=== PATIENT | male | born 1945 | race Caucasian/White ===

== ENCOUNTER 2025-01-21 11:18 | Emergency (ER) | payer MEDICARE, OTHER, SELFPAY ==
[2025-01-21] VITALS (11 sets, daily range): BP systolic 121–154; BP diastolic 61–79; PULSE 65–99; RESP 15–22; TEMP 36.9; O2SAT 98–100
--- NOTE | ~2025-01-21 | CT_ITS ---
EXAMINATION: CTA chest PE protocol DATE: 01/21/2025 15:00 CDT INDICATION: TECHNIQUE: Computed tomographic angiography (CTA) of the chest was performed with 100 mL Omnipaque-35 0 intravenous contrast. The dose-length product was 532.10 mGy-cm. Maximum intensity projection 3D-re constructions of the aorta and other arteries were constructed by the technologist on a separate work station. COMPARISON: None. FINDINGS/OBSERVATIONS: PULMONARY ARTERIES: No filling defect is identified within the main or proximal pulmonary artery. The main pulmonary artery is not enlarged. THORACIC AORTA: No aneurysmal dilatation or dissection is present. The great vessels are intact LUNGS: Diffuse panlobular emphysema. Trace pleural thickening. Peripheral honeycombing is noted. Within the superior segment of the right lower lobe is a 3.5 mm calcified nodule, corresponding to th e abnormality seen on plain radiograph. An additional 3 mm calcified nodule is identified within the right middle lobe, consistent with prior granulomatous disease and corresponding to the abnormalities seen on plain radiograph. Peripheral bleb formation is also noted, right greater than left. The remainder of the lungs are clear. MEDIASTINUM: Calcified lymph nodes within the mediastinum, consistent with prior granulomatous diseas e. No morphologically suspicious or pathologically enlarged lymph nodes are identified within the med iastinum or bilateral axilla. BONES OF THE CHEST: No acute fracture. There are bridging endplate osteophytes at multiple levels in the thoracic spine, consistent with dif fuse idiopathic skeletal hyperostosis (DISH). No lytic or blastic lesions. HEART: The heart is of normal size, without pericardial effusion. IMPRESSION: No pulmonary embolus. No thoracic aortic dissection. Findings consistent with prior granulomatous disease corresponding to the abnormalities seen on plain radiograph for which no further follow-up is needed. Additional findings consistent with chronic lung disease, as detailed above. Reviewed, dictated and finalized at location A. IMPRESSION: No pulmonary embolus. No thoracic aortic dissection. Findings consistent with prior granulomatous disease corresponding to the abnor malities seen on plain radiograph for which no further follow-up is needed. Additional findings consistent with chronic lung disease, as detailed above.
--- NOTE | ~2025-01-21 | XR_ITS ---
HISTORY: recent R knee surgery . Elevated blood sugar and lactic acidosis. COMPARISON: None TECHNIQUE: 4 views of the right knee were performed FINDINGS: Post right knee arthroplasty with patellar resurfacing in expected position. Lucency within the distal shaft of the femur and proximal shaft of the tibia suggesting prior hardwar e implementation at these sites. Soft tissue swelling is also noted, to be expected. No periprosthetic fracture is appreciated. IMPRESSION: Expected perioperative appearance of a right knee arthroplasty with patellar resurfacing , as detailed above Reviewed, dictated and finalized at location A. IMPRESSION: Expected perioperative appearance of a right knee arthroplasty wit h patellar resurfacing, as detailed above
--- NOTE | ~2025-01-21 | XR_ITS ---
CHEST RADIOGRAPH, PA AND LATERAL CLINICAL HISTORY: intermittent chest pain . COMPARISON: None available TECHNIQUE: PA and lateral views of the chest. FINDINGS Small hiatal hernia. The remainder of the cardiomediastinal silhouette is otherwise unremarkable. 8.6 mm asymmetry within the right upper lobe which noncontrast enhanced CT suggested for further eval uation. This may simply represent a calcified granuloma versus a bone island on the right scapula. The lungs are otherwise clear. IMPRESSION: Findings within the right upper lobe for which noncontrast enhanced CT is suggested, if the patient i s clinically able. Reviewed, dictated and finalized at location A. IMPRESSION: Findings within the right upper lobe for which noncontrast enhanced CT is sugge sted, if the patient is clinically able.
[2025-01-21 11:49] LABS: Hematocrit 45.3 % (42.0-52.0); Hemoglobin 14.6 g/dL (14.0-18.0); Immature Granulocyte Percent A 0.1 % (0-0.5); Lymphocytes Absolute Auto 2.12 K/mm3 (0.9-3.2); Mean Corpuscular HGB Conc 32.2 g/dl (32-36); Mean Corpuscular Hemoglobin 31.9 pg (26-34); Mean Corpuscular Volume 98.9 fl (80-100); Nucleated Red Blood Cells Absolute Auto 0.000 K/mm3 (0.0-0.012); Nucleated Red Blood Cells Perc 0.0 % (0.0-0.2); Platelet Count Result 508 k/mm3 (150-375); Red Blood Count 4.58 M/mm3 (4.6-6.20); White Blood Count 7.2 K/mm3 (4.5-10.0)
--- NOTE | 2025-01-21 12:07 | ED_ITS ---
HPI - Recheck/Abnormal Lab/Rx General Chief Complaint: Recheck/Abnormal Lab/Rx Stated Complaint: high BG Time Seen by Provider: 01/21/25 11:21 History of Present Illness HPI narrative: Patient is an 79-year-old male who presents to the ER with concerns for an elevated blood sugar and slight dizziness. He reports yesterday he saw his orthopedic surgeon because he recently had right knee replacement. Patient reports he felt dizzy and his blood pressure was low (80s/40s) yesterday so his orthopedic surgeon sent him directly to his [employer] industrial [employer]. He reports he received some IV fluids at his fabricator industrial furnace's office and was sent home due to his resolution of symptoms. Patient reports this morning he felt an uneasy chest and slightly dizzy. He reports he took his blood sugar before breakfast this morning and his blood sugar was in the 140s. Patient reports he took his blood sugar after he ate a bowl of cereal and it was 241. He was concerned that this was too high so he called his [employer] industrial [employer] who advised him to go to the ER. Patient endorses a history of 3 cardiac stents, an aortic aneurysm, diabetes, hyperlipidemia, and is on a blood thinner. He reports his [employer] DC'd his losartan yesterday after his low blood pressure reading. Patient denies any recent fevers, purulence drainage from his right knee, increased redness or swelling around his right knee, chest pain, back pain, or current shortness of breath. He reports his [employer] industrial furnace prescribes his metformin and recently tried to add Ozempic, but insurance has not approved it yet. Related Data Allergies Allergy/AdvReac Type Severity Reaction Status Date / Time No Known Allergies Allergy Verified 01/21/25 12:40 Review of Systems 2 Review of Systems: All systems reviewed & are unremarkable except as noted in HPI and below Exam 2 Narrative: GENERAL: Well appearing, well-nourished, non-toxic, in no acute distress. HEAD: Normocephalic, atraumatic. NECK: Supple. No adenopathy, no masses. RESPIRATORY: Airway patent, respirations nonlabored. Clear to auscultation bilaterally, no rales, rhonchi, wheezing. CARDIOVASCULAR: Regular rate and rhythm without murmurs, rubs, or gallops. Peripheral pulses 2+ and equal bilaterally. ABDOMINAL: Soft, nontender, nondistended, no hepatosplenomegaly. Normoactive BS. MUSCULOSKELETAL: Moves all extremities. Strength/ROM intact without gross deformities. SKIN: Warm, dry, normal color. No rashes. Right knee edematous, but incision dry and intact, no serous or purulence drainage, no redness NEURO: A&O X3. Speech clear. Cranial nerves II-XII intact. No ataxic movements. PSYCHIATRIC: Appropriate mood and affect. Normal interaction. Course Vital Signs Vital signs: Vital Signs Temperature 36.9 C 01/21/25 11:30 Pulse Rate 99 01/21/25 11:30 Respiratory Rate 16 01/21/25 11:30 Blood Pressure 152/79 H 01/21/25 11:30 Pulse Oximetry 98 01/21/25 11:30 Oxygen Delivery Room Air 01/21/25 11:30 Temperature 36.9 C 01/21/25 11:30 Pulse Rate 69 01/21/25 16:31 Respiratory Rate 22 H 01/21/25 16:31 Blood Pressure 142/68 H 01/21/25 16:31 Pulse Oximetry 100 01/21/25 16:31 Oxygen Delivery Room Air 01/21/25 11:30 MDM - Recheck/Abnormal Lab/Rx MDM Narrative Medical decision making narrative: Patient is an 79-year-old male who presents to the ER with concerns for an elevated blood sugar and slight dizziness. He reports yesterday he saw his orthopedic surgeon because he recently had right knee replacement. Patient reports he felt dizzy and his blood pressure was low (80s/40s) yesterday so his orthopedic surgeon sent him directly to his [employer]. He reports he received some IV fluids at his fabricator industrial furnace's office and was sent home due to his resolution of symptoms. Patient reports this morning he felt an uneasy chest and slightly dizzy. He reports he took his blood sugar before breakfast this morning and his blood sugar was in the 140s. Patient reports he took his blood sugar after he ate a bowl of cereal and it was 241. He was concerned that this was too high so he called his [employer] who advised him to go to the ER. Patient endorses a history of 3 cardiac stents, an aortic aneurysm, diabetes, hyperlipidemia, and is on a blood thinner. He reports his [employer] industrial furnace DC'd his losartan yesterday after his low blood pressure reading. Patient denies any recent fevers, purulence drainage from his right knee, increased redness or swelling around his right knee, chest pain, back pain, or current shortness of breath. He reports his [employer] industrial furnace prescribes his metformin and recently tried to add Ozempic, but insurance has not approved it yet. Labs Ordered: CBC, CMP, hemoglobin A1c, troponin, INR, PTT, lactic acid, CRP, proBNP, phosphorus, magnesium, beta hydroxybutyrate Imaging Ordered: Patient's right knee x-ray indicates Post right knee arthroplasty with patellar resurfacing in expected position. Lucency within the distal shaft of the femur and proximal shaft of the tibia suggesting prior hardware implementation at these sites. Soft tissue swelling is also noted, to be expected. No periprosthetic fracture is appreciated. Patient's chest x-ray indicates small hiatal hernia. The remainder of the cardiomediastinal silhouette is otherwise unremarkable. 8.6 mm asymmetry within the right upper lobe which noncontrast enhanced CT suggested for further evaluation. This may simply represent a calcified granuloma versus a bone island on the right scapula. The lungs are otherwise clear. Patient's CTA chest indicates No pulmonary embolus. No thoracic aortic dissection. Findings consistent with prior granulomatous disease corresponding to the abnormalities seen on plain radiograph for which no further follow-up is needed. Additional findings consistent with chronic lung disease, as detailed above. Medications Ordered: Vancomycin IV, 3 L normal saline IV bolus Results: Patient's CBC indicates a red blood cell count of 4.58, platelet count of 508. His coags were within normal limits. Patient's CMP indicates a sodium of 136, chloride of 109, carbon dioxide of 21. His hemoglobin A1c is 6.5%. Patient's initial calcium was 9.1 (prior to normal saline boluses). His bilirubin was 1.5, and alk-phos is 189. Patient's troponin was 0.013. His CRP is 0.6. Patient's proBNP is 87. His beta hydroxybutyrate is 0.21. Patient's urinalysis indicates the specific gravity 1.042 and glucose of 3+. CRITICAL CARE ADDENDUM: Indication: R/O sepsis Time type: intermittent I provided a total of 55 minutes of critical care excluding separately billable procedures. This includes time w/ EMS, initial bedside evaluation, reviewing old records, review of testing done while under my care, discussion w/ the family, nurses, group segment consultant and guiding the patient?s care while in the emergency department. Approximate time distribution: 15 minutes ? Initial evaluation, d/w involved parties, attempting to gather old records. 10 minutes ? Documenting medical record 10 minutes ? Review of results (EKGs, labs, imaging) 10 minutes ? Serial repeat bedside evaluation 10 minutes ? Discussing case with multiple providers Excludes separately billable procedures. Diagnosis: Dizziness, hyperglycemia, mild dehydration Consults: [id number]-spoke with patient's orthopedic surgeon's office who reports patient's visit yesterday was unremarkable with no concerns for infection or other surgical abnormality. 1615- Spoke with pt's fabricator industrial furnace who endorses pt's account of him becoming hypotensive and receiving IV fluids in their office yesterday, but their [employer] M[employer] LABORAT[employer] TECHNICIAN reports the fabricator industrial furnace did not find anything wrong with him. She reports they told him to hold his Losartan for now since his blood pressure was low. The EAR MOLD LABORATORY TECHNICIAN also reports pt is not prescribed Metformin by his [employer]ator industrial [employer] (as pt stated), but he was prescribed Ozempic by them yesterday because patient was unable to tolerate an increase in his metformin dose and his A1c was greater than 7. The fabricator industrial furnace's office reports pt does not need to be admitted to the hospital from their standpoint. 1600- Attempted to call pt's PCP office (Dr. Yayo Coats [phone]) but it was closed for the day. Patient Education/Shared MDM: Results of lab work and imaging shared with patient and his daughter. He reports he has not had any symptoms of dizziness or chest uneasiness since he has been in the ER. Patient reports he believes his chest and the easiest may have been related to anxiety regarding his upcoming physical therapy appointments. He continues to denies shortness of breath. Patient will receive his full dose of vancomycin IV. He received 3 L normal saline IV bolus due to the initial concern for sepsis. Patient strongly advised to maintain hydration status upon discharge and follow-up with his primary care provider as soon as possible. He is also advised to call his insurance company to determine whether not patient could get his Ozempic prescription filled. Patient and his daughter were advised to only take patient's blood sugar one time per day, as he is not on insulin or any other diabetic medication at this time. They were also educated to not do a blood sugar check after patient has eaten. Patient was advised to only use his Ixonia for pain control when he needs it, as this may contribute to his symptoms of dizziness. RN have patient ambulate around the ER and he tolerated it well without any symptoms. He will not be discharged home with any new prescriptions. Strict return precautions provided. Patient verbalized understanding and is in agreement with plan. Vital signs stable at time of discharge. All questions answered. Differential Diagnosis Differential diagnosis: Likely other (Dizziness, sepsis, elevated lactic acid, hyperglycemia) Lab Data Attestation: I reviewed the patient's lab results. 01/21/25 11:36 01/21/25 15:17 Labs: Lab Results 01/21/25 01/21/25 01/21/25 Range/Units 11:23 11:36 11:36 WBC 7.2 (4.5-10.0) K/mm3 RBC 4.58 L (4.6-6.20) M/mm3 Hgb 14.6 (14.0-18.0) g/dL Hct 45.3 (42.0-52.0) % MCV 98.9 (80-100) fl MCH 31.9 (26-34) pg MCHC 32.2 (32-36) g/dl RDW 12.3 (11.5-14.5) % Plt Count 508 H (150-375) k/mm3 MPV 9.2 (7.4-10.4) fl Immature Gran % (Auto) 0.1 (0-0.5) % Neut % (Auto) 60.8 (45.5-73.1) % Lymph % (Auto) 29.3 (18.3-44.2) % [place] % (Auto) 7.5 (2.6-8.5) % Eos % (Auto) 1.9 (0-4.4) % Baso % (Auto) 0.4 (0.2-1.2) % Lymph # (Auto) 2.12 (0.9-3.2) K/mm3 [place] # (Auto) 0.5 (0.1-0.6) K/mm3 Eos # (Auto) 0.1 (0-0.3) K/mm3 Baso # (Auto) 0.0 (0.0-0.1) K/mm3 Abs Immat Gran (auto) 0.01 (0.00-0.031) K/mm3 Absolute Neuts (auto) 4.4 (1.3-6.7) K/mm3 Absolute Nucleated RBC 0.000 (0.0-0.012) K/mm3 Nucleated RBC % 0.0 (0.0-0.2) % PT 14.3 (11.1-14.7) Seconds INR 1.1 APTT 28.6 (22.3-36.8) Seconds Sodium 133 L (137-145) mmol/L Potassium 3.6 (3.4-5.0) mmol/L Chloride 100 (98-107) mmol/L Carbon Dioxide 20 L (22-30) mmol/L Anion Gap 13 H (4-12) mmol/L BUN 19 (9-20) mg/dL Creatinine 1.11 (0.7-1.3) mg/dL Estim Creat Clear Calc Not Reportable Estimated GFR > 60 (59 - ) Glucose 227 H (65-110) mg/dL POC Capillary Glucose 231 H (65-105) mg/dl Hemoglobin A1c 6.5 H (<5.7) % Lactic Acid 4.1 H* (0.7-2.0) mmol/L Calcium 9.9 (8.4-10.2) mg/dL Phosphorus 3.5 (2.5-4.5) mg/dL Magnesium 2.0 (1.6-2.3) mg/dL Total Bilirubin 1.5 H (0.2-1.3) mg/dL AST 39 (17-59) U/L ALT 30 (6-50) U/L Alkaline Phosphatase 189 H (38-126) U/L Troponin I 0.014 Cancelled (0.000-0.034) ng/mL C-Reactive Protein (<1.0) mg/dL NT-Pro-B Natriuret Pep (19.9-100) pg/mL Total Protein 8.0 (6.3-8.2) g/dL Albumin 4.1 (3.5-5.1) g/dL Beta-Hydroxybutyrate/Acetoacetate 0.21 (0.02-0.27) mmol/L Urine Color (Yellow) Urine Appearance (Clear) Urine pH (5.0-9.0) Ur Specific [place] (1.001-1.035) Urine Protein (Negative) mg/dL Urine Glucose (UA) (Negative) mg/dL Urine Ketones (Negative) mg/dL Ur Blood (Man) (Negative) Urine Nitrate (Negative) Urine Bilirubin (Negative) Urine Urobilinogen (<2.0) mg/dL Leukocyte Esterase Rfl (Negative) KENYA/UL 01/21/25 01/21/25 01/21/25 Range/Units 13:06 13:51 15:17 WBC (4.5-10.0) K/mm3 RBC (4.6-6.20) M/mm3 Hgb (14.0-18.0) g/dL Hct (42.0-52.0) % MCV (80-100) fl MCH (26-34) pg MCHC (32-36) g/dl RDW (11.5-14.5) % Plt Count (150-375) k/mm3 MPV (7.4-10.4) fl Immature Gran % (Auto) (0-0.5) % Neut % (Auto) (45.5-73.1) % Lymph % (Auto) (18.3-44.2) % [place] % (Auto) (2.6-8.5) % Eos % (Auto) (0-4.4) % Baso % (Auto) (0.2-1.2) % Lymph # (Auto) (0.9-3.2) K/mm3 [place] # (Auto) (0.1-0.6) K/mm3 Eos # (Auto) (0-0.3) K/mm3 Baso # (Auto) (0.0-0.1) K/mm3 Abs Immat Gran (auto) (0.00-0.031) K/mm3 Absolute Neuts (auto) (1.3-6.7) K/mm3 Absolute Nucleated RBC (0.0-0.012) K/mm3 Nucleated RBC % (0.0-0.2) % PT (11.1-14.7) Seconds INR APTT (22.3-36.8) Seconds Sodium 136 L (137-145) mmol/L Potassium 3.9 (3.4-5.0) mmol/L Chloride 109 H (98-107) mmol/L Carbon Dioxide 21 L (22-30) mmol/L Anion Gap 6 (4-12) mmol/L BUN 17 (9-20) mg/dL Creatinine 0.84 (0.7-1.3) mg/dL Estim Creat Clear Calc 77 Estimated GFR > 60 (59 - ) Glucose 103 (65-110) mg/dL POC Capillary Glucose (65-105) mg/dl Hemoglobin A1c (<5.7) % Lactic Acid 1.6 (0.7-2.0) mmol/L Calcium 7.7 L (8.4-10.2) mg/dL Phosphorus (2.5-4.5) mg/dL Magnesium (1.6-2.3) mg/dL Total Bilirubin (0.2-1.3) mg/dL AST (17-59) U/L ALT (6-50) U/L Alkaline Phosphatase (38-126) U/L Troponin I 0.013 (0.000-0.034) ng/mL C-Reactive Protein 0.6 (<1.0) mg/dL NT-Pro-B Natriuret Pep 87 (19.9-100) pg/mL Total Protein (6.3-8.2) g/dL Albumin (3.5-5.1) g/dL Beta-Hydroxybutyrate/Acetoacetate (0.02-0.27) mmol/L Urine Color Yellow (Yellow) Urine Appearance Clear (Clear) Urine pH 5.0 (5.0-9.0) Ur Specific [place] 1.042 H (1.001-1.035) Urine Protein Negative (Negative) mg/dL Urine Glucose (UA) 3+ H (Negative) mg/dL Urine Ketones Negative (Negative) mg/dL Ur Blood (Man) Negative (Negative) Urine Nitrate Negative (Negative) Urine Bilirubin Negative (Negative) Urine Urobilinogen 0.2 (<2.0) mg/dL Leukocyte Esterase Rfl Negative (Negative) KENYA/UL Imaging Data Attestation: I personally reviewed and interpreted this imaging study as follows: Radiologist's impression: Impressions Chest X-Ray 01/21/25 13:44 IMPRESSION: Findings within the right upper lobe for which noncontrast enhanced CT is suggested, if the patient is clinically able. Knee X-Ray 01/21/25 13:46 IMPRESSION: Expected perioperative appearance of a right knee arthroplasty with patellar resurfacing, as detailed above Chest CTA 01/21/25 15:00 IMPRESSION: No pulmonary embolus. No thoracic aortic dissection. Findings consistent with prior granulomatous disease corresponding to the abnormalities seen on plain radiograph for which no further follow-up is needed. Additional findings consistent with chronic lung disease, as detailed above. Discharge Plan Discharge Clinical Impression: Dizziness, Hyperglycemia, Dehydration, mild Patient Disposition: Home Condition: Guarded Prognosis Instructions: Antibiotic Form, Dizziness (ED), Diabetic Hyperglycemia (ED) Additional Instructions: Please return to the ER with any worsening symptoms. Follow-up with primary care provider as soon as possible. Please follow-up with your [employer] and orthopedic surgeon, as planned. Take all medications as prescribed, including regularly scheduled medications. Only use your Ixonia when needed, as this may contribute to the your dizziness. Please remember to drink lots of water. You only need to check your blood sugar 1 time per day. Please call your insurance company to follow-up on your Ozempic prescription. Patient Language: Guatemalan Follow-up/Referrals: PHYSICIAN NOT ON STAFF,NONSTAFF [Primary Care Provider] - Time of Disposition: 17:47
--- NOTE | 2025-01-21 12:09 | ECG_ITS ---
Test Date: 2025-01-21 13:47:35 Measurements Intervals [place] Rate: 67 P: 2 [place]: 319 QRS: 20 QRSD: 98 T: 23 QT: 402 QTc: 425 Interpretive Statements SINUS RHYTHM WITH FIRST DEGREE AV BLOCK BORDERLINE R WAVE PROGRESSION, ANTERIOR LEADS CONSIDER INFERIOR INFARCT, AGE INDETERMINATE BASELINE ARTIFACT- I, II, III, AVR, AVL, AVF, V2 ABNORMAL ECG No previous ECG available for comparison Electronically Signed On 01-21-2025 14:25:17 CDT by Jose L Roland D.O.
--- NOTE | 2025-01-21 12:12 | PC.NURSE ---
lab called to add on Trop I, PT INR, and PTT
[2025-01-21 12:13] LABS: Alanine Aminotransferase 30 U/L (6-50); Albumin Level 4.1 g/dL (3.5-5.1); Alkaline Phosphatase 189 U/L (38-126); Anion Gap 13 mmol/L (4-12); Aspartate Amino Transferase 39 U/L (17-59); Bilirubin,Total 1.5 mg/dL (0.2-1.3); Blood Urea Nitrogen 19 mg/dL (9-20); Calcium 9.9 mg/dL (8.4-10.2); Carbon Dioxide 20 mmol/L (22-30); Chloride 100 mmol/L (98-107); Estimated Glomerular Filt Rate > 60; Glucose 227 mg/dL (65-110); Magnesium 2.0 mg/dL (1.6-2.3); Potassium 3.6 mmol/L (3.4-5.0); Sodium 133 mmol/L (137-145); Total Protein 8.0 g/dL (6.3-8.2)
[2025-01-21 12:19] LABS: Beta-Hydroxybutyrate/Acetoacetate 0.21 mmol/L (0.02-0.27)
[2025-01-21 12:32] LABS: INR 1.1; Prothrombin Time 14.3 Seconds (11.1-14.7)
[2025-01-21 12:33] LABS: Partial Thromboplastin Time 28.6 Seconds (22.3-36.8)
[2025-01-21] MEDS: SODIUM CHLORIDE 0.9% IV 1,000 ML 999 ML IV CONT ×3 (12:39→13:53)
--- OUTSIDE RECORDS SUMMARY | 2025-01-21 12:59 | XMS_ITS | Encounter Summary ---
Author Name [facility] [facility] [place] [facility] [place] Address [address] [place] [address] Care Team Providers Care Wellness Health Coach Name Role Phone KARON GARCIA Primary Care Provider KENIA Mccabe Primary Care Provider UnavailSTEVEN Helms Primary Care Provider Unavailab brizuela Insurance Providers: All historical and current Section Date Range: From patient's date of to the date document was created. This section includes the names of all active insurance providers for the patient. Insurance Provider Type of Coverage Plan Name Start of Policy Coverage End of Policy Coverage Group Number Member ID Insurance Provider's Telephone Number Policy Silva's Name Patient's Relationship to Policy Silva AETNA MEDICARE SECONDARY (NO B EXC) MAXIMO PALMA Jul 22, 2023 [id number] GABBI,GE DELONTE PATIENT AETNA PREFERRED PROVIDER ORGANIZAT ION (PPO) MAXIMO PALMA Apr 22, 2023 [id number] GABBIRUSSELL RUSHTrudy PATIENT AETNA PREFERRED PROVIDER ORGANIZAT ION (PPO) MAXIMO PALMA Jun 23, 2014 [id number] [phone] RUSSELL SEO PATIENT AETNA PHARMACY PRESCRIPT ION NONE Feb 11, 2017 NONE [id number] RUSSELL SEO PATIENT AETNA PHARMACY PRESCRIPT ION NONE Feb 11, 2017 NONE [id number] [phone] RUSSELL SEOD PATIENT AETNA RX PRESCRIPT ION RX PLAN Jun 23, 2021 [id number] RUSSELL SEOD PATIENT AETNA RX PRESCRIPT ION RX PLAN Jun 23, 2021 [id number] RUSSELL SEOD PATIENT AETNA RX PRESCRIPT ION FEHBP Jun 23, 2014 [id number] RUSSELL SEOD PATIENT AETNA [facility] PREFERRED PROVIDER ORGANIZAT ION (PPO) MAXIMO PALMA Jun 23, 2014 [id number] RUSSELL SEOD PATIENT MEDICARE (WNR) MEDICARE () PART B May 23, 2008 PART B [id number] [phone] RUSSELL SEOD PATIENT MEDICARE (WNR) MEDICARE () PART B May 23, 2008 PART B [id number] [phone] RUSSELL SEOD PATIENT MEDICARE (WNR) MEDICARE () PART A Apr 23, 2008 PART A [id number] [phone] RUSSELL SEOD PATIENT MEDICARE (WNR) MEDICARE () PART A Apr 23, 2008 PART A [id number] [phone] RUSSELL SEOD PATIENT MEDICARE (WNR) MEDICARE () PART A Apr 23, 2008 PART A [id number] [phone] RUSSELL SEOD PATIENT MEDICARE (WNR) MEDICARE () PART B Apr 23, 2008 PART B [id number] [phone] RUSSELL SEOD PATIENT Selected Encounter This section includes the information on record at [place] for the Encounter. Date/Time Encounter Type Encounter Description Reason Provider Source Apr 12, 2024 01:00 PM OFFICE O/P EST MOD 30 MIN ANESTHESIA PRE/POST-OP CONSULT ICD-10-CM Z01.818 Encounter for other preprocedural examination NITHYA PRO [facility] Encounter Template Text not used by [place] Assessments - Encounter Diagnoses This section includes the primary and secondary diagnoses documented for the Encounter. Date/Time Primary/Secondary Diagnosis Diagnosis Name Provider Source Apr 22, 2024 11:19 AM PRIMARY Encounter for other preprocedural examination NITHYA PRO [facility] Apr 22, 2024 11:19 AM SECONDARY Abdominal aortic aneurysm, without rupture, unspecified NITHYA PRO LAINE Valenzuela [facility] Apr 22, 2024 11:19 AM SECONDARY Coronary atherosclerosis due to lipid rich plaque NITHYA PRO Nicolas [facility] Apr 22, 2024 11:19 AM SECONDARY Essential (primary) hypertension NITHYA PRO Nicolas [facility] Apr 22, 2024 11:19 AM SECONDARY Fistula of gallbladder NITHYA PRO Nicolas [facility] Apr 22, 2024 11:19 AM SECONDARY Gastro-esophageal reflux disease without esophagitis NITHYA PRO Nicolas [facility] Apr 22, 2024 11:19 AM SECONDARY Hyperlipidemia, unspecified PRO,REBSOM JANG Nicolas [facility] Apr 22, 2024 11:19 AM SECONDARY Old myocardial infarction NITHYA PRO Nicolas [facility] Apr 22, 2024 11:19 AM SECONDARY Pain in unspecified knee NITHYA PRO Nicolas [facility] Apr 22, 2024 11:19 AM SECONDARY Presence of coronary angioplasty implant and graft NITHYA PRO [facility] Apr 22, 2024 11:19 AM SECONDARY Type 2 diabetes mellitus with diabetic neuropathy, unsp NITHYA PRO [facility] Plan of Treatment: Future Appointments (+ 6 months) and Future Tests (+/- 45 days) The Plan of Treatment section includes future care activities for the patient from all [place] [facility]. This section includes future appointments and future orders which are active, pending or scheduled. Future Appointments This section includes appointments that were scheduled to occur 6 months from the date of the Encounter, up to a maximum of 20 appointments. The data comes from all [place] treatment facilities. Appointment Date/Time Appointment Type Appointme nt Facility Name Apr 14, 2024 02:00 PM AMBULATORY - MEDICINE [facility] May 06, 2024 11:00 AM AMBULATORY - MEDICINE [facility] May 10, 2024 06:00 AM AMBULATORY - NONE . TAYLOR Walters [facility] May 12, 2024 01:00 PM AMBULATORY - MEDICINE WASH RUI [facility] May 19, 2024 01:30 PM AMBULATORY - SURGERY . Neal LOVE [facility] May 31, 2024 10:00 AM AMBULATORY - NONE [facility] Aug 18, 2024 11:41 AM AMBULATORY - MEDICINE EMERITA N [facility] Aug 19, 2024 08:30 AM AMBULATORY - NONE ROMERO C. [facility] Sep 22, 2024 11:30 AM [facility] Active, Pending, and Scheduled Orders This section includes a listing of several types of active, pending, and scheduled orders, including clinic medications orders, diagnostic test orders, procedure orders and consult orders; where the start date of the order is 45 days before the date of the Encounter or 45 days after the date of theEncounter. The data comes from all [place] treatment facilities. Test Date/Time Test Type Test Details Facility Name Mar 01, 2024 12:00 AM Laboratory - Blood Bank Order TYPE & SCREEN - LAB BLOOD SP [facility] Mar 26, 2024 12:00 AM Laboratory - Chemi stry Order CYSTATIN C EGFR PANELS (STL-PB-MA) GREEN LI/HEP BLD/PLAS PLASMA [facility] Lab Results: +/- 30 days of the encounter This section includes the Chemistry and Hematology Lab Results on record with [place] for the patient. Radiology Reports and Pathology Reports are provided separately, in subsequent sections. Lab Results This section contains the Chemistry/Hematology Results that were resulted 30 days before or 30 daysafter the date of the Encounter. Date/Time Source Result Type Result - Unit Interpretation Reference Range Specimen Type Comment May 11, 2024 05:[address] [facility] GLUCOSE,BLOOD-poct (STL) BLOOD Specimen Type: BLOOD Comment: Test Performed by: [id number] Meter #: [id number] Ordering Provider: DARY MORRISON Report Released Date/Time: May 11, 2024 06:36 AM Reporting Lab: [place] [address] [facility] [address] Performing Lab: [address] [address] GLUCOSE,BLOOD-poct (STL) 154 mg/dL H 72-99 May 11, 2024 12:40 AM [facility] BASIC METABOLIC PANEL PLASMA Specimen Type: PL ASMA Comment: No hemolysis noted. Ordering Provider: EDDIE HAYES Report Released Date/Time: May 10, 2024 11:48 PM Reporting Lab: [address] [address] Performing Lab: [address] [address] CREATININE 1.14 mg/dL 0.7-1.3 UREA NITROGEN 17.3 mg/dL 9.0-25.0 GLUCOSE 236 mg/dL H 72-99 SODIUM 136 meq/L 136-145 POTASSIUM 4.3 meq/L 3.5-5 CHLORIDE 105 meq/L 98-107 CARBON DIOXIDE 21 meq/L L 22-31 CALCIUM 9.2 mg/dL 8.4-10.4 EGFR (CKD-EPI 2020) 64.6 >60 May 11, 2024 12:40 AM [facility] CBC BLOOD Specimen Type: BLOOD No comment entered. Ordering Provider: EDDIE HAYES Report Released Date/Time: May 10, 2024 11:48 PM Reporting Lab: [address] [address] Performing Lab: [address] [address] WBC 13.3 10*3/uL H 3.6-11.2 RBC 4.49 10*6/uL 4.10-5.70 HGB 14.5 g/dL 13.1-16.8 HCT 42.9 38.2-48.4 MCV 95.5 fL 80.0-100.0 MCH 32.3 pg 27.0-34.0 MCHC 33.8 g/dL 33.0-36.0 PLT 211 10*3/uL 150-400 MPV 10.3 fL 7.5-11.2 RDW 13.1 11.8-15.1 LYMPHOCYTES, AUTO % 8 MONOCYTES, AUTO % 7 NEUTROPHILS, AUTO % 85 EOSINOPHILS, AUTO % 0 BASOPHILS, AUTO % 0 LYMPHOCYTES, ABSOLUTE 1.04 10*3/uL 0.77- 4.50 MONOCYTES, ABSOLUTE 0.88 10*3/uL H 0.19-0. 80 NEUTROPHILS, ABSOLUTE 11.32 10*3/uL H 2.10 -8.00 EOSINOPHILS, ABSOLUTE 0.00 10*3/uL 0.00- 0.60 BASOPHILS, ABSOLUTE 0.02 10*3/uL 0.00-0. 20 May 10, 2024 08:21 PM [facility] GLUCOSE,BLOOD-poct (STL) BLOOD Specimen Type: BLOOD Comment: Test Performed by: [id number] Meter #: [id number] Ordering Provider: LORELEI MORRISON Report Released Date/Time: May 10, 2024 09:18 PM Reporting Lab: [address] [address] Performing Lab: [address] [address] GLUCOSE,BLOOD-poct (STL) 192 mg/dL H May 10, 2024 04:13 PM [facility] GLUCOSE,BLOOD-poct (STL) BLOOD Specimen Type: BLOOD Comment: Test Performed by: [id number] Meter #: [id number] Ordering Provider: LORELEI MORRISON Report Released Date/Time: May 10, 2024 05:13 PM Reporting Lab: [address] [address] Performing Lab: [address] [address] GLUCOSE,BLOOD-poct (STL) 156 mg/dL H 72-May 10, 2024 12:47 PM [facility] MRSA SURVL NARES DNA NARES Specimen Type: ADAM ES Comment: Qualitative real-time PCR test for the rapid detection of methicillin-resistant Staphylococcus aureus (MRSA) DNA from nasal swabs. A negative result does not preclude infection with the agent(s) tested and should not be used as the sole basis for treatment or other patient management decisions. A positive test does not necessarily indicate the presence of viable organisms, following bacterial culture to recover the organism for further characterization and susceptibility testing. All results must be combined with clinical observations, patient history, and epidemiological information for final interpretation. Ordering Provider: LORELEI MORRISON Report Released Date/Time: May 10, 2024 12:47 PM Reporting Lab: [facility] [address] [place] [address] Performing Lab: [address] [address] MRSA SURVL NARES DNA Negative Negative May 10, 2024 06:30 AM [facility] GLUCOSE,BLOOD-poct (STL) BLOOD Specimen Type: BLOOD Comment: Test Performed by: [id number] Meter #: [id number] Ordering Provider: BANDAR LONGORIA Report Released Date/Time: May 10, 2024 06:43 AM Reporting Lab: [facility] [address] [place] [address] Performing Lab: [address] [address] GLUCOSE,BLOOD-poct (STL) 174 mg/dL H 72-99 Mar 26, 2024 11:30 AM [facility] MICRAL/CREAT PROFILE (STL) URINE Specimen Typ e: URINE Comment: uALB/CREAT Ratio Unable to be calculated Unable to calculate due to Microalbumin < 5.0 mg/L Ordering Provider: STEVEN SCHMIDT Report Released Date/Time: Mar 26, 2024 08:32 AM Reporting Lab: [facility] [address] [place] [address] Performing Lab: [address] [address] URINE ALBUMIN (PB-STL) <5.0 mg/L uACR (STL) comment mg/g 0-29 CREATININE URINE/OTHERS 75.5 mg/dL 63-16 6 Vital Signs: All taken on the encounter date This section contains inpatient and outpatient Vital Signs collected on the date of the Encounter. Date/Time Temperature Pulse Blood Pressure Respiratory Rate SP02 Pain Height Weight Body Mass Index Source Apr 12, 2024 01:15 PM 97.8 67 135/74 16 96 72 221 30 [facility] Advance Directives: All historical and current Section Date Range: From patient's date of to the date document was created. This section includes ALL of a patient's completed or amended [place] Advance and Rescinded Directives. The entries below indicate that a directive exists for the patient, but an actual copy is not included with this document. The data comes from all [place] facilities. Date Advance Directives Provider Source Jan 14, 2022 ADVANCE DIRECTIVE DISCUSSION SHEA WINTER [facility] Pathology Reports: +/- 30 days of the encounter Pathology Reports For cases when an order for pathology services may have been completed prior to the date of the Encounter, the report list includes the Pathology Reports that were completed up to 30 days before dateof the Encounter. For cases when an order for pathology services may have been completed after the date of the Encounter, the report list also includes the Pathology Reports that were completed up to30 days after date of the Encounter. The data comes from all [place] treatment facilities. Date/Time Pathology Report Provider Source May 11, 2024 12:18 PM [facility] SUR[facility] PATHOL OGY REPORT: LOCAL TITLE: LR SURGICAL PATHOLOGY REPORT STANDARD TITLE: PATHOLOGY PROCEDURE NOTE DATE OF NOTE: MAY 11, 2024@12:18:06 ENTRY DATE: MAY 11, 2024@12:18:06 AUTHOR: CONCETTA GOMEZ EXP COSIGNER: URGENCY: STATUS: COMPLETED $APHDR - - - - - - - - - - - - - - - - - - - - - - - - - - - - - - - - - - - - - - - - MEDICAL RECORD SURGICAL PATHOLOGY - - - - - - - - - - - - - - - - - - - - - - - - - - - - - - - - - - - - - - - - PATHOLOGY REPORT Accession No. SP [id number] - - - - - - - - - - - - - - - - - - - - - - - - - - - - - - - - - - - - - - - - $TEXT Submitted by: OSWALDO CARR Date obtained: May 10, 2024 15:53 - - - - - - - - - - - - - - - - - - - - - - - - - - - - - - - - - - - - - - - - Specimen (Received May 10, 2024 15:55): A. GALLBLADDER - - - - - - - - - - - - - - - - - - - - - - - - - - - - - - - - - - - - - - - - BRIEF CLINICAL HISTORY: None provided - - - - - - - - - - - - - - - - - - - - - - - - - - - - - - - - - - - - - - - - PREOPERATIVE DIAGNOSIS: Cholecystocolonic fistula - - - - - - - - - - - - - - - - - - - - - - - - - - - - - - - - - - - - - - - - OPERATIVE FINDINGS: None provided - - - - - - - - - - - - - - - - - - - - - - - - - - - - - - - - - - - - - - - - POSTOPERATIVE DIAGNOSIS: Cholecystocolonic fistula Surgeon/physician: LEISA MATHIS =-=-=-=-=-=-=-=-=-=-=-=-=-=- =-=-=-=-=-=-=-=-=-=-=-=-=-=- =-=-=-=-=-=-=-=-=-=-=-= - - - - - - - - - - - - - - - - - - - - - - - - - - - - - - - - - - - - - - - - PATHOLOGY REPORT Accession No. SP [id number] - - - - - - - - - - - - - - - - - - - - - - - - - - - - - - - - - - - - - - - - GROSS DESCRIPTION: (Enzo, 05-10-24) The specimen is received in formalin, in a container labeled with the patient's name, full SSN and designated gallbladder. It consists of one pink brown tubular shaped collapsed tissue fragment that measures 5.0 x 1.5 x 0.6 cm. No stones are identified within this specimen. The external surface is shaggy and smooth with granular luminal surface. It is serially sectioned and submitted entirely in cassettes A1-A2. MICROSCOPIC EXAM: Concetta Gomez MD 05/11/2024 Microscopic description substantiates final diagnosis. DIAGNOSIS: GALLBLADDER, CHOLECYSTECTOMY: - CHRONIC CHOLECYSTITIS - NEGATIVE FOR MALIGNANCY /leobardo/ CONCETTA GOMEZ Pathologist Signed May 11, 2024@12:18 Performing Laboratory: Surgical Pathology Report Performed By: [address] CLIA# [id number] [address] [place] [address] [place] [address] $FTR - - - - - - - - - - - - - - - - - - - - - - - - - - - - - - - - - - - - - - - - (End of report) CONCETTA GOMEZ MD Date May 11, 2024 - - - - - - - - - - - - - - - - - - - - - - - - - - - - - - - - - - - - - - - - LORETO SEO STANDARD FORM 515 ID:[id number] SEX:M :1945 AGE: 79 LOC:APFEE PCP: Lorelei Morrison MD /leobardo/ CONCETTA GOMEZ Pathologist Signed: 05/11/2024 12:18 CONCETTA GOMEZ [facility] Encounter Notes: All associated encounter notes This section contains the clinical notes associated to the Encounter. Date/Time Encounter Note(s) Provider Source Apr 12, 2024 02:50 PM ADDENDUM: LOCAL TITLE: Addendum STANDARD TITLE: ADDENDUM DATE OF NOTE: APR 12, 2024@14:50:59 ENTRY DATE: APR 12, 2024@14:51 AUTHOR: RHETT PRO EXP COSIGNER: URGENCY: STATUS: COMPLETED Received fax from pts [place] cardiology office: [facility], Dr. Coffey A letter dated 04-01-2024 states that pt is considered moderate but acceptable surgical risk for intended procedure and may proceed, also pt okay to hold Plavix for 5 days for surgery. ECHO: 02-26-2024 Summary: Left ventricle: The cavity size was normal. Wall thickness was increased in a pattern of mild LVH. Global systolic function is normal. The left ventricular ejection fraction is 60%. Diastolic function assessment consistent with abnormal left ventricular relaxation (grade 1 diastolic dysfunction). Aortic valve: mild regurgitation Aortic root: The sinus of Valsalva is dilated, measuring 4.2 cm Ascending aorta: The vessel is dilated, measuring 4.8 cm Mitral valve: mild regurgitation Left atrium: The atrium is normal in size Right ventricle: the cavity size is normal. Systolic function is normal Tricuspid valve: mild regurgitation Pulmonic valve: mild regurgitation Pulmonary arteries: The peak systolic pressure is 21mmHg CT Chest/ABD/pelvis: 06-05-2023 Impression: Stable caliber of ascending thoracic aortic aneurysm. 4.6cm The pt may proceed as planned and will have surg team reach out to pt to instruct him on holding of Plavix. /leobardo/ RHETT MARTINEZ Physician Armorer Technician, Anesthesiology Signed: 04/12/2024 15:08 Receipt Acknowledged By: 04/15/2024 06:45 /leobardo/ Maya Knight PA-C General Surgery Physician Armorer Technician 04/16/2024 11:42 /leobardo/ WINSOME SEGURA RN, BSN REGISTERED NURSE --- Original Document --- 04/12/24 ANESTHESIA PREOPERATIVE EVALUATION CONSULT STL: LORETO SEO is a 78 year old MALE ========= Pre-operative diagnosis: colonic-gallbladder fistula Operation proposed: lap noble/poss open/poss colonic fistula takedown on 18 Nov ========= VITALS Age: 78 Weight: 220.2 lb [99.88 kg] (03/26/2024 10:32) Height: 72 in [182.9 cm] (03/26/2024 10:32) BMI: 29.9 Blood pressure: 122/68 (03/26/2024 10:39) Pulse: 86 (03/26/2024 10:32) Temperature: 97.6 F [36.4 C] (03/26/2024 10:32) Respiration: 18 (03/26/2024 10:32) SpO2: 97% (03/26/2024 10:32) Pain: 0 (03/26/2024 10:32) ========= ALLERGIES Patient has answered NKA ========= MEDICATIONS Inpatient: 1) CEFAZOLIN 2GM/BAG INJ,SOLN IVPB Q4H GIVE IN O.R. ON: Apr@07:30 Active Outpatient Medications (including Supplies): Active Outpatient Medications Status ========= 1) ACCU-CHEK GUIDE (GLUCOSE) TEST STRIP USE 1 STRIP FOR ACTIVE BLOOD TEST DIRECTED *METFORMIN ALONE, 50 STRIPS PER YEAR Aug 2) ASPIRIN 81MG EC TAB TAKE ONE TABLET BY MOUTH ONCE A ACTIVE DAY TAKE WITH FOOD. 3) ATORVASTATIN CALCIUM 80MG TAB TAKE ONE TABLET BY ACTIVE (S) MOUTH EVERY EVENING FOR HIGH CHOLESTEROL 4) BUSPIRONE HCL 10MG TAB TAKE ONE-HALF TABLET BY MOUTH ACTIVE (S) ONCE A DAY DO NOT TAKE WITH GRAPEFRUIT JUICE. 5) CARBOXYMETHYLCELLULOSE NA 0.5% OPH SOLN INSTILL 1 ACTIVE DROP IN BOTH EYES FOUR TIMES A DAY NEEDED FOR DRY EYE(S) 6) CETIRIZINE HCL 10MG TAB TAKE ONE TABLET BY MOUTH ONCE ACTIVE A DAY NEEDED FOR ALLERGY SYMPTOMS 7) CHOLECALCIF 50MCG (D3-2,000UNIT) TAB TAKE ONE TABLET ACTIVE BY MOUTH ONCE A DAY FOR VITAMIN D DEFICIENCY 8) CLOPIDOGREL BISULFATE 75MG TAB TAKE ONE TABLET BY ACTIVE MOUTH ONCE A DAY FOR ACUTE CORONARY SYNDROME 9) CYANOCOBALAMIN 1000MCG TAB TAKE ONE TABLET BY MOUTH ACTIVE ONCE A DAY FOR VITAMIN B12 SUPPLEMENTATION 10) CYCLOBENZAPRINE HCL 10MG TAB TAKE ONE TABLET BY MOUTH ACTIVE AT BEDTIME NEEDED FOR MUSCLE SPASM MAY CAUSE DROWSINESS. DO NOT DRINK ALCOHOL WHILE TAKING THIS MEDICATION. 11) DICLOFENAC NA 1% TOP GEL APPLY 4 GM TO AFFECTED ACTIVE AREA(S) FOUR TIMES A DAY NEEDED FOR PAIN DO NOT EXCEED MORE THAN 16 GRAMS DAILY TO ANY LOWER EXTREMITY JOINT. NOT MORE THAN 8 GRAMS DAILY TO ANY UPPER EXTREMITY JOINT. MAX 32GM/DAY OVER ALL JOINTS. (MEASURE DOSE WITH RULER ATTACHED INSIDE BOX) 12) DONEPEZIL HCL 10MG TAB TAKE ONE TABLET BY MOUTH AT ACTIVE BEDTIME FOR ALZHEIMER DISEASE (JUST BEFORE BEDTIME) 13) EMPAGLIFLOZIN 25MG TAB TAKE ONE-HALF TABLET BY MOUTH ACTIVE ONCE A DAY 14) IRBESARTAN 75MG TAB TAKE ONE TABLET BY MOUTH ONCE A ACTIVE DAY NOTE: DOSE DECREASE 15) ISOSORBIDE MONONITRATE 30MG SA TAB TAKE ONE TABLET BY ACTIVE MOUTH ONCE A DAY FOR CHEST PAIN TAKE ON EMPTY STOMACH. SWALLOW WHOLE. DO NOT CRUSH OR CHEW. 16) METFORMIN HCL 1000MG TAB TAKE ONE TABLET BY MOUTH ACTIVE ONCE A DAY FOR DIABETES TAKE WITH FOOD. AVOID ALCOHOL. DISCONTINUE BEFORE GETTING XRAY DYE. 17) METOPROLOL SUCCINATE 100MG SA TAB TAKE ONE-HALF ACTIVE TABLET BY MOUTH ONCE A DAY FOR HIGH BLOOD PRESSURE SWALLOW WHOLE, DO NOT CRUSH OR CHEW (TABLETS MAY BE CUT IN HALF). 18) OMEPRAZOLE 40MG EC CAP TAKE ONE CAPSULE BY MOUTH ACTIVE EVERY MORNING BEFORE A MEAL TAKE 30 MINUTES PRIOR TO FOOD. 19) TAMSULOSIN HCL 0.4MG CAP TAKE TWO CAPSULES BY MOUTH ACTIVE (S) EVERY EVENING FOR BENIGN PROSTATIC HYPERPLASIA APPROXIMATELY 30 MINUTES AFTER THE SAME MEAL EACH DAY ========= LABS WBC 9.4 10*3/uL 03/01/2024 12:51 RBC 4.90 10*6/uL 03/01/2024 12:51 HGB 15.7 g/dL 03/01/2024 12:51 HCT 49.2 H % 03/01/2024 12:51 MCV 100.4 H fL 03/01/2024 12:51 MCH 32.0 pg 03/01/2024 12:51 MCHC 31.9 L g/dL 03/01/2024 12:51 RDW 12.2 % 03/01/2024 12:51 PLT 414 H 10*3/uL 03/01/2024 12:51 MPV 9.5 fL 03/01/2024 12:51 NEUTROPHILS, AUTO % 71 % 03/01/2024 12:51 LYMPHOCYTES, AUTO % 21 % 03/01/2024 12:51 MONOCYTES, AUTO % 6 % 03/01/2024 12:51 EOSINOPHILS, AUTO % 2 % 03/01/2024 12:51 BASOPHILS, AUTO % 1 % 03/01/2024 12:51 NEUTROPHILS, ABSOLUTE 6.65 10*3/uL 03/01/2024 12:51 LYMPHOCYTES, ABSOLUTE 1.98 10*3/uL 03/01/2024 12:51 MONOCYTES, ABSOLUTE 0.57 10*3/uL 03/01/2024 12:51 EOSINOPHILS, ABSOLUTE 0.14 10*3/uL 03/01/2024 12:51 BASOPHILS, ABSOLUTE 0.06 10*3/uL 03/01/2024 12:51 INR VALUE 1.1 INR 03/01/2024 12:51 PROTIME 12.7 H sec 03/01/2024 12:51 No PTT EO data found SODIUM 140 mEq/L 03/01/2024 12:51 POTASSIUM 4.4 mEq/L 03/01/2024 12:51 CHLORIDE 106 mEq/L 03/01/2024 12:51 UREA NITROGEN 14.6 mg/dL 03/01/2024 12:51 CREATININE 1.37 H mg/dL 03/01/2024 12:51 CALCIUM 9.9 mg/dL 03/01/2024 12:51 PROTEIN 7.9 g/dL 03/01/2024 12:51 ALBUMIN 3.9 g/dL 03/01/2024 12:51 ALKALINE PHOSPHATASE 197 H U/L 03/01/2024 12:51 ALT/SGPT 51 H U/L 03/01/2024 12:51 AST/SGOT 21 U/L 03/01/2024 12:51 TOTAL BILIRUBIN 0.5 mg/dL 03/01/2024 12:51 CARBON DIOXIDE 24 mEq/L 03/01/2024 12:51 GLUCOSE 179 H mg/dL 03/01/2024 12:51 EGFR (CKD-EPI 2020) 52.2 03/01/2024 12:51 HGA1C 6.6 H % 09/24/2023 13:00 No URINE DRUG SCREEN EO data found No HIV SCREENING EO data found [facility] Hep C tests in last five years. *No Lab Data Found* ========= DIAGNOSTICS EKFeb000.2 Ventricular Rate: 66 BPM 52449.3 Atrial Rate: 66 BPM 28173.4 P-R Interval: 258 ms 57391.5 QRS Duration: 86 ms 00569.6 Q-T Interval: 404 ms 65174 QTC Calculation(Bazett)423 ms 78995.12 Calculated P [place]: -4 degrees 97121.13 Calculated R [place]: 66 degrees 39159.14 Calculated T [place]: 20 degrees Sinus rhythm with 1st degree A-V block Otherwise normal ECG When compared with ECG of 06-JUN-2023 11:41, No significant change was found CXR: Impression for CHEST X-RAY, 2 VIEWS, 03/01/24, case [id number] No acute pulmonary infiltrate. ========= PROBLEM LIST 1) Coronary artery disease 2) Hyperlipidemia 3) Benign essential hypertension 4) Diabetic neuropathy with neurologic complication 5) Abdominal aortic aneurysm 6) Gastroesophageal reflux disease 7) Knee pain 8) Callous character 9) Colonic fistula ========= REVIEW OF SYSTEMS/PAST MEDICAL HISTORY: ========= RESPIRATORY for: - Recent or current SOB - Sleep apnea - Asthma - COPD CARDIAC for: - Recent chest pain + Hypertension-controlled on meds + Hyperlipidemia + Myocardial infarction-over 10 yrs ago + Coronary artery disease-hx stents, f/b non-VA cards + per pt had ECHO and he thinks EF was around 50% + TAA-f/b non-VA card, per PCP note is at 4.7cm - Heart failure - Valvular disease - Atrial fibrillation/flutter - orthopnea - syncope *Functional capacity: >4 METs: able to walk 2 city blocks or climb flight of stairs PSYCH/CENTRAL NERVOUS for: - Depression - Anxiety - Post-traumatic stress disorder - Cerebral vascular accident - Seizures ENDOCRINE for: + Diabetes-on meds + per CT abd: 1. Hypoattenuating 1 cm left adrenal nodule diagnostic for adrenal adenoma. - Hypothyroid RENAL for: + slight ^creat 1.37 - Chronic kidney disease - Nephrolithiasis GI for: + GERD-on PPI, sxs controlled + colonic-gallbladder fistula - Liver disease - GI bleed VASCULAR/HEMATOLOGY/ONCOLOGY for: + hx skin CA neck-w/removal - Anemia - Thrombocytopenia - Bleeding disorders MUSCULOSKELETAL/SKIN/PERIPHERAL NERVOUS for: + hx L ANA M + L knee pain - Obesity - Arthritis/Degenerative joint disease - Rheumatoid arthritis + Neuropathy /REPRODUCTIVE for: + Prostate hypertrophy HABITS Alcohol: none Tobacco: none Other drugs: none ========= SURGICAL HISTORY: colonoscopy, ANA M, cardiac stent, skin CA removal Previous anesthesia complications: None Family history of anesthesia complications: None PHYSICAL EXAM: Auscultation Finding: Heart Sounds: Regular Rate, Regular Rhythm Breath Sounds: Clear, no wheezes/rales/rhonchi AIRWAY: MP CLASS: I SUBMANDIBULAR SPACE: 3 fingerbreadths RANGE OF MOTION: FULL TEETH: Edentulous - dentures BETA BLOCKERS: metoprolol RECOMMENDATIONS/PLAN: 1. Additional labs/imaging/consults needed for anesthesia team: will contact non-VA cardiology office for ECHO, TAA imaging and if okay to hold Plavix for surgery. 2. The patient may proceed as planned and will be reassessed by Anesthesia AM of surgery. 3. NPO after midnight except for small sips of water with meds. 4. Unless directed by procedural team, take morning medications with a sip of water EXCEPT: hold empagliflozin 3 days prior, 5. Anticoagulation and antithrombotics per procedural team. 6. If patient uses CPAP, they should bring machine with them. Time spent reviewing patient's [place] medical records: 15 min Time spent in consultation with the patient: 30 minutes /leobardo/ RHETT MARTINEZ Physician Armorer Technician, Anesthesiology Signed: 04/12/2024 13:57 Receipt Acknowledged By: 04/15/2024 06:41 /leobardo/ Maya Knight PA-C General Surgery Physician Armorer Technician RHETT PRO [facility] Apr 12, 2024 01:15 PM ANESTHESIOLOGY CONSULT: LOCAL TITLE: ANESTHESIA PREOPERATIVE EVALUATION CONSULT ST[facility] STANDARD TITLE: ANESTHESIOLOGY CONSULT DATE OF NOTE: APR 12, 2024@13:15 ENTRY DATE: APR 12, 2024@13:15:19 AUTHOR: RHETT PRO EXP COSIGNER: URGENCY: STATUS: COMPLETED ANESTHESIA PREOPERATIVE EVALUATION CONSULT STL Has ADDENDA LORETO SEO is a 78 year old MALE ========= Pre-operative diagnosis: colonic-gallbladder fistula Operation proposed: lap noble/poss open/poss colonic fistula takedown on Apr ========= VITALS Age: 78 Weight: 220.2 lb [99.88 kg] (03/26/2024 10:32) Height: 72 in [182.9 cm] (03/26/2024 10:32) BMI: 29.9 Blood pressure: 122/68 (03/26/2024 10:39) Pulse: 86 (03/26/2024 10:32) Temperature: 97.6 F [36.4 C] (03/26/2024 10:32) Respiration: 18 (03/26/2024 10:32) SpO2: 97% (03/26/2024 10:32) Pain: 0 (03/26/2024 10:32) ========= ALLERGIES Patient has answered NKA ========= MEDICATIONS Inpatient: 1) CEFAZOLIN 2GM/BAG INJ,SOLN IVPB Q4H GIVE IN O.R. ON: Apr@07:30 Active Outpatient Medications (including Supplies): Active Outpatient Medications Status ========= 1) ACCU-CHEK GUIDE (GLUCOSE) TEST STRIP USE 1 STRIP FOR ACTIVE BLOOD TEST DIRECTED *METFORMIN ALONE, 50 STRIPS PER YEAR Aug 2) ASPIRIN 81MG EC TAB TAKE ONE TABLET BY MOUTH ONCE A ACTIVE DAY TAKE WITH FOOD. 3) ATORVASTATIN CALCIUM 80MG TAB TAKE ONE TABLET BY ACTIVE (S) MOUTH EVERY EVENING FOR HIGH CHOLESTEROL 4) BUSPIRONE HCL 10MG TAB TAKE ONE-HALF TABLET BY MOUTH ACTIVE (S) ONCE A DAY DO NOT TAKE WITH GRAPEFRUIT JUICE. 5) CARBOXYMETHYLCELLULOSE NA 0.5% OPH SOLN INSTILL 1 ACTIVE DROP IN BOTH EYES FOUR TIMES A DAY NEEDED FOR DRY EYE(S) 6) CETIRIZINE HCL 10MG TAB TAKE ONE TABLET BY MOUTH ONCE ACTIVE A DAY NEEDED FOR ALLERGY SYMPTOMS 7) CHOLECALCIF 50MCG (D3-2,000UNIT) TAB TAKE ONE TABLET ACTIVE BY MOUTH ONCE A DAY FOR VITAMIN D DEFICIENCY 8) CLOPIDOGREL BISULFATE 75MG TAB TAKE ONE TABLET BY ACTIVE MOUTH ONCE A DAY FOR ACUTE CORONARY SYNDROME 9) CYANOCOBALAMIN 1000MCG TAB TAKE ONE TABLET BY MOUTH ACTIVE ONCE A DAY FOR VITAMIN B12 SUPPLEMENTATION 10) CYCLOBENZAPRINE HCL 10MG TAB TAKE ONE TABLET BY MOUTH ACTIVE AT BEDTIME NEEDED FOR MUSCLE SPASM MAY CAUSE DROWSINESS. DO NOT DRINK ALCOHOL WHILE TAKING THIS MEDICATION. 11) DICLOFENAC NA 1% TOP GEL APPLY 4 GM TO AFFECTED ACTIVE AREA(S) FOUR TIMES A DAY NEEDED FOR PAIN DO NOT EXCEED MORE THAN 16 GRAMS DAILY TO ANY LOWER EXTREMITY JOINT. NOT MORE THAN 8 GRAMS DAILY TO ANY UPPER EXTREMITY JOINT. MAX 32GM/DAY OVER ALL JOINTS. (MEASURE DOSE WITH RULER ATTACHED INSIDE BOX) 12) DONEPEZIL HCL 10MG TAB TAKE ONE TABLET BY MOUTH AT ACTIVE BEDTIME FOR ALZHEIMER DISEASE (JUST BEFORE BEDTIME) 13) EMPAGLIFLOZIN 25MG TAB TAKE ONE-HALF TABLET BY MOUTH ACTIVE ONCE A DAY 14) IRBESARTAN 75MG TAB TAKE ONE TABLET BY MOUTH ONCE A ACTIVE DAY NOTE: DOSE DECREASE 15) ISOSORBIDE MONONITRATE 30MG SA TAB TAKE ONE TABLET BY ACTIVE MOUTH ONCE A DAY FOR CHEST PAIN TAKE ON EMPTY STOMACH. SWALLOW WHOLE. DO NOT CRUSH OR CHEW. 16) METFORMIN HCL 1000MG TAB TAKE ONE TABLET BY MOUTH ACTIVE ONCE A DAY FOR DIABETES TAKE WITH FOOD. AVOID ALCOHOL. DISCONTINUE BEFORE GETTING XRAY DYE. 17) METOPROLOL SUCCINATE 100MG SA TAB TAKE ONE-HALF ACTIVE TABLET BY MOUTH ONCE A DAY FOR HIGH BLOOD PRESSURE SWALLOW WHOLE, DO NOT CRUSH OR CHEW (TABLETS MAY BE CUT IN HALF). 18) OMEPRAZOLE 40MG EC CAP TAKE ONE CAPSULE BY MOUTH ACTIVE EVERY MORNING BEFORE A MEAL TAKE 30 MINUTES PRIOR TO FOOD. 19) TAMSULOSIN HCL 0.4MG CAP TAKE TWO CAPSULES BY MOUTH ACTIVE (S) EVERY EVENING FOR BENIGN PROSTATIC HYPERPLASIA APPROXIMATELY 30 MINUTES AFTER THE SAME MEAL EACH DAY ========= LABS WBC 9.4 10*3/uL 03/01/2024 12:51 RBC 4.90 10*6/uL 03/01/2024 12:51 HGB 15.7 g/dL 03/01/2024 12:51 HCT 49.2 H % 03/01/2024 12:51 MCV 100.4 H fL 03/01/2024 12:51 MCH 32.0 pg 03/01/2024 12:51 MCHC 31.9 L g/dL 03/01/2024 12:51 RDW 12.2 % 03/01/2024 12:51 PLT 414 H 10*3/uL 03/01/2024 12:51 MPV 9.5 fL 03/01/2024 12:51 NEUTROPHILS, AUTO % 71 % 03/01/2024 12:51 LYMPHOCYTES, AUTO % 21 % 03/01/2024 12:51 MONOCYTES, AUTO % 6 % 03/01/2024 12:51 EOSINOPHILS, AUTO % 2 % 03/01/2024 12:51 BASOPHILS, AUTO % 1 % 03/01/2024 12:51 NEUTROPHILS, ABSOLUTE 6.65 10*3/uL 03/01/2024 12:51 LYMPHOCYTES, ABSOLUTE 1.98 10*3/uL 03/01/2024 12:51 MONOCYTES, ABSOLUTE 0.57 10*3/uL 03/01/2024 12:51 EOSINOPHILS, ABSOLUTE 0.14 10*3/uL 03/01/2024 12:51 BASOPHILS, ABSOLUTE 0.06 10*3/uL 03/01/2024 12:51 INR VALUE 1.1 INR 03/01/2024 12:51 PROTIME 12.7 H sec 03/01/2024 12:51 No PTT EO data found SODIUM 140 mEq/L 03/01/2024 12:51 POTASSIUM 4.4 mEq/L 03/01/2024 12:51 CHLORIDE 106 mEq/L 03/01/2024 12:51 UREA NITROGEN 14.6 mg/dL 03/01/2024 12:51 CREATININE 1.37 H mg/dL 03/01/2024 12:51 CALCIUM 9.9 mg/dL 03/01/2024 12:51 PROTEIN 7.9 g/dL 03/01/2024 12:51 ALBUMIN 3.9 g/dL 03/01/2024 12:51 ALKALINE PHOSPHATASE 197 H U/L 03/01/2024 12:51 ALT/SGPT 51 H U/L 03/01/2024 12:51 AST/SGOT 21 U/L 03/01/2024 12:51 TOTAL BILIRUBIN 0.5 mg/dL 03/01/2024 12:51 CARBON DIOXIDE 24 mEq/L 03/01/2024 12:51 GLUCOSE 179 H mg/dL 03/01/2024 12:51 EGFR (CKD-EPI 2020) 52.2 03/01/2024 12:51 HGA1C 6.6 H % 09/24/2023 13:00 No URINE DRUG SCREEN EO data found No HIV SCREENING EO data found [facility] Hep C tests in last five years. *No Lab Data Found* ========= DIAGNOSTICS EKFeb 92179.2 Ventricular Rate: 66 BPM 04273.3 Atrial Rate: 66 BPM 19187.4 P-R Interval: 258 ms 02392.5 QRS Duration: 86 ms 12076.6 Q-T Interval: 404 ms 47915 QTC Calculation(Bazett)423 ms 87337.12 Calculated P [place]: -4 degrees 14024.13 Calculated R [place]: 66 degrees 86887.14 Calculated T [place]: 20 degrees Sinus rhythm with 1st degree A-V block Otherwise normal ECG When compared with ECG of 06-JUN-2023 11:41, No significant change was found CXR: Impression for CHEST X-RAY, 2 VIEWS, 03/01/24, case [id number] No acute pulmonary infiltrate. ========= PROBLEM LIST 1) Coronary artery disease 2) Hyperlipidemia 3) Benign essential hypertension 4) Diabetic neuropathy with neurologic complication 5) Abdominal aortic aneurysm 6) Gastroesophageal reflux disease 7) Knee pain 8) Callous character 9) Colonic fistula ========= REVIEW OF SYSTEMS/PAST MEDICAL HISTORY: ========= RESPIRATORY for: - Recent or current SOB - Sleep apnea - Asthma - COPD CARDIAC for: - Recent chest pain + Hypertension-controlled on meds + Hyperlipidemia + Myocardial infarction-over 10 yrs ago + Coronary artery disease-hx stents, f/b non-VA cards + per pt had ECHO and he thinks EF was around 50% + TAA-f/b non-VA card, per PCP note is at 4.7cm - Heart failure - Valvular disease - Atrial fibrillation/flutter - orthopnea - syncope *Functional capacity: >4 METs: able to walk 2 city blocks or climb flight of stairs PSYCH/CENTRAL NERVOUS for: - Depression - Anxiety - Post-traumatic stress disorder - Cerebral vascular accident - Seizures ENDOCRINE for: + Diabetes-on meds + per CT abd: 1. Hypoattenuating 1 cm left adrenal nodule diagnostic for adrenal adenoma. - Hypothyroid RENAL for: + slight ^creat 1.37 - Chronic kidney disease - Nephrolithiasis GI for: + GERD-on PPI, sxs controlled + colonic-gallbladder fistula - Liver disease - GI bleed VASCULAR/HEMATOLOGY/ONCOLOGY for: + hx skin CA neck-w/removal - Anemia - Thrombocytopenia - Bleeding disorders MUSCULOSKELETAL/SKIN/PERIPHERAL NERVOUS for: + hx L ANA M + L knee pain - Obesity - Arthritis/Degenerative joint disease - Rheumatoid arthritis + Neuropathy /REPRODUCTIVE for: + Prostate hypertrophy HABITS Alcohol: none Tobacco: none Other drugs: none ========= SURGICAL HISTORY: colonoscopy, ANA M, cardiac stent, skin CA removal Previous anesthesia complications: None Family history of anesthesia complications: None PHYSICAL EXAM: Auscultation Finding: Heart Sounds: Regular Rate, Regular Rhythm Breath Sounds: Clear, no wheezes/rales/rhonchi AIRWAY: MP CLASS: I SUBMANDIBULAR SPACE: 3 fingerbreadths RANGE OF MOTION: FULL TEETH: Edentulous - dentures BETA BLOCKERS: metoprolol RECOMMENDATIONS/PLAN: 1. Additional labs/imaging/consults needed for anesthesia team: will contact non-VA cardiology office for ECHO, TAA imaging and if okay to hold Plavix for surgery. 2. The patient may proceed as planned and will be reassessed by Anesthesia AM of surgery. 3. NPO after midnight except for small sips of water with meds. 4. Unless directed by procedural team, take morning medications with a sip of water EXCEPT: hold empagliflozin 3 days prior, 5. Anticoagulation and antithrombotics per procedural team. 6. If patient uses CPAP, they should bring machine with them. Time spent reviewing patient's [place] medical records: 15 min Time spent in consultation with the patient: 30 minutes /leobardo/ RHETT MARTINEZ Physician Armorer Technician, Anesthesiology Signed: 04/12/2024 13:57 Receipt Acknowledged By: 04/15/2024 06:41 /leobardo/ Maya Knight PA-C General Surgery Physician Armorer Technician * AWAITING SIGNATURE * WINSOME SEGURA 04/12/2024 ADDENDUM STATUS: COMPLETED Received fax from pts non-[place] cardiology office: [facility], Dr. Coffey A letter dated 04-01-2024 states that pt is considered moderate but acceptable surgical risk for intended procedure and may proceed, also pt okay to hold Plavix for 5 days for surgery. ECHO: 02-26-2024 Summary: Left ventricle: The cavity size was normal. Wall thickness was increased in a pattern of mild LVH. Global systolic function is normal. The left ventricular ejection fraction is 60%. Diastolic function assessment consistent with abnormal left ventricular relaxation (grade 1 diastolic dysfunction). Aortic valve: mild regurgitation Aortic root: The sinus of Valsalva is dilated, measuring 4.2 cm Ascending aorta: The vessel is dilated, measuring 4.8 cm Mitral valve: mild regurgitation Left atrium: The atrium is normal in size Right ventricle: the cavity size is normal. Systolic function is normal Tricuspid valve: mild regurgitation Pulmonic valve: mild regurgitation Pulmonary arteries: The peak systolic pressure is 21mmHg CT Chest/ABD/pelvis: 06-05-2023 Impression: Stable caliber of ascending thoracic aortic aneurysm. 4.6cm The pt may proceed as planned and will have surg team reach out to pt to instruct him on holding of Plavix. /leoabrdo/ RHETT PRO PAC Physician Armorer Technician, Anesthesiology Signed: 04/12/2024 15:08 Receipt Acknowledged By: * AWAITING SIGNATURE * MAYA KNIGHT * AWAITING SIGNATURE * WINSOME SEGURA REBECCA F [facility]
--- OUTSIDE RECORDS SUMMARY | 2025-01-21 12:59 | XMS_ITS | Encounter Summary ---
Author Name [facility] [place] Organization [facility] [place] Address [address] [place] [address] Care Team Providers Care Repairer Handtools Name Role Phone KARON GARCIA Primary Care Provider KENIA Mccabe Primary Care Provider UnavailSTEVEN Helms Primary Care Provider Haseeb brizuela Insurance Providers: All historical and current [...] B EXC) MAXIMO PALMA Jul 22, 2023 [id number] GABBIRUSSELL PATIENT [employer] PREFERRED PROVIDER ORGANIZAT ION (PPO) MAXIMO PALMA Apr 22, 2023 [id number] [phone] RUSSELL SEO PATIENT [employer] PREFERRED PROVIDER ORGANIZAT ION (PPO) MAXIMO PALMA Jun 23, 2014 [id number] GABBI,RUSSELL MARTEL PATIENT AETNA PHARMACY PRESCRIPT ION NONE Feb 11, 2017 NONE [id number] RUSSELL SEO PATIENT [employer] PHARMACY PRESCRIPT ION NONE Feb 11, 2017 NONE [id number] RUSSELL SEO PATIENT [employer] RX PRESCRIPT ION RX PLAN Jun 23, 2021 [id number] RUSSELL SEO PATIENT [employer] RX PRESCRIPT ION RX PLAN Jun 23, 2021 [id number] RUSSELL SEO PATIENT [employer] RX PRESCRIPT ION FEHBP Jun 23, 2014 [id number] [phone] RUSSELL SEO PATIENT AETNA [facility] PREFERRED PROVIDER ORGANIZAT ION (PPO) MAXIMO PALMA Jun 23, 2014 [id number] RUSSELL SEO PATIENT MEDICARE (WNR) MEDICARE (M) PART B May 23, 2008 PART B [id number] [phone] RUSSELL SEO PATIENT MEDICARE (WNR) MEDICARE (M) PART B May 23, 2008 PART B [id number] [phone] RUSSELL SEO PATIENT MEDICARE (WNR) MEDICARE (M) PART A Apr 23, 2008 PART A [id number] RUSSELL SEO PATIENT MEDICARE (WNR) MEDICARE (M) PART A Apr 23, 2008 PART A [id number] [phone] RUSSELL SEO PATIENT MEDICARE (WNR) MEDICARE () PART A Apr 23, 2008 PART A [id number] [phone] RUSSELL SEO PATIENT MEDICARE (WNR) MEDICARE (M) PART B Apr 23, 2008 PART B [id number] [phone] RUSSELL SEO PATIENT Selected Encounter This section includes the information on record at [place] for the Encounter. Date/Time Encounter Type Encounter Description Reason Pro vider Source Dec 27, 2024 02:22 PM Outpatient Encounter COMMUNITY CARE CONSULT IHE Encounter Template Text not used by [facility] Plan of Treatment: Future Appointments (+ 6 months) and Future Tests (+/- 45 days) The Plan of Treatment section includes future care activities for the patient from [facility] [place] [facility] This section includes future appointments and future orders which are active, pending or scheduled. Future Appointments This section includes appointments that were scheduled to occur 6 months from the date of the Encounter, up to a maximum of 20 appointments. The data comes from all [facility]. Appointment Date/Time Appointment Type Appointme nt Facility Name Jan 07, 2025 08:00 AM AMBULATORY - NONE [facility] Feb 17, 2025 01:00 PM AMBULATORY - SURGERY [facility] Mar 24, 2025 02:30 PM AMBULATORY - MEDICINE [facility] Active, Pending, and Scheduled Orders This section includes a listing of several types of active, pending, and scheduled orders, including clinic medications orders, diagnostic test orders, procedure orders and consult orders; where the start date of the order is 45 days before the date of the Encounter or 45 days after the date of theEncounter. The data comes from all [facility]. Test Date/Time Test Type Test Details Facility Name Dec 14, 2024 01:30 PM Consult Order COMMUNITY CARE-[facility]ILL[facility] Cons Commercial Director's [facility] Jan 13, 2025 11:32 AM Consult Order PROSTHETIC S REQUEST - COMMUNITY CARE ST Cons Commercial Director's [facility] Vital Signs: All taken on the encounter date This section contains inpatient and outpatient Vital Signs collected on the date of the Encounter. Date/Time Temperature Pulse Blood Pressure Respiratory Rate SP02 Pain Height Weight Body Mass Index Source Dec 27, 2024 10:01 AM 97.2 F 70 /min 103/60 mm[Hg] 16 /min 96 % 0 230 lb 31 [facility] Advance Directives: All historical and current Section Date Range: From patient's date of to the date document was created. This section includes ALL of a patient's completed or amended [place] Advance and Rescinded Directives. The entries below indicate that a directive exists for the patient, but an actual copy is not included with this document. The data comes from all [facility]. Date Advance Directives Provider Source Jan 14, 2022 ADVANCE DIRECTIVE DISCUSSION [facility] Encounter Notes: All associated encounter notes This section contains the clinical notes associated to the Encounter. Date/Time Encounter Note(s) Provider Source Dec 27, 2024 02:22 PM NONVA NOTE: LOCAL TITLE: COMMUNITY CARE-CARE COORDINATION PLAN NOTE [address] STAND[address] TITLE: NONVA NOTE DATE OF NOTE: DEC 27, 2024@14:22 ENTRY DATE: DEC 27, 2024@14:22:07 AUTHOR: GAMA HIGGINS COSIGNER: URGENCY: STATUS: COMPLETED THE PATIENT HAS BEEN REFERRED TO THE FOLLOWING SERVICES HOME CARE SERVICES: Community skilled home health care SN, PT - in accordance with [place] Standardized Episode of Care (SEOC) Planned R TKA 01/05/25 HOME CARE SERVICE FUNDING: [place]: [facility] NAME OF AGENCY TO PROVIDE CARE: [address] [place] [address] DURATION OF CARE (Non-Hospice Services): 120 DAYS OR WHENEVER PATIENT GOALS ARE MET, WHICHEVER COMES FIRST Date service is projected to start: 01/07/25 ([facility] consults terminate automatically after 120 days) *Please send all correspondence/orders to be signed to: Provider name: Gena Merino MD Phone number: [phone] Fax number: [phone] PLAN: New Services-Transition to Skilled Home Health Services. Helpful phone numbers: [facility] [employer] [facility] Email: [email or web address] GAMA HIGGINS RN Patient Care Service, Care in the Community Unit Signed: 12/27/2024 14:33 GAMA HIGGINS [facility]
--- OUTSIDE RECORDS SUMMARY | 2025-01-21 13:00 | XMS_ITS ---
Author Name [facility] [place] [facility] [place] [facility] [facility] [place] Address [address] [place] [address] Care Team Providers Care Mine Expert Name Role Phone KARON GARCIA Primary Care [...] B EXC) MAXIMO PALMA Jul 22, 2023 [id number] [phone] GABBIRUSSELL PATIENT [employer] PREFERRED PROVIDER ORGANIZAT ION (PPO) MAXIMO PALMA Apr 22, 2023 [id number] [phone] GABBIRUSSELL MARTEL PATIENT [employer] PREFERRED PROVIDER ORGANIZAT ION (PPO) MAXIMO PALMA Jun 23, 2014 [id number] [phone] GABBIRUSSELL RUSHTrudy PATIENT [employer]ETNA PHARMACY PRESCRIPT ION NONE Feb 11, 2017 NONE [phone] RUSSELL SEO PATIENT [employer] PHARMACY PRESCRIPT ION NONE Feb 11, 2017 NONE [id number] RUSSELL SEO PATIENT [employer]ET[employer] RX PRESCRIPT ION RX PLAN Jun 23, 2021 [id number] RUSSELL SEO PATIENT [employer]ETNA RX PRESCRIPT ION RX PLAN Jun 23, 2021 [id number] RUSSELL SEO PATIENT [employer]ETNA RX PRESCRIPT ION FEHBP Jun 23, 2014 [id number] RUSSELL SEO PATIENT AETNA [facility] PREFERRED PROVIDER ORGANIZAT ION (PPO) MAXIMO PALMA Jun 23, 2014 [id number] RUSSELL SEO PATIENT MEDICARE (WN) MEDICARE () PART B May 23, 2008 PART B [id number] [phone] RUSSLEL SEO PATIENT MEDICARE (WNR) MEDICARE () PART B May 23, 2008 PART B [id number] RUSSELL SEOD PATIENT MEDICARE (WNR) MEDICARE () PART A Apr 23, 2008 PART A [id number] RUSSELL SEOD PATIENT MEDICARE (WNR) MEDICARE () PART A Apr 23, 2008 PART A [id number] RUSSELL SEO PATIENT MEDICARE (WNR) MEDICARE () PART A Apr 23, 2008 PART A [id number] [phone] RUSSELL SEOD PATIENT MEDICARE (WNR) MEDICARE () PART B Apr 23, 2008 PART B [id number] [phone] RUSSELL SEO PATIENT Selected Encounter This section includes the information on record at [place] for the Encounter. Date/Time Encounter Type Encounter Description Reason Provider Source Oct 18, 2024 10:30 AM EDU&TRN PT SELF-MGMT NQHP 1 [facility] ICD-10-CM Z72.3 Lack of physical exercise JOSE ANGEL [employer] Encounter Template Text not used by [place] Assessments - Encounter Diagnoses This section includes the primary and secondary diagnoses documented for the Encounter. Date/Time Primary/Secondary Diagnosis Diagnosis Name Provider Source November 04, 2024 10:03 AM PRIMARY Lack of physical exercise MI WINTER [facility] Plan of Treatment: Future Appointments (+ 6 months) and Future Tests (+/- 45 days) The Plan of Treatment section includes future care activities for the patient from all [place] treatmentfacilities. This section includes future appointments and future orders which are active, pending or scheduled. Future Appointments This section includes appointments that were scheduled to occur 6 months from the date of the Encounter, up to a maximum of 20 appointments. The data comes from all [place] treatment facilities. Appointment Date/Time Appointment Type Appointme nt Facility Name November 09, 2024 01:30 PM AMBULATORY - SURGERY . [facility] Dec 07, 2024 11:00 AM AMBULATORY - MEDICINE [facility] Dec 27, 2024 10:30 AM AMBULATORY - MEDICINE [facility] Jan 07, 2025 08:00 AM AMBULATORY - NONE [facility] Feb 17, 2025 01:00 PM AMBULATORY - SURGERY [facility] Mar 24, 2025 02:30 PM AMBULATORY - MEDICINE [facility] Lab Results: +/- 30 days of the encounter This section includes the Chemistry and Hematology Lab Results on record with [place] for the patient. Radiology Reports and Pathology Reports are provided separately, in subsequent sections. Lab Results This section contains the Chemistry/Hematology Results that were resulted 30 days before or 30 daysafter the date of the Encounter. Date/Time Source Result Type Result - Unit Interpretation Reference Range Specimen Type Comment Sep 22, 2024 11:30 AM [facility] MAGNESIUM PLASMA Specimen Type: PLASMA Comment: No hemolysis noted. Ordering Provider: STEVEN SCHMIDT Report Released Date/Time: Sep 20, 2024 04:29 PM Reporting Lab: [facility] [address] [facility] [phone] Performing Lab: [facility] [address] [place] [address] MAGNESIUM 1.7 mg/dL 1.6-2.6 Sep 22, 2024 11:30 AM [facility] LIPID PANEL (STL) PLASMA Specimen Type : PLASMA Comment: No hemolysis noted. Ordering Provider: STEVEN SCHMIDT Report Released Date/Time: Sep 20, 2024 04:29 PM Reporting Lab: [facility] [address] [place] [phone] Performing Lab: [address] [address] CHOLESTEROL 185 mg/dL 0-200 TRIGLYCERIDE 171 mg/dL H 0-150 CALCULATED LDL 115 mg/dL HDL(New) 36 mg/dL L >40 Sep 22, 2024 11:30 AM [facility] HGA1C BLOOD Specimen Type: BLOOD No comment entered. Ordering Provider: STEVEN SCHMIDT Report Released Date/Time: Sep 20, 2024 04:29 PM Reporting Lab: [address] [address] Performing Lab: [address] [address] HGA1C 7.4 H 4.0-6.0 Sep 22, 2024 11:30 AM [facility] COMPREHENSIVE METABOLIC PANEL PLASMA S pecimen Type: PLASMA Comment: No hemolysis noted. Ordering Provider: STEVEN SCHMIDT Report Released Date/Time: Sep 20, 2024 04:29 PM Reporting Lab: [address] [address] Performing Lab: [address] [address] CREATININE 1.01 mg/dL 0.7-1.3 UREA NITROGEN 15.7 mg/dL 9.0-25.0 GLUCOSE 217 mg/dL H 72-99 SODIUM 136 meq/L 136-145 POTASSIUM 4.2 meq/L 3.5-5 CHLORIDE 107 meq/L 98-107 CARBON DIOXIDE 23 meq/L 22-31 CALCIUM 9.1 mg/dL 8.4-10.4 PROTEIN 6.5 g/dL 6-8.6 ALBUMIN 3.5 g/dL 3.4-5 TOTAL BILIRUBIN 0.6 mg/dL 0.2-1.2 ALKALINE PHOSPHATASE 146 U/L 40-150 AST/SGOT 16 U/L 5-34 ALT/SGPT 16 U/L 8-40 EGFR (CKD-EPI 2020) 74.7 >60 Sep 22, 2024 11:30 AM [facility] TSH W/ REFLEX FT4 (STL) PLASMA Specime n Type: PLASMA No comment entered. Ordering Provider: STEVEN SCHMIDT Report Released Date/Time: Sep 20, 2024 04:29 PM Reporting Lab: [address] [address] Performing Lab: [address] [address] TSH 2.029 u[IU]/mL 0.47-5 Sep 22, 2024 11:30 AM [facility] B12 SERUM Specimen Type: SERUM No comment entered. Ordering Provider: STEVEN SCHMIDT Report Released Date/Time: Sep 20, 2024 04:29 PM Reporting Lab: [place] [address] [facility] [address] Performing Lab: [place] [address] [facility] [address] B12 548 pg/mL 213-816 Sep 22, 2024 11:30 AM [facility] BLOOD Specimen Type: BLOOD No comment entered. Ordering Provider: STEVEN SCHMIDT Report Released Date/Time: Sep 20, 2024 04:29 PM Reporting Lab: [place] [address] [facility] [address] Performing Lab: [address] [address] WBC 5.0 10*3/uL 3.6-11.2 RBC 4.54 10*6/uL 4.10-5.70 HGB 14.7 g/dL 13.1-16.8 HCT 43.5 38.2-48.4 MCV 95.8 fL 80.0-100.0 MCH 32.4 pg 27.0-34.0 MCHC 33.8 g/dL 33.0-36.0 PLT 242 10*3/uL 150-400 MPV 10.5 fL 7.5-11.2 RDW 12.1 11.8-15.1 LYMPHOCYTES, AUTO % 32 MONOCYTES, AUTO % 7 NEUTROPHILS, AUTO % 58 EOSINOPHILS, AUTO % 3 BASOPHILS, AUTO % 1 LYMPHOCYTES, ABSOLUTE 1.60 10*3/uL 0.77- 4.50 MONOCYTES, ABSOLUTE 0.35 10*3/uL 0.19-0. 80 NEUTROPHILS, ABSOLUTE 2.87 10*3/uL 2.10- 8.00 EOSINOPHILS, ABSOLUTE 0.13 10*3/uL 0.00- 0.60 BASOPHILS, ABSOLUTE 0.03 10*3/uL 0.00-0. 20 Sep 22, 2024 11:30 AM [facility] VITAMIN D, 25-HYDROXY SERUM Specimen Type: SERUM No comment entered. Ordering Provider: STEVEN SCHMIDT Report Released Date/Time: Sep 20, 2024 04:29 PM Reporting Lab: [facility] [address] [place] [phone] Performing Lab: [address] [address] VITAMIN D, 25-HYDROXY 23.7 ng/mL L 30-96 Sep 22, 2024 11:30 AM [facility] MICRAL/CREAT PROFILE (STL) URINE Spec imen Type: URINE No comment entered. Ordering Provider: STEVEN SCHMIDT Report Released Date/Time: Sep 20, 2024 04:29 PM Reporting Lab: [facility] [address] [place] [phone] Performing Lab: [facility] [address] [place] [phone] URINE ALBUMIN (PB-STL) 7.6 mg/L uACR (STL) 5 mg/g 0-29 CREATININE URINE/OTHERS 158.4 mg/dL 63-1 66 Advance Directives: All historical and current Section Date Range: From patient's date of to the date document was created. This section includes ALL of a patient's completed or amended [place] Advance and Rescinded Directives. The entries below indicate that a directive exists for the patient, but an actual copy is not included with this document. The data comes from all [place] facilities. Date Advance Directives Provider Source Jan 14, 2022 ADVANCE DIRECTIVE DISCUSSION SHEA WINTER [facility] Radiology Reports: +/- 30 days of the encounter Radiology Reports For cases when an order for radiology services may have been completed prior to the date of the Encounter, the report list includes the Radiology Reports that were completed up to 30 days before dateof the Encounter. For cases when an order for radiology services may have been completed after the date of the Encounter, the report list also includes the Radiology Reports that were completed up to30 days after date of the Encounter. The data comes from all [place] treatment facilities. Date/Time Radiology Report Provider Source Sep 28, 2024 10:22 AM KNEE,RIGHT 3 VIEWS: LORETO SEO [id number] -[id number] M Exm Date: SEP 28, 2024@10:22 Req Phys: STEVEN SCHMIDT Loc: [facility] 3 PCP (Req'g Loc) [facility] Service: Unknown [address] [address] (Case [id number] COMPLETE) KNEE,RIGHT 3 VIEWS (RAD Detailed) CPT:72685 Proc Modifiers : RIGHT, LATERAL, Stand AP, Kinde Reason for Study: B knee pain Clinical History: Report Status: Verified Date Reported: SEP 29, 2024 Date Verified: SEP 29, 2024 Surveillance Officer E-Sig:/ES/ROBERTO RAWLS MD Report: 3 views COMPARISON: None No acute fracture or dislocation 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 Other: Popcorn like calcification in the central distal femur typical of enchondroma. Probable intra-articular loose bodies Impression: Tricompartmental osteoarthritis Primary Interpreting Staff: ROBERTO RAWLS MD, Radiologist (Surveillance Officer) /ROBERTO RAIN [facility] Sep 28, 2024 10:22 AM KNEE,LEFT, 3 VIEWS: LORETO SEO [id number] -[id number] M Exm Date: SEP 28, 2024@10:22 Req Phys: STEVEN SCHMIDT Loc: [facility] 3 PCP (Req'g Loc) Img Loc: -MAIN RADIOLOGY SUITE Service: Unknown [address] [address] (Case [id number] COMPLETE) KNEE,LEFT, 3 VIEWS (RAD Detailed) CPT:30206 Proc Modifiers : LEFT, LATERAL, Stand AP, Kinde Reason for Study: B knee pain Clinical History: Report Status: Verified Date Reported: SEP 29, 2024 Date Verified: SEP 29, 2024 Surveillance Officer E-Sig:/ES/ROBERTO RAWLS MD Report: 3 views COMPARISON: None No acute fracture or dislocation 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 Other: Large intra-articular loose bodies Impression: Tricompartmental osteoarthritis Primary Interpreting Staff: ROBERTO RAWLS MD, Radiologist (Surveillance Officer) /ROBERTO RAIN [facility] Encounter Notes: All associated encounter notes This section contains the clinical notes associated to the Encounter. Date/Time Encounter Note(s) Provider Source Oct 18, 2024 10:30 AM CARE COORDINATION HOME TELEHEALTH VIDEO VISIT NOTE: LOCAL TITLE: GEROFIT VVC SUPERVISED EXERCISE NOTE [facility] STANDARD TITLE: CARE COORDINATION HOME TELEHEALTH VIDEO VISIT NO DATE OF NOTE: OCT 18, 2024@10:30 ENTRY DATE: OCT 18, 2024@14:35:54 AUTHOR: MI WINTER EXP COSIGNER: URGENCY: STATUS: COMPLETED Gerofit Telehealth Remote Supervised Exercise Note [place] Provided informed consent to receive treatment via Telehealth. [place] mailed and has been made verbally aware of [facility] [place] practices.[place] participated remotely in the Gerofit exercise program today through [employer]. Activities were focused on progression of their individual exercise prescription (cardiorespiratory fitness training, strength training, etc.) and group based exercise sessions to include, but not limited to: flexibility training, balance training & functional circuit training. Exercise class was instructed by Chon Love and Mi Winter observed class for safety monitoring. Any questions/concerns were addressed with the patient. Modifications were made to programming as appropriate to suit Veterans individual needs, preferences, and whole health concerns. Participants were also educated throughout class on proper and safe exercise technique, proper strengthening form/speed, RPE goals for different class exercise portions as well as safe balance techniques. All individual questions were fully addressed during class for other participants knowledge. Total Duration (minutes) for session: 90 Address: [address] [place] [address] [place] [address] Contact Information: Rosemary [phone] /leobardo/ Mi PATEL System Administrator Signed: 10/18/2024 14:52 MI WINTER [facility]
--- OUTSIDE RECORDS SUMMARY | 2025-01-21 13:00 | XMS_ITS ---
Author Name [facility] [place] [facility] [place] [facility] [place] [facility] [place] Address [address] [place] [address] Care Team Providers Care Parcel Post Delivery Name Role Phone KARON GARCIA Primary Care [...] Member ID Insurance Provider's Telephone Number Policy Sivla's Name Patient's Relationship to Policy Silva AETNA MEDICARE SECONDARY (NO B EXC) MAXIMO PALMA Jul 22, 2023 [id number] GABBI,GE DELONTE PATIENT AETNA PREFERRED PROVIDER ORGANIZAT ION (PPO) MAXIMO PALMA Apr 22, 2023 [id number] [phone] GABBIRUSSELL RUSHTrudy PATIENT AETNA PREFERRED PROVIDER ORGANIZAT ION (PPO) MAXIMO PALMA Jun 23, 2014 [id number] RUSSELL SEOTrudy PATIENT AETNA PHARMACY PRESCRIPT ION NONE Feb 11, 2017 NONE [id number] RUSSELL SEO PATIENT AETNA PHARMACY PRESCRIPT ION NONE Feb 11, 2017 NONE [id number] [phone] RUSSELL SEO PATIENT AETNA RX PRESCRIPT ION RX PLAN Jun 23, 2021 [id number] RUSSELL SEOD PATIENT AETNA RX PRESCRIPT ION RX PLAN Jun 23, 2021 [id number] RUSSELL SEO PATIENT AETNA RX PRESCRIPT ION FEHBP Jun 23, 2014 [id number] RUSSELL SEO PATIENT AETNA [facility] PREFERRED PROVIDER ORGANIZAT ION (PPO) MAXIMO PALMA Jun 23, 2014 [id number] RUSSELL SEO PATIENT MEDICARE (WN) MEDICARE () PART B May 23, 2008 PART B [id number] [id number] RUSSELL SEO PATIENT MEDICARE (WNR) MEDICARE () PART B May 23, 2008 PART B [id number] [phone] RUSSELL SEOD PATIENT MEDICARE (WNR) MEDICARE () PART A Apr 23, 2008 PART A [id number] [phone] RUSSELL SEOD PATIENT MEDICARE (WNR) MEDICARE () PART A Apr 23, 2008 PART A [id number] RUSSELL SEOD PATIENT MEDICARE (WNR) MEDICARE () PART A Apr 23, 2008 PART A [id number] RUSSELL SEOD PATIENT MEDICARE (WNR) MEDICARE () PART B Apr 23, 2008 PART B [id number] [phone] RUSSELL SEO PATIENT Selected Encounter This section includes the information on record at [place] for the Encounter. Date/Time Encounter Type Encounter Description Reason Provider Source May 11, 2024 06:18 AM OFF/OP EST OCTOBER X REQ PHY/QHP GENERAL SURGERY ICD-10-CM K81.1 Chronic cholecystitis MATHIS,LEISA K IHKarel Encounter Template Text not used by [place] Assessments - Encounter Diagnoses This section includes the primary and secondary diagnoses documented for the Encounter. Date/Time Primary/Secondary Diagnosis Diagnosis Name Provider Source May 11, 2024 11:28 AM PRIMARY Chronic cholecystitis TAYLOR MORRISONA [facility] Plan of Treatment: Future Appointments (+ 6 months) and Future Tests (+/- 45 days) The Plan of Treatment section includes future care activities for the patient from all [place] treatmentfacilities. This section includes future appointments and future orders which are active, pending or scheduled. Future Appointments This section includes appointments that were scheduled to occur 6 months from the date of the Encounter, up to a maximum of 20 appointments. The data comes from all [place] treatment facilities. Appointment Date/Time Appointment Type Appointme nt Facility Name May 12, 2024 01:00 PM AMBULATORY - MEDICINE [facility] May 19, 2024 01:30 PM AMBULATORY - SURGERY [facility] May 31, 2024 10:00 AM AMBULATORY - NONE [facility] Aug 18, 2024 11:41 AM AMBULATORY - MEDICINE [facility] Aug 19, 2024 08:30 AM AMBULATORY - NONE [facility] Sep 22, 2024 11:30 AM AMBULATORY - MEDICINE [facility] Lab Results: +/- 30 days of the encounter This section includes the Chemistry and Hematology Lab Results on record with [place] for the patient. Radiology Reports and Pathology Reports are provided separately, in subsequent sections. Lab Results This section contains the Chemistry/Hematology Results that were resulted 30 days before or 30 daysafter the date of the Encounter. Date/Time Source Result Type Result - Unit Interpretation Reference Range Specimen Type Comment May 11, 2024 05:42 AM [facility] GLUCOSE,BLOOD-poct (STL) BLOOD Specimen Type: BLOOD Comment: Test Performed by: [id number] Meter #: [id number] Ordering Provider: DARY MORRISON Report Released Date/Time: May 11, 2024 06:36 AM Reporting Lab: [place] [address] [facility] [address] Performing Lab: [address] [address] GLUCOSE,BLOOD-poct (STL) 154 mg/dL H 72-99 May 11, 2024 12:40 AM [facility] BASIC METABOLIC PANEL PLASMA Specimen Type: PL ASMA Comment: No hemolysis noted. Ordering Provider: EDDIE HAYES Report Released Date/Time: May 10, 2024 11:48 PM Reporting Lab: [address] [address] Performing Lab: [address] [address] CREATININE 1.14 mg/dL 0.7-1.3 UREA NITROGEN 17.3 mg/dL 9.0-25.0 GLUCOSE 236 mg/dL H 72-99 SODIUM 136 meq/L 136-145 POTASSIUM 4.3 meq/L 3.5-5 CHLORIDE 105 meq/L 98-107 CARBON DIOXIDE 21 meq/L L 22-31 CALCIUM 9.2 mg/dL 8.4-10.4 EGFR (CKD-EPI 2020) 64.6 >60 May 11, 2024 12:[address] [facility] CBC BLOOD Specimen Type: BLOOD No comment entered. Ordering Provider: EDDIE HAYES Report Released Date/Time: May 10, 2024 11:48 PM Reporting Lab: [address] [address] Performing Lab: [address] [address] WBC 13.3 10*3/uL H 3.6-11.2 RBC 4.49 [...] 0.00-0. 20 May 10, 2024 08:21 PM [facility] GLUCOSE,BLOOD-poct (STL) BLOOD Specimen Type: BLOOD Comment: Test Performed by: [id number] Meter #: [id number] Ordering Provider: LORELEI MORRISON Report Released Date/Time: May 10, 2024 09:18 PM Reporting Lab: [address] [address] Performing Lab: [address] [address] GLUCOSE,BLOOD-poct (STL) 192 mg/dL H 72May 10, 2024 04:13 PM [facility] GLUCOSE,BLOOD-poct (STL) BLOOD Specimen Type: BLOOD Comment: Test Performed by: [id number] Meter #: [id number] Ordering Provider: LORELEI MORRISON Report Released Date/Time: May 10, 2024 05:13 PM Reporting Lab: [address] [address] Performing Lab: [address] [address] GLUCOSE,BLOOD-poct (STL) 156 mg/dL H 72-99 May 10, 2024 12:47 PM [facility] MRSA SURVL NARES DNA NARES Specimen Type: [...] May 10, 2024 12:47 PM Reporting Lab: [facility] [address] [facility] [address] Performing Lab: [facility] [address] [place] [address] MRSA SURVL NARES DNA Negative Negative May 10, 2024 06:30 AM [facility] GLUCOSE,BLOOD-poct (STL) BLOOD Specimen Type: BLOOD Comment: Test Performed by: [id number] Meter #: [id number] Ordering Provider: BANDAR LONGORIA Report Released Date/Time: May 10, 2024 06:43 AM Reporting Lab: [facility] [address] [facility] [address] Performing Lab: [address] [address] GLUCOSE,BLOOD-poct (STL) 174 mg/dL H 72-99 Vital Signs: All taken on the encounter date This section contains inpatient and outpatient Vital Signs collected on the date of the Encounter. Date/Time Temperature Pulse Blood Pressure Respiratory Rate SP02 Pain Height Weight Body Mass Index Source May 11, 2024 08:58 AM 98.7 67 143/69 20 96 0 [facility] May 11, 2024 05:40 AM 98.1 68 162/78 18 95 0 [facility] May 11, 2024 01:32 AM 99.6 83 157/71 18 99 [facility] May 11, 2024 12:10 AM 3 [facility] Advance Directives: All historical and current Section Date Range: From patient's date of to the date document was created. This section includes ALL of a patient's completed or amended [place] Advance and Rescinded Directives. The entries below indicate that a directive exists for the patient, but an actual copy is not included with this document. The data comes from all [place] facilities. Date Advance Directives Provider Source Jan 14, 2022 ADVANCE DIRECTIVE DISCUSSION SHEA WINTER [facility] Pathology Reports: +/- 30 days of the [...] the Encounter. The data comes from all [place] treatment facilities. Date/Time Pathology Report Provider Source [...] - CHRONIC CHOLECYSTITIS - NEGATIVE FOR MALIGNANCY /es/ CONCETTA GOMEZ Pathologist Signed May 11, 2024@12:18 Performing Laboratory: Surgical Pathology Report Performed By: [address] [id number] [address] [facility] [address] [place] [address] $FTR - - - - - - - - - - - - - - - - - - - - - - - - - - - - - - - - - - - - - - - - (End of report) CONCETTA GOMEZ MD aq Date May 11, 2024 - - - - - - - - - - - - - - - - - - - - - - - - - - - - - - - - - - - - - - - - LORETO SEO STANDARD FORM 515 ID:[id number] SEX:M :1945 AGE: 79 LOC:[facility] PCP: Lorelei Morrison MD /leobardo/ CONCETTA GOMEZ Pathologist Signed: 05/11/2024 12:18 CONCETTA GOMEZ [facility] Encounter Notes: All associated encounter notes This section contains the clinical notes associated to the Encounter. Date/Time Encounter Note(s) Provider Source May 11, 2024 06:18 AM PHYSICIAN EDUCATION DISCHARGE NOTE: LOCAL TITLE: DISCHARGE INSTRUCTIONS [facility] STANDARD TITLE: PHYSICIAN EDUCATION DISCHARGE NOTE DATE OF NOTE: MAY 11, 2024@06:18 ENTRY DATE: MAY 11, 2024@06:18:39 AUTHOR: LORELEI MORRISON EXP COSIGNER: LEISA MATHIS URGENCY: STATUS: COMPLETED ~~~~~~~~~~~DISCHARGE INSTRUCTIONS~~~~~~~~~~~~~~~ MAY 11, 2024 DIAGNOSES: Chronic Cholecystitis PROCEDURES: 2. FUTURE APPOINTMENT(S): *To reschedule [facility] appointments call and use ext [phone] Please follow up with Vascular/General Surgery in clinic, you will be contacted regarding your appointment. date/time clinic phone number 05/31/24 10:00 am [facility] PACT NUTRI IND [phone] 06/10/24 11:00 am JUAN PRASAD IND HARJIT PSI [phone] 06/14/24 11:00 am [facility] PA[facility] PHONE NURSE [phone] 09/22/24 11:30 am [facility] PACT 3 PCP [phone] 02/17/25 1:00 pm [facility]-OPTOMETRY *This listing may be incomplete. Please refer to Appointment Mgmt.listing for any additional patient appointments 3. DISCHARGE MEDICATIONS: Active Outpatient Medications (including Supplies): Active Outpatient Medications Status ========= 1) ACCU-CHEK GUIDE (GLUCOSE) TEST STRIP USE 1 STRIP FOR ACTIVE BLOOD TEST DIRECTED *METFORMIN ALONE, 50 STRIPS PER YEAR Aug 2) ASPIRIN 81MG EC TAB TAKE ONE TABLET BY MOUTH ONCE A ACTIVE DAY TAKE WITH FOOD. 3) ATORVASTATIN CALCIUM 80MG TAB TAKE ONE TABLET BY ACTIVE MOUTH EVERY EVENING FOR HIGH CHOLESTEROL 4) BUSPIRONE HCL 10MG TAB TAKE ONE-HALF TABLET BY MOUTH ACTIVE ONCE A DAY DO NOT TAKE WITH [...] TAB TAKE ONE TABLET BY MOUTH ACTIVE (S) ONCE A DAY FOR VITAMIN B12 SUPPLEMENTATION [...] MINUTES AFTER THE SAME MEAL EACH DAY Pending Outpatient Medications Status ========= 1) ACETAMINOPHEN 500MG TAB TAKE TWO TABLETS BY MOUTH PENDING EVERY 8 HOURS CAUTION: DO NOT EXCEED 4000MG PER DAY ACETAMINOPHEN (APAP) FROM ALL MEDS. 20 Total Medications NEW MEDICATIONS (and indicatons): - Take Tylenol for pain control. Please refer to instructions on the bottle for dosages. - You can apply heating and cooling packs to the surgical site; do not apply these directly to skin and alternate them (on for 15 minutes, off for 45 minutes) so as to not injure the skin. The following changes were made to the medications you were taking prior to this hospitalization: None These medications have been stopped during your hospitalization (and reason why): Aspirin and Clopidogrel; you can restart your Aspirin on 05/11/24 and your Clopidogrel on 05/14/24 At your next appointment, please remember to bring all of your medication bottles with you. Medication Reconciliation: I have discussed active and pending medications with the patient and/or child day care provider. I have made changes as appropriate. 4. DISCHARGE INTRUCTIONAL MATERIALS: - No heavy lifting greater than 10 pounds until cleared by your surgeon at your follow up appointment. - Please call the number below for the surgery clinic or present for evaluation at your nearest hospital if you have any of the following symptoms: high fever >102 that does not respond to tylenol or ibuprofen, inability to keep food or water down, pain not controlled on medications. 5. WOUND MANAGEMENT: OK to shower as usual, wash over your incision sites with soap and water. Redress wound daily and when needed. 6. DISCHARGE DIETARY INSTRUCTIONS: Ok to resume previous diet. 7. DISCHARGE PHYSICAL ACTIVITY INSTRUCTIONS: Please do not lift anything more than 10 pounds until follow up. Youre activity will be limited for several weeks, this will be further discussed in clinic. OK to walk and climb stairs. 8. OTHER (Include employment status): If you need [facility] paperwork signed please contact Stella Perez [phone]. 9. WORSENING and/or DANGEROUS SYMPTOMS TO REPORT If you experience fever, increased pain, spreading redness around your incision sites, nausea, vomiting or purulent drainage from your wounds or shortness of breath please call [phone] or return to the ED. Specialist Information: If you would like to contact unit II surgery, please call Stella Perez during regular business hours at . Follow-up with your Primary Care Physician or Specialist or call [facility] Helpline: [phone] /leobardo/ LORELEI MORRISON MD Signed: 05/11/2024 11:28 /leobardo/ LEISA MATHIS SURGEON Cosigned: 05/18/2024 20:37 LORELEI MORRISON [facility]
--- OUTSIDE RECORDS SUMMARY | 2025-01-21 13:00 | XMS_ITS | Encounter Summary ---
Author Name [facility] [place] Organization [facility] [place] Address [address] [place] [address] Care Team Providers Care Deli Clerk Name Role Phone KARON GARCIA Primary Care [...] B EXC) MAXIMO PALMA Jul 22, 2023 [id number] [phone] GABBIRUSSELL RUSHTrudy PATIENT [employer] PREFERRED PROVIDER ORGANIZAT ION (PPO) MAXIMO PALMA Apr 22, 2023 [id number] [phone] GABBIRUSSELL RUSHTrudy PATIENT [employer] PREFERRED PROVIDER ORGANIZAT ION (PPO) MAXIMO PALMA Jun 23, 2014 [id number] [phone] RUSSELL SEOTrudy PATIENT AETNA PHARMACY PRESCRIPT ION NONE Feb 11, 2017 NONE [phone] RUSSELL SEO PATIENT [employer] PHARMACY PRESCRIPT ION NONE Feb 11, 2017 NONE [id number] RUSSELL SEO PATIENT AETNA RX PRESCRIPT ION RX PLAN Jun 23, 2021 [id number] RUSSELL SEO PATIENT AETNA RX PRESCRIPT ION RX PLAN Jun 23, 2021 [id number] RUSSELL SEO PATIENT AETNA RX PRESCRIPT ION FEHBP Jun 23, 2014 [id number] [phone] RUSSELL SEO PATIENT AETNA [facility] PREFERRED PROVIDER ORGANIZAT ION (PPO) MAXIMO PALMA Jun 23, 2014 [id number] RUSSELL SEO PATIENT MEDICARE ([place]) MEDICARE () PART B May 23, 2008 PART B [id number] RUSSELL SEO PATIENT MEDICARE (WNR) MEDICARE () PART B May 23, 2008 PART B [id number] RUSSELL SEO PATIENT MEDICARE (WNR) MEDICARE () PART A Apr 23, 2008 PART A [id number] RUSSELL SEO PATIENT MEDICARE (WNR) MEDICARE () PART A Apr 23, 2008 PART A [id number] RUSSELL SEO PATIENT MEDICARE (WNR) MEDICARE () PART A Apr 23, 2008 PART A [id number] [phone] RUSSELL SEO PATIENT MEDICARE ([place]NR) MEDICARE () PART B Apr 23, 2008 PART B [id number] [phone] RUSSELL SEO PATIENT Selected Encounter This section includes the information on record at [place] for the Encounter. Date/Time Encounter Type Encounter Description Reason Provider Source Mar 04, 2024 10:30 AM EXERCISE CLASS HEALTH/WELLBEING [facility] ICD-10-CM Z72.3 Lack of physical exercise JESSICA CARDENAS Encounter Template Text not used by [facility] Assessments - Encounter Diagnoses This section includes the primary and secondary diagnoses documented for the Encounter. Date/Time Primary/Secondary Diagnosis Diagnosis Name Provider Source Mar 18, 2024 08:31 AM PRIMARY Lack of physical exercise ABEL CARDENAS [facility] Plan of Treatment: Future Appointments (+ 6 months) and Future Tests (+/- 45 days) The Plan of Treatment section includes future care activities for the patient from all [place] treatmentfacilities. This section includes future appointments and future orders which are active, pending or scheduled. Future Appointments This section includes appointments that were scheduled to occur 6 months from the date of the Encounter, up to a maximum of 20 appointments. The data comes from all [facility]. Appointment Date/Time Appointment Type Appointme nt Facility Name Mar 26, 2024 10:30 AM AMBULATORY - MEDICINE [facility] Apr 12, 2024 01:00 PM AMBULATORY - SURGERY [facility] Apr 14, 2024 02:00 PM AMBULATORY - MEDICINE [facility] May 06, 2024 11:00 AM AMBULATORY - MEDICINE [facility] May 10, 2024 06:00 AM AMBULATORY - NONE [facility] May 12, 2024 01:00 PM AMBULATORY - MEDICINE [facility] May 19, 2024 01:30 PM [facility] May 31, 2024 10:00 AM AMBULATORY - NONE [facility] Aug 18, 2024 11:41 AM AMBULATORY - MEDICINE EMERITA Samuels [facility] Aug 19, 2024 08:30 AM AMBULATORY - NONE ROMERO Samuels [facility] Active, Pending, and Scheduled Orders This section includes a listing of several types of active, pending, and scheduled orders, including clinic medications orders, diagnostic test orders, procedure orders and consult orders; where the start date of the order is 45 days before the date of the Encounter or 45 days after the date of theEncounter. The data comes from all [facility]. Test Date/Time Test Type Test Details Facility Name Mar 01, 2024 12:00 AM Laboratory - Blood Bank Order TYPE & SCREEN - LAB BLOOD [facility] Mar 26, 2024 12:00 AM Laboratory - Chemi stry Order CYSTATIN C EGFR PANELS (STL-PB-MA) GREEN LI/HEP BLD/PLAS PLASMA [facility] Lab Results: +/- 30 days of the encounter This section includes the Chemistry and Hematology Lab Results on record with [facility] for the patient. Radiology Reports and Pathology Reports are provided separately, in subsequent sections. Lab Results This section contains the Chemistry/Hematology Results that were resulted 30 days before or 30 daysafter the date of the Encounter. Date/Time Source Result Type Result - Unit Interpretation Reference Range Specimen Type Comment Mar 26, 2024 11:30 AM [facility] MICRAL/CREAT PROFILE (STL) URINE Specimen Typ e: URINE Comment: uALB/CREAT Ratio Unable to be calculated Unable to calculate due to Microalbumin < 5.0 mg/L Ordering Provider: STEVEN SCHMIDT Report Released Date/Time: Mar 26, 2024 08:32 AM Reporting Lab: [address] [address] Performing Lab: [address] [address] URINE ALBUMIN (PB-STL) <5.0 mg/L uACR (STL) comment mg/g 0-29 CREATININE URINE/OTHERS 75.5 mg/dL 63-16 6 Mar 01, 2024 12:51 PM [facility] PT/INR NEW (STL-MA) PLASMA Specimen Type: PLAS MA No comment entered. Ordering Provider: LEISA MATHIS Report Released Date/Time: Mar 01, 2024 12:16 PM Reporting Lab: [facility] [address] [place] [id number] Performing Lab: [address] [address] PROTIME 12.7 s H 9.4-12.5 INR VALUE 1.1 {INR} Mar 01, 2024 12:51 PM [facility] COMPREHENSIVE METABOLIC PANEL PLASMA Specimen Type: PLASMA Comment: No hemolysis noted. Ordering Provider: LEISA MATHIS Report Released Date/Time: Mar 01, 2024 12:16 PM Reporting Lab: [address] [address] Performing Lab: [facility] [address] [facility] [phone] CREATININE 1.37 mg/dL H 0.7-1.3 UREA NITROGEN 14.6 mg/dL 9.0-25.0 GLUCOSE 179 mg/dL H 72-99 SODIUM 140 meq/L 136-145 POTASSIUM 4.4 meq/L 3.5-5 CHLORIDE 106 meq/L 98-107 CARBON DIOXIDE 24 meq/L 22-31 CALCIUM 9.9 mg/dL 8.4-10.4 PROTEIN 7.9 g/dL 6-8.6 ALBUMIN 3.9 g/dL 3.4-5 TOTAL BILIRUBIN 0.5 mg/dL 0.2-1.2 ALKALINE PHOSPHATASE 197 U/L H 40-150 AST/SGOT 21 U/L 5-34 ALT/SGPT 51 U/L H 8-40 EGFR (CKD-EPI 2020) 52.2 >60 Mar 01, 2024 12:[address] [facility] CBC BLOOD Specimen Type: BLOOD No comment entered. Ordering Provider: LEISA MATHIS Report Released Date/Time: Mar 01, 2024 12:16 PM Reporting Lab: [address] [address] Performing Lab: [address] [address] WBC 9.4 10*3/uL 3.6-11.2 RBC 4.90 10*6/uL 4.10-5.70 HGB 15.7 g/dL 13.1-16.8 HCT 49.2 H 38.2-48.4 MCV 100.4 fL H 80.0-100.0 MCH 32.0 pg 27.0-34.0 MCHC 31.9 g/dL L 33.0-36.0 PLT 414 10*3/uL H 150-400 MPV 9.5 fL 7.5-11.2 RDW 12.2 11.8-15.1 LYMPHOCYTES, AUTO % 21 MONOCYTES, AUTO % 6 NEUTROPHILS, AUTO % 71 EOSINOPHILS, AUTO % 2 BASOPHILS, AUTO % 1 LYMPHOCYTES, ABSOLUTE 1.98 10*3/uL 0.77- 4.50 MONOCYTES, ABSOLUTE 0.57 10*3/uL 0.19-0. 80 NEUTROPHILS, ABSOLUTE 6.65 10*3/uL 2.10- 8.00 EOSINOPHILS, ABSOLUTE 0.14 10*3/uL 0.00- 0.60 BASOPHILS, ABSOLUTE 0.06 10*3/uL 0.00-0. 20 Feb 05, 2024 01:14 PM [facility] GLUCOSE,BLOOD-poct (STL) BLOOD Specimen Type: BLOOD Comment: Test Performed by: [id number] Meter #: [id number] Ordering Provider: STEVEN SCHMIDT Report Released Date/Time: Feb 05, 2024 01:26 PM Reporting Lab: [facility] [address] [facility] [address] Performing Lab: [facility] [address] [facility] [address] GLUCOSE,BLOOD-poct (STL) 105 mg/dL H 72-99 Advance Directives: All historical and current Section Date Range: From patient's date of to the date document was created. This section includes ALL of a patient's completed or amended [place] Advance and Rescinded Directives. The entries below indicate that a directive exists for the patient, but an actual copy is not included with this document. The data comes from all [place] facilities. Date Advance Directives Provider Source Jan 14, 2022 ADVANCE DIRECTIVE DISCUSSION SHEA WINTER [facility] Radiology Reports: +/- 30 days of the [...] the Encounter. The data comes from all [place] treatment facilities. Date/Time Radiology Report Provider Source Mar 01, 2024 01:21 PM CHEST X-RAY, 2 VIEWS: LORETO SEO [id number] -[id number] M Exm Date: MAR 01, 2024@13:21 Req Phys: ALY GO Loc: [facility] HEPATOBILIARY (Req Img Loc: [facility] SUITE Service: Unknown [facility] [address] [place] [address] (Case [id number] COMPLETE) CHEST X-RAY, 2 VIEWS (RAD Detailed) CPT:54698 Reason for Study: preop Clinical History: Report Status: Verified Date Reported: MAR 01, 2024 Date Verified: MAR 01, 2024 Ingredient Handler E-Sig:/ES/Christopher Dumont MD. FACR. Report: History: preop. Comparison: No previous pertinent examination is available. Technique: PA and lateral views. Findings: No pulmonary consolidation, pleural effusion, pneumothorax, cardiomegaly or pulmonary edema is seen. Atherosclerotic mural calcification is observed in the thoracic aorta. Spur formation is seen within the thoracic spine. Deformity of the distal right clavicle suggests old trauma. Impression: No acute pulmonary infiltrate. Primary Interpreting Staff: Christopher Dumont MD. FACR, Neuroradiologist (Ingredient Handler) /CHRISTOPHER BENNETT [facility] Feb 05, 2024 02:47 PM OBSTRUCTIVE SERIES: LORETO SEO [id number] -1945 M Exm Date: FEB 05, 2024@14:47 Req Phys: NELLY LIZARRAGA Loc: -GI/ENDO LAB ANESTHESIA2 (Re Img Loc: [facility] SUITE Service: Unknown [facility] [address] [place] [address] (Case [id number] COMPLETE) OBSTRUCTIVE SERIES (RAD Detailed) CPT:79653 Reason for Study: localize endoscopic clip, placed at lumenal defect, GB fistula? Clinical History: Report Status: Verified Date Reported: FEB 06, 2024 Date Verified: FEB 06, 2024 Ingredient Handler E-Sig:/ES/ALEX DE ANDA MD Report: Case #[id number]. Obstructive series examination. Finding: Obstructive series examination shows dilated loops of bowel in the right side of the abdomen. No evidence of air-fluid level or free peritoneal air. A radiopaque density seen in the right upper quadrant most likely marker in the colon. No other evidence of radiopaque foreign body or abnormal calcification. Impression: No evidence of small bowel obstruction. Primary Interpreting Staff: ALEX DE ANDA MD, Staff Physician - Radiologist (Ingredient Handler) /ALEX BROWNING [facility] Encounter Notes: All associated encounter notes This section contains the clinical notes associated to the Encounter. Date/Time Encounter Note(s) Provider Source Mar 04, 2024 10:30 AM CARE COORDINATION HOME TELEHEALTH VIDEO VISIT NOTE: LOCAL TITLE: GEROFIT VVC SUPERVISED EXERCISE NOTE [facility] STANDARD TITLE: CARE COORDINATION HOME TELEHEALTH VIDEO VISIT NO DATE OF NOTE: MAR 04, 2024@10:30 ENTRY DATE: MAR 04, 2024@13:02:57 AUTHOR: MONIE CARDENAS EXP COSIGNER: URGENCY: STATUS: COMPLETED Gerofit Telehealth Remote Supervised Exercise Note [place] Provided informed consent to receive treatment via Telehealth. [place] mailed and has been made verbally aware of [facility] [place] practices. participated remotely in the Gerofit exercise program today through [employer]. Activities were focused on progression of their individual exercise prescription (cardiorespiratory fitness training, strength training, etc.) and group based exercise sessions to include, but not limited to: flexibility training, balance training & functional circuit training. Exercise class was instructed by Monie Cardenas DPT and Miriam Archer DPT observed class for safety monitoring and completed chair exercises. Any questions/concerns were addressed with the patient. Modifications were made to programming as appropriate to suit Veterans individual needs, preferences, and whole health concerns. Total Duration (minutes) for session: 90 Address: [address] [place] [id number] Contact Information: , Rosemary Seo [phone] /leobardo/ MONIE CARDENAS PT, DPT PHYSICAL THERAPIST Signed: 03/04/2024 13:19 Receipt Acknowledged By: 03/08/2024 23:08 /leobardo/ MIRIAM ARCHER PT, DPT, [facility] TELE PAIN PHYSICAL THERAPIST MONIE CARDENAS [facility]
--- OUTSIDE RECORDS SUMMARY | 2025-01-21 13:00 | XMS_ITS | Encounter Summary ---
Author Name [facility] Organization [facility] [place] Address [address] [place] [address] Care Team Providers Care Store Cashier Name Role Phone KARON GARCIA Primary Care Provider KENIA Mccabe Primary Care Provider STEVEN Velasquez Primary Care Provider Haseeb brizuela Insurance Providers: [...] B EXC) MAXIMO PALMA Jul 22, 2023 [id number] GABBI,GE DELONTE PATIENT [employer] PREFERRED PROVIDER ORGANIZAT ION (PPO) MAXIMO PALMA Apr 22, 2023 [id number] [phone] GABBIRUSSELL RUSHTrudy PATIENT [employer] PREFERRED PROVIDER ORGANIZAT ION (PPO) MAXIMO PALMA Jun 23, 2014 [id number] [phone] RUSSELL SEOTrudy PATIENT [employer] PHARMACY PRESCRIPT ION NONE Feb 11, 2017 NONE [id number] RUSSELL SEO PATIENT [employer] PHARMACY PRESCRIPT ION NONE Feb 11, 2017 NONE [id number] [phone] RUSSELL SEO PATIENT [employer] RX PRESCRIPT ION RX PLAN Jun 23, 2021 [id number] RUSSELL SEO PATIENT [employer] RX PRESCRIPT ION RX PLAN Jun 23, 2021 [id number] RUSSELL SEO PATIENT [employer] RX PRESCRIPT ION FEHBP Jun 23, 2014 [id number] RUSSELL SEO PATIENT AETNA [facility] PREFERRED PROVIDER ORGANIZAT ION (PPO) MAXIMO PALMA Jun 23, 2014 [id number] RUSSELL SEO PATIENT MEDICARE (WNR) MEDICARE () PART B May 23, 2008 PART B [id number] RUSSELL SEO PATIENT MEDICARE (WNR) MEDICARE () PART B May 23, 2008 PART B [id number] RUSSELL SEOD PATIENT MEDICARE (WNR) MEDICARE () PART A Apr 23, 2008 PART A [id number] RUSSELL SEO PATIENT MEDICARE (WNR) MEDICARE () PART A Apr 23, 2008 PART A [id number] RUSSELL SEOD PATIENT MEDICARE (WNR) MEDICARE () PART A Apr 23, 2008 PART A [id number] RUSSELL SEOD PATIENT MEDICARE (WNR) MEDICARE () PART B Apr 23, 2008 PART B [id number] RUSSELL SEO PATIENT Selected Encounter This section includes the information on record at OR for the Encounter. Date/Time Encounter Type Encounter Description Reason Provider Source Sep 16, 2024 10:30 AM PT [facility] ICD-10-CM Z72.3 Lack of physical exercise QUINLISK,JENELLE L IHE Encounter Template Text not used by [facility] Assessments - Encounter Diagnoses This section includes the primary and secondary diagnoses documented for the Encounter. Date/Time Primary/Secondary Diagnosis Diagnosis Name Provider Source Sep 16, 2024 04:32 PM PRIMARY Lack of physical exercise [facility] Plan of Treatment: Future Appointments (+ 6 months) and Future Tests (+/- 45 days) The Plan of Treatment section includes future care activities for the patient from all OR treatmentfacilities. This section includes future appointments and future orders which are active, pending or scheduled. Future Appointments This section includes appointments that were scheduled to occur 6 months from the date of the Encounter, up to a maximum of 20 appointments. The data comes from all OR treatment facilities. Appointment Date/Time Appointment Type Appointme nt Facility Name Sep 22, 2024 11:30 AM AMBULATORY - MEDICINE [facility] November 09, 2024 01:30 PM AMBULATORY - SURGERY [facility] Dec 07, 2024 11:00 AM AMBULATORY - MEDICINE [facility] Dec 27, 2024 10:30 AM AMBULATORY - MEDICINE [facility] Jan 07, 2025 08:00 AM AMBULATORY - NONE [facility] Feb 17, 2025 01:00 PM AMBULATORY - SURGERY [facility] Lab Results: +/- 30 days of the encounter This section includes the Chemistry and Hematology Lab Results on record with OR for the patient. Radiology Reports and Pathology Reports are provided separately, in subsequent sections. Lab Results This section contains the Chemistry/Hematology Results that were resulted 30 days before or 30 daysafter the date of the Encounter. Date/Time Source Result Type Result - Unit Interpretation Reference Range Specimen Type Comment Sep 22, 2024 11:[address] [facility] MAGNESIUM PLASMA Specimen Type: PLASMA Comment: No hemolysis noted. Ordering Provider: STEVEN SCHMIDT Report Released Date/Time: Sep 20, 2024 04:29 PM Reporting Lab: [facility] [address] [facility] [phone] Performing Lab: [facility] [address] [facility] [phone] MAGNESIUM 1.7 mg/dL 1.6-2.6 Sep 22, 2024 11:30 AM [facility] LIPID PANEL (STL) PLASMA Specimen Type : PLASMA Comment: No hemolysis noted. Ordering Provider: STEVEN SCHMIDT Report Released Date/Time: Sep 20, 2024 04:29 PM Reporting Lab: [facility] [address] [place] [phone] Performing Lab: [address] [address] CHOLESTEROL 185 mg/dL 0-200 TRIGLYCERIDE 171 mg/dL H 0-150 CALCULATED LDL 115 mg/dL HDL(New) 36 mg/dL L >40 Sep 22, 2024 11:30 AM [facility] HGA1C BLOOD Specimen Type: BLOOD No comment entered. Ordering Provider: STEVEN SCHMIDT Report Released Date/Time: Sep 20, 2024 04:29 PM Reporting Lab: [facility] [address] [place] [phone] Performing Lab: [address] [address] HGA1C 7.4 H 4.0-6.0 Sep 22, 2024 11:30 AM [facility] TSH W/ REFLEX FT4 (STL) PLASMA Specime n Type: PLASMA No comment entered. Ordering Provider: STEVEN SCHMIDT Report Released Date/Time: Sep 20, 2024 04:29 PM Reporting Lab: [facility] [address] [place] [phone] Performing Lab: [address] [address] TSH 2.029 u[IU]/mL 0.47-5 Sep 22, 2024 11:30 AM [facility] COMPREHENSIVE METABOLIC PANEL PLASMA S pecimen Type: PLASMA Comment: No hemolysis noted. Ordering Provider: STEVEN SCHMIDT Report Released Date/Time: Sep 20, 2024 04:29 PM Reporting Lab: [facility] [address] [place] [phone] Performing Lab: [address] [address] CREATININE 1.01 mg/dL 0.7-1.3 UREA NITROGEN 15.7 [...] 74.7 >60 Sep 22, 2024 11:30 AM [facility] B12 SERUM Specimen Type: SERUM No comment entered. Ordering Provider: STEVEN SCHMIDT Report Released Date/Time: Sep 20, 2024 04:29 PM Reporting Lab: [address] [phone] Performing Lab: [address] [address] B12 548 pg/mL 213-816 Sep 22, 2024 11:30 AM [facility] VITAMIN D, 25-HYDROXY SERUM Specimen Type: SERUM No comment entered. Ordering Provider: STEVEN SCHMIDT Report Released Date/Time: Sep 20, 2024 04:29 PM Reporting Lab: [address] [address] Performing Lab: [address] [address] VITAMIN D, 25-HYDROXY 23.7 ng/mL L 30-96 Sep 22, 2024 11:30 AM [facility] CBC BLOOD Specimen Type: BLOOD No comment entered. Ordering Provider: STEVEN SCHMIDT Report Released Date/Time: Sep 20, 2024 04:29 PM Reporting Lab: [address] [address] Performing Lab: [address] [address] WBC 5.0 10*3/uL 3.6-11.2 RBC 4.54 10*6/uL [...] 0.00-0. 20 Sep 22, 2024 11:30 AM [facility] MICRAL/CREAT PROFILE (STL) URINE Spec imen Type: URINE No comment entered. Ordering Provider: STEVEN SCHMIDT Report Released Date/Time: Sep 20, 2024 04:29 PM Reporting Lab: [facility] [address] [place] [phone] Performing Lab: [facility] [address] [place] [phone] URINE ALBUMIN (PB-STL) 7.6 mg/L uACR (STL) 5 mg/g 0-29 CREATININE URINE/OTHERS 158.4 mg/dL 63-1 66 Advance Directives: All historical and current Section Date Range: From patient's date of to the date document was created. This section includes ALL of a patient's completed or amended OR Advance and Rescinded Directives. The entries below indicate that a directive exists for the patient, but an actual copy is not included with this document. The data comes from all OR facilities. Date Advance Directives Provider Source Jan 14, 2022 ADVANCE DIRECTIVE DISCUSSION SHEA [facility]INTER [facility] Radiology Reports: +/- 30 days of [...] the Encounter. The data comes from all OR treatment facilities. Date/Time Radiology Report Provider Source Sep 28, 2024 10:22 AM KNEE,RIGHT 3 VIEWS: LORETO SEO [id number] -1945 M Exm Date: SEP 28, 2024@10:22 Req Phys: STEVEN SCHMIDT Loc: [facility] PCP (Req'g Loc) [facility] Service: Unknown [address] [address] (Case [id number] COMPLETE) KNEE,RIGHT 3 VIEWS (RAD Detailed) CPT:41230 Proc Modifiers : RIGHT, LATERAL, Stand AP, [place] Reason for Study: B knee pain Clinical History: Report Status: Verified Date Reported: SEP 29, 2024 Date Verified: SEP 29, 2024 Sap Bpc Architect E-Sig:/ES/ROBERTO RAWLS MD Report: 3 views COMPARISON: None No acute fracture or dislocation 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 Other: Popcorn like calcification in the central distal femur typical of enchondroma. Probable intra-articular loose bodies Impression: Tricompartmental osteoarthritis Primary Interpreting Staff: ROBERTO RAWLS MD, Radiologist (Sap Bpc Architect) /ROBERTO RAIN [facility] Sep 28, 2024 10:22 AM KNEE,LEFT, 3 VIEWS: LORETO SEO [id number] -1945 M Exm Date: SEP 28, 2024@10:22 Req Phys: STEVEN SCHMIDT Loc: [facility] PCP (Req'g Loc) [facility] Service: Unknown [address] [address] (Case [id number] COMPLETE) KNEE,LEFT, 3 VIEWS (RAD Detailed) CPT:91330 Proc Modifiers : LEFT, LATERAL, Stand AP, [place] Reason for Study: B knee pain Clinical History: Report Status: Verified Date Reported: SEP 29, 2024 Date Verified: SEP 29, 2024 Sap Bpc Architect E-Sig:/ES/ROBERTO RAWLS MD Report: 3 views COMPARISON: None No acute fracture or dislocation 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 Other: Large intra-articular loose bodies Impression: Tricompartmental osteoarthritis Primary Interpreting Staff: ROBERTO RAWLS MD, Radiologist (Sap Bpc Architect) /ROBERTO RAIN [facility] Encounter Notes: All associated encounter notes This section contains the clinical notes associated to the Encounter. Date/Time Encounter Note(s) Provider Source Sep 16, 2024 10:30 AM CARE COORDINATION HOME TELEHEALTH VIDEO VISIT NOTE: LOCAL TITLE: GEROFIT VVC SUPERVISED EXERCISE NOTE [facility] STANDARD TITLE: CARE COORDINATION HOME TELEHEALTH VIDEO VISIT NO DATE OF NOTE: SEP 16, 2024@10:30 ENTRY DATE: SEP 16, 2024@16:27:19 AUTHOR: [place] WINTER EXP COSIGNER: URGENCY: STATUS: COMPLETED Gerofit Telehealth Remote Supervised Exercise Note [place] Provided informed consent to receive treatment via Telehealth. [place] mailed and has been made verbally aware of Telehealth Group [place] practices. participated remotely in the Gerofit exercise program today through [employer]. Activities were focused on progression of their individual exercise prescription (cardiorespiratory fitness training, strength training, etc.) and group based exercise sessions to include, but not limited to: flexibility training, balance training & functional circuit training. Exercise class was instructed by Jenelle Mcclelland and Mi Winter observed class for safety [...] Total Duration (minutes) for session: 90 Address: [address] [place] [address]; [address] [place] [address] [address], [place] [id number] Contact Information: Rosemary [phone] /es/ Mi PATEL Thoracic Medicine Specialist Signed: 09/16/2024 16:33 [facility]
--- OUTSIDE RECORDS SUMMARY | 2025-01-21 13:00 | XMS_ITS | Encounter Summary ---
Author Name [facility] [place] [facility] [place] [facility] [place] [facility] [place] Address [address] [place] [address] Care Team Providers Care Cane Flume Chute Operator Name Role Phone KARON GARCIA Primary Care [...] B EXC) MAXIMO PALMA Jul 22, 2023 [id number] GABBI,GE DELONTE PATIENT [employer] PREFERRED PROVIDER ORGANIZAT ION (PPO) MAXIMO PALMA Apr 22, 2023 [id number] GABBIRUSSELL RUSHTrudy PATIENT [employer] PREFERRED PROVIDER ORGANIZAT ION (PPO) MAXIMO PALMA Jun 23, 2014 [id number] RUSSELL SEO PATIENT AETNA PHARMACY PRESCRIPT ION NONE Feb 11, 2017 NONE [id number] [phone] RUSSELL SEO PATIENT AETNA PHARMACY PRESCRIPT ION NONE Feb 11, 2017 NONE [id number] RUSSELL SEO PATIENT AETNA RX PRESCRIPT ION RX PLAN Jun 23, 2021 [id number] RUSSELL SEO PATIENT AETNA RX PRESCRIPT ION RX PLAN Jun 23, 2021 [id number] RUSSELL SEO PATIENT AETNA RX PRESCRIPT ION FEHBP Jun 23, 2014 [id number] RUSSELL SEO PATIENT AETNA [facility] PREFERRED PROVIDER ORGANIZAT ION (PPO) MAXIMO PALMA Jun 23, 2014 [id number] RUSSELL SEO PATIENT MEDICARE (WNR) MEDICARE () PART B May 23, 2008 PART B [id number] [phone] RUSSELL SEO PATIENT MEDICARE (WNR) MEDICARE () PART B May 23, 2008 PART B [id number] [phone] RUSSELL SEOD PATIENT MEDICARE (WNR) MEDICARE () PART A Apr 23, 2008 PART A [id number] [phone] RUSSELL SEOD PATIENT MEDICARE (WNR) MEDICARE (M) PART A Apr 23, 2008 PART A [id number] RUSSELL SEOD PATIENT MEDICARE (WNR) MEDICARE (M) PART A Apr 23, 2008 PART A [id number] [phone] RUSSELL SEOD PATIENT MEDICARE (WNR) MEDICARE (M) PART B Apr 23, 2008 PART B [id number] [phone] RUSSELL SEO PATIENT Selected Encounter This section includes the information on record at [place] for the Encounter. Date/Time Encounter Type Encounter Description Reason Provider Source Feb 25, 2024 02:30 PM OFFICE O/P EST LOW 20 MIN PSYCHOGERIATRIC - INDIVIDUAL ICD-10-CM F41.1 Generalized anxiety disorder Neal MORALES Encounter Template Text not used by [place] Assessments - Encounter Diagnoses This section includes the primary and secondary diagnoses documented for the Encounter. Date/Time Primary/Secondary Diagnosis Diagnosis Name Provider Source Mar 05, 2024 10:05 PM PRIMARY Generalized anxiety disorder DONTRELL MORALES [facility] Mar 05, 2024 10:05 PM SECONDARY Alzheimer's disease, unspecified DONTRELL MORALES [facility] Plan of Treatment: Future Appointments (+ 6 months) and Future Tests (+/- 45 days) The Plan of Treatment section includes future care activities for the patient from all [place] [facility] This section includes future appointments and future orders which are active, pending or scheduled. Future Appointments This section includes appointments that were scheduled to occur 6 months from the date of the Encounter, up to a maximum of 20 appointments. The data comes from all [facility]. Appointment Date/Time Appointment Type Appointme nt Facility Name Mar 01, 2024 10:30 AM AMBULATORY - SURGERY [facility] Mar 26, 2024 10:30 AM AMBULATORY - MEDICINE [facility] Apr 12, 2024 01:00 PM AMBULATORY - SURGERY [facility] Apr 14, 2024 02:00 PM AMBULATORY - MEDICINE [facility] May 06, 2024 11:00 AM AMBULATORY - MEDICINE [facility] May 10, 2024 06:00 AM AM[facility]ULATORY - NONE [facility] May 12, 2024 01:00 PM AMBULATORY - MEDICINE [facility] May 19, 2024 01:30 PM AMBULATORY - SURGERY [facility] May 31, 2024 10:00 AM AMBULATORY - NONE [facility] Aug 18, 2024 11:41 AM AMBULATORY - MEDICINE EMERITA Samuels [facility] Aug 19, 2024 08:30 AM AMBULATORY - NONE ROMERO Samuels [facility] Active, Pending, and Scheduled Orders This section includes a listing of several types of active, pending, and scheduled orders, including clinic medications orders, diagnostic test orders, procedure orders and consult orders; where the start date of the order is 45 days before the date of the Encounter or 45 days after the date of theEncounter. The data comes from all [facility]. Test Date/Time Test Type Test Details Facility Name Mar 01, 2024 12:00 AM Laboratory - Blood Bank Order TYPE & SCREEN - LAB BLOOD SP [facility] Mar 26, 2024 12:00 AM Laboratory - Chemi stry Order CYSTATIN C EGFR PANELS (STL-PB-MA) GREEN LI/HEP BLD/PLAS PLASMA [facility] Lab Results: +/- 30 days of the encounter This section includes the Chemistry and Hematology Lab Results on record with [place] for the patient. Radiology Reports and Pathology Reports are provided separately, in subsequent sections. Lab Results This section contains the Chemistry/Hematology Results that were resulted 30 days before or 30 daysafter the date of the Encounter. Date/Time Source Result Type Result - Unit Interpretation Reference Range Specimen Type Comment Mar 26, 2024 11:[address] [facility] MICRAL/CREAT PROFILE (STL) URINE Specimen Typ e: URINE Comment: uALB/CREAT Ratio Unable to be calculated Unable to calculate due to Microalbumin < 5.0 mg/L Ordering Provider: STEVEN SCHMIDT Report Released Date/Time: Mar 26, 2024 08:32 AM Reporting Lab: [facility] [address] [facility] [address] Performing Lab: [address] [address] URINE ALBUMIN (PB-STL) <5.0 mg/L uACR (STL) comment mg/g 0-29 CREATININE URINE/OTHERS 75.5 mg/dL 63-16 6 Mar 01, 2024 12:51 PM [facility] PT/INR NEW (STL-MA) PLASMA Specimen Type: PLAS MA No comment entered. Ordering Provider: LEISA MATHIS Report Released Date/Time: Mar 01, 2024 12:16 PM Reporting Lab: [facility] [address] [facility] [address] Performing Lab: [address] [address] PROTIME 12.7 s H 9.4-12.5 INR VALUE 1.1 {INR} Mar 01, 2024 12:51 PM [facility] COMPREHENSIVE METABOLIC PANEL PLASMA Specimen Type: PLASMA Comment: No hemolysis noted. Ordering Provider: LEISA MATHIS Report Released Date/Time: Mar 01, 2024 12:16 PM Reporting Lab: [address] [address] Performing Lab: [address] [address] CREATININE 1.37 mg/dL H 0.7-1.3 UREA NITROGEN [...] 52.2 >60 Mar 01, 2024 12:51 PM [facility] CBC BLOOD Specimen Type: BLOOD No comment entered. Ordering Provider: LEISA MATHIS Report Released Date/Time: Mar 01, 2024 12:16 PM Reporting Lab: [address] [address] Performing Lab: [address] [address] WBC 9.4 10*3/uL 3.6-11.2 RBC 4.90 10*6/uL [...] 0.00-0. 20 Feb 05, 2024 01:14 PM [facility] GLUCOSE,BLOOD-poct (STL) BLOOD Specimen Type: BLOOD Comment: Test Performed by: [id number] Meter #: [id number] Ordering Provider: STEVEN SCHMIDT Report Released Date/Time: Feb 05, 2024 01:26 PM Reporting Lab: [facility] [address] [facility] [address] Performing Lab: [facility] [address] [facility] [address] GLUCOSE,BLOOD-poct (STL) 105 mg/dL H 72-99 Advance Directives: All historical and current Section Date Range: From patient's date of to the date document was created. This section includes ALL of a patient's completed or amended [place] Advance and Rescinded Directives. The entries below indicate that a directive exists for the patient, but an actual copy is not included with this document. The data comes from all [facility]. Date Advance Directives Provider Source Jan 14, 2022 ADVANCE DIRECTIVE DISCUSSION SHEA WINTER [facility] Radiology Reports: +/- 30 days [...] the Encounter. The data comes from all [place] treatment facilities. Date/Time Radiology Report Provider Source Mar 01, 2024 01:21 PM CHEST X-RAY, 2 VIEWS: LORETO SEO [id number] -[id number] M Exm Date: MAR 01, 2024@13:21 Req Phys: ALY GO [facility] (Req Img Loc: [facility] SUITE Service: Unknown [facility] [address] [place] [address] (Case [id number] COMPLETE) CHEST X-RAY, 2 VIEWS (RAD Detailed) CPT:42514 Reason for Study: preop Clinical History: Report Status: Verified Date Reported: MAR 01, 2024 Date Verified: MAR 01, 2024 Chef German E-Sig:/ES/Christopher Dumont MD. FACR. Report: History: preop. [...] Interpreting Staff: Christopher Dumont MD. FACR, Neuroradiologist (Chef German) /CHRISTOPHER BENNETT [facility] Feb 05, 2024 02:47 PM OBSTRUCTIVE SERIES: LORETO SEO [id number] -[id number] M Exm Date: FEB 05, 2024@14:47 Req Phys: NELLY LIZARRAGA Loc: -GI/ENDO LAB ANESTHESIA2 (Re Img Loc: [facility] SUITE Service: Unknown [facility] [address] [place] [address] (Case [id number] COMPLETE) OBSTRUCTIVE SERIES (RAD Detailed) CPT:44063 Reason for Study: localize endoscopic clip, placed at lumenal defect, GB fistula? Clinical History: Report Status: Verified Date Reported: FEB 06, 2024 Date Verified: FEB 06, 2024 Chef German E-Sig:/ES/ALEX DE ANDA MD Report: Case #[id number]. [...] DE ANDA MD, Staff Physician - Radiologist (Chef German) /ALEX BROWNING [facility] Encounter Notes: All associated encounter notes This section contains the clinical notes associated to the Encounter. Date/Time Encounter Note(s) Provider Source Jun 02, 2024 01:42 PM MENTAL HEALTH NOTE: LOCAL TITLE: MH FLOW DISCHARGE STANDARD TITLE: MENTAL HEALTH NOTE DATE OF NOTE: JUN 02, 2024@13:42 ENTRY DATE: JUN 02, 2024@13:42:38 AUTHOR: PETER MORALES EXP COSIGNER: URGENCY: STATUS: COMPLETED Mental Health FLOW Discharge Note The [place] is no longer receiving specialty mental health services at this time. PERTINENT DIAGNOSIS(ES): GENERALIZED ANXIETY DISORDER Please refer to the progress note date Feb for additional details. Summary of the episode of care is at the end of this note. NEXT PRIMARY CARE PROVIDER (PCP) APPOINTMENT PCP name & PACT Team: Team Information Primary Care Team: [facility] PACT 3 PCP PC Provider: STEVEN SCHMIDT Position: N[facility]SE [place] Non-PC Team: [facility] Non-PC Provider: CLARISA SAEZ Position: ([facility]) REGISTERED No PCP appointment scheduled at this time REASON FOR DISCHARGE has adhered to and benefited from pharmacotherapy, which is now transferred to Primary Care (PC). The [place] has: - enough medication refills for 5 or more months - been told to contact the PCP at least one month before needing additional refills - been given a copy of current medications today Progress toward goals as evidenced by improvements in: Self-report mental health measures Current mental health medications to be refilled by PCP: BUSPAR [facility] [place] was made aware of the above: By phone SUMMARY of EPISODE of CARE: WAS SEEN 3 TIMES AND REPORTS BEING DOING WELL /leobardo/ Peter Morales M.D. Staff Physician, Psychiatry [facility] Signed: 06/02/2024 13:46 Receipt Acknowledged By: 06/02/2024 14:34 /leobardo/ CLARISA SAEZ Registered Nurse [facility] MONICA GALINDO [facility] Feb 25, 2024 02:48 PM PSYCHIATRY NOTE: LOCAL TITLE: PSYCHIATRY [facility] STANDARD TITLE: PSYCHIATRY NOTE DATE OF NOTE: FEB 25, 2024@14:48 ENTRY DATE: FEB 25, 2024@14:48:51 AUTHOR: PETER MORALES EXP COSIGNER: URGENCY: STATUS: COMPLETED SL - [facility] - MEDICATION MANAGEMENT Name..................GERALDO SEO Age...................78 Sex...................MALE SSN...................[id number] Today's Date..........FEB 25, 2024 Service Connection....Service Connected: Yes (60%) ALLERGIES: Patient has answered NKA OUTPATIENT MEDICATIONS: Active Outpatient Medications (excluding Supplies): Issue Date Status Last Fill Active Outpatient Medications Refills Expiration ========= 1) ACCU-CHEK GUIDE (GLUCOSE) TEST STRIP ACTIVE Issu:09-05-23 Qty: 50 for 365 days Sig: USE 1 STRIP Refills: 0 Last:09-08-23 FOR BLOOD TEST DIRECTED *METFORMIN Expr:09-04-24 ALONE, 50 STRIPS PER YEAR Aug 2) BISACODYL 5MG EC TAB Qty: 2 for 1 days ACTIVE Issu:01-28-24 Sig: TAKE TWO TABLETS BY MOUTH ONE Refills: 0 Last:01-29-24 TIME TAKE BISACODYL TABLETS AT 4PM Expr:02-27-24 ON AFTERNOON PRIOR TO TEST. CALL [phone] WITH ANY QUESTIONS ABOUT THESE INSTRUCTIONS. MAIL 3) BUSPIRONE HCL 10MG TAB Qty: 45 for 90 ACTIVE Issu:11-20-23 days Sig: TAKE ONE-HALF TABLET BY Refills: 1 Last:11-20-23 MOUTH ONCE A DAY FOR ANXIETY DO NOT Expr:11-20-24 TAKE WITH GRAPEFRUIT JUICE. 4) CARBOXYMETHYLCELLULOSE NA 0.5% OPH SOLN ACTIVE Issu:02-24-24 Qty: 45 for 90 days Sig: INSTILL 1 Refills: 3 Last:02-24-24 DROP IN BOTH EYES FOUR TIMES A DAY Expr:02-24-25 NEEDED FOR DRY EYE(S) 5) CETIRIZINE HCL 10MG TAB Qty: 90 for 90 ACTIVE Issu:09-24-23 days Sig: TAKE ONE TABLET BY MOUTH Refills: 2 Last:12-16-23 ONCE A DAY NEEDED FOR ALLERGY Expr:09-24-24 SYMPTOMS 6) CHOLECALCIF 50MCG (D3-2,000UNIT) TAB ACTIVE Issu:09-24-23 Qty: 100 for 90 days Sig: TAKE ONE Refills: 3 Last:12-01-23 TABLET BY MOUTH ONCE A DAY FOR VITAMIN Expr:09-24-24 D DEFICIENCY 7) CYANOCOBALAMIN 1000MCG TAB Qty: 100 for ACTIVE Issu:09-24-23 90 days Sig: TAKE ONE TABLET BY MOUTH Refills: 3 Last:10-29-23 ONCE A DAY FOR VITAMIN B12 Expr:09-24-24 SUPPLEMENTATION 8) CYCLOBENZAPRINE HCL 10MG TAB Qty: 90 ACTIVE Issu:09-24-23 for 90 days Sig: TAKE ONE TABLET BY Refills: 1 Last:12-16-23 MOUTH AT BEDTIME NEEDED FOR MUSCLE Expr:09-24-24 SPASM MAY CAUSE DROWSINESS. DO NOT DRINK ALCOHOL WHILE TAKING THIS MEDICATION. 9) ISOSORBIDE MONONITRATE 30MG SA TAB Qty: ACTIVE Issu:09-24-23 90 for 90 days Sig: TAKE ONE TABLET Refills: 3 Last:10-27-23 BY MOUTH ONCE A DAY FOR CHEST PAIN Expr:09-24-24 TAKE ON EMPTY STOMACH. SWALLOW WHOLE. DO NOT CRUSH OR CHEW. 10) METFORMIN HCL 1000MG TAB Qty: 90 for 90 ACTIVE Issu:09-24-23 days Sig: TAKE ONE TABLET BY MOUTH Refills: 3 Last:11-08-23 ONCE A DAY FOR DIABETES TAKE WITH Expr:09-24-24 FOOD. AVOID ALCOHOL. DISCONTINUE BEFORE GETTING XRAY DYE. 11) OMEPRAZOLE 40MG EC CAP Qty: 90 for 90 ACTIVE Issu:09-24-23 days Sig: TAKE ONE CAPSULE BY MOUTH Refills: 3 Last:10-30-23 EVERY MORNING BEFORE A MEAL TAKE 30 Expr:09-24-24 MINUTES PRIOR TO FOOD. 12) SIMETHICONE 80MG CHEW TAB Qty: 8 for 8 ACTIVE Issu:01-28-24 days Sig: CHEW AND SWALLOW FOUR Refills: 0 Last:01-29-24 TABLETS BY MOUTH DIRECTED FOR GAS Expr:02-27-24 DISCOMFORT FOR TWO DOSES BEFORE GI PROCEDURE 13) TAMSULOSIN HCL 0.4MG CAP Qty: 180 for ACTIVE (S) Issu:07-22-23 90 days Sig: TAKE TWO CAPSULES BY Refills: 2 Last:03-06-24 MOUTH EVERY EVENING FOR BENIGN Expr:07-22-24 PROSTATIC HYPERPLASIA APPROXIMATELY 30 MINUTES AFTER THE SAME MEAL EACH DAY Issue Date Status Last Fill Pending Outpatient Medications Refills Expiration ========= 1) BUSPIRONE HCL 10MG TAB Qty: 45 Sig: PENDING TAKE ONE-HALF TABLET BY MOUTH ONCE A Refills: 0 DAY DO NOT TAKE WITH GRAPEFRUIT JUICE. 14 Total Medications PROBLEM LIST: 1) Coronary artery disease 2) Hyperlipidemia 3) Benign essential hypertension 4) Diabetic neuropathy with neurologic complication 5) Abdominal aortic aneurysm 6) Gastroesophageal reflux disease 7) Knee pain 8) Callous character VITAL SIGNS: Pulse.................86 (12/01/2023 10:41) Temperature...........97.2 F [36.2 C] (12/01/2023 10:41) Blood Pressure........155/68 (12/01/2023 10:41) Pain..................0 (12/01/2023 10:41) Weight................225.1 lb [102.10 kg] (12/01/2023 10:41) Patient Weight History - Last Four 1. 225.1 lbs. / 102.1 kg. on DEC 01, 2023@10:41:16 2. 225.6 lbs. / 102.3 kg. on NOVEMBER 21, 2023@13:42:37 3. 222.0 lbs. / 100.7 kg. on SEP 24, 2023@12:58:05 4. 227.4 lbs. / 103.2 kg. on JUN 06, 2023@10:55:55 LAB VALUES: CBC WBC 5.2 10*3/uL 09/24/2023 13:00 RBC 4.95 10*6/uL 09/24/2023 13:00 HGB 15.8 g/dL 09/24/2023 13:00 HCT 48.1 % 09/24/2023 13:00 MCV 97.2 fL 09/24/2023 13:00 MCH 31.9 pg 09/24/2023 13:00 MCHC 32.8 L g/dL 09/24/2023 13:00 RDW 12.5 % 09/24/2023 13:00 PLT 232 10*3/uL 09/24/2023 13:00 MPV 10.5 fL 09/24/2023 13:00 NEUTROPHILS, AUTO % 60 % 09/24/2023 13:00 LYMPHOCYTES, AUTO % 30 % 09/24/2023 13:00 MONOCYTES, AUTO % 9 % 09/24/2023 13:00 EOSINOPHILS, AUTO % 1 % 09/24/2023 13:00 BASOPHILS, AUTO % 1 % 09/24/2023 13:00 NEUTROPHILS, ABSOLUTE 3.08 10*3/uL 09/24/2023 13:00 LYMPHOCYTES, ABSOLUTE 1.57 10*3/uL 09/24/2023 13:00 MONOCYTES, ABSOLUTE 0.45 10*3/uL 09/24/2023 13:00 EOSINOPHILS, ABSOLUTE 0.03 10*3/uL 09/24/2023 13:00 BASOPHILS, ABSOLUTE 0.03 10*3/uL 09/24/2023 13:00 CHEM 7 SODIUM 139 mEq/L 09/24/2023 13:00 POTASSIUM 3.8 mEq/L 09/24/2023 13:00 CHLORIDE 107 mEq/L 09/24/2023 13:00 UREA NITROGEN 14.9 mg/dL 09/24/2023 13:00 CREATININE 1.13 mg/dL 09/24/2023 13:00 CALCIUM 9.6 mg/dL 09/24/2023 13:00 CARBON DIOXIDE 24 mEq/L 09/24/2023 13:00 GLUCOSE 166 H mg/dL 09/24/2023 13:00 EGFR (CKD-EPI 2020) 65.7 09/24/2023 13:00 HEPATIC PANEL No data available TRIGLYCERIDES...108 mg/dL (09/24/23 13:00) CHOLESTEROL.....CHOLESTEROL 151 mg/dL 09/24/2023 13:00 TSH.............TSH 2.136 uIU/mL 09/24/2023 13:00 LITHIUM.........____ VALPROIC ACID...____ DIAGNOSIS BEING TREATED THIS VISIT: MILY,ALZHEIMER BY HISTORY. ANY COMPLAINTS/PROBLEMS.......Yes HE IS DOING WELL AND HEI IS CONVERSATIONAL AND ORIENTED TIMES 3. HE IS HAPPILY . TALKED ABOUT HIS CHILDRENA D LOOKING AT WRITING HIS WILL AND PROTECTING HIS CHILLDLREN FROM FIGHTING AFTER HE IS GONE. NO EDUARDO THOUGHTS. NO ACUTE RISK OF HARM TO SELF OR OTHERS AT THIS TIME.NO GOLDY OR PSYCHOSIS.,LIKES ONLY BUSPAR AND HE IS NOT WANTING MELATONINS.HE TAKES NAPS AND 6 HOURS OF SLEEP. PTSD SYMPTOMS: SMOKES...No DRINKS...No DRUGS....No MOOD: MOOD IS GOOD. ACTIVITIES: WATCH TV, TAKE NAPS. CONTACT: Maya Saez GOAL: STABILISE MOOD ANY MEDICATION SIDE EFFECT....No APPETITE......................Go od SLEEP.........................Fa ir This provider engaged the in shared decision-making/treatment planning. MENTAL STATUS: MOOD/AFFECT.................Norm al MOOD IS GOOD. DELUSIONS/HALLUCINATIONS....Abse nt SUICIDAL/AGGRESSIVE.........Abse nt ALERT & ORIENTED X3 WITH GOOD CONCENTRATION........Yes CO-OP ALERT AND SHARP FOR HIS AGE. COMMENTS: None NELATY DRESSED WELL GROOMED WHITE MALE WITH CLEAN CUT WHITE MALE WITH SENSE OF HUMOR. MEDICATION CHANGE.............No SAME MEDS. SUPPORTIVE PSYCHOTHERAPY......Yes WILL SEE ME BEOFRE XMAS. HAD GOOD SESSION TIME SPENT 20 MINUTES. GAF:No previous GAF entered. Current Gaf: TREATMENT PLAN: Continue with current Treatment Plan Medication Management INSTRUCTIONS GIVEN TO PATIENT/FAMILY: Report medication side effects promptly No alcohol/illicit drug use with medication Needs to be cautious with driving/use of machinery Avoid night-time driving Follow up with Primary Care Provider If symptoms get worse, call clinic or Emergency Room as appropriate /leobardo/ Peter Morales M.D. Staff Physician, Psychiatry [facility] Signed: 02/25/2024 14:59 Receipt Acknowledged By: 06/02/2024 14:16 /leobardo/ STEVEN SCHMIDT MSN, RN CLINICAL, INTERLIBRARY LOAN SERVICES LIBRARIAN- NURSE PRACTITIONER MONICA MORALES [facility]
--- OUTSIDE RECORDS SUMMARY | 2025-01-21 13:00 | XMS_ITS | Encounter Summary ---
Author Name [facility] [place] [facility] [place] Address [address] [place] [address] Care Team Providers Care Project Manager Finance Name Role Phone KARON GARCIA Primary Care [...] B EXC) MAXIMO PALMA Jul 22, 2023 [id number] GABBI,GE DELONTE PATIENT [employer] PREFERRED PROVIDER ORGANIZAT ION (PPO) MAXIMO PALMA Apr 22, 2023 [id number] [phone] GABBI,GE DELONTE PATIENT [employer] PREFERRED PROVIDER ORGANIZAT ION (PPO) MAXIMO PALMA Jun 23, 2014 [id number] RUSSELL SEOTrudy PATIENT AETNA PHARMACY PRESCRIPT ION NONE Feb 11, 2017 NONE [id number] RUSSELL SEO PATIENT AETNA PHARMACY PRESCRIPT ION NONE Feb 11, 2017 NONE [phone] RUSSELL SEO PATIENT AETNA RX PRESCRIPT ION RX PLAN Jun 23, 2021 [id number] RUSSELL SEO PATIENT AETNA RX PRESCRIPT ION RX PLAN Jun 23, 2021 [id number] RUSSELL SEO PATIENT AETNA RX PRESCRIPT ION FEHBP Jun 23, 2014 [id number] RUSSELL SEO PATIENT AETNA [facility] PREFERRED PROVIDER ORGANIZAT ION (PPO) MAXIMO PALMA Jun 23, 2014 [id number] RUSSELL SEO PATIENT MEDICARE (WNR) MEDICARE (M) PART B May 23, 2008 PART B [id number] RUSSELL SEO PATIENT MEDICARE (WNR) MEDICARE (M) PART B May 23, 2008 PART B [id number] [phone] RUSSELL SEOD PATIENT MEDICARE (WNR) MEDICARE (M) PART A Apr 23, 2008 PART A [id number] [phone] RUSSELL SEO PATIENT MEDICARE (WNR) MEDICARE (M) PART A Apr 23, 2008 PART A [id number] RUSSELL SEO PATIENT MEDICARE (WNR) MEDICARE (M) PART A Apr 23, 2008 PART A [id number] RUSSELL SEO PATIENT MEDICARE (WNR) MEDICARE (M) PART B Apr 23, 2008 PART B [id number] [phone] RUSSELL SEO PATIENT Selected Encounter This section includes the information on record at [place] for the Encounter. Date/Time Encounter Type Encounter Description Reason Pro vider Source Jan 21, 2025 09:48 AM Outpatient Encounter ADMIN PAT ACTIVTIES (MASNONCT) IHE Encounter Template Text not used by [facility] Plan of Treatment: Future Appointments (+ 6 months) and Future Tests (+/- 45 days) The Plan of Treatment section includes future care activities for the patient from all [place] treatmentfacilities. This section includes future appointments and future orders which are active, pending or scheduled. Future Appointments This section includes appointments that were scheduled to occur 6 months from the date of the Encounter, up to a maximum of 20 appointments. The data comes from all [place] treatment facilities. Appointment Date/Time Appointment Type Appointme nt Facility Name Feb 17, 2025 01:00 PM AMBULATORY - SURGERY [facility] Mar 24, 2025 02:30 PM AMBULATORY - MEDICINE [facility] Active, Pending, and Scheduled Orders This section includes a listing of several types of active, pending, and scheduled orders, including clinic medications orders, diagnostic test orders, procedure orders and consult orders; where the start date of the order is 45 days before the date of the Encounter or 45 days after the date of theEncounter. The data comes from all [facility]. Test Date/Time Test Type Test Details Facility Name Dec 14, 2024 01:30 PM Consult Order [facility] Classroom Teacher's [facility] Jan 13, 2025 11:32 AM Consult Order PROSTHETIC S REQUEST - COMMUNITY CARE [facility] Cons Classroom Teacher's [facility] Advance Directives: All historical and current Section Date Range: From patient's date of to the date document was created. This section includes ALL of a patient's completed or amended [place] Advance and Rescinded Directives. The entries below indicate that a directive exists for the patient, but an actual copy is not included with this document. The data comes from all [facility]. Date Advance Directives Provider Source Jan 14, 2022 ADVANCE DIRECTIVE DISCUSSION [facility]INTER [facility] Encounter Notes: All associated encounter notes This section contains the clinical notes associated to the Encounter. Date/Time Encounter Note(s) Provider Source Jan 21, 2025 09:48 AM ADMINISTRATIVE NOT E: LOCAL TITLE: CONTACT NOTE ST STANDARD TITLE: ADMINISTRATIVE NOTE DATE OF NOTE: JAN 21, 2025@09:48 ENTRY DATE: JAN 21, 2025@09:48:29 AUTHOR: STEPHENIE ANGELES EXP COSIGNER: URGENCY: STATUS: COMPLETED RCVD NOTES FROM [facility]ST /leobardo/ STEPHENIE ANGELES ADVANCED BUSINESS SERVICES ANALYST Signed: 01/21/2025 09:49 Receipt Acknowledged By: * AWAITING SIGNATURE * [facility]
--- OUTSIDE RECORDS SUMMARY | 2025-01-21 13:00 | XMS_ITS ---
Author Name [facility] [place] Address [address] [place] [address] Care Team Providers Care Medical Grade Shoemaker Name Role Phone KARON GARCIA Primary Care [...] B EXC) MAXIMO PALMA Jul 22, 2023 [id number] [phone] GABBI,GE DELONTE PATIENT [employer] PREFERRED PROVIDER ORGANIZAT ION (PPO) MAXIMO PALMA Apr 22, 2023 [id number] [phone] GABBIRUSSELL RUSHTrudy PATIENT AETNA PREFERRED PROVIDER ORGANIZAT ION (PPO) MAXIMO PALMA Jun 23, 2014 [id number] RUSSELL SEO PATIENT AETNA PHARMACY PRESCRIPT ION NONE Feb 11, 2017 NONE [id number] [phone] RUSSELL SEO PATIENT AETNA PHARMACY PRESCRIPT ION NONE Feb 11, 2017 NONE [id number] RUSSELL SEO PATIENT AETNA RX PRESCRIPT ION RX PLAN Jun 23, 2021 [id number] RUSSELL SEOD PATIENT AETNA RX PRESCRIPT ION RX PLAN Jun 23, 2021 [id number] RUSSELL SEO PATIENT AETNA RX PRESCRIPT ION FEHBP Jun 23, 2014 [id number] RUSSELL SEO PATIENT AETNA [facility] PREFERRED PROVIDER ORGANIZAT ION (PPO) MAXIMO PALMA Jun 23, 2014 [id number] RUSSELL SEOD PATIENT MEDICARE (WNR) MEDICARE () PART B May 23, 2008 PART B [id number] RUSSELL SEOD PATIENT MEDICARE (WNR) MEDICARE () PART B May 23, 2008 PART B [id number] RUSSELL SEOD PATIENT MEDICARE (WNR) MEDICARE () PART A Apr 23, 2008 PART A [id number] RUSSELL SEOD PATIENT MEDICARE (WNR) MEDICARE (M) PART A Apr 23, 2008 PART A [id number] RUSSELL SEOD PATIENT MEDICARE (WNR) MEDICARE (M) PART A Apr 23, 2008 PART A [id number] RUSSELL SEOD PATIENT MEDICARE (WNR) MEDICARE (M) PART B Apr 23, 2008 PART B [id number] RUSSELL SEO PATIENT Selected Encounter This section includes the information on record at [place] for the Encounter. Date/Time Encounter Type Encounter Description Reason Provider Source Dec 27, 2024 10:30 AM OFFICE O/P EST MOD 30 MIN GASTROENTEROLOGY ICD-10-CM Z98.890 Other specified postprocedural states OBEY STEWART E Encounter Template Text not used by [place] Assessments - Encounter Diagnoses This section includes the primary and secondary diagnoses documented for the Encounter. Date/Time Primary/Secondary Diagnosis Diagnosis Name Provider Source Jan 07, 2025 11:11 AM PRIMARY Other specified postprocedural states SANTY STEWART [facility] Plan of Treatment: Future Appointments (+ 6 months) and Future Tests (+/- 45 days) The Plan of Treatment section includes future care activities for the patient from all [place] treatmentfacilities. This section includes future appointments and future orders which are active, pending or scheduled. Future Appointments This section includes appointments that were scheduled to occur 6 months from the date of the Encounter, up to a maximum of 20 appointments. The data comes from all [place] treatment facilities. Appointment Date/Time Appointment Type Appointme nt Facility Name Jan 07, 2025 08:00 AM AMBULATORY - NONE . [facility] Feb 17, 2025 01:00 PM AMBULATORY - SURGERY . [facility] Mar 24, 2025 02:30 PM AMBULATORY - MEDICINE [facility] Active, Pending, and Scheduled Orders This section includes a listing of several types of active, pending, and scheduled orders, including clinic medications orders, diagnostic test orders, procedure orders and consult orders; where the start date of the order is 45 days before the date of the Encounter or 45 days after the date of theEncounter. The data comes from all [place] treatment [facility]. Test Date/Time Test Type Test Details Facility Name Dec 14, 2024 01:30 PM Consult Order [facility] Cons Chute Builder's Choice [facility] Jan 13, 2025 11:32 AM Consult Order PROSTHETIC S REQUEST - COMMUNITY CARE [facility] Cons Chute Builder's Choice [facility] Vital Signs: All taken on the encounter date This section contains inpatient and outpatient Vital Signs collected on the date of the Encounter. Date/Time Temperature Pulse Blood Pressure Respiratory Rate SP02 Pain Height Weight Body Mass Index Source Dec 27, 2024 10:01 AM 97.2 F 70 /min 103/60 mm[Hg] 16 /min 96 % [address] [facility] Advance Directives: All historical and current Section Date Range: From patient's date of to the date document was created. This section includes ALL of a patient's completed or amended [place] Advance and Rescinded Directives. The entries below indicate that a directive exists for the patient, but an actual copy is not included with this document. The data comes from all [place] facilities. Date Advance Directives Provider Source Jan 14, 2022 ADVANCE DIRECTIVE DISCUSSION SHEA WINTER [facility] Encounter Notes: All associated encounter notes This section contains the clinical notes associated to the Encounter. Date/Time Encounter Note(s) Provider Source Dec 27, 2024 10:14 AM GASTROENTEROLOGY C ONSULT: LOCAL TITLE: GASTROENTEROLOGY OUTPATIENT CONSULT [facility] STANDARD TITLE: GASTROENTEROLOGY CONSULT DATE OF NOTE: DEC 27, 2024@10:14 ENTRY DATE: DEC 27, 2024@10:15:02 AUTHOR: ROXANNE STEWART EXP COSIGNER: URGENCY: STATUS: COMPLETED HPI: Mr. Seo is an 79 y/o vet referred to GI for Chronic Diarrhea (Order TSH and stool culture, Other hx colonic fistula Describe complaints, previous work-up, and additional details: on anticoag Pt is known to my colleague, Dr. Franklin. Briefly, NOVEMBER 21, 2023 - over a year of intermittent RUQ pain. [facility] CT with possible fistula. FEB 05, 2024 - Colonoscopy 05/10/2024 CCK performed. No fistula, however the hepatic flexure of the colon was densely adherent to the contracted gallbladder. 12/27/2024 - diarrhea x 3 weeks, told PCP cholestyramine seems to have stopped the problem x the most recent 2 weeks. he started taking the cholestyramine regular 3 weeks ago. Prior to that he was taking cholestyramine PRN/when he had diarrhea. Denies fever, chills, night sweats or unintended weight loss. Denies melena, hematochezia, hematemesis, maroon stools, GERD, nausea, vomiting, diarrhea or constipation or abdominal pain. ROS: normal review of systems MEDICAL HISTORY: 1) Coronary artery disease 2) Hyperlipidemia 3) Benign essential hypertension 4) Diabetic neuropathy with neurologic complication 5) Abdominal aortic aneurysm 6) Gastroesophageal reflux disease 7) Knee pain 8) Callous character 9) Colonic fistula Surgical History - CCK 04/2024 PHYSICIAL EXAMINATION: Vitals: BP 103/60 (12/27/2024 10:01) HR 70 (12/27/2024 10:01) RR 16 (12/27/2024 10:01) 12/27/2024 10:01 230(104.33)[31*] 12/07/2024 11:01 229.6(104.14)[31*] 09/22/2024 11:38 231.8(105.14)[32*] BMI 31.3 General: well nourished, well developed ambulatory patient Oral mucosa: moist Chest: clear to auscultation bilaterally. Heart RRR. Abdomen: soft, non-tender, non-distended, with no organomegaly or ascites. Normal peristalsis. Assessment/Plan; #post CCK diarrhea - resolved with daily dosing (rather than PRN dosing) of cholestyramine Total time spent caring for the patient today was 30 minutes. This includes time spent before the visit reviewing the chart, time spent during the visit, and time spent after the visit on documentation, etc. Time excludes procedure time. RTC: should diarrhea present on daily cholestyramine == Note was dictated utilizing voice recognition software. Please excuse any grammatical/syntax errors, or incorrect use of homophones that have escaped final proofreading. Please do not hesitate to contact me for clarification should this occur. Patient questions/refills: [phone] ext.: [phone] GI consult scheduling [phone] ext. [phone] Other GI questions [phone] ext. [phone] For instructions on GI procedure preps please call [phone] extension [phone], option 2 /es/ Roxanne Stewart PA-C Gastroenterology/Hepatology Physician Ultrasonic Tester Signed: 12/27/2024 10:44 ROXANNE STEWART [facility]
--- OUTSIDE RECORDS SUMMARY | 2025-01-21 13:00 | XMS_ITS | Encounter Summary ---
Author Name [facility] [place] Organization [place] Address [address] [place] [address] Care Team Providers Care Division Sales Manager Name Role Phone KARON GARCIA Primary Care [...] B EXC) MAXIMO PALMA Jul 22, 2023 [id number] GABBIRUSSELL PATIENT [employer]ETNA PREFERRED PROVIDER ORGANIZAT ION (PPO) MAXIMO PALMA Apr 22, 2023 [id number] [phone] RUSSELL SEO PATIENT [employer]ETNA PREFERRED PROVIDER ORGANIZAT ION (PPO) MAXIMO PALMA Jun 23, 2014 [id number] [phone] GABBI,RUSSELL MARTEL PATIENT AETNA PHARMACY PRESCRIPT ION NONE Feb 11, 2017 NONE [id number] [phone] RUSSELL SEO PATIENT AETNA PHARMACY PRESCRIPT ION NONE Feb 11, 2017 NONE [id number] [phone] RUSSELL SEO PATIENT AETNA RX PRESCRIPT ION RX PLAN Jun 23, 2021 [id number] RUSSELL SEO PATIENT AETNA RX PRESCRIPT ION RX PLAN Jun 23, 2021 [id number] RUSSELL SEO PATIENT AETNA RX PRESCRIPT ION FEHBP Jun 23, 2014 [id number] [phone] RUSSELL SEO PATIENT AETNA [facility] PREFERRED PROVIDER ORGANIZAT ION (PPO) MAXIMO PALMA Jun 23, 2014 [id number] RUSSELL SEO PATIENT MEDICARE (WNR) MEDICARE (M) PART B May 23, 2008 PART B [id number] RUSSELL SEO PATIENT MEDICARE (WNR) MEDICARE (M) PART B May 23, 2008 PART B [id number] RUSSELL SEO PATIENT MEDICARE (WNR) MEDICARE (M) PART A Apr 23, 2008 PART A [id number] [phone] RUSSELL ESO PATIENT MEDICARE (WNR) MEDICARE (M) PART A Apr 23, 2008 PART A [id number] RUSSELL SEO PATIENT MEDICARE (WNR) MEDICARE () PART A Apr 23, 2008 PART A [id number] [phone] RUSSELL SEO PATIENT MEDICARE (WNR) MEDICARE (M) PART B Apr 23, 2008 PART B [id number] RUSSELL SEO PATIENT Selected Encounter This section includes the information on record at [place] for the Encounter. Date/Time Encounter Type Encounter Description Reason Pro vider Source Nov 26, 2024 10:37 AM Outpatient Encounter COMMUNITY CARE CONSULT IHE Encounter Template Text not used by VA Plan of Treatment: Future Appointments (+ 6 months) and Future Tests (+/- 45 days) The Plan of Treatment section includes future care activities for the [facility] [place] [facility] This section includes future appointments and future orders which are active, pending or scheduled. Future Appointments This section includes appointments that were scheduled to occur 6 months from the date of the Encounter, up to a maximum of 20 appointments. The data comes from all [facility]. Appointment Date/Time Appointment Type Appointme nt Facility Name Dec 07, 2024 11:00 AM AMBULATORY - MEDICINE [facility] Dec 27, 2024 10:30 AM AMBULATORY - MEDICINE [facility] Jan 07, 2025 08:00 AM AMBULATORY - NONE [facility] Feb 17, 2025 01:00 PM AMBULATORY - SURGERY [facility] Mar 24, 2025 02:30 PM AMBULATORY - MEDICINE [facility] Active, Pending, and Scheduled Orders This section includes a listing of several types of active, pending, and scheduled orders, including clinic medications orders, diagnostic test orders, procedure orders and consult orders; where the start date of the order is 45 days before the date of the Encounter or 45 days after the date of theEncounter. The data comes from all [facility]. Test Date/Time Test Type Test Details Facility Name Dec 14, 2024 01:30 PM Consult Order [facility] SKILLED [facility] CARE ST Cons 911 Telecommunicator's [facility] Advance Directives: All historical and current Section Date Range: From patient's date of to the date document was created. This section includes ALL of a patient's completed or amended [place] Advance and Rescinded Directives. The entries below indicate that a directive exists for the patient, but an actual copy is not included with this document. The data comes from all [facility]. Date Advance Directives Provider Source Jan 14, 2022 ADVANCE DIRECTIVE DISCUSSION [facility] Encounter Notes: All associated encounter notes This section contains the clinical notes associated to the Encounter. Date/Time Encounter Note(s) Provider Source Nov 26, 2024 10:37 AM NONVA NOTE: LOCAL TITLE: COMMUNITY CARE-REQUEST FOR SERVICE NOTE [facility] STANDARD TITLE: NONVA NOTE DATE OF NOTE: NOV 26, 2024@10:37 ENTRY DATE: NOV 26, 2024@10:37:57 AUTHOR: CYRUS,DAVID F EXP COSIGNER: URGENCY: STATUS: COMPLETED COMMUNITY CARE-REQUEST FOR SERVICE NOTE [facility] Has ADDENDA Request for Services (RFS) documentation has been sent for scanning to [facility] Consult: COMMUNITY CARE-ortho general Consult No: [id number] Date sent to scanning: Nov A Request for Service (RFS) form [id number] has been received which includes the following: Care Requested:DME - CPM ICD-10 Dx code: M17.11 Date [facility] received request: Nov Date service required: Nov Requesting Community Provider Information: Name of Ordering Provider: Dr Yayo Degroot Office:[facility] Address, [facility], [facility]: [address] [place] [address] Phone Number: [phone] Fax: [phone] /leboardo/ DAVID BRIDGES RN MSN REGISTERED NURSE Signed: 11/26/2024 10:41 Receipt Acknowledged By: 11/26/2024 11:33 /leobardo/ STEVEN BOWDEN, ELECTRICAL AND INSTRUMENTATION MANAGER, PORTRAIT ARTIST-BC NURSE PRACTITIONER 11/26/2024 11:11 /leobardo/ DYLAN DANIELS, RN Registered Nurse 11/26/2024 12:51 /leobardo/ IDA SOTO PA-C Physician Catcher Plug, Orthopedic 11/26/2024 ADDENDUM STATUS: COMPLETED Pt was referred out by PCP, endorsed by ortho. /DYLAN West, RN Registered Nurse Signed: 11/26/2024 11:11 11/26/2024 ADDENDUM STATUS: COMPLETED Consult for CPM entered per request. /susana SOTO PA-C Physician Catcher Plug, Orthopedic Signed: 11/26/2024 12:52 DAVID BRIDGES [facility]
--- OUTSIDE RECORDS SUMMARY | 2025-01-21 13:00 | XMS_ITS | Encounter Summary ---
Author Name [facility] [facility] [place] [facility] [place] [facility] [place] Address [address] [place] [address] Care Team Providers Care Longitudinal Float Operator Name Role Phone KARON GARCIA Primary [...] B EXC) MAXIMO PALMA Jul 22, 2023 [id number] GABBIRUSSELL RUSHTrudy PATIENT [employer] PREFERRED PROVIDER ORGANIZAT ION (PPO) MAXIMO PALMA Apr 22, 2023 [id number] [phone] GABBI,GE DELONTE PATIENT [employer] PREFERRED PROVIDER ORGANIZAT ION (PPO) MAXIMO PALMA Jun 23, 2014 [id number] [phone] RUSSELL SEOTrudy PATIENT AETNA PHARMACY PRESCRIPT ION NONE Feb 11, 2017 NONE [id number] [phone] RUSSELL SEO PATIENT [employer]ETNA PHARMACY PRESCRIPT ION NONE Feb 11, 2017 NONE [id number] [phone] RUSSELL SEO PATIENT AETNA RX PRESCRIPT ION RX PLAN Jun 23, 2021 [id number] RUSSELL SEO PATIENT AETNA RX PRESCRIPT ION RX PLAN Jun 23, 2021 [id number] RUSSELL SEO PATIENT AETNA RX PRESCRIPT ION FEHBP Jun 23, 2014 [id number] [phone] RUSSELL SEO PATIENT AETNA [facility] PREFERRED PROVIDER ORGANIZAT ION (PPO) MAXIMO PALMA Jun 23, 2014 [id number] RUSSELL SEO PATIENT MEDICARE (WNR) MEDICARE () PART B May 23, 2008 PART B [id number] RUSSELL SEOD PATIENT MEDICARE (WNR) MEDICARE () PART B May 23, 2008 PART B [id number] RUSSELL SEOD PATIENT MEDICARE (WNR) MEDICARE () PART A Apr 23, 2008 PART A [id number] RUSSELL SEOD PATIENT MEDICARE (WNR) MEDICARE () PART A Apr 23, 2008 PART A [id number] RUSSELL SEOD PATIENT MEDICARE (WNR) MEDICARE () PART A Apr 23, 2008 PART A [id number] [phone] RUSSELL SEOD PATIENT MEDICARE (WNR) MEDICARE () PART B Apr 23, 2008 PART B [id number] RUSSELL SEO PATIENT Selected Encounter This section includes the information on record at [place] for the Encounter. Date/Time Encounter Type Encounter Description Reason Provider Source Sep 22, 2024 11:30 AM OFFICE O/P EST MOD 30 MIN PRIMARY CARE/MEDICINE ICD-10-CM I25.83 Coronary atherosclerosis due to lipid rich plaque BRAYAN,VINAY MCHUGH Encounter Template Text not used by [place] Assessments - Encounter Diagnoses This section includes the primary and secondary diagnoses documented for the Encounter. Date/Time Primary/Secondary Diagnosis Diagnosis Name Provider Source Oct 06, 2024 09:39 PM PRIMARY Coronary atherosclerosis due to lipid rich plaque SAGAR MARISCAL DOUGL[facility] Oct 06, 2024 09:39 PM SECONDARY Abdominal aortic aneurysm, without rupture, pepperified SAGAR MARISCAL NEGRO DOUGL[facility] Oct 06, 2024 09:39 PM SECONDARY Essential (primary) hypertension SAGAR MARISCAL NEGRO Devante [facility]OU[facility] Oct 06, 2024 09:39 PM SECONDARY Fistula of gallbladder SAGAR MARISCAL NEGRO Devante [facility] Oct 06, 2024 09:39 PM SECONDARY Gastro-esophageal reflux disease without esophagitis SAGAR MARISCAL NEGRO DOUGL[facility] Oct 06, 2024 09:39 PM SECONDARY Hyperlipidemia, pepperified SAGAR MARISCAL NEGRO DOUGL[facility] Oct 06, 2024 09:39 PM SECONDARY Pain in unspecified knee EDY MARISCALCarlos DOUGLAS [facility] Oct 06, 2024 09:39 PM SECONDARY Type 2 diabetes mellitus with diabetic neuropathy, unsp SAGAR MARISCAL NEGRO Devante [facility] Plan of Treatment: Future Appointments (+ 6 months) and Future Tests (+/- 45 days) The Plan of Treatment section includes future care activities for the [facility] [place] [facility] This section includes future appointments and future orders which are active, pending or scheduled. Future Appointments This section includes appointments that were scheduled to occur 6 months from the date of the Encounter, up to a maximum of 20 appointments. The data comes from all [place] treatment facilities. Appointment Date/Time Appointment Type Appointme nt Facility Name November 09, 2024 01:30 PM AMBULATORY - SURGERY [facility] Dec 07, 2024 11:00 AM AMBULATORY - MEDICINE [facility] Dec 27, 2024 10:30 AM AMBULATORY - MEDICINE [facility] Jan 07, 2025 08:00 AM AMBULATORY - NONE . [facility] Feb 17, 2025 01:00 PM AMBULATORY - SURGERY [facility] Mar 24, 2025 02:30 PM AMBULATORY - MEDICINE [facility] Lab Results: +/- 30 days of the encounter This section includes the Chemistry and Hematology Lab Results on record with [place] for the patient. Radiology Reports and Pathology Reports are provided separately, in subsequent sections. Lab Results This section contains the Chemistry/Hematology Results that were resulted 30 days before or 30 daysafter the date of the Encounter. Date/Time Source Result Type Result - Unit Interpretation Reference Range Specimen Type Comment Sep 22, 2024 11:30 AM [facility] MAGNESIUM PLASMA Specimen Type: PLASMA Comment: No hemolysis noted. Ordering Provider: STEVEN SCHMIDT Report Released Date/Time: Sep 20, 2024 04:29 PM Reporting Lab: [facility] [address] [facility] [address] Performing Lab: [facility] [address] [place] [id number] MAGNESIUM 1.7 mg/dL 1.6-2.6 Sep 22, 2024 11:30 AM [facility] HGA1C BLOOD Specimen Type: BLOOD No comment entered. Ordering Provider: STEVEN SCHMIDT Report Released Date/Time: Sep 20, 2024 04:29 PM Reporting Lab: [facility] [address] [facility] [address] Performing Lab: [facility] [address] [address] HGA1C 7.4 H 4.0-6.0 Sep 22, 2024 11:30 AM [facility] COMPREHENSIVE METABOLIC PANEL PLASMA S pecimen Type: PLASMA Comment: No hemolysis noted. Ordering Provider: STEVEN SCHMIDT Report Released Date/Time: Sep 20, 2024 04:29 PM Reporting Lab: [facility] [address] [facility] [address] Performing Lab: [facility] [address] [facility] [address] CREATININE 1.01 mg/dL 0.7-1.3 UREA NITROGEN 15.7 [...] 74.7 >60 Sep 22, 2024 11:30 AM [facility] B12 SERUM Specimen Type: SERUM No comment entered. Ordering Provider: STEVEN SCHMIDT Report Released Date/Time: Sep 20, 2024 04:29 PM Reporting Lab: [facility] [address] [place] [facility] [address] Performing Lab: [place] [address] [address] B12 548 pg/mL 213-816 Sep 22, 2024 11:30 AM [facility] LIPID PANEL (L) PLASMA Specimen Type : PLASMA Comment: No hemolysis noted. Ordering Provider: STEVEN SCHMIDT Report Released Date/Time: Sep 20, 2024 04:29 PM Reporting Lab: [facility] [address] [place] [facility] [place] [address] Performing Lab: [facility] [address] [address] CHOLESTEROL 185 mg/dL 0-200 TRIGLYCERIDE 171 mg/dL H 0-150 CALCULATED LDL 115 mg/dL HDL(New) 36 mg/dL L >40 Sep 22, 2024 11:30 AM [facility] TSH W/ REFLEX FT4 (STL) PLASMA Specime n Type: PLASMA No comment entered. Ordering Provider: STEVEN SCHMIDT Report Released Date/Time: Sep 20, 2024 04:29 PM Reporting Lab: [facility] [address] [place] [address] Performing Lab: [facility] [address] [address] TSH 2.029 u[IU]/mL 0.47-5 Sep 22, 2024 11:30 AM [facility] MICRAL/CREAT PROFILE (L) URINE Spec imen Type: URINE No comment entered. Ordering Provider: STEVEN SHCMIDT Report Released Date/Time: Sep 20, 2024 04:29 PM Reporting Lab: [address] [address] Performing Lab: [address] [address] URINE ALBUMIN (PB-STL) 7.6 mg/L uACR (STL) 5 mg/g 0-29 CREATININE URINE/OTHERS 158.4 mg/dL 63-1 66 Sep 22, 2024 11:30 AM [facility] VITAMIN D, 25-HYDROXY SERUM Specimen Type: SERUM No comment entered. Ordering Provider: STEVEN SCHMIDT Report Released Date/Time: Sep 20, 2024 04:29 PM Reporting Lab: [address] [address] Performing Lab: [address] [address] VITAMIN D, 25-HYDROXY 23.7 ng/mL L 30-96 Sep 22, 2024 11:30 AM [facility] CBC BLOOD Specimen Type: BLOOD No comment entered. Ordering Provider: STEVEN SCHMIDT Report Released Date/Time: Sep 20, 2024 04:29 PM Reporting Lab: [address] [address] Performing Lab: [address] [address] WBC 5.0 10*3/uL 3.6-11.2 RBC 4.54 10*6/uL [...] 0.60 BASOPHILS, ABSOLUTE 0.03 10*3/uL 0.00-0. 20 Vital Signs: All taken on the encounter date This section contains inpatient and outpatient Vital Signs collected on the date of the Encounter. Date/Time Temperature Pulse Blood Pressure Respiratory Rate SP02 Pain Height Weight Body Mass Index Source Sep 22, 2024 11:38 AM 97.5 58 139/74 18 98 4 72 231.8 32 [facility] Social History: Smoking Status (Most current) and Tobacco Use (All prior to encounter date) This section includes the most current, and the historical, smoking and tobacco- related health factors from the [place] facility where the Encounter took place. Current Smoking Status This section includes the most current smoking, or tobacco-related health factor, from the [place] facility where the Encounter took place. Date/Time Current Smoking Status Comment Facil ity Mar 26, 2024 10:30 AM [place]-TOBACCO NEVER USED [facility] Tobacco Use History This section includes a history of the smoking, or tobacco-related health factors, that were collected on or before the date of the Encounter. The data comes from the [place] facility where the Encounter took place. Date/Time Smoking Status/Tobacco Use Comment F acility Feb 10, 2023 09:00 AM [place]-TOBACCO NEVER USED [facility] Advance Directives: All historical and current Section Date Range: From patient's date of to the date document was created. This section includes ALL of a patient's completed or amended [place] Advance and Rescinded Directives. The entries below indicate that a directive exists for the patient, but an actual copy is not included with this document. The data comes from all [place] facilities. Date Advance Directives Provider Source Jan 14, 2022 ADVANCE DIRECTIVE DISCUSSION [facility] Radiology Reports: +/- 30 days of the [...] the Encounter. The data comes from all [place] treatment facilities. Date/Time Radiology Report Provider Source Sep 28, 2024 10:22 AM KNEE,RIGHT 3 VIEWS: LORETO SEO [id number] -1945 M Exm Date: SEP 28, 2024@10:22 Req Phys: STEVEN SCHMIDT Loc: -WASH PACT 3 PCP (Req'g Loc) Img Loc: [facility] SUITE Service: Unknown [address] [address] (Case [id number] COMPLETE) KNEE,RIGHT 3 VIEWS (RAD Detailed) CPT:94916 Proc Modifiers : RIGHT, LATERAL, Stand AP, Noonan Reason for Study: B knee pain Clinical History: Report Status: Verified Date Reported: SEP 29, 2024 Date Verified: SEP 29, 2024 Vat Tender E-Sig:/ES/ROBERTO RAWLS MD Report: 3 views COMPARISON: None No acute fracture or dislocation 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 Other: Popcorn like calcification in the central distal femur typical of enchondroma. Probable intra-articular loose bodies Impression: Tricompartmental osteoarthritis Primary Interpreting Staff: ROBERTO RAWLS MD, Radiologist (Vat Tender) /ROBERTO RAIN [facility] Sep 28, 2024 10:22 AM KNEE,LEFT, 3 VIEWS: LORETO SEO [id number] -1945 M Exm Date: SEP 28, 2024@10:22 Req Phys: STEVEN SCHMIDT Loc: -WASH PACT 3 PCP (Req'g Loc) Img Loc: [facility] SUITE Service: Unknown [address] [address] (Case [id number] COMPLETE) KNEE,LEFT, 3 VIEWS (RAD Detailed) CPT:48286 Proc Modifiers : LEFT, LATERAL, Stand AP, Noonan Reason for Study: B knee pain Clinical History: Report Status: Verified Date Reported: SEP 29, 2024 Date Verified: SEP 29, 2024 Vat Tender E-Sig:/ES/ROBERTO RAWLS MD Report: 3 views COMPARISON: None No acute fracture or dislocation 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 Other: Large intra-articular loose bodies Impression: Tricompartmental osteoarthritis Primary Interpreting Staff: ROBERTO RAWLS MD, Radiologist (Vat Tender) /ROBERTO RAIN [facility] Encounter Notes: All associated encounter notes This section contains the clinical notes associated to the Encounter. Date/Time Encounter Note(s) Provider Source Sep 29, 2024 01:35 PM PHYSICIAN LETTERS: LOCAL TITLE: TEST RESULT GENERAL LETTER [facility] STANDARD TITLE: PHYSICIAN LETTERS DATE OF NOTE: SEP 29, 2024@13:35 ENTRY DATE: SEP 29, 2024@13:36:02 AUTHOR: STEVEN SCHMIDT COSIGNER: URGENCY: STATUS: COMPLETED [facility] [address] [place] [address] SEP 29, 2024 LORETO SOE [address] [facility] [place] [place] [address] Dear Loreto Seo, I would like to update you on your recent test results. KNEE,LEFT, 3 VIEWS Exm Date: SEP 28, 2024@10:22 Req Phys: STEVEN SCHMIDT Loc: [facility]-WASH PACT 3 PCP (Req'g Loc) Img Loc: [facility] SUITE Service: Unknown [facility] [address] [place] [address] (Case [id number] COMPLETE) KNEE,LEFT, 3 VIEWS (RAD Detailed) CPT:56352 Proc Modifiers : LEFT, LATERAL, Stand AP, Noonan Reason for Study: B knee pain Clinical History: Report Status: Verified Date Reported: SEP 29, 2024 Date Verified: SEP 29, 2024 Vat Tender E-Sig:/LEOBARDO/ROBERTO RAWLS MD Report: 3 views COMPARISON: None No acute fracture or dislocation 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 Other: Large intra-articular loose bodies Impression: Tricompartmental osteoarthritis KNEE,RIGHT 3 VIEWS Exm Date: SEP 28, 2024@10:22 Req Phys: STEVEN SCHMIDT Loc: [facility]ARD-WASH PACT 3 PCP (Req'g Loc) Img Loc: [facility] SUITE Service: Unknown [facility] [address] [place] [address] (Case [id number] COMPLETE) KNEE,RIGHT 3 VIEWS (RAD Detailed) CPT:59987 Proc Modifiers : RIGHT, LATERAL, Stand AP, Noonan Reason for Study: B knee pain Clinical History: Report Status: Verified Date Reported: SEP 29, 2024 Date Verified: SEP 29, 2024 Vat Tender E-Sig:/ES/ROBERTO RAWLS MD Report: 3 views COMPARISON: None No acute fracture or dislocation 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 Other: Popcorn like calcification in the central distal femur typical of enchondroma. Probable intra-articular loose bodies Impression: Tricompartmental osteoarthritis FUTURE APPOINTMENTS: 02/17/2025 13:00 [facility]-OPTOMETRY 4 03/24/2025 14:30 [facility]-WASH PACT 3 PCP Sincerely, STEVEN SCHMIDT MSN, DISTRIBUTOR SALES MANAGER, CLINICAL CODER-BC NURSE PRACTITIONER LORETO SEO [facility] Sep 23, 2024 09:58 AM PHYSICIAN LETTERS: LOCAL TITLE: TEST RESULT GENERAL LETTER [facility] STANDARD TITLE: PHYSICIAN LETTERS DATE OF NOTE: SEP 23, 2024@09:58 ENTRY DATE: SEP 23, 2024@09:58:36 AUTHOR: STEVEN SCHMIDT EXP COSIGNER: URGENCY: STATUS: COMPLETED [facility] [address] [place] [address] SEP 23, 2024 LORETO SEO [address] [facility] [place] [place] [address] Dear Loreto Seo, I would like to update you on your recent test results. LIPID PROFILE - High cholesterol and triglycerides (lipids) are risk factors for heart disease. Your cholesterol should fall between 140 and 200, and your triglycerides levels should be less than or equal to 150. HDL is the good cholesterol and should ideally be greater than 40. LDL is the bad cholesterol and optimal levels should be less than 100 (near optimal is between 100 and 129). TRIGLYCERIDE 171 H mg/dL 09/22/2024 11:30 CHOLESTEROL 185 mg/dL 09/22/2024 11:30 HDL(New) 36 L mg/dL 09/22/2024 11:30 CALCULATED LDL 115 mg/dL 09/22/2024 11:30 No DIRECT LDL EO data found These results are abnormal. Please continue taking your cholesterol medication and work to improve your diet by avoiding fast foods, fatty foods, processed carbohydrates. Try to eat a diet rich in lean meats, fresh vegetables and colorful fruits. -------- GLUCOSE - Your blood sugar or glucose level result GLUCOSE GLUCOSE 217 H mg/dL 09/22/2024 11:30 The results are similar to previous values and not a clinical concern. non fasting -------- HEMOGLOBIN A1C - Gives us information about your diabetes (sugar or glucose) control over the past 3 months. Your target is to keep your A1C below 7 %. HGA1C 7.4 H % 09/22/2024 11:30 These results are abnormal. Your diabetes is fairly well controlled, please continue your current medications, diet, exercise and testing -------- CBC - A complete blood count (CBC) gives important information about the kinds and numbers of cells in the blood, especially red blood cells, white blood cells, and platelets. HGB 14.7 g/dL 09/22/2024 11:30 HEMATOCRIT 43.5 % (09/22/24 11:30) PLT 242 10*3/uL 09/22/2024 11:30 WHITE BLOOD COUNT 5.0 10*3/uL (09/22/24 11:30) These readings are within normal limits. B12 - Helps maintain healthy nerve cells, red blood cells, and is also needed to make DNA. B12 548 pg/mL 09/22/2024 11:30 These readings are within normal limits. -------- CHEM 7 - This is important information about the current status of your kidneys, liver, and electrolyte and acid/base balance as well as of your blood sugar and blood proteins. SODIUM 136 mEq/L 09/22/2024 11:30 POTASSIUM 4.2 mEq/L 09/22/2024 11:30 CHLORIDE 107 mEq/L 09/22/2024 11:30 UREA NITROGEN 15.7 mg/dL 09/22/2024 11:30 CREATININE 1.01 mg/dL 09/22/2024 11:30 CALCIUM 9.1 mg/dL 09/22/2024 11:30 CARBON DIOXIDE 23 mEq/L 09/22/2024 11:30 GLUCOSE 217 H mg/dL 09/22/2024 11:30 EGFR (CKD-EPI 2020) 74.7 09/22/2024 11:30 These readings are within normal limits. LIVER FUNCTION PANEL - These are tests for liver function: PROTEIN 6.5 g/dL 09/22/2024 11:30 ALBUMIN 3.5 g/dL 09/22/2024 11:30 TOTAL BILIRUBIN 0.6 mg/dL 09/22/2024 11:30 ALKALINE PHOSPHATASE 146 U/L 09/22/2024 11:30 AST/SGOT 16 U/L 09/22/2024 11:30 ALT/SGPT 16 U/L 09/22/2024 11:30 These readings are within normal limits. TSH - Thyroid-stimulating hormone (also known as TSH or thyrotropin) is a peptide hormone synthesized and secreted by thyrotrope cells in the anterior pituitary gland, which regulates the endocrine function of the thyroid gland. TSH TSH 2.029 uIU/mL 09/22/2024 11:30 These readings are within normal limits. --------- VITAMIN D - Helps promote the proper utilization of calcium and phosphorus, thereby producing proper bone maintenance. VITAMIN D, 25-HYDROXY 23.7 L ng/mL 09/22/2024 11:30 These results are abnormal. Please continue taking the vitamin D PLAN Please continue your treatment as we discussed during your visit. If you have any questions please call your case management director. I look forward to seeing you at your next clinic appointment. Thank you for choosing the [facility] for your healthcare. -------- FUTURE APPOINTMENTS: 02/17/2025 13:00 [facility]ARD-OPTOMETRY 4 03/24/2025 14:30 [facility]ARD-WASH PACT 3 PCP Sincerely, STEVEN SCHMIDT MSN, DISTRIBUTOR SALES MANAGER, CLINICAL CODER- NURSE PRACTITIONER LORETO SEO,[facility] Sep 22, 2024 11:43 AM PRIMARY CARE NOTE: LOCAL TITLE: PRIMARY CARE PROVIDER ESTABLISHED VISIT [facility] STANDARD TITLE: PRIMARY CARE NOTE DATE OF NOTE: SEP 22, 2024@11:43 ENTRY DATE: SEP 22, 2024@11:43:13 AUTHOR: STEVEN SCHMIDT EXP COSIGNER: URGENCY: STATUS: COMPLETED Patient is 79 and WHITE Self Identified Gender - Man Reason for visit:Scheduled follow-up Chief Complaint: Pt here today for follow up, c/o muscle pain in legs wondering if this is caused by Metformin, also c/o cervical dizziness. History of Present Illness: 79 year old Problem List: 1) Coronary artery disease 2) Hyperlipidemia 3) Benign essential hypertension 4) Diabetic neuropathy with neurologic complication 5) Abdominal aortic aneurysm 6) Gastroesophageal reflux disease 7) Knee pain 8) Callous character 9) Colonic fistula Immunization: ADMINISTERED Immunization Series Date Facility Reaction Info [facility] 2 05/13/2022 No Site <C> [facility] 1 01/11/2022 No Site <C> CONTRAINDICATED No data available REFUSED ======= Immunization Date Facility Info COVID-19 (PFIZER), MRNA, LNP-S, * 09/22/2024 [facility] <I> COVID-19 (PFIZER), MRNA, LNP-S, * 03/26/2024 [facility]* <I> COVID-19 (PFIZER), MRNA, LNP-S, * 09/24/2023 [facility]* <I> INFLUENZA, UNSPECIFIED FORMULATI* 09/22/2024 [facility]* <I> INFLUENZA, UNSPECIFIED FORMULATI* 03/26/2024 [facility] <I> INFLUENZA, UNSPECIFIED FORMULATI* 09/24/2023 [facility]* <I> PNEUMOCOCCAL CONJUGATE, UNSPECIF* 03/26/2024 [facility] <I> PNEUMOCOCCAL CONJUGATE, UNSPECIF* 09/24/2023 [facility] <I> PNEUMOCOCCAL CONJUGATE, UNSPECIF* 02/10/2023 [facility]* <I> TDAP 03/26/2024 [facility]* <I> TDAP 09/24/2023 [facility]* <I> TDAP 02/10/2023 [facility]* <I> <C> See the Detailed Immunizations Health Summary Component[DIM] for Comments <I> See the Detailed Immunizations Health Summary Component[DIM] for Additional Information * Value is truncated; see the Detailed Immunizations Health Summary Component[DIM] for complete text History: Service Connected: 60% Rated Disabilities: IMPAIRED HEARING (30% SC) HIP PROSTHESIS (30% SC) LIMITED FLEXION OF KNEE (10% SC) 2ND DEGREE BENTON (0% SC) LIMITED MOTION OF ARM (0% SC) TINNITUS (10% SC) Period of Service: ERA POW Status Indicated? NO BRANCH(ES) OF SERVICE: SPECIFIC YEARS OF SERVICE: LOCATION OF SERVICE: ENVIRONMENTAL EXPOSURE: Medication Review: The essential med list for review which includes the patient's active VA prescriptions and if applicable, remote VA prescriptions, non-VA prescriptions, and discontinued VA prescriptions within the last 90 days and known allergies including local and remote allergies have been reviewed. Allergies:Patient has answered NKA Active and Recently Outpatient Medications (excluding Supplies): Active Outpatient Medications Status 1) ACCU-CHEK GUIDE (GLUCOSE) TEST STRIP USE 1 STRIP FOR BLOOD ACTIVE TEST TWO TIMES PER WEEK DIRECTED *HYPOGLYCEMIA, 100 STRIPS PER YEAR* Apr 2) ASPIRIN 81MG EC TAB TAKE ONE TABLET BY MOUTH ONCE A DAY TAKE ACTIVE WITH FOOD. Indication: FOR CARDIOVASCULAR DISEASE 3) ATORVASTATIN CALCIUM 80MG TAB TAKE ONE TABLET BY MOUTH EVERY ACTIVE EVENING Indication: FOR HIGH CHOLESTEROL 4) BUSPIRONE HCL 10MG TAB TAKE ONE-HALF TABLET BY MOUTH ONCE A ACTIVE DAY DO NOT TAKE WITH GRAPEFRUIT JUICE. Indication: FOR ANXIETY 5) CARBOXYMETHYLCELLULOSE NA 0.5% OPH SOLN INSTILL 1 DROP IN ACTIVE BOTH EYES FOUR TIMES A DAY NEEDED Indication: FOR DRY EYE(S) 6) CETIRIZINE HCL 10MG TAB TAKE ONE TABLET BY MOUTH ONCE A DAY ACTIVE NEEDED Indication: FOR ALLERGY SYMPTOMS 7) CHOLECALCIF 50MCG (D3-2,000UNIT) TAB TAKE ONE TABLET BY ACTIVE MOUTH ONCE A DAY Indication: FOR VITAMIN D DEFICIENCY 8) CLOPIDOGREL BISULFATE 75MG TAB TAKE ONE TABLET BY MOUTH ONCE ACTIVE A DAY Indication: FOR ACUTE CORONARY SYNDROME 9) CYANOCOBALAMIN 1000MCG TAB TAKE ONE TABLET BY MOUTH ONCE A ACTIVE DAY Indication: FOR VITAMIN B12 SUPPLEMENTATION 10) CYCLOBENZAPRINE HCL 10MG TAB TAKE ONE TABLET BY MOUTH AT ACTIVE BEDTIME NEEDED MAY CAUSE DROWSINESS. DO NOT DRINK ALCOHOL WHILE TAKING THIS MEDICATION. Indication: FOR MUSCLE SPASM 11) DICLOFENAC NA 1% TOP GEL APPLY 4 GM TO AFFECTED AREA(S) FOUR ACTIVE TIMES A DAY NEEDED DO NOT EXCEED MORE THAN 16 GRAMS DAILY TO ANY LOWER EXTREMITY JOINT. NOT MORE THAN 8 GRAMS DAILY TO ANY UPPER EXTREMITY JOINT. MAX 32GM/DAY OVER ALL JOINTS. (MEASURE DOSE WITH RULER ATTACHED INSIDE BOX) Indication: FOR PAIN 12) DONEPEZIL HCL 10MG TAB TAKE ONE TABLET BY MOUTH AT BEDTIME ACTIVE (S) (JUST BEFORE BEDTIME) Indication: FOR ALZHEIMER DISEASE 13) EMPAGLIFLOZIN 25MG TAB TAKE ONE-HALF TABLET BY MOUTH ONCE A ACTIVE DAY Indication: FOR DIABETES 14) IRBESARTAN 75MG TAB TAKE ONE TABLET BY MOUTH ONCE A DAY ACTIVE NOTE: DOSE DECREASE Indication: FOR HIGH BLOOD PRESSURE 15) ISOSORBIDE MONONITRATE 30MG SA TAB TAKE ONE TABLET BY MOUTH ACTIVE ONCE A DAY TAKE ON EMPTY STOMACH. SWALLOW WHOLE. DO NOT CRUSH OR CHEW. Indication: FOR CHEST PAIN 16) MELATONIN 5MG CAP/TAB TAKE ONE CAP/TAB BY MOUTH AT BEDTIME ACTIVE Indication: FOR SLEEP 17) METFORMIN HCL 1000MG TAB TAKE ONE TABLET BY MOUTH ONCE A DAY ACTIVE TAKE WITH FOOD. AVOID ALCOHOL. DISCONTINUE BEFORE GETTING XRAY DYE. Indication: FOR DIABETES 18) METOPROLOL SUCCINATE 100MG SA TAB TAKE ONE-HALF TABLET BY ACTIVE MOUTH ONCE A DAY SWALLOW WHOLE, DO NOT CRUSH OR CHEW (TABLETS MAY BE CUT IN HALF). Indication: FOR HIGH BLOOD PRESSURE 19) OMEPRAZOLE 40MG EC CAP TAKE ONE CAPSULE BY MOUTH EVERY ACTIVE MORNING BEFORE A MEAL TAKE 30 MINUTES PRIOR TO FOOD. Indication: FOR GASTROESOPHAGEAL REFLUX DISEASE Data Review: HGA1C 6.6 H % 09/24/2023 13:00 ======= Lipid Panel: TRIGLYCERIDE 108 mg/dL 09/24/2023 13:00 CHOLESTEROL 151 mg/dL 09/24/2023 13:00 HDL(New) 47 mg/dL 09/24/2023 13:00 CALCULATED LDL 82 mg/dL 09/24/2023 13:00 ======= CMP: SODIUM 136 mEq/L 05/11/2024 00:40 POTASSIUM 4.3 mEq/L 05/11/2024 00:40 CHLORIDE 105 mEq/L 05/11/2024 00:40 UREA NITROGEN 17.3 mg/dL 05/11/2024 00:40 CREATININE 1.14 mg/dL 05/11/2024 00:40 CALCIUM 9.2 mg/dL 05/11/2024 00:40 PROTEIN 7.9 g/dL 03/01/2024 12:51 ALBUMIN 3.9 g/dL 03/01/2024 12:51 ALKALINE PHOSPHATASE 197 H U/L 03/01/2024 12:51 ALT/SGPT 51 H U/L 03/01/2024 12:51 AST/SGOT 21 U/L 03/01/2024 12:51 TOTAL BILIRUBIN 0.5 mg/dL 03/01/2024 12:51 CARBON DIOXIDE 21 L mEq/L 05/11/2024 00:40 GLUCOSE 236 H mg/dL 05/11/2024 00:40 EGFR (CKD-EPI 2020) 64.6 05/11/2024 00:40 ======= CBC: WBC 13.3 H 10*3/uL 05/11/2024 00:40 RBC 4.49 10*6/uL 05/11/2024 00:40 HGB 14.5 g/dL 05/11/2024 00:40 HCT 42.9 % 05/11/2024 00:40 MCV 95.5 fL 05/11/2024 00:40 MCH 32.3 pg 05/11/2024 00:40 MCHC 33.8 g/dL 05/11/2024 00:40 RDW 13.1 % 05/11/2024 00:40 PLT 211 10*3/uL 05/11/2024 00:40 MPV 10.3 fL 05/11/2024 00:40 NEUTROPHILS, AUTO % 85 % 05/11/2024 00:40 LYMPHOCYTES, AUTO % 8 % 05/11/2024 00:40 MONOCYTES, AUTO % 7 % 05/11/2024 00:40 EOSINOPHILS, AUTO % 0 % 05/11/2024 00:40 BASOPHILS, AUTO % 0 % 05/11/2024 00:40 NEUTROPHILS, ABSOLUTE 11.32 H 10*3/uL 05/11/2024 00:40 LYMPHOCYTES, ABSOLUTE 1.04 10*3/uL 05/11/2024 00:40 MONOCYTES, ABSOLUTE 0.88 H 10*3/uL 05/11/2024 00:40 EOSINOPHILS, ABSOLUTE 0.00 10*3/uL 05/11/2024 00:40 BASOPHILS, ABSOLUTE 0.02 10*3/uL 05/11/2024 00:40 ======= PSA: No PSA EO data found ======= TSH: TSH 2.136 uIU/mL 09/24/2023 13:00 ======= UA: URINE COLOR Light-Yellow 07/23/2023 11:50 APPEARANCE Clear 07/23/2023 11:50 U.PH 6.5 07/23/2023 11:50 U.BILIRUBIN Negative mg/dL 07/23/2023 11:50 U.NITRITE Negative mg/dL 07/23/2023 11:50 ======= Vitamin D: VITAMIN D, 25-HYDROXY 35.8 ng/mL 09/24/2023 13:00 ======= Micral/Creat Profile: CREATuF: 75.5 (03/26/24 11:30) M/CREAT: comment (03/26/24 11:30) MICRAL: <5.0 (03/26/24 11:30) ======= Result: Acceptable Follow-up Action: Data results reviewed with patient and/or caregiver. Review of Systems: General:No Complaints of fever, chills, malaise, fatigue, night sweats, weight gain, weight loss, swollen glands, temp intolerance. Integumentary (skin): No complaints of diaphorectic, bruise, rash, lesions Ear, Nose, Throat: No complaints of blurred vision, glaucoma, cataracts, headache, syncope, dizziness, vertigo, rhinitis, epistaxis, congestion, sinus pain, sore neck, hoarseness, sore throat, oral lesions, earache, difficulty hearing, hearing loss, tinnitus. Respiratory: No complaints of dyspnea, wheezing, hemoptysis, cough. Cardiovascular: No complaints of SOB, cough, wheezing, chest pain, heart murmur, hemoptysis, orthopnea/PND, palpatations, pedal edema, claudication. Gastrointestinal: No complaints of weight change, poor appetite, heartburn, nausea, vomiting, anorexia, abdominal pain, dysphagia, distention, cancer, constipation, diarrhea, change in bowel habits, reflux, ulcer, food, intolerance, melana, bloody stools, hemorrhoids. Urinary: No complaints of hematuria, nocturia, polyuria, dysuria, nocturia, pain/buring on urination, hesitancy, urinary retention, incontinence. Musculoskeletal: No complaints of weakness, pain, stiffness, back pain, joint pain, arthritis, edema, DVT, claudification, gout. Neurological: No complaints of weakness, tremors, irritable, sleep disturbance, memory loss, headache, unsteady, lethargic, dizziness, syncope, paralysis, numbness, seizures, impaired speech, depression, alcoholism, mood changes, post-tramatic stress disorder, suicidal thoughts VITAL SIGNS DETAILED DISPLAY Date Vital Measurement Qualifiers 09/22/2024 11:38 Temp F (C) 97.5 (36.4) Pulse 58 Respir 18 BP 139/74 Ht in (cm) 72 (182.88) Wt lbs (kg)[BMI] 231.8 (105.14)[32*] Pain 4 POx (L/Min)(%) 98 VITAL SIGNS SELECTED No selection items chosen for this component. General: WD, WN in NAD, pleasant affect Skin: no lesions or rashes noted. HEENT: NC/AT, PERRL, EOMI, no scleral icterus, TMs intact, posterior pharynx is clear, no tonsillar adenopathy Neck: Supple, no cervical ARTHUR, no thyromegaly or goiters palpated. Lungs: CTA bilat, no W/R/R Heart: RRR, nl S1/S2, no murmurs, no S3/S4 gallops. Abdomen: Soft, NT/ND. No HSM or masses palpated. Musculoskeletal: 2+ deep tendon reflexes bilaterally, 5/5 motor and sensory intact of UE/LE Back: Normal curvature and mobility. No CVA tenderness. Extremities: No edema, pedal pulses intact Assessment/Plan: 1. Healthcare maintenance- labs ordered 2. HTN/Dizziness- improving 3. 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 Reassured pt that muscle loss not caused by Metformin 4. Thoracic Aortic Aneurysm- Pt reports last check was 4.7, followed by Dr. Coffey. Has appt later this month 5. GERD- pt on omeprazole, cont 6. CAD/HLD- Followed by Dr. Coffey 7. B knee pain- completed PT, now in gerofit. Cont diclofenac gel. Ortho consult placed 8. Anxiety- followed by . RTC: 6 months Time spent on date of visit including face to face time, data review, and chartin min CLINICAL REMINDERS COMPLETED Sexual Orientation - CP,L,N,P,PH,PS,S,U: The patient thinks of their sexual orientation as: Prefer not to answer RHS Screen - VS: RHS Screen Session Format: Face to Face Environmental Check Screening was not completed at this time due to: Other: denies abuse Influenza Immunization - L,N,P,PH,U: Deferral / Refusal The patient declines to receive the recommended dose of seasonal influenza vaccine. Immunization: INFLUENZA, UNSPECIFIED FORMULATION Refusal Reason: PATIENT DECISION Patient refuses all immunization(s) in the FLU group Date Documented: 09/22/24 11:47 PAVE Foot Check - L,N,P,PH,PO,PT,U: Patient declined limb care exam. The patient was advised the [place] mandates all patients with diabetes mellitus, end stage renal disease, peripheral vascular disease, or sensory neuropathy should have a complete foot check completed annually. This includes a visual exam of the skin, pedal pulses and a sensory exam. Patients with any abnormality noted during the foot check should be referred to a specialist. Pneumococcal Conjugate Vaccine (PCV15/PCV20/PCV21) - L,N,P,PH,U: Refuses PCV vaccine Immunization: PNEUMOCOCCAL CONJUGATE, UNSPECIFIED FORMULATION Refusal Reason: PATIENT DECISION Patient refuses all immunization(s) in the PneumoPCV group Date Documented: 09/22/24 11:47 Prior Approval/Non-formulary Drug: MEDICATION USE EVALUATION Tdap Immunization - L,N,P,PH,U: The patient declines to receive the recommended dose of Tdap vaccine. Immunization: TDAP Refusal Reason: PATIENT DECISION Patient refuses all immunization(s) in the TDAP group Date Documented: 09/22/24 11:47 /leobardo/ STEVEN SCHMIDT MSN, DISTRIBUTOR SALES MANAGER, CLINICAL CODER-BC NURSE PRACTITIONER Signed: 09/22/2024 12:02 STEVEN SCHMIDT CB[facility] Sep 22, 2024 11:39 AM NURSING NOTE: LOCAL TITLE: V15 PACT FACE TO FACE NOTE STL STANDARD TITLE: NURSING NOTE DATE OF NOTE: SEP 22, 2024@11:39 ENTRY DATE: SEP 22, 2024@11:39:25 AUTHOR: ZEINAB MARISCAL COSIGNER: URGENCY: STATUS: COMPLETED V15 PACT FACE TO FACE NOTE STL Has ADDENDA Provider Visit: Patient Identifiers : Full Name Date of Reason for visit: Established Follow-Up Mode of Arrival: Ambulatory Allergy Review: Patient has answered NKA Allergy list reviewed and remains current. Recent Vital Signs: Temperature: 97.5 F [36.4 C] (09/22/2024 11:38) Pulse: 58 (09/22/2024 11:38) Respiration: 18 (09/22/2024 11:38) B/P: 139/74 (09/22/2024 11:38) Pain: 4 (09/22/2024 11:38) Wt: 231.8 lb [105.14 kg] (09/22/2024 11:38) Ht: 72 in [182.9 cm] (09/22/2024 11:38) BMI: 31.5 POX: 98% (09/22/2024 11:38) Would you like to discuss any personal problem, family problem, alcohol use, drug use, or a mental or emotional illness? No Contact provided Primary Care phone number and encouraged to call if any questions or concerns. Review that after hours nurse line ext.[phone] and emergency room are available 13/01 for patient use. Contact verbalized good understanding. COVID-19 Immunization - L,N,P,PH,U: Refused Pfizer Monovalent COVID-19 vaccine Immunization: COVID-19 (PFIZER), MRNA, LNP-S, PF, BEKAH-SUCROSE, 30 MCG/0.3 ML (AGES 12+ YEARS) Refusal Reason: PATIENT DECISION Patient refuses all immunization(s) in the COVID-19 group Date Documented: 09/22/24 11:40 Influenza Immunization - L,N,P,PH,U: Deferral / Refusal The patient declines to receive the recommended dose of seasonal influenza vaccine. Immunization: INFLUENZA, UNSPECIFIED FORMULATION Refusal Reason: PATIENT DECISION Patient refuses all immunization(s) in the FLU group Date Documented: 09/22/24 11:40 PC [facility] - PHP MAP: PERSONAL HEALTH PLAN INVENTORY & MAP [facility]'s Response: Family /leobardo/ ZEINAB MARISCAL LPN LICENSED PRACTICAL NURSE Signed: 09/22/2024 11:41 09/22/2024 ADDENDUM STATUS: COMPLETED Blood drawn from left AC x 1 attempt. Patient tolerated procedure without difficulty. Specimens labeled and sent to lab. /leobardo/ ZEINAB MARISCAL LPN LICENSED PRACTICAL NURSE Signed: 09/22/2024 11:[address] [facility]
--- OUTSIDE RECORDS SUMMARY | 2025-01-21 13:00 | XMS_ITS | Encounter Summary ---
Author Name [facility] [place] [facility] [place] [facility] Address [address] [place] [address] Care Team Providers Care Electrical Assembly Technician Name Role Phone KARON GARCIA Primary Care [...] B EXC) MAXIMO PALMA Jul 22, 2023 [id number] GABBI,GE DELONTE PATIENT [employer] PREFERRED PROVIDER ORGANIZAT ION (PPO) MAXIMO PALMA Apr 22, 2023 [id number] [phone] GABBIRUSSELL RUSHTrudy PATIENT [employer] PREFERRED PROVIDER ORGANIZAT ION (PPO) MAXIMO PALMA Jun 23, 2014 [id number] RUSSELL SEOTrudy PATIENT [employer] PHARMACY PRESCRIPT ION NONE Feb 11, 2017 NONE [id number] RUSSELL SEO PATIENT [employer] PHARMACY PRESCRIPT ION NONE Feb 11, 2017 NONE [id number] RUSSELL SEO PATIENT [employer] RX PRESCRIPT ION RX PLAN Jun 23, 2021 [id number] RUSSELL SEO PATIENT [employer] RX PRESCRIPT ION RX PLAN Jun 23, 2021 [id number] RUSSELL SEO PATIENT [employer] RX PRESCRIPT ION FEHBP Jun 23, 2014 [id number] RUSSELL SEO PATIENT AETNA [facility] PREFERRED PROVIDER ORGANIZAT ION (PPO) MAXIMO PALMA Jun 23, 2014 [id number] RUSSELL SEO PATIENT MEDICARE (WNR) MEDICARE () PART B May 23, 2008 PART B [id number] RUSSELL SEO PATIENT MEDICARE (WNR) MEDICARE () PART B May 23, 2008 PART B [id number] RUSSELL SEO PATIENT MEDICARE (WNR) MEDICARE () PART A Apr 23, 2008 PART A [id number] RUSSELL SEO PATIENT MEDICARE (WNR) MEDICARE () PART A Apr 23, 2008 PART A [id number] RUSSELL SEO PATIENT MEDICARE (WNR) MEDICARE () PART A Apr 23, 2008 PART A [id number] [phone] RUSSELL SEOD PATIENT MEDICARE (WNR) MEDICARE () PART B Apr 23, 2008 PART B [id number] [phone] RUSSELL SEO PATIENT Selected Encounter This section includes the information on record at [place] for the Encounter. Date/Time Encounter Type Encounter Description Reason Provider Source Jun 21, 2024 10:30 AM PT EDUCATION NOC [facility] ICD-10-CM Z72.3 Lack of physical exercise MI WINTER IHE Encounter Template Text not used by [facility] Assessments - Encounter Diagnoses This section includes the primary and secondary diagnoses documented for the Encounter. Date/Time Primary/Secondary Diagnosis Diagnosis Name Provider Source Jun 29, 2024 03:22 PM PRIMARY Lack of physical exercise MI WINTER [facility] Plan of Treatment: Future Appointments (+ 6 months) and Future Tests (+/- 45 days) The Plan of Treatment section includes future care activities for the patient from all [place] treatmentfacilities. This section includes future appointments and future orders which are active, pending or scheduled. Future Appointments This section includes appointments that were scheduled to occur 6 months from the date of the Encounter, up to a maximum of 20 appointments. The data comes from all [place] treatment facilities. Appointment Date/Time Appointment Type Appointme nt Facility Name Aug 18, 2024 11:41 AM AMBULATORY - MEDICINE EMERITA Daniel. [facility] Aug 19, 2024 08:30 AM AMBULATORY - NONE ROMERO Daniel. [facility] Sep 22, 2024 11:30 AM AMBULATORY - MEDICINE [facility] November 09, 2024 01:30 PM AMBULATORY - SURGERY [facility] Dec 07, 2024 11:00 AM AMBULATORY - MEDICINE [facility] Advance Directives: All historical and current Section Date Range: From patient's date of to the date document was created. This section includes ALL of a patient's completed or amended [place] Advance and Rescinded Directives. The entries below indicate that a directive exists for the patient, but an actual copy is not included with this document. The data comes from all [place] facilities. Date Advance Directives Provider Source Jan 14, 2022 ADVANCE DIRECTIVE DISCUSSION SHEA WINTER [facility] Encounter Notes: All associated encounter notes This section contains the clinical notes associated to the Encounter. Date/Time Encounter Note(s) Provider Source Jun 21, 2024 10:30 AM CARE COORDINATION HOME TELEHEALTH VIDEO VISIT NOTE: LOCAL TITLE: GEROFIT VVC SUPERVISED EXERCISE NOTE ST STANDARD TITLE: CARE COORDINATION HOME TELEHEALTH VIDEO VISIT NO DATE OF NOTE: JUN 21, 2024@10:30 ENTRY DATE: JUN 21, 2024@11:16:13 AUTHOR: [place] WINTER EXP COSIGNER: URGENCY: STATUS: COMPLETED Gerofit Telehealth Remote Supervised Exercise Note Cut Off Provided informed consent to receive treatment via Telehealth. mailed and has been made verbally aware of [facility] [place] practices. participated remotely in the Gerofit exercise program today through [employer]. Activities were focused on progression of their individual exercise prescription (cardiorespiratory fitness training, strength training, etc.) and group based exercise sessions to include, but not limited to: flexibility training, balance training & functional circuit training. Exercise class was instructed Roberta Love and Mi Winter observed class for safety monitoring. Any questions/concerns were addressed with the patient. Modifications were made to programming as appropriate to suit Veterans individual needs, preferences, and whole health concerns. Education provided during class: Purpose of warm-up, cooldown, RPE, fall prevention, appropriate intensity levels, proper form for exercises, encouraging out of class exercise, activity recommendations for older adults, appropriate response to exercise, how to progress/modify Total Duration (minutes) for session: 90 Address: [address] [place] [address] [place] [address] Contact Information: , Rosemary Seo [phone] /es/ Mi PATEL Nut Chopper Signed: 06/21/2024 11:28 MI WINTER [facility]
--- OUTSIDE RECORDS SUMMARY | 2025-01-21 13:00 | XMS_ITS | Clinical Summary ---
Author Organization [facility] Address [address] [place] [address] Care Team Providers Care Garment Fitter Name Role Phone Pauly OWEN MD, Yayo Serra Primary Care Provider Pablito Hinton MD Unavailable [phone] LongoPaul TRACK PRODUCTION ENGINEER, EXHIBITS COORDINATOR Unavailable Allergies Active Allergy Reactions Criticality Noted Date Comments Yaw Inhibitors Other (see Comments) cough Simvastatin Other (see Comments) 11/12/2013 Pt states caused a little cough Medications Aspirin (ASPIR-81 PO) Take 1 Tab by mouth daily. Active Meloxicam 15 MG PO TABS Take 15 mg by mouth daily. Active metFORMIN (GLUCOPHAGE) 500 MG Tablet Take 1,000 mg by mouth daily. Active irbesartan (AVAPRO) 300 MG Tablet TAKE 1 TABLET DAILY 90 Tab 3 01/03/20 20 Active donepezil (ARICEPT) 5 MG Tablet Take 1 Tab by mouth nightly. 03/29/20 20 Active gabapentin (NEURONTIN) 100 MG Capsule Take 1 Capsule by mouth 3 times daily. 05/17/20 20 Active Empagliflozin (JARDIANCE) 10 MG Tablet Take 1 Tab by mouth daily. 06/04/20 19 Active omeprazole (PriLOSEC) 40 MG CAPSULE DELAYED RELEASE Take 40 mg by mouth daily. Active traMADol (ULTRAM) 50 MG Tablet Take 50 mg by mouth every 6 hours as needed. Active ketorolac (TORADOL) 10 MG Tablet Take 10 mg by mouth every 4 hours as needed. Active metoprolol Succinate (TOPROL-XL) 50 MG TABLET SR 24 HR Take 1 Tablet by mouth daily. 90 Tablet 3 02/28/20 21 Active isosorbide mononitrate (IMDUR) 30 MG TABLET SR 24 HR Take 1 Tablet by mouth daily. 90 Tablet 3 02/28/20 21 Active HYDROcodone-acetaminophe n (NORCO) 5-325 MG Tablet Take 1 Tablet by mouth every 4 hours as needed. Active atorvastatin (LIPITOR) 80 MG TabletIndications:Pure hypercholesterolemia Take 1 Tablet by mouth daily. PLEASE HAVE LAB WORK DONE FOR FURTHER REFILLS 90 Tablet 3 07/12/19 22 Active clopidogrel (PLAVIX) 75 MG Tablet TAKE 1 TABLET DAILY 90 Tablet 3 09/20/19 22 Active Active Problems Problem Noted Date Diagnosed Date S/p bare metal coronary artery stent 10/19/2015 Overview (10/19/2015): 12/01/2002 Mid LAD 3.0x23 mm Zeta Diabetes type 2, controlled 10/19/2015 CAD (coronary artery disease) Overview (08/03/2012): Cardiac CTA: EF 72%; patent stents to RCA and LAD; jailed PDA; 25-50% prox LAD - Cath: re-Stent LAD and Stent to ostial PDA - Cath: Stent-LAD + diffuse Cx disease - S/P Anterior AMI - TM Nuc: EF 67%; 8.3 METS; no ischemia - 07/05' - Red TM Nuc: EF 70%; 10.3 METS; no ischemia - TM Nuc: EF 61%; infpost and antsept ischemia - Benign essential hypertension Pure hypercholesterolemia Resolved Problems Problem Noted Date Diagnosed Date Resolved Date Myocardial infarction, anterior wall 04/09/2010 Immunizations Immunization Administration Dates Next Due Influenza Vaccine greater than 3 yrs 04/21/2018, 06/23/2012 Pneumococcal Vaccine - 13 Valent 04/01/2019 Pneumococcal Vaccine Adult - 23 Valent 1 Family History Medical History Relation Name Comments Kidney Disease Father Relation Name Status Comments Father (Age 84) Renal fail ure Mother (Age 87) Old age Social History Tobacco Use Types Packs/Day Years Used Date Smoking Tobacco: Never Smokeless Tobacco: Never Alcohol Use Standard Drinks/Week Comments No 0 (1 standard drink = 0.6 oz pur e alcohol) Sex and Gender Information Value Date Recorded Sex Assigned at Not on file Legal Sex Male 3:03 AM SENIOR PENSIONS ADMINISTRATOR Gender Identity Not on file Sexual Orientation Not on file Occupation Industry Job Start Date Job End Date Retired Not on file Not on file Not on file Last Filed Vital Signs Vital Sign Reading Time Taken Comments Blood Pressure 124/50 07/12/2021 10:33 AM SENIOR PENSIONS ADMINISTRATOR Pulse 56 07/12/2021 10:33 AM SENIOR PENSIONS ADMINISTRATOR Temperature - - Respiratory Rate 16 07/12/2021 10:33 AM SENIOR PENSIONS ADMINISTRATOR Oxygen Saturation - - Inhaled Oxygen Concentration - - Weight 105.7 kg (233 lb) 07/12/2021 10:33 AM SENIOR PENSIONS ADMINISTRATOR Height 182.9 cm (6') 07/12/2021 10:33 AM SENIOR PENSIONS ADMINISTRATOR Body Mass Index 31.6 07/12/2021 10:33 AM SENIOR PENSIONS ADMINISTRATOR Plan of Treatment Health Maintenance Due Date Last Done Comments Diabetes: Foot Exam 1945 Hepatitis C Virus (HCV) Screening 1945 Zoster Immunization (1 of 2) 1993 Respiratory Syncytial Virus (RSV) Immunization (Adult) (1 - 1-dose 75+ series) 2018 Diabetes: Nephropathy Screening 11/05/2019 11/04/2018, 07/20/2018, 01/12/2018, Additional history exists Diabetes: Eye Exam 07/18/2021 07/18/2020 Diabetes: Hemoglobin A1c 01/27/2022 022, 07/30/2021, 12/14/2020, Additional history exists SARS-COV-2 Immunization ( season) 2024 08/10/2020, 07/13/2020 Influenza Immunization (#1) 02/21/202512/2019, 03/23/2020, 04/01/2019, Additional history exists DTaP/Tdap/Td Immunization Discontinued 02/03/2012, TdaP Immunization Completed 02/03/2012 Pneumococcal Immunization (50+ years) Completed 01/24/2021, 04/01/2019, 06/23/2018 Pneumococcal Immunization Combined Discontinued 01/24/2021, 04/01/2019, 06/23/2018 Hepatitis B Immunization Aged Out No longer eligible based on patient's age to complete this topic Human Papillomavirus (HPV) Immunization Aged Out No longer eligible based on patient's age to complete this topic Meningococcal Immunization (ACWY) Aged Out No longer eligible based on patient's age to complete this topic Rotavirus Immunization Aged Out No lo nger eligible based on patient's age to complete this topic Procedures Procedure Name Priority Date/Time Associated Diagnosis Comments CMP (COMPREHENSIVE METABOLIC PANEL) Routine 11/04/2018 HEMOGLOBIN A1C W/ ESTIMATED GLUCOSE Routine 11/04/2018 from Last 3 Months or Most Recently Relevant to Health Maintenance Results * HEMOGLOBIN A1C W/ ESTIMATED GLUCOSE (11/04/2018) HGB-A1C 7.0 % Blood specimen (specimen) 11/04/2018 us Not On File Provider CHEMISTRY ORDERABLES Final Result * CMP (COMPREHENSIVE METABOLIC PANEL) (11/04/2018) Blood specimen (specimen) us Not On File Provider CHEMISTRY ORDERABLES Final Result from Last 3 Months or Most Recently Relevant to Health [place] [id number] [employer] on file Care Teams Garment Fitter Relationship Specialty Start Date End Date Yayo Coats II, MD [address] [place] [address] PCP - General 12/17/09 Pablito Hinton MD [address] [place] [address] Consulting Physician Interventional Cardiology 10/16/15 Paul Longo, TRACK PRODUCTION ENGINEER, EXHIBITS COORDINATOR [address] [place] [address] Nurse Practitioner Advanced Practice Nurse 09/14/20
--- OUTSIDE RECORDS SUMMARY | 2025-01-21 13:01 | XMS_ITS | Encounter Summary ---
Author Name [facility] Organization [facility] Address [address] [place] [address] Care Team Providers Care Tumbling And Rolling Supervisor Name Role Phone KARON GARCIA Primary Care [...] B EXC) MAXIMO PALMA Jul 22, 2023 [id number] GABBI,GE DELONTE PATIENT [employer] PREFERRED PROVIDER ORGANIZAT ION (PPO) MAXIMO PALMA Apr 22, 2023 [id number] GABBIRUSSELL RUSHTrudy PATIENT [employer] PREFERRED PROVIDER ORGANIZAT ION (PPO) MAXIMO PALMA Jun 23, 2014 [id number] RUSSELL SEOTrudy PATIENT AETNA PHARMACY PRESCRIPT ION NONE Feb 11, 2017 NONE [id number] RUSSELL SEO PATIENT [employer]ETNA PHARMACY PRESCRIPT ION NONE Feb 11, 2017 NONE [id number] RUSSELL SEO PATIENT [employer]ET[employer] RX PRESCRIPT ION RX PLAN Jun 23, 2021 [id number] RUSSELL SEO PATIENT AETNA RX PRESCRIPT ION RX PLAN Jun 23, 2021 [id number] RUSSELL SEO PATIENT AETNA RX PRESCRIPT ION FEHBP Jun 23, 2014 [id number] RUSSELL SEO PATIENT AETNA [facility] PREFERRED PROVIDER ORGANIZAT ION (PPO) MAXIMO PALMA Jun 23, 2014 [id number] RUSSELL SEO PATIENT MEDICARE (WNR) MEDICARE () PART B May 23, 2008 PART B [id number] RUSSELL SEO PATIENT MEDICARE (WNR) MEDICARE () PART B May 23, 2008 PART B [id number] RUSSELL SEO PATIENT MEDICARE (WNR) MEDICARE () PART A Apr 23, 2008 PART A [id number] RUSSELL SEO PATIENT MEDICARE (WNR) MEDICARE () PART A Apr 23, 2008 PART A [id number] RUSSELL SEO PATIENT MEDICARE (WNR) MEDICARE () PART A Apr 23, 2008 PART A [id number] [phone] RUSSELL SEO PATIENT MEDICARE (WNR) MEDICARE () PART B Apr 23, 2008 PART B [id number] [phone] RUSSELL SEO PATIENT Selected Encounter This section includes the information on record at MD for the Encounter. Date/Time Encounter Type Encounter Description Reason Provider Source Mar 25, 2024 10:30 AM PT EDUCATION NOC [facility] ICD-10-CM Z72.3 Lack of physical exercise JESSICA CARDENAS Encounter Template Text not used by MD Assessments - Encounter Diagnoses This section includes the primary and secondary diagnoses documented for the Encounter. Date/Time Primary/Secondary Diagnosis Diagnosis Name Provider Source Apr 13, 2024 09:15 AM PRIMARY Lack of physical exercise MIRIAM ARCHER [facility] Plan of Treatment: Future Appointments (+ 6 months) and Future Tests (+/- 45 days) The Plan of Treatment section includes future care activities for the [facility] This section includes future appointments and future orders which are active, pending or scheduled. Future Appointments This section includes appointments that were scheduled to occur 6 months from the date of the Encounter, up to a maximum of 20 appointments. The data comes from all [facility]. Appointment Date/Time Appointment Type Appointme nt Facility Name Mar 26, 2024 10:30 AM AMBULATORY - MEDICINE [facility] Apr 12, 2024 01:00 PM [facility] Apr 14, 2024 02:00 PM [facility]ATORY - MEDICINE [facility] May 06, 2024 11:00 AM AMBULATORY - MEDICINE [facility] May 10, 2024 06:00 AM AMBULATORY - NONE [facility] May 12, 2024 01:00 PM AMBULATORY - MEDICINE [facility] May 19, 2024 01:30 PM AMBULATORY - SURGERY [facility] May 31, 2024 10:00 AM AMBULATORY - NONE [facility] Aug 18, 2024 11:41 AM AMBULATORY - MEDICINE EMERITA Samuels [facility] Aug 19, 2024 08:30 AM AMBULATORY - NONE ROMERO Samuels [facility] Sep 22, 2024 11:30 AM AMBULATORY - MEDICINE [facility] Active, Pending, and Scheduled Orders This section includes a listing of several types of active, pending, and scheduled orders, including clinic medications orders, diagnostic test orders, procedure orders and consult orders; where the start date of the order is 45 days before the date of the Encounter or 45 days after the date of theEncounter. The data comes from all [facility]. Test Date/Time Test Type Test Details Facility Name Mar 01, 2024 12:00 AM Laboratory - Blood Bank Order TYPE & SCREEN - LAB BLOOD SP [facility] Mar 26, 2024 12:00 AM Laboratory - Chemi stry Order CYSTATIN C EGFR PANELS (STL-PB-MA) GREEN LI/HEP BLD/PLAS [facility] Lab Results: +/- 30 days of the [...] Type Comment Mar 26, 2024 11:[address] [facility] MICRAL/CREAT PROFILE (STL) URINE Specimen Typ e: URINE Comment: uALB/CREAT Ratio Unable to be calculated Unable to calculate due to Microalbumin < 5.0 mg/L Ordering Provider: STEVEN SCHMIDT Report Released Date/Time: Mar 26, 2024 08:32 AM Reporting Lab: [address] [address] Performing Lab: [address] [address] URINE ALBUMIN (PB-STL) <5.0 mg/L uACR (STL) comment mg/g 0-29 CREATININE URINE/OTHERS 75.5 mg/dL 63-16 6 Mar 01, 2024 12:51 PM [facility] PT/INR NEW (L-MA) PLASMA Specimen Type: PLAS MA No comment entered. Ordering Provider: LEISA MATHIS Report Released Date/Time: Mar 01, 2024 12:16 PM Reporting Lab: [address] [address] Performing Lab: [address] [address] PROTIME 12.7 s H 9.4-12.5 INR VALUE 1.1 {INR} Mar 01, 2024 12:[address] [facility] CBC BLOOD Specimen Type: BLOOD No comment entered. Ordering Provider: LEISA MATHIS Report Released Date/Time: Mar 01, 2024 12:16 PM Reporting Lab: [facility] [address] [facility] [address] Performing Lab: [address] [address] WBC 9.4 10*3/uL 3.6-11.2 RBC 4.90 10*6/uL [...] 0.60 BASOPHILS, ABSOLUTE 0.06 10*3/uL 0.00-0. 20 Mar 01, 2024 12:51 PM [facility] COMPREHENSIVE METABOLIC PANEL PLASMA Specimen Type: PLASMA Comment: No hemolysis noted. Ordering Provider: LEISA MATHIS Report Released Date/Time: Mar 01, 2024 12:16 PM Reporting Lab: [facility] [address] [facility] [address] Performing Lab: [address] [address] CREATININE 1.37 mg/dL H 0.7-1.3 UREA NITROGEN [...] H 8-40 EGFR (CKD-EPI 2020) 52.2 >60 Advance Directives: All historical and current Section Date Range: From patient's date of to the date document was created. This section includes ALL of a patient's completed or amended MD Advance and Rescinded Directives. The entries below indicate that a directive exists for the patient, but an actual copy is not included with this document. The data comes from all MD facilities. Date Advance Directives Provider Source Jan 14, 2022 ADVANCE DIRECTIVE DISCUSSION SHEA WINTER [facility] Radiology Reports: +/- 30 [...] the Encounter. The data comes from all MD treatment facilities. Date/Time Radiology Report Provider Source Mar 01, 2024 01:21 PM CHEST X-RAY, 2 VIE WS: LORETO SEO [phone] [facility] M Ex Date: MAR 01, 2024@13:21 Req Phys: ALY GO Loc: [facility] (Req Img Loc: [facility] SUITE Service: [address] [address] (Case [id number] COMPLETE) CHEST X-RAY, 2 VIEWS (RAD Detailed) CPT:15226 Reason for Study: preop Clinical History: Report Status: Verified Date Reported: MAR 01, 2024 Date Verified: MAR 01, 2024 Haul Truck Driver E-Sig:/ES/Christopher Dumont MD. FACR. Report: History: preop. [...] Interpreting Staff: Christopher Dumont MD. FACR, Neuroradiologist (Haul Truck Driver) /[facility] Encounter Notes: All associated encounter notes This section contains the clinical notes associated to the Encounter. Date/Time Encounter Note(s) Provider Source Mar 25, 2024 10:30 AM CARE COORDINATION HOME TELEHEALTH VIDEO VISIT NOTE: LOCAL TITLE: GEROFIT VVC SUPERVISED EXERCISE NOTE [facility] STANDARD TITLE: CARE COORDINATION HOME TELEHEALTH VIDEO VISIT NO DATE OF NOTE: MAR 25, 2024@10:30 ENTRY DATE: MAR 25, 2024@16:19:27 AUTHOR: MIRIAM ARCHER EXP COSIGNER: URGENCY: STATUS: COMPLETED Gerofit Telehealth Remote Supervised Exercise Note [place] Provided informed consent to receive treatment via Telehealth. [place] mailed and has been made verbally aware of Telehealth Group MD practices. participated remotely in the Gerofit exercise program today through [employer]. Activities were focused on progression of their individual exercise prescription (cardiorespiratory fitness training, strength training, etc.) and group based exercise sessions to include, but not limited to: flexibility training, balance training & functional circuit training. Exercise class was instructed by Monie Cardenas DPT and Miriam Archer DPT observed class for safety monitoring. Any questions/concerns [...] Total Duration (minutes) for session: 90 Address: [address] [place] [address] [place] [address] Contact Information: Rosemary [phone] /es/ MIRIAM ARCHER PT, SHAKEELT, OCS TELE PAIN PHYSICAL THERAPIST Signed: 03/25/2024 16:29 MIRIAM ARCHER [facility]
--- OUTSIDE RECORDS SUMMARY | 2025-01-21 13:01 | XMS_ITS | Encounter Summary ---
Author Organization [facility] Address [address] [place] [address] Care Team Providers Care Business Representative Name Role Phone Unavailable Primary Care Provider Unavailabl e Reason for Referral * Eval and Treat (Routine) - Open Specialty Diagnoses / Procedures Referred By Edmundo antonio Referred To Contact Diagnoses Postoperative visit Aftercare following right knee joint replacement surgery Presence of right artificial knee joint S/P robot-assisted surgical procedure Yayo Degroot MD [address] [place] [address] Phone: tel: fax: [facility] [place] [address] [address] Phone: tel: fax: Referral ID Status Reason Start Date Expiration Date Visits Re quested Visits Authorized [id number] Open 01/20/2025 01/20/2026 8 8 Scheduling Instructions Please call patient to schedule PT Appointments Reason for Visit * Reason Comments Post-op Visit 01/05/25 Robotic assi sted right TKA (2 weeks) * Eval and Treat (Routine) - Open Specialty Diagnoses / Procedures Referred By Edmundo antonio Referred To Contact Orthopedic Surgery Diagnoses Bilateral knee pain Procedures [place] OFFICE/OUTPATIENT NEW MODERATE MDM 45 MINUTES [facility] [address] [place] [address] Phone: tel: fax: Yayo Degroot MD [address] [place] [address] Phone: tel: fax: Referral ID Status Reason Start Date Expiration Date Visits Re quested Visits Authorized [id number] Open 10/08/2024 05/08/[phone] Encounter Details Date Type Department Care Team (Late st Contact Info) Description 01/20/2025 9:20 AM CDT Office Visit [facility] Orthopedic Surgery - [address] [place] [phone] Yayo Degroot MD [address] [place] [id number] Postoperative visit (Primary Dx); Aftercare following right knee joint replacement surgery; Presence of right artificial knee joint; S/P robot-assisted surgical procedure Social History Tobacco Use Types Packs/Day Years Used Date Smoking Tobacco: Never Smokeless Tobacco: Never Alcohol Use Standard Drinks/Week Comments Not Currently 0 (1 standard drink = 0.6 oz pur e alcohol) Sex and Gender Information Value Date Recorded Sex Assigned at Not on file Legal Sex Male 1:26 PM CDT Gender Identity Not on file Sexual Orientation Not on file documented as of this encounter Last Filed Vital Signs Vital Sign Reading Time Taken Comments Blood Pressure 81/40 01/20/2025 8:59 AM CDT Pulse - - Temperature - - Respiratory Rate - - Oxygen Saturation - - Inhaled Oxygen Concentration - - Weight 107 kg (236 lb) 01/20/2025 8:59 AM CDT Height 182.9 cm (6') 01/20/2025 8:59 AM CDT Body Mass Index 32.01 01/20/2025 8:59 AM CDT documented in this encounter Progress Notes * Yayo Degroot MD - 01/20/2025 9:20 AM CDT Postop Clinic Note Date of surgery: 01/05/25 (2 weeks ago) Procedure: Robotic assisted right TKA Patient history: Lanre Rutledge is a 79 y.o. male type II Diabetic who presents for recheck 2 weeks after undergoing Robotic assisted right TKA on 01/05/25. Patient is doing well, no complaints. Pain level is mild. There are not wound concerns or problems. Pt denies fever/chills, nausea/vomiting or numbness/tingling. He comes in FWB with a straight cane accompanied by his daughter. He is currently dizzy and feeling wobbly. BLOOD PRESSURE SCREENING BP: (!) 81/40 (01/20/25 0859) BP is normal or controlled. TOBACCO COUNSELING He is not a tobacco/nicotine user. Exam: Appearance: alert, well appearing, and in no distress Gait: Wheelchair. He is using a wheelchair because he is lightheaded. He usually uses a cane at this point in time. Wound(s): Right anterior knee TKA wound margins intact and healing well. No signs of infection. Motion: He lacks the last 5 degrees of right knee extension. Flexion is to 90 degrees today. Neurovascular: Grossly intact throughout the right lower extremity. Xray: 2 view x-rays of the right knee that were taken immediately postoperatively in the recovery room were reviewed with the patient and his family at this time. These x-rays reveal a total knee arthroplasty in satisfactory position in both views. Plan: RTC: 6 week(s) without xray Physical Therapy discussed and ordered, asking the outpatient therapist to continue to work with him on the performance of passive and active right knee range of motion exercises as well as assistinghim with weaning from his assist device as his strength and endurance and balance improves. I also again reviewed passive knee flexion and extension exercises that I would like him to perform at least 3 times a day on his own as well. I also encouraged him to institute twice daily scar massage to his wound. He will continue with his twice daily baby aspirin for 2 more weeks. He will then return to taking the baby aspirin once a day. He also is continuing to take his Plavix. Due to his lightheadedness, his nuclear control room operator was contacted and has agreed to see him in his office upstairs after he leaves our office today. This dictation was completed using [employer] Naturally Speaking Software. Head Track Coach variances may occur. documented in this encounter Plan of Treatment Upcoming Encounters Date Type Department Care Team (Late st Contact Info) Description 03/03/2025 10:30 AM CDT Office Visit [facility] Orthopedic Surgery - [address] [place] [phone] Yayo Degroot MD [address] [place], [place] [phone] 04/28/2025 1:45 PM RAW MATERIAL PLANNER Office Visit [facility] Heart and Vascular - [address] [place] [address] Jasvir Coffey MD [address] [place] [address] Scheduled Referrals Name Type Priority Associated Diagnoses Orde r Schedule AMB REFERRAL TO PHYSICAL THERAPY Outpatient Referral Routine Postoperative visit Aftercare following right knee joint replacement surgery Presence of right artificial knee joint S/P robot-assisted surgical procedure Ordered: 01/20/2025 documented as of this encounter Visit Diagnoses Diagnosis Postoperative visit- Primary Aftercare following right knee joint replacement surgery Presence of right artificial knee joint Knee joint replacement by other means S/P robot-assisted surgical procedure documented in this encounter
--- OUTSIDE RECORDS SUMMARY | 2025-01-21 13:01 | XMS_ITS | Clinical Summary ---
Author Organization [facility] First Address [address] [place] [address] Care Team Providers Care Mutual Fund Manager Name Role Phone Unavailable Primary Care Provider Unavailabl e Allergies Active Allergy Reactions Criticality Noted Date Comments Yaw Inhibitors Cough Low 08/08/2015 cough Simvastatin Muscle Pain Low 01/11/2022 Medications metFORMIN 1,000 mg tablet Take 1,000 mg by mouth daily with breakfast. 023 Active cyanocobalamin 1,000 mcg Tablet Take 1,000 mcg by mouth daily. 023 Active gabapentin (NEURONTIN) 100 mg capsule Take 1 Capsule by mouth. 022 Active atorvastatin (LIPITOR) 80 mg tablet Take 1 Tablet by mouth daily. 021 Active metoprolol succinate (TOPROL XL) 100 mg Extended Release 24 hour tablet Take 50 mg by mouth daily. Active semaglutide (Ozempic) 0.25 mg or 0.5 mg (2 mg/3 mL) Pen Injector Inject 0.25 mg by subcutaneous injection every 7 days. 9 mL 3 025 Active cetirizine (ZyrTEC) 10 mg tablet Take 10 mg by mouth daily. 025 Active donepeziL (ARICEPT) 10 mg tablet Take 10 mg by mouth daily at bedtime. Active busPIRone (BUSPAR) 10 mg tablet Take 5 mg by mouth daily. Active cholecalciferol, Vitamin D3, 50 mcg (2,000 unit) Tablet Take 50 mcg by mouth. Active clopidogreL (PLAVIX) 75 mg Tablet Take 75 mg by mouth daily. Active empagliflozin (JARDIANCE) 25 mg tablet Take 12.5 mg by mouth. Active isosorbide mononitrate (IMDUR) 30 mg Extended Release 24 hour tablet Take 30 mg by mouth daily in the morning. Active omeprazole (PriLOSEC) 40 mg Capsule, Delayed Release(E.C.) Take 40 mg by mouth daily. Active tamsulosin (FLOMAX) 0.4 mg capsule Take 0.8 mg by mouth 2 times daily. Active aspirin (ECOTRIN EC) 81 mg Tablet, Delayed Release (E.C.) Take 1 Tablet (81 mg) by mouth 2 times daily. 60 Tablet 01/07/20 11:13 AM CDT Active docusate sodium (Colace) 100 mg capsule Take 1 Capsule (100 mg) by mouth 2 times daily as needed for Constipation. 60 Capsule 3 01/07/20 11:13 AM CDT Active HYDROcodone-aceta minophen (NORCO) 5-325 mg tabletIndications :Post-op pain Take 1 Tablet by mouth every 4 hours as needed for Pain, Moderate. Max Daily Amount: 6 Tablets 42 Tablet Active aspirin 81 mg tablet,delayed release Take 81 mg by mouth daily. 2024 Discontinued Irbesartan (AVAPRO) 75 mg tablet Take 75 mg by mouth daily. 2024 Discontinued(N ew contraindicati on) HYDROcodone-aceta minophen (NORCO) 5-325 mg tabletIndications :Primary osteoarthritis of right knee Take 1 Tablet by mouth every 4 hours as needed for Pain, Moderate. Max Daily Amount: 6 Tablets 42 Tablet 01/07/20 25 11:13 AM CDT 025 2024 Discontinued(R eodonna) Irbesartan (AVAPRO) 300 mg tablet Take 300 mg by mouth daily. 2024 Discontinued(N ew contraindicati on) Active Problems Problem Noted Date Diagnosed Date Primary osteoarthritis of right knee 01/05/2025 Abdominal aortic aneurysm 10/28/2024 Vitamin D deficiency 10/28/2024 Pure hypercholesterolemia 10/28/2024 Obesity 10/28/2024 Neck pain 10/28/2024 Pain in unspecified knee 10/28/2024 History of arthroplasty of left hip 10/28/2024 Hearing loss 10/28/2024 Generalized anxiety disorder 10/28/2024 Fistula of gallbladder 10/28/2024 Dementia 10/28/2024 Chronic cholecystitis 10/28/2024 Benign prostatic hyperplasia without urinary obs truction 10/28/2024 Dyslipidemia 12/16/2022 Type 2 diabetes mellitus wit hout complication, without long-term current use of insulin 12/16/2022 Primary hypertension 12/16/2022 Coronary artery disease - PCI x 3 in 2011 Aneurysm of ascending aorta without rupture - 5. 1 cm by CTA 12/16/2022 Nonrheumatic aortic valve insufficiency 12/13/19 23 Incontinence of feces with fecal urgency 021 Polyneuropathy associated with underlying diseas e 01/24/2021 PAD (peripheral artery disease) 03/29/2020 Primary osteoarthritis involving multiple joints 04/22/2016 S/p bare metal coronary artery stent 10/19/2015 Overview (10/28/2024): 12/01/2002 Mid LAD 3.0x23 mm Zeta Tremor, essential 02/13/2015 Sleep apnea 02/13/2015 Memory loss 12/28/2014 Hypothyroidism 06/25/2010 Overview (10/28/2024): MARYJO TAI ASST Esophageal reflux 10/11/2008 Overview (10/28/2024): CONNER JUNIOR MD Hyperlipidemia 01/27/2006 Overview (10/28/2024): MARYJO HICKMAN Hypertensive heart disease 07/26/2004 Overview (10/28/2024): Conner Junior UNK Encounters Date Type Department Care Team Description 01/21/2025 Telephone [facility] Heart and Vascular - [address] [place] [address] Jasvir Coffey MD Information 01/20/2025 10:00 AM CDT Clinical Support [facility] Heart and Vascular - [address] [place] [address] Hypotension, unspecified hypotension type (Primary Dx) 01/20/2025 9:20 AM CDT Office Visit [facility] Orthopedic Surgery - [address] [place] [address] Conner Degroot MD Postoperative visit (Primary Dx); Aftercare following right knee joint replacement surgery; Presence of right artificial knee joint; S/P robot-assisted surgical procedure 01/17/2025 Refill [facility] Orthopedic Surgery - [address] [place] [address] Conner Degroot MD Post-op pain (Primary Dx); Primary osteoarthritis of right knee 01/07/2025 Telephone [facility] Orthopedic Surgery - [address] [place] [address] Conner Degroot MD Question 01/05/2025 10:15 AM CDT Anesthesia Event [facility] Operating Room [address] [place] [address] Cam Marie MD 01/05/2025 9:40 AM CDT - 01/05/2025 12:40 PM CDT Surgery [facility] Operating Room [address] [place] [address] Conner Degroot MD KNEE ARTHROPLASTY TOTAL REPLACEMENT COMPUTER/ROBOTIC ASSISTED 01/05/2025 8:01 AM CDT - 01/06/2025 1:05 PM CDT Hospital Encounter [facility] Medical Surgical Pediatrics [address] [place] [phone] Conner Degroot MD Primary osteoarthritis of right knee Discharge Disposition: Home Health Care Svc 01/05/2025 Travel 01/04/2025 Orders Only [facility] Orthopedic Surgery - [address] [place] [address] Conner Degroot MD Orthopedic aftercare (Primary Dx) 12/31/2024 Prep for Surgery [facility] Orthopedic Surgery - [address] [place] [address] Conner Degroot MD Primary osteoarthritis of right knee (Primary Dx) 12/17/2024 Orders Only [facility] Orthopedic Surgery - [address] [place] [address] Conner Degroot MD Primary osteoarthritis of right knee (Primary Dx) 12/13/2024 10:53 AM CDT - 12/13/2024 11:59 PM CDT Hospital Encounter [facility] [address] [place] [address] Conner Degroot MD Discharge Disposition: Home or Self Care 12/13/2024 10:04 AM CDT - 12/13/2024 11:59 PM CDT Hospital En[facility] [address] [place] [address] Conner Degroot MD Discharge Disposition: Home or Self Care 12/13/2024 10:02 AM CDT - 12/13/2024 11:59 PM CDT Hospital Encounter [facility] [place] [address] [place] [address] Conner Degroot MD Discharge Disposition: Home or Self Care 12/13/2024 9:59 AM CDT - 12/13/2024 11:59 PM CDT [facility] [address] [place] [address] Conner Degroot MD Preadmission Screening, Nurse Discharge Disposition: Home or Self Care 12/13/2024 8:25 AM CDT - 12/13/2024 11:59 PM CDT Hospital Encounter [facility] [address] [place] [address] Conner Degroot MD Meier, Gary E, Physical Therapist Discharge Disposition: Home or Self Care 12/13/2024 Travel 12/13/2024 Orders Only [facility] Orthopedic Surgery - [address] [place] [phone] Conner Degroot MD Primary osteoarthritis of right knee (Primary Dx) 12/10/2024 Telephone [facility] Orthopedic Surgery - [address] [place] [phone] Reginald Queen DO Surgery 12/06/2024 External Device Data Initial Department [address] [place]IN: [place] [address] Noe Owen Md 12/06/2024 Telephone [facility] Orthopedic Surgery - [address] [place] [phone] Conner Degroot MD Medication Question 12/06/2024 Prep for Surgery [facility] Orthopedic Surgery - [address] [place] [address] Conner Degroot MD Primary osteoarthritis of right knee (Primary Dx); Monitoring for anticoagulant use 11/18/2024 Abstract [facility] Orthopedic Surgery - [address] [place] [address] Conner Degroot MD 11/10/2024 External Device Data [facility] ABSTRACTION Provider, Abstract 11/09/2024 1:30 PM CDT Office Visit [facility] Orthopedic Surgery - [address] [place] [address] Conner Degroot MD Chronic pain of both knees (Primary Dx); Primary osteoarthritis of right knee 11/09/2024 External Device Data ST[facility] ABSTRACTION Provider, Abstract 11/05/2024 Abstract [facility] Orthopedic Surgery - [address] [place] [phone] Conner Degroot MD 11/02/2024 External Device Data [facility] ABSTRACTION Provider, Abstract 11/02/2024 External Device Data [facility] ABSTRACTION Provider, Abstract 10/26/2024 External Device Data [facility] ABSTRACTION Provider, Abstract from Last 3 Months Social History Tobacco Use Types Packs/Day Years Used Date Smoking Tobacco: Never Smokeless Tobacco: Never Alcohol Use Standard Drinks/Week Comments Not Currently 0 (1 standard drink = 0.6 oz pur e alcohol) Sex and Gender Information Value Date Recorded Sex Assigned at Not on file Legal Sex Male 1:26 PM CDT Gender Identity Not on file Sexual Orientation Not on file Last Filed Vital Signs Vital Sign Reading Time Taken Comments Blood Pressure 108/54 01/20/2025 11:07 AM CDT Pulse 108 01/20/2025 10:07 AM CDT Temperature 36.8 C (98.2 F) 01/06/2025 7:52 AM CDT Respiratory Rate 18 01/06/2025 5:20 AM CDT Oxygen Saturation 97% 01/20/2025 10:07 AM CDT Inhaled Oxygen Concentration - - Weight 107 kg (236 lb) 01/20/2025 10:07 AM CDT Height 182.9 cm (6') 01/20/2025 10:07 AM CDT Body Mass Index 32.01 01/20/2025 10:07 AM CDT Plan of Treatment Upcoming Encounters Date Type Department Care Team (Late st Contact Info) Description 03/03/2025 10:30 AM CDT Office Visit [facility] Orthopedic Surgery - [address] [place] [address] Conner Degroot MD [address] [place] [address] 04/28/2025 1:45 PM DEFECT CUTTER Office Visit [facility] Heart and Vascular - [address] [place] [phone] Jasvir Coffey MD [address] [place] [address] Health Maintenance Due Date Last Done Comments DIABETES ANNUAL FOOT EXAM 1961 DIABETES MICROALBUMIN ANNUAL SCREEN 1961 Traditional Medicare (ACO) A nnual Wellness Visit 1962 RSV VACCINE (60+ or ) (1 - 1-dose 75+ series) 2018 DTAP/TDAP/TD VACCINES (3 - T d or Tdap) 03/05/2022 03/05/2012, 02/03/2012 COVID-19 Vaccine ( - 2023-2 5 season) 2024 08/10/2020, 07/13/2020 INFLUENZA VACCINE (#1) 2025 , 04/01/2019, 03/23/2019, Additional history exists LDL CHOLESTEROL ANNUAL 02/19/2025 02/20/2024 DIABETES ANNUAL RETINAL EXAM 02/23/202508/2023, 08/22/2020, 07/18/2020 DIABETES HBA1C Q 6 MONTHS 03/24/20252024, 02/20/2024, 02/20/2024, Additional history exists PNEUMOCOCCAL VACCINE 50+ YEARS Completed 0 01/24/2021, 04/01/2019, 06/23/2018, Additional history exists COLORECTAL SCREENING Discontinued 07/31/2021, 07/31/19 Colorectal Cancer Screening Discontinued ZOSTER VACCINE Completed 05/13/2022, 01/11/2022 FIT-DNA Q 3 years Discontinued FIT/FOBT Q 1 year Discontinued Flex Sig/CT Colonography Q 5 years Discontinued Medical Devices Implanted Type Area Rn Charge Device Identifier Shelf Expiration Date Model / Serial / Lot Cement Bone Biomet R 1x40 [id number] - [id number] Implanted:Qty: 1 on 01/05/2025 by Conner Degroot MD at [facility] Cement Right: Knee [employer]ID [employer] 04/22/2027 [id number] / / [id number] Cement Bone Biomet R 1x40 [id number] - [id number] Implanted:Qty: 1 on 01/05/2025 by Conner Degroot MD at [facility] Cement Right: Knee [employer] 05/22/2027 [id number] / / [id number] Cement Bone Biomet R 1x40 [id number] - [id number] Implanted:Qty: 1 on 01/05/2025 by Conner Degroot MD at [facility] Cement Right: Knee [employer] 05/22/2027 [id number] / / [id number] Patella Persona Poly 38mm [id number] - [id number] Implanted:Qty: 1 on 01/05/2025 by Conner Degroot MD at [facility] Knee Right: Knee [employer] 10/04/2029 [id number] / / [id number] Comp Tib Persona 5d Szg Rt [id number] - [id number] Implanted:Qty: 1 on 01/05/2025 by Conner Degroot MD at [facility] Knee Right: Knee [employer] [id number] 2 01/29/2034 [id number] / / [id number] Comp Fem Persona Cr Sz12 Rt [id number] - [id number] Implanted:Qty: 1 on 01/05/2025 by Conner Degroot MD at [facility] Knee Right: Knee [employer] [id number] 2 06/26/2034 [id number] / / [id number] Insert Tib Persona Vivacit-E 12 G-H 10mm Rt Cr [id number] - [id number] Implanted:Qty: 1 on 01/05/2025 by Conner Degroot MD at [facility] Knee Right: Knee [employer] [id number] 08/23/2029 [id number] / / [id number] Screw Persona 2.5x25mm [id number] - [id number] Implanted:Qty: 1 on 01/05/2025 by Conner Degroot MD at [facility] Screw Right: Knee [employer] 12/01/2034 [id number] / / [id number] Procedures Procedure Name Priority Date/Time Associated Diagnosis Comments POC ELECTROLYTES/BMP Routine 01/20/2025 10:35 AM CDT Hypotension, unspecified hypotension type POC GLUCOSE Routine 01/06/2025 7:59 AM CDT BASIC METABOLIC PANEL Routine 01/06/2025 4:55 AM CDT CBC WITH DIFFERENTIAL Routine 01/06/2025 4:55 AM CDT POC GLUCOSE Routine 01/05/2025 9:54 PM CDT POC GLUCOSE Routine 01/05/2025 6:12 PM CDT POC GLUCOSE Routine 01/05/2025 4:36 PM CDT XR KNEE 1 OR 2 VW RIGHT Routine 01/05/2025 1:17 PM CDT MS ANESTHESIA BLOCK PB PLACEHOLDER CHARGE Routine 01/05/2025 1:13 PM CDT POC GLUCOSE Routine 01/05/2025 1:06 PM CDT MS ANES INSERT ENDOTRACHEAL AIRWAY Routine 01/05/2025 10:23 AM CDT MS ARTHRP KNE CONDYLE&PLATU MEDIAL&LAT COMPARTMENTS 01/05/2025 9:40 AM CDT Primary osteoarthritis of right knee Case Notes [facility] CPTR-ASST SURGICAL NAVIGATION IMAGE-LESS 01/05/2025 9:40 AM CDT Primary osteoarthritis of right knee Case Notes [facility] POC GLUCOSE Routine 01/05/2025 8:36 AM CDT VERIFICATION BLOOD GROUP Stat 01/05/2025 8:13 AM CDT Primary osteoarthritis involving multiple joints TYPE AND SCREEN Routine 12/13/2024 11:35 AM CDT Primary osteoarthritis of right knee PROTIME-INR Routine 12/13/2024 11:35 AM CDT Primary osteoarthritis of right knee Monitoring for anticoagulant use COMPREHENSIVE METABOLIC PANEL Routine 12/13/2024 11:35 AM CDT Primary osteoarthritis of right knee CBC WITH DIFFERENTIAL Routine 12/13/2024 11:34 AM CDT Primary osteoarthritis of right knee Monitoring for anticoagulant use XR CHEST PA AND LATERAL 2 VW Routine 12/13/2024 11:03 AM CDT Primary osteoarthritis of right knee EKG 12-LEAD Routine 12/13/2024 10:13 AM CDT Primary osteoarthritis of right knee LIPID PANEL Routine 02/20/2024 10:10 AM CDT Coronary artery disease - PCI x 3 in 2012 Type 2 diabetes mellitus without complication, without long-term current use of insulin (CMS/HCC) Aneurysm of ascending aorta without rupture Dyslipidemia Primary hypertension HEMOGLOBIN A1C Routine 02/20/2024 10:10 AM CDT Coronary artery disease - PCI x 3 in 2012 Type 2 diabetes mellitus without complication, without long-term current use of insulin (CMS/HCC) Aneurysm of ascending aorta without rupture Dyslipidemia Primary hypertension from Last 3 Months or Most Recently Relevant to Health Maintenance Results * (ABNORMAL) POC ELECTROLYTES/BMP (01/20/2025 10:35 AM CDT) Pathologist [facility] SODIUM POC 133(A) 138 - 146 mmol/L [facility] [address] POTASSIUM POC 4.2 3.5 - 4.9 mmol/L [facility] [address] CHLORIDE POC 103 98 - 109 mmol/L [facility] [address] CALCIUM IONIZED POC [facility] [address] CALCIUM POC 10.0 8.6 - 10.2 mg/dL [facility] [address] TOTAL CO2 POC 24 22 - 30 mmol/L [facility] [address] GLUCOSE POC 267(A) 65 - 99 mg/dL [facility] [address] BLOOD UREA NITROGEN POC 20 8 - 26 mg/dL [facility] [address] CREATININE POC 1.10 0.60 - 1.30 mg/dL [facility] [address] HEMOGLOBIN POC [facility] [address] HEMATOCRIT POC [facility] [address] ANION GAP POC [facility] [address] COMMENT, BMP POC [facility] [address] Blood 01/20/2025 10:3 5 AM CDT us Jasvir Coffey MD POINT OF CARE TESTING Final Res ult [facility] [address] BAKER# [id number] [address] [phone] * (ABNORMAL) POC GLUCOSE (01/06/2025 7:59 AM CDT) Only the most recent of6 resultswithin the time period is included. [facility] GLUCOSE POC 151(H) 74 - 99 mg/dL 01/06/2025 7:59 AM CDT [facility] SPECIMEN SOURCE, GLUCOSE POC Whole Blood 01/06/2025 7:59 AM CDT [facility] Blood, whole 01/06/2025 7:59 AM CDT 01/06/2025 8:07 AM CDT Conner Degroot MD POINT OF CARE TESTING Final Result [facility] OLIVIA# [id number] [address] [place] [id number] * (ABNORMAL) CBC WITH DIFFERENTIAL (01/06/2025 4:55 AM CDT) Only the most recent of2 resultswithin the time period is included. [facility] WBC 12.4(H) 4.0 - 9.8 K/uL 01/06/2025 5:02 AM [facility] Comment:ANC = 9.77K/uL RBC 3.71(L) 4.50 - 5.40 M/uL 01/06/2025 5:02 AM [facility] HEMOGLOBIN 12.3(L) 13.6 - 16.5 g/dL 01/06/2025 5:02 AM [facility] HEMATOCRIT 36.5(L) 40.0 - 48.0 % 01/06/2025 5:02 AM [facility] MCV 98.4 82.0 - 99.0 fL 01/06/2025 5:02 AM [facility] MCH 33.2(H) 27.2 - 32.6 pg 01/06/2025 5:02 AM [facility] MCHC 33.7 31.5 - 35.5 g/dL 01/06/2025 5:02 AM CDT [facility] RDW 12.3 11.5 - 14.5 % 01/06/2025 5:02 AM CDT [facility] RDW-STDEV 44.8 37.1 - 48.7 fL 01/06/2025 5:02 AM CDT [facility] PLATELETS 186 140 - 350 K/uL 01/06/2025 5:02 AM CDT [facility] MPV 9.9 9.3 - 12.4 fL 01/06/2025 5:02 AM CDT [facility] NEUTROPHILS 79 % 01/06/2025 5:02 AM CDT [facility] LYMPHOCYTES 12 % 01/06/2025 5:02 AM CDT [facility] MONOCYTES 9 % 01/06/2025 5:02 AM CDT [facility] EOSINOPHILS 0 % 01/06/2025 5:02 AM CDT [facility] BASOPHILS 0 % 01/06/2025 5:02 AM CDT [facility] IMMATURE GRANULOCYTES 0 % 01/06/2025 5:02 AM CDT [facility] NEUTROPHIL ABSOLUTE 9.77(H) 1.90 - 7.00 K/uL 01/06/2025 5:02 AM CDT [facility] LYMPHOCYTE ABSOLUTE 1.51 0.70 - 4.50 K/uL 01/06/2025 5:02 AM CDT [facility] MONOCYTE ABSOLUTE 1.09 0.10 - 1.30 K/uL 01/06/2025 5:02 AM CDT [facility] EOSINOPHIL ABSOLUTE 0.00 0.00 - 0.70 K/uL 01/06/2025 5:02 AM CDT [facility] BASOPHILS ABSOLUTE 0.02 0.00 - 0.20 K/uL 01/06/2025 5:02 AM CDT [facility] IMMATURE GRANULOCYTES ABSOLUTE 0.03 0.00 - 0.03 K/uL 01/06/2025 5:02 AM [facility] Blood Venipuncture / Unknown 01/06/2025 4:55 AM CDT 01/06/2025 4:58 AM CDT Conner Degroot MD HEMATOLOGY ORDERABLES Final Result [facility] CLIA# [id number] [address] [place] [address] * (ABNORMAL) BASIC METABOLIC PANEL (01/06/2025 4:55 AM CDT) SODIUM 137 136 - 145 mmol/L 01/06/2025 5:21 AM [facility] POTASSIUM 4.1 3.5 - 4.9 mmol/L 01/06/2025 5:21 AM [facility] CHLORIDE 106 98 - 107 mmol/L 01/06/2025 5:21 AM [facility] CO2 20(L) 22 - 29 mmol/L 01/06/2025 5:21 AM [facility] CALCIUM 8.5(L) 8.6 - 10.2 mg/dL 01/06/2025 5:21 AM [facility] BUN 18 6 - 20 mg/dL 01/06/2025 5:21 AM [facility] CREATININE 1.08 0.67 - 1.17 mg/dL 01/06/2025 5:21 AM [facility] Comment:The GFR result is no t clinically significant on patients <18 or >70 years of age. GLUCOSE 182(H) 74 - 99 mg/dL 01/06/2025 5:21 AM [facility] GFR >60 mL/min/1.7 3 sq meter 01/06/2025 5:21 AM [facility] Comment:eGFR calculated with 2020 CKD-EPI equation. Vegetarian diet, extremely high or low muscle mass, and may affect results. Cystatin C with Glomerular Filtration Rate is a suitable alternative for these patients. ANION GAP 11 8 - 16 mmol/L 01/06/2025 5:21 AM [facility] Blood Venipuncture / Unknown 01/06/2025 4:55 AM CDT 01/06/2025 4:58 AM CDT Conner Degroot MD CHEMISTRY ORDERABLES Final R esult [facility]# [id number] [address] [place] [address] * XR KNEE 1 OR 2 VW RIGHT (01/05/2025 1:17 PM CDT) Anatomical Region Laterality Modality Lower Extremity Computed Radiogr aphy 01/05/2025 1:18 PM CDT Impressions 01/05/2025 1:24 PM CDT IMPRESSION: 1. Right total knee arthroplasty in expected position without signs of failure. DICTATION LOCATION: Location 4 Narrative 01/05/2025 1:24 PM CDT EXAMINATION: XR KNEE 1 OR 2 VW RIGHT HISTORY: Total Knee Replacement. Primary osteoarthritis involving multiple joints; Primary osteoarthritis of right knee FINDINGS: Comparison is made with a study from September 28, 2024. A total knee arthroplasty is normally aligned without periprosthetic fracture or lucency. Intra-articular and soft tissue gas is present. Procedure Note Janessa Mcintyre MD - 01/05/2025 EXAMINATION: XR KNEE 1 OR 2 VW RIGHT HISTORY: Total Knee Replacement. Primary osteoarthritis involving multiple joints; Primary osteoarthritis of right knee FINDINGS: Comparison is made with a study from September 28, 2024. A total knee arthroplasty is normally aligned without periprosthetic fracture or lucency. Intra-articular and soft tissue gas is present. IMPRESSION: 1. Right total knee arthroplasty in expected position without signs of failure. DICTATION LOCATION: Location 4 Conner Degroot MD DIAGNOSTIC IMAGING ORDERABLE S Final Result * MS ANESTHESIA BLOCK PB PLACEHOLDER CHARGE (01/05/2025 1:13 PM CDT) Narrative Cam Marie MD - 01/05/2025 1:13 PM CDT Cam Marie MD 01/05/2025 1:13 PM Adductor Canal Block Patient location during procedure: Pre-op Start time: 01/05/2025 9:55 AM Reason for block: procedure for pain, at surgeon's request and post-op pain management Staffing Performed: Anesthesiologist (/) Authorized by: Cam Marie MD Performed by: Cam Marie MD Preanesthetic Checklist Completed: patient identified, IV checked, site marked, risks and benefits discussed, surgical consent, monitors and equipment checked, pre-op evaluation and timeout performed Hand hygiene performed prior to procedure Patient was prepped and draped in usual sterile fashion Mask worn Patient position: Supine Prep: ChloraPrep Patient monitoring: Continuous pulse oximetry, EKG, Heart rate and Non-invasive blood pressure Block Region: Lower Extremity Block Block Type: Adductor Canal Block Laterality: Right Injection technique: Single-shot [place] Identification: ultrasound guided Skin Infiltration: Lidocaine 2% Local injected: Ropivacaine (0.2% Ropivicaine with 1:200k epi) Epinephrine (mcg/mL): 5 Needle Needle type: Short-bevel Needle gauge: 22 G Needle length: 10 cm Needle localization: Ultrasound guidance Nerve Stimulator or Paresthesia Response Motor response or paresthesia obtained mA ms Depth (cm) Sedation Given: Patient Response: Responsive to light touch Additional Responses: Propofol administered per anesthesia record; patient remains responsive. Assessment Paresthesia pain: None Heart rate change: no Slow fractionated injection: yes Narrative Injections made incrementally with aspirations every (mL): 3 Events: easy and well tolerated and no block events Outcome: A full evaluation is pending Additional Notes All risks and benefits of adductor canal block discussed with patient including nerve injury, bleeding, infection, and failure of block to adequately control pain. All questions answered. Cam Marie MD PROCEDURE/MINOR SURGICAL ORD ERABLES Final Result * MS ANES INSERT ENDOTRACHEAL AIRWAY (01/05/2025 10:23 AM CDT) Narrative Tresa Knight CRNA - 01/05/2025 10:23 AM CDT Tresa Knight CRNA 01/05/2025 11:01 AM Airway Date/Time: 01/05/2025 10:23 AM Location: OR Plan: routine intubation Patient Identity Confirmed by: Verbally with patient and armband Airway: not difficult Staffing Performed: Student NA/AA Authorized by: Cam Marie MD Performed by: Germania Thomas (Student), RN Repair Order Clerk: Tresa Knight CRNA Indications and Patient Condition: Indications for Airway Management: Anesthesia Sedation Level: general anesthesia Preoxygenated: yes Patient Position: Sniffing and appropriate position w/cervical spine immobilization maintained throughout the procedure Mask Difficulty Assessment: 1 - vent by mask Plan to extubate at end of case: Yes Final Airway Details: Final Airway Type: Endotracheal airway ETT Cuffed: Yes Cuff Volume (mL): 8 Technique Used for Successful ETT Placement: Direct laryngoscopy Devices/Methods Used in Placement: Cricoid pressure and intubating stylet Blade Type: curved blade Blade Size: 4 Insertion Site: Oral ETT Size (mm): 7.5 Measured from: Gums ETT to Gums (cm): 23 Tube secured with: Tape Placement Verified by: auscultation, end tidal CO2 and chest rise Cormack-Lehane Classification: Grade I - full view of glottis Number of Attempts at Approach: 1 Additional Procedure Information: atraumatic and dentition unchanged Cam Marie MD PROCEDURE/MINOR SURGICAL ORD ERABLES Edited Result - Final * VERIFICATION BLOOD GROUP (01/05/2025 8:13 AM CDT) ABO GROUP A 01/05/2025 9:33 AM CDT [facility] RH (D) TYPE Negative 01/05/2025 9:33 AM CDT [employer] [facility] [place] Blood Venipuncture / Unknown 01/05/2025 8:13 AM CDT 01/05/2025 8:49 AM CDT Cheyenne Thomas MD BLOOD BANK ORDERABLES Final Re sult [facility] CLIA# [id number] [address] [facility] [address], * PROTIME-INR (12/13/2024 11:35 AM CDT) PROTIME 13.3 12.3 - 14.9 Seconds 12/13/2024 11:58 AM CDT [facility] INR 1.0 0.9 - 1.1 12/13/2024 11:58 AM CDT [facility] Blood Venipuncture / Unknown 12/13/2024 11:35 AM CDT 12/13/2024 11:35 AM CDT Narrative [facility] [place] - 12/13/2024 11:58 AM CDT INR Therapeutic Range: Adult: 2.0 - 3.0 for pulmonary embolism or prophylaxis against venous thrombosis or systemic embolization. 2.0 - 3.0 for patients with tissue heart valves. 2.5 - 3.5 for patients with mechanical heart valves or post DE. Pediatric (12 years and under): 1.5 - 3.0 Although the target range in children is not well established, INR values of 1.5 - 3.0 are recommended for most patients. Higher values have been used in children with prosthetic cardiac valves and hereditary clotting disorders. (<3 days) therapeutic ranges have not been established. us Conner Degroot MD HEMATOLOGY ORDERABLES Final Result [facility] [place] CLIA# [id number] [address] [place] [address] * TYPE AND SCREEN (12/13/2024 11:35 AM CDT) ABO GROUP A 12/13/2024 1:14 PM CDT [facility] [place] RH (D) TYPE Negative 12/13/2024 1:14 PM CDT [facility] [place] ANTIBODY SCREEN Negative 12/13/2024 1:14 PM CDT [facility] [place] Blood Venipuncture / Unknown 12/13/2024 11:35 AM CDT 12/13/2024 11:35 AM CDT us Conner Degroot MD BLOOD BANK ORDERABLES Edited Result - Final Performing Organization Address City/[facility]/ZIP Co de Phone Number [facility] CLIA# [id number] [address] [place] [address], * (ABNORMAL) COMPREHENSIVE METABOLIC PANEL (12/13/2024 11:35 AM CDT) SODIUM 137 136 - 145 mmol/L 12/13/2024 12:07 PM [facility] [employer] [facility] POTASSIUM 3.8 3.5 - 4.9 mmol/L 12/13/2024 12:07 PM [employer] CHLORIDE 105 98 - 107 mmol/L 12/13/2024 12:07 PM [employer] CO2 19(L) 22 - 29 mmol/L 12/13/2024 12:07 PM [facility] [employer] [facility] CALCIUM 9.4 8.6 - 10.2 mg/dL 12/13/2024 12:07 PM [employer] BUN 13 6 - 20 mg/dL 12/13/2024 12:07 PM [employer] CREATININE 1.10 0.67 - 1.17 mg/dL 12/13/2024 12:07 PM [employer] Comment:The GFR result is no t clinically significant on patients <18 or >70 years of age. GLUCOSE 213(H) 74 - 99 mg/dL 12/13/2024 12:07 PM [facility] [employer] [facility] TOTAL PROTEIN 7.0 6.0 - 8.3 g/dL 12/13/2024 12:07 PM [employer] ALBUMIN 4.0 3.4 - 4.8 g/dL 12/13/2024 12:07 PM [employer] BILIRUBIN TOTAL 0.8 0.0 - 1.0 mg/dL 12/13/2024 12:07 PM [employer] ALKALINE PHOSPHATASE 147(H) 40 - 129 U/L 12/13/2024 12:07 PM [employer] AST 27 12 - 38 U/L 12/13/2024 12:07 PM [employer] ALT 25 <41 U/L 12/13/2024 12:07 PM [employer] GFR >60 mL/min/1.7 3 sq meter 12/13/2024 12:07 PM [employer] [facility] Comment:eGFR calculated with 2021 CKD-EPI equation. Vegetarian diet, extremely high or low muscle mass, and may affect results. Cystatin C with Glomerular Filtration Rate is a suitable alternative for these patients. ANION GAP 13 8 - 16 mmol/L 12/13/2024 12:07 PM CDT [facility] Blood Venipuncture / Unknown 12/13/2024 11:35 AM CDT 12/13/2024 11:35 AM CDT Conner Degroot MD CHEMISTRY ORDERABLES Final R esult [facility] CLIA# [id number] [address] [place] [address] * XR CHEST PA AND LATERAL 2 VW (12/13/2024 11:03 AM CDT) Anatomical Region Laterality Modality Chest Computed Radiogr aphy 12/13/2024 11:0 4 AM CDT Impressions 12/13/2024 4:35 PM CDT IMPRESSION: Clear lungs. DICTATION LOCATION: 1 Narrative 12/13/2024 4:35 PM CDT EXAMINATION: XR CHEST PA AND LATERAL 2 VW DATE: 12/13/2024 11:03 AM HISTORY: Preoperative FINDINGS: Comparison is made to a radiograph from 06/04/2023. The lungs are clear. There is no pleural effusion or pneumothorax. Cardiomediastinal silhouette is stable. Procedure Note Nicanor Hollingsworth MD - 12/13/2024 EXAMINATION: XR CHEST PA AND LATERAL 2 VW DATE: 12/13/2024 11:03 AM HISTORY: Preoperative FINDINGS: Comparison is made to a radiograph from 06/04/2023. The lungs are clear. There is no pleural effusion or pneumothorax. Cardiomediastinal silhouette is stable. IMPRESSION: Clear lungs. DICTATION LOCATION: 1 Conenr Degroot MD DIAGNOSTIC IMAGING ORDERABLE S Final Result * EKG 12-LEAD (12/13/2024 10:13 AM CDT) 12/13/2024 10:1 3 AM CDT Narrative INTERFACE SYSTEM - 12/13/2024 2:23 PM CDT [address] [address] Test Date: 2024-12-13 Pat Name: LORETO SEO Department: 12 Room: Gender: Male Pit Supervisor: : 1945 Requested By: CONNER Serra Order Number: [id number] Reading MD: Wai Day Measurements Intervals [place] Rate: 81 P: 57 MS: 308 QRS: 99 QRSD: 101 T: 7 QT: 359 QTc: 419 Interpretive Statements SINUS RHYTHM WITH FIRST DEGREE AV BLOCK BORDERLINE RIGHT AXIS DEVIATION NONSPECIFIC T-WAVE ABNORMALITY Electronically Signed On 12-13-2024 14:23:27 CDT by Wai Day Procedure Wai Kent MD - 12/13/[address] [address] Test Date: 2024-12-13 Pat Name: LORETO SEO Department: 12 Room: Gender: Male Pit Supervisor: : 1945 Requested By: CONNER Serra Order Number: [id number] Reading ALBERT Day Measurements Intervals [place] Rate: 81 P: 57 MS: 308 QRS: 99 QRSD: 101 T: 7 QT: 359 QTc: 419 Interpretive Statements SINUS RHYTHM WITH FIRST DEGREE AV BLOCK BORDERLINE RIGHT AXIS DEVIATION NONSPECIFIC T-WAVE ABNORMALITY Electronically Signed On 12-13-2024 14:23:27 CDT by Wai Day us Conner Degroot MD ECG ORDERABLES Final Result INTERFACE SYSTEM Refer to clinic/hospital department * (ABNORMAL) HEMOGLOBIN A1C (02/20/2024 10:10 AM CDT) HEMOGLOBIN A1C 7.0(H) <5.7 % of total Hgb [facility] Comment: For someone without known diabetes, a hemoglobin A1c value of 6.5% or greater indicates that they may have diabetes and this should be confirmed with a follow-up test. For someone with known diabetes, a value <7% indicates that their diabetes is well controlled and a value greater than or equal to 7% indicates suboptimal control. A1c targets should be individualized based on duration of diabetes, age, comorbid conditions, and other considerations. Currently, no consensus exists regarding use of hemoglobin A1c for diagnosis of diabetes for children. ESTIMATED AVERAGE GLUCOSE (MG/DL) 154 mg/dL [facility] ESTIMATED AVERAGE GLUCOSE (MMOL/L) 8.5 mmol/L [facility] Comment: This test was performed on the Sondra aundrea c503 platform. Effective 09/08/23, a change in test platforms from the Parks Fructose Loader to the Sondra aundrea c503 may have shifted HbA1c results compared to historical results. Based on laboratory validation testing conducted at [facility], the Sondra platform relative to the Parks platform had an average increase in HbA1c value of < or = 0.3%. This difference is within accepted variability established by the National Glycohemoglobin Standardization Program. Note that not all individuals will have had a shift in their results and direct comparisons between historical and current results for testing conducted on different platforms is not recommended. FASTING:YES FASTING: YES Test Performed at: [facility] [place] [address] [address] [id number] [facility] Blood 02/20/2024 10:1 0 AM CDT 02/20/2024 10:12 AM CDT us Jasvir Coffey MD CHEMISTRY ORDERABLES Final Resu lt [facility] [phone] [place] [address] [address] [place] [phone] * (ABNORMAL) LIPID PANEL (02/20/2024 10:10 AM CDT) CHOLESTEROL 117 <200 mg/dL [facility] HDL 22(L) > OR = 40 mg/dL [facility] TRIGLYCERIDE 145 <150 mg/dL [facility] LDL CALCULATED 72 mg/dL (calc) [facility] Comment: Reference range: <100 Desirable range <100 mg/dL for primary prevention; <70 mg/dL for patients with CHD or diabetic patients with > or = 2 CHD risk factors. LDL-C is now calculated using the Tim-Mckeon calculation, which is a validated novel method providing better accuracy than the Friedewald equation in the estimation of LDL-C. Tim SS et al. DARIO. 2013;310(19): 9859-0769 (http://education.GoMoto/faq/OHN154) CHOL/HDL RATIO 5.3(H) <5.0 (calc) [facility] NON-HDL CHOLESTEROL 95 <130 mg/dL (calc) [facility] Comment: For patients with diabetes plus 1 major ASCVD risk factor, treating to a non-HDL-C goal of <100 mg/dL (LDL-C of <70 mg/dL) is considered a therapeutic option. Test Performed at: [facility] [place] [address] [address] [address] [phone] Kym Beebe Blood 02/20/2024 10:1 0 AM CDT 02/20/2024 10:12 AM CDT Jasvir Coffey MD CHEMISTRY ORDERABLES Final Resu lt [facility] [phone] [place] [address] [address] [phone] from Last 3 Months or Most Recently Relevant to Health Maintenance Insurance MEDICARE PART A AND B [employer] OPEN CHOICE PPO RX [facility] Medicare Part D RX [employer] Commercial * Guarantor: [employer] (C) Account Type Relation to Patient Date of Phone Billing Address Corporate Other DEFAULT ADDRESS [address] [employer] Advance Directives For more information, please contact: [phone] * Full Code (Latest Code Status on File) Date Activated Date Inactivated Comments 01/05/2025 2:31 PM 01/06/2025 3:20 PM
--- OUTSIDE RECORDS SUMMARY | 2025-01-21 13:01 | XMS_ITS | Encounter Summary ---
Author Name [facility] [place] [facility] [place] [facility] [place] Address [address] [place] [address] Care Team Providers Care Line Assembler Name Role Phone KARON GARCIA Primary Care [...] B EXC) MAXIMO PALMA Jul 22, 2023 [id number] GABBI,GE DELONTE PATIENT [employer] PREFERRED PROVIDER ORGANIZAT ION (PPO) MAXIMO PALMA Apr 22, 2023 [id number] [phone] GABBI,GE DELONTE PATIENT [employer] PREFERRED PROVIDER ORGANIZAT ION (PPO) MAXIMO PALMA Jun 23, 2014 [id number] GABBIRUSSELL RUSHTrudy PATIENT AETNA PHARMACY PRESCRIPT ION NONE Feb 11, 2017 NONE [id number] RUSSELL SEO PATIENT AETNA PHARMACY PRESCRIPT ION NONE Feb 11, 2017 NONE [id number] [phone] RUSSELL SEO PATIENT [employer]ET[employer] RX PRESCRIPT ION RX PLAN Jun 23, 2021 [id number] RUSSELL SEO PATIENT [employer]ET[employer] RX PRESCRIPT ION RX PLAN Jun 23, 2021 [id number] RUSSELL SEO PATIENT AETNA RX PRESCRIPT ION FEHBP Jun 23, 2014 [id number] RUSSELL SEO PATIENT AETNA [facility] PREFERRED PROVIDER ORGANIZAT ION (PPO) MAXIMO PALMA Jun 23, 2014 [id number] RUSSELL SEO PATIENT MEDICARE (WNR) MEDICARE () PART B May 23, 2008 PART B [id number] RUSSELL SEO PATIENT MEDICARE (WNR) MEDICARE () PART B May 23, 2008 PART B [id number] [phone] RUSSELL SEO PATIENT MEDICARE (WNR) MEDICARE () PART A Apr 23, 2008 PART A [id number] RUSSELL SEO PATIENT MEDICARE (WNR) MEDICARE () PART A Apr 23, 2008 PART A [id number] RUSSELL SEO PATIENT MEDICARE (WNR) MEDICARE () PART A Apr 23, 2008 PART A [id number] [phone] RUSSELL SEO PATIENT MEDICARE (WNR) MEDICARE () PART B Apr 23, 2008 PART B [id number] [phone] RUSSELL SEO PATIENT Selected Encounter This section includes the information on record at [place] for the Encounter. Date/Time Encounter Type Encounter Description Reason Provider Source Jul 20, 2024 10:30 AM PT EDUCATION NOC [facility] ICD-10-CM Z72.3 Lack of physical exercise [place] [facility] Encounter Template Text not used by [facility] Assessments - Encounter Diagnoses This section includes the primary and secondary diagnoses documented for the Encounter. Date/Time Primary/Secondary Diagnosis Diagnosis Name Provider Source Jul 29, 2024 11:32 AM PRIMARY Lack of physical exercise MIRIAM ESTRADA [facility] Plan of Treatment: Future Appointments (+ 6 months) and Future Tests (+/- 45 days) The Plan of Treatment section includes future care activities for the patient from all [place] treatmentfacilities. This section includes future appointments and future orders which are active, pending or scheduled. Future Appointments This section includes appointments that were scheduled to occur 6 months from the date of the Encounter, up to a maximum of 20 appointments. The data comes from all [place] treatment facilities. Appointment Date/Time Appointment Type Appointme nt Facility Name Aug 18, 2024 11:41 AM AMBULATORY - MEDICINE EMERITA Daniel. [facility] Aug 19, 2024 08:30 AM AMBULATORY - NONE ROMERO Daniel. [facility] Sep 22, 2024 11:30 AM AMBULATORY - MEDICINE [facility] November 09, 2024 01:30 PM AMBULATORY - SURGERY . [facility] Dec 07, 2024 11:00 AM AMBULATORY - MEDICINE [facility] Dec 27, 2024 10:30 AM AMBULATORY - MEDICINE [facility] Jan 07, 2025 08:00 AM AMBULATORY - NONE [facility] Advance Directives: All historical and current Section Date Range: From patient's date of to the date document was created. This section includes ALL of a patient's completed or amended [place] Advance and Rescinded Directives. The entries below indicate that a directive exists for the patient, but an actual copy is not included with this document. The data comes from all [facility]. Date Advance Directives Provider Source Jan 14, 2022 ADVANCE DIRECTIVE DISCUSSION SHEA WINTER. [facility] Encounter Notes: All associated encounter notes This section contains the clinical notes associated to the Encounter. Date/Time Encounter Note(s) Provider Source Jul 20, 2024 10:30 AM CARE COORDINATION HOME TELEHEALTH VIDEO VISIT NOTE: LOCAL TITLE: GEROFIT VVC SUPERVISED EXERCISE NOTE STL STANDARD TITLE: CARE COORDINATION HOME TELEHEALTH VIDEO VISIT NO DATE OF NOTE: JUL 20, 2024@10:30 ENTRY DATE: JUL 20, 2024@11:38:47 AUTHOR: MIRIAM ESTRADA EXP COSIGNER: URGENCY: STATUS: COMPLETED GEROFIT-SUPERVISED EXERCISE NOTE participated in the Gerofit exercise program today. Activities were focused on progression of individual exercise prescription (cardiorespiratory fitness training, strength training, etc.) and group based exercise sessions to include, but not limited to: flexibility training, balance training, functional circuit training, Torsten Chi for arthritis, and other functional strength and neuromotor exercises. Exercise participation was instructed by Mi Winter PTA and class was monitored by Miriam Estrada PT and any questions/concerns were addressed with the patient. Modifications were made to programming as appropriate to suit Veterans individual needs, preferences, and whole health concerns. Education provided during class: Purpose of warm-up, cooldown, RPE, fall prevention, appropriate intensity levels, proper form for exercises, encouraging out of class exercise, activity recommendations for older adults, appropriate response to exercise, how to progress/modify exercises. Total Duration (minutes) for session: 90 Address: [address] [place] [address] [place] [address] Contact Information: , Rosemary Seo [phone] /es/ MIRIAM ESTRADA PT, DPT, OCS TELE PAIN PHYSICAL THERAPIST Signed: 07/20/2024 11:[address] [facility]
--- OUTSIDE RECORDS SUMMARY | 2025-01-21 13:01 | XMS_ITS | Encounter Summary ---
Author Name [facility] [place] Address [address] [place] [address] Care Team Providers Care Traffic Control Specialist Name Role Phone KARON GARCIA Primary Care [...] B EXC) MAXIMO PALMA Jul 22, 2023 [id number] GABBI,GE DELONTE PATIENT [employer]ETNA PREFERRED PROVIDER ORGANIZAT ION (PPO) MAXIMO PALMA Apr 22, 2023 [id number] [phone] GABBIRUSSELL RUSHTrudy PATIENT AETNA PREFERRED PROVIDER ORGANIZAT ION (PPO) MAXIMO PALMA Jun 23, 2014 [id number] RUSSELL SEOTrudy PATIENT AETNA PHARMACY PRESCRIPT ION NONE Feb 11, 2017 NONE [id number] RUSSELL SEO PATIENT AETNA PHARMACY PRESCRIPT ION NONE Feb 11, 2017 NONE [id number] RUSSELL SEO PATIENT AETNA RX PRESCRIPT ION RX PLAN Jun 23, 2021 [id number] RUSSELL SEO PATIENT AETNA RX PRESCRIPT ION RX PLAN Jun 23, 2021 [id number] RUSSELL SEO PATIENT AETNA RX PRESCRIPT ION FEHBP Jun 23, 2014 [id number] RUSSELL SEO PATIENT AETNA [facility] PREFERRED PROVIDER ORGANIZAT ION (PPO) MAXIMO PALMA Jun 23, 2014 [id number] RUSSELL SEO PATIENT MEDICARE (WNR) MEDICARE () PART B May 23, 2008 PART B [id number] [phone] RUSSELL SEO PATIENT MEDICARE (WNR) MEDICARE () PART B May 23, 2008 PART B [id number] [phone] RUSSELL SEO PATIENT MEDICARE (WNR) MEDICARE () PART A Apr 23, 2008 PART A [id number] RUSSELL SEO PATIENT MEDICARE (WNR) MEDICARE () PART A Apr 23, 2008 PART A [id number] RUSSELL SEO PATIENT MEDICARE (WNR) MEDICARE () PART A Apr 23, 2008 PART A [id number] RUSSELL SEOD PATIENT MEDICARE (WNR) MEDICARE () PART B Apr 23, 2008 PART B [id number] [phone] RUSSELL SEO PATIENT Selected Encounter This section includes the information on record at [facility] for the Encounter. Date/Time Encounter Type Encounter Description Reason Provider Source Jul 29, 2024 10:30 AM PT EDUCATION NOC GROUP HEALTH/WELLBEING [facility] ICD-10-CM Z72.3 Lack of physical exercise JENELLE WARNER Encounter Template Text not used by [facility] Assessments - Encounter Diagnoses This section includes the primary and secondary diagnoses documented for the Encounter. Date/Time Primary/Secondary Diagnosis Diagnosis Name Provider Source Aug 14, 2024 01:20 PM PRIMARY Lack of physical exercise [place] WINTER [facility] Plan of Treatment: Future Appointments (+ 6 months) and Future Tests (+/- 45 days) The Plan of Treatment section includes future care activities for the patient from all [place] treatmentfacilities. This section includes future appointments and future orders which are active, pending or scheduled. Future Appointments This section includes appointments that were scheduled to occur 6 months from the date of the Encounter, up to a maximum of 20 appointments. The data comes from all [place] treatment facilities. Appointment Date/Time Appointment Type Appointme nt Facility Name Aug 18, 2024 11:41 AM AMBULATORY - MEDICINE EMERITA Daniel. [facility] Aug 19, 2024 08:30 AM AMBULATORY - NONE ROMERO Daniel. [facility] Sep 22, 2024 11:30 AM AM[facility]ULAT[facility] - [facility]IC[facility] November 09, 2024 01:30 PM AMBULATORY - SURGERY [facility] Dec 07, 2024 11:00 AM [facility] - [facility]ICINE [facility] Dec 27, 2024 10:30 AM AMBULATORY - MEDICINE [facility] Jan 07, 2025 08:00 AM AMBULATORY - NONE [facility] Advance Directives: All historical and current Section Date Range: From patient's date of to the date document was created. This section includes ALL of a patient's completed or amended [place] Advance and Rescinded Directives. The entries below indicate that a directive exists for the patient, but an actual copy is not included with this document. The data comes from all [facility]. Date Advance Directives Provider Source Jan 14, 2022 ADVANCE DIRECTIVE DISCUSSION SHEA WINTER [facility] Encounter Notes: All associated encounter notes This section contains the clinical notes associated to the Encounter. Date/Time Encounter Note(s) Provider Source Jul 29, 2024 10:30 AM CARE COORDINATION HOME TELEHEALTH VIDEO VISIT NOTE: LOCAL TITLE: GEROFIT VVC SUPERVISED EXERCISE NOTE ST STANDARD TITLE: CARE COORDINATION HOME TELEHEALTH VIDEO VISIT NO DATE OF NOTE: JUL 29, 2024@10:30 ENTRY DATE: JUL 29, 2024@10:54:17 AUTHOR: MI WINTER EXP COSIGNER: URGENCY: STATUS: COMPLETED Gerofit Telehealth Remote Supervised Exercise Note Provided informed consent to receive treatment via Telehealth. [place] mailed and has been made verbally aware of [facility] [place] practices. participated remotely in the Gerofit exercise program today through WebEx. Activities were focused on progression of their individual exercise prescription (cardiorespiratory fitness training, strength training, etc.) and group based exercise sessions to include, but not limited to: flexibility training, balance training & functional circuit training. Exercise class was instructed by Jenelle Warner and Mi Winter observed class for safety [...] participants knowledge. Total Duration (minutes) for session: 35 left class early this Address: [address] [place] [address] [place] [address] Contact Information: , Rosemary Seo /es/ Mi PATEL Cancellation Clerk Signed: 07/29/2024 11:[address] [facility]
--- OUTSIDE RECORDS SUMMARY | 2025-01-21 13:01 | XMS_ITS | Encounter Summary ---
Author Name [facility] [place] Address [address] [place] [address] Care Team Providers Care Panelboard Operator Name Role Phone KARON GARCIA Primary [...] AETNA MEDICARE SECONDARY (NO B EXC) MAXIMO PALAM Jul 22, 2023 [id number] [phone] GABBI,GE DELONTE PATIENT AETNA PREFERRED PROVIDER ORGANIZAT ION (PPO) MAXIMO PALMA Apr 22, 2023 [id number] [phone] GABBIRUSSELL RUSHTrudy PATIENT AETNA PREFERRED PROVIDER ORGANIZAT ION (PPO) MAXIMO PALMA Jun 23, 2014 [id number] RUSSELL SEOTrudy PATIENT AETNA PHARMACY PRESCRIPT ION NONE Feb 11, 2017 NONE [id number] [phone] RUSSELL SEO PATIENT AETNA PHARMACY PRESCRIPT ION NONE Feb 11, 2017 NONE [id number] RUSSELL SEO PATIENT AETNA RX PRESCRIPT ION RX PLAN Jun 23, 2021 [id number] RUSSELL SEO PATIENT AETNA RX PRESCRIPT ION RX PLAN Jun 23, 2021 [id number] RUSSELL SEO PATIENT AETNA RX PRESCRIPT ION FEHBP Jun 23, 2014 [id number] RUSSELL SEO PATIENT AETNA [facility] PREFERRED PROVIDER ORGANIZAT ION (PPO) MAXIMO PALMA Jun 23, 2014 [id number] RUSSELL SEO PATIENT MEDICARE (WNR) MEDICARE () PART B May 23, 2008 PART B [id number] RUSSELL SEO PATIENT MEDICARE (WNR) MEDICARE () PART B May 23, 2008 PART B [id number] [phone] RUSSELL SEOD PATIENT MEDICARE (WNR) MEDICARE () PART A Apr 23, 2008 PART A [id number] RUSSELL SEO PATIENT MEDICARE (WNR) MEDICARE () PART A Apr 23, 2008 PART A [id number] [phone] RUSSELL SEOD PATIENT MEDICARE (WNR) MEDICARE () PART A Apr 23, 2008 PART A [id number] [phone] RUSSELL SEOD PATIENT MEDICARE (WNR) MEDICARE () PART B Apr 23, 2008 PART B [id number] [phone] RUSSELL SEO PATIENT Selected Encounter This section includes the information on record at [place] for the Encounter. Date/Time Encounter Type Encounter Description Reason Provider Source Jul 19, 2024 10:30 AM PT EDUCATION NOC GROUP HEALTH/WELLBEING [facility] ICD-10-CM Z72.3 Lack of physical exercise RUSSELL,JOSE ANGEL P IHE Encounter Template Text not used by [facility] Assessments - Encounter Diagnoses This section includes the primary and secondary diagnoses documented for the Encounter. Date/Time Primary/Secondary Diagnosis Diagnosis Name Provider Source Jul 27, 2024 09:55 PM PRIMARY Lack of physical exercise MI WINTER [facility] Plan of Treatment: Future Appointments (+ [...] AM AMBULATORY - MEDICINE EMERITA Daniel. [facility] Aug 19, 2024 08:30 AM AMBULATORY - NONE ROMERO Daniel. [facility] Sep 22, 2024 11:30 AM AMBULATORY - MEDICINE [facility] November 09, 2024 01:30 PM AMBULATORY - SURGERY [facility] Dec 07, 2024 11:00 AM AMBULATORY - MEDICINE [facility] Dec 27, 2024 10:30 AM AMBULATORY - MEDICINE [facility] Jan 07, 2025 08:00 AM AMBULATORY - NONE [facility] Advance Directives: All historical and current Section Date Range: From patient's date of to the date document was created. This section includes ALL of a patient's completed or amended [place] Advance and Rescinded Directives. The entries below indicate that a directive exists for the patient, but an actual copy is not included with this document. The data comes from all [facility]. Date Advance Directives Provider Source Jan 14, 2022 ADVANCE DIRECTIVE DISCUSSION SHEA WINTER [facility] Encounter Notes: All associated encounter notes This section contains the clinical notes associated to the Encounter. Date/Time Encounter Note(s) Provider Source Jul 19, 2024 10:30 AM CARE COORDINATION HOME TELEHEALTH VIDEO VISIT NOTE: LOCAL TITLE: GEROFIT VVC SUPERVISED EXERCISE NOTE STL STANDARD TITLE: CARE COORDINATION HOME TELEHEALTH VIDEO VISIT NO DATE OF NOTE: JUL 19, 2024@10:30 ENTRY DATE: JUL 19, 2024@11:32:07 AUTHOR: [place] WINTER EXP COSIGNER: URGENCY: STATUS: COMPLETED Gerofit Telehealth Remote Supervised Exercise Note [place] Provided informed consent to receive treatment via Telehealth. [place] mailed and has been made verbally aware [...] Total Duration (minutes) for session: 90 Address: [address] [place] [address] [place] [address] Contact Information: , Rosemary Seo [phone] /es/ Mi PATEL Nurses Medical Assistants Phlebotomists Signed: 07/19/2024 11:41 MI WINTER [facility]
--- OUTSIDE RECORDS SUMMARY | 2025-01-21 13:01 | XMS_ITS | Encounter Summary ---
Author Name [facility] [place] Organization [place] Address [address] [place] [address] Care Team Providers Care Cuff Runner Name Role Phone KARON GARCIA Primary Care [...] B EXC) MAXIMO PALMA Jul 22, 2023 [id number] GABBIRUSSELL RUSHTrudy PATIENT AETNA PREFERRED PROVIDER ORGANIZAT ION (PPO) MAXIMO PALMA Apr 22, 2023 [id number] [phone] GABBIRUSSELL RUSHTrudy PATIENT AETNA PREFERRED PROVIDER ORGANIZAT ION (PPO) MAXIMO PALMA Jun 23, 2014 [id number] RUSSELL SEOTrudy PATIENT AETNA PHARMACY PRESCRIPT ION NONE Feb 11, 2017 NONE [id number] RUSSELL SEO PATIENT AETNA PHARMACY PRESCRIPT ION NONE Feb 11, 2017 NONE [id number] RUSSELL SEO PATIENT AETNA RX PRESCRIPT ION RX PLAN Jun 23, 2021 [id number] RUSSELL SEO PATIENT AETNA RX PRESCRIPT ION RX PLAN Jun 23, 2021 [id number] RUSSELL SEO PATIENT AETNA RX PRESCRIPT ION FEHBP Jun 23, 2014 [id number] [phone] RUSSELL SEO PATIENT AETNA [facility] PREFERRED PROVIDER ORGANIZAT ION (PPO) MAXIMO PALMA Jun 23, 2014 [id number] RUSSELL SEO PATIENT MEDICARE (WNR) MEDICARE () PART B May 23, 2008 PART B [id number] [phone] RUSSELL SEO PATIENT MEDICARE (WNR) MEDICARE () PART B May 23, 2008 PART B [id number] RUSSELL SEOD PATIENT MEDICARE (WNR) MEDICARE () PART A Apr 23, 2008 PART A [id number] [phone] RUSSELL SEO PATIENT MEDICARE (WNR) MEDICARE () PART A Apr 23, 2008 PART A [id number] RUSSELL SEO PATIENT MEDICARE (WNR) MEDICARE () PART A Apr 23, 2008 PART A [id number] [phone] RUSSELL SEOD PATIENT MEDICARE (WNR) MEDICARE () PART B Apr 23, 2008 PART B [id number] [phone] RUSSELL SEO PATIENT Selected Encounter This section includes the information on record at [place] for the Encounter. Date/Time Encounter Type Encounter Description Reason Provider Source Jan 26, 2024 10:30 AM EXERCISE CLASS HEALTH/WELLBEING [facility]VS ICD-10-CM Z72.3 Lack of physical exercise JOSE ANGEL LOVE Encounter Template Text not used by [place] Assessments - Encounter Diagnoses This section includes the primary and secondary diagnoses documented for the Encounter. Date/Time Primary/Secondary Diagnosis Diagnosis Name Provider Source Feb 04, 2024 12:05 PM PRIMARY Lack of physical exercise MIRIAM ARCHER [facility] Plan of Treatment: Future Appointments (+ 6 months) and Future Tests (+/- 45 days) The Plan of Treatment section includes future care activities for the patient from all [place] [facility]. This section includes future appointments and future orders which are active, pending or scheduled. Future Appointments This section includes appointments that were scheduled to occur 6 months from the date of the Encounter, up to a maximum of 20 appointments. The data comes from all [facility]. Appointment Date/Time Appointment Type Appointme nt Facility Name Feb 05, 2024 12:15 PM AMBULATORY - MEDICINE [facility] Feb 24, 2024 10:00 AM AMBULATORY - SURGERY [facility] Feb 25, 2024 02:30 PM AMBULATORY - PSYCHIATRY [facility] Mar 01, 2024 10:30 AM AMBULATORY - SURGERY [facility] Mar 26, 2024 10:30 AM AMBULATORY - MEDICINE [facility] Apr 12, 2024 01:00 PM AMBULATORY - SURGERY [facility] Apr 14, 2024 02:00 PM AMBULATORY - MEDICINE [facility] May 06, 2024 11:00 AM AMBULATORY - MEDICINE [facility] May 10, 2024 06:00 AM AMBULATORY - NONE [facility] May 12, 2024 01:00 PM AMBULATORY - MEDICINE [facility] May 19, 2024 01:30 PM AMBULATORY - SURGERY [facility] May 31, 2024 10:00 AM AM[facility]ULATORY - NONE [facility] Active, Pending, and Scheduled Orders This section includes a listing of several types of active, pending, and scheduled orders, including clinic medications orders, diagnostic test orders, procedure orders and consult orders; where the start date of the order is 45 days before the date of the Encounter or 45 days after the date of theEncounter. The data comes from all [facility]. Test Date/Time Test Type Test Details Facility Name Mar 01, 2024 12:00 AM Laboratory - Blood Bank Order TYPE & SCREEN - LAB BLOOD SP [facility] Lab Results: +/- 30 days of the encounter This section includes the Chemistry and Hematology Lab Results on record with [place] for the patient. Radiology Reports and Pathology Reports are provided separately, in subsequent sections. Lab Results This section contains the Chemistry/Hematology Results that were resulted 30 days before or 30 daysafter the date of the Encounter. Date/Time Source Result Type Result - Unit Interpretation Reference Range Specimen Type Comment Feb 05, 2024 01:14 PM [facility] GLUCOSE,BLOOD-poct (STL) BLOOD Specimen Type: BLOOD Comment: Test Performed by: [id number] Meter #: [id number] Ordering Provider: STEVEN SCHMIDT Report Released Date/Time: Feb 05, 2024 01:26 PM Reporting Lab: [facility] [address] [facility] [id number] Performing Lab: [place] [address] [facility] [id number] GLUCOSE,BLOOD-poct (STL) 105 mg/dL H 72-99 Advance Directives: All historical and current Section Date Range: From patient's date of to the date document was created. This section includes ALL of a patient's completed or amended [place] Advance and Rescinded Directives. The entries below indicate that a directive exists for the patient, but an actual copy is not included with this document. The data comes from all [place] facilities. Date Advance Directives Provider Source Jan 14, 2022 ADVANCE DIRECTIVE DISCUSSION SHEA WINTER [facility] Radiology Reports: +/- 30 days of [...] the Encounter. The data comes from all [place] treatment facilities. Date/Time Radiology Report Provider Source Feb 05, 2024 02:47 PM OBSTRUCTIVE SERIES : LORETO SEO [id number] -1945 M Exm Date: FEB 05, 2024@14:47 Req Phys: NELLY LIZARRAGA Pat Loc: -GI/ENDO LAB ANESTHESIA2 (Re Img Loc: -MAIN RADIOLOGY SUITE Service: Unknown [facility] [address] [place] [address] (Case [id number] COMPLETE) OBSTRUCTIVE SERIES (RAD Detailed) CPT:06719 Reason for Study: localize endoscopic clip, placed at lumenal defect, GB fistula? Clinical History: Report Status: Verified Date Reported: FEB 06, 2024 Date Verified: FEB 06, 2024 Blow Pit Helper E-Sig:/ES/ALEX DE ANDA MD Report: Case #[id number]. [...] DE ANDA MD, Staff Physician - Radiologist (Blow Pit Helper) /ALEX BROWNING [facility] Encounter Notes: All associated encounter notes This section contains the clinical notes associated to the Encounter. Date/Time Encounter Note(s) Provider Source Jan 26, 2024 10:30 AM CARE COORDINATION HOME TELEHEALTH VIDEO VISIT NOTE: LOCAL TITLE: GEROFIT VVC SUPERVISED EXERCISE NOTE [facility] STANDARD TITLE: CARE COORDINATION HOME TELEHEALTH VIDEO VISIT NO DATE OF NOTE: JAN 26, 2024@10:30 ENTRY DATE: JAN 26, 2024@16:20:18 AUTHOR: MIRIAM ARCHER COSIGNER: URGENCY: STATUS: COMPLETED Gerofit Telehealth Remote Supervised Exercise Note [place] Provided informed consent to receive treatment via Telehealth. mailed and has been made verbally aware of [facility] [place] practices. participated remotely in the Gerofit exercise program today through [place] Virtual Dye Jig Operator. Activities were focused on progression of their individual exercise prescription (cardiorespiratory fitness training, strength training, etc.) and group based exercise sessions to include, but not limited to: flexibility training, balance training & functional circuit training. Exercise participation was supervised remotely by Miriam Archer PT and Chon Love PT was the instructor for the duration of class. Miriam Archer assisted instruction for chair exercises. Any questions/concerns were addressed with the patient. Modifications were made to programming as appropriate to suit Veterans individual needs, preferences, and whole health concerns. Total Duration (minutes) for session: 90 Address: [address] [place] [address] [address] [place] [address] Contact Information: , Rosemary Seo [phone] /leobardo/ MIRIAM ARCHER PT, JAIDA, ISAURO TELE PAIN PHYSICAL THERAPIST Signed: 01/26/2024 16:29 Receipt Acknowledged By: 01/27/2024 05:58 /es/ JOSE ANGEL LOVE PHYSICAL THERAPIST, JAIDA, MIRIAM SANTOS [facility]
--- OUTSIDE RECORDS SUMMARY | 2025-01-21 13:01 | XMS_ITS | Encounter Summary ---
Author Name [facility] [facility] [place] Address [address] [place] [address] Care Team Providers Care Yard Associate Name Role Phone KARON GARCIA Primary Care [...] B EXC) MAXIMO PALMA Jul 22, 2023 [id number] GABBI,GE DELONTE PATIENT [employer] PREFERRED PROVIDER ORGANIZAT ION (PPO) MAXIMO PALMA Apr 22, 2023 [id number] GABBIRUSSELL RUSHTrudy PATIENT [employer] PREFERRED PROVIDER ORGANIZAT ION (PPO) MAXIMO PALMA Jun 23, 2014 [id number] RUSSELL SEOTrudy PATIENT AETNA PHARMACY PRESCRIPT ION NONE Feb 11, 2017 NONE [id number] RUSSELL SEO PATIENT AETNA PHARMACY PRESCRIPT ION NONE Feb 11, 2017 NONE [id number] RUSSELL SEO PATIENT [employer]ETNA RX PRESCRIPT ION RX PLAN Jun 23, 2021 [id number] RUSSELL SEO PATIENT AETNA RX PRESCRIPT ION RX PLAN Jun 23, 2021 [id number] RUSSELL SEO PATIENT AETNA RX PRESCRIPT ION FEHBP Jun 23, 2014 [id number] RUSSELL SEO PATIENT AETNA [facility] PREFERRED PROVIDER ORGANIZAT ION (PPO) MAXIMO PALMA Jun 23, 2014 [id number] RUSSELL SEO PATIENT MEDICARE (WNR) MEDICARE () PART B May 23, 2008 PART B [id number] RUSSELL SEO PATIENT MEDICARE (WNR) MEDICARE () PART B May 23, 2008 PART B [id number] RUSSELL SEOD PATIENT MEDICARE (WNR) MEDICARE () PART A Apr 23, 2008 PART A [id number] [phone] RUSSELL SEO PATIENT MEDICARE (WNR) MEDICARE () PART A Apr 23, 2008 PART A [id number] [phone] RUSSELL SEO PATIENT MEDICARE (WNR) MEDICARE () PART A Apr 23, 2008 PART A [id number] [phone] RUSSELL SEOD PATIENT MEDICARE (WNR) MEDICARE () PART B Apr 23, 2008 PART B [id number] [phone] RUSSELL SEO PATIENT Selected Encounter This section includes the information on record at [facility] for the Encounter. Date/Time Encounter Type Encounter Description Reason Provider Source Jul 13, 2024 10:30 AM PT EDUCATION NOC GROUP HEALTH/WELLBEING [facility] ICD-10-CM Z72.3 Lack of physical exercise NATE BRYAN Encounter Template Text not used by [facility] Assessments - Encounter Diagnoses This section includes the primary and secondary diagnoses documented for the Encounter. Date/Time Primary/Secondary Diagnosis Diagnosis Name Provider Source Aug 01, 2024 08:25 PM PRIMARY Lack of physical exercise [facility]ALITNATE [facility] Plan of Treatment: Future Appointments (+ 6 months) and Future Tests (+/- 45 days) The Plan of Treatment section includes future care activities for the patient from all [place] treatmentfacilities. This section includes future appointments and future orders which are active, pending or scheduled. Future Appointments This section includes appointments that were scheduled to occur 6 months from the date of the Encounter, up to a maximum of 20 appointments. The data comes from all [place] treatment facilities. Appointment Date/Time Appointment Type Appointme nt Facility Name Aug 18, 2024 11:41 AM AMBULATORY - MEDICINE EMERITA Daniel. [facility] Aug 19, 2024 08:30 AM AMBULATORY - NONE ROMERO Daniel. [facility] Sep 22, 2024 11:30 AM AMBULATORY - MEDICINE [facility] November 09, 2024 01:30 PM AMBULATORY - SURGERY [facility] Dec 07, 2024 11:00 AM AMBULATORY - MEDICINE [facility] Dec 27, 2024 10:30 AM AMBULATORY - MEDICINE [facility] Jan 07, 2025 08:00 AM AMBULATORY - NONE [facility] Advance Directives: All historical and current Section Date Range: From patient's date of to the date document was created. This section includes ALL of a patient's completed or amended [place] Advance and Rescinded Directives. The entries below indicate that a directive exists for the patient, but an actual copy is not included with this document. The data comes from all [facility]. Date Advance Directives Provider Source Jan 14, 2022 ADVANCE DIRECTIVE DISCUSSION SHEA WINTER. [facility] Encounter Notes: All associated encounter notes This section contains the clinical notes associated to the Encounter. Date/Time Encounter Note(s) Provider Source Jul 13, 2024 10:30 AM CARE COORDINATION HOME TELEHEALTH VIDEO VISIT NOTE: LOCAL TITLE: GEROFIT VVC SUPERVISED EXERCISE NOTE ST[facility] STANDARD TITLE: CARE COORDINATION HOME TELEHEALTH VIDEO VISIT NO DATE OF NOTE: JUL 13, 2024@10:30 ENTRY DATE: JUL 13, 2024@11:25:55 AUTHOR: NATE BRYAN EXP COSIGNER: URGENCY: STATUS: COMPLETED Gerofit Telehealth Remote Supervised Exercise Note [place] Provided informed consent to receive treatment via Telehealth. mailed and has been made verbally aware of [facility] [place] practices.[place] participated remotely in the Gerofit exercise program today through WebEx. Activities were focused on progression of their individual exercise prescription (cardiorespiratory fitness training, strength training, etc.) and group based exercise sessions to include, but not limited to: flexibility training, balance training & functional circuit training. Exercise class was instructed by Miriam Estrada and Destinee Love and Nate Bryan observed class for safety monitoring. Any questions/concerns [...] Total Duration (minutes) for session: 90 Address: [address] [place] [address] [place] [address] Contact Information: , Rosemary Seo [phone] /es/ NATE BRYAN DPT, GCS Signed: 07/13/2024 11:59 NATE BRYAN [facility]
--- OUTSIDE RECORDS SUMMARY | 2025-01-21 13:01 | XMS_ITS | Encounter Summary ---
Author Name [facility] [place] [facility] [place] [facility] [place] Address [address] [place] [address] Care Team Providers Care Lumber Sorter Name Role Phone KARON GARCIA Primary Care [...] B EXC) MAXIMO PALMA Jul 22, 2023 [id number] GABBIRUSSELL RUSHTrudy PATIENT [employer] PREFERRED PROVIDER ORGANIZAT ION (PPO) MAXIMO PALMA Apr 22, 2023 [id number] [phone] GABBIRSUSELL RUSHTrudy PATIENT [employer] PREFERRED PROVIDER ORGANIZAT ION (PPO) MAXIMO PALMA Jun 23, 2014 [id number] RUSSELL SEOTrudy PATIENT AETNA PHARMACY PRESCRIPT ION NONE Feb 11, 2017 NONE [id number] [phone] RUSSELL SEO PATIENT AETNA PHARMACY PRESCRIPT ION NONE Feb 11, 2017 NONE [id number] RUSSELL SEO PATIENT AETNA RX PRESCRIPT ION RX PLAN Jun 23, 2021 [id number] RUSSELL SEO PATIENT AETNA RX PRESCRIPT ION RX PLAN Jun 23, 2021 [id number] RUSSELL SEO PATIENT AETNA RX PRESCRIPT ION FEHBP Jun 23, 2014 [id number] [phone] RUSSELL SEO PATIENT AETNA [facility] PREFERRED PROVIDER ORGANIZAT ION (PPO) MAXIMO PALMA Jun 23, 2014 [id number] RUSSELL SEO PATIENT MEDICARE (WNR) MEDICARE () PART B May 23, 2008 PART B [id number] RUSSELL SEO PATIENT MEDICARE (WNR) MEDICARE () PART B May 23, 2008 PART B [id number] [phone] RUSSELL SEO PATIENT MEDICARE (WNR) MEDICARE () PART A Apr 23, 2008 PART A [id number] RUSSELL SEO PATIENT MEDICARE (WNR) MEDICARE () PART A Apr 23, 2008 PART A [id number] RUSSELL SEO PATIENT MEDICARE (WNR) MEDICARE () PART A Apr 23, 2008 PART A [id number] [phone] RUSSELL SEO PATIENT MEDICARE (WNR) MEDICARE () PART B Apr 23, 2008 PART B [id number] [phone] RUSSELL SEO PATIENT Selected Encounter This section includes the information on record at [place] for the Encounter. Date/Time Encounter Type Encounter Description Reason Provider Source Jan 27, 2024 10:30 AM EXERCISE CLASS HEALTH/WELLBEING [facility] ICD-10-CM Z72.3 Lack of physical exercise MIRIAM ARCHER Encounter Template Text not used by [facility] Assessments - Encounter Diagnoses This section includes the primary and secondary diagnoses documented for the Encounter. Date/Time Primary/Secondary Diagnosis Diagnosis Name Provider Source Feb 05, 2024 11:35 AM PRIMARY Lack of physical exercise MIRIAM ARCHER [facility] Plan of Treatment: Future Appointments (+ 6 months) and Future Tests (+/- 45 days) The Plan of Treatment section includes future care activities for the [facility] [place] [facility] This section includes future appointments and future [...] 05, 2024 12:15 PM AMBULATORY - MEDICINE [facility] Feb 24, 2024 10:00 AM AMBULATORY - SURGERY [facility] Feb 25, 2024 02:30 PM AMBULATORY - PSYCHIATRY [facility] Mar 01, 2024 10:30 AM AMBULATORY - SURGERY [facility] Mar 26, 2024 10:30 AM AMBULATORY - MEDICINE [facility] Apr 12, 2024 01:00 PM AMBULATORY - SURGERY [facility] Apr 14, 2024 02:00 PM [facility]ULAT[facility] May 06, 2024 11:00 AM [facility] May 10, 2024 06:00 AM AMBULATORY - NONE [facility] May 12, 2024 01:00 PM AMBULATORY - MEDICINE [facility] May 19, 2024 01:30 PM AMBULATORY - SUR[facility]ERY [facility] May 31, 2024 10:00 AM AMBULATORY [...] & SCREEN - LAB BLOOD SP [facility] Lab Results: +/- 30 days of the encounter This section includes the Chemistry and Hematology Lab Results on record with [place] for the patient. Radiology Reports and Pathology Reports are provided separately, in subsequent sections. Lab Results This section contains the Chemistry/Hematology Results that were resulted 30 days before or 30 daysafter the date of the Encounter. Date/Time Source Result Type Result - Unit Interpretation Reference Range Specimen Type Comment Feb 05, 2024 01:14 PM [facility] GLUCOSE,BLOOD-poct (STL) BLOOD Specimen Type: BLOOD Comment: Test Performed by: [id number] Meter #: [id number] Ordering Provider: STEVEN SCHMIDT Report Released Date/Time: Feb 05, 2024 01:26 PM Reporting Lab: [facility] [address] [facility] [address] Performing Lab: [place] [address] [facility] [address] GLUCOSE,BLOOD-poct (STL) 105 mg/dL H 72-99 Advance Directives: All historical and current Section Date Range: From patient's date of to the date document was created. This section includes ALL of a patient's completed or amended [place] Advance and Rescinded Directives. The entries below indicate that a directive exists for the patient, but an actual copy is not included with this document. The data comes from all [facility]. Date Advance Directives Provider Source Jan 14, 2022 ADVANCE DIRECTIVE DISCUSSION SHEA WINTER [facility] Radiology Reports: +/- 30 [...] the Encounter. The data comes from all [place] treatment facilities. Date/Time Radiology Report Provider Source Feb 05, 2024 02:47 PM OBSTRUCTIVE SERIES : LORETO SEO [id number] -[id number] M Exm Date: FEB 05, 2024@14:47 Req Phys: NELLY LIZARRAGA Pat Loc: [facility]-GI/ENDO LAB ANESTHESIA2 (Re Img Loc: -MAIN RADIOLOGY SUITE Service: Unknown [facility], [address] [place] [address] (Case [id number] COMPLETE) OBSTRUCTIVE SERIES (RAD Detailed) CPT:27410 Reason for Study: localize endoscopic clip, placed at lumenal defect, GB fistula? Clinical History: Report Status: Verified Date Reported: FEB 06, 2024 Date Verified: FEB 06, 2024 Toll Ticket Clerk E-Sig:/ES/ALEX DE ANDA MD Report: Case #[id number]. [...] DE ANDA MD, Staff Physician - Radiologist (Toll Ticket Clerk) /ALEX BROWNING [facility] Encounter Notes: All associated encounter notes This section contains the clinical notes associated to the Encounter. Date/Time Encounter Note(s) Provider Source Jan 27, 2024 10:30 AM CARE COORDINATION HOME TELEHEALTH VIDEO VISIT NOTE: LOCAL TITLE: GEROFIT VVC SUPERVISED EXERCISE NOTE [facility] STANDARD TITLE: CARE COORDINATION HOME TELEHEALTH VIDEO VISIT NO DATE OF NOTE: JAN 27, 2024@10:30 ENTRY DATE: JAN 27, 2024@14:19:30 AUTHOR: MIRIAM ARCHER EXP COSIGNER: URGENCY: STATUS: COMPLETED Gerofit Telehealth Remote Supervised Exercise Note [place] Provided informed consent to receive treatment via Telehealth. mailed and has been made verbally aware of [facility] [place] practices. participated remotely in the Gerofit exercise program today through [place] Virtual Athletic Coordinator. Activities were focused on progression of their individual exercise prescription (cardiorespiratory fitness training, strength training, etc.) and group based exercise sessions to include, but not limited to: flexibility training, balance training & functional circuit training. Exercise participation was supervised remotely by Miriam Archer PT and Mi Winter PTA. Mi was the instructor for the cardio component and Miriam Archer instructed for strength, balance and stretching. Both instructors also assisted instruction for chair exercises. Any questions/concerns were addressed with the patient. Modifications were made to programming as appropriate to suit Veterans individual needs, preferences, and whole health concerns. Total Duration (minutes) for session: 90 Address: [address] [place] [address] [place] [address] Contact Information: , Rosemary Seo [phone] /es/ MIRIAM ARCHER PT, DPT, OCS TELE PAIN PHYSICAL THERAPIST Signed: 01/27/2024 14:36 Receipt Acknowledged By: * AWAITING SIGNATURE * MI WINTER [facility]
--- OUTSIDE RECORDS SUMMARY | 2025-01-21 13:01 | XMS_ITS | Encounter Summary ---
Author Name [facility] [place] [facility] [place] Address [address] [place] [address] Care Team Providers Care Transmissions Systems Operator Name Role Phone KARON GARCIA Primary [...] B EXC) MAXIMO PALMA Jul 22, 2023 [id number] GABBI,RUSSELL MARTEL PATIENT [employer] PREFERRED PROVIDER ORGANIZAT ION (PPO) MAXIMO PALMA Apr 22, 2023 [id number] [phone] GABBIRUSSELL MARTEL PATIENT [employer] PREFERRED PROVIDER ORGANIZAT ION (PPO) MAXIMO PALMA Jun 23, 2014 [id number] [phone] GABBIRUSSELL RUSHTrudy PATIENT AETNA PHARMACY PRESCRIPT ION NONE Feb 11, 2017 NONE [id number] RUSSELL SEO PATIENT AETNA PHARMACY PRESCRIPT ION NONE Feb 11, 2017 NONE [id number] [phone] RUSSELL SEOD PATIENT AETNA RX PRESCRIPT ION RX PLAN Jun 23, 2021 [id number] RUSSELL SEOD PATIENT AETNA RX PRESCRIPT ION RX PLAN Jun 23, 2021 [id number] RUSSELL SEO PATIENT AETNA RX PRESCRIPT ION FEHBP Jun 23, 2014 [id number] RUSSELL SEO PATIENT AETNA [facility] PREFERRED PROVIDER ORGANIZAT ION (PPO) MAXIMO PALMA Jun 23, 2014 [id number] RUSSELL SEOD PATIENT MEDICARE (WNR) MEDICARE (M) PART B May 23, 2008 PART B [id number] RUSSELL SEOD PATIENT MEDICARE (WNR) MEDICARE (M) PART B May 23, 2008 PART B [id number] RUSSELL SEOD PATIENT MEDICARE (WNR) MEDICARE (M) PART A Apr 23, 2008 PART A [id number] RUSSELL SEOD PATIENT MEDICARE (WNR) MEDICARE (M) PART A Apr 23, 2008 PART A [id number] RUSSELL SEOD PATIENT MEDICARE (WNR) MEDICARE (M) PART A Apr 23, 2008 PART A [id number] [phone] RUSSELL SEOD PATIENT MEDICARE (WNR) MEDICARE (M) PART B Apr 23, 2008 PART B [id number] [phone] RUSSELL SEO PATIENT Selected Encounter This section includes the information on record at [facility] for the Encounter. Date/Time Encounter Type Encounter Description Reason Provider Source May 19, 2024 01:30 PM POSTOP FOLLOW-UP VISIT GENERAL SURGERY ICD-10-CM 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 LEISA MATHIS Encounter Template Text not used by [facility] Assessments - Encounter Diagnoses This section includes the primary and secondary diagnoses documented for the Encounter. Date/Time Primary/Secondary Diagnosis Diagnosis Name Provider Source Jun 04, 2024 06:39 PM PRIMARY Fistula of gallbladder ARPITMAXIMILIANOZEINA Perez [facility] Plan of Treatment: Future Appointments (+ 6 months) and Future Tests (+/- 45 days) The Plan of Treatment section includes future care activities for the patient from all [place] treatmentfacilities. This section includes future appointments and future orders which are active, pending or scheduled. Future Appointments This section includes appointments that were scheduled to occur 6 months from the date of the Encounter, up to a maximum of 20 appointments. The data comes from all [place] treatment facilities. Appointment Date/Time Appointment Type Appointme nt Facility Name May 31, 2024 10:00 AM AMBULATORY - NONE [facility] Aug 18, 2024 11:41 AM AMBULATORY - MEDICINE EMERITA Daniel. [facility] Aug 19, 2024 08:30 AM AMBULATORY - NONE ROMERO Daniel. [facility] Sep 22, 2024 11:30 AM AMBULATORY - MEDICINE [facility] November 09, 2024 01:30 PM AMBULATORY - SURGERY [facility] Lab Results: +/- 30 days of the encounter This section includes the Chemistry and Hematology Lab Results on record with [place] for the patient. Radiology Reports and Pathology Reports are provided separately, in subsequent sections. Lab Results This section contains the Chemistry/Hematology Results that were resulted 30 days before or 30 daysafter the date of the Encounter. Date/Time Source Result Type Result - Unit Interpretation Reference Range Specimen Type Comment May 11, 2024 05:42 AM [facility] GLUCOSE,BLOOD-poct (STL) BLOOD Specimen Type: BLOOD Comment: Test Performed by: [id number] Meter #: [id number] Ordering Provider: DARY MORRISON Report Released Date/Time: May 11, 2024 06:36 AM Reporting Lab: [facility] [address] [facility] [address] Performing Lab: [address] [address] GLUCOSE,BLOOD-poct (STL) 154 mg/dL H 72-99 May 11, 2024 12:40 AM [facility] BASIC METABOLIC PANEL PLASMA Specimen Type: PL ASMA Comment: No hemolysis noted. Ordering Provider: EDDIE HAYES Report Released Date/Time: May 10, 2024 11:48 PM Reporting Lab: [address] [address] Performing Lab: [address] [address] CREATININE 1.14 mg/dL 0.7-1.3 UREA NITROGEN 17.3 mg/dL 9.0-25.0 GLUCOSE 236 mg/dL H 72-99 SODIUM 136 meq/L 136-145 POTASSIUM 4.3 meq/L 3.5-5 CHLORIDE 105 meq/L 98-107 CARBON DIOXIDE 21 meq/L L 22-31 CALCIUM 9.2 mg/dL 8.4-10.4 EGFR (CKD-EPI 2020) 64.6 >60 May 11, 2024 12:40 AM [facility] CBC BLOOD Specimen Type: BLOOD No comment entered. Ordering Provider: EDDIE HAYES Report Released Date/Time: May 10, 2024 11:48 PM Reporting Lab: [address] [address] Performing Lab: [address] [address] WBC 13.3 10*3/uL H 3.6-11.2 RBC 4.49 [...] 0.00-0. 20 May 10, 2024 08:21 PM [facility] GLUCOSE,BLOOD-poct (STL) BLOOD Specimen Type: BLOOD Comment: Test Performed by: [id number] Meter #: [id number] Ordering Provider: LORELEI MORRISON Report Released Date/Time: May 10, 2024 09:18 PM Reporting Lab: [address] [address] Performing Lab: [address] [address] GLUCOSE,BLOOD-poct (STL) 192 mg/dL H 72-99 May 10, 2024 04:13 PM [facility] GLUCOSE,BLOOD-poct (STL) BLOOD Specimen Type: BLOOD Comment: Test Performed by: [id number] Meter #: [id number] Ordering Provider: LORELEI MORRISON Report Released Date/Time: May 10, 2024 05:13 PM Reporting Lab: [facility] [address] [facility] [address] Performing Lab: [address] [address] GLUCOSE,BLOOD-poct (STL) 156 mg/dL H 72-99 May 10, 2024 12:47 PM [facility] MRSA SURVL NARES DNA NARES Specimen [...] May 10, 2024 12:47 PM Reporting Lab: [facility] [address] [facility] [address] Performing Lab: [facility] [address] [facility] [address] MRSA SURVL NARES DNA Negative Negative May 10, 2024 06:30 AM [facility] GLUCOSE,BLOOD-poct (STL) BLOOD Specimen Type: BLOOD Comment: Test Performed by: [id number] Meter #: [id number] Ordering Provider: BANDAR LONGORIA Report Released Date/Time: May 10, 2024 06:43 AM Reporting Lab: [facility] [address] [facility] [address] Performing Lab: [facility] [address] [facility] [address] GLUCOSE,BLOOD-poct (STL) 174 mg/dL H 72-99 Vital Signs: All taken on the encounter date This section contains inpatient and outpatient Vital Signs collected on the date of the Encounter. Date/Time Temperature Pulse Blood Pressure Respiratory Rate SP02 Pain Height Weight Body Mass Index Source May 19, 2024 01:34 PM 97.5 70 144/80 18 98 0 72 217.9 30 [facility] Advance Directives: All historical and current Section Date Range: From patient's date of to the date document was created. This section includes ALL of a patient's completed or amended [place] Advance and Rescinded Directives. The entries below indicate that a directive exists for the patient, but an actual copy is not included with this document. The data comes from all [place] facilities. Date Advance Directives Provider Source Jan 14, 2022 ADVANCE DIRECTIVE DISCUSSION SHEA WINTER [facility] Pathology Reports: +/- 30 days of the [...] the Encounter. The data comes from all [place] treatment facilities. Date/Time Pathology Report Provider Source [...] Performing Laboratory: Surgical Pathology Report Performed By: [address] [id number] [address] [address] $FTR - - - - - - [...] - - LORETO SEO STANDARD FORM 515 ID:[id number] SEX:M :1945 AGE: 79 LOC:APFEE PCP: Lorelei Morrison MD /leobardo/ CONCETTA GOMEZ Pathologist Signed: 05/11/2024 12:18 CONCETTA GOMEZ [facility] Encounter Notes: All associated encounter notes This section contains the clinical notes associated to the Encounter. Date/Time Encounter Note(s) Provider Source May 19, 2024 01:38 PM SURGERY NOTE: LOCAL TITLE: GENERAL SURGERY NOTE STL STANDARD TITLE: SURGERY NOTE DATE OF NOTE: MAY 19, 2024@13:38 ENTRY DATE: MAY 19, 2024@13:39:05 AUTHOR: ZEINA CANNON EXP COSIGNER: LEISA MATHIS URGENCY: STATUS: COMPLETED GENERAL SURGERY NOTE STL Has ADDENDA HPI: LORETO SEO is a 79-year-old MALE with PMH of CAD s/p stent placement (2004), T2DM, GERD, and noble-colo fistula who presents for initial post-op evaluation s/p Subtotal fenestrating cholecystectomy, noble-colonic fistula takedown 05/10. Patient has overall been doing well. Reports pain at incision sites has been gradually improving and he is able to increase activity. He states he also had some soreness in his shoulders post-op but also improving. His drain has had minimal output, up to 2cc per day of serosanguinous output. He has been eating and drinking well with increasing appetite. He denies RUQ pain, nausea, vomiting, diarrhea, fever, or chills. he complains of hard stools but has been taking fiber. PMH: 1) Coronary artery disease 2) Hyperlipidemia 3) Benign essential hypertension 4) Diabetic neuropathy with neurologic complication 5) Abdominal aortic aneurysm 6) Gastroesophageal reflux disease 7) Knee pain 8) Callous character 9) Colonic fistula ROS: 12-point ROS negative except as otherwise noted in HPI above ALLERGIES: Patient has answered NKA MEDS: ACTIVE INPT MEDS: No medications found. ACTIVE OUTPATIENT MEDS: Active Outpatient Medications (including Supplies): Active Outpatient Medications Status ========= 1) ACCU-CHEK GUIDE (GLUCOSE) TEST STRIP USE 1 STRIP FOR ACTIVE BLOOD TEST TWO TIMES PER WEEK DIRECTED *HYPOGLYCEMIA, 100 STRIPS PER YEAR* Apr 2) ACETAMINOPHEN 500MG TAB TAKE TWO TABLETS BY MOUTH ACTIVE EVERY EIGHT(8) HOURS NEEDED FOR PAIN CAUTION: DO NOT EXCEED 4000MG PER DAY ACETAMINOPHEN (APAP) FROM ALL MEDS. 3) ASPIRIN 81MG EC TAB TAKE ONE TABLET BY MOUTH ONCE A ACTIVE DAY TAKE WITH FOOD. 4) ATORVASTATIN CALCIUM 80MG TAB TAKE ONE TABLET BY ACTIVE MOUTH EVERY EVENING FOR HIGH CHOLESTEROL 5) BUSPIRONE HCL 10MG TAB TAKE ONE-HALF TABLET BY MOUTH ACTIVE ONCE A DAY DO NOT TAKE WITH GRAPEFRUIT JUICE. 6) CARBOXYMETHYLCELLULOSE NA 0.5% OPH SOLN INSTILL 1 ACTIVE (S) DROP IN BOTH EYES FOUR TIMES A DAY NEEDED FOR DRY EYE(S) 7) CETIRIZINE HCL 10MG TAB TAKE ONE TABLET BY MOUTH ONCE ACTIVE A DAY NEEDED FOR ALLERGY SYMPTOMS 8) CHOLECALCIF 50MCG (D3-2,000UNIT) TAB TAKE ONE TABLET ACTIVE BY MOUTH ONCE A DAY FOR VITAMIN D DEFICIENCY 9) CLOPIDOGREL BISULFATE 75MG TAB TAKE ONE TABLET BY ACTIVE MOUTH ONCE A DAY FOR ACUTE CORONARY SYNDROME 10) CYANOCOBALAMIN 1000MCG TAB TAKE ONE TABLET BY MOUTH ACTIVE (S) ONCE A DAY FOR VITAMIN B12 SUPPLEMENTATION 11) CYCLOBENZAPRINE HCL 10MG TAB TAKE ONE TABLET BY MOUTH ACTIVE AT BEDTIME NEEDED FOR MUSCLE SPASM MAY CAUSE DROWSINESS. DO NOT DRINK ALCOHOL WHILE TAKING THIS MEDICATION. 12) DICLOFENAC NA 1% TOP GEL APPLY 4 GM TO AFFECTED ACTIVE AREA(S) FOUR TIMES A DAY NEEDED FOR PAIN DO NOT EXCEED MORE THAN 16 GRAMS DAILY TO ANY LOWER EXTREMITY JOINT. NOT MORE THAN 8 GRAMS DAILY TO ANY UPPER EXTREMITY JOINT. MAX 32GM/DAY OVER ALL JOINTS. (MEASURE DOSE WITH RULER ATTACHED INSIDE BOX) 13) DONEPEZIL HCL 10MG TAB TAKE ONE TABLET BY MOUTH AT ACTIVE BEDTIME FOR ALZHEIMER DISEASE (JUST BEFORE BEDTIME) 14) EMPAGLIFLOZIN 25MG TAB TAKE ONE-HALF TABLET BY MOUTH ACTIVE ONCE A DAY 15) IRBESARTAN 75MG TAB TAKE ONE TABLET BY MOUTH ONCE A ACTIVE DAY NOTE: DOSE DECREASE 16) ISOSORBIDE MONONITRATE 30MG SA TAB TAKE ONE TABLET BY ACTIVE MOUTH ONCE A DAY FOR CHEST PAIN TAKE ON EMPTY STOMACH. SWALLOW WHOLE. DO NOT CRUSH OR CHEW. 17) METFORMIN HCL 1000MG TAB TAKE ONE TABLET BY MOUTH ACTIVE ONCE A DAY FOR DIABETES TAKE WITH FOOD. AVOID ALCOHOL. DISCONTINUE BEFORE GETTING XRAY DYE. 18) METOPROLOL SUCCINATE 100MG SA TAB TAKE ONE-HALF ACTIVE TABLET BY MOUTH ONCE A DAY FOR HIGH BLOOD PRESSURE SWALLOW WHOLE, DO NOT CRUSH OR CHEW (TABLETS MAY BE CUT IN HALF). 19) OMEPRAZOLE 40MG EC CAP TAKE ONE CAPSULE BY MOUTH ACTIVE EVERY MORNING BEFORE A MEAL TAKE 30 MINUTES PRIOR TO FOOD. 20) OXYCODONE HCL 5MG TAB TAKE ONE TABLET BY MOUTH EVERY ACTIVE 6 HOURS NEEDED FOR POST-OPERATIVE PAIN MAY CAUSE CONSTIPATION 21) TAMSULOSIN HCL 0.4MG CAP TAKE TWO CAPSULES BY MOUTH ACTIVE EVERY EVENING FOR BENIGN PROSTATIC HYPERPLASIA APPROXIMATELY 30 MINUTES AFTER THE SAME MEAL EACH DAY PHYSICAL EXAM General: in NAD HEENT: NC/AT, EOMI Neuro: CN 3-12 grossly intact, no focal deficits CV: RRR Resp: unlabored respirations on room air Abdomen/Pelvis: soft, non-distended, non-tender. Incisions clean, dry, intact with skin glue in place, minimal ecchymosis along umbilical incision, drain in place with scant SS output MSK: extremities x4 WWP, non-edematous Psych: appropriate mood and affect LABS: CHEM 7: SODIUM 136 mEq/L 05/11/2024 00:40 POTASSIUM 4.3 mEq/L 05/11/2024 00:40 CHLORIDE 105 mEq/L 05/11/2024 00:40 UREA NITROGEN 17.3 mg/dL 05/11/2024 00:40 CREATININE 1.14 mg/dL 05/11/2024 00:40 CALCIUM 9.2 mg/dL 05/11/2024 00:40 CARBON DIOXIDE 21 L mEq/L 05/11/2024 00:40 GLUCOSE 236 H mg/dL 05/11/2024 00:40 EGFR (CKD-EPI 2020) 64.6 05/11/2024 00:40 WBC: 13.3 10*3/uL H (05/11/24 00:40) HGB: HGB 14.5 g/dL 05/11/2024 00:40 HCT: 42.9 % (05/11/24 00:40) PLATELETS: PLT 211 10*3/uL 05/11/2024 00:40 IMAGING: Impression for CT ABDOMEN W&W/O CONT, 10/29/23, case 2454 1. Hypoattenuating 1 cm left adrenal nodule diagnostic for adrenal adenoma. 2. Decompressed thick-walled gallbladder with hourglass configuration. No radiodense gallstones. This finding can be seen with adenomyomatosis. Differential diagnosis includes cholecystitis, recommend clinical correlation. Right upper quadrant ultrasound may be considered to further evaluate. No Impressions found No Impressions found IMAGING IMPRESSION SELECTED No selection items chosen for this component. PROGRESS NOTES SELECTED No data available for: CAROTID U/S EVALUATION MA Date Procedure CPT Status Case # 10/29/2023 CT ABDOMEN W&W/O CONT [id number] Verified 2454 1. Hypoattenuating 1 cm left adrenal nodule diagnostic for adrenal adenoma. 2. Decompressed thick-walled gallbladder with hourglass configuration. No radiodense gallstones. This finding can be seen with adenomyomatosis. Differential diagnosis includes cholecystitis, recommend clinical correlation. Right upper quadrant ultrasound may be considered to further evaluate. DIAGNOSIS: acute cholecystitis, gallbladder-colonic fistula ASSESSMENT/PLAN: 79-year-old MALE with PMH CAD s/p stent placement (2004), T2DM, GERD, and noble-colo fistula who presents for initial post-op evaluation s/p Subtotal fenestrating cholecystectomy, noble-colonic fistula takedown 05/10. patient overall recovering well. Drain removed in office. Reassured patient pain will continue to improve as he increases activity. No further intervention indicated at this time, follow up as needed. - Drain removed in office - Follow up PRN /leobardo/ ZEINA CANNON MD GENERAL SURGERY RESIDENT Signed: 05/19/2024 14:39 /leobardo/ LEISA MATHIS SURGEON Cosigned: 05/19/2024 21:26 05/19/2024 ADDENDUM STATUS: COMPLETED Patient discussed with surgery resident as this was not my clinic day. Okay to remove drain. /leobardo/ LEISA MATHIS SURGEON Signed: 05/19/2024 21:27 ZEINA CANNON [facility]
--- OUTSIDE RECORDS SUMMARY | 2025-01-21 13:01 | XMS_ITS | Encounter Summary ---
Author Organization [facility] Address [address] [place] [address] Care Team Providers Care Route Rider Supervisor Name Role Phone Unavailable Primary Care Provider Unavailabl e Reason for Visit * Reason Onset Date Comments Information 01/21/2025 Encounter Details Date Type Department Care Team (Late st Contact Info) Description 01/21/2025 Telephone [facility] Heart and Vascular - [address] [place] [address] Jasvir Coffey MD [address] [place] [address] Information Social History Tobacco Use Types Packs/Day Years [...] on file documented as of this encounter Miscellaneous Notes * Telephone Encounter - Yulissa Rodriguez LPN - 01/21/2025 10:52 AM CDT Daughter called She said she brought her father here yesterday after having low BP and high blood sugar in orthopedic office He was given IV fluids Daughter said today he is not feeling well again Shaking all over and feels like starts from the inside and trembling Bp taken was 211/63 Then retaken and was 144/73 Pulse 83 Sugar 244 Advised daughter to take to closest ER They are in [place] and the closest hospital is [facility] She voiced she will take pt now documented in this encounter Plan of Treatment Upcoming Encounters Date Type Department Care Team (Late st Contact Info) Description 03/03/2025 10:30 AM CDT Office Visit [facility] Orthopedic Surgery - [address] [place] [phone] Yayo Degroot MD [address] [place] [address] 04/28/2025 1:45 PM ACADEMIC AFFAIRS DIRECTOR Office Visit [facility] Heart and Vascular - [address] [place] [phone] Jasvir Coffey MD [address] [place] [phone] documented as of this encounter Visit Diagnoses Not on filedocumented in this encounter
--- OUTSIDE RECORDS SUMMARY | 2025-01-21 13:01 | XMS_ITS | Encounter Summary ---
Author Name [facility] [place] Organization [facility] [place] Address [address] [place] [address] Care Team Providers Care Line Up Examiner Name Role Phone KARNO GARCIA Primary Care Provider KENIA Mccabe Primary [...] B EXC) MAXIMO PALMA Jul 22, 2023 [id number] [phone] GABBI,GE DELONTE PATIENT [employer] PREFERRED PROVIDER ORGANIZAT ION (PPO) MAXIMO PALMA Apr 22, 2023 [id number] [phone] GABBIRUSSELL RUSHTrudy PATIENT [employer] PREFERRED PROVIDER ORGANIZAT ION (PPO) MAXIMO PALMA Jun 23, 2014 [id number] RUSSELL SEOTrudy PATIENT AETNA PHARMACY PRESCRIPT ION NONE Feb 11, 2017 NONE [id number] RUSSELL SEO PATIENT AETNA PHARMACY PRESCRIPT ION NONE Feb 11, 2017 NONE [id number] [phone] RUSSELL SEO PATIENT AETNA RX PRESCRIPT ION RX PLAN Jun 23, 2021 [id number] RUSSELL SEO PATIENT AETNA RX PRESCRIPT ION RX PLAN Jun 23, 2021 [id number] RUSSELL SEO PATIENT AETNA RX PRESCRIPT ION FEHBP Jun 23, 2014 [id number] RUSSELL SEO PATIENT AETNA [facility] PREFERRED PROVIDER ORGANIZAT ION (PPO) MAXIMO PALMA Jun 23, 2014 [id number] RUSSELL SEO PATIENT MEDICARE (WNR) MEDICARE () PART B May 23, 2008 PART B [id number] RUSSELL SEO PATIENT MEDICARE (WNR) MEDICARE () PART B May 23, 2008 PART B [id number] RUSSELL SEO PATIENT MEDICARE (WNR) MEDICARE () PART A Apr 23, 2008 PART A [id number] RUSSELL SEO PATIENT MEDICARE (WNR) MEDICARE () PART A Apr 23, 2008 PART A [id number] [phone] RUSSELL SEO PATIENT MEDICARE (WNR) MEDICARE () PART A Apr 23, 2008 PART A [id number] [phone] RUSSELL SEO PATIENT MEDICARE (WNR) MEDICARE () PART B Apr 23, 2008 PART B [id number] [phone] RUSSELL SEO PATIENT Selected Encounter This section includes the information on record at [place] for the Encounter. Date/Time Encounter Type Encounter Description Reason Provider Source Jul 06, 2024 10:30 AM PT [facility] ICD-10-CM Z72.3 Lack of physical exercise MIRIAM ESTRADA Encounter Template Text not used by [place] Assessments - Encounter Diagnoses This section includes the primary and secondary diagnoses documented for the Encounter. Date/Time Primary/Secondary Diagnosis Diagnosis Name Provider Source Jul 06, 2024 11:46 AM PRIMARY Lack of physical exercise MI WINTER [facility] Plan of Treatment: Future Appointments (+ 6 months) and Future Tests (+/- 45 days) The Plan of Treatment section includes future care activities for the patient from all [place] treatmentfacilities. This section includes future appointments and future orders which are active, pending or scheduled. Future Appointments This section includes appointments that were scheduled to occur 6 months from the date of the Encounter, up to a maximum of 20 appointments. The data comes from all [place] treatment facilities. Appointment Date/Time Appointment Type Appointme nt Facility Name Aug 18, 2024 11:41 AM AMBULATORY - MEDICINE EMERITA Daniel. [facility] Aug 19, 2024 08:30 AM AMBULATORY - NONE ROMERO Daniel. [facility] Sep 22, 2024 11:30 AM AMBULATORY - MEDICINE [facility] November 09, 2024 01:30 PM AMBULATORY - SURGERY [facility] Dec 07, 2024 11:00 AM AMBULATORY - MEDICINE [facility] Dec 27, 2024 10:30 AM AMBULATORY - MEDICINE [facility] Advance Directives: All historical and current Section Date Range: From patient's date of to the date document was created. This section includes ALL of a patient's completed or amended [place] Advance and Rescinded Directives. The entries below indicate that a directive exists for the patient, but an actual copy is not included with this document. The data comes from all [facility]. Date Advance Directives Provider Source Jan 14, 2022 ADVANCE DIRECTIVE DISCUSSION SHEA WINTER [facility] Encounter Notes: All associated encounter notes This section contains the clinical notes associated to the Encounter. Date/Time Encounter Note(s) Provider Source Jul 06, 2024 10:30 AM CARE COORDINATION HOME TELEHEALTH VIDEO VISIT NOTE: LOCAL TITLE: GEROFIT VVC SUPERVISED EXERCISE NOTE STL STANDARD TITLE: CARE COORDINATION HOME TELEHEALTH VIDEO VISIT NO DATE OF NOTE: JUL 06, 2024@10:30 ENTRY DATE: JUL 06, 2024@11:36:50 AUTHOR: MI WINTER EXP COSIGNER: URGENCY: STATUS: COMPLETED Gerofit Telehealth Remote Supervised Exercise Note [place] Provided informed consent to receive treatment via Telehealth. [place] mailed and has been made verbally aware of [facility] practices. participated remotely in the Gerofit exercise program today through [employer]. Activities were focused on progression of their individual exercise prescription (cardiorespiratory fitness training, strength training, etc.) and group based exercise sessions to include, but not limited to: flexibility training, balance training & functional circuit training. Exercise class was instructed by Miriam Estrada and Mi Winter observed class for safety [...] knowledge. Total Duration (minutes) for session: 35 Address: [address] [place] [address] [place] [address] Contact Information: , Rosemary Seo [phone] /es/ Mi PATEL [employer] Signed: 07/06/2024 11:47 MI WINTER [facility]
--- OUTSIDE RECORDS SUMMARY | 2025-01-21 13:01 | XMS_ITS ---
Author Name [facility] [facility] [place] Address [address] [place] [address] Care Team Providers Care Applications Manager Name Role Phone KARON GARCIA Primary [...] B EXC) MAXIMO PALMA Jul 22, 2023 [id number] [phone] GABBI,GE DELONTE PATIENT [employer] PREFERRED PROVIDER ORGANIZAT ION (PPO) MAXIMO PALMA Apr 22, 2023 [id number] [phone] GABBI,GE DELONTE PATIENT [employer] PREFERRED PROVIDER ORGANIZAT ION (PPO) MAXIMO PALMA Jun 23, 2014 [id number] RUSSELL SEOTrudy PATIENT AETNA PHARMACY PRESCRIPT ION NONE Feb 11, 2017 NONE [id number] RUSSELL SEO PATIENT [employer]ET[employer] PHARMACY PRESCRIPT ION NONE Feb 11, 2017 NONE [id number] RUSSELL SEO PATIENT AETNA RX PRESCRIPT ION RX PLAN Jun 23, 2021 [id number] RUSSELL SEO PATIENT AETNA RX PRESCRIPT ION RX PLAN Jun 23, 2021 [id number] RUSSELL SEO PATIENT AETNA RX PRESCRIPT ION FEHBP Jun 23, 2014 [id number] RUSSELL SEO PATIENT AETNA [facility] PREFERRED PROVIDER ORGANIZAT ION (PPO) MAXIMO PALMA Jun 23, 2014 [id number] RUSSELL SEO PATIENT MEDICARE (WNR) MEDICARE (M) PART B May 23, 2008 PART B [id number] RUSSELL SEO PATIENT MEDICARE (WNR) MEDICARE (M) PART B May 23, 2008 PART B [id number] [phone] RUSSELL SEOD PATIENT MEDICARE (WNR) MEDICARE (M) PART A Apr 23, 2008 PART A [id number] RUSSELL SEOD PATIENT MEDICARE (WNR) MEDICARE (M) PART A Apr 23, 2008 PART A [id number] RUSSELL SEOD PATIENT MEDICARE (WNR) MEDICARE (M) PART A Apr 23, 2008 PART A [id number] [phone] RUSSELL SEOD PATIENT MEDICARE (WNR) MEDICARE (M) PART B Apr 23, 2008 PART B [id number] [phone] RUSSELL SEO PATIENT Selected Encounter This section includes the information on record at [place] for the Encounter. Date/Time Encounter Type Encounter Description Reason Provider Source May 10, 2024 12:22 PM Outpatient Encounter ADMIN PAT ACTIVTIES (MASNONCT) EDWIN MANCILLA Encounter Template Text not used by [place] Plan of Treatment: Future Appointments (+ 6 months) and Future Tests (+/- 45 days) The Plan of Treatment section includes future care activities for the patient from all [place] [facility]. This section includes future appointments and future orders which are active, pending or scheduled. Future Appointments This section includes appointments that were scheduled to occur 6 months from the date of the Encounter, up to a maximum of 20 appointments. The data comes from all [facility]. Appointment Date/Time Appointment Type Appointme nt Facility Name May 12, 2024 01:00 PM [facility] May 19, 2024 01:30 PM AMBULATORY - SURGERY [facility] May 31, 2024 10:00 AM AMBULATORY - NONE [facility] Aug 18, 2024 11:41 AM AMBULATORY - MEDICINE [facility] Gabi Daniel. [facility] Aug 19, 2024 08:30 AM AMBULATORY - NONE [facility] Sep 22, 2024 11:30 AM [facility] Active, Pending, and Scheduled Orders This section includes a listing of several types of active, pending, and scheduled orders, including clinic medications orders, diagnostic test orders, procedure orders and consult orders; where the start date of the order is 45 days before the date of the Encounter or 45 days after the date of theEncounter. The data comes from all [facility]. Test Date/Time Test Type Test Details Facility Name Mar 26, 2024 12:00 AM Laboratory - Chemi stry Order CYSTATIN C EGFR PANELS (STL-PB-MA) GREEN LI/HEP BLD/PLAS PLASMA SP [facility] Lab Results: +/- 30 days of the [...] Type Comment May 11, 2024 05:42 AM [facility] GLUCOSE,BLOOD-poct (STL) BLOOD Specimen Type: BLOOD Comment: Test Performed by: [id number] Meter #: [id number] Ordering Provider: DARY MORRISON Report Released Date/Time: May 11, 2024 06:36 AM Reporting Lab: [address] [phone] Performing Lab: [address] [address] GLUCOSE,BLOOD-poct (STL) 154 mg/dL H 72-99 May 11, 2024 12:40 AM [facility] BASIC METABOLIC PANEL PLASMA Specimen Type: PL ASMA Comment: No hemolysis noted. Ordering Provider: EDDIE HAYES Report Released Date/Time: May 10, 2024 11:48 PM Reporting Lab: [address] [address] Performing Lab: [address] [address] CREATININE 1.14 mg/dL 0.7-1.3 UREA NITROGEN 17.3 mg/dL 9.0-25.0 GLUCOSE 236 mg/dL H 72-99 SODIUM 136 meq/L 136-145 POTASSIUM 4.3 meq/L 3.5-5 CHLORIDE 105 meq/L 98-107 CARBON DIOXIDE 21 meq/L L 22-31 CALCIUM 9.2 mg/dL 8.4-10.4 EGFR (CKD-EPI 2020) 64.6 >60 May 11, 2024 12:40 AM [facility] CBC BLOOD Specimen Type: BLOOD No comment entered. Ordering Provider: EDDIE HAYES Report Released Date/Time: May 10, 2024 11:48 PM Reporting Lab: [address] [address] Performing Lab: [address] [address] WBC 13.3 10*3/uL H 3.6-11.2 RBC 4.49 [...] 0.00-0. 20 May 10, 2024 08:21 PM [facility] GLUCOSE,BLOOD-poct (STL) BLOOD Specimen Type: BLOOD Comment: Test Performed by: [id number] Meter #: [id number] Ordering Provider: LORELEI MORRISON Report Released Date/Time: May 10, 2024 09:18 PM Reporting Lab: [address] [address] Performing Lab: [address] [address] GLUCOSE,BLOOD-poct (STL) 192 mg/dL H 72May 10, 2024 04:13 PM [facility] GLUCOSE,BLOOD-poct (STL) BLOOD Specimen Type: BLOOD Comment: Test Performed by: [id number] Meter #: [id number] Ordering Provider: LORELEI MORRISON Report Released Date/Time: May 10, 2024 05:13 PM Reporting Lab: [place] [address] [facility] [address] Performing Lab: [address] [address] GLUCOSE,BLOOD-poct (STL) 156 mg/dL H 72-99 May 10, 2024 12:47 PM [facility] MRSA SURVL NARES DNA NARES Specimen [...] May 10, 2024 12:47 PM Reporting Lab: [facility] [address] [facility] [address] Performing Lab: [address] [address] MRSA SURVL NARES DNA Negative Negative May 10, 2024 06:30 AM [facility] GLUCOSE,BLOOD-poct (STL) BLOOD Specimen Type: BLOOD Comment: Test Performed by: [id number] Meter #: [id number] Ordering Provider: BANDAR LONGORIA Report Released Date/Time: May 10, 2024 06:43 AM Reporting Lab: [facility] [address] [facility] [address] Performing Lab: [address] [address] GLUCOSE,BLOOD-poct (STL) 174 mg/dL H 72-99 Vital Signs: All taken on the encounter date This section contains inpatient and outpatient Vital Signs collected on the date of the Encounter. Date/Time Temperature Pulse Blood Pressure Respiratory Rate SP02 Pain Height Weight Body Mass Index Source May 10, 2024 08:19 PM 98.5 107 153/79 18 93 0 [facility] May 10, 2024 06:05 PM 97.5 105 149/79 18 94 [facility] May 10, 2024 01:23 PM 0 [facility] May 10, 2024 12:43 PM 97.5 84 159/73 18 96 [facility] May 10, 2024 06:30 AM 97.5 79 130/61 19 99 0 72 222 30 [facility] Advance Directives: All historical and [...] 14, 2022 ADVANCE DIRECTIVE DISCUSSION [facility] Pathology Reports: +/- 30 days [...] comes from all [place] treatment facilities. Date/Time Pathology Report Provider Source May 11, 2024 12:18 PM [facility] SURGICAL PATHOL OGY REPORT: LOCAL TITLE: LR SURGICAL PATHOLOGY REPORT STANDARD TITLE: PATHOLOGY PROCEDURE NOTE DATE OF NOTE: MAY 11, 2024@12:18:06 ENTRY DATE: MAY 11, 2024@12:18:06 AUTHOR: CONCETTA GOMEZ COSIGNER: URGENCY: STATUS: COMPLETED $APHDR - - [...] Performing Laboratory: Surgical Pathology Report Performed By: [facility] [address] [facility] CLIA# [id number] [address] [facility] [address] [place] [address] $FTR - - - - - - [...] - - LORETO SEO STANDARD FORM 515 ID:[id number] SEX:M :1945 AGE: 79 LOC:APFEE PCP: Lorelei Morrison MD /leobardo/ CONCETTA GOMEZ Pathologist Signed: 05/11/2024 12:18 CONCETTA GOMEZ [facility] Encounter Notes: All associated encounter notes This section contains the clinical notes associated to the Encounter. Date/Time Encounter Note(s) Provider Source May 10, 2024 12:22 PM ANESTHESIOLOGY RUSSEL WSHEET: LOCAL TITLE: PACU [facility] T[facility]: ANESTHESIOLOGY FLOWSHEET DATE OF NOTE: MAY 10, 2024@12:22 ENTRY DATE: MAY 10, 2024@12:22:18 AUTHOR: EDWIN MANCILLA COSIGNER: URGENCY: STATUS: COMPLETED Patient: LORETO SEO SSN: [id number] Anesthesia Method: General 05/10/2024 7:46 (Primary), Airway: Endotracheal Intubation, Technique: Direct Laryngoscopy, Level Of Consciousness: Sedated, Patient Position: Supine, Preoxygenated, Induction Type: Intravenous, Breathing Circuit: [place] Adult, Ventilation by Mask: Easy to Ventilate without Aid/Adjunct, Intubating Device: Straight Blade, Ease: Easy, 1 Number Of Attempts, Intubation View: Grade 1, Blade Size: 2, Size: 8 mm, Depth (cm): 23, Tube: Cuffed, Depth Measurement Location: Lips, Tracheal Cuff Inflated With Min. Volume To Create Seal, Tracheal Cuff Inflated With: Air, Breath Sounds: Equal And Bilateral, Epigastric Sounds Negative, Performed By: PRIN. MEZA, Performed By Staff: ARSLAN OSCAR, Result: Successful Rationale For Selected Technique: Elective Route: Oral Tube Checklist: Balloons Checked Airway Tube: Standard Adjunct Devices: Oral Airway, Stylet Verification Of Tube Placement: Tube Inserted Via DVVC (Direct Vision Vocal Cords) Securement: Taped Eye Protection: Both Eyes, Tape Insertion Complication: No Complications Noted Positioning: Head Neutral ASA Number: 4 Procedure: Laparoscopic possible open Cholecystectomy REPAIR BOWEL-SKIN FISTULA Diagnosis: Cholecystocolonic fistula PACU Drugs: PACU Fluids: Ringers Lactated Solution: 100 ml Estimated Blood Loss: 50 ml Orogastric: 100 ml Anesthesia Procedure: ---- Procedure 05/10/2024 6:39 In Situ, Line Number: 1, Site: Wrist, Laterality: Left, Catheter Type: Angio, Catheter Size: 18 Ga Procedure 05/10/2024 8:27 In Situ, Line Number: 1, Site: Arm, Laterality: Left, Catheter Type: Multiport, Catheter Size: 18 Ga Securement: Sterile Occlusive Dressing Procedure 05/10/2024 8:28 Line Number: 2, Level Of Consciousness: Anesthetized, Site: Arm, Laterality: Right, Catheter Type: Multiport, Catheter Size: 18 Ga, Inserted By: PRIN. MEZA, Inserted By Staff: ARSLAN OSCAR Patient Location: Post Induction - OR Sterile Procedure Prep: Chlorhexidine Technique: Standard Securement: Sterile Occlusive Dressing Date of Operation: 05/10/2024 Anesthesia Care End: 05/10/2024 11:52 Resources: Aquacel foam placed on don prominence to protect skin during surgery Safety Belt Staff: --------- LEISA MATHIS, SURGEON LEISA MATHIS, ATT. SURGEON BANDAR LONGORIA, Holding Nurse RODRIGO BARNES ANES. SUPER. ARSLAN OSCAR PRIN. ANES. MAUL, REBECCA, RELIEF RN INVASIVE TACOS MARIE, RELIEF RN INVASIVE EDWIN MANCILLA, Post-Op Nurse Surgery Start Time: 05/10/2024 8:09 Procedure End Time: Moderate Sedation Care End: /leobardo/ EDWIN MANCILLA BSN RN REGISTERED NURSE Signed: 05/10/2024 12:22 EDWIN MANCILLA [facility]
--- OUTSIDE RECORDS SUMMARY | 2025-01-21 13:01 | XMS_ITS | Encounter Summary ---
Author Name [facility] [place] Address [address] [place] [address] Care Team Providers Care Computational Chemist Name Role Phone KARON GARCIA Primary Care [...] B EXC) MAXIMO PALMA Jul 22, 2023 [id number] GABBIRUSSELL RUSHTrudy PATIENT AETNA PREFERRED PROVIDER ORGANIZAT ION (PPO) MAXIMO PALMA Apr 22, 2023 [id number] [phone] GABBI,GE DELONTE PATIENT AETNA PREFERRED PROVIDER ORGANIZAT ION (PPO) MAXIMO PALMA Jun 23, 2014 [id number] RUSSELL SEOTrudy PATIENT AETNA PHARMACY PRESCRIPT ION NONE Feb 11, 2017 NONE [id number] [phone] RUSSELL SEO PATIENT AETNA PHARMACY PRESCRIPT ION NONE Feb 11, 2017 NONE [id number] RUSSELL SEO PATIENT AETNA RX PRESCRIPT ION RX PLAN Jun 23, 2021 [id number] RUSSELL SEO PATIENT AETNA RX PRESCRIPT ION RX PLAN Jun 23, 2021 [id number] RUSSELL SEO PATIENT AETNA RX PRESCRIPT ION FEHBP Jun 23, 2014 [id number] RUSSELL SEO PATIENT AETNA [facility] PREFERRED PROVIDER ORGANIZAT ION (PPO) MAXIMO PALMA Jun 23, 2014 [id number] RUSSELL SEO PATIENT MEDICARE (WNR) MEDICARE () PART B May 23, 2008 PART B [id number] RUSSELL SEO PATIENT MEDICARE (WNR) MEDICARE () PART B May 23, 2008 PART B [id number] RUSSELL SEO PATIENT MEDICARE (WNR) MEDICARE () PART A Apr 23, 2008 PART A [id number] RUSSELL SEO PATIENT MEDICARE (WNR) MEDICARE () PART A Apr 23, 2008 PART A [id number] [phone] RUSSELL SEO PATIENT MEDICARE (WNR) MEDICARE () PART A Apr 23, 2008 PART A [id number] [phone] RUSSELL SEO PATIENT MEDICARE (WNR) MEDICARE () PART B Apr 23, 2008 PART B [id number] [phone] RUSSELL SEO PATIENT Selected Encounter This section includes the information on record at [place] for the Encounter. Date/Time Encounter Type Encounter Description Reason Provider Source Dec 07, 2024 11:00 AM OFFICE O/P EST MOD 30 MIN PRIMARY CARE/MEDICINE ICD-10-CM E11.40 Type 2 diabetes mellitus with diabetic neuropathy, unsLIZZY Barahona Encounter Template Text not used by [place] Assessments - Encounter Diagnoses This section includes the primary and secondary diagnoses documented for the Encounter. Date/Time Primary/Secondary Diagnosis Diagnosis Name Provider Source Dec 20, 2024 10:50 AM PRIMARY Type 2 diabetes mellitus with diabetic neuropathy, unsp SAMPLES,LIZZY DOUGLAS CB Dec 20, 2024 10:50 AM SECONDARY Corns and callosities SAMPLES,LIZZY DOUGLAS [facility] Plan of Treatment: Future Appointments (+ 6 months) and Future Tests (+/- 45 days) The Plan of Treatment section includes future care activities for the [facility] [place] [facility] This section includes future appointments and future orders which are active, pending or scheduled. Future Appointments This section includes appointments that were scheduled to occur 6 months from the date of the Encounter, up to a maximum of 20 appointments. The data comes from all [place] treatment facilities. Appointment Date/Time Appointment Type Appointme nt Facility Name Dec 27, 2024 10:30 AM [facility]ULATORY [facility]INE [facility] Jan 07, 2025 08:00 AM [facility]ORY [facility] NONE [facility] Feb 17, 2025 01:00 PM AMBULATORY - SURGERY [facility] Mar 24, 2025 02:30 PM AMBULATORY - MEDICINE [facility] Active, Pending, and Scheduled Orders This section includes a listing of several types of active, pending, and scheduled orders, including clinic medications orders, diagnostic test orders, procedure orders and consult orders; where the start date of the order is 45 days before the date of the Encounter or 45 days after the date of theEncounter. The data comes from all [facility]. Test Date/Time Test Type Test Details Facility Name Dec 14, 2024 01:30 PM Consult Order [facility] Cons Coordinate Measuring Machine Technician's [facility] Jan 13, 2025 11:32 AM Consult Order PROSTHETIC S REQUEST - [facility] Cons Coordinate Measuring Machine Technician's [facility] Vital Signs: All taken on the encounter date This section contains inpatient and outpatient Vital Signs collected on the date of the Encounter. Date/Time Temperature Pulse Blood Pressure Respiratory Rate SP02 Pain Height Weight Body Mass Index Source Dec 07, 2024 11:05 AM 125/60 mm[Hg] [facility] Dec 07, 2024 11:01 AM 97.3 F 66 /min 154/71 mm[Hg] 18 /min 97 % 3 72 in 229.6 lb 31 [facility] Social History: Smoking Status (Most current) and Tobacco Use (All prior to encounter date) This section includes the most current, and the historical, smoking and tobacco- related health factors from the [place] facility where the Encounter took place. Current Smoking Status This section includes the most current smoking, or tobacco-related health factor, from the [place] facility where the Encounter took place. Date/Time Current Smoking Status Comment Facil ity Mar 26, 2024 10:30 AM [place]-TOBACCO NEVER USED [facility] Tobacco Use History This section includes a history of the smoking, or tobacco-related health factors, that were collected on or before the date of the Encounter. The data comes from the [place] facility where the Encounter took place. Date/Time Smoking Status/Tobacco Use Comment F acility Feb 10, 2023 09:00 AM [place]-TOBACCO NEVER USED [facility] Advance Directives: All historical and current Section Date Range: From patient's date of to the date document was created. This section includes ALL of a patient's completed or amended [place] Advance and Rescinded Directives. The entries below indicate that a directive exists for the patient, but an actual copy is not included with this document. The data comes from all [place] facilities. Date Advance Directives Provider Source Jan 14, 2022 ADVANCE DIRECTIVE DISCUSSION SHEA WINTER [facility] Encounter Notes: All associated encounter notes This section contains the clinical notes associated to the Encounter. Date/Time Encounter Note(s) Provider Source Dec 07, 2024 11:40 AM ORTHOTICS PROSTHETICS NOTE: LOCAL TITLE: PROSTHETICS FOOT EVALUATION ST STANDARD TITLE: ORTHOTICS PROSTHETICS NOTE DATE OF NOTE: DEC 07, 2024@11:40 ENTRY DATE: DEC 07, 2024@11:40:06 AUTHOR: STEVEN SCHMIDT COSIGNER: URGENCY: STATUS: COMPLETED PROSTHETICS FOOT EVALUATION DIAGNOSIS: DPN, Foot abnormalities Rutherford-Filament Test: Nov (within last 30 days) Sensation: Diminished (indicate test point locations): left heel and right heel and toes Circulation: Pedal Pulses: Posterior Tibial LEFT: Present RIGHT: Present Dorsalis Pedis LEFT: Present RIGHT: Present Hair Present: No History of Ulcers/Amputation: No List specific issues below. If none, indicate none below. diminished sensation, abnromalities ASSESSMENT: Foot Risk Score Level 2 MODERATE RISK Decreased sensation and circulation Foot deformity No ulceration or history of amputation Description of foot deformity or infection: dim sensation, high arches bilaterally, bony promininece to lateral side of foot /leobardo/ STEVEN SCHMIDT MSN, MERCURY CRACKING TESTER, SPECIALTY MOLDER-BC NURSE PRACTITIONER Signed: 12/07/2024 11:41 STEV[facility] SCHMIDT [facility] Dec 07, 2024 11:26 AM PRIMARY CARE NOTE: LOCAL TITLE: PRIMARY CARE PROVIDER ESTABLISHED VISIT [facility] STANDARD TITLE: PRIMARY CARE NOTE DATE OF NOTE: DEC 07, 2024@11:26 ENTRY DATE: DEC 07, 2024@11:26:37 AUTHOR: STEVEN SCHMIDT EXP COSIGNER: URGENCY: STATUS: COMPLETED PRIMARY CARE PROVIDER ESTABLISHED VISIT [facility] Has ADDENDA Patient is 79 and WHITE Self Identified Gender - Man Reason for visit:Unscheduled follow-up Chief Complaint: Pt here today requesting shoes. History of Present Illness: 79 year old [...] Facility Info COVID-19 (PFIZER), MRNA, LNP-S, * 12/07/2024 [facility]* <I> COVID-19 (PFIZER), MRNA, LNP-S, * 09/22/2024 [facility]* <I> COVID-19 (PFIZER), MRNA, LNP-S, * 03/26/2024 [facility]* <I> COVID-19 (PFIZER), MRNA, LNP-S, * 09/24/2023 [facility]* <I> INFLUENZA, UNSPECIFIED FORMULATI* 09/22/2024 [facility]* <I> INFLUENZA, UNSPECIFIED FORMULATI* 03/26/2024 [facility]* <I> INFLUENZA, UNSPECIFIED FORMULATI* 09/24/2023 [facility]* <I> PNEUMOCOCCAL CONJUGATE, UNSPECIF* 09/22/2024 [facility]* <I> PNEUMOCOCCAL CONJUGATE, UNSPECIF* 03/26/2024 [facility]* <I> PNEUMOCOCCAL CONJUGATE, UNSPECIF* 09/24/2023 [facility]* <I> PNEUMOCOCCAL CONJUGATE, UNSPECIF* 02/10/2023 [facility]* <I> TDAP 09/22/2024 [facility]* <I> TDAP 03/26/2024 [facility]* <I> TDAP 09/24/2023 [facility]* <I> TDAP 02/10/2023 [facility]* <I> <C> See the Detailed Immunizations Health Summary Component[DIM] for Comments <I> See the Detailed Immunizations Health Summary Component[DIM] for Additional Information * Value is truncated; see the Detailed Immunizations Health Summary Component[DIM] for complete text History: Service Connected: 60% Rated Disabilities: 2ND DEGREE [place] (0% SC) IMPAIRED HEARING (30% SC) HIP PROSTHESIS (30% SC) LIMITED FLEXION OF KNEE (10% SC) TINNITUS (10% SC) LIMITED MOTION OF ARM (0% SC) Period of Service: ERA POW Status [...] DAY Indication: FOR VITAMIN D DEFICIENCY 8) CHOLESTYRAMINE 4GM/5GM (LIGHT) PWD PKT MIX AND DRINK 1 ACTIVE PACKET BY MOUTH TWICE DAILY NEEDED MIX WITH WATER DIRECTED. TAKE OTHER MEDICATIONS 1 HOUR BEFORE OR 6 HOURS AFTER ADMINISTRATION. Indication: FOR CHRONIC DIARRHEA 9) CLOPIDOGREL BISULFATE 75MG TAB TAKE ONE TABLET BY MOUTH ONCE ACTIVE A DAY Indication: FOR ACUTE CORONARY SYNDROME 10) CYANOCOBALAMIN 1000MCG TAB TAKE ONE TABLET BY MOUTH ONCE A ACTIVE DAY Indication: FOR VITAMIN B12 SUPPLEMENTATION 11) CYCLOBENZAPRINE HCL 10MG TAB TAKE ONE TABLET BY MOUTH AT ACTIVE BEDTIME NEEDED MAY CAUSE DROWSINESS. DO NOT DRINK ALCOHOL WHILE TAKING THIS MEDICATION. Indication: FOR MUSCLE SPASM 12) DICLOFENAC NA 1% TOP GEL APPLY 4 GM TO AFFECTED AREA(S) FOUR ACTIVE TIMES A DAY NEEDED DO NOT EXCEED MORE THAN 16 GRAMS DAILY TO ANY LOWER EXTREMITY JOINT. NOT MORE THAN 8 GRAMS DAILY TO ANY UPPER EXTREMITY JOINT. MAX 32GM/DAY OVER ALL JOINTS. (MEASURE DOSE WITH RULER ATTACHED INSIDE BOX) Indication: FOR PAIN 13) DONEPEZIL HCL 10MG TAB TAKE ONE TABLET BY MOUTH AT BEDTIME ACTIVE (JUST BEFORE BEDTIME) Indication: FOR ALZHEIMER DISEASE 14) EMPAGLIFLOZIN 25MG TAB TAKE ONE-HALF TABLET BY MOUTH ONCE A ACTIVE DAY Indication: FOR DIABETES 15) IRBESARTAN 75MG TAB TAKE ONE TABLET BY MOUTH ONCE A DAY ACTIVE NOTE: DOSE DECREASE Indication: FOR HIGH BLOOD PRESSURE 16) ISOSORBIDE MONONITRATE 30MG SA TAB TAKE ONE TABLET BY MOUTH ACTIVE ONCE A DAY TAKE ON EMPTY STOMACH. SWALLOW WHOLE. DO NOT CRUSH OR CHEW. Indication: FOR CHEST PAIN 17) MELATONIN 5MG CAP/TAB TAKE ONE CAP/TAB BY MOUTH AT BEDTIME ACTIVE Indication: FOR SLEEP 18) METFORMIN HCL 1000MG TAB TAKE ONE TABLET BY MOUTH ONCE A DAY ACTIVE TAKE WITH FOOD. AVOID ALCOHOL. DISCONTINUE BEFORE GETTING XRAY DYE. Indication: FOR DIABETES 19) METOPROLOL SUCCINATE 100MG SA TAB TAKE ONE-HALF TABLET BY ACTIVE MOUTH ONCE A DAY SWALLOW WHOLE, DO NOT CRUSH OR CHEW (TABLETS MAY BE CUT IN HALF). Indication: FOR HIGH BLOOD PRESSURE 20) OMEPRAZOLE 40MG EC CAP TAKE ONE CAPSULE BY MOUTH EVERY ACTIVE MORNING BEFORE A MEAL TAKE 30 MINUTES PRIOR TO FOOD. Indication: FOR GASTROESOPHAGEAL REFLUX DISEASE 21) TAMSULOSIN HCL 0.4MG CAP TAKE TWO CAPSULES BY MOUTH EVERY ACTIVE EVENING APPROXIMATELY 30 MINUTES AFTER THE SAME MEAL EACH DAY Indication: FOR BENIGN PROSTATIC HYPERPLASIA Review of Systems: General: Denies fever, chills, weight loss, weight gain MSK/Ext: Denies joint pain, trauma, stiffness, edema, Neuro: Denies neuropathy Skin: Denies laceration/abrasion, rash, itching, insect bites SMOKING STATUS:non smoker Physical Exam: Extremities: adequate ROM, no edema Psych: mood and affect appropriate Neuro: Alert and oriented, CN2-12 grossly intact Skin: Clear and intact RIGHT FOOT: Warm, dry, intact, good color, no hair on toes, +pulses, diminished sensation to heel and toes. +high arch LEFT FOOT: Warm, dry, intact, good color, no hair on toes, +pulses, diminished sensation to heel, + bony prominence to lateral side, callous to area inferior to great toe, + high arch Assessment/Plan: 1. DPN and foot abnormalities- consult placed for shoes. RTC:as prev sched Time spent on date of visit including face to face time, data review, and chartin min CLINICAL REMINDERS COMPLETED /susana BOWDEN, MERCURY CRACKING TESTER, SPECIALTY MOLDER-BC NURSE PRACTITIONER Signed: 12/07/2024 11:39 12/07/2024 ADDENDUM STATUS: COMPLETED Pt mentioned diarrhea as we were ending the visit. GI consult placed. OK to hold plavix, many years sent stents placed. Cont cholestyramine. /es/ STEVEN CYNDI SAMPLES MSN, MERCURY CRACKING TESTER, SPECIALTY MOLDER-BC NURSE PRACTITIONER Signed: 12/07/2024 11:46 SAMPLES,STEVEN DOUGLAS [facility] Dec 07, 2024 11:02 AM NURSING NOTE: LOCAL TITLE: 5 PACT FACE TO FACE NOTE [facility] STANDARD TITLE: NURSING NOTE DATE OF NOTE: DEC 07, 2024@11:02 ENTRY DATE: DEC 07, 2024@11:02:26 AUTHOR: ZEINAB MARISCAL COSIGNER: URGENCY: STATUS: COMPLETED Provider Visit: Patient Identifiers : Full Name Date of Reason for visit: Other: Patient here for a foot exam. Patient requesting new shoes. Mode of Arrival: Ambulatory Allergy Review: ALLERGIES/ADVERSE REACTIONS - NONE FOUND Allergy list reviewed and remains current. Recent Vital Signs: Temperature: 97.3 F [36.3 C] (12/07/2024 11:01) Pulse: 66 (12/07/2024 11:01) Respiration: 18 (12/07/2024 11:01) B/P: 154/71 (12/07/2024 11:01) Pain: 3 (12/07/2024 11:01) Wt: 229.6 lb [104.14 kg] (12/07/2024 11:01) Ht: 72 in [182.9 cm] (12/07/2024 11:01) BMI: 31.2 POX: 97% (12/07/2024 11:01) Repeat blood pressure: 125/60 Would you like to discuss any personal problem, family problem, alcohol use, drug use, or a mental or emotional illness? No Contact provided Primary Care phone number and encouraged to call if any questions or concerns. Review that after hours nurse line [phone] and emergency room are available 13/01 for patient use. Contact verbalized good understanding. COVID-19 Immunization-L,N,P,PH,U: Refused Pfizer Monovalent COVID-19 vaccine Immunization: COVID-19 (PFIZER), MRNA, LNP-S, PF, BEKAH-SUCROSE, 30 MCG/0.3 ML (AGES 12+ YEARS) Refusal Reason: PATIENT DECISION Patient refuses all immunization(s) in the COVID-19 group Date Documented: 12/07/24 11:03 Influenza Immunization - L,N,P,PH,U: No influenza vaccination was received during the recent influenza season. /leobardo/ ZEINAB MARISCAL LPN LICENSED PRACTICAL NURSE Signed: 12/07/2024 11:05 ZEINAB MARISCAL CBOC
--- OUTSIDE RECORDS SUMMARY | 2025-01-21 13:01 | XMS_ITS | Encounter Summary ---
Author Name [facility] [place] Address [address] [place] [address] Care Team Providers Care Manager Strategic Alliances Name Role Phone KARON GARCIA Primary Care [...] B EXC) MAXIMO PALMA Jul 22, 2023 [id number] GABBIRUSSELL RUSHTrudy PATIENT [employer]ET[employer] PREFERRED PROVIDER ORGANIZAT ION (PPO) MAXIMO PALMA Apr 22, 2023 [id number] [phone] GABBIRUSSELL RUSHTrudy PATIENT AETNA PREFERRED PROVIDER ORGANIZAT ION (PPO) MAXIMO PALMA Jun 23, 2014 [id number] RUSSELL SEOTrudy PATIENT AETNA PHARMACY PRESCRIPT ION NONE Feb 11, 2017 NONE [id number] RUSSELL SEO PATIENT AETNA PHARMACY PRESCRIPT ION NONE Feb 11, 2017 NONE [id number] RUSSELL SEO PATIENT AETNA RX PRESCRIPT ION RX PLAN Jun 23, 2021 [id number] RUSSELL SEO PATIENT AETNA RX PRESCRIPT ION RX PLAN Jun 23, 2021 [id number] RUSSELL SEO PATIENT AETNA RX PRESCRIPT ION FEHBP Jun 23, 2014 [id number] RUSSELL SEO PATIENT AETNA [facility] PREFERRED PROVIDER ORGANIZAT ION (PPO) MAXIMO PALMA Jun 23, 2014 [id number] RUSSELL SEO PATIENT MEDICARE (WNR) MEDICARE () PART B May 23, 2008 PART B [id number] RUSSELL SEO PATIENT MEDICARE (WNR) MEDICARE () PART B May 23, 2008 PART B [id number] RUSSELL SEOD PATIENT MEDICARE (WNR) MEDICARE () PART A Apr 23, 2008 PART A [id number] RUSSELL SEO PATIENT MEDICARE (WNR) MEDICARE () PART A Apr 23, 2008 PART A [id number] RUSSELL SEO PATIENT MEDICARE (WNR) MEDICARE () PART A Apr 23, 2008 PART A [id number] [phone] RUSSELL SEOD PATIENT MEDICARE (WNR) MEDICARE () PART B Apr 23, 2008 PART B [id number] [phone] RUSSELL SEO PATIENT Selected Encounter This section includes the information on record at [place] for the Encounter. Date/Time Encounter Type Encounter Description Reason Provider Source November 09, 2024 10:30 AM EXERCISE CLASS HEALTH/WELLBEING [facility] ICD-10-CM Z72.3 Lack of physical exercise [place] WINTER E Encounter Template Text not used by [place] Assessments - Encounter Diagnoses This section includes the primary and secondary diagnoses documented for the Encounter. Date/Time Primary/Secondary Diagnosis Diagnosis Name Provider Source November 09, 2024 11:58 AM PRIMARY Lack of physical exercise [facility] Plan of Treatment: Future Appointments (+ 6 months) and Future Tests (+/- 45 days) The Plan of Treatment section includes future care activities for the patient from all [place] treatmentfacilities. This section includes future appointments and future orders which are active, pending or scheduled. Future Appointments This section includes appointments that were scheduled to occur 6 months from the date of the Encounter, up to a maximum of 20 appointments. The data comes from all [facility]. Appointment Date/Time Appointment Type Appointme nt Facility Name Dec 07, 2024 11:00 AM AMBULATORY - MEDICINE [facility] Dec 27, 2024 10:30 AM AMBULATORY - MEDIC[facility] Jan 07, 2025 08:00 AM AMBULATORY - NONE [facility] Feb 17, 2025 01:00 PM AMBULATORY - SURGERY [facility] Mar 24, 2025 02:30 PM AMBULATORY - MEDICINE [facility] Active, Pending, and Scheduled Orders This section includes a listing of several types of active, pending, and scheduled orders, including clinic medications orders, diagnostic test orders, procedure orders and consult orders; where the start date of the order is 45 days before the date of the Encounter or 45 days after the date of theEncounter. The data comes from all [facility]. Test Date/Time Test Type Test Details Facility Name Dec 14, 2024 01:30 PM Consult Order [facility] Cons Filler Operator's [facility] Advance Directives: All historical and current Section Date Range: From patient's date of to the date document was created. This section includes ALL of a patient's completed or amended [place] Advance and Rescinded Directives. The entries below indicate that a directive exists for the patient, but an actual copy is not included with this document. The data comes from all [facility]. Date Advance Directives Provider Source Jan 14, 2022 ADVANCE DIRECTIVE DISCUSSION SHEA WINTER [facility] Encounter Notes: All associated encounter notes This section contains the clinical notes associated to the Encounter. Date/Time Encounter Note(s) Provider Source November 09, 2024 10:30 AM CARE COORDINATION HOME TELEHEALTH VIDEO VISIT NOTE: LOCAL TITLE: GEROFIT VVC SUPERVISED EXERCISE NOTE [facility] STANDARD TITLE: CARE COORDINATION HOME TELEHEALTH VIDEO VISIT NO DATE OF NOTE: NOVEMBER 09, 2024@10:30 ENTRY DATE: NOVEMBER 09, 2024@11:28:14 AUTHOR: NATE COHN COSIGNER: URGENCY: STATUS: COMPLETED Gerofit Telehealth Remote Supervised Exercise Note Provided informed consent to receive treatment via Telehealth. mailed and has been made verbally aware of [facility] [place] practices. participated remotely in the Gerofit exercise program today through Zoom. Activities were focused on progression of their individual exercise prescription (cardiorespiratory fitness training, strength training, etc.) and group based exercise sessions to include, but not limited to: flexibility training, balance training & functional circuit training. Exercise class was instructed by Mi Winter and Nate Abraham observed class for safety monitoring. Any questions/concerns [...] participants knowledge. Total Duration (minutes) for session: 60 Address: [facility] Nikita Quiroz; [address] [place] [address]; [place] [id number] Contact Information: , Rosemary Seo [phone] /es/ NATE COHN DPT, [facility]CS Signed: 11/09/2024 11:59 NATE COHN [facility]
--- OUTSIDE RECORDS SUMMARY | 2025-01-21 13:01 | XMS_ITS | Encounter Summary ---
Author Organization [facility] Address [address] [place] [address] Care Team Providers Care Administrative Volunteer Name Role Phone Unavailable Primary Care Provider Unavailabl e Reason for Visit * Reason Comments Low Blood Pressure Encounter Details Date Type Department Care Team (Latest Contact Info) Description 01/20/2025 10:00 AM CDT Clinical Support [facility] Heart and Vascular - [address] [place] [address] Hypotension, unspecified hypotension type (Primary Dx) Social History Tobacco Use Types Packs/Day Years [...] Pulse 108 01/20/2025 10:07 AM CDT Temperature - - Respiratory Rate - - Oxygen Saturation 97% 01/20/2025 10:07 AM CDT Inhaled Oxygen Concentration - - Weight 107 kg (236 lb) 01/20/2025 10:07 AM CDT Height 182.9 cm (6') 01/20/2025 10:07 AM CDT Body Mass Index 32.01 01/20/2025 10:07 AM CDT documented in this encounter Progress Notes * Basia Gorman LPN - 01/20/2025 10:36 AM CDT Pt. sent here for IV fluids. Seen this am in orthopedics and found to be hypotensive. Per BS draw aPOC BMP and give 500 ml of NS. IV placed right forearm. BMP drawn and reviewed by EDMUNDO. Results acceptable. Per Fredis Roberto DC Losartan and send BP readings in 1 week. Pt. and Daughter aware. IV removed. Pressure dressing applied for slight infiltration. Instructed to contact office with any questions or concerns. documented in this encounter Plan of Treatment Upcoming Encounters Date Type Department Care Team (Late st Contact Info) Description 03/03/2025 10:30 AM CDT Office Visit [facility] Orthopedic Surgery - [address] [place] [address] Yayo Degroot MD [address] [place] [address] 04/28/2025 1:45 PM TRUST OFFICER Office Visit [facility] Heart and Vascular - [address] [place] [address] Jasvir Coffey MD [address] [place] [address] documented as of this encounter Procedures Procedure Name Priority Date/Time Associated Diagnosis Comments POC ELECTROLYTES/BMP Routine 01/20/2025 10:35 AM CDT Hypotension, unspecified hypotension type documented in this encounter Results * (ABNORMAL) POC ELECTROLYTES/BMP (01/20/2025 10:35 AM CDT) SODIUM POC 133(A) 138 - 146 mmol/L [...] VASC PTS 1ST DR COMMENT, BMP POC [facility] 1ST Blood 01/20/2025 10:3 5 AM CDT Jasvir Coffey MD POINT OF CARE TESTING Final Res ult [facility] [address] BAKER# [id number] [address] [place] [address] documented in this encounter Visit Diagnoses Diagnosis Hypotension, unspecified hypotension type- Primary documented in this encounter
--- OUTSIDE RECORDS SUMMARY | 2025-01-21 13:01 | XMS_ITS | Encounter Summary ---
Author Name [facility] [place] [facility] [place] Address [address] [place] [address] Care Team Providers Care Technology Coordinator Name Role Phone KARON GARCIA Primary Care [...] B EXC) MAXIMO PALMA Jul 22, 2023 [id number] [phone] GABBI,GE DELONTE PATIENT [employer]ETNA PREFERRED PROVIDER ORGANIZAT ION (PPO) MAXIMO PALMA Apr 22, 2023 [id number] [phone] GABBIRUSSELL RUSHTrudy PATIENT AETNA PREFERRED PROVIDER ORGANIZAT ION (PPO) MAXIMO PALMA Jun 23, 2014 [id number] [phone] RUSSELL SEOTrudy PATIENT AETNA PHARMACY PRESCRIPT ION NONE Feb 11, 2017 NONE [id number] [phone] RUSSELL SEO PATIENT AETNA PHARMACY PRESCRIPT ION NONE Feb 11, 2017 NONE [id number] [phone] RUSSELL SEO PATIENT AETNA RX PRESCRIPT ION RX PLAN Jun 23, 2021 [id number] RUSSELL SEO PATIENT AETNA RX PRESCRIPT ION RX PLAN Jun 23, 2021 [id number] RUSSELL SEO PATIENT AETNA RX PRESCRIPT ION FEHBP Jun 23, 2014 [id number] RUSSELL SEO PATIENT AETNA [facility] PREFERRED PROVIDER ORGANIZAT ION (PPO) MAXIMO PALMA Jun 23, 2014 [id number] RUSSELL SEO PATIENT MEDICARE (WNR) MEDICARE () PART B May 23, 2008 PART B [id number] RUSSELL SEO PATIENT MEDICARE (WNR) MEDICARE () PART B May 23, 2008 PART B [id number] [phone] RUSSELL SEOD PATIENT MEDICARE (WNR) MEDICARE () PART A Apr 23, 2008 PART A [id number] RUSSELL SEO PATIENT MEDICARE (WNR) MEDICARE () PART A Apr 23, 2008 PART A [id number] RUSSELL SEOD PATIENT MEDICARE (WNR) MEDICARE () PART A Apr 23, 2008 PART A [id number] RUSSELL SEOD PATIENT MEDICARE (WNR) MEDICARE () PART B Apr 23, 2008 PART B [id number] RUSSELL SEO PATIENT Selected Encounter This section includes the information on record at [place] for the Encounter. Date/Time Encounter Type Encounter Description Reason Provider Source Sep 06, 2024 10:30 AM PT EDUCATION NOC [facility] ICD-10-CM Z72.3 Lack of physical exercise RUSSELL,JOSE ANGEL P IHE Encounter Template Text not used by [facility] Assessments - Encounter Diagnoses This section includes the primary and secondary diagnoses documented for the Encounter. Date/Time Primary/Secondary Diagnosis Diagnosis Name Provider Source Sep 15, 2024 10:30 AM PRIMARY Lack of physical exercise [facility] Plan of Treatment: Future Appointments (+ 6 months) and Future Tests (+/- 45 days) The Plan of Treatment section includes future care activities for the patient from all [place] treatmentfacilities. This section includes future appointments and future orders which are active, pending or scheduled. Future Appointments This section includes appointments that were scheduled to occur 6 months from the date of the Encounter, up to a maximum of 20 appointments. The data comes from all [place] treatment facilities. Appointment Date/Time Appointment Type Appointme nt Facility Name Sep 22, 2024 11:30 AM AMBULATORY - MEDICINE [facility] November 09, 2024 01:30 PM AMBULATORY - SURGERY [facility] Dec 07, 2024 11:00 AM AMBULATORY - MEDICINE [facility] Dec 27, 2024 10:30 AM AMBULATORY - MEDICINE [facility] Jan 07, 2025 08:00 AM AMBULATORY - NONE [facility] Feb 17, 2025 01:00 PM AMBULATORY - SURGERY [facility] Lab Results: +/- 30 days of the encounter This section includes the Chemistry and Hematology Lab Results on record with [place] for the patient. Radiology Reports and Pathology Reports are provided separately, in subsequent sections. Lab Results This section contains the Chemistry/Hematology Results that were resulted 30 days before or 30 daysafter the date of the Encounter. Date/Time Source Result Type Result - Unit Interpretation Reference Range Specimen Type Comment Sep 22, 2024 11:30 AM [facility] MAGNESIUM PLASMA Specimen Type: PLASMA Comment: No hemolysis noted. Ordering Provider: STEVEN SCHMIDT Report Released Date/Time: Sep 20, 2024 04:29 PM Reporting Lab: [facility] [address] [address] Performing Lab: [facility] [address] [address] MAGNESIUM 1.7 mg/dL 1.6-2.6 Sep 22, 2024 11:30 AM [facility] LIPID PANEL (STL) PLASMA Specimen Type : PLASMA Comment: No hemolysis noted. Ordering Provider: STEVEN SCHMIDT Report Released Date/Time: Sep 20, 2024 04:29 PM Reporting Lab: [facility] [address] [place] [phone] Performing Lab: [facility] [address] [address] CHOLESTEROL 185 mg/dL 0-200 TRIGLYCERIDE 171 mg/dL H 0-150 CALCULATED LDL 115 mg/dL HDL(New) 36 mg/dL L >40 Sep 22, 2024 11:30 AM [facility] HGA1C BLOOD Specimen Type: BLOOD No comment entered. Ordering Provider: STEVEN SCHMIDT Report Released Date/Time: Sep 20, 2024 04:29 PM Reporting Lab: [facility] [address] [place] [phone] Performing Lab: [address] [address] HGA1C 7.4 H 4.0-6.0 Sep 22, 2024 11:30 AM [facility] B12 SERUM Specimen Type: SERUM No comment entered. Ordering Provider: STEVEN SCMHIDT Report Released Date/Time: Sep 20, 2024 04:29 PM Reporting Lab: [facility] [address] Performing Lab: [address] [address] B12 548 pg/mL 213-816 Sep 22, 2024 11:30 AM [facility] TSH W/ REFLEX FT4 (STL) PLASMA Specime n Type: PLASMA No comment entered. Ordering Provider: STEVEN SCHMIDT Report Released Date/Time: Sep 20, 2024 04:29 PM Reporting Lab: [facility] [address] [place] [phone] Performing Lab: [address] [address] TSH 2.029 u[IU]/mL 0.47-5 Sep 22, 2024 11:30 AM [facility] COMPREHENSIVE METABOLIC PANEL PLASMA S pecimen Type: PLASMA Comment: No hemolysis noted. Ordering Provider: STEVEN SCHMIDT Report Released Date/Time: Sep 20, 2024 04:29 PM Reporting Lab: [address] [address] Performing Lab: [address] [address] CREATININE 1.01 mg/dL 0.7-1.3 UREA NITROGEN 15.7 [...] 74.7 >60 Sep 22, 2024 11:30 AM [facility] VITAMIN D, 25-HYDROXY SERUM Specimen Type: SERUM No comment entered. Ordering Provider: STEVEN SCHMIDT Report Released Date/Time: Sep 20, 2024 04:29 PM Reporting Lab: [facility] [address] [place] [phone] Performing Lab: [address] [address] VITAMIN D, 25-HYDROXY 23.7 ng/mL L 30-96 Sep 22, 2024 11:30 AM [facility] BLOOD Specimen Type: BLOOD No comment entered. Ordering Provider: STEVEN SCHMIDT Report Released Date/Time: Sep 20, 2024 04:29 PM Reporting Lab: [address] [address] Performing Lab: [address] [address] WBC 5.0 10*3/uL 3.6-11.2 RBC 4.54 10*6/uL [...] 0.00-0. 20 Sep 22, 2024 11:30 AM [facility] MICRAL/CREAT PROFILE (STL) URINE Spec imen Type: URINE No comment entered. Ordering Provider: STEVEN SCHMIDT Report Released Date/Time: Sep 20, 2024 04:29 PM Reporting Lab: [facility] [address] [place] [phone] Performing Lab: [facility] [address] [place] [phone] URINE ALBUMIN (PB-STL) 7.6 mg/L uACR (STL) 5 mg/g 0-29 CREATININE URINE/OTHERS 158.4 mg/dL 63-1 66 Advance Directives: All historical and current Section Date Range: From patient's date of to the date document was created. This section includes ALL of a patient's completed or amended [place] Advance and Rescinded Directives. The entries below indicate that a directive exists for the patient, but an actual copy is not included with this document. The data comes from all [place] facilities. Date Advance Directives Provider Source Jan [...] the Encounter. The data comes from all [place] treatment facilities. Date/Time Radiology Report Provider Source Sep 28, 2024 10:22 AM KNEE,RIGHT 3 VIEWS: LORETO SEO [id number] -1945 M Exm Date: SEP 28, 2024@10:22 Req Phys: STEVEN SCHMIDT Loc: [facility]-W[facility] PACT 3 PCP (Req'g Loc) [facility] SU[facility] Service: Unknown [address] [address] (Case [id number] COMPLETE) KNEE,RIGHT 3 VIEWS (RAD Detailed) CPT:43862 Proc Modifiers : RIGHT, LATERAL, Stand AP, [place] Reason for Study: B knee pain Clinical History: Report Status: Verified Date Reported: SEP 29, 2024 Date Verified: SEP 29, 2024 Banking Management Consulting Manager E-Sig:/ES/ROBERTO RAWLS MD Report: 3 views COMPARISON: None No acute fracture or dislocation 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 Other: Popcorn like calcification in the central distal femur typical of enchondroma. Probable intra-articular loose bodies Impression: Tricompartmental osteoarthritis Primary Interpreting Staff: ROBERTO RAWLS MD, Radiologist (Banking Management Consulting Manager) /ROBERTO RAIN [facility] Sep 28, 2024 10:22 AM KNEE,LEFT, 3 VIEWS: LORETO SEO [id number] -1945 M Exm Date: SEP 28, 2024@10:22 Req Phys: STEVEN SCHMIDT Loc: [facility]-WASH PACT 3 PCP (Req'g Loc) Im[facility] Service: Unknown [address] [address] (Case [id number] COMPLETE) KNEE,LEFT, 3 VIEWS (RAD Detailed) CPT:67784 Proc Modifiers : LEFT, LATERAL, Stand AP, [place] Reason for Study: B knee pain Clinical History: Report Status: Verified Date Reported: SEP 29, 2024 Date Verified: SEP 29, 2024 Banking Management Consulting Manager E-Sig:/ES/ROBERTO RAWLS MD Report: 3 views COMPARISON: None No acute fracture or dislocation 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 Other: Large intra-articular loose bodies Impression: Tricompartmental osteoarthritis Primary Interpreting Staff: ROBERTO RAWLS MD, Radiologist (Banking Management Consulting Manager) /ROBERTO RAIN [facility] Encounter Notes: All associated encounter notes This section contains the clinical notes associated to the Encounter. Date/Time Encounter Note(s) Provider Source Sep 06, 2024 10:30 AM CARE COORDINATION HOME TELEHEALTH VIDEO VISIT NOTE: LOCAL TITLE: GEROFIT VVC SUPERVISED EXERCISE NOTE [facility] TITLE: CARE COORDINATION HOME TELEHEALTH VIDEO VISIT NO DATE OF NOTE: SEP 06, 2024@10:30 ENTRY DATE: SEP 06, 2024@11:39:10 AUTHOR: [place] [facility] EXP COSIGNER: URGENCY: STATUS: COMPLETED Gerofit Telehealth Remote Supervised Exercise Note Provided informed consent to receive treatment via Telehealth. Mullin mailed and has been made verbally aware of [facility] [place] practices. participated remotely in the Gerofit exercise program today through [employer]. Activities were focused on progression of their individual exercise prescription (cardiorespiratory fitness training, strength training, etc.) and group based exercise sessions to include, but not limited to: flexibility training, balance training & functional circuit training. The exercise class was instructed by Chon Love, and Mi Winter observed class for safety and any technology issues. Any questions/concerns were addressed with the patient. [...] addressed during class for other participants knowledge. Education provided during class: Purpose of warm-up, cooldown, RPE, fall prevention, appropriate intensity levels, proper form for exercises, encouraging out of class exercise, activity recommendations for older adults, appropriate response to exercise, how to progress/modify exercises. Total Duration (minutes) for session: 35 due to not having his bands Address: [address] [place] [address] [address], [place] [id number] Contact Information: , Rosemary Seo [phone] /es/ Mi PATEL Quality Control Tech Signed: 09/06/2024 11:49 [place] [facility]
--- OUTSIDE RECORDS SUMMARY | 2025-01-21 13:02 | XMS_ITS | Encounter Summary ---
Author Name [facility] [place] Address [address] [place] [address] Care Team Providers Care Yeast Supervisor Name Role Phone KARON GARCIA Primary [...] B EXC) MAXIMO PALMA Jul 22, 2023 [id number] GABBI,GE DELONTE PATIENT [employer]ET[employer] PREFERRED PROVIDER ORGANIZAT ION (PPO) MAXIMO PALMA Apr 22, 2023 [id number] [phone] GABBIRUSSELL RUSHTrudy PATIENT AETNA PREFERRED PROVIDER ORGANIZAT ION (PPO) MAXIMO PALMA Jun 23, 2014 [id number] URSSELL SEO PATIENT AETNA PHARMACY PRESCRIPT ION NONE Feb 11, 2017 NONE [id number] [phone] RUSSELL SEO PATIENT AETNA PHARMACY PRESCRIPT ION NONE Feb 11, 2017 NONE [id number] RUSSELL SEO PATIENT AETNA RX PRESCRIPT ION RX PLAN Jun 23, 2021 [id number] RUSSELL SEOD PATIENT AETNA RX PRESCRIPT ION RX PLAN Jun 23, 2021 [id number] RUSSELL SEO PATIENT AETNA RX PRESCRIPT ION FEHBP Jun 23, 2014 [id number] RUSSELL SEO PATIENT AETNA [facility] PREFERRED PROVIDER ORGANIZAT ION (PPO) MAXIMO PALMA Jun 23, 2014 [id number] RUSSELL ESOD PATIENT MEDICARE (WNR) MEDICARE () PART B May 23, 2008 PART B [id number] RUSSELL SEOD PATIENT MEDICARE (WNR) MEDICARE () PART B May 23, 2008 PART B [id number] RUSSELL SEOD PATIENT MEDICARE (WNR) MEDICARE () PART A Apr 23, 2008 PART A [id number] RUSSELL SEOD PATIENT MEDICARE (WNR) MEDICARE () PART A Apr 23, 2008 PART A [id number] [phone] RUSSELL SEOD PATIENT MEDICARE (WNR) MEDICARE () PART A Apr 23, 2008 PART A [id number] RUSSELL SEOD PATIENT MEDICARE (WNR) MEDICARE () PART B Apr 23, 2008 PART B [id number] [phone] RUSSELL SEO PATIENT Selected Encounter This section includes the information on record at [place] for the Encounter. Date/Time Encounter Type Encounter Description Reason Provider Source Feb 05, 2024 12:15 PM OFFICE O/P EST SF 10 MIN GI ENDOSCOPY ICD-10-CM R93.2 Abnormal findings on dx imaging of liver and biliary tract ARSLAN IRELAND [facility] Encounter Template Text not used by [place] Assessments - Encounter Diagnoses This section includes the primary and secondary diagnoses documented for the Encounter. Date/Time Primary/Secondary Diagnosis Diagnosis Name Provider Source Feb 13, 2024 01:23 PM PRIMARY Abnormal findings on dx imaging of liver and biliary tract NELLY LIZARRAGA [facility] Plan of Treatment: Future Appointments (+ 6 months) and Future Tests (+/- 45 days) The Plan of Treatment section includes future care activities for the patient from all [place] [facility]. This section includes future appointments and future orders which are active, pending or scheduled. Future Appointments This section includes appointments that were scheduled to occur 6 months from the date of the Encounter, up to a maximum of 20 appointments. The data comes from all [facility] Appointment Date/Time Appointment Type Appointme nt Facility Name Feb 24, 2024 10:00 AM AM[facility]ULATORY - SUR[facility]ERY [facility] Feb 25, 2024 02:30 PM AMBULATORY - PS[facility]IATRY [facility] Mar 01, 2024 10:30 AM [facility]AT[facility]ERY [facility] Mar 26, 2024 10:30 AM AMBULATORY - MEDICINE [facility] Apr 12, 2024 01:00 PM AMBULATORY - SURGERY [facility] Apr 14, 2024 02:00 PM AMBULATORY - MEDICINE [facility] May 06, 2024 11:00 AM [facility] May 10, 2024 06:00 AM AMBULATORY - NONE [facility] May 12, 2024 01:00 PM [facility] May 19, 2024 01:30 PM [facility]ULATORY [facility]ERY [facility] May 31, 2024 10:00 AM [...] of theEncounter. The data comes from all [facility]. Test Date/Time Test Type Test Details Facility Name Mar 01, 2024 12:00 AM Laboratory - Blood Bank Order TYPE & SCREEN - LAB BLOOD SP [facility] Lab Results: +/- 30 days of the [...] Interpretation Reference Range Specimen Type Comment Mar 01, 2024 12:51 PM [facility] PT/INR NEW (ST-TX) PLASMA Specimen Type: PLASMA No comment entered. Ordering Provider: LEISA MATHIS Report Released Date/Time: Mar 01, 2024 12:16 PM Reporting Lab: [address] [phone] Performing Lab: [address] [address] PROTIME 12.7 s H 9.4-12.5 INR VALUE 1.1 {INR} Mar 01, 2024 12:51 PM [facility] CBC BLOOD Specimen Type: BLOOD No comment entered. Ordering Provider: LEISA MATHIS Report Released Date/Time: Mar 01, 2024 12:16 PM Reporting Lab: [address] [address] Performing Lab: [address] [address] WBC 9.4 10*3/uL 3.6-11.2 RBC 4.90 10*6/uL [...] 0.00-0. 20 Mar 01, 2024 12:51 PM [facility] COMPREHENSIVE METABOLIC PANEL PLASMA Specimen Type: PLASMA Comment: No hemolysis noted. Ordering Provider: LEISA MATHIS Report Released Date/Time: Mar 01, 2024 12:16 PM Reporting Lab: [address] [address] Performing Lab: [address] [address] CREATININE 1.37 mg/dL H 0.7-1.3 UREA NITROGEN [...] H 8-40 EGFR (CKD-EPI 2020) 52.2 >60 Feb 05, 2024 01:14 PM [facility] GLUCOSE,BLOOD-poct (STL) BLOOD Specimen Type: BLOOD Comment: Test Performed by: [id number] Meter #: [id number] Ordering Provider: STEVEN SCHMIDT Report Released Date/Time: Feb 05, 2024 01:26 PM Reporting Lab: [address] [address] Performing Lab: [address] [place] [address] GLUCOSE,BLOOD-poct (STL) 105 mg/dL H 72-99 Advance [...] 14, 2022 ADVANCE DIRECTIVE DISCUSSION SHEA [facility] Radiology Reports: +/- 30 days of [...] PM CHEST X-RAY, 2 VIEWS: LORETO SEO ALON [id number] -1945 M [facility] Date: MAR 01, 2024@13:21 Req Phys: ALY GO Loc: -GEN SURG HEPATOBILIARY (Req Img Loc: -MAIN RADIOLOGY SUITE Service: [address] [address] (Case [id number] COMPLETE) CHEST X-RAY, 2 VIEWS (RAD Detailed) CPT:49432 Reason for Study: preop Clinical History: Report Status: Verified Date Reported: MAR 01, 2024 Date Verified: MAR 01, 2024 Rehabilitation Liaison E-Sig:/ES/Christopher Dumont MD. FACR. Report: History: preop. [...] Interpreting Staff: Christopher Dumont MD. FACR, Neuroradiologist (Rehabilitation Liaison) /CHRISTOPHER BENNETT [facility] Feb 05, 2024 02:47 PM OBSTRUCTIVE SERIES: LORETO SEO [id number] -1945 M Exm Date: FEB 05, 2024@14:47 Req Phys: NELLY LIZARRAGA Pat Loc: -GI/ENDO LAB ANESTHESIA2 (Re Img Loc: -MAIN RADIOLOGY SUITE Service: [facility], [facility] [address] [place] [address] (Case [id number] COMPLETE) OBSTRUCTIVE SERIES (RAD Detailed) CPT:40181 Reason for Study: localize endoscopic clip, placed at lumenal defect, GB fistula? Clinical History: Report Status: Verified Date Reported: FEB 06, 2024 Date Verified: FEB 06, 2024 Rehabilitation Liaison E-Sig:/ES/ALEX DE ANDA MD Report: Case #[id number]. [...] DE ANDA MD, Staff Physician - Radiologist (Rehabilitation Liaison) /ALEX BROWNING [facility] Encounter Notes: All associated encounter notes This section contains the clinical notes associated to the Encounter. Date/Time Encounter Note(s) Provider Source Feb 05, 2024 01:22 PM PREPROCEDURE NOTE: LOCAL TITLE: PHYSICIAN PRE-PROCEDURE ASSESSMENT ST STANDARD TITLE: PREPROCEDURE NOTE DATE OF NOTE: FEB 05, 2024@13:22 ENTRY DATE: FEB 05, 2024@13:22:22 AUTHOR: NELLY LIZARRAGA EXP COSIGNER: ARSLAN IRELAND URGENCY: STATUS: COMPLETED Airway: No significant abnormality Mallampati Score: 2 Neck Extension: Not Limited Teeth: Edentulous Cardiac: No significant abnormality Pulmonary: No significant abnormality Gastrointestinal: No significant abnormality Neurological: No significant abnormality ASA Score: 3 Abdominal and Pelvic Surgical History: n/a Sedation/Anesthesia Plan: Anesthesia consult History of previous adverse reaction to sedation: No Tobacco use: No Alcohol use: No Recreational drug use: No Last oral intake:mn Time spent:10-15 minutes /leobardo/ NELLY LIZARRAGA Gastroenterology Fellow Signed: 02/05/2024 14:04 /leobardo/ ARSLAN IRELAND MD Gastroenterology Staff Physician Cosigned: 02/06/2024 08:29 NELLY LIZARRAGA [facility]
--- OUTSIDE RECORDS SUMMARY | 2025-01-21 13:02 | XMS_ITS | Encounter Summary ---
Author Name [facility] [place] Organization [facility] [place] Address [address] [place] [address] Care Team Providers Care Environmental Health And Safety Intern Name Role Phone KARON GARCIA Primary Care [...] B EXC) MAXIMO PALMA Jul 22, 2023 [id number] [phone] GABBIRUSSELL RUSHTrudy PATIENT [employer] PREFERRED PROVIDER ORGANIZAT ION (PPO) MAXIMO PALMA Apr 22, 2023 [id number] [phone] GABBIRUSSELL RUSHTrudy PATIENT [employer] PREFERRED PROVIDER ORGANIZAT ION (PPO) MAXIMO PALMA Jun 23, 2014 [id number] RUSSELL SEOTrudy PATIENT AETNA PHARMACY PRESCRIPT ION NONE Feb 11, 2017 NONE [id number] RUSSELL SEO PATIENT AETNA PHARMACY PRESCRIPT ION NONE Feb 11, 2017 NONE [id number] [phone] RUSSELL SEO PATIENT AETNA RX PRESCRIPT ION RX PLAN Jun 23, 2021 [id number] RUSSELL SEO PATIENT AETNA RX PRESCRIPT ION RX PLAN Jun 23, 2021 [id number] RUSSELL SEO PATIENT AETNA RX PRESCRIPT ION FEHBP Jun 23, 2014 [id number] [phone] RUSSELL SEO PATIENT AETNA [facility] PREFERRED PROVIDER ORGANIZAT ION (PPO) MAXIMO PALMA Jun 23, 2014 [id number] RUSSELL SEO PATIENT MEDICARE (WNR) MEDICARE () PART B May 23, 2008 PART B [id number] [phone] RUSSELL SEO PATIENT MEDICARE (WNR) MEDICARE () PART B May 23, 2008 PART B [id number] RUSSELL SEOD PATIENT MEDICARE (WNR) MEDICARE () PART A Apr 23, 2008 PART A [id number] [phone] RUSSELL SEO PATIENT MEDICARE (WNR) MEDICARE () PART A Apr 23, 2008 PART A [id number] RUSSELL SEO PATIENT MEDICARE (WNR) MEDICARE () PART A Apr 23, 2008 PART A [id number] [phone] RUSSELL SEOD PATIENT MEDICARE (WNR) MEDICARE () PART B Apr 23, 2008 PART B [id number] [phone] RUSSELL SEO PATIENT Selected Encounter This section includes the information on record at [place] for the Encounter. Date/Time Encounter Type Encounter Description Reason Provider Source Apr 01, 2024 10:30 AM EXERCISE CLASS HEALTH/WELLBEING [facility] ICD-10-CM Z72.3 Lack of physical exercise JENELLE WARNER Encounter Template Text not used by [place] Assessments - Encounter Diagnoses This section includes the primary and secondary diagnoses documented for the Encounter. Date/Time Primary/Secondary Diagnosis Diagnosis Name Provider Source Apr 15, 2024 12:34 PM PRIMARY Lack of physical exercise JENELLE WARNER [facility] Plan of Treatment: Future Appointments (+ 6 months) and Future Tests (+/- 45 days) The Plan of Treatment section includes future care activities for the patient from all [place] treatmentfacilities. This section includes future appointments and future orders which are active, pending or scheduled. Future Appointments This section includes appointments that were scheduled to occur 6 months from the date of the Encounter, up to a maximum of 20 appointments. The data comes from all [facility]. Appointment Date/Time Appointment Type Appointme nt Facility Name Apr 12, 2024 01:00 PM AMBULATORY - SURGERY . Neal [facility] Apr 14, 2024 02:00 PM [facility] May 06[facility] 2024 11:00 AM [facility] May 10, 2024 06:00 AM AMBULATORY - NONE [facility] May 12, 2024 01:00 PM AMBULATORY - MEDICINE [facility] May 19, 2024 01:30 PM AMBULATORY - SURGERY [facility] Neal [facility] May 31, 2024 10:00 AM AMBULATORY - NONE [facility] [facility] Aug 18, 2024 11:41 AM AMBULATORY - MEDICINE [facility] Aug 19, 2024 08:30 AM AMBULATORY - NONE ROMERO CCourtney [facility] Sep 22, 2024 11:30 AM AMBULATORY - MEDICINE [facility] Active, Pending, and Scheduled Orders This section includes a listing of several types of active, pending, and scheduled orders, including clinic medications orders, diagnostic test orders, procedure orders and consult orders; where the start date of the order is 45 days before the date of the Encounter or 45 days after the date of theEncounter. The data comes from all [facility]. Test Date/Time Test Type Test Details Facility Name Mar 01, 2024 12:00 AM Laboratory - Blood Bank Order TYPE & SCREEN - LAB BLOOD SP [facility] Mar 26, 2024 12:00 AM Laboratory - Chemi stry Order CYSTATIN C EGFR PANELS (STL-PB-MA) JADE WAGNER/HEP BLD/PLAS PLASMA SP [facility] Lab Results: +/- 30 days of [...] Type Comment Mar 26, 2024 11:30 AM [facility] MICRAL/CREAT PROFILE (STL) URINE Specimen Typ e: URINE Comment: uALB/CREAT Ratio Unable to be calculated Unable to calculate due to Microalbumin < 5.0 mg/L Ordering Provider: STEVEN SCHMIDT Report Released Date/Time: Mar 26, 2024 08:32 AM Reporting Lab: [facility] [address] [facility] [id number] Performing Lab: [facility] [address] [facility] [id number] URINE ALBUMIN (PB-STL) <5.0 mg/L uACR (STL) comment mg/g 0-29 CREATININE URINE/OTHERS 75.5 mg/dL 63-16 6 Advance Directives: All historical and current Section Date Range: From patient's date of to the date document was created. This section includes ALL of a patient's completed or amended [place] Advance and Rescinded Directives. The entries below indicate that a directive exists for the patient, but an actual copy is not included with this document. The data comes from all [place] facilities. Date Advance Directives Provider Source Jan 14, 2022 ADVANCE DIRECTIVE DISCUSSION SHEA WINTER [facility] Encounter Notes: All associated encounter notes This section contains the clinical notes associated to the Encounter. Date/Time Encounter Note(s) Provider Source Apr 01, 2024 07:48 PM CARE COORDINATION HOME TELEHEALTH VIDEO VISIT NOTE: LOCAL TITLE: GEROFIT VVC SUPERVISED EXERCISE NOTE STL STANDARD TITLE: CARE COORDINATION HOME TELEHEALTH VIDEO VISIT NO DATE OF NOTE: APR 01, 2024@19:48 ENTRY DATE: APR 01, 2024@19:48:51 AUTHOR: JENELLE WARNER EXP COSIGNER: URGENCY: STATUS: COMPLETED Gerofit Telehealth Remote Supervised Exercise Note Provided informed consent to receive treatment via Telehealth. mailed and has been made verbally aware of [facility] [place] practices. [place] participated remotely in the Gerofit exercise program today through [place] Virtual Social Services Assistant. Activities were focused on progression of their individual exercise prescription (cardiorespiratory fitness training, strength training, etc.) and group based exercise sessions to include, but not limited to: flexibility training, balance training & functional circuit training. Exercise participation was supervised remotely Miriam Estrada PT and Jenelle Warner PT. Jenelle Warner DPT instructed cardio, strength and stretching. Any questions/concerns were addressed with the patient. Modifications were made to programming as appropriate to suit Veterans individual needs, preferences, and whole health concerns. Total Duration (minutes) for session: 90 Total Duration (minutes) for session: 90 Address: [address] [place] [address] [place] [address] Contact Information: Rosemary [phone] /es/ JENELLE WARNER Physical Therapist Signed: 04/01/2024 20:05 JENELLE WARNER [facility]
--- OUTSIDE RECORDS SUMMARY | 2025-01-21 13:02 | XMS_ITS | Encounter Summary ---
Author Name [facility] [place] Address [address] [place] [address] Care Team Providers Care Canned Food Reconditioning Inspector Name Role Phone KARON GARCIA Primary Care [...] B EXC) MAXIMO PALMA Jul 22, 2023 [id number] GABBI,RUSSELL MARTEL PATIENT AETNA PREFERRED PROVIDER ORGANIZAT ION (PPO) MAXIMO PALMA Apr 22, 2023 [id number] [phone] GABBI,RUSSELL MARTEL PATIENT [employer]ETNA PREFERRED PROVIDER ORGANIZAT ION (PPO) MAXIMO PALMA Jun 23, 2014 [id number] GABBIRUSSELL RUSHTrudy PATIENT AETNA PHARMACY PRESCRIPT ION NONE Feb 11, 2017 NONE [id number] [phone] RUSSELL SEO PATIENT AETNA PHARMACY PRESCRIPT ION NONE Feb 11, 2017 NONE [id number] [phone] RUSSELL SEO PATIENT AETNA RX PRESCRIPT ION RX PLAN Jun 23, 2021 [id number] RUSSELL SEO PATIENT AETNA RX PRESCRIPT ION RX PLAN Jun 23, 2021 [id number] RUSSELL SEO PATIENT AETNA RX PRESCRIPT ION FEHBP Jun 23, 2014 [id number] RUSSELL SEO PATIENT AETNA [facility] PREFERRED PROVIDER ORGANIZAT ION (PPO) MAXIMO PALMA Jun 23, 2014 [id number] RUSSELL SEO PATIENT MEDICARE (WNR) MEDICARE () PART B May 23, 2008 PART B [id number] RUSSELL SEO PATIENT MEDICARE (WNR) MEDICARE () PART B May 23, 2008 PART B [id number] [phone] RUSSELL SEO PATIENT MEDICARE (WNR) MEDICARE () PART A Apr 23, 2008 PART A [id number] RUSSELL SEO PATIENT MEDICARE (WNR) MEDICARE () PART A Apr 23, 2008 PART A [id number] RUSSELL SEO PATIENT MEDICARE (WNR) MEDICARE () PART A Apr 23, 2008 PART A [id number] [phone] RUSSELL SEO PATIENT MEDICARE (WNR) MEDICARE () PART B Apr 23, 2008 PART B [id number] [phone] RUSSELL SEO PATIENT Selected Encounter This section includes the information on record at [place] for the Encounter. Date/Time Encounter Type Encounter Description Reason Provider Source Jun 28, 2024 10:30 AM PT EDUCATION NOC INDIVID HEALTH/WELLBEING [facility] ICD-10-CM Z72.3 Lack of physical exercise BORROWMAN,JESSICA ENZIE E IHE Encounter Template Text not used by [place] Assessments - Encounter Diagnoses This section includes the primary and secondary diagnoses documented for the Encounter. Date/Time Primary/Secondary Diagnosis Diagnosis Name Provider Source Jul 08, 2024 04:31 PM PRIMARY Lack of physical exercise ABEL ANDREA [facility] Plan of Treatment: Future Appointments (+ 6 months) and Future Tests (+/- 45 days) The Plan of Treatment section includes future care activities for the patient from all [place] treatmentfacilities. This section includes future appointments and future orders which are active, pending or scheduled. Future Appointments This section includes appointments that were scheduled to occur 6 months from the date of the Encounter, up to a maximum of 20 appointments. The data comes from all [place] treatment facilities. Appointment Date/Time Appointment Type Appointme nt Facility Name Aug 18, 2024 11:41 AM AMBULATORY - MEDICINE EMERITA Daniel. [facility] Aug 19, 2024 08:30 AM AMBULATORY - NONE ROMERO Daniel. [facility] Sep 22, 2024 11:30 AM AMBULATORY - MEDICINE [facility] November 09, 2024 01:30 PM AMBULATORY - SURGERY . [facility] Dec 07, 2024 11:00 AM AMBULATORY - MEDICINE [facility] Advance Directives: All historical and current Section Date Range: From patient's date of to the date document was created. This section includes ALL of a patient's completed or amended [place] Advance and Rescinded Directives. The entries below indicate that a directive exists for the patient, but an actual copy is not included with this document. The data comes from all [facility]. Date Advance Directives Provider Source Jan 14, 2022 ADVANCE DIRECTIVE DISCUSSION SHEA WINTER. [facility] Encounter Notes: All associated encounter notes This section contains the clinical notes associated to the Encounter. Date/Time Encounter Note(s) Provider Source Jun 28, 2024 10:30 AM CARE COORDINATION HOME TELEHEALTH VIDEO VISIT NOTE: LOCAL TITLE: GEROFIT VVC SUPERVISED EXERCISE NOTE [facility] STANDARD TITLE: CARE COORDINATION HOME TELEHEALTH VIDEO VISIT NO DATE OF NOTE: JUN 28, 2024@10:30 ENTRY DATE: JUN 28, 2024@13:37:49 AUTHOR: GREG ANDREA EXP COSIGNER: URGENCY: STATUS: COMPLETED GEROFIT-SUPERVISED EXERCISE NOTE participated in the Gerofit exercise program today. Activities were focused on progression of his/her individual exercise prescription (cardiorespiratory fitness training, strength training, etc.) and group based exercise sessions to include, but not limited to: flexibility training, balance training, functional circuit training, Torsten Chi for arthritis, and other functional strength and neuromotor exercises. Exercise participation was supervised by [facility] staff and any questions/concerns were addressed with the [...] Total Duration (minutes) for session: 90 Address: [address] [place] [address] [address] [place] [address] Contact Information: Rosemary [phone] /leobardo/ GREG ANDREA PT,JAIDA PHYSICAL THERAPIST Signed: 06/28/2024 14:00 Receipt Acknowledged By: 06/30/2024 08:47 /es/ JOSE ANGEL WELLS PHYSICAL THERAPIST, DPT, GREG DUARTE [facility]
--- OUTSIDE RECORDS SUMMARY | 2025-01-21 13:02 | XMS_ITS ---
[facility] HOSPITALIZATION [facility] Encounter Summary Created on: January 21, 2025 LORETO SEO : 1945 Sex: Male Author Name [employer] [place] Address [address] [place] [address] Care Team Providers Care Internet Marketing Specialist Name Role Phone KARON GARCIA Primary [...] B EXC) MAXIMO PALMA Jul 22, 2023 [id number] RUSSELL SEOTrudy PATIENT [employer] PREFERRED PROVIDER ORGANIZAT ION (PPO) MAXIMO PALMA Apr 22, 2023 [id number] [phone] RUSSELL SEOTrudy PATIENT [employer] PREFERRED PROVIDER ORGANIZAT ION (PPO) MAXIMO PALMA Jun 23, 2014 [id number] RUSSELL SEOTrudy PATIENT AETNA PHARMACY PRESCRIPT ION NONE Feb 11, 2017 NONE [id number] [phone] RUSSELL SEO PATIENT [employer] PHARMACY PRESCRIPT ION NONE Feb 11, 2017 NONE [id number] RUSSELL SEO PATIENT [employer] RX PRESCRIPT ION RX PLAN Jun 23, 2021 [id number] RUSSELL SEO PATIENT AETNA RX PRESCRIPT ION RX PLAN Jun 23, 2021 [id number] RUSSELL SEO PATIENT AETNA RX PRESCRIPT ION FEHBP Jun 23, 2014 [id number] RUSSELL SEO PATIENT AETNA [facility] PREFERRED PROVIDER ORGANIZAT ION (PPO) MAXIMO PALMA Jun 23, 2014 [id number] RUSSELL SEO PATIENT MEDICARE (WNR) MEDICARE () PART B May 23, 2008 PART B [id number] [phone] RUSSELL SEO PATIENT MEDICARE (WNR) MEDICARE () PART B May 23, 2008 PART B [id number] RUSSELL SEOD PATIENT MEDICARE (WNR) MEDICARE () PART A Apr 23, 2008 PART A [id number] [phone] RUSSELL SEOD PATIENT MEDICARE (WNR) MEDICARE () PART A Apr 23, 2008 PART A [id number] RUSSELL SEOD PATIENT MEDICARE (WNR) MEDICARE () PART A Apr 23, 2008 PART A [id number] [phone] RUSSELL SEOD PATIENT MEDICARE (WNR) MEDICARE () PART B Apr 23, 2008 PART B [id number] RUSSELL SEO PATIENT Selected Encounter This section includes the information on record at [place] for the Encounter. Date/Time Encounter Type Encounter Description Reason Pro vider Source May 10, 2024 12:31 PM Inpatient Visit HOSPITALIZATION ICD-10-CM Z48.815 Encntr for surgical aftcr following surgery on the dgv SWETA Lopez Encounter Template Text not used by [place] Assessments - Encounter Diagnoses This section includes the primary and secondary diagnoses documented for the Encounter. 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 [facility] May 11, 2024 12:03 PM SECONDARY Benign prostatic hyperplasia without lower urinry tract symp [facility] May 11, 2024 12:03 PM SECONDARY Encntr for surgical aftcr following surgery on the dgstv sys [facility] May 11, 2024 12:03 PM SECONDARY Essential (primary) hypertension [facility] May 11, 2024 12:03 PM SECONDARY Fistula of gallbladder [facility] May 11, 2024 12:03 PM SECONDARY Gastro-esophageal reflux disease without esophagitis [facility] May 11, 2024 12:03 PM SECONDARY Presence of coronary angioplasty implant and graft [facility] May 11, 2024 12:03 PM SECONDARY Type 2 diabetes mellitus without complications [facility] Plan of Treatment: Future Appointments (+ 6 months) and Future Tests (+/- 45 days) The Plan of Treatment section includes future care activities for the patient from all [facility]. This section includes future appointments and future orders which are active, pending or scheduled. Future Appointments This section includes appointments that were scheduled to occur 6 months from the date of the Encounter, up to a maximum of 20 appointments. The data comes from all [place] treatment [facility]. Appointment Date/Time Appointment Type Appointme nt Facility Name May 12, 2024 01:00 PM [facility] May 19, 2024 01:30 PM AM[facility]ULATORY - SURGERY [facility] Neal [facility] May 31, 2024 10:00 AM AMBULATORY - NONE [facility] Aug 18, 2024 11:41 AM AMBULATORY - MEDICINE EMERITA Samuels [facility] Aug 19, 2024 08:30 AM AMBULATORY - NONE ROMERO CCourtney [facility] Sep 22, 2024 11:30 AM AMBULATORY - MEDICINE [facility] Active, Pending, and Scheduled Orders This section includes a listing of several types of active, pending, and scheduled orders, including clinic medications orders, diagnostic test orders, procedure orders and consult orders; where the start date of the order is 45 days before the date of the Encounter or 45 days after the date of theEncounter. The data comes from all [place] treatment facilities. Test Date/Time Test Type Test Details Facility Name Mar 26, 2024 12:00 AM Laboratory - Chemi stry Order CYSTATIN C EGFR PANELS (STL-PB-[place]) GREEN LI/HEP BLD/PLAS PLASMA SP [facility] Lab Results: +/- 30 days of [...] Type Comment May 11, 2024 05:42 AM [facility] GLUCOSE,BLOOD-poct (STL) BLOOD Specimen Type: BLOOD Comment: Test Performed by: [id number] Meter #: [id number] Ordering Provider: DARY MORRISON Report Released Date/Time: May 11, 2024 06:36 AM Reporting Lab: [facility] [address] [facility] [phone] Performing Lab: [facility] [address] [facility] [place] [address] GLUCOSE,BLOOD-poct (STL) 154 mg/dL H 72-99 May 11, 2024 12:40 AM [facility] BASIC METABOLIC PANEL PLASMA Specimen Type: PL ASMA Comment: No hemolysis noted. Ordering Provider: EDDIE HAYES Report Released Date/Time: May 10, 2024 11:48 PM Reporting Lab: [facility] [address] [facility] [phone] Performing Lab: [facility] [address] [facility] [address] CREATININE 1.14 mg/dL 0.7-1.3 UREA NITROGEN 17.3 mg/dL 9.0-25.0 GLUCOSE 236 mg/dL H 72-99 SODIUM 136 meq/L 136-145 POTASSIUM 4.3 meq/L 3.5-5 CHLORIDE 105 meq/L 98-107 CARBON DIOXIDE 21 meq/L L 22-31 CALCIUM 9.2 mg/dL 8.4-10.4 EGFR (CKD-EPI 2020) 64.6 >60 May 11, 2024 12:40 AM [facility] CBC BLOOD Specimen Type: BLOOD No comment entered. Ordering Provider: EDDIE HAYES Report Released Date/Time: May 10, 2024 11:48 PM Reporting Lab: [address] [address] Performing Lab: [address] [address] WBC 13.3 10*3/uL H 3.6-11.2 RBC 4.49 [...] 0.00-0. 20 May 10, 2024 08:21 PM [facility] GLUCOSE,BLOOD-poct (STL) BLOOD Specimen Type: BLOOD Comment: Test Performed by: [id number] Meter #: [id number] Ordering Provider: LORELEI MORRISON Report Released Date/Time: May 10, 2024 09:18 PM Reporting Lab: [facility] [address] [facility] [address] Performing Lab: [facility] [address] [place] [phone] GLUCOSE,BLOOD-poct (STL) 192 mg/dL H 72-99 May 10, 2024 04:13 PM [facility] GLUCOSE,BLOOD-poct (STL) BLOOD Specimen Type: BLOOD Comment: Test Performed by: [id number] Meter #: [id number] Ordering Provider: LORELEI MORRISON Report Released Date/Time: May 10, 2024 05:13 PM Reporting Lab: [facility] [address] [place] [phone] Performing Lab: [address] [address] GLUCOSE,BLOOD-poct (STL) 156 mg/dL H 72-99 May 10, 2024 12:47 PM [facility] MRSA SURVL NARES DNA NARES Specimen Type: [...] May 10, 2024 12:47 PM Reporting Lab: [place] [address] [facility] [address] Performing Lab: [address] [address] MRSA SURVL NARES DNA Negative Negative May 10, 2024 06:30 AM [facility] GLUCOSE,BLOOD-poct (STL) BLOOD Specimen Type: BLOOD Comment: Test Performed by: [id number] Meter #: [id number] Ordering Provider: BANDAR LONGORIA Report Released Date/Time: May 10, 2024 06:43 AM Reporting Lab: [facility] [address] [facility] [address] Performing Lab: [facility] [address] [facility] [address] GLUCOSE,BLOOD-poct (STL) 174 mg/dL H 72-99 Vital Signs: All taken on the encounter date This section contains inpatient and outpatient Vital Signs collected on the date of the Encounter. Date/Time Temperature Pulse Blood Pressure Respiratory Rate SP02 Pain Height Weight Body Mass Index Source May 10, 2024 08:19 PM 98.5 107 153/79 18 93 0 [facility] May 10, 2024 06:05 PM 97.5 105 149/79 18 94 [facility] May 10, 2024 01:23 PM 0 [facility] May 10, 2024 12:43 PM 97.5 84 159/73 18 96 [facility] May 10, 2024 06:30 AM 97.5 79 130/61 19 99 0 72 222 30 [facility] Advance Directives: All historical [...] SHEA WINTER [facility] Pathology Reports: +/- 30 days of [...] the Encounter. The data comes from all [facility] treatment facilities. Date/Time Pathology Report Provider Source [...] - - POSTOPERATIVE DIAGNOSIS: Cholecystocolonic fistula Surgeon/physician: ARACELI MATHIS =-=-=-=-=-=-=-=-=-=-=-=-=-=- =-=-=-=-=-=-=-=-=-=-=-=-=-=- =-=-=-=-=-=-=-=-=-=-=-= - - - [...] Laboratory: Surgical Pathology Report Performed By: [address] [id number] [address] [address] $FTR - - - - - - [...] - - LORETO SEO STANDARD FORM 515 ID:[id number] SEX:M :1945 AGE: 79 LOC:APFEE PCP: Lorelei Morrison MD /leobardo/ CONCETTA GOMEZ Pathologist Signed: 05/11/2024 12:18 CONCETTA GOMEZ [facility] Encounter Notes: All associated encounter notes This section contains the clinical notes associated to the Encounter. Date/Time Encounter Note(s) Provider Source May 11, 2024 12:20 PM NURSING NOTE: LOCAL TITLE: MAAES NSG IV INSERTION AND MAINTENANCE STANDARD TITLE: NURSING NOTE DATE OF NOTE: MAY 11, 2024@12:20 ENTRY DATE: MAY 11, 2024@12:20:21 AUTHOR: YESI SWARTZ EXP COSIGNER: URGENCY: STATUS: COMPLETED Version 2.2 Charting in accordance with [facility] [place] STANDARD (MAAES) ACUTE INPATIENT/REHABILITATION NURSING ADMISSION SCREENING, ASSESSMENT, AND STANDARDS OF CARE IV Line Insertion and Maintenance Peripheral IV Line #1: Discontinue: Location: Right, Wrist Date/Time: Apr@12:00 Reason for discontinuation: Therapy complete Line #2: Discontinue: Location: Left Date/Time: Apr@12:00 Reason for discontinuation: Therapy complete /es/ YESI SWARTZ Registered Nurse Signed: 05/11/2024 12:21 YESI SWARTZ [facility] May 11, 2024 12:14 PM NURSING TRANSFER SUMMARIZATION DISCHARGE NOTE: LOCAL TITLE: JOHNNY DISCHARGE/TRANSFER SUMMARY ST STANDARD TITLE: NURSING TRANSFER SUMMARIZATION DISCHARGE NOTE DATE OF NOTE: MAY 11, 2024@12:14 ENTRY DATE: MAY 11, 2024@12:15:01 AUTHOR: YESI SWARTZ EXP COSIGNER: URGENCY: STATUS: COMPLETED DISCHARGE - TRANSFER SUMMARY Action: Discharge Diagnosis: Last Admission: 05/10/24 12:31:54 pm Admit Dx: CHOLECYSITIS Age: 79 Allergies: Patient has answered NKA Patient Condition: Stable Vital Signs: Temperature: 98.7 F [37.1 C] (05/11/2024 08:58) Pulse: 67 (05/11/2024 08:58) Respiration: 20 (05/11/2024 08:58) Blood Pressure: 143/69 (05/11/2024 08:58) Pain: 0 (05/11/2024 08:58) Fall Risk Assessment Score: Fall Risk Level: Low Risk SUICIDE SCREEN [place] Suicide Severity Rating Scale (C-SSRS) 1. Over the past month, have you wished you were or wished you could go to sleep and not wake up? No 2. Over the past month, have you had any actual thoughts of killing yourself? No 3. Over the past month, have you been thinking about how you might do this? Response not required due to responses to other questions. 4. Over the past month, have you had these thoughts and had some intention of acting on them? Response not required due to responses to other questions. 5. Over the past month, have you started to work out or worked out the details of how to kill yourself? Response not required due to responses to other questions. 6. If yes, at any time in the past month did you intend to carry out this plan? Response not required due to responses to other questions. 7. In your lifetime, have you ever done anything, started to do anything, or prepared to do anything to end your life (for example, collected pills, obtained a gun, gave away valuables, went to the roof but didn't jump)? No 8. If YES, was this within the past 3 months? Response not required due to responses to other questions. C-SSRS Screen is Negative Isolation: No Precautions: Fall Orientation: x3 Hygiene: Self Care Nutrition: Regular diet Special needs: Assistance: Independent Bowel/Bladder: Date of last bowel movement: Apr Defecation: Normal Able to void: YES Continent: YES Catheter: No Wound / Skin Condition: Assessment Type: SKIN REINSPECTION/REASSESSMENT SKIN INSPECTION: Skin Color: Usual for ethnicity Skin Temperature: Warm Skin Moisture: Normal, Dry Skin Turgor: Elastic (normal/immediate) Nancy Skin Assessment: The patient's Nancy Scale Score is 20. The patient is considered not at risk for development of pressure ulcers/injuries. Sensory perception -- ability to respond meaningfully to pressure-related discomfort No impairment. Moisture -- degree to which skin is exposed to moisture Rarely moist. Activity -- ability to change and control body position Walks occasionally. Mobility -- ability to change and control body position Slightly limited. Nutrition -- usual food intake patterns Adequate. Friction and shear No apparent problem. INTERVENTIONS: The pressure injury interventions were not needed - patient/resident is not at risk. RISK FACTORS THAT INCREASE RISK FOR DEVELOPING PRESSURE INJURIES The patient/resident does not have any additional risk factors. SKIN ALTERATIONS: Wound Documentation from the past year: Skin Assessment 05/11/2024 Skin Integrity - Wound 05/10/2024 Skin Integrity - Wound SKIN/WOUND DRESSING: Location(s): [facility] D/I Clean Dry Intact Dressing change per order STANDARD OF CARE / PRACTICE IMPLEMENTED: Indicate status at Discharge/Transfer: Stabilized Flu Shot Given: No Patient refused Pneumococcal Shot Given: No Patient refused MRSA Discharge Swab Done: No Reason: Done at admission Discharged/Transfered to: Own home without home care services Accompanied by (Name & Relationship): Next of Kin notified: NO Discharge/Transfer Mode: Ambulatory Discharged/Transferred with: Written Discharge Instructions Medications Return Appointments The [place] was informed of the date and time of his/her follow-up mental health appointments: The [place] was provided the opportunity to cancel or change his/her scheduled follow-up mental health appointments: The [place] was educated about what to do and who to contact should he/she need to cancel the follow-up mental health appointment: Clothing / Valuables returned: Yes Describe: cell phone, clothes, shoes Prosthetics with patient: Dentures/Partials with patient: None Glasses with patient: YES Other: NO Printed MD Instruction sheet with medication list reviewed and given to the patient/caregiver. Patient/Caregiver verifies medication list is complete and accurate. Patient/Caregiver appeared ready for instruction (good eye contact, appropriate questions, active participation, etc) Person(s) who received education: Patient Spouse/Significant Other Education Topic/Teaching Needs: Disease/Condition Medication Follow-up Instructions Methods used Included: A copy of the Discharge Instructions Health Summary given to patient/caregiver and signed by patient/guardian. Patient's medications were reviewed and reconciled by discharge team. Teaching outcomes: Good level of understanding /leobardo/ YESI SWARTZ Registered Nurse Signed: 05/11/2024 12:19 YESI SWARTZ [facility] May 11, 2024 12:12 PM NURSING NOTE: LOCAL TITLE: JOHNNY PROGRESS NOTE STL STANDARD TITLE: NURSING NOTE DATE OF NOTE: MAY 11, 2024@12:12 ENTRY DATE: MAY 11, 2024@12:12:50 AUTHOR: YESI SWARTZ EXP COSIGNER: URGENCY: STATUS: COMPLETED 1200: D/C pt per MD order,A&O,VSS.NAD, D/C instructions given,Abd drsg/KASHIF drain D/I, WNL, Pt and verbalized back understanding. Pt took all of his belongings and went home with . /susana SWARTZ Registered Nurse Signed: 05/11/2024 12:14 YESI SWARTZ [facility] May 11, 2024 12:03 PM DISCHARGE SUMMARY: LOCAL TITLE: DISCHARGE OBSERVATION SURGERY ST STANDARD TITLE: DISCHARGE SUMMARY DICT DATE: MAY 11, 2024@06:21 ENTRY DATE: MAY 11, 2024@06:21:35 DICTATED BY: LORELIE MORRISON ATTENDING: ARACELI MATHIS URGENCY: routine STATUS: COMPLETED PRINCIPAL DIAGNOSIS: Chronic Cholecystitis SECONDARY DIAGNOSES: Significant Medical Problems PRESENT on Admission: Hypertension, Coronary Artery Disease, Benign Prostatic Hyperplasia Significant Medical Problems NOT PRESENT on Admission: Not Applicable OPERATIVE/INVASIVE PROCEDURES: Laparoscopic cholecystectomy on 05/10/24 ATTENDING PHYSICIAN: Araceli Mathis M.D. BRIEF HISTORY AND ESSENTIAL PHYSICAL FINDINGS: LORETO SEO is a 79-year-old MALE with CAD s/p stent placement (2004), T2DM, GERD who presents for surgical management of gallbladder-colonic fistula. Patient was last seen in clinic with Dr. Mathis on 03/01/24, at which time patient had undergone barium enema without findings of colonic fistula (12/09/23) and a colonoscopy, that was overall benign with small area of granular mucosa found at hepatic flexure without any bile noted to be draining from this site. HOSPITAL COURSE: Patient underwent laparoscopic cholecystectomy on 05/10/24; intra-operatively, dense adhesions were noted between colonic mesentery and omentum to the gallbladder, however no specific communication noted. KASHIF drain placed and patient admitted post-operatively for observation. On POD1, he was voiding spontaneously, tolerating a diet, pain was controlled, KASHIF drain with 20cc sang>serous output. He underwent KASHIF drain teaching and was discharged home with plan to follow up in 1-2 weeks for evaluation. CONDITION ON DISCHARGE: Stable FOLLOW-UP: 05/31/2024 10:00 [facility] PACT NUTRI IND INPATIENT APPOINTMENT 06/10/2024 11:00 [facility] SHANICE IND HARJIT PSI INPATIENT APPOINTMENT 06/14/2024 11:00 [facility] PHONE NURSE INPATIENT APPOINTMENT 09/22/2024 11:30 [facility] PACT 3 PCP INPATIENT APPOINTMENT 02/17/2025 13:00 [facility]-OPTOMETRY 4 INPATIENT APPOINTMENT NON-VA FOLLOW-UP CARE: N/A DISCHARGE MEDICATIONS: Active Outpatient Medications (including Supplies): [...] (APAP) FROM ALL MEDS. 20 Total Medications ALLERGIES OR DRUG SENSITIVITIES: Patient has answered NKA DIET: regular ACTIVITY: No lifting greater than 10 pounds prior to follow up visit. INFORMATION REGARDING CONDITION OR PROPER HOME AND/OR WOUND CARE: Your incisions are closed with absorbable suture and skin glue; you can shower today but do not submerge under water (take bath, swim) until follow up appointment. You have a KASHIF drain in place; you should strip this (press on the tubing and pull towards the bulb/away from your body) every 8 hours while awake to prevent clots. You could also measure the output every 8 hours and keep a record of this at home. Bring this information to your follow up appointment. RETURN TO WORK: in 1 week DISPOSITION: [x] Discharge home [ ] Discharge to home hospice [ ] Transfer to group home [ ] Transfer to rehab [ ] Transfer to psychiatry [ ] Transfer to Spinal cord injury unit [ ] Transfer to hospice [ ] Transfer to outside facility: [ ] Transfer to outside facility under hospice: [ ] : autopsy approved by Next of Kin [ ] : autopsy not approved by Next of Kin [ ] : autopsy resulting from gaming worker's case [ ] Other: COMPETENCY: [x] The patient is competent in the VA sense of the word. [ ] The patient is not competent in the VA sense of the word. TOTAL TIME SPENT FOR FINAL HOSPITAL DISCHARGE: 60 minutes. Verified By MRT/NEO /leobardo/ LORELEI MORRISON MD Signed: 05/11/2024 13:13 /leobardo/ ARACELI MATHIS SURGEON Cosigned: 05/18/2024 20:37 LORELEI MORRISON [facility] May 11, 2024 08:59 AM NURSING INPATIENT NOTE: LOCAL TITLE: [facility] NURSING FREQUENT DOCUMENTATION STANDARD TITLE: NURSING INPATIENT NOTE DATE OF NOTE: MAY 11, 2024@08:59 ENTRY DATE: MAY 11, 2024@08:59:30 AUTHOR: YESI SWARTZ EXP COSIGNER: URGENCY: STATUS: COMPLETED Version 2.4 Charting in accordance with [place] APPROVED [place] STANDARD ([facility]) ACUTE INPATIENT/REHABILITATION NURSING ADMISSION SCREENING, ASSESSMENT, AND STANDARDS OF CARE NATIONAL EARLY WARNING SCORE (NEWS) The following vital measurements were used to complete the NEWS. Measurement DT TEMP PULSE RESP BP POx F(C) (L/MIN)(%) 05/11/2024 08:58 98.7(37.1) 67 20 143/69 96 The NEWS total is 0. 1. Temperature (C/F): Score = 0 36.1 - 38.0 C (96.9 - 100.4 F) 2. Pulse: Score = 0 51-90 3. Respirations: Score = 0 12-20 4. Blood Pressure (Only Systolic BP, mmHg): Score = 0 111-219 5. Pulse Oximetry: Score = 0 96% or greater 6. Supplemental oxygen in use: Score = 0 No 7. AVPU: Score = 0 Alert Patient Status: Remains on unit /leobardo/ YESI SWARTZ Registered Nurse Signed: 05/11/2024 09:[address] [facility] May 11, 2024 12:10 AM NURSING INPATIENT NOTE: LOCAL TITLE: MAAES ACUTE INPATIENT NSG SHIFT ASSESSMENT STANDARD TITLE: NURSING INPATIENT NOTE DATE OF NOTE: MAY 11, 2024@00:10 ENTRY DATE: MAY 11, 2024@02:51:47 AUTHOR: KATHERIN ZUNIGA COSIGNER: URGENCY: STATUS: COMPLETED VAAES ACUTE INPATIENT NSG SHIFT ASSESSMENT Has ADDENDA Version 2.2 Charting in accordance with [place] APPROVED [place] STANDARD (MAAES) ACUTE INPATIENT/REHABILITATION NURSING ADMISSION SCREENING, ASSESSMENT, AND STANDARDS OF CARE ASSESSMENT HANDOFF Bedside report and handoff completed Comment: From [place] PAIN ASSESSMENT Patient's acceptable pain goal: Are you currently experiencing pain? No: Pain Score: 3 JUNIOR FALL SCALE & TIPS PROGRAM Junior Fall Scale: The Junior Fall scale was performed and score was 15. This is indicative of low risk of falls. History of falling: immediate or within 3 months? No Secondary diagnosis: Yes Ambulatory aid: None/bedrest/nurse assist Intravenous therapy/Heparin lock: No Gait/Transferring: Normal/bed rest/immobile Mental Status: Oriented to own ability/knows own limitations Fall Tailoring Interventions for Patient Safety (TIPS) Fall TIPS initiated with patient: Yes Interventions: Assistance out of bed: Call for assistance before getting out of bed Fall TIPS reviewed with patient: Yes Interventions: Assistance out of bed: Call for assistance before getting out of bed ENVIRONMENTAL SAFETY MANAGEMENT Implemented safety standards of care: -Prosperity to unit & environment -Adequate room lighting -Bed in low and locked position -Call light within reach -Personal items within reach -Traffic path in room free of clutter -Non-slip footwear -Upper/half length side rails up for bed mobility -Sensory aids within reach -Encourage patient to utilize sensory support NEUROLOGICAL Neurological Orientation: Oriented x4 Level of Consciousness (AVPU): Alert = Appears aware of and responsive to the environment on their own. Follows commands, opens eyes spontaneously, and tracks objects. Affect/behavior: Cooperative Calm 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 Bilateral: Strong Upper Extremity Bilateral: Full strength Lower Extremity Bilateral: Full strength Sensation: Upper Extremity Sensation Bilateral: Intact Lower Extremity Sensation Bilateral: Intact Temperature: Upper Extremity Temperature Bilateral: Warm Lower Extremity Temperature Bilateral: Warm CARDIOVASCULAR Heart Sounds: Normal (S1S2) Heart Rate/Rhythm (without government operations consultant): Regular Edema: None RESPIRATORY Respirations: Unlabored Pattern: Regular Breath Sounds Auscultated: Anterior only Left Upper Lobe: Clear Right Upper Lobe: Clear Right Middle Lobe: Clear Left Lower Lobe: Clear Right Lower Lobe: Clear GASTROINTESTINAL No bowel movement reported by patient Abdominal Description: Rounded Palpation: Soft, Non-tender Bowel Sounds: RUQ: Active LUQ: Active RLQ: Active LLQ: Active GENITOURINARY Elimination: Continent INTEGUMENTARY/SKIN/WOUND - (INCLUDING NANCY) SEE NOTE: VAAES SKIN INPECTION/ASSESSMENT ACTIVITIES OF DAILY LIVING Hygiene ADLs: Oral Care: Non-ventilator patient: Patient teeth brushed: Independently The [place] was educated that poor oral hygiene increases the risk of hospital acquired pneumonia and dental problems like gingivitis and tooth decay. was educated using their preferred method and verbalized understanding. MOBILITY Mobility Status: Independent: Gait: Steady IV LINES Peripheral IV: Line #1: Assessment: Location: Left, Wrist Gauge: 18 Dressing Condition: Site Condition: Line Status: DRAINS AND OTHER TUBES Drain/Tube #1: Location: R Flank - KASHIF drain Drain/Tube Type: Bulb Drainage Method: Suction: Continuous Drainage Description: Serous Status: Patent, Stripped/Milked Dressing Type: Gauze Dressing Condition: Site Condition: No complications PSYCHOSOCIAL Type of Emotional Support Provided: 1:1 discussion, Ventilation of feelings encouraged /es/ KATHERIN ZUNIGA, KAL, RN REGISTERED NURSE Signed: 05/11/2024 03:02 05/11/2024 ADDENDUM STATUS: COMPLETED Version 2.2 Charting in accordance with [place] APPR[place]ED [place] STANDARD (MAAES) ACUTE INPATIENT/REHABILITATION NURSING ADMISSION SCREENING, ASSESSMENT, AND STANDARDS OF CARE IV LINES Peripheral IV: Line #2: Assessment: Location: Right, Wrist Gauge: 18 Dressing Condition: Clean, dry, intact Site Condition: No redness, swelling, pain Line Status: Judy /leobardo/ KATHERIN ZUNIGA, MSN, RN REGISTERED NURSE Signed: 05/11/2024 03:04 05/11/2024 ADDENDUM STATUS: COMPLETED Version 2.2 Charting in accordance with [place] APPR[place]ED [place] STANDARD (MAAES) ACUTE INPATIENT/REHABILITATION NURSING ADMISSION SCREENING, ASSESSMENT, AND STANDARDS OF CARE REASSESSMENT Comment: Patient resting in bed, eyes closed. Chest rise and fall observed. Patient not in distress. PAIN ASSESSMENT Patient's acceptable pain goal: Are you currently experiencing pain? No: NEUROLOGICAL Neurological Orientation: Level of Consciousness (AVPU): No change in prior assessment. NEUROMUSCULAR/NEUROVASCULAR EXTREMITIES ASSESSMENT No change in prior assessment. CARDIOVASCULAR No change in prior assessment. RESPIRATORY Respirations: Unlabored Pattern: Regular No change in prior assessment. GASTROINTESTINAL No change in prior assessment. GENITOURINARY No change in prior assessment. INTEGUMENTARY/SKIN/WOUND - (INCLUDING NANCY) SEE NOTE: VAAES SKIN INPECTION/ASSESSMENT /es/ KATHERIN EFRAIN, MSN, RN REGISTERED NURSE Signed: 05/11/2024 03:09 KATHERIN ZUNIGA [facility] May 11, 2024 12:05 AM NURSING NOTE: LOCAL TITLE: [facility] SKIN INSPECTION/ASSESSMENT STANDARD TITLE: NURSING NOTE DATE OF NOTE: MAY 11, 2024@00:05 ENTRY DATE: MAY 11, 2024@02:44:42 AUTHOR: KATHERIN ZUNIGA COSIGNER: URGENCY: STATUS: COMPLETED Assessment Type: INITIAL SKIN INSPECTION/ASSESSMENT SKIN INSPECTION: Skin Color: Usual for ethnicity Skin Temperature: Warm Skin Moisture: Normal Skin Turgor: Elastic (normal/immediate) Nancy Skin Assessment: The patient's Nancy Scale Score is 21. The patient is considered not at risk for development of pressure ulcers/injuries. Sensory perception -- ability to respond meaningfully to pressure-related discomfort No impairment. Moisture -- degree to which skin is exposed to moisture Rarely moist. Activity -- ability to change and control body position Walks occasionally. Mobility -- ability to change and control body position No limitation. Nutrition -- usual food intake patterns Adequate. Friction and shear No apparent problem. INTERVENTIONS: No change in previous interventions as listed below [facility] Pressure Injury Interventions 05/10/2024 [facility] Pressure Injury Int Not Needed RISK FACTORS THAT INCREASE RISK FOR DEVELOPING PRESSURE INJURIES: The patient/resident has the following: Age over 75 Known vascular surgery or vascular disease Device(s): (nasogastric tubes, oxygen tubing, urinary catheters, cell phone etc.) Comment: PIV, KASHIF drain SKIN ALTERATIONS: Pressure Ulcer/Injury Documentation from the past year: No data available SKIN ALTERATIONS: Wound Documentation from the past year: Skin Assessment 05/10/2024 Skin Integrity - Wound SKIN INTEGRITY: Intact Incision and Flaps: Incision 1: Location: 4x lap incisions; ( 3 dermabond OG, 1 guze and tape) Status: Edges well approximated Unable to visualize Closure: Sutures Glue Stabilization: None Surrounding tissue: Intact Wound drainage none. Dressing type: Gauze Transparent Open to air Incision 2: Location: R Flank - KASHIF drain site Status: Unable to visualize Wound drainage none. Dressing type: Gauze Other: tape /es/ KATHERIN ZUNIGA, MSN, RN REGISTERED NURSE Signed: 05/11/2024 02:47 KATHERIN ZUNIGA [facility] May 11, 2024 12:03 AM NURSING INPATIENT NOTE: LOCAL TITLE: [facility] NURSING FREQUENT DOCUMENTATION STANDARD TITLE: NURSING INPATIENT NOTE DATE OF NOTE: MAY 11, 2024@00:03 ENTRY DATE: MAY 11, 2024@00:03:42 AUTHOR: KATHERIN ZUNIGA: URGENCY: STATUS: COMPLETED Version 2.4 Charting in accordance with [facility] [place] STANDARD (MAAES) ACUTE INPATIENT/REHABILITATION NURSING ADMISSION SCREENING, ASSESSMENT, AND STANDARDS OF CARE NATIONAL EARLY WARNING SCORE (NEWS) The vital signs below were used for scoring: Temperature: 98.5 Pulse: 107 Blood Pressure: 153/79 Respiration: 18 Pulse Oximetry: 93 The NEWS total is 3. 1. Temperature (C/F): Score = 0 36.1 - 38.0 C (96.9 - 100.4 F) 2. Pulse: Score = 1 91-110 3. Respirations: Score = 0 12-20 4. Blood Pressure (Only Systolic BP, mmHg): Score = 0 111-219 5. Pulse Oximetry: Score = 2 92% - 93% 6. Supplemental oxygen in use: Score = 0 No 7. AVPU: Score = 0 Alert Action/Interventions Taken: Repeat NEWS scoring with next vital signs Patient Status: Remains on unit ORAL INTAKE (PERCENTAGE OF MEAL EATEN) Snacks: % Consumed/Comment: 0 Pain DVPRS Scale Location: [facility] Pain Rating Scale (DVPRS): 0 No pain Patient's acceptable pain goal: Pain Alleviating Interventions: /es/ KATHERIN ZUNIGA MSN, RN REGISTERED NURSE Signed: 05/11/2024 00:04 KATHERIN ZUNIGA [facility] May 10, 2024 08:22 PM NURSING INPATIENT NOTE: LOCAL TITLE: [facility] NURSING FREQUENT DOCUMENTATION STANDARD TITLE: NURSING INPATIENT NOTE DATE OF NOTE: MAY 10, 2024@20:22 ENTRY DATE: MAY 10, 2024@20:22:06 AUTHOR: MALACHI PAEZIGNER: URGENCY: STATUS: COMPLETED Version 2.4 Charting in accordance with [place] APPROVED [place] STANDARD (MAAES) ACUTE INPATIENT/REHABILITATION NURSING ADMISSION SCREENING, ASSESSMENT, AND STANDARDS OF CARE ACTIVITIES OF DAILY LIVING Hygiene ADLs: Dressing: Upper Body: Independent Lower Body: Independent Eating: Independent Foot Care: Inspection Hand Hygiene: Performed post toileting Oral Care: Non-ventilator patient: The was educated that poor oral hygiene increases the risk of hospital acquired pneumonia and dental problems like gingivitis and tooth decay. was educated using their preferred method and verbalized understanding. Comments: pt. refused oral care Pericare: Patient declined Personal Care: Patient declined Toileting: Independent ACTIVITY/MOBILIZATION Mobility Status: Independent: Mobilization Tolerance: Tolerates well Gait: [facility] - Highest Level of Mobility achieved this shift: 6 - Walked 10 steps or more (walked to restroom) ENVIRONMENTAL SAFETY MANAGEMENT Implemented safety standards of care: -Prosperity to unit & environment -Adequate room lighting -Bed in low and locked position -Call light within reach -Personal items within reach -Traffic path in room free of clutter -Non-slip footwear -Upper/half length side rails up for bed mobility -Sensory aids within reach -Encourage patient to utilize sensory support GASTROINTESTINAL Last bowel movement: 05/06/2024 Elimination: Continent GENITOURINARY Elimination: Continent Pain DVPRS Scale Location: [facility] Pain Rating Scale (DVPRS): 0 No pain Patient's acceptable pain goal: Pain Alleviating Interventions: /leobarod/ BRIAN PAEZ CNA COOK SHORT ORDER Signed: 05/10/2024 20:24 CINDY PAEZ [facility] May 10, 2024 01:23 PM NURSING INPATIENT NOTE: LOCAL TITLE: [place] ACUTE INPATIENT NSG SHIFT ASSESSMENT STANDARD TITLE: NURSING INPATIENT NOTE DATE OF NOTE: MAY 10, 2024@13:23 ENTRY DATE: MAY 10, 2024@13:23:16 AUTHOR: WALKER ZEE COSIGNER: URGENCY: STATUS: COMPLETED Version 2.2 Charting in accordance with [place] APPR[place]ED [place] STANDARD (MAAES) ACUTE INPATIENT/REHABILITATION NURSING ADMISSION SCREENING, ASSESSMENT, AND STANDARDS OF CARE ASSESSMENT PAIN ASSESSMENT Patient's acceptable pain goal: 0 No pain Are you currently experiencing pain? No: Pain Score: 0 JUNIOR FALL SCALE & TIPS PROGRAM Junior Fall Scale: The Junior Fall scale was performed and score was 10. This is indicative of low risk of falls. History of falling: immediate or within 3 months? No Secondary diagnosis: No Ambulatory aid: None/bedrest/nurse assist Intravenous therapy/Heparin lock: No Gait/Transferring: Weakness Mental Status: Oriented to own ability/knows own limitations ENVIRONMENTAL SAFETY MANAGEMENT Implemented safety standards of care: -Prosperity to unit & environment -Adequate room lighting -Bed in low and locked position -Call light within reach -Personal items within reach -Traffic path in room free of clutter -Non-slip footwear -Upper/half length side rails up for bed mobility -Sensory aids within reach -Encourage patient to utilize sensory support NEUROLOGICAL Neurological Orientation: Oriented x4 Level of Consciousness (AVPU): Alert = Appears aware of and responsive to the environment on their own. Follows commands, opens eyes spontaneously, and tracks objects. 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 Bilateral: Moderate Upper Extremity Bilateral: Lower Extremity Bilateral: CARDIOVASCULAR Heart Sounds: Normal (S1S2) Edema: None RESPIRATORY Respirations: Unlabored GASTROINTESTINAL Last bowel movement: 05/08/2024 GENITOURINARY Elimination: Continent INTEGUMENTARY/SKIN/WOUND - (INCLUDING NANCY) SEE NOTE: VAAES SKIN INPECTION/ASSESSMENT ACTIVITIES OF DAILY LIVING Hygiene ADLs: Oral Care: Non-ventilator patient: Patient teeth brushed: Independently IV LINES Peripheral IV: Present on admission: Line #1: Location: Left, Wrist Gauge: 18 PSYCHOSOCIAL Type of Emotional Support Provided: Treatment discussion /es/ DYLAN NEAL, RN REGISTERED NURSE Signed: 05/10/2024 13:27 WALKER ZEE [facility] May 10, 2024 01:20 PM NURSING ADMISSION EVALUATION NOTE: LOCAL TITLE: [facility] ACUTE INPATIENT NSG ADMISSION SCREEN STANDARD TITLE: NURSING ADMISSION EVALUATION NOTE DATE OF NOTE: MAY 10, 2024@13:20 ENTRY DATE: MAY 10, 2024@13:20:32 AUTHOR: WALKER ZEE EXP COSIGNER: URGENCY: STATUS: COMPLETED ALLERGY/ADVERSE DRUG REACTION (ADR) REVIEW (MRT5) FACILITY ALLERGY/ADR -------- [facility] No Known Allergies [facility] INHIBITORS [facility] SIMVASTATIN [facility] MA[facility] INHIBITORS [facility] SIMVASTATIN Allergy/Adverse Drug Reaction Review to be conducted by: Provider MEDICATION REVIEW (MRR1) Did patient bring medication(s) from home? No Medication Review to be conducted by Provider GENERAL INFORMATION Admission information given by: Patient Is there a legal guardian/conservator? No Preferred language for discussing healthcare: American Preferred mode of communication: Verbal Items at Bedside: Hearing Aid(s): Bilateral INFECTIOUS DISEASE RISK SCREEN Travel Screen: Have you traveled within the [facility] within the last 21 days? No Have you traveled outside the [facility] within the last 21 days? No Within the last 14 days, have you had: No known exposure Other Exposure to Infectious Disease: No known exposure Patient reported the following symptoms: No Symptoms Present History of Multiple Drug Resistant Organism (MDRO): No Methicillin-resistant Staphylococcus aureus (MRSA) Swabbing: Informed verbal consent obtained Education provided NUTRITION SCREENING Malnutrition Screening Weight (Previous 6 months): Measurement DT WEIGHT LB(KG)[BMI] 05/10/2024 06:30 222(100.70)[30*] 04/12/2024 13:15 221(100.24)[30*] 03/26/2024 10:32 220.2(99.88)[30*] 03/01/2024 11:23 221(100.24)[30*] 12/01/2023 10:41 225.1(102.10)[31*] 11/21/2023 13:42 225.6(102.33)[31*] Lost weight recently without trying: No (0 points) Have you been eating poorly because of decreased appetite? No (0 points) Total Score: 0 Other Nutrition Screening Questions: The patient does not report any concerns with their teeth that would make it difficult to eat. The patient does not report overeating to the point of feeling sick or making themselves vomit. The patient denies gaining 10 lbs.(4.5 kgs) or more in the past 3 months without trying. The patient denies having any food allergies, intolerance, special dietary needs, or ethnic, cultural or synagogue preferences that would affect their dietary needs. Food Insecurity Screening Within the past 12 months, you worried whether your food would run out before you got money to buy more. Never true Within the past 12 months, the food you bought just did not last you and you did not have the money to get more. Never true Food Insecurity Disposition: RISK SCREENINGS Alcohol Screen: Screen to be completed by: Provider *Does the patient consume alcohol? No Tobacco Use: Never - tobacco user Do you currently or have you ever used alternative nicotine products? No Substance Use Assessment: *Do you use any recreational drugs or narcotics (prescription or non-prescription)? No RISK OF WANDERING The patient does not have a history of wandering. The patient does not have a history of elopement. The patient is not expressing a desire to leave. SUICIDE SCREEN [place] Suicide Severity Rating Scale (C-SSRS) 1. Over the past month, have you wished you were or wished you could go to sleep and not wake up? No 2. Over the past month, have you had any actual thoughts of killing yourself? No 3. Over the past month, have you been thinking about how you might do this? Response not required due to responses to other questions. 4. Over the past month, have you had these thoughts and had some intention of acting on them? Response not required due to responses to other questions. 5. Over the past month, have you started to work out or worked out the details of how to kill yourself? Response not required due to responses to other questions. 6. If yes, at any time in the past month did you intend to carry out this plan? Response not required due to responses to other questions. 7. In your lifetime, have you ever done anything, started to do anything, or prepared to do anything to end your life (for example, collected pills, obtained a gun, gave away valuables, went to the roof but didn't jump)? No 8. If YES, was this within the past 3 months? Response not required due to responses to other questions. C-SSRS Screen is Negative EXPOSURE TO VIOLENCE AND ABUSE PRE-SCREEN Are you worried for your safety, that you will be hurt or harmed? No Has anyone tried to force you to sign papers or use your money against your will? No SPIRITUALITY Are there synagogue practices or spiritual concerns you want the house mover helper, your provider, and other health care team members to know? No VISITOR INFORMATION Will you have a primary support person while in the hospital? No Patient's Visitor Restriction preferences: No Privacy Review: No passcode provided due to opt out /DYLAN Paz, RN REGISTERED NURSE Signed: 05/10/2024 13:22 WALKER ZEE [facility] May 10, 2024 01:19 PM NURSING NOTE: LOCAL TITLE: [facility] SKIN INSPECTION/ASSESSMENT STANDARD TITLE: NURSING NOTE DATE OF NOTE: MAY 10, 2024@13:19 ENTRY DATE: MAY 10, 2024@13:19:07 AUTHOR: WALKER ZEE EXP COSIGNER: URGENCY: STATUS: COMPLETED Assessment Type: INITIAL SKIN INSPECTION/ASSESSMENT SKIN INSPECTION: Skin Color: Usual for ethnicity Skin Temperature: Warm Skin Moisture: Normal Skin Turgor: Elastic (normal/immediate) Nancy Skin Assessment: The patient's Nancy Scale Score is 19. The patient is considered not at risk for development of pressure ulcers/injuries. Sensory perception -- ability to respond meaningfully to pressure-related discomfort Slightly limited. Moisture -- degree to which skin is exposed to moisture Rarely moist. Activity -- ability to change and control body position Walks occasionally. Mobility -- ability to change and control body position Slightly limited. Nutrition -- usual food intake patterns Adequate. Friction and shear No apparent problem. INTERVENTIONS: The pressure injury interventions were not needed - patient/resident is not at risk. SKIN ALTERATIONS: Pressure Ulcer/Injury Documentation from the past year: No data available SKIN ALTERATIONS: Wound Documentation from the past year: No data available for: Skin Integrity - Wound Skin Integrity - Wound Second Skin Integrity - Wound Third Skin Integrity - Wound Fourth Skin Integrity - Wound Fifth Skin Integrity - Wound Additional Incision and Flaps: Incision 1: Location: adbomen 4 lap sites Wound drainage none. /DYLAN Paz, RN REGISTERED NURSE Signed: 05/10/2024 13:20 WALKER ZEE [facility] May 10, 2024 01:17 PM NURSING NOTE: LOCAL TITLE: [facility] PERSONAL EFFECTS [facility] STANDARD TITLE: NURSING NOTE DATE OF NOTE: MAY 10, 2024@13:17 ENTRY DATE: MAY 10, 2024@13:17:46 AUTHOR: WALKER ZEE EXP COSIGNER: URGENCY: STATUS: COMPLETED PERSONAL EFFECTS Hazardous Check: Advised of prohibited hazardous items, Denies hazardous items, No hazardous items observed Medication Check: Denies medication on person Prosthetic Check: Glasses, Hearing Aids Personal Items: Patient/Family advised that [facility] not responsible for loss of any personal effects or valuables., Patient/Family advised of locker availability., Patient chooses to keep belongings at bedside. Patient Valuables Observed: shoes, hearing aids, glassess, shirt, pant, socks /DYLAN Paz, RN REGISTERED NURSE Signed: 05/10/2024 13:18 WALKER ZEE [facility] May 10, 2024 01:05 PM NURSING TREATMENT PLAN NOTE: LOCAL TITLE: [facility] PLAN OF CARE STANDARD TITLE: NURSING TREATMENT PLAN NOTE DATE OF NOTE: MAY 10, 2024@13:05 ENTRY DATE: MAY 10, 2024@13:05:10 AUTHOR: WALKER ZEE EXP COSIGNER: URGENCY: STATUS: COMPLETED [facility] PLAN OF CARE Has ADDENDA Plan of Care and Discharge Plan (nurse) TREATMENT PLAN Patient involved in making decisions about their care, treatment and plan for discharge Yes Date: Apr NURSING DIAGNOSIS: Potential for Infection Goals: *Prior to discharge, patient will:--Be free from infection as evidenced by normothermia, WBC count <or equal to 11,000, and HR< or equal to 100bpm, --Verbalize knowledge of infection prevention and early signs of infections Interventions: --Monitor laboratory tests, and Imaging Tests (i.e. XRAYs, CTs, Ultrasounds) (MD GINO) --Provide nutrition to enhance wound healing and support the body's primary and secondary defense systems.(Dietetics,MD GINO) Care plan status: Continued Progress toward goals documented continuously through progress notes Patient Education: Instruct: --Regarding medications (action and symptoms to report), treatments, and/or dressing changes /leobardo/ DYLAN NEAL, RN REGISTERED NURSE Signed: 05/10/2024 13:16 05/11/2024 ADDENDUM STATUS: COMPLETED The Nursing Care Plan has been reviewed. Progress on the Goals/Outcomes is as follows: Care plan status: Continued Progress toward goals documented continuously through progress notes Discharge Planning: Assessment of patient/family's ability to manage care requirement post-discharge: FAIR Need identified at this time for referrals/resources post-discharge: UNCERTAIN Comment: NURSING DIAGNOSIS: Collaborative Problem Pre/Post-Operative/Procedure Care: Lap [place] Goals:*Prior to discharge, patient will: --Achieve acceptable pain level or pain score <4 --Verbalize understanding, thoughts and feelings about surgery, diagnosis, prognosis and treatment plan before surgery/procedure. --Verbalize an understanding of usual pre-operative and/or post-operative routines before procedure --Demonstrate the ability to perform techniques to prevent complications post-operatively before procedure --Verbalize an understanding of, and plan for adhering to recommended follow - up care including future dietary modifications, activity level, treatments and medications --Will experience minimal to no post operative complications. Interventions:* --Encourage verbalization of fears and anxiety and provide feedback.(MD GINO, Grinding Mill Operator) --Utilize incentive Spirometer PRN (Nursing, Physicians, & RT) --Maintain patency of drains/tubes. (Nursing & Physicians) --Inspect operative site Q4H x 24 hours then PRN(Nursing) --Record Intake and Output PRN (Nursing). --Progressive ambulation per orders.(Nursing, Physicians, & PT.) --Monitor vital signs per MD order or hospital policy ---Every 4 hours x 24 hours post-operative/procedure. Care plan status: Continued Progress toward goals documented continuously through progress notes Patient Education: --Instruct the patient about pre-op/post-op protocol., --Demonstrate actions or techniques that patient will be expected to perform post/op turn, cough, and deep breathe, incentive spirometer, ROM, positioning. /leobardo/ KATHERIN ZUNIGA, MSN, RN REGISTERED NURSE Signed: 05/11/2024 02:42 05/11/2024 ADDENDUM STATUS: COMPLETED Plan of care resolved,Pt D/C home with . /es/ YESI SWARTZ Registered Nurse Signed: 05/11/2024 12:20 WALKER ZEE [facility] May 10, 2024 12:45 PM ADMINISTRATIVE NOTE: LOCAL TITLE: ADMINISTRATIVE ST STANDARD TITLE: ADMINISTRATIVE NOTE DATE OF NOTE: MAY 10, 2024@12:45 ENTRY DATE: MAY 10, 2024@12:45:31 AUTHOR: JOCELYN HOLDER EXP COSIGNER: URGENCY: STATUS: COMPLETED SPOKE WITH [facility] 2 AND LET THEM KNOW THAT VET HAS BEEN ADMITTED OBSERVATION ON 05/10/2024 /leobardo/ JOCELYN HOLDER [employer]VANCED MILLER HEAD Signed: 05/10/2024 12:48 Receipt Acknowledged By: 05/11/2024 20:24 /es/ CORINNE LANDAVERDE RUBBER PROCESS HAND MILLER HEAD 05/13/2024 03:33 /es/ CHANDU KOCH SUPERVISORY MILLER HEAD * AWAITING SIGNATURE * LIZZY RAMIREZ 05/11/2024 23:51 /es/ LEANNE MERCEDES SUPERVISORY MILLER HEAD JOCELYN HOLDER [facility]
--- OUTSIDE RECORDS SUMMARY | 2025-01-21 13:02 | XMS_ITS | Encounter Summary ---
Author Name [facility] [place] [facility] [place] Address [address] [place] [address] Care Team Providers Care Edge Inker Name Role Phone KARON GARCIA Primary Care [...] B EXC) MAXIMO PALMA Jul 22, 2023 [id number] GABBI,GE DELONTE PATIENT [employer] PREFERRED PROVIDER ORGANIZAT ION (PPO) MAXIMO PALMA Apr 22, 2023 [id number] [phone] GABBIRUSSELL RUSHTrudy PATIENT [employer] PREFERRED PROVIDER ORGANIZAT ION (PPO) MAXIMO PALMA Jun 23, 2014 [id number] RUSSELL SEOTrudy PATIENT AETNA PHARMACY PRESCRIPT ION NONE Feb 11, 2017 NONE [phone] RUSSELL SEO PATIENT [employer]ETNA PHARMACY PRESCRIPT ION NONE Feb 11, 2017 NONE [id number] [phone] RUSSELL SEO PATIENT AET[employer] RX PRESCRIPT ION RX PLAN Jun 23, 2021 [id number] RUSSELL SEO PATIENT AETNA RX PRESCRIPT ION RX PLAN Jun 23, 2021 [id number] RUSSELL SEO PATIENT AETNA RX PRESCRIPT ION FEHBP Jun 23, 2014 [id number] RUSSELL SEO PATIENT AETNA [facility] PREFERRED PROVIDER ORGANIZAT ION (PPO) MAXIMO PALMA Jun 23, 2014 [id number] RUSSELL SEO PATIENT MEDICARE (WNR) MEDICARE () PART B May 23, 2008 PART B [id number] RUSSELL SEO PATIENT MEDICARE (WNR) MEDICARE () PART B May 23, 2008 PART B [id number] RUSSELL SEOD PATIENT MEDICARE (WNR) MEDICARE () PART A Apr 23, 2008 PART A [id number] RUSSELL SEO PATIENT MEDICARE (WNR) MEDICARE () PART A Apr 23, 2008 PART A [id number] RUSSELL SEOD PATIENT MEDICARE (WNR) MEDICARE () PART A Apr 23, 2008 PART A [id number] [phone] RUSSELL SEOD PATIENT MEDICARE (WNR) MEDICARE () PART B Apr 23, 2008 PART B [id number] [phone] RUSSELL SEO PATIENT Selected Encounter This section includes the information on record at [place] for the Encounter. Date/Time Encounter Type Encounter Description Reason Provider Source Jun 10, 2024 10:30 AM PT EDUCATION NOC [facility] ICD-10-CM Z72.3 Lack of physical exercise QUINLISK,SHAE L IHE Encounter Template Text not used by [facility] Assessments - Encounter Diagnoses This section includes the primary and secondary diagnoses documented for the Encounter. Date/Time Primary/Secondary Diagnosis Diagnosis Name Provider Source Jun 22, 2024 02:30 PM PRIMARY Lack of physical exercise LATISHA ARCHER [facility] Plan of Treatment: Future Appointments (+ 6 months) and Future Tests (+/- 45 days) The Plan of Treatment section includes future care activities for the patient from all [place] treatmentfacilities. This section includes future appointments and future orders which are active, pending or scheduled. Future Appointments This section includes appointments that were scheduled to occur 6 months from the date of the Encounter, up to a maximum of 20 appointments. The data comes from all [facility]. Appointment Date/Time Appointment Type Appointme nt Facility Name Aug 18, 2024 11:41 AM AMBULATORY - MEDICINE EMERITA Daniel. [facility] Aug 19, 2024 08:30 AM AMBULATORY - NONE ROMERO Daniel. [facility] Sep 22, 2024 11:30 AM AMBULATORY - MEDICINE [facility] November 09, 2024 01:30 PM AMBULATORY - SURGERY [facility] Dec 07, 2024 11:00 AM AMBULATORY - MEDICINE [facility] Advance Directives: All historical and current Section Date Range: From patient's date of to the date document was created. This section includes ALL of a patient's completed or amended [place] Advance and Rescinded Directives. The entries below indicate that a directive exists for the patient, but an actual copy is not included with this document. The data comes from all [facility]. Date Advance Directives Provider Source Jan 14, 2022 ADVANCE DIRECTIVE DISCUSSION SHEA WINTER [facility] Pathology Reports: +/- 30 days of [...] the Encounter. The data comes from all [facility]. Date/Time Pathology Report Provider Source May 11, 2024 12:18 PM LR SURGICAL PATHOL [facility] REPORT: LOCAL TITLE: LR SURGICAL PATHOLOGY REPORT STANDARD TITLE: PATHOLOGY PROCEDURE NOTE DATE OF NOTE: MAY 11, 2024@12:18:06 ENTRY DATE: MAY 11, 2024@12:18:06 AUTHOR: CONCETTA GOMEZ: URGENCY: STATUS: COMPLETED $APHDR - - - [...] Performing Laboratory: Surgical Pathology Report Performed By: [facility] [address]# [id number] [address] [address] $FTR - - - - - - [...] - - LORETO SEO STANDARD FORM 515 ID:[id number] SEX:M :1945 AGE: 79 LOC:APFEE PCP: Lorelei Alba MD /leobardo/ CONCETTA GOMEZ Pathologist Signed: 05/11/2024 12:18 CONCETTA GOMEZ [facility] Encounter Notes: All associated encounter notes This section contains the clinical notes associated to the Encounter. Date/Time Encounter Note(s) Provider Source Jun 10, 2024 10:30 AM CARE COORDINATION HOME TELEHEALTH VIDEO VISIT NOTE: LOCAL TITLE: GEROFIT VVC SUPERVISED EXERCISE NOTE [facility] STANDARD TITLE: CARE COORDINATION HOME TELEHEALTH VIDEO VISIT NO DATE OF NOTE: JUN 10, 2024@10:30 ENTRY DATE: JUN 10, 2024@11:42:31 AUTHOR: LATISHA ARCHER EXP COSIGNER: URGENCY: STATUS: COMPLETED GEROFIT-SUPERVISED EXERCISE NOTE participated in the [facility] exercise program today. Activities were focused on progression of his individual exercise prescription (cardiorespiratory fitness training, strength training, etc.) and group based exercise sessions to include, but not limited to: flexibility training, balance training, functional circuit training, Torsten Chi for arthritis, and other functional strength and neuromotor exercises. Exercise participation was supervised by [facility] staff and any questions/concerns were addressed with the patient. Modifications were made to programming as appropriate to suit Veterans individual needs, preferences, and whole health concerns. A special Torsten Chi component was added today and taught by Idania Odom. Education provided during class: Purpose of warm-up, cooldown, RPE, fall prevention, appropriate intensity levels, proper form for exercises, encouraging out of class exercise, activity recommendations for older adults, appropriate response to exercise, how to progress/modify Total Duration (minutes) for session: 30 (left early) Address: [address] [place] [address] [place] [address] Contact Information: Rosemary [phone] /leobardo/ LATISHA ARCHER, PT, DPT, OCS TELE PAIN PHYSICAL THERAPIST Signed: 06/10/2024 11:58 LATISHA ARCHER [facility]
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
--- OUTSIDE RECORDS SUMMARY | 2025-01-21 13:02 | XMS_ITS | Encounter Summary ---
Author Name [facility] [facility] [place] [facility] [place] Address [address] [place] [address] Care Team Providers Care Field Marketing Manager Name Role Phone KARON GARCIA Primary [...] B EXC) MAXIMO PALMA Jul 22, 2023 [id number] GABBI,RUSSELL MARTEL PATIENT [employer]ETNA PREFERRED PROVIDER ORGANIZAT ION (PPO) MAXIMO PALMA Apr 22, 2023 [id number] [phone] GABBIRUSSELL MARTEL PATIENT [employer] PREFERRED PROVIDER ORGANIZAT ION (PPO) MAXIMO PALMA Jun 23, 2014 [id number] [phone] RUSSELL SEOTrudy PATIENT AETNA PHARMACY PRESCRIPT ION NONE Feb 11, 2017 NONE [id number] [phone] RUSSELL SEO PATIENT AETNA PHARMACY PRESCRIPT ION NONE Feb 11, 2017 NONE [id number] RUSSELL SEO PATIENT AETNA RX PRESCRIPT ION RX PLAN Jun 23, 2021 [id number] RUSSELL SEOD PATIENT AETNA RX PRESCRIPT ION RX PLAN Jun 23, 2021 [id number] RUSSELL SEO PATIENT AETNA RX PRESCRIPT ION FEHBP Jun 23, 2014 [id number] RUSSELL SEO PATIENT AETNA [facility] PREFERRED PROVIDER ORGANIZAT ION (PPO) MAXIMO PALMA Jun 23, 2014 [id number] RUSSELL SEO PATIENT MEDICARE (WNR) MEDICARE () PART B May 23, 2008 PART B [id number] RUSSELL SEOD PATIENT MEDICARE (WNR) MEDICARE () PART B May 23, 2008 PART B [id number] RUSSELL SEOD PATIENT MEDICARE (WNR) MEDICARE () PART A Apr 23, 2008 PART A [id number] RUSSELL SEOD PATIENT MEDICARE (WNR) MEDICARE () PART A Apr 23, 2008 PART A [id number] RUSSELL SEOD PATIENT MEDICARE (WNR) MEDICARE () PART A Apr 23, 2008 PART A [id number] RUSSELL SEOD PATIENT MEDICARE (WNR) MEDICARE () PART B Apr 23, 2008 PART B [id number] [phone] RUSSELL SEO PATIENT Selected Encounter This section includes the information on record at [place] for the Encounter. Date/Time Encounter Type Encounter Description Reason Provider Source Aug 18, 2024 11:41 AM OFFICE O/P EST SF 10 MIN URGENT CARE ICD-10-CM Z76.0 Encounter for issue of repeat prescription LORENZO ANNA Encounter Template Text not used by [place] Assessments - Encounter Diagnoses This section includes the primary and secondary diagnoses documented for the Encounter. Date/Time Primary/Secondary Diagnosis Diagnosis Name Provider Source Aug 18, 2024 12:07 PM PRIMARY Encounter for issue of repeat prescription LORENZO ANNA [facility] Plan of Treatment: Future Appointments (+ 6 months) and Future Tests (+/- 45 days) The Plan of Treatment section includes future care activities for the patient [facility] [place] [facility] This section includes future appointments and future orders which are active, pending or scheduled. Future Appointments This section includes appointments that were scheduled to occur 6 months from the date of the Encounter, up to a maximum of 20 appointments. The data comes from all [place] treatment facilities. Appointment Date/Time Appointment Type Appointme nt Facility Name Aug 19, 2024 08:30 AM AMBULATORY - NONE ROMERO Arvind [facility] Sep 22, 2024 11:30 AM AMBULATORY - MEDICINE [facility] November 09, 2024 01:30 PM AMBULATORY - SURGERY [facility] Dec 07, 2024 11:00 AM AMBULATORY - MEDICINE [facility] Dec 27, 2024 10:30 AM AMBULATORY - MEDICINE [facility] Jan 07, 2025 08:00 AM AMBULATORY - NONE [facility] Vital Signs: All taken on the encounter date This section contains inpatient and outpatient Vital Signs collected on the date of the Encounter. Date/Time Temperature Pulse Blood Pressure Respiratory Rate SP02 Pain Height Weight Body Mass Index Source Aug 18, 2024 11:47 AM 97.8 66 144/71 18 0 ROMERO Courtney [facility] Social History: Smoking Status (Most current) and Tobacco Use (All prior to encounter date) This section includes the most current, and the historical, smoking and tobacco- related health factors from the [place] facility where the Encounter took place. Current Smoking Status This section includes the most current smoking, or tobacco-related health factor, from the [place] facility where the Encounter took place. Date/Time Current Smoking Status Comment Facil ity Jan 11, 2022 08:00 AM VA-TOBACCO NEVER USED ROMERO CCourtney [facility] Advance Directives: All historical and current Section Date Range: From patient's date of to the date document was created. This section includes ALL of a patient's completed or amended [place] Advance and Rescinded Directives. The entries below indicate that a directive exists for the patient, but an actual copy is not included with this document. The data comes from all [place] facilities. Date Advance Directives Provider Source Jan 14, 2022 ADVANCE DIRECTIVE DISCUSSION SHEA WINTER [facility] Encounter Notes: All associated encounter notes This section contains the clinical notes associated to the Encounter. Date/Time Encounter Note(s) Provider Source Aug 18, 2024 12:08 PM URGENT CARE EDUCAT ION DISCHARGE NOTE: LOCAL TITLE: URGENT CARE EDUCATION DISCHARGE NOTE STANDARD TITLE: URGENT CARE EDUCATION DISCHARGE NOTE DATE OF NOTE: AUG 18, 2024@12:08 ENTRY DATE: AUG 18, 2024@12:08:45 AUTHOR: CONNER KO EXP COSIGNER: URGENCY: STATUS: COMPLETED *Urgent Care Patient Discharge Instruction Sheet Discharge date/time: Jul PAIN Was pain reassessed at time of discharge? Yes Pain level at time of discharge: 1 - slightly uncomfortable IV discontinued with catheter intact: Not Applicable VERBAL INSTRUCTIONS: Medications: Other: WRITTEN INSTRUCTIONS: Written/Printed copy of verbal instructions given Yes Written/Printed copy of Instructions from: Other Written/Printed copy of Instructions given for: INFORMATION GIVEN TO: Patient INFORMATION SENT WITH PATIENT TO: Other Patient and/or Family/Significant Other verbalize understanding: Yes Any learning barriers were considered, and the patient, family and/or caregiver Indicate good understanding and questions have been answered to their Satisfaction: Yes Follow up care: Return as needed Patient accompanied by: Self Per: Ambulatory Wrist Band Removed: Pt declined Patient was given the Telephone Care program brochure and advised to use This service should he/she have any questions regarding the instructions provided above. Patient has also been advised to contact telephone care for any issues of unresolved pain, or other continuing problems. Yes The Daily Plan was provided and reviewed with the patient to include review of current and new medications. All medications have been reviewed for interactions, appropriate dosing, duplications with other medications, and requirement for medical treatment by the prescribing provider. The patient, family, and /or caregiver has been educated on new medications including common and severe adverse reactions and/or side effects by the prescribing provider. The patient was informed of the importance of carrying updated medication information and his/her responsibility to maintain a current medication list and communicate information to all providers. Yes /leobardo/ CONNER KO RN Signed: 08/18/2024 12:09 CONNER KO [facility] Aug 18, 2024 12:02 PM URGENT CARE NOTE: LOCAL TITLE: URGENT CARE PROVIDER NOTE STANDARD TITLE: URGENT CARE NOTE DATE OF NOTE: AUG 18, 2024@12:02 ENTRY DATE: AUG 18, 2024@12:02:29 AUTHOR: LORENZO ANNA EXP COSIGNER: URGENCY: STATUS: COMPLETED SUBJECTIVE:Patient states Im needing about a 30 day extension of some meds and also my hearing aid manufacturing scheduler and glucometer arent working I reviewed the nursing triage note and vital signs and made adjustments to the patient's history and symptom discrepancies as noted below. HPI: This is a 79 yo_male who is a traveling from [place] is presenting to the [facility] requesting a 30 day supply of his Metformin, a new glucometer for his battery ran out, as well as a hearing aid manufacturing scheduler. he is in town for approx 1 month visiting family. no acute complaints otherwise ROS: 10 pt ROS negative except as listed in the HPI Past Medical History: - Aneurysm of thoracic aorta (SCT 47509303Dthub stool (SCT 089668271) History of left hip replacement (SCT 107Benign Prostatic Hypertrophy without Outflow Obstruction (SCT 637564176) Vitamin D deficiency (SCT 86157272) CAD - Coronary Artery Disease (SCT 06517539) Dementia (SCT 01259017) Hyperlipidemia (SCT 92518744) Diabetes Mellitus Type 2 (SCT 87948010) HTN - Hypertension (SCT 28332827) Diabetic neuropathy (SCT 586021711) Stented artery (SCT 791511124) OA - Osteoarthritis (SCT 974434495) GERD - Gastro-Esophageal Reflux Disease (SCT 110754424) ALLERGIES MAURICE INHIBITORS, SIMVASTATIN OBJECTIVE: 105 - Last Set Vitals Date Vital Measurement Qualifiers 08/18/2024 11:47 Temp F (C) 97.8 (36.6) Pulse 66 Respir 18 BP 144/71 Pain 0 09/18/2022 11:02 POx (L/Min)(%) 96 08/26/2022 10:37 Ht in (cm) 72 (182.88) Wt lbs (kg)[BMI] 226 (102.51)[31*] GEN: NAD, WD, WN HEENT: NC/AT, EOMI, MMM NECK: Supple CARDIAC: RRR CHEST/PULM: CTAB GI: Soft, ND, NT, +BS : Deferred NEURO: A&O x4 BACK: Normal inspection MSK: MCMAHON, WWP, normal unassisted gait, no appreciable leg edema PSYCH: Cooperative SKIN: W/D/I Assessment/Plan: i reviewed JLV and found his dosage of metformin (last creatinine 1.14). i will provide a glucometer here. the hearing aid manufacturing scheduler is the only item i cannot help with. will have embassador take him to audiology for this. DX 1. Medication Refill /es/ LORENZO ANNA PA-C Signed: 08/18/2024 12:05 LORENZO ANNA [facility] Aug 18, 2024 11:51 AM NURSING URGENT CAR E TRIAGE NOTE: LOCAL TITLE: URGENT CARE NURSING ASSESSMENT NOTE STANDARD TITLE: NURSING URGENT CARE TRIAGE NOTE DATE OF NOTE: AUG 18, 2024@11:51 ENTRY DATE: AUG 18, 2024@11:51:32 AUTHOR: CONNER KO COSIGNER: URGENCY: STATUS: COMPLETED Urgent Care Nursing Assessment Arriving From: Home Arrival Mode: Ambulatory Accompanied By: Self Informant Source: Self Vitals: Temperature: 97.8 F [36.6 C] (08/18/2024 11:47) Pulse: 66 (08/18/2024 11:47) Respiration: 18 (08/18/2024 11:47) Blood Pressure: 144/71 (08/18/2024 11:47) Height: 72 in [182.9 cm] (08/26/2022 10:37) Weight: 226 lb [102.51 kg] (08/26/2022 10:37) Pain: 0 (08/18/2024 11:47) Pulse Oximetry: 96 09/18/22 @ 1102 Gerald Coma Scale: Spontaneous [4] Obeys commands [6] Oriented [5] Total: 15 Sepsis Screening: Have 2 of the following symptoms been present in the last 6 hours? No N/A Is the patients history suggestive of a new infection? No Complete only if patient has 2 of the above symptoms N/A Stroke Screening: Does the patient have slurred speech, facial weakness, or altered consciousness that warrants dysphagia screening? No If ANY of these are present: Notify Physician; Keep NPO; Refer to Speech Pathology Questions for Patient: Do you have difficulty swallowing? No Do you usually cough or choke during meals? No Nursing Observations: Patient previously diagnosed with dysphagia? No Patient has decreased consciousness or orientation? No Patient exhibits facial Weakness? No Patient when talking has gurgly/wet vocal quality or drools? No Patient speech is slurred? No Pain Intensity: 0 Past Medical History: Aneurysm of thoracic aorta (SCT 01802613Nuvkn stool (SCT 466811971) History of left hip replacement (SCT 107Benign Prostatic Hypertrophy without Outflow Obstruction (SCT 283218033) Vitamin D deficiency ([facility] 58830233) CAD - Coronary Artery Disease ([facility] 20683326) Dementia ([facility] 92778041) Hyperlipidemia ([facility] 95673299) Diabetes Mellitus Type 2 ([facility] 96188055) HTN - Hypertension ([facility] 83895750) Diabetic neuropathy ([facility] 247393573) Stented artery ([facility] 123157973) OA - Osteoarthritis ([facility] 845465906) GERD - Gastro-Esophageal Reflux Disease ([facility] 900791337) Allergies: MAURICE INHIBITORS, SIMVASTATIN [place] Medication Profile: Active Outpatient Medications (including Supplies): No Medications Found All current and active medications have been reviewed with the patient/caregiver and are correct as listed: Yes. Gender: Male ACUITY LEVEL: 4 Velez: 1=Critical 2=Emergent 3=Urgent 4=Non-urgent 5=Non-urgent Do you have any cultural or scientology needs that impact your learning and care? NO Is there anything else we need to know about in order to educate you on your care? NO Barriers to learning: none /es/ CONNER KO RN Signed: 08/18/2024 11:52 CONNER KO [facility] Aug 18, 2024 11:45 AM EMERGENCY DEPT TRI AGE NOTE: LOCAL TITLE: EMERGENCY DEPARTMENT TRIAGE NOTE STANDARD TITLE: EMERGENCY DEPT TRIAGE NOTE DATE OF NOTE: AUG 18, 2024@11:45 ENTRY DATE: AUG 18, 2024@11:45:28 AUTHOR: LASHAWN MCNEILL COSIGNER: URGENCY: STATUS: COMPLETED Emergency Department/Urgent Care Center Triage Patient age:79 Sex in chart: MALE Mode of Arrival: Private vehicle Mode of Mobility: * Walk Chief Complaint: Patient states Im needing about a 30 day extension of some meds and also my hearing aid manufacturing scheduler and glucometer arent working knuckler Note (Subjective/Objective): Patient aaox3, ambulatory on arrival, answers questions appropriately Level of Consciousness (AVPU): Alert = Appears aware of and responsive to the environment on their own. Follows commands, opens eyes spontaneously, and tracks objects. Vital Signs: Temperature 97.8 F (36.6 C) Pulse 66 Respirations 18 Blood Pressure 144/71 Pulse Oximetry 98 Room Air National Early Warning Score (NEWS): The NEWS total is 0. 1. Temperature [...] No 7. AVPU: Score = 0 Alert Pain: No pain Pain Score: 0 Suicide Screen: Nicholas Suicide Severity Rating Scale (C-SSRS) screener 1. Over the past month, have you [...] required due to responses to other questions. Emergency Severity Index (JAXSON) level: Level 4 Previously documented allergies: MAURICE INHIBITORS, SIMVASTATIN Current Problems: Active problems - Computerized Problem List is the source for the following: PROBLEM 1. Aneurysm of thoracic aorta 2. Loose stool 3. History of left hip replacement 4. Benign Prostatic Hypertrophy without Outflow Obstruction ([facility] 071140391) 5. Vitamin D deficiency 6. CAD - Coronary Artery Disease ([facility] 00432574) 7. Dementia ([facility] 55078713) 8. Hyperlipidemia ([facility] 58367963) 9. Diabetes Mellitus Type 2 ([facility] 61200192) 10. HTN - Hypertension ([facility] 61124122) 11. Diabetic neuropathy 12. Stented artery 13. OA - Osteoarthritis ([facility] 370008671) 14. GERD - Gastro-Esophageal Reflux Disease ([facility] 320710720) /es/ LASHAWN MCNEILL Registered Nurse Signed: 08/18/2024 11:48 LASHAWN MCNEILL [facility]
--- OUTSIDE RECORDS SUMMARY | 2025-01-21 13:02 | XMS_ITS | Encounter Summary ---
Author Name [facility] [place] Address [address] [place] [address] Care Team Providers Care Cork Tipper Name Role Phone KARON GARCIA Primary Care [...] B EXC) MAXIMO PALMA Jul 22, 2023 [id number] RUSSELL SEO DELONTE PATIENT [employer]ETNA PREFERRED PROVIDER ORGANIZAT ION (PPO) MAXIMO PALMA Apr 22, 2023 [id number] [phone] GABBI,GE DELONTE PATIENT [employer] PREFERRED PROVIDER ORGANIZAT ION (PPO) MAXIMO PALMA Jun 23, 2014 [id number] RUSSELL SEOTrudy PATIENT AETNA PHARMACY PRESCRIPT ION NONE Feb 11, 2017 NONE [id number] RUSSELL SEO PATIENT AETNA PHARMACY PRESCRIPT ION NONE Feb 11, 2017 NONE [id number] [phone] RUSSELL SEO PATIENT AETNA RX PRESCRIPT ION RX PLAN Jun 23, 2021 [id number] RUSSELL SEO PATIENT AETNA RX PRESCRIPT ION RX PLAN Jun 23, 2021 [id number] RUSSELL SEO PATIENT AETNA RX PRESCRIPT ION FEHBP Jun 23, 2014 [id number] RUSSELL SEO PATIENT AETNA [facility] PREFERRED PROVIDER ORGANIZAT ION (PPO) MAXIMO PALMA Jun 23, 2014 [id number] [phone] RUSSELL SEO PATIENT MEDICARE (WNR) MEDICARE (M) PART B May 23, 2008 PART B [id number] RUSSELL SEO PATIENT MEDICARE (WNR) MEDICARE (M) PART B May 23, 2008 PART B [id number] RUSSELL SEO PATIENT MEDICARE (WNR) MEDICARE (M) PART A Apr 23, 2008 PART A [id number] RUSSELL SEO PATIENT MEDICARE (WNR) MEDICARE (M) PART A Apr 23, 2008 PART A [id number] RUSSELL SEO PATIENT MEDICARE (WNR) MEDICARE (M) PART A Apr 23, 2008 PART A [id number] [phone] RUSSELL SEO PATIENT MEDICARE (WNR) MEDICARE (M) PART B Apr 23, 2008 PART B [id number] [phone] RUSSELL SEO PATIENT Selected Encounter This section includes the information on record at [place] for the Encounter. Date/Time Encounter Type Encounter Description Reason Pro vider Source IHE Encounter Template Text not used by [place] Advance Directives: All historical and current Section Date Range: From patient's date of to the date document was created. This section includes ALL of a patient's completed or amended [place] Advance and Rescinded Directives. The entries below indicate that a directive exists for the patient, but an actual copy is not included with this document. The data comes from all [place] facilities. Date Advance Directives Provider Source Jan 14, 2022 ADVANCE DIRECTIVE DISCUSSION SHEA WINTER [facility]
--- OUTSIDE RECORDS SUMMARY | 2025-01-21 13:02 | XMS_ITS ---
Author Name [facility] [place] Organization [facility] [place] Address [address] [place] [address] Care Team Providers Care Salt Refiner Name Role Phone KARON GARCIA Primary Care [...] B EXC) MAXIMO PALMA Jul 22, 2023 [id number] GABBI,GE DELONTE PATIENT AETNA PREFERRED PROVIDER ORGANIZAT ION (PPO) MAXIMO PALMA Apr 22, 2023 [id number] [phone] GABBIRUSSELL RUSHTrudy PATIENT AETNA PREFERRED PROVIDER ORGANIZAT ION (PPO) MAXIMO PALMA Jun 23, 2014 [id number] [phone] RUSSELL SEOTrudy PATIENT AETNA PHARMACY PRESCRIPT ION NONE Feb 11, 2017 NONE [id number] RUSSELL SEO PATIENT AETNA PHARMACY PRESCRIPT ION NONE Feb 11, 2017 NONE [id number] RUSSELL SEO PATIENT AETNA RX PRESCRIPT ION RX PLAN Jun 23, 2021 [id number] RUSSELL SEO PATIENT AETNA RX PRESCRIPT ION RX PLAN Jun 23, 2021 [id number] RUSSELL SEO PATIENT AETNA RX PRESCRIPT ION FEHBP Jun 23, 2014 [id number] RUSSELL SEO PATIENT AETNA [facility] PREFERRED PROVIDER ORGANIZAT ION (PPO) MAXIMO PALMA Jun 23, 2014 [id number] RUSSELL SEO PATIENT MEDICARE (WNR) MEDICARE () PART B May 23, 2008 PART B [id number] RUSSELL SEO PATIENT MEDICARE (WNR) MEDICARE () PART B May 23, 2008 PART B [id number] RUSSELL SEOD PATIENT MEDICARE (WNR) MEDICARE () PART A Apr 23, 2008 PART A [id number] RUSSELL SEO PATIENT MEDICARE (WNR) MEDICARE () PART A Apr 23, 2008 PART A [id number] RUSSELL SEOD PATIENT MEDICARE (WNR) MEDICARE () PART A Apr 23, 2008 PART A [id number] RUSSELL SEOD PATIENT MEDICARE (WNR) MEDICARE () PART B Apr 23, 2008 PART B [id number] RUSSELL SEO PATIENT Selected Encounter This section includes the information on record at [place] for the Encounter. Date/Time Encounter Type Encounter Description Reason Provider Source November 01, 2024 10:30 AM PT EDUCATION [facility]OC [facility] ICD-10-CM Z72.3 Lack of physical exercise RUSSELL,JOSE ANGEL P IHE Encounter Template Text not used by [facility] Assessments - Encounter Diagnoses This section includes the primary and secondary diagnoses documented for the Encounter. Date/Time Primary/Secondary Diagnosis Diagnosis Name Provider Source November 01, 2024 11:04 AM PRIMARY Lack of physical exercise [place] WINTER [facility] Plan of Treatment: Future Appointments (+ 6 months) and Future Tests (+/- 45 days) The Plan of Treatment section includes future care activities for the patient from all [place] treatmentfacilities. This section includes future appointments and future orders which are active, pending or scheduled. Future Appointments This section includes appointments that were scheduled to occur 6 months from the date of the Encounter, up to a maximum of 20 appointments. The data comes from all [facility]. Appointment Date/Time Appointment Type Appointme nt Facility Name November 09, 2024 01:30 PM AMBULATORY - SURGERY . [facility] Dec 07, 2024 11:00 AM AMBULATORY - MEDICINE [facility] Dec 27, 2024 10:30 AM AMBULATORY - MEDICINE [facility] Jan 07, 2025 08:00 AM AMBULATORY - NONE [facility] Feb 17, 2025 01:00 PM AMBULATORY - SURGERY [facility] Mar 24, 2025 02:30 PM AMBULATORY - MEDICINE [facility] Active, Pending, and Scheduled Orders This section includes a listing of several types of active, pending, and scheduled orders, including clinic medications orders, diagnostic test orders, procedure orders and consult orders; where the start date of the order is 45 days before the date of the Encounter or 45 days after the date of theEncounter. The data comes from all [facility]. Test Date/Time Test Type Test Details Facility Name Dec 14, 2024 01:30 PM Consult Order [facility] Cons [employer] Advance Directives: All historical and current Section Date Range: From patient's date of to the date document was created. This section includes ALL of a patient's completed or amended [place] Advance and Rescinded Directives. The entries below indicate that a directive exists for the patient, but an actual copy is not included with this document. The data comes from all [place] facilities. Date Advance Directives Provider Source Jan 14, 2022 ADVANCE DIRECTIVE DISCUSSION SHEA WINTER [facility] Encounter Notes: All associated encounter notes This section contains the clinical notes associated to the Encounter. Date/Time Encounter Note(s) Provider Source November 01, 2024 10:30 AM CARE COORDINATION HOME TELEHEALTH VIDEO VISIT NOTE: LOCAL TITLE: GEROFIT VVC SUPERVISED EXERCISE NOTE [facility] STANDARD TITLE: CARE COORDINATION HOME TELEHEALTH VIDEO VISIT NO DATE OF NOTE: NOVEMBER 01, 2024@10:30 ENTRY DATE: NOVEMBER 01, 2024@10:51:26 AUTHOR: MI WINTER EXP COSIGNER: URGENCY: STATUS: COMPLETED Gerofit Telehealth Remote Supervised Exercise Note Carnation Provided informed consent to receive treatment via Telehealth. mailed and has been made verbally aware of [facility] [place] practices.Carnation participated remotely in the Gerofit exercise program today through [employer]. Activities were focused on progression of their [...] Total Duration (minutes) for session: 90 Address: [facility] Nikita Quiroz; [address] [place] [address]; [place] [id number] Contact Information: Rosemary [phone] /es/ Mi PATEL Child Support Officer Signed: 11/01/2024 11:05 [place] W[facility]
--- OUTSIDE RECORDS SUMMARY | 2025-01-21 13:02 | XMS_ITS | Encounter Summary ---
Author Name [facility] [place] Organization [facility] [place] Address [address] [place] [address] Care Team Providers Care Change Management Consultant Name Role Phone KARON GARCIA Primary Care [...] B EXC) MAXIMO PALMA Jul 22, 2023 [id number] [phone] GABBI,GE DELONTE PATIENT [employer] PREFERRED PROVIDER ORGANIZAT ION (PPO) MAXIMO PALMA Apr 22, 2023 [id number] [phone] GABBIRUSSELL RUSHTrudy PATIENT [employer] PREFERRED PROVIDER ORGANIZAT ION (PPO) MAXIMO PALMA Jun 23, 2014 [id number] RUSSELL SEO PATIENT [employer]NA PHARMACY PRESCRIPT ION NONE Feb 11, 2017 NONE [id number] RUSSELL SEO PATIENT [employer] PHARMACY PRESCRIPT ION NONE Feb 11, 2017 NONE [id number] [phone] RUSSELL SEO PATIENT [employer] RX PRESCRIPT ION RX PLAN Jun 23, 2021 [id number] RUSSELL SEOD PATIENT [employer] RX PRESCRIPT ION RX PLAN Jun 23, 2021 [id number] RUSSELL SEO PATIENT [employer] RX PRESCRIPT ION FEHBP Jun 23, 2014 [id number] RUSSELL SEO PATIENT AETNA [facility] PREFERRED PROVIDER ORGANIZAT ION (PPO) MAXIMO PALMA Jun 23, 2014 [id number] RUSSELL SEOD PATIENT MEDICARE (WNR) MEDICARE () PART B May 23, 2008 PART B [id number] [phone] RUSSELL SEOD PATIENT MEDICARE (WNR) MEDICARE () PART B May 23, 2008 PART B [id number] [phone] RUSSELL SEOD PATIENT MEDICARE (WNR) MEDICARE () PART A Apr 23, 2008 PART A [id number] RUSSELL SEOD PATIENT MEDICARE (WNR) MEDICARE () PART A Apr 23, 2008 PART A [id number] RUSSELL SEOD PATIENT MEDICARE (WNR) MEDICARE () PART A Apr 23, 2008 PART A [id number] [phone] RUSSELL SEOD PATIENT MEDICARE (WNR) MEDICARE () PART B Apr 23, 2008 PART B [id number] [phone] RUSSELL SEO PATIENT Selected Encounter This section includes the information on record at [place] for the Encounter. Date/Time Encounter Type Encounter Description Reason Provider Source Mar 01, 2024 10:30 AM OFFICE O/P EST LOW 20 MIN GENERAL SURGERY ICD-10-CM 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 LEISA MATHIS IHKarel Encounter Template Text not used by [place] Assessments - Encounter Diagnoses This section includes the primary and secondary diagnoses documented for the Encounter. Date/Time Primary/Secondary Diagnosis Diagnosis Name Provider Source Mar 10, 2024 06:47 AM PRIMARY Fistula of gallbladder WILLYLUCIANFADI Fredy [facility] Plan of Treatment: Future Appointments (+ 6 months) and Future Tests (+/- 45 days) The Plan of Treatment section includes future care activities for the patient from all [place] [facility] This section includes future appointments and future orders which are active, pending or scheduled. Future Appointments This section includes appointments that were scheduled to occur 6 months from the date of the Encounter, up to a maximum of 20 appointments. The data comes from all [facility]. Appointment Date/Time Appointment Type Appointme nt Facility Name Mar 26, 2024 10:30 AM AMBULATORY - MEDICINE [facility] Apr 12, 2024 01:00 PM AMBULATORY - SURGERY [facility] Apr 14, 2024 02:00 PM AMBULATORY - MEDICINE [facility] May 06, 2024 11:00 AM AMBULATORY - MEDICINE [facility] May 10, 2024 06:00 AM AMBULATORY - NONE . [facility] May 12, 2024 01:00 PM AMBULATORY - MEDICINE [facility] May 19, 2024 01:30 PM AMBULATORY - SURGERY [facility] May 31, 2024 10:00 AM AMBULATORY - NONE [facility] Aug 18, 2024 11:41 AM AMBULATORY - MEDICINE EMERITA Samuels [facility] Aug 19, 2024 08:30 AM AMBULATORY - NONE ROMERO Samuels [facility] Active, Pending, and Scheduled Orders This section includes a listing of several types of active, pending, and scheduled orders, including clinic medications orders, diagnostic test orders, procedure orders and consult orders; where the start date of the order is 45 days before the date of the Encounter or 45 days after the date of theEncounter. The data comes from all [facility]. Test Date/Time Test Type Test Details Facility Name Mar 01, 2024 12:00 AM Laboratory - Blood Bank Order TYPE & SCREEN - LAB BLOOD SP [facility] Mar 26, 2024 12:00 AM Laboratory - Chemi stry Order CYSTATIN C EGFR PANELS (STL-PB-MA) GREEN LI/HEP BLD/PLAS PLASMA [facility] Lab Results: +/- 30 [...] Type Comment Mar 26, 2024 11:30 AM [facility] MICRAL/CREAT PROFILE (STL) URINE Specimen Typ e: URINE Comment: uALB/CREAT Ratio Unable to be calculated Unable to calculate due to Microalbumin < 5.0 mg/L Ordering Provider: STEVEN SCHMIDT Report Released Date/Time: Mar 26, 2024 08:32 AM Reporting Lab: [address] [id number] Performing Lab: [address] [address] URINE ALBUMIN (PB-STL) <5.0 mg/L uACR (STL) comment mg/g 0-29 CREATININE URINE/OTHERS 75.5 mg/dL 63-16 6 Mar 01, 2024 12:51 PM [facility] PT/INR NEW (STL-MA) PLASMA Specimen Type: PLAS MA No comment entered. Ordering Provider: LEISA MATHIS Report Released Date/Time: Mar 01, 2024 12:16 PM Reporting Lab: [facility] [address] [place] [id number] Performing Lab: [address] [address] PROTIME 12.7 s H 9.4-12.5 INR VALUE 1.1 {INR} Mar 01, 2024 12:51 PM [facility] COMPREHENSIVE METABOLIC PANEL PLASMA Specimen Type: PLASMA Comment: No hemolysis noted. Ordering Provider: LEISA MATHIS Report Released Date/Time: Mar 01, 2024 12:16 PM Reporting Lab: [place] [id number] [place] [id number] Performing Lab: [address] [address] CREATININE 1.37 mg/dL H 0.7-1.3 UREA NITROGEN [...] 52.2 >60 Mar 01, 2024 12:51 PM [facility] CBC BLOOD Specimen Type: BLOOD No comment entered. Ordering Provider: LEISA MATHIS Report Released Date/Time: Mar 01, 2024 12:16 PM Reporting Lab: [address] [address] Performing Lab: [address] [phone] WBC 9.4 10*3/uL 3.6-11.2 RBC 4.90 10*6/uL [...] 0.00-0. 20 Feb 05, 2024 01:14 PM [facility] GLUCOSE,BLOOD-poct (STL) BLOOD Specimen Type: BLOOD Comment: Test Performed by: [id number] Meter #: [id number] Ordering Provider: STEVEN SCHMIDT Report Released Date/Time: Feb 05, 2024 01:26 PM Reporting Lab: [facility] [address] [phone] Performing Lab: [facility] [address] [address] GLUCOSE,BLOOD-poct (STL) 105 mg/dL H 72-99 Vital Signs: All taken on the encounter date This section contains inpatient and outpatient Vital Signs collected on the date of the Encounter. Date/Time Temperature Pulse Blood Pressure Respiratory Rate SP02 Pain Height Weight Body Mass Index Source Mar 01, 2024 11:23 AM 98.1 93 102/60 18 98 0 72 221 30 [facility] Advance Directives: All historical and current Section Date Range: From patient's date of to the date document was created. This section includes ALL of a patient's completed or amended [place] Advance and Rescinded Directives. The entries below indicate that a directive exists for the patient, but an actual copy is not included with this document. The data comes from all [place] facilities. Date Advance Directives Provider Source Jan 14, 2022 ADVANCE DIRECTIVE DISCUSSION [facility] Radiology Reports: +/- 30 days [...] the Encounter. The data comes from all [place] treatment facilities. Date/Time Radiology Report Provider Source Mar 01, 2024 01:21 PM CHEST X-RAY, 2 VIEWS: LORETO SEO [id number] -[id number] M Exm Date: MAR 01, 2024@13:21 Req Phys: ALY GO Loc: -GEN SURG HEPATOBILIARY (Req Img Loc: -MAIN RADIOLOGY SUITE Service: Unknown [facility] [address] [place] [address] (Case [id number] COMPLETE) CHEST X-RAY, 2 VIEWS (RAD Detailed) CPT:01856 Reason for Study: preop Clinical History: Report Status: Verified Date Reported: MAR 01, 2024 Date Verified: MAR 01, 2024 Equine Intern E-Sig:/ES/Christopher Dumont MD. FACR. Report: History: preop. [...] Interpreting Staff: Christopher Dumont MD. FACR, Neuroradiologist (Equine Intern) /[facility] Feb 05, 2024 02:47 PM OBSTRUCTIVE SERIES: LORETO SEO [id number] -1945 M Exm Date: FEB 05, 2024@14:47 Req Phys: NELLY LIZARRAGA Loc: -GI/ENDO LAB ANESTHESIA2 (Re Img Loc: -MAIN RADIOLOGY SUITE Service: Unknown [facility] [address] [place] [address] (Case [id number] COMPLETE) OBSTRUCTIVE SERIES (RAD Detailed) CPT:19842 Reason for Study: localize endoscopic clip, placed at lumenal defect, GB fistula? Clinical History: Report Status: Verified Date Reported: FEB 06, 2024 Date Verified: FEB 06, 2024 Equine Intern E-Sig:/ES/ALEX DE ANDA MD Report: Case #[id number]. [...] DE ANDA MD, Staff Physician - Radiologist (Equine Intern) /ALEX [facility] Encounter Notes: All associated encounter notes This section contains the clinical notes associated to the Encounter. Date/Time Encounter Note(s) Provider Source Mar 23, 2024 03:53 PM ADDENDUM: LOCAL TITLE: Addendum STANDARD TITLE: ADDENDUM DATE OF NOTE: MAR 23, 2024@15:53:49 ENTRY DATE: MAR 23, 2024@15:53:50 AUTHOR: TAMIE KEBEDE EXP COSIGNER: URGENCY: STATUS: COMPLETED Eden is asking for a return call from the clinic to discuss next steps following [id number] visit. states that a surgery was discussed to remove his gallbladder and is asking for further assistance. Thank you. 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 Pt last seen in clinic 12/01/23. Since then, he says he continues to have RUQ pain radiating to his back and up to his shoulder blades every week of two. Last episode was last week and the pain was constant and lasted for 4 days. He did not take any medication to help the pain and it resolved. He also had an episode of diarrhea 4 days ago that appeared black in color. This episode lasted for 2 days and is getting better now. He is still having looser stools than normal but the color is more brown. Denies n/v, odynophagia, chest pain. O: Temp: 98.1 F [36.7 C] (03/01/2024 11:23) Pulse Ox: Measurement DT POx (L/MIN)(%) 03/01/2024 11:23 98 12/01/2023 10:41 99 11/21/2023 13:42 96 09/24/2023 12:58 95 PULSE: 93 (03/01/2024 11:23) RESPIRATION: 18 (03/01/2024 11:23) BLOOD PRESSURE: 102/60 (03/01/2024 11:23) Life Sustaining Treatment Orders PHYSICAL EXAM: NEURO: no focal deficit LUNGS: no respiratory distress HEART: no JVD noted ABDOMEN: Mildly tender to palpation in RUQ LABS: CHEM 7: SODIUM 139 mEq/L 09/24/2023 13:00 POTASSIUM 3.8 mEq/L 09/24/2023 13:00 CHLORIDE 107 mEq/L 09/24/2023 13:00 UREA NITROGEN 14.9 mg/dL 09/24/2023 13:00 CREATININE 1.13 mg/dL 09/24/2023 13:00 CALCIUM 9.6 mg/dL 09/24/2023 13:00 CARBON DIOXIDE 24 mEq/L 09/24/2023 13:00 GLUCOSE 166 H mg/dL 09/24/2023 13:00 EGFR (CKD-EPI 2020) 65.7 09/24/2023 13:00 CBC: WBC 5.2 10*3/uL 09/24/2023 13:00 RBC 4.95 [...] 13:00 BASOPHILS, ABSOLUTE 0.03 10*3/uL 09/24/2023 13:00 ACTIVE INPT MEDS: No medications found. 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 - Plan to schedule patient for laparoscopic/robotic cholecystectomy with colonic fistula takedown. - Pre-op labs today. - Schedule pre-op CXR and EKG. - Pt counseled on risks of procedure, including bleeding, infection, damage to surrounding structures, etc. Fadi Tolentino, MS3 /es/ FADI TOLENTINO Signed: 03/01/2024 13:58 /es/ LEISA MATHIS SURGEON Cosigned: 03/01/2024 16:32 03/01/2024 ADDENDUM STATUS: COMPLETED Patient seen and examined. Patient with chronic cholecystitis and possible fistula to hepatic flexure of the colon. On exam, minimal RUQ pain. He is ambulatory and states he's able to walk up a flight of stairs without chest pain or shortness of breath. Discussed indications, risks including bleeding, bile duct injury/bile leak, colon leak; benefits, alternative such as no surgery and personnel for minimally invasive, possible open cholecystectomy and possible cholecystocolonic fistula takedown. Will need cardiac/preop risk stratification. 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 Pt last seen in clinic 12/01/23. Since then, he says he continues to have RUQ pain radiating to his back and up to his shoulder blades every week of two. Last episode was last week and the pain was constant and lasted for 4 days. He did not take any medication to help the pain and it resolved. He also had an episode of diarrhea 4 days ago that appeared black in color. This episode lasted for 2 days and is getting better now. He is still having looser stools than normal but the color is more brown. Denies n/v, odynophagia, chest pain. O: Temp: 98.1 F [36.7 C] (03/01/2024 11:23) Pulse Ox: Measurement DT POx (L/MIN)(%) 03/01/2024 11:23 98 12/01/2023 10:41 99 11/21/2023 13:42 96 09/24/2023 12:58 95 PULSE: 93 (03/01/2024 11:23) RESPIRATION: 18 (03/01/2024 11:23) BLOOD PRESSURE: 102/60 (03/01/2024 11:23) Life Sustaining Treatment Orders PHYSICAL EXAM: NEURO: no focal deficit LUNGS: no respiratory distress HEART: no JVD noted ABDOMEN: Mildly tender to palpation in RUQ LABS: CHEM 7: SODIUM 139 mEq/L 09/24/2023 13:00 POTASSIUM 3.8 mEq/L 09/24/2023 13:00 CHLORIDE 107 mEq/L 09/24/2023 13:00 UREA NITROGEN 14.9 mg/dL 09/24/2023 13:00 CREATININE 1.13 mg/dL 09/24/2023 13:00 CALCIUM 9.6 mg/dL 09/24/2023 13:00 CARBON DIOXIDE 24 mEq/L 09/24/2023 13:00 GLUCOSE 166 H mg/dL 09/24/2023 13:00 EGFR (CKD-EPI 2020) 65.7 09/24/2023 13:00 CBC: WBC 5.2 10*3/uL 09/24/2023 13:00 RBC 4.95 [...] 13:00 BASOPHILS, ABSOLUTE 0.03 10*3/uL 09/24/2023 13:00 ACTIVE INPT MEDS: No medications found. 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 - Plan to schedule patient for laparoscopic/robotic cholecystectomy with colonic fistula takedown. - Pre-op labs today. - Schedule pre-op CXR and EKG. - Pt counseled on risks of procedure, including bleeding, infection, damage to surrounding structures, etc. JOYCE Deng /leobardo/ FADI TOLENTINO Signed: 03/01/2024 13:58 /leobardo/ LEISA MATHIS SURGEON Cosigned: 03/01/2024 16:32 03/01/2024 ADDENDUM STATUS: COMPLETED Patient seen and examined. Patient with chronic cholecystitis and possible fistula to hepatic flexure of the colon. On exam, minimal RUQ pain. He is ambulatory and states he's able to walk up a flight of stairs without chest pain or shortness of breath. Discussed indications, risks including bleeding, bile duct injury/bile leak, colon leak; benefits, alternative such as no surgery and personnel for minimally invasive, possible open cholecystectomy and possible cholecystocolonic fistula takedown. Will need cardiac/preop risk stratification. preop labs today /leobardo/ LEISA MATHIS SURGEON Signed: 03/01/2024 16:36 03/23/2024 ADDENDUM STATUS: COMPLETED Eden is asking for a return call from the clinic to discuss next steps following [id number] visit. states that a surgery was discussed to remove his gallbladder and is asking for further assistance. Thank you. /leobardo/ TAMIE KEBEDE Signed: 03/23/2024 15:56 Receipt Acknowledged By: * AWAITING SIGNATURE * LEISA MATHIS [facility]
--- OUTSIDE RECORDS SUMMARY | 2025-01-21 13:02 | XMS_ITS | Encounter Summary ---
Author Name [facility] [place] [facility] [place] Address [address] [place] [address] Care Team Providers Care Assisted Living Home Director Name Role Phone KARON GARCIA Primary Care [...] B EXC) MAXIMO PALMA Jul 22, 2023 [id number] GABBI,GE DELONTE PATIENT [employer] PREFERRED PROVIDER ORGANIZAT ION (PPO) MAXIMO PALMA Apr 22, 2023 [id number] GABBIRUSSELL RUSHTrudy PATIENT [employer] PREFERRED PROVIDER ORGANIZAT ION (PPO) MAXIMO PALMA Jun 23, 2014 [id number] RUSSELL SEO PATIENT [employer] PHARMACY PRESCRIPT ION NONE Feb 11, 2017 NONE [id number] [phone] RUSSELL SEO PATIENT [employer] PHARMACY PRESCRIPT ION NONE Feb 11, 2017 NONE [id number] RUSSELL SEO PATIENT [employer] RX PRESCRIPT ION RX PLAN Jun 23, 2021 [id number] RUSSELL SEOD PATIENT [employer] RX PRESCRIPT ION RX PLAN Jun 23, 2021 [id number] RUSSELL SEO PATIENT [employer] RX PRESCRIPT ION FEHBP Jun 23, 2014 [id number] RUSSELL SEO PATIENT [facility]ETNA [facility] PREFERRED PROVIDER ORGANIZAT ION (PPO) MAXIMO PALMA Jun 23, 2014 [id number] RUSSELL SEOD PATIENT MEDICARE (WNR) MEDICARE (M) PART B May 23, 2008 PART B [id number] RUSSELL SEOD PATIENT MEDICARE (WNR) MEDICARE (M) PART B May 23, 2008 PART B [id number] [phone] RUSSELL SEOD PATIENT MEDICARE (WNR) MEDICARE (M) PART A Apr 23, 2008 PART A [id number] RUSSELL SEOD PATIENT MEDICARE (WNR) MEDICARE (M) PART A Apr 23, 2008 PART A [id number] [phone] RUSSELL SEOD PATIENT MEDICARE (WNR) MEDICARE (M) PART A Apr 23, 2008 PART A [id number] [phone] RUSSELL SEOD PATIENT MEDICARE (WNR) MEDICARE (M) PART B Apr 23, 2008 PART B [id number] [phone] RUSSELL SEO PATIENT Selected Encounter This section includes the information on record at [place] for the Encounter. Date/Time Encounter Type Encounter Description Reason Provider Source May 10, 2024 11:59 AM HOSP IP/OBS SAME DATE MOD 70 GENERAL SURGERY ICD-10-CM K81.1 Chronic cholecystitis ARACELI MATHIS IHE Encounter Template Text not used by DC Assessments - Encounter Diagnoses This section includes the primary and secondary diagnoses documented for the Encounter. Date/Time Primary/Secondary Diagnosis Diagnosis Name Provider Source May 21, 2024 09:00 AM PRIMARY Chronic cholecystitis ARACELI MATHIS [facility] Plan of Treatment: Future Appointments (+ 6 months) and Future Tests (+/- 45 days) The Plan of Treatment section includes future care activities for the patient [facility] This section includes future appointments and future orders which are active, pending or scheduled. Future Appointments This section includes appointments that were scheduled to occur 6 months from the date of the Encounter, up to a maximum of 20 appointments. The data comes from all [facility]. Appointment Date/Time Appointment Type Appointme nt Facility Name May 12, 2024 01:00 PM AMBULATORY - MEDICINE [facility] May 19, 2024 01:30 PM AMBULATORY - SURGERY [facility] May 31, 2024 10:00 AM AMBULATORY - NONE [facility] Aug 18, 2024 11:41 AM AMBULATORY - MEDICINE [facility] Aug 19, 2024 08:30 AM AMBULATORY - NONE [facility] Sep 22, 2024 11:30 AM AMBULATORY - MEDICINE [facility] Active, Pending, and Scheduled Orders This section includes a listing of several types of active, pending, and scheduled orders, including clinic medications orders, diagnostic test orders, procedure orders and consult orders; where the start date of the order is 45 days before the date of the Encounter or 45 days after the date of theEncounter. The data comes from all [facility]. Test Date/Time Test Type Test Details Facility Name Mar 26, 2024 12:00 AM Laboratory - Chemi stry Order CYSTATIN C EGFR PANELS (STL-PB-MA) GREEN LI/HEP BLD/PLAS PLASMA SP [facility] Lab Results: +/- 30 days of the encounter This section includes the Chemistry and Hematology Lab Results on record with [place] for the patient. Radiology Reports and Pathology Reports are provided separately, in subsequent sections. Lab Results This section contains the Chemistry/Hematology Results that were resulted 30 days before or 30 daysafter the date of the Encounter. Date/Time Source Result Type Result - Unit Interpretation Reference Range Specimen Type Comment May 11, 2024 05:42 AM [facility] GLU[facility]BLOOD-poct (STL) BLOOD Specimen Type: BLOOD Comment: Test Performed by: [id number] Meter #: [id number] Ordering Provider: DARY MORRISON Report Released Date/Time: May 11, 2024 06:36 AM Reporting Lab: [address] [id number] Performing Lab: [address] [address] GLUCOSE,BLOOD-poct (STL) 154 mg/dL H 72-99 May 11, 2024 12:40 AM [facility] BASIC METABOLIC PANEL PLASMA Specimen Type: PL ASMA Comment: No hemolysis noted. Ordering Provider: EDDIE HAYES Report Released Date/Time: May 10, 2024 11:48 PM Reporting Lab: [address] [address] Performing Lab: [address] [address] CREATININE 1.14 mg/dL 0.7-1.3 UREA NITROGEN 17.3 mg/dL 9.0-25.0 GLUCOSE 236 mg/dL H 72-99 SODIUM 136 meq/L 136-145 POTASSIUM 4.3 meq/L 3.5-5 CHLORIDE 105 meq/L 98-107 CARBON DIOXIDE 21 meq/L L 22-31 CALCIUM 9.2 mg/dL 8.4-10.4 EGFR (CKD-EPI 2020) 64.6 >60 May 11, 2024 12:40 AM [facility] CBC BLOOD Specimen Type: BLOOD No comment entered. Ordering Provider: EDDIE HAYES Report Released Date/Time: May 10, 2024 11:48 PM Reporting Lab: [address] [address] Performing Lab: [address] [address] WBC 13.3 10*3/uL H 3.6-11.2 RBC 4.49 [...] 0.00-0. 20 May 10, 2024 08:21 PM [facility] GLU[facility]SE,BLOOD-poct (STL) BLOOD Specimen Type: BLOOD Comment: Test Performed by: [id number] Meter #: [id number] Ordering Provider: LORELEI MORRISON Report Released Date/Time: May 10, 2024 09:18 PM Reporting Lab: [address] [address] Performing Lab: [address] [address] GLUCOSE,BLOOD-poct (STL) 192 mg/dL H 72-99 May 10, 2024 04:13 PM [facility] GLUCOSE,BLOOD-poct (STL) BLOOD Specimen Type: BLOOD Comment: Test Performed by: [id number] Meter #: [id number] Ordering Provider: LORELEI MORRISON Report Released Date/Time: May 10, 2024 05:13 PM Reporting Lab: [address] [address] Performing Lab: [address] [address] GLUCOSE,BLOOD-poct (STL) 156 mg/dL H 72-99 May 10, 2024 12:47 PM [facility] MRSA SURVL NARES DNA NARES Specimen [...] May 10, 2024 12:47 PM Reporting Lab: [address] [address] Performing Lab: [address] [address] MRSA SURVL NARES DNA Negative Negative May 10, 2024 06:30 AM [facility] GLUCOSE,BLOOD-poct (STL) BLOOD Specimen Type: BLOOD Comment: Test Performed by: [id number] Meter #: [id number] Ordering Provider: BANDAR LONGORIA Report Released Date/Time: May 10, 2024 06:43 AM Reporting Lab: [address] [address] Performing Lab: [address] [address] GLUCOSE,BLOOD-poct (STL) 174 mg/dL H 72-99 Vital Signs: All taken on the encounter date This section contains inpatient and outpatient Vital Signs collected on the date of the Encounter. Date/Time Temperature Pulse Blood Pressure Respiratory Rate SP02 Pain Height Weight Body Mass Index Source May 10, 2024 08:19 PM 98.5 107 153/79 18 93 0 [facility] May 10, 2024 06:05 PM 97.5 105 149/79 18 94 [facility] May 10, 2024 01:23 PM 0 [facility] May 10, 2024 12:43 PM 97.5 84 159/73 18 96 [facility] May 10, 2024 06:30 AM 97.5 79 130/61 19 99 0 72 222 30 [facility] Advance Directives: All historical and current Section Date Range: From patient's date of to the date document was created. This section includes ALL of a patient's completed or amended [place] Advance and Rescinded Directives. The entries below indicate that a directive exists for the patient, but an actual copy is not included with this document. The data comes from all [place] facilities. Date Advance Directives Provider Source Jan 14, 2022 ADVANCE DIRECTIVE DISCUSSION [facility] Pathology Reports: +/- 30 days of [...] the Encounter. The data comes from all [place] treatment facilities. Date/Time Pathology Report Provider Source [...] - - - - $TEXT Submitted by: PAULINO CARR Date obtained: May 10, 2024 15:53 [...] Performing Laboratory: Surgical Pathology Report Performed By: [address] CLIA# [id number] 5 [facility] [address] [place] [address] $FTR - - - - - - [...] - - LORETO SEO STANDARD FORM 515 ID:[id number] SEX:M :1945 AGE: 79 LOC:APFEE PCP: Lorelei Morrison MD /leobardo/ CONCETTA GOMEZ Pathologist Signed: 05/11/2024 12:18 CONCETTA GOMEZ [facility] Encounter Notes: All associated encounter notes This section contains the clinical notes associated to the Encounter. Date/Time Encounter Note(s) Provider Source May 10, 2024 12:00 PM OPERATIVE NOTE: LOCAL TITLE: BRIEF OP NOTE STL STANDARD TITLE: OPERATIVE NOTE DATE OF NOTE: MAY 10, 2024@12:00 ENTRY DATE: MAY 10, 2024@12:00:33 AUTHOR: PAULINO CARR EXP COSIGNER: ARACELI MATHIS URGENCY: STATUS: COMPLETED Date of Surgery:05/10/2024 Surgery Case #:[id number] Pre-Operative Diagnosis:Cholecystitis, noble-colonic fistule Post-Operative Diagnosis:same Surgery Performed:Subtotal fenestrating cholecystectomy, noble-colonic fistula takedown Attending:Araceli Mathis MD Surgeon:Paulino Carr MD 1st Director Immunology:Lorelei Morrison MD Type of Anesthesia:geta Specimens:Yes If yes, Type and number of specimens: Gallbladder Findings: Subtotal cholecystectomy Complications:None Estimated Blood Loss:Minimal Blood Given? No If yes, how much? Fluid Replacement:see anestheia noted Status En-Route to PACU? Critical: No Satisfactory: Yes Operative Note Dictation Job#:Note typed /leobardo/ PAULINO CARR MD, MPH Resident Physician, General Surgery II Signed: 05/10/2024 12:14 /leobardo/ ARACELI MATHIS SURGEON Cosigned: 05/10/2024 17:20 PAULINO CARR [facility]
--- OUTSIDE RECORDS SUMMARY | 2025-01-21 13:02 | XMS_ITS | Encounter Summary ---
Author Name [facility] [facility] [place] Address [address] [place] [address] Care Team Providers Care Metal Inspector Name Role Phone KARON GARCIA Primary [...] B EXC) MAXIMO PALMA Jul 22, 2023 [id number] [phone] GABBIRUSSELL RUSHTrudy PATIENT [employer] PREFERRED PROVIDER ORGANIZAT ION (PPO) MAXIMO PALMA Apr 22, 2023 [id number] [phone] GABBI,GE DELONTE PATIENT [employer] PREFERRED PROVIDER ORGANIZAT ION (PPO) MAXIMO PALMA Jun 23, 2014 [id number] RUSSELL SEOTrudy PATIENT AETNA PHARMACY PRESCRIPT ION NONE Feb 11, 2017 NONE [id number] RUSSELL SEO PATIENT [employer] PHARMACY PRESCRIPT ION NONE Feb 11, 2017 NONE [id number] [phone] RUSSELL SEO PATIENT [employer] RX PRESCRIPT ION RX PLAN Jun 23, 2021 [id number] RUSSELL SEO PATIENT [employer]ET[employer] RX PRESCRIPT ION RX PLAN Jun 23, 2021 [id number] RUSSELL SEO PATIENT [employer]ET[employer] RX PRESCRIPT ION FEHBP Jun 23, 2014 [id number] [phone] RUSSELL SEO PATIENT AETNA [facility] PREFERRED PROVIDER ORGANIZAT ION (PPO) MAXIMO PALMA Jun 23, 2014 [id number] RUSSELL SEO PATIENT MEDICARE (WNR) MEDICARE () PART B May 23, 2008 PART B [id number] RUSSELL SEO PATIENT MEDICARE (WNR) MEDICARE () PART B May 23, 2008 PART B [id number] RUSSELL SEO PATIENT MEDICARE (WNR) MEDICARE () PART A Apr 23, 2008 PART A [id number] RUSSELL SEO PATIENT MEDICARE (WNR) MEDICARE () PART A Apr 23, 2008 PART A [id number] RUSSELL SEO PATIENT MEDICARE (WNR) MEDICARE () PART A Apr 23, 2008 PART A [id number] [phone] RUSSELL SEO PATIENT MEDICARE (WNR) MEDICARE () PART B Apr 23, 2008 PART B [id number] [phone] RUSSELL SEO PATIENT Selected Encounter This section includes the information on record at [place] for the Encounter. 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 Date/Time Primary/Secondary Diagnosis Diagnosis Name Provider Source Mar 26, 2024 10:46 AM PRIMARY Fistula of gallbladder SAMPLES,VINAY HANNA [facility] Mar 26, 2024 10:46 AM SECONDARY Abdominal aortic aneurysm, without rupture, unspecified SAMPLES,VINAY HANNA [facility] Mar 26, 2024 10:46 AM SECONDARY Coronary atherosclerosis due to lipid rich plaque SAMPLES,VINAY HANNA [facility] Mar 26, 2024 10:46 AM SECONDARY Essential (primary) hypertension SAMPLES,VINAY HANNA [facility] Mar 26, 2024 10:46 AM SECONDARY Gastro-esophageal reflux disease without esophagitis SAMPLES,VINAY HANNA [facility] Mar 26, 2024 10:46 AM SECONDARY Hyperlipidemia, unspecified SAMPLES,VINAY HANNA [facility] Mar 26, 2024 10:46 AM SECONDARY Pain in unspecified knee SAMPLES,VINAY HANNA [facility] Mar 26, 2024 10:46 AM SECONDARY Type 2 diabetes mellitus with diabetic neuropathy, unsp SAMPLES,VINAY HANNA [facility] Plan of Treatment: Future Appointments (+ 6 months) and Future Tests (+/- 45 days) The Plan of Treatment section includes future care activities for the patient from all [facility]. This section includes future appointments and future orders which are active, pending or scheduled. Future Appointments This section includes appointments that were scheduled to occur 6 months from the date of the Encounter, up to a maximum of 20 appointments. The data comes from all [place] treatment facilities. Appointment Date/Time Appointment Type Appointme nt Facility Name Apr 12, 2024 01:00 PM AMBULATORY - SURGERY [facility] Apr 14, 2024 02:00 PM AMBULATORY - MEDICINE [facility] May 06, 2024 11:00 AM AMBULATORY - MEDICINE [facility] May 10, 2024 06:00 AM AMBULATORY - NONE [facility] May 12, 2024 01:00 PM AMBULATORY - MEDICINE [facility] May 19, 2024 01:30 PM AMBULATORY - SURGERY [facility] May 31, 2024 10:00 AM AMBULATORY - NONE [facility] Aug 18, 2024 11:41 AM AMBUL[facility]ORY - MEDICINE [facility] Aug 19, 2024 08:30 AM AMBULATORY - NONE [facility] Sep 22, 2024 11:30 AM AMBULATORY - MEDICINE KARLA FABIAN [facility] Active, Pending, and Scheduled Orders This section includes a listing of several types of active, pending, and scheduled orders, including clinic medications orders, diagnostic test orders, procedure orders and consult orders; where the start date of the order is 45 days before the date of the Encounter or 45 days after the date of theEncounter. The data comes from all [place] treatment facilities. Test Date/Time Test Type Test Details Facility Name Mar 01, 2024 12:00 AM Laboratory - Blood Bank Order TYPE & SCREEN - LAB BLOOD SP [facility] Mar 26, 2024 12:00 AM Laboratory - Chemi stry Order CYSTATIN C EGFR PANELS (STL-PB-MA) GREEN LI/HEP BLD/PLAS PLASMA SP [facility] Lab Results: +/- 30 days of [...] Type Comment Mar 26, 2024 11:30 AM [facility] MICRAL/CREAT PROFILE (STL) URINE Specimen Typ e: URINE Comment: uALB/CREAT Ratio Unable to be calculated Unable to calculate due to Microalbumin < 5.0 mg/L Ordering Provider: STEVEN SCHMIDT Report Released Date/Time: Mar 26, 2024 08:32 AM Reporting Lab: [facility] [address] [address] Performing Lab: [facility] [address] [address] URINE ALBUMIN (PB-STL) <5.0 mg/L uACR (STL) comment mg/g 0-29 CREATININE URINE/OTHERS 75.5 mg/dL 63-16 6 Mar 01, 2024 12:51 PM [facility] PT/INR NEW (STL-MA) PLASMA Specimen Type: PLAS MA No comment entered. Ordering Provider: LEISA MATHIS Report Released Date/Time: Mar 01, 2024 12:16 PM Reporting Lab: [address] [address] Performing Lab: [address] [address] PROTIME 12.7 s H 9.4-12.5 INR VALUE 1.1 {INR} Mar 01, 2024 12:51 PM [facility] CBC BLOOD Specimen Type: BLOOD No comment entered. Ordering Provider: LEISA MATHIS Report Released Date/Time: Mar 01, 2024 12:16 PM Reporting Lab: [address] [address] Performing Lab: [address] [address] WBC 9.4 10*3/uL 3.6-11.2 RBC 4.90 10*6/uL [...] 0.00-0. 20 Mar 01, 2024 12:51 PM [facility] COMPREHENSIVE METABOLIC PANEL PLASMA Specimen Type: PLASMA Comment: No hemolysis noted. Ordering Provider: LEISA MATHIS Report Released Date/Time: Mar 01, 2024 12:16 PM Reporting Lab: [facility] [address] [address] Performing Lab: [facility] [address] [address] CREATININE 1.37 mg/dL H 0.7-1.3 UREA NITROGEN [...] H 8-40 EGFR (CKD-EPI 2020) 52.2 >60 Vital Signs: All taken on the encounter date This section contains inpatient and outpatient Vital Signs collected on the date of the Encounter. Date/Time Temperature Pulse Blood Pressure Respiratory Rate SP02 Pain Height Weight Body Mass Index Source Mar 26, 2024 10:39 AM 122/68 [facility] Mar 26, 2024 10:32 AM 97.6 86 167/76 18 97 0 72 220.2 30 [facility] Social History: Smoking Status (Most current) and Tobacco Use (All prior to encounter date) This section includes the most current, and the historical, smoking and tobacco- related health factors from the [place] facility where the Encounter took place. Current Smoking Status This section includes the most current smoking, or tobacco-related health factor, from the [place] facility where the Encounter took place. Date/Time Current Smoking Status Comment Belinda ity Mar 26, 2024 10:30 AM MS-TOBACCO NEVER USED [facility] Tobacco Use History This section includes a history of the smoking, or tobacco-related health factors, that were collected on or before the date of the Encounter. The data comes from the [place] facility where the Encounter took place. Date/Time Smoking Status/Tobacco Use Comment F acility Feb 10, 2023 09:00 AM MS-TOBACCO NEVER USED [facility] Advance Directives: All historical and current Section Date Range: From patient's date of to the date document was created. This section includes ALL of a patient's completed or amended [place] Advance and Rescinded Directives. The entries below indicate that a directive exists for the patient, but an actual copy is not included with this document. The data comes from all [place] facilities. Date Advance Directives Provider Source Jan 14, 2022 ADVANCE DIRECTIVE DISCUSSION [facility] Radiology Reports: +/- 30 days of [...] the Encounter. The data comes from all [place] treatment facilities. Date/Time Radiology Report Provider Source Mar 01, 2024 01:21 PM CHEST X-RAY, 2 VIE WS: LORETO SEO [id number] [id number] M Exm Date: MAR 01, 2024@13:21 Req Phys: ALY GO Loc: [facility] (Req Img Loc: [facility] SUITE Service: [address] [address] (Case [id number] COMPLETE) CHEST X-RAY, 2 VIEWS (RAD Detailed) CPT:91359 Reason for Study: preop Clinical History: Report Status: Verified Date Reported: MAR 01, 2024 Date Verified: MAR 01, 2024 Geography Faculty Member E-Sig:/ES/Christopher Dumont MD. FACR. Report: History: preop. [...] Interpreting Staff: Christopher Dumont MD. FACR, Neuroradiologist (Geography Faculty Member) /CHRISTOPHER BENNETT [facility] Encounter Notes: All associated encounter notes This section contains the clinical notes associated to the Encounter. Date/Time Encounter Note(s) Provider Source Mar 29, 2024 02:21 PM ADDENDUM: LOCAL TITLE: Addendum STANDARD TITLE: ADDENDUM DATE OF NOTE: MAR 29, 2024@14:21:30 ENTRY DATE: MAR 29, 2024@14:21:31 AUTHOR: RETA LANDIN EXP COSIGNER: URGENCY: STATUS: COMPLETED RNCM placed call to pt. Patient identified by full name and . RNCM informed pt that [facility] will contact pt next week to schedule b/p f/u and asked pt to record b/p readings for f/u with [facility]. Pt endorses he also has been capturing his blood sugar as he is concerned with this causing his dizziness. pt reports that smbg was over 200 today and was over 200 on 03/27/24. RNCM reviewed hypoglycemia/hyperglycemia precautions with pt and signs/symptoms to seek care now and hypotension/hypertension precautions. Pt agreeable to have f/u with [facility] with SMBG and blood pressure. Patient verbalized good understanding and agreeable to plan. Patient denied additional questions or concerns at this time. alerting SKETCH ARTIST Samples of blood sugar, as well. /leobardo/ KAL DELA CRUZ, RN REGISTERED NURSE Signed: 03/29/2024 14:24 Receipt Acknowledged By: 03/29/2024 14:28 /leobardo/ STEVEN SCHMIDT MSN, LAUNDRY OPERATOR FINISHING, SILK SCREEN CUTTER-BC NURSE PRACTITIONER --- Original Document --- 03/26/24 PRIMARY CARE PROVIDER ESTABLISHED VISIT STL: ESTABLISHED PATIENT [id number]: REASON FOR VISIT/CHIEF COMPLAINT:Pt here today for follow up, c/o dizziness x 1 year HPI:78 year old WM WHAT IS YOUR GOAL FOR TODAY? follow up SOURCE(S) OF HISTORY: Patient PAST MEDICAL HISTORY: 1) Coronary artery disease 2) Hyperlipidemia 3) Benign essential hypertension 4) Diabetic neuropathy with neurologic complication 5) Abdominal aortic aneurysm 6) Gastroesophageal reflux disease 7) Knee pain 8) Callous character 9) Colonic fistula ALLERGIES: Life Sustaining Treatment Orders ALLERGY REVIEW: Allergy list reviewed and remains current. RXAE - Active/Exp Opt Meds 1) CARBOXYMETHYLCELLULOSE NA 0.5% OPH SOLN ACTIVE INSTILL 1 DROP IN BOTH EYES FOUR TIMES A DAY NEEDED FOR DRY EYE(S) 2) CETIRIZINE HCL 10MG TAB ACTIVE TAKE ONE TABLET BY MOUTH ONCE A DAY NEEDED FOR ALLERGY SYMPTOMS 3) CHOLECALCIF 50MCG (D3-2,000UNIT) TAB ACTIVE TAKE ONE TABLET BY MOUTH ONCE A DAY FOR VITAMIN D DEFICIENCY 4) CYANOCOBALAMIN 1000MCG TAB ACTIVE TAKE ONE TABLET BY MOUTH ONCE A DAY FOR VITAMIN B12 SUPPLEMENTATION 5) CYCLOBENZAPRINE HCL 10MG TAB ACTIVE TAKE ONE TABLET BY MOUTH AT BEDTIME NEEDED FOR MUSCLE SPASM MAY CAUSE DROWSINESS. DO NOT DRINK ALCOHOL WHILE TAKING THIS MEDICATION. 6) IRBESARTAN 150MG TAB ACTIVE TAKE ONE TABLET BY MOUTH ONCE A DAY FOR HIGH BLOOD PRESSURE NOTE: DOSE DECREASE 7) ISOSORBIDE MONONITRATE 30MG SA TAB ACTIVE TAKE ONE TABLET BY MOUTH ONCE A DAY FOR CHEST PAIN TAKE ON EMPTY STOMACH. SWALLOW WHOLE. DO NOT CRUSH OR CHEW. 8) METFORMIN HCL 1000MG TAB ACTIVE TAKE ONE TABLET BY MOUTH ONCE A DAY FOR DIABETES TAKE WITH FOOD. AVOID ALCOHOL. DISCONTINUE BEFORE GETTING XRAY DYE. 9) OMEPRAZOLE 40MG EC CAP ACTIVE TAKE ONE CAPSULE BY MOUTH EVERY MORNING BEFORE A MEAL TAKE 30 MINUTES PRIOR TO FOOD. 10) ASPIRIN 81MG EC TAB TAKE ONE TABLET BY MOUTH ONCE A DAY TAKE WITH FOOD. 11) ATORVASTATIN CALCIUM 80MG TAB TAKE ONE TABLET BY MOUTH EVERY EVENING FOR HIGH CHOLESTEROL 12) BENZONATATE 100MG CAP TAKE ONE CAPSULE BY MOUTH THREE TIMES A DAY NEEDED FOR COUGH 13) BISACODYL 5MG EC TAB TAKE TWO TABLETS BY MOUTH ONE TIME TAKE BISACODYL TABLETS AT 4PM ON AFTERNOON PRIOR TO TEST. CALL [phone] WITH ANY QUESTIONS ABOUT THESE INSTRUCTIONS. MAIL 14) CHOLESTYRAMINE 4GM/5GM (LIGHT) PWD PKT MIX AND DRINK 1 PACKET BY MOUTH TWICE DAILY NEEDED FOR CHRONIC DIARRHEA MIX WITH WATER DIRECTED. TAKE OTHER MEDICATIONS 1 HOUR BEFORE OR 6 HOURS AFTER ADMINISTRATION. 15) CLOPIDOGREL BISULFATE 75MG TAB TAKE ONE TABLET BY MOUTH ONCE A DAY FOR ACUTE CORONARY SYNDROME 16) DICLOFENAC NA 1% TOP GEL APPLY 4 GM TO AFFECTED AREA(S) FOUR TIMES A DAY NEEDED FOR PAIN DO NOT EXCEED MORE THAN 16 GRAMS DAILY TO ANY LOWER EXTREMITY JOINT. NOT MORE THAN 8 GRAMS DAILY TO ANY UPPER EXTREMITY JOINT. MAX 32GM/DAY OVER ALL JOINTS. (MEASURE DOSE WITH RULER ATTACHED INSIDE BOX) 17) DONEPEZIL HCL 10MG TAB TAKE ONE TABLET BY MOUTH AT BEDTIME FOR ALZHEIMER DISEASE (JUST BEFORE BEDTIME) 18) EMPAGLIFLOZIN 25MG TAB TAKE ONE-HALF TABLET BY MOUTH ONCE A DAY 19) GABAPENTIN 100MG CAP TAKE ONE CAPSULE BY MOUTH TWICE A DAY AND TAKE THREE CAPSULES AT BEDTIME FOR NERVE PAIN 20) IRBESARTAN 300MG TAB TAKE ONE TABLET BY MOUTH ONCE A DAY FOR HIGH BLOOD PRESSURE 21) METOPROLOL SUCCINATE 100MG SA TAB TAKE ONE-HALF TABLET BY MOUTH ONCE A DAY FOR HIGH BLOOD PRESSURE SWALLOW WHOLE, DO NOT CRUSH OR CHEW (TABLETS MAY BE CUT IN HALF). 22) POLYETHYLENE GLYCOL 3350 ORAL PWDR MIX AND DRINK 2 CAPFULS BY MOUTH ONCE A DAY FOR BOWEL EMPTYING (MEASURE WITH CAP AND MIX IN 8 OZ OF WATER) 23) SIMETHICONE 80MG CHEW TAB CHEW AND SWALLOW FOUR TABLETS BY MOUTH DIRECTED FOR GAS DISCOMFORT FOR TWO DOSES BEFORE GI PROCEDURE 24) BUSPIRONE HCL 10MG TAB ACTIVE/S TAKE ONE-HALF TABLET BY MOUTH ONCE A DAY DO NOT TAKE WITH GRAPEFRUIT JUICE. 25) TAMSULOSIN HCL 0.4MG CAP ACTIVE/S TAKE TWO CAPSULES BY MOUTH EVERY EVENING FOR BENIGN PROSTATIC HYPERPLASIA APPROXIMATELY 30 MINUTES AFTER THE SAME MEAL EACH DAY 26) ACCU-CHEK GUIDE (GLUCOSE) TEST STRIP ACTIVE USE 1 STRIP FOR BLOOD TEST DIRECTED *METFORMIN ALONE, 50 STRIPS PER YEAR Aug 27) ALCOHOL PREP PAD USE/APPLY PAD TO AFFECTED AREA(S) TWO TIMES PER WEEK FOR SKIN CLEANSING 28) LANCET,SOFTCLIX USE LANCET FOR BLOOD TEST TWO TIMES PER WEEK FOR BLOOD SUGAR MONITORING USE DIRECTED. Legend: ACTIVE/S means that the RX is 'active' and suspended for mailout. MEDICATION RECONCILIATION: I have reviewed the patient's medication list with the patient and/or his/her care-processing assistant. Handwritten corrections, additions and/or deletions were made to the list. Corrected Outpatient Medication List was provided to the patient/caregiver. DATA REVIEW: SODIUM 140 mEq/L 03/01/2024 12:51 POTASSIUM 4.4 [...] 12:51 EGFR (CKD-EPI 2020) 52.2 03/01/2024 12:51 WBC 9.4 10*3/uL 03/01/2024 12:51 RBC 4.90 [...] 12:51 BASOPHILS, ABSOLUTE 0.06 10*3/uL 03/01/2024 12:51 TRIGLYCERIDE 108 mg/dL 09/24/2023 13:00 CHOLESTEROL 151 mg/dL 09/24/2023 13:00 HDL(New) 47 mg/dL 09/24/2023 13:00 CALCULATED LDL 82 mg/dL 09/24/2023 13:00 TSH 2.136 uIU/mL 09/24/2023 13:00 VITAMIN D, 25-HYDROXY 35.8 ng/mL 09/24/2023 13:00 SLT - Lab Tests Selected Collection DT Specimen Test Name Result Units Ref Range 09/24/2023 13:00 BLOOD HGA1C 6.6 H % 4.0 - 6.0 02/10/2023 13:05 BLOOD HGA1C 6.8 H % 4.0 - 6.0 No PSA EO data found HbA1c No data available for: HGA1C Result: Acceptable Follow-up Action: Data results reviewed with patient and/or caregiver. Review of Systems: General: Denies fever, chills, weight loss, weight gain ENT: Denies sore throat, nasal discharge, tinnitus, loss of hearing Eye: Denies changes in vision, double vision Cardiovascular- Denies chest pain, palpitations, dizziness Respiratory: Denies SOB, cough, hemoptysis Abd/GI: Denies nausea, vomiting, diarrhea, constipation, pain MSK/Ext: Denies joint pain, trauma, stiffness, edema /RAMP FLIGHT ATTENDANT: Denies frequency, urgency, burning, odor, discharge Hemo/lymph: Denies easy bruising, fatigue, swollen nodes Endo: Denies excess thirst, hunger, urination Psych: Denies depression, anxiety, nightmares, insomnia Neuro: Denies headaches, tremors, seizures, head injury, neuropathy Skin: Denies laceration/abrasion, rash, itching, insect bites SMOKING STATUS:non smoker VSD - Detailed Vitals Date Vital Measurement Qualifiers 03/26/2024 10:39 BP 122/68 L Arm, Sitting, Adult Cuff, Cuff-Manual 03/26/2024 10:32 Temp F (C) 97.6 (36.4) Pulse 86 Respir 18 Ht in (cm) 72 (182.88) Wt lbs (kg)[BMI] 220.2 (99.88)[30*] Pain 0 POx (L/Min)(%) 97 Physical Exam: ENT: Pharynx clear, TMs clear EYE: PERRLA Cardiovascular: RRR, no murmurs, no carotid bruits, no edema Respiratory: Lungs CTAB Abd/GI: Abdomen soft, non-tender, non-distended, no masses or guarding Extremities: adequate ROM, no edema /RAMP FLIGHT ATTENDANT: No CVA or S/P tenderness Hemo/lymph: no adenopathy, excessive bruising Endo: Thyroid without palpable nodules, no excess hair growth Psych: mood and affect appropriate Neuro: Alert and oriented, CN2-12 grossly intact Skin: Clear and intact Assessment and Plan: 1. Healthcare maintenance- labs ordered 2. HTN/Dizziness- discussed possibility of hypotensive events, pt states Dr. Coffey reduced his irbesartan to 75mg and it seems that he has less dizziness. Pt also on Buspirone which can cause dizziness. Advised pt hold the buspirone if dizziness continues after reducd dose of antihypertensive. Subha, please follow BP's. Thanks 3. DM- cont current treatment 4. Thoracic Aortic Aneurysm- Pt reports last check was 4.7, followed by Dr. Coffey. 5. GERD- pt on omeprazole, cont 6. CAD/HLD- Followed by Dr. Coffey 7. B knee pain- completed PT, now in gerofit. Cont diclofenac gel 8. Anxiety- followed by . 9. Cholelithiasis- pt believes he is going to have surgery, is awaiting scheduling. Alerting Dr. Mathis. RETURN TO CLINIC:6 months SUMMARY STATEMENT: Plan of care has been discussed with including expected therapeutic benefits and potential side effects of prescribed medication and treatments. verbalizes understanding and is in agreement with the plan of care. Patient was instructed to keep all scheduled appointments and contact chief revenue officer for any additional problems. PREVENTION & SCREENING: ALCOHOL: Clinical Reminder not due now or within a month BLOOD PRESSURE: Clinical Reminder not due now or within a month HEMOGLOBIN A1C: Clinical Reminder not due now or within a month Cystatin C with eGFR Screen: The patient has a condition that may benefit from obtaining a Cystatin C test for accurate assessment of renal function. Cystatin C w/eGFR ordered for renal assessment. RHS Screen: RHS Screen Session Format: Face to Face Environmental Check Screening was not completed at this time due to: Another adult present Influenza Immunization: Deferral / Refusal The patient declines to receive the recommended dose of seasonal influenza vaccine. Immunization: INFLUENZA, UNSPECIFIED FORMULATION Refusal Reason: PATIENT DECISION Patient refuses all immunization(s) in the FLU group Date Documented: 03/26/24 10:49 HIV Screening (Routine): Patient has been offered HIV testing and has declined. I have explained that HIV testing is recommended for all adults, even if all risk factors are absent. PAVE Foot Check: Patient declined limb care exam. The patient was advised the [place] mandates all patients with diabetes mellitus, end stage renal disease, peripheral vascular disease, or sensory neuropathy should have a complete foot check completed annually. This includes a visual exam of the skin, pedal pulses and a sensory exam. Patients with any abnormality noted during the foot check should be referred to a specialist. [facility] MAP: PERSONAL HEALTH PLAN Pneumococcal Conjugate Vaccine (PCV15/PCV20): Refuses PCV vaccine Immunization: PNEUMOCOCCAL CONJUGATE, UNSPECIFIED FORMULATION Refusal Reason: PATIENT DECISION Patient refuses all immunization(s) in the PneumoPCV group Date Documented: 03/26/24 10:49 Prior Approval/Non-formulary Drug: MEDICATION USE EVALUATION Tdap Immunization: The patient declines to receive the recommended dose of Tdap vaccine. Immunization: TDAP Refusal Reason: PATIENT DECISION Patient refuses all immunization(s) in the TDAP group Date Documented: 03/26/24 10:50 /es/ STEVEN SCHMIDT MSN, LAUNDRY OPERATOR FINISHING, SILK SCREEN CUTTER-BC NURSE PRACTITIONER Signed: 03/26/2024 11:16 Receipt Acknowledged By: 03/29/2024 08:35 /es/ LEISA MATHIS SURGEON 03/29/2024 14:20 /es/ RETA LANDIN MSN, RN REGISTERED NURSE for ESTEFANIA WARREN 03/29/2024 ADDENDUM STATUS: COMPLETED Awaiting cardiac consultation for risk stratification for surgery. /leobardo/ LEISA MATHIS SURGEON Signed: 03/29/2024 08:40 Receipt Acknowledged By: 03/29/2024 13:19 /leobardo/ STEVEN SCHMIDT MSN, LAUNDRY OPERATOR FINISHING, SILK SCREEN CUTTER-BC NURSE PRACTITIONER [facility] Mar 29, 2024 08:35 AM ADDENDUM: LOCAL TITLE: Addendum STANDARD TITLE: ADDENDUM DATE OF NOTE: MAR 29, 2024@08:35:50 ENTRY DATE: MAR 29, 2024@08:35:51 AUTHOR: LEISA MATHIS EXP COSIGNER: URGENCY: STATUS: COMPLETED Awaiting cardiac consultation for risk stratification for surgery. /leobardo/ LEISA MATHIS SURGEON Signed: 03/29/2024 08:40 Receipt Acknowledged By: 03/29/2024 13:19 /susana SCHMIDT MSN, LAUNDRY OPERATOR FINISHING, SILK SCREEN CUTTER-BC NURSE PRACTITIONER --- Original Document --- 03/26/24 PRIMARY CARE PROVIDER ESTABLISHED VISIT STL: ESTABLISHED PATIENT [id number]: REASON FOR VISIT/CHIEF COMPLAINT:Pt here today for follow up, c/o dizziness x 1 year HPI:78 year old WHAT IS YOUR GOAL FOR TODAY? follow up SOURCE(S) OF HISTORY: Patient PAST MEDICAL HISTORY: 1) Coronary artery disease 2) Hyperlipidemia 3) Benign essential hypertension 4) Diabetic neuropathy with neurologic complication 5) Abdominal aortic aneurysm 6) Gastroesophageal reflux disease 7) Knee pain 8) Callous character 9) Colonic fistula ALLERGIES: Life Sustaining Treatment Orders ALLERGY REVIEW: Allergy list reviewed and remains current. RXAE - Active/Exp Opt Meds 1) CARBOXYMETHYLCELLULOSE NA 0.5% OPH SOLN ACTIVE INSTILL 1 DROP IN BOTH EYES FOUR TIMES A DAY NEEDED FOR DRY EYE(S) 2) CETIRIZINE HCL 10MG TAB ACTIVE TAKE ONE TABLET BY MOUTH ONCE A DAY NEEDED FOR ALLERGY SYMPTOMS 3) CHOLECALCIF 50MCG (D3-2,000UNIT) TAB ACTIVE TAKE ONE TABLET BY MOUTH ONCE A DAY FOR VITAMIN D DEFICIENCY 4) CYANOCOBALAMIN 1000MCG TAB ACTIVE TAKE ONE TABLET BY MOUTH ONCE A DAY FOR VITAMIN B12 SUPPLEMENTATION 5) CYCLOBENZAPRINE HCL 10MG TAB ACTIVE TAKE ONE TABLET BY MOUTH AT BEDTIME NEEDED FOR MUSCLE SPASM MAY CAUSE DROWSINESS. DO NOT DRINK ALCOHOL WHILE TAKING THIS MEDICATION. 6) IRBESARTAN 150MG TAB ACTIVE TAKE ONE TABLET BY MOUTH ONCE A DAY FOR HIGH BLOOD PRESSURE NOTE: DOSE DECREASE 7) ISOSORBIDE MONONITRATE 30MG SA TAB ACTIVE TAKE ONE TABLET BY MOUTH ONCE A DAY FOR CHEST PAIN TAKE ON EMPTY STOMACH. SWALLOW WHOLE. DO NOT CRUSH OR CHEW. 8) METFORMIN HCL 1000MG TAB ACTIVE TAKE ONE TABLET BY MOUTH ONCE A DAY FOR DIABETES TAKE WITH FOOD. AVOID ALCOHOL. DISCONTINUE BEFORE GETTING XRAY DYE. 9) OMEPRAZOLE 40MG EC CAP ACTIVE TAKE ONE CAPSULE BY MOUTH EVERY MORNING BEFORE A MEAL TAKE 30 MINUTES PRIOR TO FOOD. 10) ASPIRIN 81MG EC TAB TAKE ONE TABLET BY MOUTH ONCE A DAY TAKE WITH FOOD. 11) ATORVASTATIN CALCIUM 80MG TAB TAKE ONE TABLET BY MOUTH EVERY EVENING FOR HIGH CHOLESTEROL 12) BENZONATATE 100MG CAP TAKE ONE CAPSULE BY MOUTH THREE TIMES A DAY NEEDED FOR COUGH 13) BISACODYL 5MG EC TAB TAKE TWO TABLETS BY MOUTH ONE TIME TAKE BISACODYL TABLETS AT 4PM ON AFTERNOON PRIOR TO TEST. CALL [phone] WITH ANY QUESTIONS ABOUT THESE INSTRUCTIONS. MAIL 14) CHOLESTYRAMINE 4GM/5GM (LIGHT) PWD PKT MIX AND DRINK 1 PACKET BY MOUTH TWICE DAILY NEEDED FOR CHRONIC DIARRHEA MIX WITH WATER DIRECTED. TAKE OTHER MEDICATIONS 1 HOUR BEFORE OR 6 HOURS AFTER ADMINISTRATION. 15) CLOPIDOGREL BISULFATE 75MG TAB TAKE ONE TABLET BY MOUTH ONCE A DAY FOR ACUTE CORONARY SYNDROME 16) DICLOFENAC NA 1% TOP GEL APPLY 4 GM TO AFFECTED AREA(S) FOUR TIMES A DAY NEEDED FOR PAIN DO NOT EXCEED MORE THAN 16 GRAMS DAILY TO ANY LOWER EXTREMITY JOINT. NOT MORE THAN 8 GRAMS DAILY TO ANY UPPER EXTREMITY JOINT. MAX 32GM/DAY OVER ALL JOINTS. (MEASURE DOSE WITH RULER ATTACHED INSIDE BOX) 17) DONEPEZIL HCL 10MG TAB TAKE ONE TABLET BY MOUTH AT BEDTIME FOR ALZHEIMER DISEASE (JUST BEFORE BEDTIME) 18) EMPAGLIFLOZIN 25MG TAB TAKE ONE-HALF TABLET BY MOUTH ONCE A DAY 19) GABAPENTIN 100MG CAP TAKE ONE CAPSULE BY MOUTH TWICE A DAY AND TAKE THREE CAPSULES AT BEDTIME FOR NERVE PAIN 20) IRBESARTAN 300MG TAB TAKE ONE TABLET BY MOUTH ONCE A DAY FOR HIGH BLOOD PRESSURE 21) METOPROLOL SUCCINATE 100MG SA TAB TAKE ONE-HALF TABLET BY MOUTH ONCE A DAY FOR HIGH BLOOD PRESSURE SWALLOW WHOLE, DO NOT CRUSH OR CHEW (TABLETS MAY BE CUT IN HALF). 22) POLYETHYLENE GLYCOL 3350 ORAL PWDR MIX AND DRINK 2 CAPFULS BY MOUTH ONCE A DAY FOR BOWEL EMPTYING (MEASURE WITH CAP AND MIX IN 8 OZ OF WATER) 23) SIMETHICONE 80MG CHEW TAB CHEW AND SWALLOW FOUR TABLETS BY MOUTH DIRECTED FOR GAS DISCOMFORT FOR TWO DOSES BEFORE GI PROCEDURE 24) BUSPIRONE HCL 10MG TAB ACTIVE/S TAKE ONE-HALF TABLET BY MOUTH ONCE A DAY DO NOT TAKE WITH GRAPEFRUIT JUICE. 25) TAMSULOSIN HCL 0.4MG CAP ACTIVE/S TAKE TWO CAPSULES BY MOUTH EVERY EVENING FOR BENIGN PROSTATIC HYPERPLASIA APPROXIMATELY 30 MINUTES AFTER THE SAME MEAL EACH DAY 26) ACCU-CHEK GUIDE (GLUCOSE) TEST STRIP ACTIVE USE 1 STRIP FOR BLOOD TEST DIRECTED *METFORMIN ALONE, 50 STRIPS PER YEAR Aug 27) ALCOHOL PREP PAD USE/APPLY PAD TO AFFECTED AREA(S) TWO TIMES PER WEEK FOR SKIN CLEANSING 28) LANCET,SOFTCLIX USE LANCET FOR BLOOD TEST TWO TIMES PER WEEK FOR BLOOD SUGAR MONITORING USE DIRECTED. Legend: ACTIVE/S means that the RX is 'active' and suspended for mailout. MEDICATION RECONCILIATION: I have reviewed the patient's medication list with the patient and/or his/her care-processing assistant. Handwritten corrections, additions and/or deletions were made to the list. Corrected Outpatient Medication List was provided to the patient/caregiver. DATA REVIEW: SODIUM 140 mEq/L 03/01/2024 12:51 POTASSIUM 4.4 [...] 12:51 EGFR (CKD-EPI 2020) 52.2 03/01/2024 12:51 WBC 9.4 10*3/uL 03/01/2024 12:51 RBC 4.90 [...] 12:51 BASOPHILS, ABSOLUTE 0.06 10*3/uL 03/01/2024 12:51 TRIGLYCERIDE 108 mg/dL 09/24/2023 13:00 CHOLESTEROL 151 mg/dL 09/24/2023 13:00 HDL(New) 47 mg/dL 09/24/2023 13:00 CALCULATED LDL 82 mg/dL 09/24/2023 13:00 TSH 2.136 uIU/mL 09/24/2023 13:00 VITAMIN D, 25-HYDROXY 35.8 ng/mL 09/24/2023 13:00 SLT - Lab Tests Selected Collection DT Specimen Test Name Result Units Ref Range 09/24/2023 13:00 BLOOD HGA1C 6.6 H % 4.0 - 6.0 02/10/2023 13:05 BLOOD HGA1C 6.8 H % 4.0 - 6.0 No PSA EO data found HbA1c No data available for: HGA1C Result: Acceptable Follow-up Action: Data results reviewed with patient and/or caregiver. Review of Systems: General: Denies fever, chills, weight loss, weight gain ENT: Denies sore throat, nasal discharge, tinnitus, loss of hearing Eye: Denies changes in vision, double vision Cardiovascular- Denies chest pain, palpitations, dizziness Respiratory: Denies SOB, cough, hemoptysis Abd/GI: Denies nausea, vomiting, diarrhea, constipation, pain MSK/Ext: Denies joint pain, trauma, stiffness, edema /RAMP FLIGHT ATTENDANT: Denies frequency, urgency, burning, odor, discharge Hemo/lymph: Denies easy bruising, fatigue, swollen nodes Endo: Denies excess thirst, hunger, urination Psych: Denies depression, anxiety, nightmares, insomnia Neuro: Denies headaches, tremors, seizures, head injury, neuropathy Skin: Denies laceration/abrasion, rash, itching, insect bites SMOKING STATUS:non smoker VSD - Detailed Vitals Date Vital Measurement Qualifiers 03/26/2024 10:39 BP 122/68 L Arm, Sitting, Adult Cuff, Cuff-Manual 03/26/2024 10:32 Temp F (C) 97.6 (36.4) Pulse 86 Respir 18 Ht in (cm) 72 (182.88) Wt lbs (kg)[BMI] 220.2 (99.88)[30*] Pain 0 POx (L/Min)(%) 97 Physical Exam: ENT: Pharynx clear, TMs clear EYE: PERRLA Cardiovascular: RRR, no murmurs, no carotid bruits, no edema Respiratory: Lungs CTAB Abd/GI: Abdomen soft, non-tender, non-distended, no masses or guarding Extremities: adequate ROM, no edema /RAMP FLIGHT ATTENDANT: No CVA or S/P tenderness Hemo/lymph: no adenopathy, excessive bruising Endo: Thyroid without palpable nodules, no excess hair growth Psych: mood and affect appropriate Neuro: Alert and oriented, CN2-12 grossly intact Skin: Clear and intact Assessment and Plan: 1. Healthcare maintenance- labs ordered 2. HTN/Dizziness- discussed possibility of hypotensive events, pt states Dr. Coffey reduced his irbesartan to 75mg and it seems that he has less dizziness. Pt also on Buspirone which can cause dizziness. Advised pt hold the buspirone if dizziness continues after reducd dose of antihypertensive. Subha, please follow BP's. Thanks 3. DM- cont current treatment 4. Thoracic Aortic Aneurysm- Pt reports last check was 4.7, followed by Dr. Coffey. 5. GERD- pt on omeprazole, cont 6. CAD/HLD- Followed by Dr. Coffey 7. B knee pain- completed PT, now in gerofit. Cont diclofenac gel 8. Anxiety- followed by . 9. Cholelithiasis- pt believes he is going to have surgery, is awaiting scheduling. Alerting Dr. Mathis. RETURN TO CLINIC:6 months SUMMARY STATEMENT: Plan of care has been discussed with including expected therapeutic benefits and potential side effects of prescribed medication and treatments. verbalizes understanding and is in agreement with the plan of care. Patient was instructed to keep all scheduled appointments and contact chief revenue officer for any additional problems. PREVENTION & SCREENING: ALCOHOL: Clinical Reminder not due now or within a month BLOOD PRESSURE: Clinical Reminder not due now or within a month HEMOGLOBIN A1C: Clinical Reminder not due now or within a month Cystatin C with eGFR Screen: The patient has a condition that may benefit from obtaining a Cystatin C test for accurate assessment of renal function. Cystatin C w/eGFR ordered for renal assessment. RHS Screen: RHS Screen Session Format: Face to Face Environmental Check Screening was not completed at this time due to: Another adult present Influenza Immunization: Deferral / Refusal The patient declines to receive the recommended dose of seasonal influenza vaccine. Immunization: INFLUENZA, UNSPECIFIED FORMULATION Refusal Reason: PATIENT DECISION Patient refuses all immunization(s) in the FLU group Date Documented: 03/26/24 10:49 HIV Screening (Routine): Patient has been offered HIV testing and has declined. I have explained that HIV testing is recommended for all adults, even if all risk factors are absent. PAVE Foot Check: Patient declined limb care exam. The patient was advised the [place] mandates all patients with diabetes mellitus, end stage renal disease, peripheral vascular disease, or sensory neuropathy should have a complete foot check completed annually. This includes a visual exam of the skin, pedal pulses and a sensory exam. Patients with any abnormality noted during the foot check should be referred to a specialist. [facility] MAP: PERSONAL HEALTH PLAN Pneumococcal Conjugate Vaccine (PCV15/PCV20): Refuses PCV vaccine Immunization: PNEUMOCOCCAL CONJUGATE, UNSPECIFIED FORMULATION Refusal Reason: PATIENT DECISION Patient refuses all immunization(s) in the PneumoPCV group Date Documented: 03/26/24 10:49 Prior Approval/Non-formulary Drug: MEDICATION USE EVALUATION Tdap Immunization: The patient declines to receive the recommended dose of Tdap vaccine. Immunization: TDAP Refusal Reason: PATIENT DECISION Patient refuses all immunization(s) in the TDAP group Date Documented: 03/26/24 10:50 /susana SCHMIDT MSN, LAUNDRY OPERATOR FINISHING, SILK SCREEN CUTTER- NURSE PRACTITIONER Signed: 03/26/2024 11:16 Receipt Acknowledged By: 03/29/2024 08:35 /leobardo/ LEISA MATHIS SURGEON * AWAITING SIGNATURE * ESTEFANIA WARREN TRANG [facility] Mar 26, 2024 10:43 AM PRIMARY CARE NOTE: LOCAL TITLE: PRIMARY CARE PROVIDER ESTABLISHED VISIT [facility] STANDARD TITLE: PRIMARY CARE NOTE DATE OF NOTE: MAR 26, 2024@10:43 ENTRY DATE: MAR 26, 2024@10:43:26 AUTHOR: STVEEN SCHMIDT EXP COSIGNER: URGENCY: STATUS: COMPLETED PRIMARY CARE PROVIDER ESTABLISHED VISIT [facility] Has ADDENDA ESTABLISHED PATIENT [id number]: REASON FOR VISIT/CHIEF COMPLAINT:Pt here today for follow up, c/o dizziness x 1 year HPI:78 year old WM WHAT IS YOUR GOAL FOR TODAY? follow up SOURCE(S) OF HISTORY: Patient PAST MEDICAL HISTORY: 1) Coronary artery disease 2) Hyperlipidemia 3) Benign essential hypertension 4) Diabetic neuropathy with neurologic complication 5) Abdominal aortic aneurysm 6) Gastroesophageal reflux disease 7) Knee pain 8) Callous character 9) Colonic fistula ALLERGIES: Life Sustaining Treatment Orders ALLERGY REVIEW: Allergy list reviewed and remains current. RXAE - Active/Exp Opt Meds 1) CARBOXYMETHYLCELLULOSE NA 0.5% OPH SOLN ACTIVE INSTILL 1 DROP IN BOTH EYES FOUR TIMES A DAY NEEDED FOR DRY EYE(S) 2) CETIRIZINE HCL 10MG TAB ACTIVE TAKE ONE TABLET BY MOUTH ONCE A DAY NEEDED FOR ALLERGY SYMPTOMS 3) CHOLECALCIF 50MCG (D3-2,000UNIT) TAB ACTIVE TAKE ONE TABLET BY MOUTH ONCE A DAY FOR VITAMIN D DEFICIENCY 4) CYANOCOBALAMIN 1000MCG TAB ACTIVE TAKE ONE TABLET BY MOUTH ONCE A DAY FOR VITAMIN B12 SUPPLEMENTATION 5) CYCLOBENZAPRINE HCL 10MG TAB ACTIVE TAKE ONE TABLET BY MOUTH AT BEDTIME NEEDED FOR MUSCLE SPASM MAY CAUSE DROWSINESS. DO NOT DRINK ALCOHOL WHILE TAKING THIS MEDICATION. 6) IRBESARTAN 150MG TAB ACTIVE TAKE ONE TABLET BY MOUTH ONCE A DAY FOR HIGH BLOOD PRESSURE NOTE: DOSE DECREASE 7) ISOSORBIDE MONONITRATE 30MG SA TAB ACTIVE TAKE ONE TABLET BY MOUTH ONCE A DAY FOR CHEST PAIN TAKE ON EMPTY STOMACH. SWALLOW WHOLE. DO NOT CRUSH OR CHEW. 8) METFORMIN HCL 1000MG TAB ACTIVE TAKE ONE TABLET BY MOUTH ONCE A DAY FOR DIABETES TAKE WITH FOOD. AVOID ALCOHOL. DISCONTINUE BEFORE GETTING XRAY DYE. 9) OMEPRAZOLE 40MG EC CAP ACTIVE TAKE ONE CAPSULE BY MOUTH EVERY MORNING BEFORE A MEAL TAKE 30 MINUTES PRIOR TO FOOD. 10) ASPIRIN 81MG EC TAB TAKE ONE TABLET BY MOUTH ONCE A DAY TAKE WITH FOOD. 11) ATORVASTATIN CALCIUM 80MG TAB TAKE ONE TABLET BY MOUTH EVERY EVENING FOR HIGH CHOLESTEROL 12) BENZONATATE 100MG CAP TAKE ONE CAPSULE BY MOUTH THREE TIMES A DAY NEEDED FOR COUGH 13) BISACODYL 5MG EC TAB TAKE TWO TABLETS BY MOUTH ONE TIME TAKE BISACODYL TABLETS AT 4PM ON AFTERNOON PRIOR TO TEST. CALL [phone] WITH ANY QUESTIONS ABOUT THESE INSTRUCTIONS. MAIL 14) CHOLESTYRAMINE 4GM/5GM (LIGHT) PWD PKT MIX AND DRINK 1 PACKET BY MOUTH TWICE DAILY NEEDED FOR CHRONIC DIARRHEA MIX WITH WATER DIRECTED. TAKE OTHER MEDICATIONS 1 HOUR BEFORE OR 6 HOURS AFTER ADMINISTRATION. 15) CLOPIDOGREL BISULFATE 75MG TAB TAKE ONE TABLET BY MOUTH ONCE A DAY FOR ACUTE CORONARY SYNDROME 16) DICLOFENAC NA 1% TOP GEL APPLY 4 GM TO AFFECTED AREA(S) FOUR TIMES A DAY NEEDED FOR PAIN DO NOT EXCEED MORE THAN 16 GRAMS DAILY TO ANY LOWER EXTREMITY JOINT. NOT MORE THAN 8 GRAMS DAILY TO ANY UPPER EXTREMITY JOINT. MAX 32GM/DAY OVER ALL JOINTS. (MEASURE DOSE WITH RULER ATTACHED INSIDE BOX) 17) DONEPEZIL HCL 10MG TAB TAKE ONE TABLET BY MOUTH AT BEDTIME FOR ALZHEIMER DISEASE (JUST BEFORE BEDTIME) 18) EMPAGLIFLOZIN 25MG TAB TAKE ONE-HALF TABLET BY MOUTH ONCE A DAY 19) GABAPENTIN 100MG CAP TAKE ONE CAPSULE BY MOUTH TWICE A DAY AND TAKE THREE CAPSULES AT BEDTIME FOR NERVE PAIN 20) IRBESARTAN 300MG TAB TAKE ONE TABLET BY MOUTH ONCE A DAY FOR HIGH BLOOD PRESSURE 21) METOPROLOL SUCCINATE 100MG SA TAB TAKE ONE-HALF TABLET BY MOUTH ONCE A DAY FOR HIGH BLOOD PRESSURE SWALLOW WHOLE, DO NOT CRUSH OR CHEW (TABLETS MAY BE CUT IN HALF). 22) POLYETHYLENE GLYCOL 3350 ORAL PWDR MIX AND DRINK 2 CAPFULS BY MOUTH ONCE A DAY FOR BOWEL EMPTYING (MEASURE WITH CAP AND MIX IN 8 OZ OF WATER) 23) SIMETHICONE 80MG CHEW TAB CHEW AND SWALLOW FOUR TABLETS BY MOUTH DIRECTED FOR GAS DISCOMFORT FOR TWO DOSES BEFORE GI PROCEDURE 24) BUSPIRONE HCL 10MG TAB ACTIVE/S TAKE ONE-HALF TABLET BY MOUTH ONCE A DAY DO NOT TAKE WITH GRAPEFRUIT JUICE. 25) TAMSULOSIN HCL 0.4MG CAP ACTIVE/S TAKE TWO CAPSULES BY MOUTH EVERY EVENING FOR BENIGN PROSTATIC HYPERPLASIA APPROXIMATELY 30 MINUTES AFTER THE SAME MEAL EACH DAY 26) ACCU-CHEK GUIDE (GLUCOSE) TEST STRIP ACTIVE USE 1 STRIP FOR BLOOD TEST DIRECTED *METFORMIN ALONE, 50 STRIPS PER YEAR Aug 27) ALCOHOL PREP PAD USE/APPLY PAD TO AFFECTED AREA(S) TWO TIMES PER WEEK FOR SKIN CLEANSING 28) LANCET,SOFTCLIX USE LANCET FOR BLOOD TEST TWO TIMES PER WEEK FOR BLOOD SUGAR MONITORING USE DIRECTED. Legend: ACTIVE/S means that the RX is 'active' and suspended for mailout. MEDICATION RECONCILIATION: I have reviewed the patient's medication list with the patient and/or his/her care-processing assistant. Handwritten corrections, additions and/or deletions were made to the list. Corrected Outpatient Medication List was provided to the patient/caregiver. DATA REVIEW: SODIUM 140 mEq/L 03/01/2024 12:51 POTASSIUM 4.4 [...] 12:51 EGFR (CKD-EPI 2020) 52.2 03/01/2024 12:51 WBC 9.4 10*3/uL 03/01/2024 12:51 RBC 4.90 [...] 12:51 BASOPHILS, ABSOLUTE 0.06 10*3/uL 03/01/2024 12:51 TRIGLYCERIDE 108 mg/dL 09/24/2023 13:00 CHOLESTEROL 151 mg/dL 09/24/2023 13:00 HDL(New) 47 mg/dL 09/24/2023 13:00 CALCULATED LDL 82 mg/dL 09/24/2023 13:00 TSH 2.136 uIU/mL 09/24/2023 13:00 VITAMIN D, 25-HYDROXY 35.8 ng/mL 09/24/2023 13:00 SLT - Lab Tests Selected Collection DT Specimen Test Name Result Units Ref Range 09/24/2023 13:00 BLOOD HGA1C 6.6 H % 4.0 - 6.0 02/10/2023 13:05 BLOOD HGA1C 6.8 H % 4.0 - 6.0 No PSA EO data found HbA1c No data available for: HGA1C Result: Acceptable Follow-up Action: Data results reviewed with patient and/or caregiver. Review of Systems: General: Denies fever, chills, weight loss, weight gain ENT: Denies sore throat, nasal discharge, tinnitus, loss of hearing Eye: Denies changes in vision, double vision Cardiovascular- Denies chest pain, palpitations, dizziness Respiratory: Denies SOB, cough, hemoptysis Abd/GI: Denies nausea, vomiting, diarrhea, constipation, pain MSK/Ext: Denies joint pain, trauma, stiffness, edema /RAMP FLIGHT ATTENDANT: Denies frequency, urgency, burning, odor, discharge Hemo/lymph: Denies easy bruising, fatigue, swollen nodes Endo: Denies excess thirst, hunger, urination Psych: Denies depression, anxiety, nightmares, insomnia Neuro: Denies headaches, tremors, seizures, head injury, neuropathy Skin: Denies laceration/abrasion, rash, itching, insect bites SMOKING STATUS:non smoker VSD - Detailed Vitals Date Vital Measurement Qualifiers 03/26/2024 10:39 BP 122/68 L Arm, Sitting, Adult Cuff, Cuff-Manual 03/26/2024 10:32 Temp F (C) 97.6 (36.4) Pulse 86 Respir 18 Ht in (cm) 72 (182.88) Wt lbs (kg)[BMI] 220.2 (99.88)[30*] Pain 0 POx (L/Min)(%) 97 Physical Exam: ENT: Pharynx clear, TMs clear EYE: PERRLA Cardiovascular: RRR, no murmurs, no carotid bruits, no edema Respiratory: Lungs CTAB Abd/GI: Abdomen soft, non-tender, non-distended, no masses or guarding Extremities: adequate ROM, no edema /RAMP FLIGHT ATTENDANT: No CVA or S/P tenderness Hemo/lymph: no adenopathy, excessive bruising Endo: Thyroid without palpable nodules, no excess hair growth Psych: mood and affect appropriate Neuro: Alert and oriented, CN2-12 grossly intact Skin: Clear and intact Assessment and Plan: 1. Healthcare maintenance- labs ordered 2. HTN/Dizziness- discussed possibility of hypotensive events, pt states Dr. Coffey reduced his irbesartan to 75mg and it seems that he has less dizziness. Pt also on Buspirone which can cause dizziness. Advised pt hold the buspirone if dizziness continues after reducd dose of antihypertensive. Subha, please follow BP's. Thanks 3. DM- cont current treatment 4. Thoracic Aortic Aneurysm- Pt reports last check was 4.7, followed by Dr. Coffey. 5. GERD- pt on omeprazole, cont 6. CAD/HLD- Followed by Dr. Coffey 7. B knee pain- completed PT, now in gerofit. Cont diclofenac gel 8. Anxiety- followed by . 9. Cholelithiasis- pt believes he is going to have surgery, is awaiting scheduling. Alerting Dr. Mathis. RETURN TO CLINIC:6 months SUMMARY STATEMENT: Plan of care has been discussed with including expected therapeutic benefits and potential side effects of prescribed medication and treatments. verbalizes understanding and is in agreement with the plan of care. Patient was instructed to keep all scheduled appointments and contact chief revenue officer for any additional problems. PREVENTION & SCREENING: ALCOHOL: Clinical Reminder not due now or within a month BLOOD PRESSURE: Clinical Reminder not due now or within a month HEMOGLOBIN A1C: Clinical Reminder not due now or within a month Cystatin C with eGFR Screen: The patient has a condition that may benefit from obtaining a Cystatin C test for accurate assessment of renal function. Cystatin C w/eGFR ordered for renal assessment. RHS Screen: RHS Screen Session Format: Face to Face Environmental Check Screening was not completed at this time due to: Another adult present Influenza Immunization: Deferral / Refusal The patient declines to receive the recommended dose of seasonal influenza vaccine. Immunization: INFLUENZA, UNSPECIFIED FORMULATION Refusal Reason: PATIENT DECISION Patient refuses all immunization(s) in the FLU group Date Documented: 03/26/24 10:49 HIV Screening (Routine): Patient has been offered HIV testing and has declined. I have explained that HIV testing is recommended for all adults, even if all risk factors are absent. PAVE Foot Check: Patient declined limb care exam. The patient was advised the [place] mandates all patients with diabetes mellitus, end stage renal disease, peripheral vascular disease, or sensory neuropathy should have a complete foot check completed annually. This includes a visual exam of the skin, pedal pulses and a sensory exam. Patients with any abnormality noted during the foot check should be referred to a specialist. [facility] MAP: PERSONAL HEALTH PLAN Pneumococcal Conjugate Vaccine (PCV15/PCV20): Refuses PCV vaccine Immunization: PNEUMOCOCCAL CONJUGATE, UNSPECIFIED FORMULATION Refusal Reason: PATIENT DECISION Patient refuses all immunization(s) in the PneumoPCV group Date Documented: 03/26/24 10:49 Prior Approval/Non-formulary Drug: MEDICATION USE EVALUATION Tdap Immunization: The patient declines to receive the recommended dose of Tdap vaccine. Immunization: TDAP Refusal Reason: PATIENT DECISION Patient refuses all immunization(s) in the TDAP group Date Documented: 03/26/24 10:50 /es/ STEVEN SCHMIDT MSN, LAUNDRY OPERATOR FINISHING, SILK SCREEN CUTTER-BC NURSE PRACTITIONER Signed: 03/26/2024 11:16 Receipt Acknowledged By: 03/29/2024 08:35 /leobardo/ LEISA MATHIS SURGEON 03/29/2024 14:20 /leobardo/ RETA LANDIN, MSN, RN REGISTERED NURSE for ESTEFANIA BRIANA 03/29/2024 ADDENDUM STATUS: COMPLETED Awaiting cardiac consultation for risk stratification for surgery. /es/ LEISA MATHIS SURGEON Signed: 03/29/2024 08:40 Receipt Acknowledged By: 03/29/2024 13:19 /leobardo/ STEVEN SCHMIDT MSN, LAUNDRY OPERATOR FINISHING, SILK SCREEN [facility] NURSE PRACTITIONER 03/29/2024 ADDENDUM STATUS: COMPLETED RNCM placed call to pt. Patient identified by full name and . RNCM informed pt that EFRAIN Briana will contact pt next week to schedule b/p f/u and asked pt to record b/p readings for f/u with EFRAIN Warren. Pt endorses he also has been capturing his blood sugar as he is concerned with this causing his dizziness. pt reports that smbg was over 200 today and was over 200 on 03/27/24. RNCM reviewed hypoglycemia/hyperglycemia precautions with pt and signs/symptoms to seek care now and hypotension/hypertension precautions. Pt agreeable to have f/u with EFRAIN Warren with SMBG and blood pressure. Patient verbalized good understanding and agreeable to plan. Patient denied additional questions or concerns at this time. alerting SKETCH ARTIST Samples of blood sugar, as well. /leobardo/ KAL DELA CRUZ, RN REGISTERED NURSE Signed: 03/29/2024 14:24 Receipt Acknowledged By: 03/29/2024 14:28 /leobardo/ STEVEN SCHMIDT MSN, LAUNDRY OPERATOR FINISHING, [facility] NURSE PRACTITIONER SAMPLES,STEVEN DOUGLAS CB Mar 26, 2024 10:33 AM NURSING NOTE: LOCAL TITLE: V15 PACT FACE TO FACE NOTE ST[facility] STANDARD TITLE: NURSING NOTE DATE OF NOTE: MAR 26, 2024@10:33 ENTRY DATE: MAR 26, 2024@10:33:25 AUTHOR: ZEINAB MARISCAL COSIGNER: URGENCY: STATUS: COMPLETED Provider Visit: Patient Identifiers : Full Name Date of Reason for visit: Established Follow-Up Mode of Arrival: Ambulatory Allergy Review: Patient has answered NKA Allergy list reviewed and remains current. Recent Vital Signs: Temperature: 97.6 F [36.4 C] (03/26/2024 10:32) Pulse: 86 (03/26/2024 10:32) Respiration: 18 (03/26/2024 10:32) B/P: 167/76 (03/26/2024 10:32) Pain: 0 (03/26/2024 10:32) Wt: 220.2 lb [99.88 kg] (03/26/2024 10:32) Ht: 72 in [182.9 cm] (03/26/2024 10:32) BMI: 29.9 POX: 97% (03/26/2024 10:32) Repeat manual blood pressure: 122/68 Would you like to discuss any personal problem, family problem, alcohol use, drug use, or a mental or emotional illness? No Contact provided Primary Care phone number and encouraged to call if any questions or concerns. Review that after hours nurse line [phone] and emergency room are available 13/01 for patient use. Contact verbalized good understanding. COVID-19 Immunization: Refused Pfizer Monovalent COVID-19 vaccine Immunization: COVID-19 (PFIZER), MRNA, LNP-S, PF, BEKAH-SUCROSE, 30 MCG/0.3 ML (AGES 12+ YEARS) Refusal Reason: PATIENT DECISION Patient refuses all immunization(s) in the COVID-19 group Date Documented: 03/26/24 10:34 Frail/Elderly Screen: ADL Screen - Jones Index of [place] in Activities of Daily Living Bathing: (3 Points) Receives no assistance (gets in and out of tub by self, if tub is usual means of bathing) Dressing: (3 Points) Gets clothes and gets completely dressed without assistance. Toileting: (3 Points) Goes to toilet room, cleans self, and arranges clothes without assistance (may use object for support such as cane, walker, or wheelchair, and may manage own night bedpan or commode, emptying same next morning) Transferring: (3 Points) Moves in and out of bed and in and out of chair without assistance (may be using object for support, such as cane or walker) Continence: (3 Points) Controls urination and bowel movement completely by self Feeding: (3 Points) Feeds self without assistance Total Score: 18 Points 18 = High (patient independent) 6 = Low (patient very dependent) IADL Screen - Neal Instrumental Activities of Daily Living Scale Ability to use telephone: (1 point) Operates Telephone on own initiative; looks up and dials numbers. Shopping: (1 point) Takes care of all shopping needs independently. Food preparation: (1 point) Plans, prepares, and serves adequate meals independently. Housekeeping: (1 point) Maintains house alone with occasional assistance (heavy work). Laundry: (1 point) Does personal laundry completely. Mode of transportation: (1 point) Travels independently on public transportation or drives own car. Responsibility for own medications: (1 point) Is responsible for taking medications in correct dosages at correct times. Ability to handle finances: (1 point) Manages financial matters independently (budgets, writes checks, pays rent and bills, goes to bank); collects and keeps track of income. Total score: 8 points 8 = High function, independent 0 = Low function, dependent Falls Screen: Two or more falls within the last 12 months. Incontinence Screen: No incontinence. Tobacco Use Screening: The patient has never used tobacco. /leobardo/ ZEINAB MARISCAL LPN LICENSED PRACTICAL NURSE Signed: 03/26/2024 10:39 ZEINAB MARISCAL [facility]
--- OUTSIDE RECORDS SUMMARY | 2025-01-21 13:02 | XMS_ITS | Encounter Summary ---
Author Name [facility] Organization [facility] [place] Address [address] [place] [address] Care Team Providers Care Type Bar And Segment Assembler Name Role Phone KARON GARCIA Primary [...] B EXC) MAXIMO PALMA Jul 22, 2023 [id number] [phone] GABBIRUSSELL PATIENT [employer]ETNA PREFERRED PROVIDER ORGANIZAT ION (PPO) MAXIMO PALMA Apr 22, 2023 [id number] [phone] RUSSELL SEO PATIENT [employer]NA PREFERRED PROVIDER ORGANIZAT ION (PPO) MAXIMO PALMA Jun 23, 2014 [id number] [phone] GABBI,RUSSELL MARTEL PATIENT AETNA PHARMACY PRESCRIPT ION NONE Feb 11, 2017 NONE [id number] [phone] RUSSELL SEO PATIENT AETNA PHARMACY PRESCRIPT ION NONE Feb 11, 2017 NONE [id number] RUSSELL SEO PATIENT AETNA RX PRESCRIPT ION RX PLAN Jun 23, 2021 [id number] RUSSELL SEO PATIENT AETNA RX PRESCRIPT ION RX PLAN Jun 23, 2021 [id number] RUSSELL SEO PATIENT AETNA RX PRESCRIPT ION FEHBP Jun 23, 2014 [id number] RUSESLL SEO PATIENT [facility]NA [facility] PREFERRED PROVIDER ORGANIZAT ION (PPO) MAXIMO PALMA Jun 23, 2014 [id number] RUSSELL SEO PATIENT MEDICARE (WNR) MEDICARE (M) PART B May 23, 2008 PART B [id number] RUSSELL SEO PATIENT MEDICARE (WNR) MEDICARE (M) PART B May 23, 2008 PART B [id number] RUSSELL SEOD PATIENT MEDICARE (WNR) MEDICARE (M) PART A Apr 23, 2008 PART A [id number] RUSSELL SEO PATIENT MEDICARE (WNR) MEDICARE (M) PART A Apr 23, 2008 PART A [id number] RUSSELL SEO PATIENT MEDICARE (WNR) MEDICARE (M) PART A Apr 23, 2008 PART A [id number] RUSSELL SEO PATIENT MEDICARE (WNR) MEDICARE (M) PART B Apr 23, 2008 PART B [id number] [phone] RUSSELL SEO PATIENT Selected Encounter This section includes the information on record at [place] for the Encounter. Date/Time Encounter Type Encounter Description Reason Provider Source Oct 04, 2024 07:41 AM Outpatient Encounter COMMUNITY CARE CONSULT DAVID BRIDGES Encounter Template Text not used by VA [...] 01:30 PM AMBULATORY - SURGERY [facility] Dec 07, 2024 11:00 AM AMBULATORY - MEDICINE [facility] Dec 27, 2024 10:30 AM AMBULATORY - MEDICINE [facility] Jan 07, 2025 08:00 AM AMBULATORY - NONE . [facility] Feb 17, 2025 01:00 PM AMBULATORY - SURGERY [facility] Mar 24, 2025 02:30 PM AMBULATORY - MEDICINE [facility] Lab Results: +/- 30 days [...] Type Comment Sep 22, 2024 11:30 AM [facility] MAGNESIUM PLASMA Specimen Type: PLASMA Comment: No hemolysis noted. Ordering Provider: STEVEN SCHMIDT Report Released Date/Time: Sep 20, 2024 04:29 PM Reporting Lab: [facility] [address] [facility] [address] Performing Lab: [facility] [address] [facility] [address] MAGNESIUM 1.7 mg/dL 1.6-2.6 Sep 22, 2024 11:30 AM [facility] LIPID PANEL (STL) PLASMA Specimen Type : PLASMA Comment: No hemolysis noted. Ordering Provider: STEVEN SCHMIDT Report Released Date/Time: Sep 20, 2024 04:29 PM Reporting Lab: [facility] [address] [facility] [address] Performing Lab: [facility] [address] [facility] [address] CHOLESTEROL 185 mg/dL 0-200 TRIGLYCERIDE 171 mg/dL H 0-150 CALCULATED LDL 115 mg/dL HDL(New) 36 mg/dL L >40 Sep 22, 2024 11:30 AM [facility] HGA1C BLOOD Specimen Type: BLOOD No comment entered. Ordering Provider: STEVEN SCHMIDT Report Released Date/Time: Sep 20, 2024 04:29 PM Reporting Lab: [facility] [address] [facility] [address] Performing Lab: [place] [address] [facility] [address] HGA1C 7.4 H 4.0-6.0 Sep 22, 2024 11:30 AM [facility] COMPREHENSIVE METABOLIC PANEL PLASMA S pecimen Type: PLASMA Comment: No hemolysis noted. Ordering Provider: STEVEN SCHMIDT Report Released Date/Time: Sep 20, 2024 04:29 PM Reporting Lab: [place] [address] [facility] [address] Performing Lab: [place] [address] [facility] [address] CREATININE 1.01 mg/dL 0.7-1.3 UREA NITROGEN 15.7 [...] 74.7 >60 Sep 22, 2024 11:30 AM [facility] TSH W/ REFLEX FT4 (STL) PLASMA Specime n Type: PLASMA No comment entered. Ordering Provider: STEVEN SCHMIDT Report Released Date/Time: Sep 20, 2024 04:29 PM Reporting Lab: [place] [address] [facility] [address] Performing Lab: [address] [address] TSH 2.029 u[IU]/mL 0.47-5 Sep 22, 2024 11:30 AM [facility] B12 SERUM Specimen Type: SERUM No comment entered. Ordering Provider: STEVEN SCHMIDT Report Released Date/Time: Sep 20, 2024 04:29 PM Reporting Lab: [address] [address] Performing Lab: [address] [address] B12 548 pg/mL 213-816 Sep 22, 2024 11:30 AM [facility] CBC BLOOD Specimen Type: BLOOD No comment entered. Ordering Provider: STEVEN SCHMIDT Report Released Date/Time: Sep 20, 2024 04:29 PM Reporting Lab: [address] [address] Performing Lab: [address] [address] WBC 5.0 10*3/uL 3.6-11.2 RBC 4.54 10*6/uL [...] 0.00-0. 20 Sep 22, 2024 11:30 AM [facility] VITAMIN D, 25-HYDROXY SERUM Specimen Type: SERUM No comment entered. Ordering Provider: STEVEN SCHMIDT Report Released Date/Time: Sep 20, 2024 04:29 PM Reporting Lab: [address] [address] Performing Lab: [address] [address] VITAMIN D, 25-HYDROXY 23.7 ng/mL L 30-96 Sep 22, 2024 11:30 AM [facility] MICRAL/CREAT PROFILE (STL) URINE Spec imen Type: URINE No comment entered. Ordering Provider: STEVEN SCHMIDT Report Released Date/Time: Sep 20, 2024 04:29 PM Reporting Lab: [address] [address] Performing Lab: [address] [address] URINE ALBUMIN (PB-STL) 7.6 mg/L uACR (STL) [...] 10:22 AM KNEE,RIGHT 3 VIEWS: LORETO SEO [id number] -1945 M Exm Date: SEP 28, 2024@10:22 Req Phys: STEVEN SCHMIDT Loc: RICHARD-WASH PACT 3 PCP (Req'g Loc) Img Loc: [facility] SUITE Service: Unknown [address] [address] (Case [id number] COMPLETE) KNEE,RIGHT 3 VIEWS (RAD Detailed) CPT:53141 Proc Modifiers : RIGHT, LATERAL, Stand AP, [place] Reason for Study: B knee pain Clinical History: Report Status: Verified Date Reported: SEP 29, 2024 Date Verified: SEP 29, 2024 Cylinder Head Assembler E-Sig:/ES/ROBERTO RAWLS MD Report: 3 views COMPARISON: None No acute fracture or dislocation 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 Other: Popcorn like calcification in the central distal femur typical of enchondroma. Probable intra-articular loose bodies Impression: Tricompartmental osteoarthritis Primary Interpreting Staff: ROBERTO RAWLS MD, Radiologist (Cylinder Head Assembler) /ROBERTO RAIN [facility] Sep 28, 2024 10:22 AM KNEE,LEFT, 3 VIEWS: LORETO SEO [id number] -1945 M Exm Date: SEP 28, 2024@10:22 Req Phys: STEVEN SCHMIDT Loc: -WASH PACT 3 PCP (Req'g Loc) Img Loc: [facility] SUITE Service: Unknown [address] [address] (Case [id number] COMPLETE) KNEE,LEFT, 3 VIEWS (RAD Detailed) CPT:51887 Proc Modifiers : LEFT, LATERAL, Stand AP, [place] Reason for Study: B knee pain Clinical History: Report Status: Verified Date Reported: SEP 29, 2024 Date Verified: SEP 29, 2024 Cylinder Head Assembler E-Sig:/ES/ROBERTO RAWLS MD Report: 3 views COMPARISON: None No acute fracture or dislocation 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 Other: Large intra-articular loose bodies Impression: Tricompartmental osteoarthritis Primary Interpreting Staff: ROBERTO RAWLS MD, Radiologist (Cylinder Head Assembler) /ROBERTO RAIN [facility] Encounter Notes: All associated encounter notes This section contains the clinical notes associated to the Encounter. Date/Time Encounter Note(s) Provider Source Oct 04, 2024 07:41 AM NONVA NOTE: LOCAL TITLE: COMMUNITY CARE-CARE COORDINATION PLAN NOTE [address] [place] [address] STANDARD TITLE: NONVA NOTE DATE OF NOTE: OCT 04, 2024@07:41 ENTRY DATE: OCT 04, 2024@07:41:49 AUTHOR: DAVID BRIDGES EXP COSIGNER: URGENCY: STATUS: COMPLETED COMMUNITY CARE-CARE COORDINATION PLAN NOTE [address] [facility] Has ADDENDA Community Care Consult: ortho general Consult No: [id number] HSRM Referral #: Chief Complaint: bilateral knee pain Patient Admitted? No Level of Care Coordination Moderate Care Coordination was determined from: Chart Review, Phone call to /Family/Caregiver Facility Community Care Office Contact Care Coordination Point of Contact: david yanez rn Phone Number: [phone] Services: Basic Care Coordination Services Monitoring and coordination of Rehab/PT Services Direct communication to referring provider Care management, if appropriate Plan: evaluation and treatment Fax authorization to provider. Follow up with provider for scheduling update. Follow up with after appointment. Obtain visit notes. Assess if any other care is needed. contact at least quarterly with . Coordinate care between and community provider /es/ DAVID BRIDGES RN MSN REGISTERED NURSE Signed: 10/04/2024 07:46 10/04/2024 ADDENDUM STATUS: COMPLETED CONTACT Home contacted on Sep to discuss A MHV sent to informing of consult approval. Informed cc provider will contact for scheduling, not to make copayments, and authorization is valid for 180 days from first appointment. [facility] contact information provided. VA authorization number provided. Will follow for scheduling/plan of care/clinical notes/additional needs Action Needed? Yes f/u post appts and at least quarterly for any cc needs /leobardo/ DAVID BRIDGES RN MSN REGISTERED NURSE Signed: 10/04/2024 07:47 DAVID BRIDGES [facility]
--- OUTSIDE RECORDS SUMMARY | 2025-01-21 13:02 | XMS_ITS | Encounter Summary ---
Author Name [facility] [place] Organization [facility] [facility] [place] Address [address] [place] [address] Care Team Providers Care Warehouse Trainer Name Role Phone KARON GARCIA Primary Care [...] B EXC) MAXIMO PALMA Jul 22, 2023 [id number] [phone] GABBI,GE DELONTE PATIENT [employer]ETNA PREFERRED PROVIDER ORGANIZAT ION (PPO) MAXIMO PALMA Apr 22, 2023 [id number] [phone] GABBIRUSSELL RUSHTrudy PATIENT [employer]ETNA PREFERRED PROVIDER ORGANIZAT ION (PPO) MAXIMO PALMA Jun 23, 2014 [id number] [phone] RUSSELL SEOTrudy PATIENT AETNA PHARMACY PRESCRIPT ION NONE Feb 11, 2017 NONE [id number] [phone] RUSSELL SEO PATIENT AETNA PHARMACY PRESCRIPT ION NONE Feb 11, 2017 NONE [id number] [phone] RUSSELL SEO PATIENT AETNA RX PRESCRIPT ION RX PLAN Jun 23, 2021 [id number] RUSSELL SEO PATIENT AETNA RX PRESCRIPT ION RX PLAN Jun 23, 2021 [id number] RUSSELL SEO PATIENT AETNA RX PRESCRIPT ION FEHBP Jun 23, 2014 [id number] RUSSELL SEO PATIENT AETNA [facility] PREFERRED PROVIDER ORGANIZAT ION (PPO) MAXIMO PALMA Jun 23, 2014 [id number] RUSSELL SEO PATIENT MEDICARE (WNR) MEDICARE () PART B May 23, 2008 PART B [id number] RUSSELL SEO PATIENT MEDICARE (WNR) MEDICARE () PART B May 23, 2008 PART B [id number] [phone] RUSSELL SEOD PATIENT MEDICARE (WNR) MEDICARE () PART A Apr 23, 2008 PART A [id number] [phone] RUSSELL SEO PATIENT MEDICARE (WNR) MEDICARE () PART A Apr 23, 2008 PART A [id number] RUSSELL SEOD PATIENT MEDICARE (WNR) MEDICARE () PART A Apr 23, 2008 PART A [id number] [phone] RUSSELL SEOD PATIENT MEDICARE (WNR) MEDICARE () PART B Apr 23, 2008 PART B [id number] RUSSELL SEO PATIENT Selected Encounter This section includes the information on record at [place] for the Encounter. Date/Time Encounter Type Encounter Description Reason Provider Source Sep 30, 2024 10:30 AM PT EDUCATION NOC [facility] ICD-10-CM Z72.3 Lack of physical exercise QUINLISK,JENELLE L IHE Encounter Template Text not used by VA Assessments - Encounter Diagnoses This section includes the primary and secondary diagnoses documented for the Encounter. Date/Time Primary/Secondary Diagnosis Diagnosis Name Provider Source Sep 30, 2024 12:01 PM PRIMARY Lack of physical exercise [facility] Plan of Treatment: Future Appointments (+ 6 months) and Future Tests (+/- 45 days) The Plan of Treatment section includes future care activities for the patient from all [place] treatmentfacilities. This section includes future appointments and [...] 2024 01:30 PM AMBULATORY - SURGERY . [facility] Dec 07, 2024 11:00 AM AMBULATORY - MEDICINE [facility] Dec 27, 2024 10:30 AM AMBULATORY - MEDICINE [facility] Jan 07, 2025 08:00 AM AMBULATORY - NONE [facility] Feb 17, 2025 01:00 PM AMBULATORY - SURGERY [facility] Mar 24, 2025 02:30 PM AMBULATORY - MEDICINE [facility] Lab Results: +/- 30 days of the encounter This section includes the Chemistry and Hematology Lab Results on record with [place] for the patient. Radiology Reports and Pathology Reports are provided separately, in subsequent sections. Lab Results This section contains the Chemistry/Hematology Results that were resulted 30 days before or 30 daysafter the date of the Encounter. Date/Time Source Result Type Result - Unit Interpretation Reference Range Specimen Type Comment Sep 22, 2024 11:30 AM [facility] MAGNESIUM PLASMA Specimen Type: PLASMA Comment: No hemolysis noted. Ordering Provider: STEVEN SCHMIDT Report Released Date/Time: Sep 20, 2024 04:29 PM Reporting Lab: [facility] [address] [facility] [address] Performing Lab: [facility] [address] [facility] [address] MAGNESIUM 1.7 mg/dL 1.6-2.6 Sep 22, 2024 11:30 AM [facility] LIPID PANEL (STL) PLASMA Specimen Type : PLASMA Comment: No hemolysis noted. Ordering Provider: STEVEN SCHMIDT Report Released Date/Time: Sep 20, 2024 04:29 PM Reporting Lab: [facility] [address] [place] [address] Performing Lab: [address] [address] CHOLESTEROL 185 mg/dL 0-200 TRIGLYCERIDE 171 mg/dL H 0-150 CALCULATED LDL 115 mg/dL HDL(New) 36 mg/dL L >40 Sep 22, 2024 11:30 AM [facility] HGA1C BLOOD Specimen Type: BLOOD No comment entered. Ordering Provider: STEVEN SCHMIDT Report Released Date/Time: Sep 20, 2024 04:29 PM Reporting Lab: [facility] [address] [place] [address] Performing Lab: [address] [address] HGA1C 7.4 H 4.0-6.0 Sep 22, 2024 11:30 AM [facility] COMPREHENSIVE METABOLIC PANEL PLASMA S pecimen Type: PLASMA Comment: No hemolysis noted. Ordering Provider: STEVEN SCHMIDT Report Released Date/Time: Sep 20, 2024 04:29 PM Reporting Lab: [facility] [address] [place] [address] Performing Lab: [address] [address] CREATININE 1.01 mg/dL 0.7-1.3 UREA NITROGEN 15.7 [...] Sep 20, 2024 04:29 PM Reporting Lab: [place] [address] [facility] [address] Performing Lab: [place] [address] [facility] [address] TSH 2.029 u[IU]/mL 0.47-5 Sep 22, 2024 11:30 AM [facility] B12 SERUM Specimen Type: SERUM No comment entered. Ordering Provider: STEVEN SCHMIDT Report Released Date/Time: Sep 20, 2024 04:29 PM Reporting Lab: [place] [address] [facility] [address] Performing Lab: [place] [address] [facility] [address] B12 548 pg/mL 213-816 Sep 22, 2024 11:30 AM [facility] CBC BLOOD Specimen Type: BLOOD No comment entered. Ordering Provider: STEVEN SCHMIDT Report Released Date/Time: Sep 20, 2024 04:29 PM Reporting Lab: [place] [address] [facility] [address] Performing Lab: [address] [address] WBC 5.0 10*3/uL 3.6-11.2 RBC 4.54 10*6/uL [...] 0.00-0. 20 Sep 22, 2024 11:30 AM [facility] VITAMIN D, 25-HYDROXY SERUM Specimen Type: SERUM No comment entered. Ordering Provider: STEVEN SCHMIDT Report Released Date/Time: Sep 20, 2024 04:29 PM Reporting Lab: [facility] [address] [place] [address] Performing Lab: [address] [address] VITAMIN D, 25-HYDROXY 23.7 ng/mL L 30-96 Sep 22, 2024 11:30 AM [facility] MICRAL/CREAT PROFILE (STL) URINE Spec imen Type: URINE No comment entered. Ordering Provider: STEVEN SCHMIDT Report Released Date/Time: Sep 20, 2024 04:29 PM Reporting Lab: [facility] [address] [place] [address] Performing Lab: [facility] [address] [place] [address] URINE ALBUMIN (PB-STL) 7.6 mg/L uACR (STL) [...] ADVANCE DIRECTIVE DISCUSSION [facility] Radiology Reports: +/- 30 days of [...] 10:22 AM KNEE,RIGHT 3 VIEWS: LORETO SEO [id number] -1945 M Exm Date: SEP 28, 2024@10:22 Req Phys: STEVEN SCHMIDT Loc: RICHARD-WASH PACT 3 PCP (Req'g Loc) [facility] SU[facility] Service: Unknown [address] [address] (Case [id number] COMPLETE) KNEE,RIGHT 3 VIEWS (RAD Detailed) CPT:85988 Proc Modifiers : RIGHT, LATERAL, Stand AP, [place] Reason for Study: B knee pain Clinical History: Report Status: Verified Date Reported: SEP 29, 2024 Date Verified: SEP 29, 2024 Wire Splicer E-Sig:/ES/ROBERTO RAWLS MD Report: 3 views COMPARISON: None No acute fracture or dislocation 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 Other: Popcorn like calcification in the central distal femur typical of enchondroma. Probable intra-articular loose bodies Impression: Tricompartmental osteoarthritis Primary Interpreting Staff: ROBERTO RAWLS MD, Radiologist (Wire Splicer) /ROBERTO RAIN [facility] Sep 28, 2024 10:22 AM KNEE,LEFT, 3 VIEWS: LORETO SEO [id number] -1945 M Exm Date: SEP 28, 2024@10:22 Req Phys: STEVEN SCHMIDT Loc: RICHARD-WASH PACT 3 PCP (Req'g Loc) Im[facility] SU[facility] Service: Unknown [address] [address] (Case [id number] COMPLETE) KNEE,LEFT, 3 VIEWS (RAD Detailed) CPT:06966 Proc Modifiers : LEFT, LATERAL, Stand AP, [place] Reason for Study: B knee pain Clinical History: Report Status: Verified Date Reported: SEP 29, 2024 Date Verified: SEP 29, 2024 Wire Splicer E-Sig:/ES/ROBERTO RAWLS MD Report: 3 views COMPARISON: None No acute fracture or dislocation 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 Other: Large intra-articular loose bodies Impression: Tricompartmental osteoarthritis Primary Interpreting Staff: ROBERTO RAWLS MD, Radiologist (Wire Splicer) /ROBERTO RAIN [facility] Encounter Notes: All associated encounter notes This section contains the clinical notes associated to the Encounter. Date/Time Encounter Note(s) Provider Source Sep 30, 2024 10:30 AM CARE COORDINATION HOME TELEHEALTH VIDEO VISIT NOTE: LOCAL TITLE: GEROFIT VVC SUPERVISED EXERCISE NOTE [facility] STANDARD TITLE: CARE COORDINATION HOME TELEHEALTH VIDEO VISIT NO DATE OF NOTE: SEP 30, 2024@10:30 ENTRY DATE: SEP 30, 2024@11:41:18 AUTHOR: [place] [facility] EXP COSIGNER: URGENCY: STATUS: COMPLETED Gerofit Telehealth Remote Supervised Exercise Note [place] Provided informed consent to receive treatment via Telehealth. [place] mailed and has been made verbally aware of [facility] [place] practices. participated remotely in the Gerofit exercise program today through [employer]. Activities were focused on progression of their individual exercise prescription (cardiorespiratory fitness training, strength training, etc.) and group based exercise sessions to include, but not limited to: flexibility training, balance training & functional circuit training. Exercise class was instructed by Jenelle Julio and Mi Winter observed class for safety [...] Total Duration (minutes) for session: 90 Address: [address] [place] [address]; [address] [place] [address] [address], [place] [address] Contact Information: Rose[place] [phone] /es/ Mi Winter CARGO SURVEYOR Machine Packer Signed: 09/30/2024 12:03 [facility]
--- OUTSIDE RECORDS SUMMARY | 2025-01-21 13:02 | XMS_ITS | Encounter Summary ---
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 Name Role Phone KARON GARCIA Primary [...] B EXC) MAXIMO PALMA Jul 22, 2023 [phone] GABBI,GE DELONTE PATIENT [employer] PREFERRED PROVIDER ORGANIZAT ION (PPO) MAXIMO PALMA Apr 22, 2023 [id number] [phone] GABBI,GE DELONTE PATIENT [employer] PREFERRED PROVIDER ORGANIZAT ION (PPO) MAXIMO PALMA Jun 23, 2014 [id number] GABBIRUSSELL RUSHTrudy PATIENT [employer] PHARMACY PRESCRIPT ION NONE Feb 11, 2017 NONE [id number] RUSSELL SEO PATIENT [employer] PHARMACY PRESCRIPT ION NONE Feb 11, 2017 NONE [id number] RUSSELL SEO PATIENT [employer] RX PRESCRIPT ION RX PLAN Jun 23, 2021 [id number] RUSSELL SEO PATIENT [employer] RX PRESCRIPT ION RX PLAN Jun 23, 2021 [id number] RUSSELL SEO PATIENT [employer] RX PRESCRIPT ION FEHBP Jun 23, 2014 [id number] RUSSELL SEO PATIENT [facility]ETNA [facility] PREFERRED PROVIDER ORGANIZAT ION (PPO) MAXIMO PALMA Jun 23, 2014 [id number] RUSSELL SEO PATIENT MEDICARE (WNR) MEDICARE () PART B May 23, 2008 PART B [id number] RUSSELL SEO PATIENT MEDICARE (WNR) MEDICARE () PART B May 23, 2008 PART B [id number] [phone] RUSSELL SEOD PATIENT MEDICARE (WNR) MEDICARE () PART A Apr 23, 2008 PART A [id number] RUSSELL SEO PATIENT MEDICARE (WNR) MEDICARE () PART A Apr 23, 2008 PART A [id number] [phone] RUSSLEL SEOD PATIENT MEDICARE (WNR) MEDICARE () PART A Apr 23, 2008 PART A [id number] [phone] RUSSELL SEOD PATIENT MEDICARE (WNR) MEDICARE () PART B Apr 23, 2008 PART B [id number] [phone] RUSSELL SEO PATIENT Selected Encounter This section includes the information on record at [place] for the Encounter. Date/Time Encounter Type Encounter Description Reason Provider Source Sep 20, 2024 10:30 AM PT [facility] ICD-10-CM Z72.3 Lack of physical exercise RUSSELL,JOSE ANGEL P IHE Encounter Template Text not used by [facility] Assessments - Encounter Diagnoses This section includes the primary and secondary diagnoses documented for the Encounter. Date/Time Primary/Secondary Diagnosis Diagnosis Name Provider Source Sep 20, 2024 01:23 PM PRIMARY Lack of physical exercise [place] [facility] Plan of Treatment: Future Appointments (+ 6 months) and Future Tests (+/- 45 days) The Plan of Treatment section includes future care activities for the patient from all [place] treatmentfacilities. This section includes future appointments and future orders which are active, pending or scheduled. Future Appointments This section includes appointments that were scheduled to occur 6 months from the date of the Encounter, up to a maximum of 20 appointments. The data comes from all [place] treatment facilities. Appointment Date/Time Appointment Type Appointme nt Facility Name Sep 22, 2024 11:30 AM AMBULATORY - MEDICINE [facility] November 09, 2024 01:30 PM AMBULATORY - SURGERY [facility] Dec 07, 2024 11:00 AM AMBULATORY - MEDICINE [facility] Dec 27, 2024 10:30 AM AMBULATORY - MEDICINE [facility] Jan 07, 2025 08:00 AM AMBULATORY - NONE [facility] Feb 17, 2025 01:00 PM [...] Type Comment Sep 22, 2024 11:30 AM [facility] MAGNESIUM PLASMA Specimen Type: PLASMA Comment: No hemolysis noted. Ordering Provider: STEVEN SCHMIDT Report Released Date/Time: Sep 20, 2024 04:29 PM Reporting Lab: [facility] [address] [facility] [address] Performing Lab: [facility] [address] [address] MAGNESIUM 1.7 mg/dL 1.6-2.6 Sep 22, 2024 11:30 AM [facility] LIPID PANEL (STL) PLASMA Specimen Type : PLASMA Comment: No hemolysis noted. Ordering Provider: STEVEN SCHMIDT Report Released Date/Time: Sep 20, 2024 04:29 PM Reporting Lab: [facility] [address] [place] [phone] Performing Lab: [facility] [address] [facility] [address] CHOLESTEROL 185 mg/dL 0-200 TRIGLYCERIDE 171 mg/dL H 0-150 CALCULATED LDL 115 mg/dL HDL(New) 36 mg/dL L >40 Sep 22, 2024 11:30 AM [facility] HGA1C BLOOD Specimen Type: BLOOD No comment entered. Ordering Provider: STEVEN SCHMIDT Report Released Date/Time: Sep 20, 2024 04:29 PM Reporting Lab: [facility] [address] [place] [phone] Performing Lab: [address] [address] HGA1C 7.4 H 4.0-6.0 Sep 22, 2024 11:30 AM [facility] B12 SERUM Specimen Type: SERUM No comment entered. Ordering Provider: STEVEN SCHMIDT Report Released Date/Time: Sep 20, 2024 04:29 PM Reporting Lab: [facility] [address] Performing Lab: [address] [address] B12 548 pg/mL 213-816 Sep 22, 2024 11:30 AM [facility] TSH W/ REFLEX FT4 (STL) PLASMA Specime n Type: PLASMA No comment entered. Ordering Provider: STEVEN SCHMIDT Report Released Date/Time: Sep 20, 2024 04:29 PM Reporting Lab: [facility] [address] [place] [phone] Performing Lab: [address] [address] TSH 2.029 u[IU]/mL 0.47-5 Sep 22, 2024 11:30 AM [facility] COMPREHENSIVE METABOLIC PANEL PLASMA S pecimen Type: PLASMA Comment: No hemolysis noted. Ordering Provider: STEVEN SCHMIDT Report Released Date/Time: Sep 20, 2024 04:29 PM Reporting Lab: [address] [address] Performing Lab: [address] [address] CREATININE 1.01 mg/dL 0.7-1.3 UREA NITROGEN 15.7 [...] 74.7 >60 Sep 22, 2024 11:30 AM [facility] VITAMIN D, 25-HYDROXY SERUM Specimen Type: SERUM No comment entered. Ordering Provider: STEVEN SCHMIDT Report Released Date/Time: Sep 20, 2024 04:29 PM Reporting Lab: [facility] [address] [place] [phone] Performing Lab: [address] [address] VITAMIN D, 25-HYDROXY 23.7 ng/mL L 30-96 Sep 22, 2024 11:30 AM [facility] MICRAL/CREAT PROFILE (STL) URINE Spec imen Type: URINE No comment entered. Ordering Provider: STEVEN SCHMIDT Report Released Date/Time: Sep 20, 2024 04:29 PM Reporting Lab: [address] [address] Performing Lab: [address] [address] URINE ALBUMIN (PB-STL) 7.6 mg/L uACR (STL) 5 mg/g 0-29 CREATININE URINE/OTHERS 158.4 mg/dL 63-1 66 Sep 22, 2024 11:30 AM [facility] CBC BLOOD Specimen Type: BLOOD No comment entered. Ordering Provider: STEVEN SCHMIDT Report Released Date/Time: Sep 20, 2024 04:29 PM Reporting Lab: [facility] [address] [facility] [address] Performing Lab: [facility] [address] [facility] [address] WBC 5.0 10*3/uL 3.6-11.2 RBC 4.54 10*6/uL [...] 0.60 BASOPHILS, ABSOLUTE 0.03 10*3/uL 0.00-0. 20 Advance Directives: All historical and current Section Date Range: From patient's date of to the date document was created. This section includes ALL of a patient's completed or amended [place] Advance and Rescinded Directives. The entries below indicate that a directive exists for the patient, but an actual copy is not included with this document. The data comes from all [place] facilities. Date Advance Directives Provider Source Jan 14, 2022 ADVANCE DIRECTIVE DISCUSSION SHEA [facility] Radiology Reports: +/- 30 days of the [...] 10:22 AM KNEE,RIGHT 3 VIEWS: LORETO SEO [id number] -[id number] M Exm Date: SEP 28, 2024@10:22 Req Phys: STEVEN SCHMIDT Loc: [facility] 3 PCP (Req'g Loc) [facility] Service: Unknown [address] [address] (Case [id number] COMPLETE) KNEE,RIGHT 3 VIEWS (RAD Detailed) CPT:22054 Proc Modifiers : RIGHT, LATERAL, Stand AP, [place] Reason for Study: B knee pain Clinical History: Report Status: Verified Date Reported: SEP 29, 2024 Date Verified: SEP 29, 2024 Plumber'S Helper E-Sig:/ES/ROBERTO RAWLS MD Report: 3 views COMPARISON: None No acute fracture or dislocation 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 Other: Popcorn like calcification in the central distal femur typical of enchondroma. Probable intra-articular loose bodies Impression: Tricompartmental osteoarthritis Primary Interpreting Staff: ROBERTO RAWLS MD, Radiologist (Plumber'S Helper) /ROBERTO RAIN [facility] Sep 28, 2024 10:22 AM KNEE,LEFT, 3 VIEWS: LORETO SEO [id number] -1945 M Exm Date: SEP 28, 2024@10:22 Req Phys: STEVEN SCHMIDT Loc: [facility] 3 PCP (Req'g Loc) [facility] SU[facility] Service: Unknown [address] [address] (Case [id number] COMPLETE) KNEE,LEFT, 3 VIEWS (RAD Detailed) CPT:83415 Proc Modifiers : LEFT, LATERAL, Stand AP, [place] Reason for Study: B knee pain Clinical History: Report Status: Verified Date Reported: SEP 29, 2024 Date Verified: SEP 29, 2024 Plumber'S Helper E-Sig:/ES/ROBERTO RAWLS MD Report: 3 views COMPARISON: None No acute fracture or dislocation 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 Other: Large intra-articular loose bodies Impression: Tricompartmental osteoarthritis Primary Interpreting Staff: ROBERTO RAWLS MD, Radiologist (Plumber'S Helper) /ROBERTO RAIN [facility] Encounter Notes: All associated encounter notes This section contains the clinical notes associated to the Encounter. Date/Time Encounter Note(s) Provider Source Sep 20, 2024 10:30 AM CARE COORDINATION HOME TELEHEALTH VIDEO VISIT NOTE: LOCAL TITLE: GEROFIT VVC SUPERVISED EXERCISE NOTE [facility] STANDARD TITLE: CARE COORDINATION HOME TELEHEALTH VIDEO VISIT NO DATE OF NOTE: SEP 20, 2024@10:30 ENTRY DATE: SEP 20, 2024@11:47:52 AUTHOR: [place] [facility] EXP COSIGNER: URGENCY: STATUS: COMPLETED Gerofit Telehealth Remote Supervised Exercise Note Provided informed consent to receive treatment via Telehealth. [employer] mailed and has been made verbally aware of [facility] [place] practices. participated remotely in the Gerofit exercise program today through [employer]. 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
--- OUTSIDE RECORDS SUMMARY | 2025-01-21 13:02 | XMS_ITS | Encounter Summary ---
Author Name [facility] [place] [facility] [place] Address [address] [place] [address] Care Team Providers Care Physician Ophthalmologist Name Role Phone KARON GARCIA Primary Care [...] B EXC) MAXIMO PALMA Jul 22, 2023 [id number] [phone] GABBI,GE DELONTE PATIENT [employer] PREFERRED PROVIDER ORGANIZAT ION (PPO) MAXIMO PALMA Apr 22, 2023 [id number] GABBIRUSSELL RUSHTrudy PATIENT [employer] PREFERRED PROVIDER ORGANIZAT ION (PPO) MAXIMO PALMA Jun 23, 2014 [id number] [phone] RUSSELL SEO PATIENT [employer] PHARMACY PRESCRIPT ION NONE Feb 11, 2017 NONE [id number] RUSSELL SEO PATIENT [employer] PHARMACY PRESCRIPT ION NONE Feb 11, 2017 NONE [id number] RUSSELL SEOD PATIENT [employer] RX PRESCRIPT ION RX PLAN Jun 23, 2021 [id number] RUSSELL SEOD PATIENT [employer] RX PRESCRIPT ION RX PLAN Jun 23, 2021 [id number] RUSSELL SEOD PATIENT [employer] RX PRESCRIPT ION FEHBP Jun 23, 2014 [id number] RUSSELL SEOD PATIENT AETNA [facility] PREFERRED PROVIDER ORGANIZAT ION (PPO) MAXIMO PALMA Jun 23, 2014 [id number] RUSSELL SEOD PATIENT MEDICARE (WNR) MEDICARE () PART B May 23, 2008 PART B [id number] RUSSELL SEOD PATIENT MEDICARE (WNR) MEDICARE () PART B May 23, 2008 PART B [id number] GABBI,RUSSELL RALD PATIENT MEDICARE (WNR) MEDICARE () PART A Apr 23, 2008 PART A [id number] RUSSELL SEOD PATIENT MEDICARE (WNR) MEDICARE () PART A Apr 23, 2008 PART A [id number] RUSSELL SEO RALD PATIENT MEDICARE (WNR) MEDICARE () PART A Apr 23, 2008 PART A [id number] [phone] RUSSELL SEO RALD PATIENT MEDICARE (WNR) MEDICARE () PART B Apr 23, 2008 PART B [id number] [phone] RUSSELL SEOD PATIENT Selected Encounter This section includes the information on record at [place] for the Encounter. Date/Time Encounter Type Encounter Description Reason Provider Source Feb 05, 2024 12:14 PM OFFICE O/P EST MOD 30 MIN NON-OR ANESTHESIA PROCEDURES ICD-10-CM Z01.818 Encounter for other preprocedural examination LUCIEN REDMAN IHE Encounter Template Text not used by [place] Assessments - Encounter Diagnoses This section includes the primary and secondary diagnoses documented for the Encounter. Date/Time Primary/Secondary Diagnosis Diagnosis Name Provider Source Feb 13, 2024 01:44 PM PRIMARY Encounter for other preprocedural examination LUCIEN REDMAN [facility] Feb 13, 2024 01:44 PM SECONDARY Encounter for other specified surgical aftercare LUCIEN REDMAN [facility] Plan of Treatment: Future Appointments (+ 6 months) and Future Tests (+/- 45 days) The Plan of Treatment section includes future care activities for the [facility] [place] [facility] This section includes future appointments and [...] 10:00 AM AMBULATORY - SURGERY [facility] Feb 25, 2024 02:30 PM AMBULATORY - [facility]RY [facility] Mar 01, 2024 10:30 AM AMBULATORY - [facility]ERY [facility] Mar 26, 2024 10:30 AM AMBULATORY - MEDICINE [facility] Apr 12, 2024 01:00 PM AMBULATORY - SUR[facility]ERY [facility] Apr 14, 2024 02:00 PM AMBULATORY - MEDICINE [facility] May 06, 2024 11:00 AM AMBULATORY - [facility]ICINE [facility] May 10, 2024 06:00 AM AMBULATORY - NONE [facility] May 12, 2024 01:00 PM AMBULATORY - MEDICINE [facility] May 19, 2024 01:30 PM AMBULATORY - SURGERY [facility] [...] of theEncounter. The data comes from all [place] treatment facilities. Test Date/Time Test Type Test Details Facility Name Mar 01, 2024 12:00 AM Laboratory - Blood Bank Order TYPE & SCREEN - LAB BLOOD SP [facility] Lab Results: +/- 30 days of the encounter This section includes the Chemistry and Hematology Lab Results on record with [place] for the patient. Radiology Reports and Pathology Reports are provided separately, in subsequent sections. Lab Results This section contains the Chemistry/Hematology Results that were resulted 30 days before or 30 daysafter the date of the Encounter. Date/Time Source Result Type Result - Unit Interpretation Reference Range Specimen Type Comment Mar 01, 2024 12:51 PM [facility] PT/INR NEW (STL-MA) PLASMA Specimen Type: PLASMA No comment entered. Ordering Provider: LEISA MATHIS Report Released Date/Time: Mar 01, 2024 12:16 PM Reporting Lab: [address] [address] Performing Lab: [address] [address] PROTIME 12.7 s H 9.4-12.5 INR VALUE 1.1 {INR} Mar 01, 2024 12:51 PM [facility] COMPREHENSIVE METABOLIC PANEL PLASMA Specimen Type: PLASMA Comment: No hemolysis noted. Ordering Provider: LEISA MATHIS Report Released Date/Time: Mar 01, 2024 12:16 PM Reporting Lab: [address] [address] Performing Lab: [address] [address] CREATININE 1.37 mg/dL H 0.7-1.3 UREA NITROGEN [...] 52.2 >60 Mar 01, 2024 12:51 PM [facility] CBC BLOOD Specimen Type: BLOOD No comment entered. Ordering Provider: LEISA MATHIS Report Released Date/Time: Mar 01, 2024 12:16 PM Reporting Lab: [address] [address] Performing Lab: [address] [address] WBC 9.4 10*3/uL 3.6-11.2 RBC 4.90 10*6/uL [...] 0.00-0. 20 Feb 05, 2024 01:14 PM [facility] GLUCOSE,BLOOD-poct (STL) BLOOD Specimen Type: BLOOD Comment: Test Performed by: [id number] Meter #: [id number] Ordering Provider: STEVEN SCHMIDT Report Released Date/Time: Feb 05, 2024 01:26 PM Reporting Lab: [address] [place] [address] Performing Lab: [facility] [address] [facility] [address] GLUCOSE,BLOOD-poct (STL) 105 mg/dL H 72-99 Advance [...] this document. The data comes from all [place] facilities. Date Advance Directives Provider Source Jan [...] the Encounter. The data comes from all [place] treatment facilities. Date/Time Radiology Report Provider Source Mar 01, 2024 01:21 PM CHEST X-RAY, 2 VIEWS: LORETO SEO ALON [id number] -[id number] M Exm Date: MAR 01, 2024@13:21 Req Phys: ALY GO Loc: [facility]G HEPATOBILIARY (Req Img Loc: -MAIN RADIOLOGY SUITE Service: [facility], [facility] [address] [place] [address] (Case [id number] COMPLETE) CHEST X-RAY, 2 VIEWS (RAD Detailed) CPT:64160 Reason for Study: preop Clinical History: Report Status: Verified Date Reported: MAR 01, 2024 Date Verified: MAR 01, 2024 Financial Reporting Consultant E-Sig:/ES/Christopher Dumont MD. FACR. Report: History: preop. [...] Interpreting Staff: Christopher Dumont MD. FACR, Neuroradiologist (Financial Reporting Consultant) /CHRISTOPHER BENNETT [facility] Feb 05, 2024 02:47 PM OBSTRUCTIVE SERIES: LORETO SEO [id number] -1945 M Exm Date: FEB 05, 2024@14:47 Req Phys: NELLY LIZARRAGA Pat Loc: -GI/ENDO LAB ANESTHESIA2 (Re Img Loc: -MAIN RADIOLOGY SUITE Service: [address] [address] (Case [id number] COMPLETE) OBSTRUCTIVE SERIES (RAD Detailed) CPT:20353 Reason for Study: localize endoscopic clip, placed at lumenal defect, GB fistula? Clinical History: Report Status: Verified Date Reported: FEB 06, 2024 Date Verified: FEB 06, 2024 Financial Reporting Consultant E-Sig:/ES/ALEX DE ANDA MD Report: Case #[id number]. [...] DE ANDA MD, Staff Physician - Radiologist (Financial Reporting Consultant) /ALEX BROWNING [facility] Encounter Notes: All associated encounter notes This section contains the clinical notes associated to the Encounter. Date/Time Encounter Note(s) Provider Source Feb 05, 2024 02:44 PM ANESTHESIOLOGY POS T OPERATIVE E & M NOTE: LOCAL TITLE: ANESTHESIA POST-OP STL STANDARD TITLE: ANESTHESIOLOGY POST OPERATIVE E & M NOTE DATE OF NOTE: FEB 05, 2024@14:44 ENTRY DATE: FEB 05, 2024@14:44:47 AUTHOR: LUCIEN REDMAN EXP COSIGNER: URGENCY: STATUS: COMPLETED Anesthesia Post-Anesthetic No Complications: Anesthesia Intra-Op Flowsheet Uploaded to Garlandsabrina Esqueda /es/ LUCIEN REDMAN MD Staff Physician, Anesthesiology Signed: 02/05/2024 14:[address] [facility] Feb 05, 2024 12:14 PM ANESTHESIOLOGY PRE OPERATIVE E & M NOTE: LOCAL TITLE: ANESTHESIA PRE-OP STL STANDARD TITLE: ANESTHESIOLOGY PRE OPERATIVE E & M NOTE DATE OF NOTE: FEB 05, 2024@12:14 ENTRY DATE: FEB 05, 2024@12:14:22 AUTHOR: LUCIEN REDMAN EXP COSIGNER: URGENCY: STATUS: COMPLETED ANESTHESIA PRE-OP STL Has ADDENDA Pre-Operative Diagnosis: surveillance Operation proposed: colonoscopy Vitals: Age: 78 Weight: 225.1 lb [102.10 kg] (12/01/2023 10:41) Height: 72 in [182.9 cm] (12/01/2023 10:41) Blood Pressure: 155/68 (12/01/2023 10:41) Pulse: 86 (12/01/2023 10:41) Temp: 97.2 F [36.2 C] (12/01/2023 10:41) Resp: 18 (12/01/2023 10:41) SpO2: 99% (12/01/2023 10:41) BMI: 30.6 Allergies: Patient has answered NKA Medications: ACTIVE INPT MEDS: No medications found. Active Outpatient Medications (including Supplies): Active Outpatient Medications Status 1) ACCU-CHEK GUIDE (GLUCOSE) TEST STRIP USE 1 STRIP FOR ACTIVE BLOOD TEST DIRECTED *METFORMIN ALONE, 50 STRIPS PER YEAR Aug 2) ALCOHOL PREP PAD USE/APPLY PAD TO AFFECTED AREA(S) ACTIVE TWO TIMES PER WEEK FOR SKIN CLEANSING 3) ASPIRIN 81MG EC TAB TAKE ONE TABLET BY MOUTH ONCE A ACTIVE DAY TAKE WITH FOOD. 4) ATORVASTATIN CALCIUM 80MG TAB TAKE ONE TABLET BY ACTIVE MOUTH EVERY EVENING FOR HIGH CHOLESTEROL 5) BENZONATATE 100MG CAP TAKE ONE CAPSULE BY MOUTH THREE ACTIVE TIMES A DAY NEEDED FOR COUGH 6) BISACODYL 5MG EC TAB TAKE TWO TABLETS BY MOUTH ONE ACTIVE TIME TAKE BISACODYL TABLETS AT 4PM ON AFTERNOON PRIOR TO TEST. CALL [phone] WITH ANY QUESTIONS ABOUT THESE INSTRUCTIONS. MAIL 7) BUSPIRONE HCL 10MG TAB TAKE ONE-HALF TABLET BY MOUTH ACTIVE ONCE A DAY FOR ANXIETY DO NOT TAKE WITH GRAPEFRUIT JUICE. 8) CETIRIZINE HCL 10MG TAB TAKE ONE TABLET BY MOUTH ONCE ACTIVE A DAY NEEDED FOR ALLERGY SYMPTOMS 9) CHOLECALCIF 50MCG (D3-2,000UNIT) TAB TAKE ONE TABLET ACTIVE BY MOUTH ONCE A DAY FOR VITAMIN D DEFICIENCY 10) CHOLESTYRAMINE 4GM/5GM (LIGHT) PWD PKT MIX AND DRINK ACTIVE 1 PACKET BY MOUTH TWICE DAILY NEEDED FOR CHRONIC DIARRHEA MIX WITH WATER DIRECTED. TAKE OTHER MEDICATIONS 1 HOUR BEFORE OR 6 HOURS AFTER ADMINISTRATION. 11) CLOPIDOGREL BISULFATE 75MG TAB TAKE ONE TABLET BY ACTIVE MOUTH ONCE A DAY FOR ACUTE CORONARY SYNDROME 12) CYANOCOBALAMIN 1000MCG TAB TAKE ONE TABLET BY MOUTH ACTIVE ONCE A DAY FOR VITAMIN B12 SUPPLEMENTATION 13) CYCLOBENZAPRINE HCL 10MG TAB TAKE ONE TABLET BY MOUTH ACTIVE AT BEDTIME NEEDED FOR MUSCLE SPASM MAY CAUSE DROWSINESS. DO NOT DRINK ALCOHOL WHILE TAKING THIS MEDICATION. 14) DICLOFENAC NA 1% TOP GEL APPLY 4 GM TO AFFECTED ACTIVE AREA(S) FOUR TIMES A DAY NEEDED FOR PAIN DO NOT EXCEED MORE THAN 16 GRAMS DAILY TO ANY LOWER EXTREMITY JOINT. NOT MORE THAN 8 GRAMS DAILY TO ANY UPPER EXTREMITY JOINT. MAX 32GM/DAY OVER ALL JOINTS. (MEASURE DOSE WITH RULER ATTACHED INSIDE BOX) 15) DONEPEZIL HCL 10MG TAB TAKE ONE TABLET BY MOUTH AT ACTIVE BEDTIME FOR ALZHEIMER DISEASE (JUST BEFORE BEDTIME) 16) EMPAGLIFLOZIN 25MG TAB TAKE ONE-HALF TABLET BY MOUTH ACTIVE ONCE A DAY 17) GABAPENTIN 100MG CAP TAKE ONE CAPSULE BY MOUTH TWICE ACTIVE A DAY AND TAKE THREE CAPSULES AT BEDTIME FOR NERVE PAIN 18) IRBESARTAN 300MG TAB TAKE ONE TABLET BY MOUTH ONCE A ACTIVE DAY FOR HIGH BLOOD PRESSURE 19) ISOSORBIDE MONONITRATE 30MG SA TAB TAKE ONE TABLET BY ACTIVE MOUTH ONCE A DAY FOR CHEST PAIN TAKE ON EMPTY STOMACH. SWALLOW WHOLE. DO NOT CRUSH OR CHEW. 20) LANCET,SOFTCLIX USE LANCET FOR BLOOD TEST TWO TIMES ACTIVE PER WEEK FOR BLOOD SUGAR MONITORING USE DIRECTED. 21) METFORMIN HCL 1000MG TAB TAKE ONE TABLET BY MOUTH ACTIVE ONCE A DAY FOR DIABETES TAKE WITH FOOD. AVOID ALCOHOL. DISCONTINUE BEFORE GETTING XRAY DYE. 22) METOPROLOL SUCCINATE 100MG SA TAB TAKE ONE-HALF ACTIVE TABLET BY MOUTH ONCE A DAY FOR HIGH BLOOD PRESSURE SWALLOW WHOLE, DO NOT CRUSH OR CHEW (TABLETS MAY BE CUT IN HALF). 23) OMEPRAZOLE 40MG EC CAP TAKE ONE CAPSULE BY MOUTH ACTIVE EVERY MORNING BEFORE A MEAL TAKE 30 MINUTES PRIOR TO FOOD. 24) SIMETHICONE 80MG CHEW TAB CHEW AND SWALLOW FOUR ACTIVE TABLETS BY MOUTH DIRECTED FOR GAS DISCOMFORT FOR TWO DOSES BEFORE GI PROCEDURE 25) TAMSULOSIN HCL 0.4MG CAP TAKE TWO CAPSULES BY MOUTH ACTIVE EVERY EVENING FOR BENIGN PROSTATIC HYPERPLASIA APPROXIMATELY 30 MINUTES AFTER THE SAME MEAL EACH DAY Most Recent Labs/CXR/EKG Results HGB 15.8 g/dL 09/24/2023 13:00 HCT 48.1 % (09/24/23 13:00) PLT 232 10*3/uL 09/24/2023 13:00 WBC 5.2 10*3/uL (09/24/23 13:00) PT ____ No PTT EO data found No INR EO data found SODIUM 139 mEq/L 09/24/2023 13:00 POTASSIUM 3.8 mEq/L 09/24/2023 13:00 CHLORIDE 107 mEq/L 09/24/2023 13:00 UREA NITROGEN 14.9 mg/dL 09/24/2023 13:00 CREATININE 1.13 mg/dL 09/24/2023 13:00 CALCIUM 9.6 mg/dL 09/24/2023 13:00 CARBON DIOXIDE 24 mEq/L 09/24/2023 13:00 GLUCOSE 166 H mg/dL 09/24/2023 13:00 EGFR (CKD-EPI 2020) 65.7 09/24/2023 13:00 ALBUMIN 4.0 g/dL 09/24/2023 13:00 HGA1C 6.6 H % 09/24/2023 13:00 ALKALINE PHOSPHATASE 145 U/L 09/24/2023 13:00 SGPT/ALT 23 U/L (09/24/23 13:00) SGOT/AST 17 U/L (09/24/23 13:00) TOTAL BILIRUBIN 0.8 mg/dL 09/24/2023 13:00 No GLUCOSE,BLOOD-poct (STL) data found URINE COLOR Light-Yellow 07/23/2023 11:50 APPEARANCE Clear 07/23/2023 11:50 U.PH 6.5 07/23/2023 11:50 U.BILIRUBIN Negative mg/dL 07/23/2023 11:50 U.NITRITE Negative mg/dL 07/23/2023 11:50 UDS: No URINE DRUG SCREEN EO data found TEST: No TEST LAST ONE EO data found No HIV SCREENING EO data found [facility] Hep C tests in last five years. *No Lab Data Found* CXR: No Impressions found EK06/06/2023 Sinus rhythm with 1st degree A-V block Possible Left atrial enlargement Borderline ECG No previous ECGs available Problem List: 1) Coronary artery disease 2) Hyperlipidemia 3) Benign essential hypertension 4) Diabetic neuropathy with neurologic complication 5) Abdominal aortic aneurysm 6) Gastroesophageal reflux disease 7) Knee pain 8) Callous character REVIEW OF SYSTEMS: RESPIRATORY: Recent or current SOB-denies Asthma-denies h/o or current wheezing Acute Bronchitis-Denies any recent episodes of bronchitis COPD:denies Pneumonia-Denies any recent or past history Sleep Apnea:denies Purulent Sputum-denies any recent history Wheezing-denies any recent history CARDIAC: Chest Pain-denies any recent chest pressure/pain + Hypertensio Myocardial Infarction-denies + Coronary Artery Disease, s/p PTCA with stents, Valvular Disease-denies any signs/symptoms/diagnosis Dysrythmia-denies Congestive Heart Failure-No history of CHF + Peripheral Vascular Disease: TAA 4.7 cm. Exercise Tolerance: fair OFFICE MACHINE SERVICE SUPERVISOR: Cerebral Vascular Accident-denies Seizures-denies Post-Traumatic Stress Disorder-Denies any recent or past history Mental Disorder-denies any recent or past history Depression-denies any recent or past history + DM neuropathy ENDOCRINE: Thyroid Disease-denies + Diabetes Type 2 RENAL SYSTEM: Kidney Stones:denies any recent or past history Urinary Obstruction- denies + Chronic Renal Insufficiency (CRI) GI SYSTEM: Liver Disease-denies Hepatitis C-denies + GERD Peptic Ulcer Disease-denies Hiatal Hernia-denies any recent or past history HEMATOLOGY: Anemia-denies any recent or past history Leukemia-denies any recent or past history Lymphoma-denies any recent or past history Other: denies any recent or past history of bleeding disorders + on Plavix, last dose was MUSCULOSKELETAL: Rheumatoid Arthritis-denies + Degenerative Joint Disease Muscular Disease-denies HABITS: ETOH use: Current: no Remote: denies abuse Smoking History: Non-smoker Illicit Drugs: denies any IVDA/ MJ use. PSH: No previous Anesthesia complications Physical Exam: Sensorium-AAOx3 Auscultation Finding: Heart Sounds: Regular Rate, Regular Rhythm Breath Sounds: Clear AIRWAY: MP CLASS:II SUBMANDIBULAR SPACE:3 finger breaths RANGE OF MOTION: FULL TEETH: edentulous ASA: 3 PLAN: MAC Risks/Options discussed with elmer. Patient verbalized acceptance of risks of anesthesia related procedures NPO > 8 HOURS, finished bowel prep at 7:30 am BBT: takes BB /leobardo/ LUCIEN REDMAN MD Staff Physician, Anesthesiology Signed: 02/05/2024 13:04 Receipt Acknowledged By: 02/05/2024 13:13 /leobardo/ LAURENCE FARNSWORTH CRNA 02/05/2024 ADDENDUM STATUS: COMPLETED Last dose of Plavix was 5 days ago. /leobardo/ LUCIEN REDMAN MD Staff Physician, Anesthesiology Signed: 02/05/2024 13:[address] [facility]
--- OUTSIDE RECORDS SUMMARY | 2025-01-21 13:02 | XMS_ITS ---
Author Name [facility] [place] [facility] [place] Address [address] [place] [address] Care Team Providers Care Chief Compliance Officer Name Role Phone KARON GARCIA Primary Care [...] B EXC) MAXIMO PALMA Jul 22, 2023 [id number] [phone] GABBI,GE DELONTE PATIENT AETNA PREFERRED PROVIDER ORGANIZAT ION (PPO) MAXIMO PALMA Apr 22, 2023 [id number] GABBI,GE DELONTE PATIENT AETNA PREFERRED PROVIDER ORGANIZAT ION (PPO) MAXIMO PALMA Jun 23, 2014 [id number] RUSSELL SEOTrudy PATIENT AETNA PHARMACY PRESCRIPT ION NONE Feb 11, 2017 NONE [phone] RUSSELL SEO PATIENT AETNA PHARMACY PRESCRIPT ION NONE Feb 11, 2017 NONE [id number] RUSSELL SEO PATIENT AETNA RX PRESCRIPT ION RX PLAN Jun 23, 2021 [id number] RUSSELL SEO PATIENT AETNA RX PRESCRIPT ION RX PLAN Jun 23, 2021 [id number] RUSSELL SEO PATIENT AETNA RX PRESCRIPT ION FEHBP Jun 23, 2014 [id number] RUSSELL SEO PATIENT AETNA [facility] PREFERRED PROVIDER ORGANIZAT ION (PPO) MAXIMO PALMA Jun 23, 2014 [id number] RUSSELL SEO PATIENT MEDICARE (WNR) MEDICARE (M) PART B May 23, 2008 PART B [id number] RUSSELL SEO PATIENT MEDICARE (WNR) MEDICARE (M) PART B May 23, 2008 PART B [id number] [phone] RUSSELL SEOD PATIENT MEDICARE (WNR) MEDICARE (M) PART A Apr 23, 2008 PART A [id number] RUSSELL SEOD PATIENT MEDICARE (WNR) MEDICARE (M) PART A Apr 23, 2008 PART A [id number] RUSSELL SEO PATIENT MEDICARE (WNR) MEDICARE (M) PART A Apr 23, 2008 PART A [id number] RUSSELL SEO PATIENT MEDICARE (WNR) MEDICARE (M) PART B Apr 23, 2008 PART B [id number] RUSSELL SEO PATIENT Selected Encounter This section includes the information on record at [place] for the Encounter. Date/Time Encounter Type Encounter Description Reason Provider Source Feb 05, 2024 01:55 PM Outpatient Encounter ADMIN PAT ACTIVTIES (MASNONCT) LAURECNE FARNSWORTH Encounter Template Text not used by [facility] Plan of Treatment: Future Appointments (+ 6 months) and Future Tests (+/- 45 days) The Plan of Treatment section includes future care activities for the [place] from all [place]. This section includes future appointments and future orders which are active, pending or scheduled. Future Appointments This section includes appointments that were scheduled to occur 6 months from the date of the Encounter, up to a maximum of 20 appointments. The data comes from all [facility]. Appointment Date/Time Appointment Type Appointme nt Facility Name Feb 24, 2024 10:00 AM [facility] Feb 25, 2024 02:30 PM AMBULATORY - PSYCHIATRY [facility] Mar 01, 2024 10:30 AM AMBULATORY - SURGERY [facility] Mar 26, 2024 10:30 AM AMBULATORY - MEDICINE [facility] Apr 12, 2024 01:00 PM AMBULATORY - SURGERY . [facility] Apr 14, 2024 02:00 PM AMBULATORY - MEDICINE [facility] May 06, 2024 11:00 AM [facility] May 10, 2024 06:00 AM [facility]ATORY - NONE [facility] May 12, 2024 01:00 PM AMBULATORY - MEDICINE [place] May 19, 2024 01:30 PM AMBULATORY - SURGERY [facility] May 31, 2024 10:00 AM AMBULATORY [...] of theEncounter. The data comes from all [facility]. Test Date/Time Test Type Test Details Facility Name Mar 01, 2024 12:00 AM Laboratory - Blood Bank Order TYPE & SCREEN - LAB BLOOD SP [facility] Lab Results: +/- 30 days of the encounter This section includes the Chemistry and Hematology Lab Results on record with [place] for the patient. Radiology Reports and Pathology Reports are provided separately, in subsequent sections. Lab Results This section contains the Chemistry/Hematology Results that were resulted 30 days before or 30 daysafter the date of the Encounter. Date/Time Source Result Type Result - Unit Interpretation Reference Range Specimen Type Comment Mar 01, 2024 12:51 PM [facility] PT/INR NEW (ST-TX) PLASMA Specimen Type: PLASMA No comment entered. Ordering Provider: LEISA MATHIS Report Released Date/Time: Mar 01, 2024 12:16 PM Reporting Lab: [address] [address] Performing Lab: [address] [address] PROTIME 12.7 s H 9.4-12.5 INR VALUE 1.1 {INR} Mar 01, 2024 12:51 PM [facility] CBC BLOOD Specimen Type: BLOOD No comment entered. Ordering Provider: LEISA MATHIS Report Released Date/Time: Mar 01, 2024 12:16 PM Reporting Lab: [address] [address] Performing Lab: [address] [address] WBC 9.4 10*3/uL 3.6-11.2 RBC 4.90 10*6/uL [...] 0.00-0. 20 Mar 01, 2024 12:51 PM [facility] COMPREHENSIVE METABOLIC PANEL PLASMA Specimen Type: PLASMA Comment: No hemolysis noted. Ordering Provider: LEISA MATHIS Report Released Date/Time: Mar 01, 2024 12:16 PM Reporting Lab: [address] [address] Performing Lab: [address] [address] CREATININE 1.37 mg/dL H 0.7-1.3 UREA NITROGEN [...] 52.2 >60 Feb 05, 2024 01:14 PM [facility] GLUCOSE,BLOOD-poct (STL) BLOOD Specimen Type: BLOOD Comment: Test Performed by: [id number] Meter #: [id number] Ordering Provider: STEVEN SCHMIDT Report Released Date/Time: Feb 05, 2024 01:26 PM Reporting Lab: [place] [id number] [facility] [address] Performing Lab: [address] [address] GLUCOSE,BLOOD-poct (STL) 105 mg/dL H 72-99 Advance Directives: All historical and current Section Date Range: From patient's date of to the date document was created. This section includes ALL of a patient's completed or amended [place] Advance and Rescinded Directives. The entries below indicate that a directive exists for the patient, but an actual copy is not included with this document. The data comes from all [place] facilities. Date Advance Directives Provider Source Jan 14, 2022 ADVANCE DIRECTIVE DISCUSSION SHAE WINTER [facility] Radiology Reports: +/- 30 days of [...] the Encounter. The data comes from all [place] treatment facilities. Date/Time Radiology Report Provider Source Mar 01, 2024 01:21 PM CHEST X-RAY, 2 VIEWS: GABBIGERALDOLORETOLENORA CHI [id number] -1945 M Exm Date: MAR 01, 2024@13:21 Req Phys: ALY GO Loc: -GEN SURG HEPATOBILIARY (Req Img Loc: -MAIN RADIOLOGY SUITE Service: [address] [address] (Case [id number] COMPLETE) CHEST X-RAY, 2 VIEWS (RAD Detailed) CPT:70537 Reason for Study: preop Clinical History: Report Status: Verified Date Reported: MAR 01, 2024 Date Verified: MAR 01, 2024 Baker Apprentice E-Sig:/ES/Christopher Dumont MD. FACR. Report: History: preop. [...] Interpreting Staff: Christopher Dumont MD. FACR, Neuroradiologist (Baker Apprentice) /CHRISTOPHER BENNETT [facility] Feb 05, 2024 02:47 PM OBSTRUCTIVE SERIES: LORETO SEO [id number] -1945 M Exm Date: FEB 05, 2024@14:47 Req Phys: NELLY LIZARRAGA Loc: -GI/ENDO LAB ANESTHESIA2 (Re Img Loc: -MAIN RADIOLOGY SUITE Service: Unknown [facility], [address] [address] [place] [address] (Case [id number] COMPLETE) OBSTRUCTIVE SERIES (RAD Detailed) CPT:55369 Reason for Study: localize endoscopic clip, placed at lumenal defect, GB fistula? Clinical History: Report Status: Verified Date Reported: FEB 06, 2024 Date Verified: FEB 06, 2024 Baker Apprentice E-Sig:/ES/ALEX DE ANDA MD Report: Case #[id number]. [...] DE ANDA MD, Staff Physician - Radiologist (Baker Apprentice) /ALEX BROWNING [facility] Encounter Notes: All associated encounter notes This section contains the clinical notes associated to the Encounter. Date/Time Encounter Note(s) Provider Source Feb 05, 2024 01:55 PM ANESTHESIOLOGY RUSSEL WSHEET: LOCAL TITLE: ANES INTRA-OP FLOWSHEET ST STANDARD TITLE: ANESTHESIOLOGY FLOWSHEET DATE OF NOTE: FEB 05, 2024@13:55 ENTRY DATE: FEB 05, 2024@13:55:56 AUTHOR: LAURENCE FARNSWORTH COSIGNER: URGENCY: STATUS: COMPLETED Patient: LORETO SEO SSN: [id number] Date of Operation: 02/05/2024 Surgery Start Time: Surgery End Time: Anesthesia Care Start: 02/05/2024 13:20 Anesthesia Care End: 02/05/2024 13:51 Anesthesia Method: Monitored 02/05/2024 13:23 (Primary), Level Of Consciousness: Sedated, Monitors Applied, Oxygen Therapy: Mask, EtCO2 Verified: Waveform Positioning: Head Neutral, Head And Neck In Alignment With Spine, Pressure Points Padded & Checked, Eyes, Ears And Nose Free Of Pressure ASA Number: 3 Procedure: colonoscopy 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 SUPER. LAURENCE FARNSWORTH PRIN. ANES. Procedure Date: 02/05/2024 Procedure Start Time: 02/05/2024 13:26 Procedure End Time: 02/05/2024 13:48 /leobardo/ LAURENCE FARNSWORTH TACKING MACHINE OPERATOR Signed: 02/05/2024 13:55 [facility]
--- OUTSIDE RECORDS SUMMARY | 2025-01-21 13:02 | XMS_ITS ---
Author Name [facility] [place] Address [address] [place] [address] Care Team Providers Care Retail Sales Vitamin Consultant Name Role Phone KARON GARCIA Primary [...] B EXC) MAXIMO PALMA Jul 22, 2023 [id number] [phone] GABBIRUSSELL PATIENT [employer]ETNA PREFERRED PROVIDER ORGANIZAT ION (PPO) MAXIMO PALMA Apr 22, 2023 [id number] [phone] GABBIRUSSELL MARTEL PATIENT AETNA PREFERRED PROVIDER ORGANIZAT ION (PPO) MAXIMO PALMA Jun 23, 2014 [id number] [phone] GABBIRUSSELL RUSHTrudy PATIENT AETNA PHARMACY PRESCRIPT ION NONE Feb 11, 2017 NONE [id number] RUSSELL SEO PATIENT AETNA PHARMACY PRESCRIPT ION NONE Feb 11, 2017 NONE [id number] RUSSELL SEO PATIENT AETNA RX PRESCRIPT ION RX PLAN Jun 23, 2021 [id number] RUSSELL SEO PATIENT AETNA RX PRESCRIPT ION RX PLAN Jun 23, 2021 [id number] RUSSELL SEO PATIENT AETNA RX PRESCRIPT ION FEHBP Jun 23, 2014 [id number] RUSSELL SEO PATIENT AETNA [facility] PREFERRED PROVIDER ORGANIZAT ION (PPO) MAXIMO PALMA Jun 23, 2014 [id number] RUSSELL SEO PATIENT MEDICARE (WN) MEDICARE () PART B May 23, 2008 PART B [id number] [phone] RUSSELL SEO PATIENT MEDICARE (WNR) MEDICARE () PART B May 23, 2008 PART B [id number] RUSSELL SEOD PATIENT MEDICARE (WNR) MEDICARE () PART A Apr 23, 2008 PART A [id number] RUSSELL SEO PATIENT MEDICARE (WNR) MEDICARE () PART A Apr 23, 2008 PART A [id number] RUSSELL SEO PATIENT MEDICARE (WNR) MEDICARE () PART A Apr 23, 2008 PART A [id number] [phone] RUSSELL SEOD PATIENT MEDICARE (WNR) MEDICARE () PART B Apr 23, 2008 PART B [id number] RUSSELL SEO PATIENT Selected Encounter This section includes the information on record at [place] for the Encounter. Date/Time Encounter Type Encounter Description Reason Provider Source Sep 23, 2024 10:30 AM EDU&TRN PT SELF-MGMT NQHP 1 [facility] ICD-10-CM Z72.3 Lack of physical exercise JESSICA ANDREA Encounter Template Text not used by [place] Assessments - Encounter Diagnoses This section includes the primary and secondary diagnoses documented for the Encounter. Date/Time Primary/Secondary Diagnosis Diagnosis Name Provider Source Sep 23, 2024 11:30 AM PRIMARY Lack of physical exercise MI WINTER [facility] Plan of Treatment: Future Appointments [...] 2024 01:30 PM AMBULATORY - SURGERY [facility] Dec 07, 2024 11:00 AM AMBULATORY - MEDICINE [facility] Dec 27, 2024 10:30 AM AMBULATORY - MEDICINE [facility] Jan 07, 2025 08:00 AM AMBULATORY - NONE [facility] Feb 17, 2025 01:00 PM AMBULATORY - SURGERY . [facility] Mar 24, 2025 02:30 PM AMBULATORY - MEDICINE [facility] Lab Results: +/- 30 days of [...] Type Comment Sep 22, 2024 11:30 AM [facility] MAGNESIUM PLASMA Specimen Type: PLASMA Comment: No hemolysis noted. Ordering Provider: STEVEN SCHMIDT Report Released Date/Time: Sep 20, 2024 04:29 PM Reporting Lab: [facility] [address] [facility] [address] Performing Lab: [facility] [address] [facility] [address] MAGNESIUM 1.7 mg/dL 1.6-2.6 Sep 22, 2024 11:30 AM [facility] LIPID PANEL (STL) PLASMA Specimen Type : PLASMA Comment: No hemolysis noted. Ordering Provider: STEVEN SCHMIDT Report Released Date/Time: Sep 20, 2024 04:29 PM Reporting Lab: [address] [address] Performing Lab: [address] [address] CHOLESTEROL 185 mg/dL 0-200 TRIGLYCERIDE 171 mg/dL H 0-150 CALCULATED LDL 115 mg/dL HDL(New) 36 mg/dL L >40 Sep 22, 2024 11:30 AM [facility] HGA1C BLOOD Specimen Type: BLOOD No comment entered. Ordering Provider: STEVEN SCHMIDT Report Released Date/Time: Sep 20, 2024 04:29 PM Reporting Lab: [address] [address] Performing Lab: [address] [address] HGA1C 7.4 H 4.0-6.0 Sep 22, 2024 11:30 AM [facility] COMPREHENSIVE METABOLIC PANEL PLASMA S pecimen Type: PLASMA Comment: No hemolysis noted. Ordering Provider: STEVEN SCHMIDT Report Released Date/Time: Sep 20, 2024 04:29 PM Reporting Lab: [address] [address] Performing Lab: [address] [address] CREATININE 1.01 mg/dL 0.7-1.3 UREA NITROGEN 15.7 [...] 74.7 >60 Sep 22, 2024 11:30 AM [facility] TSH W/ REFLEX FT4 (STL) PLASMA Specime n Type: PLASMA No comment entered. Ordering Provider: STEVEN SCHMIDT Report Released Date/Time: Sep 20, 2024 04:29 PM Reporting Lab: [address] [address] Performing Lab: [place] [address] [facility] [address] TSH 2.029 u[IU]/mL 0.47-5 Sep 22, 2024 11:30 AM [facility] B12 SERUM Specimen Type: SERUM No comment entered. Ordering Provider: STEVEN SCHMIDT Report Released Date/Time: Sep 20, 2024 04:29 PM Reporting Lab: [place] [address] [facility] [address] Performing Lab: [place] [address] [facility] [address] B12 548 pg/mL 213-816 Sep 22, 2024 11:30 AM [facility] CBC BLOOD Specimen Type: BLOOD No comment entered. Ordering Provider: STEVEN SCHMIDT Report Released Date/Time: Sep 20, 2024 04:29 PM Reporting Lab: [place] [address] [facility] [address] Performing Lab: [address] [address] WBC 5.0 10*3/uL 3.6-11.2 RBC 4.54 10*6/uL [...] 0.00-0. 20 Sep 22, 2024 11:30 AM [facility] VITAMIN D, 25-HYDROXY SERUM Specimen Type: SERUM No comment entered. Ordering Provider: STEVEN SCHMIDT Report Released Date/Time: Sep 20, 2024 04:29 PM Reporting Lab: [facility] [address] [place] [address] Performing Lab: [address] [address] VITAMIN D, 25-HYDROXY 23.7 ng/mL L 30-96 Sep 22, 2024 11:30 AM [facility] MICRAL/CREAT PROFILE (STL) URINE Spec imen Type: URINE No comment entered. Ordering Provider: STEVEN SCHMIDT Report Released Date/Time: Sep 20, 2024 04:29 PM Reporting Lab: [facility] [address] [place] [address] Performing Lab: [facility] [address] [place] [address] URINE ALBUMIN (PB-STL) 7.6 mg/L uACR (STL) [...] SHEA WINTER [facility] Radiology Reports: +/- 30 days of [...] 10:22 AM KNEE,RIGHT 3 VIEWS: LORETO SEO [id number] -1945 M Exm Date: SEP 28, 2024@10:22 Req Phys: STEVEN SCHMIDT Loc: [facility] PACT 3 PCP (Req'g Loc) Img Loc: -MAIN RADIOLOGY SUITE Service: Unknown [address] [address] (Case [id number] COMPLETE) KNEE,RIGHT 3 VIEWS (RAD Detailed) CPT:39140 Proc Modifiers : RIGHT, LATERAL, Stand AP, [place] Reason for Study: B knee pain Clinical History: Report Status: Verified Date Reported: SEP 29, 2024 Date Verified: SEP 29, 2024 Client Administrator E-Sig:/ES/ROBERTO RAWLS MD Report: 3 views COMPARISON: None No acute fracture or dislocation 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 Other: Popcorn like calcification in the central distal femur typical of enchondroma. Probable intra-articular loose bodies Impression: Tricompartmental osteoarthritis Primary Interpreting Staff: ROBERTO RAWLS MD, Radiologist (Client Administrator) /ROBERTO RAIN [facility] Sep 28, 2024 10:22 AM KNEE,LEFT, 3 VIEWS: LORETO SEO [id number] -1945 M Exm Date: SEP 28, 2024@10:22 Req Phys: STEVEN SCHMIDT Loc: [facility] PACT 3 PCP (Req'g Loc) Img Loc: -MAIN RADIOLOGY SUITE Service: Unknown [address] [address] (Case [id number] COMPLETE) KNEE,LEFT, 3 VIEWS (RAD Detailed) CPT:13936 Proc Modifiers : LEFT, LATERAL, Stand AP, [place] Reason for Study: B knee pain Clinical History: Report Status: Verified Date Reported: SEP 29, 2024 Date Verified: SEP 29, 2024 Client Administrator E-Sig:/ES/ROBERTO RAWLS MD Report: 3 views COMPARISON: None No acute fracture or dislocation 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 Other: Large intra-articular loose bodies Impression: Tricompartmental osteoarthritis Primary Interpreting Staff: ROBERTO RAWLS MD, Radiologist (Client Administrator) /ROBERTO RAIN [facility] Encounter Notes: All associated encounter notes This section contains the clinical notes associated to the Encounter. Date/Time Encounter Note(s) Provider Source Sep 23, 2024 10:30 AM CARE COORDINATION HOME TELEHEALTH VIDEO VISIT NOTE: LOCAL TITLE: GEROFIT VVC SUPERVISED EXERCISE NOTE [facility] STANDARD TITLE: CARE COORDINATION HOME TELEHEALTH VIDEO VISIT NO DATE OF NOTE: SEP 23, 2024@10:30 ENTRY DATE: SEP 23, 2024@11:17:34 AUTHOR: MI WINTER EXP COSIGNER: URGENCY: STATUS: COMPLETED Gerofit Telehealth Remote Supervised Exercise Note Provided informed consent to receive treatment via Telehealth. [place] mailed and has been made verbally aware of [facility] Group [place] practices. participated remotely in the Gerofit exercise program today through [employer]. Activities were focused on progression of their individual exercise prescription (cardiorespiratory fitness training, strength training, etc.) and group based exercise sessions to include, but not limited to: flexibility training, balance training & functional circuit training. Exercise class was instructed by Monie Andrea and Mi Winter observed class for safety [...] Total Duration (minutes) for session: 90 Address: [address] [facility]; [address] [place] [address] [place] [id number] Contact Information: , Rosemary Seo [phone] /es/ Mi PATEL Electrical Engineering Technologist Signed: 09/23/2024 11:32 MI WINTER [facility]
--- OUTSIDE RECORDS SUMMARY | 2025-01-21 13:02 | XMS_ITS | Encounter Summary ---
Author Name [place] Organization [place] Address [address] [place] [address] Care Team Providers Care Community Pharmacist Name Role Phone KARON GARCIA Primary Care [...] B EXC) MAXIMO PALMA Jul 22, 2023 [id number] GABBIRUSSELL PATIENT AETNA PREFERRED PROVIDER ORGANIZAT ION (PPO) MAXIMO PALMA Apr 22, 2023 [id number] [phone] RUSSELL SEO PATIENT AETNA PREFERRED PROVIDER ORGANIZAT ION (PPO) MAXIMO PALMA Jun 23, 2014 [id number] GABBI,RUSSELL MARTEL PATIENT AETNA PHARMACY PRESCRIPT ION NONE Feb 11, 2017 NONE [id number] RUSSELL SEO PATIENT AETNA PHARMACY PRESCRIPT ION NONE Feb 11, 2017 NONE [id number] RUSSELL SEO PATIENT AETNA RX PRESCRIPT ION RX PLAN Jun 23, 2021 [id number] RUSSELL SEO PATIENT AETNA RX PRESCRIPT ION RX PLAN Jun 23, 2021 [id number] RUSSELL SEO PATIENT AETNA RX PRESCRIPT ION FEHBP Jun 23, 2014 [id number] [phone] RUSSELL SEO PATIENT AETNA [facility] PREFERRED PROVIDER ORGANIZAT ION (PPO) MAXIMO PALMA Jun 23, 2014 [id number] RUSSELL SEO PATIENT MEDICARE (WNR) MEDICARE (M) PART B May 23, 2008 PART B [id number] RUSSELL SEO PATIENT MEDICARE (WNR) MEDICARE (M) PART B May 23, 2008 PART B [id number] RUSSELL SEO PATIENT MEDICARE (WNR) MEDICARE (M) PART A Apr 23, 2008 PART A [id number] RUSSELL SEO PATIENT MEDICARE (WNR) MEDICARE (M) PART A Apr 23, 2008 PART A [id number] [phone] RUSSELL SEO PATIENT MEDICARE (WNR) MEDICARE () PART A Apr 23, 2008 PART A [id number] [phone] RUSSELL SEO PATIENT MEDICARE (WNR) MEDICARE (M) PART B Apr 23, 2008 PART B [id number] [phone] RUSSELL SEO PATIENT Selected Encounter This section includes the information on record at [place] for the Encounter. Date/Time Encounter Type Encounter Description Reason Pro vider Source Nov 29, 2024 07:43 AM Outpatient Encounter COMMUNITY CARE CONSULT IHE Encounter Template Text not used by [facility] Plan of Treatment: Future Appointments (+ 6 months) and Future Tests (+/- 45 days) The Plan of Treatment section includes future care activities for the patient from all [place] [facility]. This section includes future appointments and future orders which are active, pending or scheduled. Future Appointments This section includes appointments that were scheduled to occur 6 months from the date of the Encounter, up to a maximum of 20 appointments. The data comes from all [facility]. Appointment Date/Time Appointment Type Appointme nt Facility Name Dec 07, 2024 11:00 AM AMBULATORY - MEDICINE [facility] Dec 27, 2024 10:30 AM AMBULATORY - MEDICINE [facility] Jan 07, 2025 08:00 AM AMBULATORY - NONE . [facility] Feb 17, 2025 01:00 PM AMBULATORY - SURGERY [facility] Mar 24, 2025 02:30 PM AMBULATORY - MEDICINE [facility] Active, Pending, and Scheduled Orders This section includes a listing of several types of active, pending, and scheduled orders, including clinic medications orders, diagnostic test orders, procedure orders and consult orders; where the start date of the order is 45 days before the date of the Encounter or 45 days after the date of theEncounter. The data comes from all [facility]. Test Date/Time Test Type Test Details Facility Name Dec 14, 2024 01:30 PM Consult Order COMMUNITY CARE-GEC SKILLED HOME CARE [facility] Jan 13, 2025 11:32 AM Consult Order PROSTHETIC S REQUEST - COMMUNITY CARE [facility] Advance Directives: All historical and current Section Date Range: From patient's date of to the date document was created. This section includes ALL of a patient's completed or amended [place] Advance and Rescinded Directives. The entries below indicate that a directive exists for the patient, but an actual copy is not included with this document. The data comes from all [facility]. Date Advance Directives Provider Source Jan 14, 2022 ADVANCE DIRECTIVE DISCUSSION SHEA WINTER [facility] Encounter Notes: All associated encounter notes This section contains the clinical notes associated to the Encounter. Date/Time Encounter Note(s) Provider Source Nov 29, 2024 07:43 AM LETTERS: LOCAL TITLE: COMMUNITY CARE-REQUEST FOR SERVICES (RFS) LETTER ST STANDARD TITLE: LETTERS DATE OF NOTE: NOV 29, 2024@07:43 ENTRY DATE: NOV 29, 2024@07:43:57 AUTHOR: DAVID BRIDGES EXP COSIGNER: URGENCY: STATUS: COMPLETED [facility] [address] [place] [address] Dr Yayo Degroot [address] [place] [phone] Dear Provider, Information: Patient Name: LORETO SEO Date of : Apr [facility] has received the request DME (CPM) from you for services that were not originally authorized in the [facility] Administration for this . Upon review, the following determination has been made: Service has been approved. Should you have questions, please contact us at [phone] to speak with a patient director of field service. As a reminder, if applicable, return medical records within 30 days for routine services. Sincerely, Sincerely, DAVID BRIDGES,RN MSN REGISTERED NURSE DAVID BRIDGES [facility]
--- OUTSIDE RECORDS SUMMARY | 2025-01-21 13:03 | XMS_ITS | Encounter Summary ---
Author Name [place] Address [address] [place] [address] Care Team Providers Care Associate Loan Officer Name Role Phone KARON GARCIA Primary [...] B EXC) MAXIMO PALMA Jul 22, 2023 [id number] [phone] GABBIRUSSELL RUSHTrudy PATIENT AETNA PREFERRED PROVIDER ORGANIZAT ION (PPO) MAXIMO PALMA Apr 22, 2023 [id number] GABBIRUSSELL RUSHTrudy PATIENT AETNA PREFERRED PROVIDER ORGANIZAT ION (PPO) MAXIMO PALMA Jun 23, 2014 [id number] RUSSELL SEOTrudy PATIENT AETNA PHARMACY PRESCRIPT ION NONE Feb 11, 2017 NONE [id number] RUSSELL SEO PATIENT AETNA PHARMACY PRESCRIPT ION NONE Feb 11, 2017 NONE [id number] RUSSELL SEO PATIENT AETNA RX PRESCRIPT ION RX PLAN Jun 23, 2021 [id number] RUSSELL SEO PATIENT AETNA RX PRESCRIPT ION RX PLAN Jun 23, 2021 [id number] RUSSELL SEO PATIENT AETNA RX PRESCRIPT ION FEHBP Jun 23, 2014 [id number] [phone] RUSSELL SEO PATIENT AETNA [facility] PREFERRED PROVIDER ORGANIZAT ION (PPO) MAXIMO PALMA Jun 23, 2014 [id number] RUSSELL SEO PATIENT MEDICARE (WNR) MEDICARE () PART B May 23, 2008 PART B [id number] RUSSELL SEO PATIENT MEDICARE (WNR) MEDICARE () PART B May 23, 2008 PART B [id number] RUSSELL SEOD PATIENT MEDICARE (WNR) MEDICARE () PART A Apr 23, 2008 PART A [id number] RUSSELL SEO PATIENT MEDICARE (WNR) MEDICARE () PART A Apr 23, 2008 PART A [id number] RUSSELL SEO PATIENT MEDICARE (WNR) MEDICARE () PART A Apr 23, 2008 PART A [id number] [phone] RUSSELL SEOD PATIENT MEDICARE (WNR) MEDICARE () PART B Apr 23, 2008 PART B [id number] [phone] RUSSELL SEO PATIENT Selected Encounter This section includes the information on record at [place] for the Encounter. Date/Time Encounter Type Encounter Description Reason Provider Source Feb 09, 2024 10:30 AM EXERCISE CLASS HEALTH/WELLBEING [facility] ICD-10-CM Z72.3 Lack of physical exercise JOSE ANGEL LOVE Encounter Template Text not used by [place] Assessments - Encounter Diagnoses This section includes the primary and secondary diagnoses documented for the Encounter. Date/Time Primary/Secondary Diagnosis Diagnosis Name Provider Source Feb 18, 2024 09:30 AM PRIMARY Lack of physical exercise MIRIAM ARCHER [facility] Plan of Treatment: Future Appointments (+ 6 months) and Future Tests (+/- 45 days) The Plan of Treatment section includes future care activities for the patient from all [place] [facility]. This section includes future appointments and future orders which are active, pending or scheduled. Future Appointments This section includes appointments that were scheduled to occur 6 months from the date of the Encounter, up to a maximum of 20 appointments. The data comes from all [facility]. Appointment Date/Time Appointment Type Appointme nt Facility Name Feb 24, 2024 10:00 AM AMBULATORY - SURGERY [facility] Feb 25, 2024 02:30 PM AMBULATORY - PSYCHIATRY [facility] Mar 01, 2024 10:30 AM AMBULATORY - SURGERY [facility] Mar 26, 2024 10:30 AM AMBULATORY - MEDICINE [facility] Apr 12, 2024 01:00 PM AMBULATORY - SURGERY [facility] Apr 14, 2024 02:00 PM AMBULATORY - MEDICINE [facility] May 06, 2024 11:00 AM AMBULATORY - MEDICINE [facility] May 10, 2024 06:00 AM AMBULATORY - NONE [facility] May 12, 2024 01:00 PM AMBULATORY - MEDICINE [facility] May 19, 2024 01:30 PM AMBULATORY - SURGERY [facility] May 31, 2024 10:00 AM [...] of theEncounter. The data comes from all [facility]. Test Date/Time Test Type Test Details Facility Name Mar 01, 2024 12:00 AM Laboratory - Blood Bank Order TYPE & SCREEN - LAB BLOOD SP [facility] Lab Results: +/- 30 days of the [...] Type Comment Mar 01, 2024 12:51 PM [facility] PT/INR NEW (ST-ND) PLASMA Specimen Type: PLASMA No comment entered. Ordering Provider: LEISA MATHIS Report Released Date/Time: Mar 01, 2024 12:16 PM Reporting Lab: [address] [address] Performing Lab: [address] [address] PROTIME 12.7 s H 9.4-12.5 INR VALUE 1.1 {INR} Mar 01, 2024 12:51 PM [facility] COMPREHENSIVE METABOLIC PANEL PLASMA Specimen Type: PLASMA Comment: No hemolysis noted. Ordering Provider: LEISA MATHIS Report Released Date/Time: Mar 01, 2024 12:16 PM Reporting Lab: [address] [address] Performing Lab: [address] [address] CREATININE 1.37 mg/dL H 0.7-1.3 UREA NITROGEN [...] >60 Mar 01, 2024 12:[address] [facility] CBC BLOOD Specimen Type: BLOOD No comment entered. Ordering Provider: LEISA MATHIS Report Released Date/Time: Mar 01, 2024 12:16 PM Reporting Lab: [address] [address] Performing Lab: [address] [address] WBC 9.4 10*3/uL 3.6-11.2 RBC 4.90 10*6/uL [...] 0.00-0. 20 Feb 05, 2024 01:14 PM [facility] GLUCOSE,BLOOD-poct (STL) BLOOD Specimen Type: BLOOD Comment: Test Performed by: [id number] Meter #: [id number] Ordering Provider: STEVEN SCHMIDT Report Released Date/Time: Feb 05, 2024 01:26 PM Reporting Lab: [address] [address] Performing Lab: [address] [address] GLUCOSE,BLOOD-poct (STL) 105 mg/dL H 72-99 Advance [...] ADVANCE DIRECTIVE DISCUSSION SHEA WINTER [facility] Radiology Reports: +/- 30 days of [...] comes from all [place] treatment facilities. Date/Time Radiology Report Provider Source Mar 01, 2024 01:21 PM CHEST X-RAY, 2 VIEWS: GABBILORETO ALON [id number] -1945 M Exm Date: MAR 01, 2024@13:21 Req Phys: ALY GO Loc: [facility]GEN SURG HEPATOBILIARY (Req Img Loc: [facility]MAIN RADIOLOGY SUITE Service: [address] [address] (Case [id number] COMPLETE) CHEST X-RAY, 2 VIEWS (RAD Detailed) CPT:08007 Reason for Study: preop Clinical History: Report Status: Verified Date Reported: MAR 01, 2024 Date Verified: MAR 01, 2024 Quality Consultant E-Sig:/ES/Christopher Dumont MD. FACR. Report: History: [...] Interpreting Staff: Christopher Dumont MD. FACR, Neuroradiologist (Quality Consultant) /CHRISTOPHER BENNETT [facility] Feb 05, 2024 02:47 PM OBSTRUCTIVE SERIES: LORETO SEO [id number] -1945 M Exm Date: FEB 05, 2024@14:47 Req Phys: NELLY LIZARRAGA Pat Loc: -GI/ENDO LAB ANESTHESIA2 (Re Img Loc: -MAIN RADIOLOGY SUITE Service: [facility], [address] [place] [address] (Case [id number] COMPLETE) OBSTRUCTIVE SERIES (RAD Detailed) CPT:14020 Reason for Study: localize endoscopic clip, placed at lumenal defect, GB fistula? Clinical History: Report Status: Verified Date Reported: FEB 06, 2024 Date Verified: FEB 06, 2024 Quality Consultant E-Sig:/ES/ALEX DE ANDA MD Report: Case [...] DE ANDA MD, Staff Physician - Radiologist (Quality Consultant) /ALEX BROWNING [facility] Encounter Notes: All associated encounter notes This section contains the clinical notes associated to the Encounter. Date/Time Encounter Note(s) Provider Source Feb 09, 2024 10:30 AM CARE COORDINATION HOME TELEHEALTH VIDEO VISIT NOTE: LOCAL TITLE: GEROFIT VVC SUPERVISED EXERCISE NOTE ST STANDARD TITLE: CARE COORDINATION HOME TELEHEALTH VIDEO VISIT NO DATE OF NOTE: FEB 09, 2024@10:30 ENTRY DATE: FEB 09, 2024@11:27:38 AUTHOR: MIRIAM ARCHER EXP COSIGNER: URGENCY: STATUS: COMPLETED Gerofit Telehealth Remote Supervised Exercise Note [place] Provided informed consent to receive treatment via Telehealth. mailed and has been made verbally aware of [facility] [place] practices.[place] participated remotely in the Gerofit exercise program today through [place] Virtual Registered Radiation Therapist. Activities were focused on progression of their individual exercise prescription (cardiorespiratory fitness training, strength training, etc.) and group based exercise sessions to include, but not limited to: flexibility training, balance training & functional circuit training. Chon Love PT was the instructor for the duration of class. Exercise participation was supervised remotely by Miriam Archer PT and Mi Winter PTA. Mi Winter also assisted instruction for chair exercises. Any questions/concerns were addressed with the patient. Modifications were made to programming as appropriate to suit Veterans individual needs, preferences, and whole health concerns. Total Duration (minutes) for session: 90 Address: [address] [place] [address] [place] [address] Contact Information: , Rosemary Seo [phone] /es/ MIRIAM ARCHER PT, DPT, OCS TELE PAIN PHYSICAL THERAPIST Signed: 02/09/2024 12:04 Receipt Acknowledged By: 02/09/2024 14:49 /es/ Mi PATEL Meat Boner 02/10/2024 05:49 /es/ JOSE ANGEL LOVE PHYSICAL THERAPIST, DPT, MIRIAM SANTOS [facility]
--- OUTSIDE RECORDS SUMMARY | 2025-01-21 13:03 | XMS_ITS | Encounter Summary ---
Author Name [place] Address [address] [place] [address] Care Team Providers Care Digital Marketing Assistant Name Role Phone KARON GARCIA Primary Care [...] B EXC) MAXIMO PALMA Jul 22, 2023 [id number] GABBI,GE DELONTE PATIENT AETNA PREFERRED PROVIDER ORGANIZAT ION (PPO) MAXIMO PALMA Apr 22, 2023 [id number] [phone] GABBIRUSSELL RUSHTrudy PATIENT AETNA PREFERRED PROVIDER ORGANIZAT ION (PPO) MAXIMO PALMA Jun 23, 2014 [id number] RUSSELL SEOTrudy PATIENT AETNA PHARMACY PRESCRIPT ION NONE Feb 11, 2017 NONE [id number] RUSSELL SEO PATIENT AETNA PHARMACY PRESCRIPT ION NONE Feb 11, 2017 NONE [id number] RUSSELL SEO PATIENT AETNA RX PRESCRIPT ION RX PLAN Jun 23, 2021 [id number] RUSSELL SEO PATIENT AETNA RX PRESCRIPT ION RX PLAN Jun 23, 2021 [id number] RUSSELL SEO PATIENT AETNA RX PRESCRIPT ION FEHBP Jun 23, 2014 [id number] RUSSELL SEO PATIENT AETNA [facility] PREFERRED PROVIDER ORGANIZAT ION (PPO) MAXIMO PALMA Jun 23, 2014 [id number] RUSSELL SEO PATIENT MEDICARE (WNR) MEDICARE () PART B May 23, 2008 PART B [id number] RUSSELL SEO PATIENT MEDICARE (WNR) MEDICARE () PART B May 23, 2008 PART B [id number] RUSSELL SEO PATIENT MEDICARE (WNR) MEDICARE () PART A Apr 23, 2008 PART A [id number] RUSSELL SEO PATIENT MEDICARE (WNR) MEDICARE () PART A Apr 23, 2008 PART A [id number] RUSSELL SEO PATIENT MEDICARE (WNR) MEDICARE () PART A Apr 23, 2008 PART A [id number] [phone] RUSSELL SEO PATIENT MEDICARE (WNR) MEDICARE () PART B Apr 23, 2008 PART B [id number] [phone] RUSSELL SEO PATIENT Selected Encounter This section includes the information on record at [place] for the Encounter. Date/Time Encounter Type Encounter Description Reason Provider Source Aug 05, 2024 10:30 AM PT EDUCATION NOC GROUP HEALTH/WELLBEING [facility] ICD-10-CM Z72.3 Lack of physical exercise JESSICA CARDENAS Encounter Template Text not used by [place] Assessments - Encounter Diagnoses This section includes the primary and secondary diagnoses documented for the Encounter. Date/Time Primary/Secondary Diagnosis Diagnosis Name Provider Source Aug 17, 2024 03:19 PM PRIMARY Lack of physical exercise MI WINTER [facility] Plan of Treatment: Future Appointments [...] 20 appointments. The data comes from all [place] treatment facilities. Appointment Date/Time Appointment Type Appointme nt Facility Name Aug 18, 2024 11:41 AM AMBULATORY - MEDICINE EMERITA [facility]. [facility] Aug 19, 2024 08:30 AM AMBULATORY - NONE ROMERO Daniel. [facility] Sep 22, 2024 11:30 AM AMBULATORY - MEDICINE [facility] November 09, 2024 01:30 PM AMBULATORY - SURGERY . [facility] Dec 07, 2024 11:00 AM AMBULATORY - MEDICINE [facility] Dec 27, 2024 10:30 AM AMBULATORY - MEDICINE [facility] Jan 07, 2025 08:00 AM AMBULATORY - NONE [facility] Advance Directives: All historical and current Section Date Range: From patient's date of to the date document was created. This section includes ALL of a patient's completed or amended [place] Advance and Rescinded Directives. The entries below indicate that a directive exists for the patient, but an actual copy is not included with this document. The data comes from all [facility]. Date Advance Directives Provider Source Jan 14, 2022 ADVANCE DIRECTIVE DISCUSSION SHEA WINTER [facility] Encounter Notes: All associated encounter notes This section contains the clinical notes associated to the Encounter. Date/Time Encounter Note(s) Provider Source Aug 05, 2024 10:30 AM CARE COORDINATION HOME TELEHEALTH VIDEO VISIT NOTE: LOCAL TITLE: GEROFIT VVC SUPERVISED EXERCISE NOTE ST STANDARD TITLE: CARE COORDINATION HOME TELEHEALTH VIDEO VISIT NO DATE OF NOTE: AUG 05, 2024@10:30 ENTRY DATE: AUG 05, 2024@11:10:42 AUTHOR: MI WINTER EXP COSIGNER: URGENCY: STATUS: COMPLETED Gerofit Telehealth Remote Supervised Exercise Note [place] Provided informed consent to receive treatment via Telehealth. mailed and has been made verbally aware of [facility] [place] practices. participated remotely in the Gerofit exercise program today through WebEx. Activities were focused on progression of their individual exercise prescription (cardiorespiratory fitness training, strength training, etc.) and group based exercise sessions to include, but not limited to: flexibility training, balance training & functional circuit training. Exercise class was instructed by Monie Cardenas and Mi Winter observed class for safety [...] Duration (minutes) for session: 90 Address: [address] [place] [address] [place] [address] Contact Information: , Rosemary Seo [phone] /es/ Mi PATEL Senior Managing Director Signed: 08/05/2024 11:23 MI WINTER [facility]
--- OUTSIDE RECORDS SUMMARY | 2025-01-21 13:03 | XMS_ITS | Encounter Summary ---
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 Role Phone KARON GARCIA Primary Care Provider KENIA Mccabe Primary Care Provider UnavailSTEVEN eHlms Primary Care Provider Haseeb brizuela Insurance Providers: [...] B EXC) MAXIMO PALMA Jul 22, 2023 [id number] [phone] GABBI,GE DELONTE PATIENT [employer] PREFERRED PROVIDER ORGANIZAT ION (PPO) MAXIMO PALMA Apr 22, 2023 [id number] RUSSELL SEOTrudy PATIENT [employer]ET[employer] PREFERRED PROVIDER ORGANIZAT ION (PPO) MAXIMO PALMA Jun 23, 2014 [id number] [phone] RUSSELL SEOTrudy PATIENT AETNA PHARMACY PRESCRIPT ION NONE Feb 11, 2017 NONE [id number] [phone] RUSSELL SEO PATIENT AETNA PHARMACY PRESCRIPT ION NONE Feb 11, 2017 NONE [id number] RUSSELL SEOD PATIENT AETNA RX PRESCRIPT ION RX PLAN Jun 23, 2021 [id number] RUSSELL SEOD PATIENT AETNA RX PRESCRIPT ION RX PLAN Jun 23, 2021 [id number] RUSSELL SEO PATIENT AETNA RX PRESCRIPT ION FEHBP Jun 23, 2014 [id number] RUSSELL SEO PATIENT AETNA [facility] PREFERRED PROVIDER ORGANIZAT ION (PPO) MAXIMO PALMA Jun 23, 2014 [id number] RUSSELL SEOD PATIENT MEDICARE (WNR) MEDICARE () PART B May 23, 2008 PART B [id number] [phone] RUSSELL SEOD PATIENT MEDICARE (WNR) MEDICARE () PART B May 23, 2008 PART B [id number] RUSSELL SEOD PATIENT MEDICARE (WNR) MEDICARE () PART A Apr 23, 2008 PART A [id number] [phone] RUSSELL SEOD PATIENT MEDICARE (WNR) MEDICARE () PART A Apr 23, 2008 PART A [id number] RUSSELL SEOD PATIENT MEDICARE (WNR) MEDICARE () PART A Apr 23, 2008 PART A [id number] [phone] RUSSELL SEOD PATIENT MEDICARE (WNR) MEDICARE () PART B Apr 23, 2008 PART B [id number] [phone] RUSSELL SEO PATIENT Selected Encounter This section includes the information on record at [place] for the Encounter. Date/Time Encounter Type Encounter Description Reason Provider Source May 10, 2024 06:00 AM REAGENT STRIP/BLOOD GLUCOSE PRE-SURG EVAL ICD-10-CM K80.20 Calculus of gallbladder w/o cholecystitis w/o obstruction BANDAR LONGORIA IHE Encounter Template Text not used by [place] Assessments - Encounter Diagnoses This section includes the primary and secondary diagnoses documented for the Encounter. Date/Time Primary/Secondary Diagnosis Diagnosis Name Provider Source May 21, 2024 08:59 AM PRIMARY Calculus of gallbladder w/o cholecystitis w/o obstruction BANDAR LONGORIA [facility] Plan of Treatment: Future Appointments (+ 6 months) and Future Tests (+/- 45 days) The Plan of Treatment section includes future care activities for the patient [facility] [place] [facility] This section includes future appointments and future orders which are active, pending or scheduled. Future Appointments This section includes appointments that were scheduled to occur 6 months from the date of the Encounter, up to a maximum of 20 appointments. The data comes from all [facility]. Appointment Date/Time Appointment Type Appointme nt Facility Name May 12, 2024 01:00 PM AMBULATORY - MEDICINE [facility] May 19, 2024 01:30 PM AMBULATORY - SURGERY [facility] May 31, 2024 10:00 AM AMBULATORY - NONE [facility] Aug 18, 2024 11:41 AM AMBULATORY - MEDICINE [facility] Aug 19, 2024 08:30 AM AMBULATORY - NONE [facility] Sep 22, 2024 11:30 AM AMBULATORY - MEDICINE [facility] Active, Pending, and Scheduled Orders This section includes a listing of several types of active, pending, and scheduled orders, including clinic medications orders, diagnostic test orders, procedure orders and consult orders; where the start date of the order is 45 days before the date of the Encounter or 45 days after the date of theEncounter. The data comes from all [facility]. Test Date/Time Test Type Test Details Facility Name Mar 26, 2024 12:00 AM Laboratory - Chemi stry Order CYSTATIN C EGFR PANELS (STL-PB-MA) GREEN LI/HEP BLD/PLAS PLASMA SP [facility] Lab Results: +/- 30 days of the encounter This section includes the Chemistry and Hematology Lab Results on record with [place] for the patient. Radiology Reports and Pathology Reports are provided separately, in subsequent sections. Lab Results This section contains the Chemistry/Hematology Results that were resulted 30 days before or 30 daysafter the date of the Encounter. Date/Time Source Result Type Result - Unit Interpretation Reference Range Specimen Type Comment May 11, 2024 05:42 AM [facility] GLUCOSE,BLOOD-poct (STL) BLOOD Specimen Type: BLOOD Comment: Test Performed by: [id number] Meter #: [id number] Ordering Provider: DARY MORRISON Report Released Date/Time: May 11, 2024 06:36 AM Reporting Lab: [address] [id number] Performing Lab: [address] [address] GLUCOSE,BLOOD-poct (STL) 154 mg/dL H 72-99 May 11, 2024 12:40 AM [facility] BASIC METABOLIC PANEL PLASMA Specimen Type: PL ASMA Comment: No hemolysis noted. Ordering Provider: EDDIE HAYES Report Released Date/Time: May 10, 2024 11:48 PM Reporting Lab: [address] [address] Performing Lab: [address] [address] CREATININE 1.14 mg/dL 0.7-1.3 UREA NITROGEN 17.3 mg/dL 9.0-25.0 GLUCOSE 236 mg/dL H 72-99 SODIUM 136 meq/L 136-145 POTASSIUM 4.3 meq/L 3.5-5 CHLORIDE 105 meq/L 98-107 CARBON DIOXIDE 21 meq/L L 22-31 CALCIUM 9.2 mg/dL 8.4-10.4 EGFR (CKD-EPI 2020) 64.6 >60 May 11, 2024 12:40 AM [facility] CBC BLOOD Specimen Type: BLOOD No comment entered. Ordering Provider: EDDIE HAYES Report Released Date/Time: May 10, 2024 11:48 PM Reporting Lab: [address] [address] Performing Lab: [address] [address] WBC 13.3 10*3/uL H 3.6-11.2 RBC 4.49 [...] 0.00-0. 20 May 10, 2024 08:21 PM [facility] GLUCOSE,BLOOD-poct (STL) BLOOD Specimen Type: BLOOD Comment: Test Performed by: [id number] Meter #: [id number] Ordering Provider: LORELEI MORRISON Report Released Date/Time: May 10, 2024 09:18 PM Reporting Lab: [address] [address] Performing Lab: [address] [address] GLUCOSE,BLOOD-poct (STL) 192 mg/dL H 72-99 May 10, 2024 04:13 PM [facility] GLUCOSE,BLOOD-poct (STL) BLOOD Specimen Type: BLOOD Comment: Test Performed by: [id number] Meter #: [id number] Ordering Provider: LORELEI MORRISON Report Released Date/Time: May 10, 2024 05:13 PM Reporting Lab: [address] [address] Performing Lab: [address] [place] [address] GLUCOSE,BLOOD-poct (STL) 156 mg/dL H 72-99 May 10, 2024 12:47 PM [facility] MRSA SURVL NARES DNA NARES Specimen [...] May 10, 2024 12:47 PM Reporting Lab: [address] [address] Performing Lab: [address] [address] MRSA SURVL NARES DNA Negative Negative May 10, 2024 06:30 AM [facility] GLUCOSE,BLOOD-poct (STL) BLOOD Specimen Type: BLOOD Comment: Test Performed by: [id number] Meter #: [id number] Ordering Provider: BANDAR LONGORIA Report Released Date/Time: May 10, 2024 06:43 AM Reporting Lab: [address] [address] Performing Lab: [address] [address] GLUCOSE,BLOOD-poct (STL) 174 mg/dL H 72-99 Vital Signs: All taken on the encounter date This section contains inpatient and outpatient Vital Signs collected on the date of the Encounter. Date/Time Temperature Pulse Blood Pressure Respiratory Rate SP02 Pain Height Weight Body Mass Index Source May 10, 2024 08:19 PM 98.5 107 153/79 18 93 0 [facility] May 10, 2024 06:05 PM 97.5 105 149/79 18 94 [facility] May 10, 2024 01:23 PM 0 [facility] May 10, 2024 12:43 PM 97.5 84 159/73 18 96 [facility] May 10, 2024 06:30 AM 97.5 79 130/61 19 99 0 72 222 30 [facility] Advance Directives: All historical and [...] the Encounter. The data comes from all [place] treatment facilities. Date/Time Pathology Report Provider Source [...] Performing Laboratory: Surgical Pathology Report Performed By: [address] [id number] [address] [place] [id number] $FTR - - - - - - [...] - - LORETO SEO STANDARD FORM 515 ID:[id number] SEX:M :1945 AGE: 79 LOC:[facility]EE PCP: Lorelei Morrison MD /leobardo/ CONCETTA GOMEZ Pathologist Signed: 05/11/2024 12:18 CONCETTA GOMEZ [facility] Encounter Notes: All associated encounter notes This section contains the clinical notes associated to the Encounter. Date/Time Encounter Note(s) Provider Source May 10, 2024 07:02 AM NURSING NOTE: LOCAL TITLE: [facility] NSG IV INSERTION AND MAINTENANCE STANDARD TITLE: NURSING NOTE DATE OF NOTE: MAY 10, 2024@07:02 ENTRY DATE: MAY 10, 2024@07:02:08 AUTHOR: BANDAR LONGORIA EXP COSIGNER: URGENCY: STATUS: COMPLETED Version 2.2 Charting in accordance with [place] APPROVED [place] STANDARD (NJAES) ACUTE INPATIENT/REHABILITATION NURSING ADMISSION SCREENING, ASSESSMENT, AND STANDARDS OF CARE ======== IV Line Insertion and Maintenance ======== ======== Peripheral IV ======== Line #1: Insertion: Date/Time: Apr@06:30 Inserted by (name): Bandar Longoria RN Location: Left, Wrist Gauge: / BANDAR LONGORIA ASN RN REGISTERED NURSE Signed: 05/10/2024 07:02 BANDAR LONGORIA [facility] May 10, 2024 06:09 AM SURGERY NURSING SHAMAR VALDEZ NOTE: LOCAL TITLE: [facility] PREOPERATIVE-PREPROCEDURAL STL STANDARD TITLE: SURGERY NURSING PROCEDURE NOTE DATE OF NOTE: MAY 10, 2024@06:09 ENTRY DATE: MAY 10, 2024@06:10:05 AUTHOR: BANDAR LONGORIA EXP COSIGNER: URGENCY: STATUS: COMPLETED [facility] PREOPERATIVE-PREPROCEDURAL STL Has ADDENDA AETC PRE-OPERATIVE/PRE-PROCEDURAL ASSESSMENT TEST Procedure:lap poss open arpita, poss colon gallbadder fistula takedown Service:surg 2 ARRIVAL TIME: Apr@06:00 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 No History of cancer diagnosis? Yes If yes, comment:skin History of radiation therapy to planned surgical field(s)?No History of sleep apnes?No Vision Aids Eyeglasses Dentures:Yes If yes: Upper Lower Comment:left at home Hearing Aides:Yes Comment:bilateral Ambulatory Aides:No Personal Belongings Secured in locker. 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 No Pain No Do you have a history of tobacco use?No Do you have an Advance Directive?No Nursing care plan STANDARD OF CARE / PRACTICE INITIAL NURSING DIAGNOSIS: AETC Alteration in Comfort and Knowledge Related to: Invasive procedure: lap nolbe poss open fistu EXPECTED OUTCOMES: Patient Will: X Verbalize an understanding of procedure. Target Date:Apr X Verbalize effective use of pain medication. Target Date:Apr X Be free of complications post-procedure. Target Date:Apr X Verbalize knowledge of discharge instructions and follow-up care. Target Date:Apr NURSING INTERVENTIONS: PHYSIOLOGICAL 1. Assess and monitor vital signs and respiratory status pre and post-procedure. INITIATED 2. Assess need for PT/OT instruction prior to procedure (i.e.,crutch training). NOT APPLICABLE 3. Assess incision site/dressing for drainage, bleeding, hematoma, and site pain post-procedure. INITIATED 4. Initiate appropriate wound care post-procedure. INITIATED 5. Maintain IV access and parenteral infusions pre and post- procedure. INITIATED 6. Assess post-procedure for adequate oral intake, urinary elimination, and return of prior motor function. INITIATED COMFORT 7. Monitor for pain (location, intensity, frequency and precipitating factors). INITIATED 8. Administer, evaluate and document the effectiveness of pain medication. INITIATED SAFETY 9. Keep call light within reach and reinforce calling for assistance as needed. INITIATED 10. Explain and reinforce smoking policy. INITIATED 11. Other: NOT APPLICABLE INFECTION CONTROL 12. Maintain Standard Precautions and explain need to patient/significant others. INITIATED EQUIPMENT NEEDS 13. Assess and provide equipment/supplies required to provide safe patient care. INITIATED KNOWLEDGE (PATIENT EDUCATION) 14. Provide teaching specific to patient's needs: X NPO status X IV therapy X Pain management Early mobility Turning, coughing and deep breathing Incentive spirometer HOMA hose Other: INITIATED 15. Instruct patient/significant other on homecare requirements. INITIATED 16. Signs and symptoms to report to health care team. INITIATED PSYCHOSOCIAL / FUNCTIONAL 17. Encourage feedback related to patient's expectations/concerns related to procedure. INITIATED 18. Assess patient/significant other's ability to manage and comply with discharge instructions. INITIATED DISCHARGE PLANNING 19. Assure appropriate transportation available upon discharge. INITIATED 20. Encourage patient to keep all follow-up clinic appointments. INITIATED 21. Continue discharge planning/aftercare with patient/significant other using interdisciplinary approach: X Physician/Service: surg 2 PT OT Community Support Groups: Other: INITIATED 22. Other interventions specific to patient: INITIATED THE ABOVE EXPECTED OUTCOMES (GOALS) HAVE BEEN MUTUALLY SET WITH: Patient Nursing Diagnosis: Anxiety Goals/Outcomes: Identifies, verbalizes and demonstrates methods to control anxiety Interventions: Monitor vital signs Nursing Diagnosis: Pain, Acute/Chronic Goals/Expected Outcomes: Patient verbalizes factors theat itensify pain and modifies behavior accordingly. Interventions Admiinister pharmacological agents as ordered/per control. Physician/Service: surg 2 PT OT Community Support Groups: Other: INITIATED Learning Assessment: - * This patient's learning ABILITIES, BARRIERS to learning, CULTURAL and ISLAM beliefs, and learning PREFERENCES were assessed. Following are findings of note: Patient reads well. 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 Adjustments made to address the identified barrier include: Patient has hearing aids available. LANGUAGE Patient reports that [place] is preferred language for healthcare. Patient has the following vision barrier(s) to consider when teaching: The following barrier has been identified: Adjustments made to address the identified barrier include: Assure patient has glasses/contacts for reading. /leobardo/ BANDAR VILLEGAS RN REGISTERED NURSE Signed: 05/10/2024 06:18 05/10/2024 ADDENDUM STATUS: COMPLETED 0736 passport to care complete, belongings are in locker, pt is late leaving for surgery related to family talking to pt and surgeon. transported to OR> /es/ BANDAR VILLEGAS RN REGISTERED NURSE Signed: 05/10/2024 07:37 BANDAR LONGORIA [facility]
--- OUTSIDE RECORDS SUMMARY | 2025-01-21 13:03 | XMS_ITS | Encounter Summary ---
Author Name [facility] Organization [facility] [place] Address [address] [place] [address] Care Team Providers Care Clinical Services Assistant Name Role Phone KARON GARCIA Primary Care Provider KENIA Mccabe Primary Care Provider UnavailSTEVNE Helms Primary Care Provider Unavailab brizuela Insurance [...] B EXC) MAXIMO PALMA Jul 22, 2023 [phone] GABBI,GE DELONTE PATIENT [employer] PREFERRED PROVIDER ORGANIZAT ION (PPO) MAXIMO PALMA Apr 22, 2023 [id number] [phone] GABBIRUSSELL RUSHTrudy PATIENT [employer] PREFERRED PROVIDER ORGANIZAT ION (PPO) MAXIMO PALMA Jun 23, 2014 [id number] RUSSELL SEO PATIENT [employer] PHARMACY PRESCRIPT ION NONE Feb 11, 2017 NONE [id number] RUSSELL SEO PATIENT [employer] PHARMACY PRESCRIPT ION NONE Feb 11, 2017 NONE [id number] RUSSELL SEOD PATIENT [employer] RX PRESCRIPT ION RX PLAN Jun 23, 2021 [id number] RUSSELL SEOD PATIENT [employer] RX PRESCRIPT ION RX PLAN Jun 23, 2021 [id number] RUSSELL SEO PATIENT [employer] RX PRESCRIPT ION FEHBP Jun 23, 2014 [id number] RUSSELL SEO PATIENT AETNA [facility] PREFERRED PROVIDER ORGANIZAT ION (PPO) MAXIMO PALMA Jun 23, 2014 [id number] RUSSELL SEOD PATIENT MEDICARE (WNR) MEDICARE () PART B May 23, 2008 PART B [id number] RUSSELL SEOD PATIENT MEDICARE (WNR) MEDICARE () PART B May 23, 2008 PART B [id number] RUSSELL SEOD PATIENT MEDICARE (WNR) MEDICARE () PART A Apr 23, 2008 PART A [id number] RUSSELL SEOD PATIENT MEDICARE (WNR) MEDICARE () PART A Apr 23, 2008 PART A [id number] RUSSELL SEOD PATIENT MEDICARE (WNR) MEDICARE () PART A Apr 23, 2008 PART A [id number] [phone] RUSSELL SEOD PATIENT MEDICARE (WNR) MEDICARE () PART B Apr 23, 2008 PART B [id number] [phone] RUSSELL SEO PATIENT Selected Encounter This section includes the information on record at [place] for the Encounter. Date/Time Encounter Type Encounter Description Reason Provider Source Feb 24, 2024 10:00 AM COMPRE OPH EXAM EST PT 1/> OPTOMETRY ICD-10-CM E11.9 Type 2 diabetes mellitus without complications MICHAEL PRINGLE Karel Encounter Template Text not used by [place] Assessments - Encounter Diagnoses This section includes the primary and secondary diagnoses documented for the Encounter. Date/Time Primary/Secondary Diagnosis Diagnosis Name Provider Source Mar 04, 2024 01:54 PM PRIMARY Type 2 diabetes mellitus without complications [facility] Mar 04, 2024 01:54 PM SECONDARY Macular cyst, hole, or pseudohole, right eye [facility] Mar 04, 2024 01:54 PM SECONDARY Presbyopia [facility] Mar 04, 2024 01:54 PM SECONDARY Presence of intraocular lens [facility] Mar 04, 2024 01:54 PM SECONDARY Puckering of macula, bilateral [facility] Plan of Treatment: Future Appointments (+ 6 months) and Future Tests (+/- 45 days) The Plan of Treatment section includes future care activities for the [facility] This section includes future appointments and future orders which are active, pending or scheduled. Future Appointments This section includes appointments that were scheduled to occur 6 months from the date of the Encounter, up to a maximum of 20 appointments. The data comes from all [place] treatment facilities. Appointment Date/Time Appointment Type Appointme nt Facility Name Feb 25, 2024 02:30 PM AMBULATORY - PSYCHIATRY [facility] Mar 01, 2024 10:30 AM AMBULATORY - SURGERY [facility] Mar 26, 2024 10:30 AM AMBULATORY - MEDICINE [facility] Apr 12, 2024 01:00 PM AMBULATORY - SURGERY [facility] Apr 14, 2024 02:00 PM AMBULATORY - MEDICINE [facility] May 06, 2024 11:00 AM AMBULATORY - MEDICINE [facility] May 10, 2024 06:00 AM AM[facility]ULATORY - N[facility] May 12, 2024 01:00 PM AMBULATORY - MEDICINE [facility] May 19, 2024 01:30 PM AMBULATORY - SURGERY [facility] May 31, 2024 10:00 AM AM[facility]UL[facility]ORY - NONE [facility] Aug 18, 2024 11:41 AM AMBULATORY - MEDICINE EMERITA Samuels [facility] Aug 19, 2024 08:30 AM AMBULATORY - NONE ROMERO Samuels [facility] Active, Pending, and Scheduled Orders This section includes a listing of several types of active, pending, and scheduled orders, including clinic medications orders, diagnostic test orders, procedure orders and consult orders; where the start date of the order is 45 days before the date of the Encounter or 45 days after the date of theEncounter. The data comes from all [place] treatment facilities. Test Date/Time Test Type Test Details Facility Name Mar 01, 2024 12:00 AM Laboratory - Blood Bank Order TYPE & SCREEN - LAB BLOOD SP [facility] Mar 26, 2024 12:00 AM Laboratory - Chemi stry Order CYSTATIN C EGFR PANELS (L-PB-MA) GREEN LI/HEP BLD/PLAS PLASMA [facility] Lab Results: +/- 30 days of the encounter This section includes the Chemistry and Hematology Lab Results on record with [place] for the patient. Radiology Reports and Pathology Reports are provided separately, in subsequent sections. Lab Results This section contains the Chemistry/Hematology Results that were resulted 30 days before or 30 daysafter the date of the Encounter. Date/Time Source Result Type Result - Unit Interpretation Reference Range Specimen Type Comment Mar 01, 2024 12:[address] [facility] PT/INR NEW ([facility]) PLASMA Specimen Type: PLASMA No comment entered. Ordering Provider: LEISA MATHIS Report Released Date/Time: Mar 01, 2024 12:16 PM Reporting Lab: [facility] [address] [facility] [address] Performing Lab: [place] [id number] [facility] [address] PROTIME 12.7 s H 9.4-12.5 INR VALUE 1.1 {INR} Mar 01, 2024 12:[address] [facility] COMPREHENSIVE METABOLIC PANEL PLASMA Specimen Type: PLASMA Comment: No hemolysis noted. Ordering Provider: LEISA MATHIS Report Released Date/Time: Mar 01, 2024 12:16 PM Reporting Lab: [facility] [address] [address] Performing Lab: [address] [address] CREATININE 1.37 mg/dL H 0.7-1.3 UREA NITROGEN [...] 52.2 >60 Mar 01, 2024 12:51 PM [facility] CBC BLOOD Specimen Type: BLOOD No comment entered. Ordering Provider: LEISA MATHIS Report Released Date/Time: Mar 01, 2024 12:16 PM Reporting Lab: [address] [address] Performing Lab: [address] [address] WBC 9.4 10*3/uL 3.6-11.2 RBC 4.90 10*6/uL [...] 0.00-0. 20 Feb 05, 2024 01:14 PM [facility] GLUCOSE,BLOOD-poct (STL) BLOOD Specimen Type: BLOOD Comment: Test Performed by: [id number] Meter #: [id number] Ordering Provider: STEVEN SCHMIDT Report Released Date/Time: Feb 05, 2024 01:26 PM Reporting Lab: [facility] [address] [facility] [address] Performing Lab: [facility] [address] [facility] [address] GLUCOSE,BLOOD-poct (STL) 105 mg/dL H 72-99 Advance [...] this document. The data comes from all [facility]. Date Advance Directives Provider Source Jan 14, 2022 ADVANCE DIRECTIVE DISCUSSION SHEA WINTER [facility] Radiology Reports: +/- 30 days of [...] 2024 01:21 PM CHEST X-RAY, 2 VIEWS: GABBILORETOLENORA [facility] [id number] -[id number] M Exm Date: MAR 01, 2024@13:21 Req Phys: ALY GO Loc: [facility] SURG HEPATOBILIARY (Req Img Loc: [facility] RADIOLOG[facility] SUITE Service: Unknown [facility] [address] [place] [address] (Case [id number] COMPLETE) CHEST X-RAY, 2 VIEWS (RAD Detailed) CPT:58469 Reason for Study: preop Clinical History: Report Status: Verified Date Reported: MAR 01, 2024 Date Verified: MAR 01, 2024 Financial Analysis Advisor E-Sig:/ES/Christopher Dumont MD. FACR. Report: History: preop. [...] Staff: Christopher Dumont MD. FACR, Neuroradiologist (Financial Analysis Advisor) /CHRISTOPHER BENNETT [facility] Feb 05, 2024 02:47 PM OBSTRUCTIVE SERIES: LORETO SEO [id number] -[id number] M Exm Date: FEB 05, 2024@14:47 Req Phys: NELLY LIZARRAGA Loc: -GI/ENDO LAB ANESTHESIA2 (Re Img Loc: [facility] RADIOLOGY SUITE Service: Unknown [facility] [address] [place] [address] (Case [id number] COMPLETE) OBSTRUCTIVE SERIES (RAD Detailed) CPT:73307 Reason for Study: localize endoscopic clip, placed at lumenal defect, GB fistula? Clinical History: Report Status: Verified Date Reported: FEB 06, 2024 Date Verified: FEB 06, 2024 Financial Analysis Advisor E-Sig:/ES/ALEX DE ANDA MD Report: Case #[id number]. [...] ANDA MD, Staff Physician - Radiologist (Financial Analysis Advisor) /ALEX BROWNING [facility] Encounter Notes: All associated encounter notes This section contains the clinical notes associated to the Encounter. Date/Time Encounter Note(s) Provider Source Feb 24, 2024 09:53 AM OPTOMETRY NOTE: LOCAL TITLE: OPTOMETRY NOTE STANDARD TITLE: OPTOMETRY NOTE DATE OF NOTE: FEB 24, 2024@09:53 ENTRY DATE: FEB 24, 2024@09:53:07 AUTHOR: MICHAEL PRINGLE EXP COSIGNER: URGENCY: STATUS: COMPLETED Last seen 03/05/23 Reason for visit: CC: 1. patient is happy with vision, and reports stability. 2. concern c DM last a1c 6.6 (down from 6.8) Ocular meds: None Ocular ROS: 1. 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 PVD OU 3. Diabetes without retinopathy 4. Pseudophakia OU 5. Macular pseudohole OD, ERM OU 6. 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) Cardiovascular ROS: no change from problem & medication lists CPRS Problem list, medications and allergies reviewed: CPRS Serology for Diabetes GLUCOSE 166 H mg/dL 09/24/2023 13:00 HGA1C 6.6 H % 09/24/2023 13:00 Cardiovascular BP: 155/68 (12/01/2023 10:41) Pulse: 86 (12/01/2023 10:41) Neuro: Orientation: Normal Psych: Mood/Affect: Normal Depression/suicide ideation: NO VISUAL ACUITY With correction Distance Visual Acuity OD 20/15 OS 20/15 Pupils PERRL OU (-)APD, very miotic <1mm pupil Confrontation: FTFC OU Extra-Ocular Muscles Full OU (-)pain (-)diplopia Externals/adnexa: Unremarkable OU Refraction: 03/05/23 OD +0.25-1.95a149 20/20 OS -0.25-1.90h974 20/20 Add: + 2.50 PAL c transitions Refraction: 02/24/24 OD +0.50-1.88i980 20/20 OS plano-1.67q185 20/20 Add: + 2.50 *pt shown hab vs updated mrx, pt preferred habitual SLIT LAMP EXAMINATION Lids/Lashes/Lacrimal No blepharitis OU, small inclusion cyst RLL Conjunctiva/Sclera White/quiet OU Cornea Clear OD, tr staining OS Ant Chamber 4/4 VH, Deep and quiet OU Iris Normal, (-)NVI OU Lens PCIOL centered and open OU, tr PCO fragment OS Intraocular Pressures (Goldmann) 1 gtt fluress Date OD OS Time 03/05/23 17 20 0956 *pt very apprehensive 02/24/24 15 17 1015 lid holding clarifier RETINAL EVALUATION 1 phenyleph 10%, 1 trop 1% OU DFE Dilated retinal exam Optic Nerve OD: 0.5 CDR Flat, pink, distinct (-)NVD, tilted, crescent OS: 0.5 CDR Flat, pink, distinct (-)NVD, tilted, crescent Vessels: 2/3 OU Macula: OD: Flat, intact (-)CSME, tr mottling/ERM OS: Flat, intact (-)CSME, diffuse 1-2+ ERM Posterior Pole: OD: (-)hemes (-)CWS (-)NVE OS: (-)hemes (-)CWS (-)NVE; small nevus,flat, even pigment inf-temp distal arcade Periphery: OD: (-)holes, tears, RDs 360 OS: (-)holes, tears, RDs 360; temp to temp-inf laser Vitreous: +PVD OU c vit synersis; large palacios ring OD isaac bollig, Optometry Campus Manager participated in the care of this under my supervision. I personally examined the patient and provided the following assessment and plan: Assessment/Plan 02/24/24 1. 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 Macular pseudohole OD, ERM OU BCVA 20/20 OD, OS mac MAR 2023 grossly stable to [facility] description pt ed on exam findings and shown OCT Monitor yearly, updated mac OCT c vision changes 3. 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 Pseudophakia OU and Refractive error/Presbyopia s/p yag cap OS 2015 and OD 01/10/17 at [facility] Order new glasses Ed. pt on all findings RTC 1 year or PRN /es/ MICHAEL PRINGLE, OD Staff Physician, Optometry Signed: 02/24/2024 16:19 MICHAEL PRINGLE [facility]
--- OUTSIDE RECORDS SUMMARY | 2025-01-21 13:03 | XMS_ITS | Continuity of Care Document ---
Author Name [facility] Organization [facility] Care Team Providers Care Supervisor [employer] Name Role Phone [facility] Unavailable Unavailable Problems Combined list of problems from Department of Defense and [facility] Affairs facilities. It does not include entries that were removed or entered in error. Problem Status Onset Date Problem Type Date of Resolution Comments Source Abdominal aortic aneurysm Active Condition [facility] Aneurysm of thoracic aorta Active Condition [facility] Benign essential hypertension Active Condition [facility] Benign Prostatic Hypertrophy without Outflow Obstruction ([facility] [id number]) Active Condition [facility] CAD - Coronary Artery Disease ([facility] [id number]) Active Condition [facility] Callous character Active Condition [facility] Colonic fistula Active Condition [facility] Coronary arteriosclerosis Active Condition [facility] Coronary artery disease Active Condition [facility] Dementia ([facility] [id number]) Active Condition [facility] Diabetes mellitus Active Condition [facility] Diabetes Mellitus Type 2 (SCT [id number]) Active Condition [facility] Diabetic neuropathy Active Condition [facility] Diabetic neuropathy with neurologic complication Active Condition [facility] Dyslipidemia Active Condition [facility] Gastroesophageal reflux disease Active Condition [facility] Gastroesophageal Reflux Disease Active Condition [facility] GERD - Gastro-Esophageal Reflux Disease (SCT [id number]) Active Condition [facility] Hearing loss Active Condition [facility] History of left hip replacement Active Condition [facility] HTN - Hypertension (SCT [id number]) Active Condition [facility] Hyperlipidemia Active Condition [facility] Hyperlipidemia ([facility] [id number]) Active Condition [facility] Hypertensive disorder Active Condition [facility]nee pain Active Condition [facility] Loose stool Active Condition ROMERO MENDOZA [facility] OA - Osteoarthritis ([facility] [id number]) Active Condition ROMERO Samuels [facility] Obesity Active Condition [facility] Osteoarthritis Active Condition [facility] Active Condition [facility] Stented artery Active Condition ROMERO Valdez [facility] Vitamin D deficiency Active Condition A SHANIA Samuels [facility] Diagnosis: ICD-10-CM Z98.890 Other specified postprocedural states Active Diagnosis [facility] Diagnosis: ICD-10-CM E11.40 Type 2 diabetes mellitus with diabetic neuropathy, unsp Active Diagnosis [facility] Diagnosis: ICD-10-CM Z72.3 Lack of physical exercise Active Diagnosis [facility] Diagnosis: ICD-10-CM Z46.1 Encounter for fitting and adjustment of hearing aid Active Diagnosis [facility] Diagnosis: ICD-10-CM I25.83 Coronary atherosclerosis due to lipid rich plaque Active Diagnosis [facility] Diagnosis: ICD-10-CM Z76.0 Encounter for issue of repeat prescription Active Diagnosis ROMERO Perez [facility] Diagnosis: ICD-10-CM 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 Diagnosis [facility] Diagnosis: ICD-10-CM Z71.9 Counseling, unspecified Active Diagnosis [facility] Diagnosis: ICD-10-CM K81.1 Chronic cholecystitis Active Diagnosis [facility] Admit Reason: CHOLECYSITIS Active Diagnosis [facility] Diagnosis: ICD-10-CM Z01.818 Encounter for other preprocedural examination Active Diagnosis [facility] Diagnosis: ICD-10-CM K80.20 Calculus of gallbladder w/o cholecystitis w/o obstruction Active Diagnosis [facility] Diagnosis: ICD-10-CM R93.2 Abnormal findings on dx imaging of liver and biliary tract Active Diagnosis [facility] Diagnosis: ICD-10-CM F41.1 Generalized anxiety disorder Active Diagnosis [facility] Diagnosis: ICD-10-CM E11.9 Type 2 diabetes mellitus without complications Active Diagnosis [facility] Diagnosis: ICD-10-CM K82.9 Disease of gallbladder, unspecified Active Diagnosis [facility] Diagnosis: ICD-10-CM R10.10 Upper abdominal pain, unspecified Active Diagnosis [facility] Diagnosis: ICD-10-CM E27.9 Disorder of adrenal gland, unspecified Active Diagnosis [facility] Diagnosis: ICD-10-CM M25.569 Pain in unspecified knee Active Diagnosis [facility] Diagnosis: ICD-10-CM L82.0 Inflamed seborrheic keratosis Active Diagnosis [facility] Diagnosis: ICD-10-CM R26.81 Unsteadiness on feet Active Diagnosis [facility] Medications Combined list of outpatient medications from Department of Defense and Veterans Affairs facilities.Medications provided include 1) outpatient medications from the last 15 months, and 2) patient-reported medications. Medication Details Route Status Patient Instructions Prescription Expires Prescription Number Last Dispense Date Ordering Provider Order Date Order Qty Source ACETAMINOPH EN 500MG TAB TAKE TWO TABLETS BY MOUTH EVERY EIGHT(8) HOURS NEEDED FOR PAIN CAUTION: DO NOT EXCEED 4000MG PER DAY ACETAMIN OPHEN (APAP) FROM ALL MEDS. ORAL 06/10/2024 [id number] CARMELA MORRISON 2023 100 [facility] AMLODIPINE BESYLATE 10MG TAB TAKE ONE-HALF TABLET BY MOUTH EVERY DAY ORAL ACTIVE SANDEE REYNOLDS 2018 [facility] ASPIRIN 81MG TAB,EC TAKE ONE TABLET BY MOUTH ONCE A DAY TAKE WITH FOOD. ORAL ACTIVE 03/27/2025 [id number] SAMPLES,R OBERTA CYNDI 2023 120 [facility] ASPIRIN 81MG TAB,EC TAKE ONE TABLET BY MOUTH ONCE A DAY TAKE WITH FOOD. ORAL DISCONT INUED 02/11/2024 [id number] SAMPLES,R OBERTA CYNDI 2022 120 [facility] ASPIRIN 81MG TAB,EC TAKE ONE TABLET BY MOUTH EVERY DAY ORAL ACTIVE SANDEE REYNOLDS 2013 [facility] ATORVASTATI N CA 40MG TAB TAKE ONE TABLET BY MOUTH EVERY DAY ORAL ACTIVE SANDEE REYNOLDS 2016 [facility] ATORVASTATI N CA 80MG TAB TAKE ONE TABLET BY MOUTH EVERY EVENING FOR HIGH CHOLESTE ROL ORAL ACTIVE 03/27/2025 [id number] 5 SAMPLES,R OBERTA CYNDI 2023 90 [facility] ATORVASTATI N CA 80MG TAB TAKE ONE TABLET BY MOUTH EVERY EVENING FOR HIGH CHOLESTE ROL ORAL DISCONT INUED 02/11/2024 [id number] SAMPLES,R OBERTA CYNDI 2022 90 [facility] BENZONATATE 100MG CAP TAKE ONE CAPSULE BY MOUTH THREE TIMES A DAY NEEDED FOR COUGH ORAL 02/11/2024 [id number] SAMPLES,R OBERTA CYNDI 2022 90 [facility] BISACODYL 5MG TAB,EC TAKE TWO TABLETS BY MOUTH ONE TIME TAKE BISACODY L TABLETS AT 4PM ON AFTERNOO N PRIOR TO TEST. CALL [phone] WITH ANY QUESTION S ABOUT THESE INSTRUCT IONS. MAIL TAKE BISACODY L TABLETS AT 4PM ON AFTERNOO N PRIOR TO TEST. CALL [phone] WITH ANY QUESTION S ABOUT THESE INSTRUCT IONS. MAIL ORAL 02/27/2024 [id number] 4 [facility] 2 [facility] N BISACODYL 5MG TAB,EC TAKE TWO TABLETS BY MOUTH ONE TIME TAKE BISACODY L TABLETS AT 4PM ON AFTERNOO N PRIOR TO TEST. CALL WITH ANY QUESTION S ABOUT THESE INSTRUCT IONS. MAIL TAKE BISACODY L TABLETS AT 4PM ON AFTERNOO N PRIOR TO TEST. CALL WITH ANY QUESTION S ABOUT THESE INSTRUCT IONS. MAIL ORAL 12/21/2023 [id number] 4 GUANACODevante ATTOFELIAW 2023 2 [facility] BUSPIRONE HCL 10MG TAB TAKE ONE-HALF TABLET BY MOUTH ONCE A DAY DO NOT TAKE WITH GRAPEFRU IT JUICE. ORAL ACTIVE 02/25/2025 [id number] 4 MONICA TURNERA N 2023 45 [facility] DIVIS[facility] N BUSPIRONE HCL 10MG TAB TAKE ONE-HALF TABLET BY MOUTH ONCE A DAY FOR ANXIETY DO NOT TAKE WITH GRAPEFRU IT JUICE. ORAL DISCONT INUED 11/20/2024 [id number] CLAY RODRIGUEZLACHMA N 2023 45 [facility] DIV[facility] N CARBOXYMETH YLCELLULOSE NA 0.5% SOLN,OPH INSTILL 1 DROP IN BOTH EYES FOUR TIMES A DAY NEEDED FOR DRY EYE(S) OPHTHA LMIC ACTIVE 02/24/2025 [id number] 4 MICHAEL PRINGLE 2023 30 [facility] N CARBOXYMETH YLCELLULOSE NA 0.5% SOLN,OPH INSTILL 1 DROP IN BOTH EYES FOUR TIMES A DAY NEEDED FOR DRY EYE(S) OPHTHA LMIC DISCONT INUED 02/24/2025 [id number] 4 MICHAEL PRINGLERICIA 2023 45 [facility] N CETIRIZINE HCL 10MG TAB TAKE ONE TABLET BY MOUTH ONCE A DAY NEEDED FOR ALLERGY SYMPTOMS ORAL ACTIVE 09/23/2025 [id number] 5 SAMPLES,R OBERTA CYNDI 2024 90 [facility] CETIRIZINE HCL 10MG TAB TAKE ONE TABLET BY MOUTH ONCE A DAY NEEDED FOR ALLERGY SYMPTOMS ORAL DISCONT INUED 09/24/2024 [id number] 5 SAMPLES,R OBERTA CYNDI 2023 90 [facility] CHOLECALCIF MIGUEL 50MCG (2,000UNIT) TAB TAKE ONE TABLET BY MOUTH ONCE A DAY FOR VITAMIN D DEFICIEN CY ORAL SUSPEND ED 09/23/2025 [id number] 5 SAMPLES,R OBERTA CYNDI 2024 100 [facility] CHOLECALCIF MIGUEL 50MCG (2,000UNIT) TAB TAKE ONE TABLET BY MOUTH ONCE A DAY FOR VITAMIN D DEFICIEN CY ORAL DISCONT INUED 09/24/2024 [id number] 4 SAMPLES,R OBERTA CYNDI 2023 100 [facility] CHOLESTYRAM INE 4GM/5GM (LIGHT) PWDR,PKT MIX AND DRINK 1 PACKET BY MOUTH TWICE DAILY NEEDED FOR CHRONIC DIARRHEA MIX WITH WATER DIRECTED . TAKE OTHER MEDICATI ONS 1 HOUR BEFORE OR 6 HOURS AFTER ADMINIST RATION. ORAL ACTIVE 11/12/2025 [id number] 5 SAMPLES,R OBERTA CYNDI 2024 84 [facility] CLOPIDOGREL BISULFATE 75MG TAB TAKE ONE TABLET BY MOUTH ONCE A DAY FOR ACUTE CORONARY SYNDROME ORAL ACTIVE 03/27/2025 [id number] 5 SAMPLES,R OBERTA CYNDI 2023 90 [facility] CLOPIDOGREL BISULFATE 75MG TAB TAKE ONE TABLET BY MOUTH ONCE A DAY FOR ACUTE CORONARY SYNDROME ORAL DISCONT INUED 02/11/2024 [id number] SAMPLES,R OBERTA CYNDI 2022 90 [facility] CLOPIDOGREL BISULFATE 75MG TAB TAKE ONE TABLET BY MOUTH EVERY DAY ORAL ACTIVE SANDEE REYNOLDS 2013 [facility] CYANOCOBALA MIN 1000MCG TAB TAKE ONE TABLET BY MOUTH ONCE A DAY FOR VITAMIN B12 SUPPLEME NTATION ORAL ACTIVE 09/23/2025 [id number] SAMPLES,R OBERTA CYNDI 2024 100 [facility] CYANOCOBALA MIN 1000MCG TAB TAKE ONE TABLET BY MOUTH ONCE A DAY FOR VITAMIN B12 SUPPLEME NTATION ORAL DISCONT INUED 09/24/2024 [id number] 5 SAMPLES,R OBERTA CYNDI 2023 100 [facility] CYCLOBENZAP RINE HCL 10MG TAB TAKE ONE TABLET BY MOUTH AT BEDTIME NEEDED FOR MUSCLE SPASM MAY CAUSE DROWSINE SS. DO NOT DRINK ALCOHOL WHILE TAKING THIS MEDICATI ON. ORAL ACTIVE 07/03/2025 [id number] 5 SAMPLES,R OBERTA CYNDI 2024 90 [facility] CYCLOBENZAP RINE HCL 10MG TAB TAKE ONE TABLET BY MOUTH AT BEDTIME NEEDED FOR MUSCLE SPASM MAY CAUSE DROWSINE SS. DO NOT DRINK ALCOHOL WHILE TAKING THIS MEDICATI ON. ORAL DISCONT INUED 09/24/2024 [id number] SAMPLES,R OBERTA CYNDI 2023 90 [facility] DICLOFENAC NA 1% GEL,TOP APPLY 4 GM TO AFFECTED AREA(S) FOUR TIMES A DAY NEEDED FOR PAIN DO NOT EXCEED MORE THAN 16 GRAMS DAILY TO ANY LOWER EXTREMIT Y JOINT. NOT MORE THAN 8 GRAMS DAILY TO ANY UPPER EXTREMIT Y JOINT. MAX 32GM/DAY OVER ALL JOINTS. (MEASURE DOSE WITH RULER ATTACHED INSIDE BOX) TOPICA L ACTIVE 03/27/2025 [id number] 5 SAMPLES,R OBERTA CYNDI 2023 100 [facility] DICLOFENAC NA 1% GEL,TOP APPLY 4 GM TO AFFECTED AREA(S) FOUR TIMES A DAY NEEDED FOR PAIN DO NOT EXCEED MORE THAN 16 GRAMS DAILY TO ANY LOWER EXTREMIT Y JOINT. NOT MORE THAN 8 GRAMS DAILY TO ANY UPPER EXTREMIT Y JOINT. MAX 32GM/DAY OVER ALL JOINTS. (MEASURE DOSE WITH RULER ATTACHED INSIDE BOX) TOPICA L DISCONT INUED 02/11/2024 [id number] 4 SAMPLES,R OBERTA CYNDI 2022 100 [facility] DONEPEZIL HCL 10MG TAB TAKE ONE TABLET BY MOUTH AT BEDTIME FOR ALZHEIME R DISEASE (JUST BEFORE BEDTIME) ORAL ACTIVE 03/27/2025 [id number] 5 SAMPLES,R OBERTA CYNDI 2023 90 [facility] DONEPEZIL HCL 10MG TAB TAKE ONE TABLET BY MOUTH AT BEDTIME FOR ALZHEIME R DISEASE (JUST BEFORE BEDTIME) ORAL DISCONT INUED 02/11/2024 [id number] 4 SAMPLES,R OBERTA CYNDI 2022 90 [facility] DONEPEZIL HCL 10MG TAB TAKE ONE-HALF TABLET BY MOUTH AT BEDTIME ORAL ACTIVE SANDEE REYNOLDS 2020 [facility] EMPAGLIFLOZ IN 10MG TAB TAKE ONE TABLET BY MOUTH EVERY DAY ORAL ACTIVE SANDEE REYNOLDS 2018 [facility] EMPAGLIFLOZ IN 25MG TAB TAKE ONE-HALF TABLET BY MOUTH ONCE A DAY ORAL ACTIVE 03/27/2025 [id number] 5 SAMPLES,R OBERTA CYNDI 2023 45 [facility] EMPAGLIFLOZ IN 25MG TAB TAKE ONE-HALF TABLET BY MOUTH ONCE A DAY ORAL DISCONT INUED 02/11/2024 [id number] SAMPLES,R OBERTA CYNDI 2022 45 [facility] GABAPENTIN 100MG CAP TAKE ONE CAPSULE BY MOUTH TWICE A DAY AND TAKE THREE CAPSULES AT BEDTIME FOR NERVE PAIN ORAL 02/11/2024 [id number] SAMPLES,R OBERTA CYNDI 2022 450 [facility] GABAPENTIN 100MG CAP TAKE 1 CAPSULE BY MOUTH EVERY DAY ORAL ACTIVE SANDEE REYNOLDS 2020 [facility] IRBESARTAN 150MG TAB TAKE ONE TABLET BY MOUTH ONCE A DAY FOR HIGH BLOOD PRESSURE NOTE: DOSE DECREASE ORAL DISCONT INUED (EDIT) 03/17/2025 [id number] 4 SAMPLES,R OBERTA CYNDI 2023 90 [facility] IRBESARTAN 300MG TAB TAKE ONE TABLET BY MOUTH ONCE A DAY FOR HIGH BLOOD PRESSURE ORAL 02/11/2024 [id number] SAMPLES,R OBERTA CYNDI 2022 90 [facility] IRBESARTAN 300MG TAB TAKE ONE TABLET BY MOUTH EVERY DAY ORAL ACTIVE SANDEE REYNOLDS 2013 [facility] IRBESARTAN 75MG TAB TAKE ONE TABLET BY MOUTH ONCE A DAY NOTE: DOSE DECREASE ORAL ACTIVE 03/27/2025 [id number] 5 SAMPLES,R OBERTA CYNDI 2023 90 [facility] ISOSORBIDE MONONITRATE 30MG TAB,SA TAKE ONE TABLET BY MOUTH ONCE A DAY FOR CHEST PAIN TAKE ON EMPTY STOMACH. SWALLOW WHOLE. DO NOT CRUSH OR CHEW. ORAL ACTIVE 09/23/2025 [id number] 5 SAMPLES,R OBERTA CYNDI 2024 90 [facility] ISOSORBIDE MONONITRATE 30MG TAB,SA TAKE ONE TABLET BY MOUTH ONCE A DAY FOR CHEST PAIN TAKE ON EMPTY STOMACH. SWALLOW WHOLE. DO NOT CRUSH OR CHEW. ORAL DISCONT INUED 09/24/2024 [id number] 4 SAMPLES,R OBERTA CYNDI 2023 90 [facility] ISOSORBIDE MONONITRATE 30MG TAB,SA TAKE ONE TABLET BY MOUTH EVERY MORNING ORAL ACTIVE [facility]OLDS 2013 [facility] KETOROLAC TROMETHAMIN E 10MG TAB TAKE ONE TABLET BY MOUTH EVERY DAY NEEDED ORAL ACTIVE SANDEE REYNOLDS 2020 [facility] MELATONIN 5MG CAP/TAB TAKE ONE CAP/TAB BY MOUTH AT BEDTIME FOR SLEEP ORAL SUSPEND ED 07/21/2025 [id number] SAMPLES,R OBERTA CYNDI 2024 90 [facility] MELOXICAM 15MG TAB TAKE ONE TABLET BY MOUTH EVERY DAY ORAL ACTIVE SANDEE REYNOLDS 2013 [facility] METFORMIN HCL 1000MG TAB TAKE ONE TABLET BY MOUTH ONCE A DAY FOR DIABETES TAKE WITH FOOD. AVOID ALCOHOL. DISCONTI NUE BEFORE GETTING XRAY DYE. ORAL ACTIVE 09/23/2025 [id number] SAMPLES,R OBERTA CYNDI 2024 90 [facility] METFORMIN HCL 1000MG TAB TAKE ONE TABLET BY MOUTH ONCE A DAY FOR DIABETES TAKE WITH FOOD. AVOID ALCOHOL. DISCONTI NUE BEFORE GETTING XRAY DYE. ORAL DISCONT INUED 09/24/2024 [id number] 5 SAMPLES,R OBERTA CYNDI 2023 90 [facility] METFORMIN HCL 1000MG TAB TAKE ONE TABLET BY MOUTH EVERY DAY FOR DIABETES -DO NOT DRINK ALCOHOL - TAKE WITH FOOD ORAL 09/17/2024 [id number] RISER[facility] 2024 30 ROMERO HODGES [facility] METFORMIN HCL 500MG TAB TAKE ONE TABLET BY MOUTH EVERY MORNING ORAL ACTIVE [facility]DEE REYNOLDS 2014 [facility] METOPROLOL SUCCINATE 100MG TAB,SA TAKE ONE-HALF TABLET BY MOUTH ONCE A DAY FOR HIGH BLOOD PRESSURE SWALLOW WHOLE, DO NOT CRUSH OR CHEW (TABLETS MAY BE CUT IN HALF). ORAL ACTIVE 03/27/2025 [id number] 5 SAMPLES,R OBERTA CYNDI 2023 45 [facility] METOPROLOL SUCCINATE 100MG TAB,SA TAKE ONE-HALF TABLET BY MOUTH EVERY DAY ORAL ACTIVE GARLANDPRANAVSANDEE H 2013 [facility] OMEPRAZOLE 20MG CAP,EC TAKE 2 CAPSULES BY MOUTH EVERY DAY ORAL ACTIVE SANDEE REYNOLDS H 2020 [facility] OMEPRAZOLE 40MG CAP,EC TAKE ONE CAPSULE BY MOUTH EVERY MORNING BEFORE A MEAL TAKE 30 MINUTES PRIOR TO FOOD. ORAL ACTIVE 09/23/2025 [id number] 5 SAMPLES,R OBERTA CYNDI 2024 90 [facility] OMEPRAZOLE 40MG CAP,EC TAKE ONE CAPSULE BY MOUTH EVERY MORNING BEFORE A MEAL TAKE 30 MINUTES PRIOR TO FOOD. ORAL DISCONT INUED 09/24/2024 [id number] SAMPLES,R OBERTA CYNDI 2023 90 [facility] OXYCODONE HCL 5MG TAB TAKE ONE TABLET BY MOUTH EVERY 6 HOURS NEEDED FOR POST-OPE RATIVE PAIN MAY CAUSE CONSTIPA TION ORAL 06/10/2024 [id number] 4 CARMELA MORRISON 2023 6 [facility] PEG-3350/EL ECTROLYTES PWDR MIX AND DRINK CONTENTS OF BOTTLE BY MOUTH DIRECTED (THE DAY BEFORE YOUR TEST ONLY DRINK CLEAR LIQUIDS- NO SOLID FOOD! TAKE THE BISACODY L TABLETS AT 4PM AND MIX THE GOLYTELY WITH WATER AND REFRIGER ATE. AT 7PM DRINK HALF OF THE GOLYTELY . REFRIGER ATE OVERNIGH T. COMPLETE GOLYTELY 3 HRS BEFORE LEAVING HOME FOR TEST. READ YOUR INSTRUCT IONS!) (THE DAY BEFORE YOUR TEST ONLY DRINK CLEAR LIQUIDS- NO SOLID FOOD! TAKE THE BISACODY L TABLETS AT 4PM AND MIX THE GOLYTELY WITH WATER AND REFRIGER ATE. AT 7PM DRINK HALF OF THE GOLYTELY . REFRIGER ATE OVERNIGH T. COMPLETE GOLYTELY 3 HRS BEFORE LEAVING HOME FOR TEST. READ YOUR INSTRUCT IONS!) ORAL 12/21/2023 [id number] 4 Devante BLANC ATTHEW H 2023 1 [facility] DIV[facility] N POLYETHYLEN E GLYCOL 3350 PWDR,ORAL MIX AND DRINK 2 CAPFULS BY MOUTH ONCE A DAY FOR BOWEL EMPTYING (MEASURE WITH CAP AND MIX IN 8 OZ OF WATER) ORAL 01/05/2024 [id number] 4 MACK CHAN C W 2023 1530 [facility] DIVISIO N SIMETHICONE 80MG TAB,CHEW CHEW AND SWALLOW FOUR TABLETS BY MOUTH DIRECTED FOR GAS DISCOMFO RT FOR TWO DOSES BEFORE GI PROCEDUR E ORAL 02/27/2024 [id number] 4 Devante BLANC ATTHEW H 2023 8 [facility] N SIMETHICONE 80MG TAB,CHEW CHEW AND SWALLOW FOUR TABLETS BY MOUTH DIRECTED FOR GAS DISCOMFO RT FOR TWO DOSES BEFORE GI PROCEDUR E ORAL 12/21/2023 [id number] 4 FELICEYINADevante ATTHEW H 2023 8 [facility] DIV[facility] N TAMSULOSIN HCL 0.4MG CAP TAKE TWO CAPSULES BY MOUTH EVERY EVENING FOR BENIGN PROSTATI C HYPERPLA JOSE D APPROXIM ATELY 30 MINUTES AFTER THE SAME MEAL EACH DAY ORAL ACTIVE 09/23/2025 [id number] 5 SAMPLES,R OBERTA CYNDI 2024 180 [facility] TAMSULOSIN HCL 0.4MG CAP TAKE TWO CAPSULES BY MOUTH EVERY EVENING FOR BENIGN PROSTATI C HYPERPLA JOSE D APPROXIM ATELY 30 MINUTES AFTER THE SAME MEAL EACH DAY ORAL DISCONT INUED 07/22/2024 [id number] SAMPLES,R OBERTA CYNDI 2023 180 [facility] TAMSULOSIN HCL 0.4MG CAP TAKE TWO CAPSULES BY MOUTH EVERY EVENING FOR BENIGN PROSTATI C HYPERPLA JOSE D APPROXIM ATELY 30 MINUTES AFTER THE SAME MEAL EACH DAY ORAL DISCONT INUED 07/22/2024 [id number] SAMPLES,R OBERTA CYNDI 2023 180 [facility] TRAMADOL HCL 50MG TAB TAKE ONE TABLET BY MOUTH EVERY DAY NEEDED ORAL ACTIVE SANDEE REYNOLDS 2020 [facility] Allergies, Adverse Reactions, Alerts Combined list of allergies from Department of Defense and Veterans Affairs facilities. It does not include entries that were removed or entered in error. Substance Category Reaction Severity Reaction type Status Date Reported Comments Source MAURICE INHIBITORS Propensity to adverse reactions to drug (finding) Cough active 2 [facility] SIMVASTATIN Propensity to adverse reactions to drug (finding) active 9 [facility] SIMVASTATIN Propensity to adverse reactions to drug (finding) Muscle pain active 2 [facility] Immunizations Combined list of available immunizations from the Department of Defense and Veterans Affairs facilities. 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 Status Comments Source INFLUENZA, UNSPECIFIED FORMULATION 2022 88 complet ed HISTORICA L INFORMATI ON - FROM OTHER PROVIDER, [facility] ZOSTER RECOMBINANT 2 2021 187 complet ed HISTORICA L INFORMATI ON - FROM OTHER REGISTRY, per JLV given at [facility] ZOSTER RECOMBINANT 1 2021 187 complet ed HISTORICA L INFORMATI ON - FROM OTHER REGISTRY, PER JLV given at [facility] INFLUENZA, UNSPECIFIED FORMULATION 2020 88 complet ed [facility] PNEUMOCOCCAL POLYSACCHARID E PPV23 2 2020 33 complet ed HISTORICA L INFORMATI ON - FROM OTHER REGISTRY, [facility] COVID-19 (MODERNA), MRNA, LNP-S, PF, 100 MCG/0.5ML DOSE OR 50 MCG/0.25ML DOSE 2 2020 207 complet ed HISTORICA L INFORMATI ON - FROM OTHER REGISTRY, [facility] COVID-19 (MODERNA), MRNA, LNP-S, PF, 100 MCG/0.5ML DOSE OR 50 MCG/0.25ML DOSE 1 2020 207 complet ed HISTORICA L INFORMATI ON - FROM OTHER REGISTRY, [facility] INFLUENZA, HIGH-DOSE, QUADRIVALENT, PF 1 2019 197 complet ed HISTORICA L INFORMATI ON - FROM OTHER REGISTRY, [facility] INFLUENZA, UNSPECIFIED FORMULATION 2019 88 complet ed [facility] INFLUENZA, SPLIT VIRUS, QUADRIVALENT, PF 1 2018 150 complet ed HISTORICA L INFORMATI ON - FROM OTHER REGISTRY, [facility] PNEUMOCOCCAL CONJUGATE PCV 13 1 2018 133 complet ed HISTORICA L INFORMATI ON - FROM OTHER REGISTRY, [facility] INFLUENZA, SEASONAL, INJECTABLE 2018 141 complet ed [facility] PNEUMOCOCCAL CONJUGATE PCV 13 2018 133 complet ed date unknown [facility] INFLUENZA, SPLIT VIRUS, TRIVALENT, PRESERVATIVE 2 2017 141 complet ed HISTORICA L INFORMATI ON - FROM OTHER REGISTRY, [facility] INFLUENZA, HIGH-DOSE, TRIVALENT, PF 1 2017 135 complet ed HISTORICA L INFORMATI ON - FROM OTHER REGISTRY, [facility] INFLUENZA, HIGH DOSE SEASONAL 2017 135 complet ed [facility] PNEUMOCOCCAL CONJUGATE PCV 13 2012 133 complet ed [facility] TDAP 2011 115 complet ed [facility] TD (ADULT), 2 LF TETANUS TOXOID, PRESERVATIVE FREE, ADSORBED 1 2007 09 complet ed HISTORICA L INFORMATI ON - FROM OTHER REGISTRY, [facility] Results Combined list of recent chemistry, hematology and other laboratory results from Department of Defense and Veterans Affairs, ranging from 15 months to all on record, depending upon the facility. Order Name Results Value Reference Range Date Interpretation Specimen Comments Source MAGNESIUM MAGNESIUM [MASS/VOLUM E] IN SERUM OR PLASMA 1.7 mg/dL 1.6 - 2.6 09/22 Specimen Type: PLASMA Comment: No hemolysis noted. Ordering Provider: SONNY SCHMIDT Report Released Date/Time: Sep 20, 2024 04:29 PM Reporting Lab: [facility] [address] [facility] [id number] Performing Lab: [facility] [address] [facility] [address] [place] [facility] LIPID PANEL (STL) CHOLESTEROL [MASS/VOLUM E] IN SERUM OR PLASMA 185 mg/dL 0 - 200 09/22 Specimen Type: PLASMA Comment: No hemolysis noted. Ordering Provider: SONNY SCHMIDT Report Released Date/Time: Sep 20, 2024 04:29 PM Reporting Lab: [address] [id number] Performing Lab: [address] [id number] [place] [address] [facility] LIPID PANEL (STL) TRIGLYCERID E [MASS/VOLUM E] IN SERUM OR PLASMA 171 mg/dL 0 - 150 09/22 H Specimen Type: PLASMA Comment: No hemolysis noted. Ordering Provider: SONNY SCHMIDT Report Released Date/Time: Sep 20, 2024 04:29 PM Reporting Lab: [address] [id number] Performing Lab: [id number] [facility] LIPID PANEL (STL) CHOLESTEROL IN LDL [MASS/VOLUM E] IN SERUM OR PLASMA BY CALCULATION 115 mg/dL 09/22 Specimen Type: PLASMA Comment: No hemolysis noted. Ordering Provider: SONNY SCHMIDT Report Released Date/Time: Sep 20, 2024 04:29 PM Reporting Lab: [address] [phone] Performing Lab: [phone] [place] [address] [facility] LIPID PANEL (STL) CHOLESTEROL IN HDL [MASS/VOLUM E] IN SERUM OR PLASMA 36 mg/dL 40 09/22 L Specimen Type: PLASMA Comment: No hemolysis noted. Ordering Provider: SONNY SCHMIDT Report Released Date/Time: Sep 20, 2024 04:29 PM Reporting Lab: [address] [address] Performing Lab: [phone] [facility] HGA1C HEMOGLOBIN A1C/HEMOGLO BIN.TOTAL IN BLOOD 7.4 4.0 - 6.0 09/22 H Specimen Type: BLOOD No comment entered. Ordering Provider: SONNY SCHMIDT Report Released Date/Time: Sep 20, 2024 04:29 PM Reporting Lab: [facility] [address] [place] [address] Performing Lab: [place] [phone] [facility] B12 COBALAMIN (VITAMIN B12) [MASS/VOLUM E] IN SERUM OR PLASMA 548 pg/mL 213 - 816 09/22 Specimen Type: SERUM No comment entered. Ordering Provider: SONNY SCHMIDT Report Released Date/Time: Sep 20, 2024 04:29 PM Reporting Lab: [place] [address] Performing Lab: [address] [facility] TSH W/ REFLEX FT4 (STL) THYROTROPIN [UNITS/VOLU ME] IN SERUM OR PLASMA 2.029 u[IU]/ mL 0.47 - 5 09/22 Specimen Type: PLASMA No comment entered. Ordering Provider: SONNY SCHMIDT Report Released Date/Time: Sep 20, 2024 04:29 PM Reporting Lab: [facility] [address] [place] [address] Performing Lab: [address] [facility] COMPREHEN SIVE METABOLIC PANEL CREATININE [MASS/VOLUM E] IN SERUM OR PLASMA 1.01 mg/dL 0.7 - 1.3 09/22 Specimen Type: PLASMA Comment: No hemolysis noted. Ordering Provider: SONNY SCHMIDT Report Released Date/Time: Sep 20, 2024 04:29 PM Reporting Lab: [facility] [address] [place] [address] Performing Lab: [address] [facility] COMPREHEN SIVE METABOLIC PANEL UREA NITROGEN [MASS/VOLUM E] IN SERUM OR PLASMA 15.7 mg/dL 9.0 - 25.0 09/22 Specimen Type: PLASMA Comment: No hemolysis noted. Ordering Provider: SONNY SCHMIDT Report Released Date/Time: Sep 20, 2024 04:29 PM Reporting Lab: [facility] [address] [place] [phone] Performing Lab: [address] [phone] [place] [address] [facility] COMPREHEN SIVE METABOLIC PANEL GLUCOSE [MASS/VOLUM E] IN SERUM OR PLASMA 217 mg/dL 72 - 99 09/22 H Specimen Type: PLASMA Comment: No hemolysis noted. Ordering Provider: SONNY SCHMIDT Report Released Date/Time: Sep 20, 2024 04:29 PM Reporting Lab: [address] [address] Performing Lab: [address] [phone] [facility] COMPREHEN SIVE METABOLIC PANEL SODIUM [MOLES/VOLU ME] IN SERUM OR PLASMA 136 meq/L 136 - 145 09/22 Specimen Type: PLASMA Comment: No hemolysis noted. Ordering Provider: SONNY SCHMIDT Report Released Date/Time: Sep 20, 2024 04:29 PM Reporting Lab: [facility] [address] [place] [phone] Performing Lab: [address] [phone] [place] [address] [facility] COMPREHEN SIVE METABOLIC PANEL POTASSIUM [MOLES/VOLU ME] IN SERUM OR PLASMA 4.2 meq/L 3.5 - 5 09/22 Specimen Type: PLASMA Comment: No hemolysis noted. Ordering Provider: SONNY SCHMIDT Report Released Date/Time: Sep 20, 2024 04:29 PM Reporting Lab: [facility] [address] [place] [phone] Performing Lab: [address] [phone] [place] [address] [facility] COMPREHEN SIVE METABOLIC PANEL CHLORIDE [MOLES/VOLU ME] IN SERUM OR PLASMA 107 meq/L 98 - 107 09/22 Specimen Type: PLASMA Comment: No hemolysis noted. Ordering Provider: SONNY SCHMIDT Report Released Date/Time: Sep 20, 2024 04:29 PM Reporting Lab: [address] [phone] Performing Lab: [facility] [address] [place] [phone] [place] [address] CBOC COMPREHEN SIVE METABOLIC PANEL CARBON DIOXIDE, TOTAL [MOLES/VOLU ME] IN SERUM OR PLASMA 23 meq/L 22 - 31 09/22 Specimen Type: PLASMA Comment: No hemolysis noted. Ordering Provider: SONNY SCHMIDT Report Released Date/Time: Sep 20, 2024 04:29 PM Reporting Lab: [address] [phone] Performing Lab: [address] [phone] [facility] COMPREHEN SIVE METABOLIC PANEL CALCIUM [MASS/VOLUM E] IN SERUM OR PLASMA 9.1 mg/dL 8.4 - 10.4 09/22 Specimen Type: PLASMA Comment: No hemolysis noted. Ordering Provider: SONNY SCHMIDT Report Released Date/Time: Sep 20, 2024 04:29 PM Reporting Lab: [facility] [address] [place] [phone] Performing Lab: [phone] [place] [address] [facility] COMPREHEN SIVE METABOLIC PANEL PROTEIN [MASS/VOLUM E] IN SERUM OR PLASMA 6.5 g/dL 6 - 8.6 09/22 Specimen Type: PLASMA Comment: No hemolysis noted. Ordering Provider: SONNY SCHMIDT Report Released Date/Time: Sep 20, 2024 04:29 PM Reporting Lab: [facility] [address] [place] [phone] Performing Lab: [address] [address] [place] [facility] COMPREHEN SIVE METABOLIC PANEL ALBUMIN [MASS/VOLUM E] IN SERUM OR PLASMA 3.5 g/dL 3.4 - 5 04/02 /2025 Specimen Type: PLASMA Comment: No hemolysis noted. Ordering Provider: SONNY SCHMIDT Report Released Date/Time: Sep 20, 2024 04:29 PM Reporting Lab: [place] [address] Performing Lab: [address] [phone] [facility] COMPREHEN SIVE METABOLIC PANEL BILIRUBIN.T OTAL [MASS/VOLUM E] IN SERUM OR PLASMA 0.6 mg/dL 0.2 - 1.2 09/22 Specimen Type: PLASMA Comment: No hemolysis noted. Ordering Provider: SONNY SCHMIDT Report Released Date/Time: Sep 20, 2024 04:29 PM Reporting Lab: [address] [phone] Performing Lab: [phone] [place] [address] [facility] COMPREHEN SIVE METABOLIC PANEL ALKALINE PHOSPHATASE [ENZYMATIC ACTIVITY/VO LUME] IN SERUM OR PLASMA 146 U/L 40 - 150 09/22 Specimen Type: PLASMA Comment: No hemolysis noted. Ordering Provider: SONNY SCHMIDT Report Released Date/Time: Sep 20, 2024 04:29 PM Reporting Lab: [address] [address] Performing Lab: [address] [phone] [facility] COMPREHEN SIVE METABOLIC PANEL ASPARTATE AMINOTRANSF ERASE [ENZYMATIC ACTIVITY/VO LUME] IN SERUM OR PLASMA 16 U/L 5 - 34 09/22 Specimen Type: PLASMA Comment: No hemolysis noted. Ordering Provider: SONNY SCHMIDT Report Released Date/Time: Sep 20, 2024 04:29 PM Reporting Lab: [address] [phone] Performing Lab: [address] [phone] [place] [address] CB COMPREHEN SIVE METABOLIC PANEL ALANINE AMINOTRANSF ERASE [ENZYMATIC ACTIVITY/VO LUME] IN SERUM OR PLASMA 16 U/L 8 - 40 09/22 Specimen Type: PLASMA Comment: No hemolysis noted. Ordering Provider: SONNY SCHMIDT Report Released Date/Time: Sep 20, 2024 04:29 PM Reporting Lab: [place] [address] Performing Lab: [address] [facility] COMPREHEN SIVE METABOLIC PANEL GLOMERULAR FILTRATION RATE/1.73 SQ M.PREDICTED [VOLUME RATE/AREA] IN SERUM, PLASMA OR BLOOD BY CREATININE- BASED FORMULA (CKD-EPI 2020) 74.7 60 09/22 Specimen Type: PLASMA Comment: No hemolysis noted. Ordering Provider: SONNY SCHMIDT Report Released Date/Time: Sep 20, 2024 04:29 PM Reporting Lab: [place] [address] Performing Lab: [address] [facility] VITAMIN D, 25-HYDROX Y 25-HYDROXYV ITAMIN D3 [MASS/VOLUM E] IN SERUM OR PLASMA 23.7 ng/mL 30 - 96 09/22 L Specimen Type: SERUM No comment entered. Ordering Provider: SONNY SCHMIDT Report Released Date/Time: Sep 20, 2024 04:29 PM Reporting Lab: [place] [address] Performing Lab: [address] [facility] MICRAL/CR EAT PROFILE (STL) ALBUMIN [MASS/VOLUM E] IN URINE 7.6 mg/L 09/22 Specimen Type: URINE No comment entered. Ordering Provider: SONNY SCHMIDT Report Released Date/Time: Sep 20, 2024 04:29 PM Reporting Lab: [place] [address] Performing Lab: [address] [facility] MICRAL/CR EAT PROFILE (STL) ALBUMIN/CRE ATININE [MASS RATIO] IN URINE 5 mg/g 0 - 29 09/22 Specimen Type: URINE No comment entered. Ordering Provider: SONNY SCHMIDT Report Released Date/Time: Sep 20, 2024 04:29 PM Reporting Lab: [address] [address] Performing Lab: [address] [phone] [place] [address] [facility] MICRAL/CR EAT PROFILE (STL) CREATININE [MASS/VOLUM E] IN URINE 158.4 mg/dL 63 - 166 09/22 Specimen Type: URINE No comment entered. Ordering Provider: SONNY SCHMIDT Report Released Date/Time: Sep 20, 2024 04:29 PM Reporting Lab: [address] [phone] Performing Lab: [address] [phone] [place] [address] CB CBC LEUKOCYTES [#/VOLUME] IN BLOOD BY AUTOMATED COUNT 5.0 10*3/u L 3.6 - 11.2 09/22 Specimen Type: BLOOD No comment entered. Ordering Provider: SONNY SCHMIDT Report Released Date/Time: Sep 20, 2024 04:29 PM Reporting Lab: [address] [address] Performing Lab: [address] [phone] [place] [address] CB CBC ERYTHROCYTE S [#/VOLUME] IN BLOOD BY AUTOMATED COUNT 4.54 10*6/u L 4.10 - 5.70 09/22 Specimen Type: BLOOD No comment entered. Ordering Provider: SONNY SCHMIDT Report Released Date/Time: Sep 20, 2024 04:29 PM Reporting Lab: [address] [phone] Performing Lab: [address] [phone] [facility] CBC HEMOGLOBIN [MASS/VOLUM E] IN BLOOD 14.7 g/dL 13.1 - 16.8 09/22 Specimen Type: BLOOD No comment entered. Ordering Provider: SONNY SCHMIDT Report Released Date/Time: Sep 20, 2024 04:29 PM Reporting Lab: [place] [phone] Performing Lab: [address] [facility] CBC HEMATOCRIT [VOLUME FRACTION] OF BLOOD 43.5 38.2 - 48.4 09/22 Specimen Type: BLOOD No comment entered. Ordering Provider: SONNY SCHMIDT Report Released Date/Time: Sep 20, 2024 04:29 PM Reporting Lab: [place] [address] Performing Lab: [address] [facility] CBC MCV [ENTITIC VOLUME] BY AUTOMATED COUNT 95.8 fL 80.0 - 100.0 09/22 Specimen Type: BLOOD No comment entered. Ordering Provider: SONNY SCHMIDT Report Released Date/Time: Sep 20, 2024 04:29 PM Reporting Lab: [place] [address] Performing Lab: [phone] [facility] CBC MCH [ENTITIC MASS] BY AUTOMATED COUNT 32.4 pg 27.0 - 34.0 09/22 Specimen Type: BLOOD No comment entered. Ordering Provider: SONNY SCHMIDT Report Released Date/Time: Sep 20, 2024 04:29 PM Reporting Lab: [place] [address] Performing Lab: [address] [facility] CBC MCHC [MASS/VOLUM E] BY AUTOMATED COUNT 33.8 g/dL 33.0 - 36.0 09/22 Specimen Type: BLOOD No comment entered. Ordering Provider: SONNY SCHMIDT Report Released Date/Time: Sep 20, 2024 04:29 PM Reporting Lab: [facility] [address] [place] [address] Performing Lab: [address] [facility] CBC PLATELETS [#/VOLUME] IN BLOOD BY AUTOMATED COUNT 242 10*3/u L 150 - 400 09/22 Specimen Type: BLOOD No comment entered. Ordering Provider: SONNY SCHMIDT Report Released Date/Time: Sep 20, 2024 04:29 PM Reporting Lab: [place] [address] Performing Lab: [address] [facility] CBC PLATELET MEAN VOLUME [ENTITIC VOLUME] IN BLOOD BY AUTOMATED COUNT 10.5 fL 7.5 - 11.2 09/22 Specimen Type: BLOOD No comment entered. Ordering Provider: SONNY SCHMIDT Report Released Date/Time: Sep 20, 2024 04:29 PM Reporting Lab: [place] [address] Performing Lab: [address] [facility] CBC ERYTHROCYTE DISTRIBUTIO N WIDTH [RATIO] BY AUTOMATED COUNT 12.1 11.8 - 15.1 09/22 Specimen Type: BLOOD No comment entered. Ordering Provider: SONNY SCHMIDT Report Released Date/Time: Sep 20, 2024 04:29 PM Reporting Lab: [facility] [address] [place] [address] Performing Lab: [address] [facility] CBC LYMPHOCYTES /100 LEUKOCYTES IN BLOOD BY AUTOMATED COUNT 32 09/22 Specimen Type: BLOOD No comment entered. Ordering Provider: SONNY SCHMIDT Report Released Date/Time: Sep 20, 2024 04:29 PM Reporting Lab: [facility] [address] [place] [phone] Performing Lab: [address] [address] [place] [facility] CBC MONOCYTES/1 00 LEUKOCYTES IN BLOOD BY AUTOMATED COUNT 7 09/22 Specimen Type: BLOOD No comment entered. Ordering Provider: SONNY SCHMIDT Report Released Date/Time: Sep 20, 2024 04:29 PM Reporting Lab: [address] [phone] Performing Lab: [address] [address] [place] [facility] CBC NEUTROPHILS /100 LEUKOCYTES IN BLOOD BY AUTOMATED COUNT 58 09/22 Specimen Type: BLOOD No comment entered. Ordering Provider: SONNY SCHMIDT Report Released Date/Time: Sep 20, 2024 04:29 PM Reporting Lab: [address] [phone] Performing Lab: [address] [phone] [place] [address] [facility] CBC EOSINOPHILS /100 LEUKOCYTES IN BLOOD BY AUTOMATED COUNT 3 09/22 Specimen Type: BLOOD No comment entered. Ordering Provider: SONNY SCHMIDT Report Released Date/Time: Sep 20, 2024 04:29 PM Reporting Lab: [address] [address] Performing Lab: [phone] [place] [address] [facility] CBC BASOPHILS/1 00 LEUKOCYTES IN BLOOD BY AUTOMATED COUNT 1 09/22 Specimen Type: BLOOD No comment entered. Ordering Provider: SONNY SCHMIDT Report Released Date/Time: Sep 20, 2024 04:29 PM Reporting Lab: [address] [address] Performing Lab: [address] [address] [place] [facility] CBC LYMPHOCYTES [#/VOLUME] IN BLOOD BY AUTOMATED COUNT 1.60 10*3/u L 0.77 - 4.50 09/22 Specimen Type: BLOOD No comment entered. Ordering Provider: SONNY SCHMIDT Report Released Date/Time: Sep 20, 2024 04:29 PM Reporting Lab: [facility] [address] [place] [address] Performing Lab: [facility] [address] [place] [address] [facility] CBC MONOCYTES [#/VOLUME] IN BLOOD BY AUTOMATED COUNT 0.35 10*3/u L 0.19 - 0.80 09/22 Specimen Type: BLOOD No comment entered. Ordering Provider: SONNY SCHMIDT Report Released Date/Time: Sep 20, 2024 04:29 PM Reporting Lab: [place] [address] Performing Lab: [address] [facility] CBC NEUTROPHILS [#/VOLUME] IN BLOOD BY AUTOMATED COUNT 2.87 10*3/u L 2.10 - 8.00 09/22 Specimen Type: BLOOD No comment entered. Ordering Provider: SONNY SCHMIDT Report Released Date/Time: Sep 20, 2024 04:29 PM Reporting Lab: [facility] [address] [place] [address] Performing Lab: [address] [facility] CBC EOSINOPHILS [#/VOLUME] IN BLOOD BY AUTOMATED COUNT 0.13 10*3/u L 0.00 - 0.60 09/22 Specimen Type: BLOOD No comment entered. Ordering Provider: SONNY SCHMIDT Report Released Date/Time: Sep 20, 2024 04:29 PM Reporting Lab: [facility] [address] [place] [address] Performing Lab: [address] [facility] CBC BASOPHILS [#/VOLUME] IN BLOOD BY AUTOMATED COUNT 0.03 10*3/u L 0.00 - 0.20 09/22 Specimen Type: BLOOD No comment entered. Ordering Provider: SONNY SCHMIDT Report Released Date/Time: Sep 20, 2024 04:29 PM Reporting Lab: [address] [phone] Performing Lab: [address] [address] [place] [facility] GLUCOSE,B LOOD-poct (STL) GLUCOSE [MASS/VOLUM E] IN BLOOD BY AUTOMATED TEST STRIP 154 mg/dL 72 - 99 05/11 H Specimen Type: BLOOD Comment: Test Performed by: [id number] Meter #: [id number] Ordering Provider: CARMELA MORRISON Report Released Date/Time: May 11, 2024 06:36 AM Reporting Lab: [address] [address] Performing Lab: [address] [phone] [place] [address] Vital Signs Combined list of inpatient and outpatient Vital Signs from Department of Defense and Veterans Affairs, ranging from 12 months to all on record, depending upon the facility. Vital Sign Value Date Comments Source SYSTOLIC BLOOD PRESSURE 103 12/28/19 25 10:01:44 [facility] DIASTOLIC BLOOD PRESSURE 60 025 10:01:44 [facility] PULSE OXIMETRY 96 % 12/27/2024 10:01:44 [facility] WEIGHT 230 12/27/2024 10:01:44 [facility] BMI 31 kg/m2 12/27/2024 10:01:44 [facility] PAIN 0 12/27/2024 10:01:44 [facility] TEMPERATURE 97.2 12/27/2024 10:01:44 [facility] PULSE 70 12/27/2024 10:01:44 [facility] RESPIRATION 16 12/27/2024 10:01:44 [facility] SYSTOLIC BLOOD PRESSURE 154 12/08/19 25 11:01:58 [facility] DIASTOLIC BLOOD PRESSURE 71 025 11:01:58 [place] [facility] PULSE OXIMETRY 97 % 12/07/2024 11:01:58 [facility] WEIGHT 229.6 12/07/2024 11:01:58 [place] [facility] BMI 31 kg/m2 12/07/2024 11:01:58 [place] PAIN 3 12/07/2024 11:01:58 [facility] [facility] HEIGHT 72 12/07/2024 11:01:58 [place] TEMPERATURE 97.3 12/07/2024 11:01:58 [place] PULSE 66 12/07/2024 11:01:58 [facility] RESPIRATION 18 12/07/2024 11:01:58 [place] SYSTOLIC BLOOD PRESSURE 139 09/23/19 11:38:53 [place] DIASTOLIC BLOOD PRESSURE 74 025 11:38:53 [place] PULSE OXIMETRY 98 09/22/2024 11:38:53 [facility] WEIGHT 231.8 09/22/2024 11:38:53 [place] [facility] BMI 32 kg/m2 09/22/2024 11:38:53 [facility] PAIN 4 09/22/2024 11:38:53 [place] [facility] HEIGHT 72 09/22/2024 11:38:53 [place] [facility] TEMPERATURE 97.5 09/22/2024 11:38:53 [facility] PULSE 58 09/22/2024 11:38:53 [facility] RESPIRATION 18 09/22/2024 11:38:53 [place] [facility] SYSTOLIC BLOOD PRESSURE 144 08/18/19 11:47:00 ROMERO Samuels [facility] DIASTOLIC BLOOD PRESSURE 71 025 11:47:00 ROMERO HODGES [facility] PAIN 0 08/18/2024 11:47:00 ROMERO Samuels [facility] TEMPERATURE 97.8 08/18/2024 11:47:00 ROMERO Arvind [facility] PULSE 66 08/18/2024 11:47:00 ROMREO Samuels [facility] RESPIRATION 18 08/18/2024 11:47:00 ROMERO Samuels [facility] SYSTOLIC BLOOD PRESSURE 144 05/19/20 13:34:48 [facility] DIASTOLIC BLOOD PRESSURE 80 024 13:34:48 [facility] PULSE OXIMETRY 98 05/19/2024 13:34:48 [facility] WEIGHT 217.9 05/19/2024 13:34:48 [facility] BMI 30 kg/m2 05/19/2024 13:34:48 [facility] PAIN 0 05/19/2024 13:34:48 [facility] HEIGHT 72 05/19/2024 13:34:48 [facility] TEMPERATURE 97.5 05/19/2024 13:34:48 [facility] PULSE 70 05/19/2024 13:34:48 [facility] RESPIRATION 18 05/19/2024 13:34:48 [facility] Encounters Combined list of: 1) Encounters from Department of [facility] Affairs facilities going backup to the last 18 months, not all [place] inpatient encounters are included; 2) Encounters from the Department of Defense facilities going backup to 280 months. Location Location Details Encounter Type Encounter Number Reason For Visit Attending Provider ADM Date DC Date Status Disposition Source [place] [facility] SELF-[facility] EDUC & [place] 1 [place] [id number] Diagnos is: ICD-10- CM R26.81 Unstead iness on feet DEVI WELLS 08/06 [facility] [facility] PRO PHONE CALL 21-30 MIN [id number] Diagnos is: ICD-10- CM Z72.3 Lack of physica l exercis AR Torres S [facility] SELF-MGMT EDUC & [place] 1 [place] [id number] Diagnos is: ICD-10- CM Z72.3 Lack of physica l exercAR Munson S 08/20 [facility] EXERCISE CLASS [id number] Diagnos is: ICD-10- CM Z72.3 Lack of physica l exercis e LALIT,ANG SEEMA 08/24 [facility] EXERCISE CLASS [id number] Diagnos is: ICD-10- CM Z72.3 Lack of physica l exercis e LALIT,ANG SEEMA 08/25 [facility] HC PRO PHONE CALL 5-10 MIN [id number] MARISCALYI Vinson KATIE Low 08/25 [facility] [facility] Outpatient Encounter [id number] SAMPLES,SONNY HANNA 08/31 [place] [facility] Outpatient Encounter [id number] Devante GRAFF 08/31 [facility] SELF-MGMT EDUC & TRA[place] 1 [place] [id number] Diagnos is: ICD-10- CM Z72.3 Lack of physica l exercis e AR WINTER 09/02 [facility] EXERCISE CLASS [id number] Diagnos is: ICD-10- CM Z72.3 Lack of physica l exercis e GREG ANDREA 09/03 [facility] Outpatient Encounter [id number] 09/03 [facility] Outpatient Encounter [id number] SAMPLES,SONNY HANNA 09/04 [facility] OFFICE O/P EST MOD 30 MIN [id number] Diagnos is: ICD-10- CM 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 SWATIRAMYA BRY 09/08 [facility] EXERCISE CLASS [id number] Diagnos is: ICD-10- CM Z72.3 Lack of physica l exercis e AR WINTER 09/14 [facility] EXERCISE CLASS [id number] Diagnos is: ICD-10- CM Z72.3 Lack of physica l exercis e GREG ANDREA E 09/17 [facility] EXERCISE CLASS [id number] Diagnos is: ICD-10- CM Z72.3 Lack of physica l exercis e DEVI WELLS P 09/21 [facility] OFF[facility] O/P EST MOD 30 MIN [id number] Diagnos is: ICD-10- CM M25.569 Pain in 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 knee SAMPLES,RO CINDA CYNDI 09/23 [facility] [facility] EXERCISE CLASS [id number] 101 Diagnos is: ICD-10- CM Z72.3 Lack of physica l exercis e GREG ANDREA E 09/24 [facility] N [facility] EXERCISE CLASS 47866-2.65 [id number] Diagnos is: ICD-10- CM Z72.3 Lack of physica l exercis e MELISSA NULL 09/29 [facility] N [facility] Outpatient Encounter [id number] 09/30 [facility] N [facility] EXERCISE CLASS 95386-3.65 [id number] Diagnos is: ICD-10- CM Z72.3 Lack of physica l exercis e GREG ANDREA 10/01 [facility] N [facility] OFF/OP EST MAY X REQ PHY/QHP 30862-5.65 [id number] Soni NAILS 10/02 [facility] EXERCISE CLASS 55941-7.65 [id number] Diagnos is: ICD-10- CM Z72.3 Lack of physica l exercis e WILFRID ABREU 10/06 [facility] PRO PHONE CALL 5-10 MIN 96829-6.65 [id number] Diagnos is: ICD-10- CM Z72.3 Lack of physica l exercis e AR WINTER S 10/12 [facility] Outpatient Encounter [id number] 10/13 [facility] Outpatient Encounter [id number] [id number] 10/14 [facility] OFF/OP EST MAY X REQ PHY/QHP 52171-6.65 [id number] Diagnos is: ICD-10- CM Z71.9 Smoking Pipe Coater ing, unspeci NEGRITA Yuan 10/16 [facility] EXERCISE CLASS 02535-4.65 [id number] Diagnos is: ICD-10- CM Z72.3 Lack of physica l exercis e DEVI WELLS P 10/19 [facility] O/P EST LOW 20 MIN 01566-1.65 [id number] Diagnos is: ICD-10- CM 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, 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 SAMPLES,RO CINDA CYNDI 10/20 [facility] Outpatient Encounter [id number] 10/20 [facility] EXERCISE CLASS [id number] [id number] Diagnos is: ICD-10- CM Z72.3 Lack of physica l exercis e Michael WARNER 10/22 [facility] EXERCISE CLASS 06862-3.65 [id number] 522 Diagnos is: ICD-10- CM Z72.3 Lack of physica l exercis e RUSSELL,BENJ BROWNING P 10/26 [facility] EXERCISE CLASS 31399-7.65 [id number] Diagnos is: ICD-10- CM Z72.3 Lack of physica l exercis e GREG ANDREA E 10/29 [facility] EXERCISE CLASS 57475-2.65 [id number] Diagnos is: ICD-10- CM Z72.3 Lack of physica l exercis e RUSSELL,BENJ BROWNING P 11/02 [facility] EXERCISE CLASS 25677-6.65 [id number] 665 Diagnos is: ICD-10- CM Z72.3 Lack of physica l exercis e LALITLUIS CARLOS GIBSON SEEMA 11/03 [facility] EXERCISE CLASS 44703-9.65 [id number] 543 Diagnos is: ICD-10- CM Z72.3 Lack of physica l exercis e Michael WARNER MY Neal 11/05 [facility] EXERCISE CLASS 81309-6.65 [id number] 976 Diagnos is: ICD-10- CM Z72.3 Lack of physica l exercis e RUSSELL,BENJ BROWNING P 11/09 [facility] OFFICE O/P EST MOD 30 MIN 97709-2.65 [id number] 742 Diagnos is: ICD-10- CM F41.1 General ized anxiety disorde r TATE THOMPSON 11/19 [facility] Outpatient Encounter 34240-5.65 [id number] 1 11/19 [facility] OFF/OP CNSLTJ NEW/EST MOD 40 98365-4.65 [id number] 6 Diagnos is: ICD-10- CM R10.10 Upper abdomin al pain, 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 PEDRITO BLANC TTHEW H 11/20 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, 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 ALEXX ARANDA LLIAM E III 11/30 [facility] EXERCISE CLASS 47950-6.65 [id number] 561 Diagnos is: ICD-10- CM Z72.3 Lack of physica l exercis e RUSSELL,BENJ BROWNING P 01/11 [facility] EXERCISE CLASS 04711-2.65 [id number] 557 Diagnos is: ICD-10- CM Z72.3 Lack of physica l exercis e Michael WARNER 01/14 [facility] EXERCISE CLASS 47162-1.65 [id number] 682 Diagnos is: ICD-10- CM Z72.3 Lack of physica l exercis e RUSSELL,BENJ BROWNING P 01/18 [facility] EXERCISE CLASS 59718-9.65 [id number] 421 Diagnos is: ICD-10- CM Z72.3 Lack of physica l exercis e RUSSELL,BENJ BROWNING P 01/25 [facility] EXERCISE CLASS 73383-4.65 [id number] 227 Diagnos is: ICD-10- CM Z72.3 Lack of physica l exercis e RAMÓN ARCHER 01/26 [facility] Outpatient Encounter 92943-7.65 [id number] 4 01/27 [facility] Outpatient Encounter 52360-0.65 [id number] 7 Romeo BLANCO 01/27 [facility] EXERCISE CLASS 05944-4.65 [id number] 434 Diagnos is: ICD-10- CM Z72.3 Lack of physica l exercis e AR WINTER 02/02 [facility] Outpatient Encounter 74989-2.65 [id number] 4 02/04 [facility] DIV[facility] OFFICE O/P EST MOD 30 MIN 10301-7.65 [id number] 9 Diagnos is: ICD-10- CM Z01.818 Encount er for other preproc edural examina elizabeth ЮЛИЯLUCIEN Littlejohn 02/04 [facility] N [facility] OFFICE O/P EST SF 10 MIN 58345-8.65 [id number] 1 Diagnos is: ICD-10- CM R93.2 Abnorma l finding s on dx imaging of liver and biliary tract BRENDAN IRELAND ABRILChen S 02/04 [facility] N [facility] Outpatient Encounter 38666-7.65 [id number] 02/04 [facility] Outpatient Encounter 16739-5.65 [id number] JEF FARNSWORTH N E 02/04 [facility] EXERCISE CLASS 29730-2.65 [id number] 007 Diagnos is: ICD-10- CM Z72.3 Lack of physica l exercis e RUSSELL,BENJ BROWNING P 02/08 [facility] PT EDUCATION NOC GROUP 67571-3.65 [id number] 288 Diagnos is: ICD-10- CM Z72.3 Lack of physica l exercis e RAMÓN ARCHER NNAH J 02/09 [facility] PT EDUCATION NOC GROUP 03061-6.65 [id number] 706 Diagnos is: ICD-10- CM Z72.3 Lack of physica l exercis e GREG ANDREA E 02/11 [facility] [place] [address]-1.65 [id number] 2 Diagnos is: ICD-10- CM E11.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 ations Devante PRINGLE 02/23 [facility] DIVISION OFFICE O/P EST LOW 20 MIN 64073-3.65 [id number] 006 Diagnos is: ICD-10- CM F41.1 General ized anxiety disorde r SAMUELMARCIANO CarlosTATE 02/24 [facility] Outpatient Encounter 70450-0.65 [id number] 5 JENNIFER SAEZ 02/24 [facility] PT EDUCATION NOC GROUP 58704-4.65 [id number] 523 Diagnos is: ICD-10- CM Z72.3 Lack of physica l exercis e Michael WARNER 02/25 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 DELFINATRA NG K 03/01 [facility] Outpatient Encounter 57544-3.65 [id number] 2 03/01 [facility] Outpatient Encounter 81467-5.65 [id number] 4 03/02 [facility] EXERCISE CLASS 72897-9.65 [id number] 849 Diagnos is: ICD-10- CM Z72.3 Lack of physica l exercis e GREG ANDREA 03/04 [facility] PT EDUCATION NOC GROUP 85879-7.65 [id number] 562 Diagnos is: ICD-10- CM Z72.3 Lack of physica l exercis e LUIS CARLOS COHN 03/09 [facility] PHYSICAL PERFORMANC E TEST 33526-2.65 [id number] 720 Diagnos is: ICD-10- CM Z72.3 Lack of physica l exercis e AR WINTER Romeo 03/10 [facility] EXERCISE CLASS 31145-2.65 [id number] 145 Diagnos is: ICD-10- CM Z72.3 Lack of physica l exercis e Michael WARNER 03/11 [facility] Outpatient Encounter 18125-1.65 [id number] 2 03/15 [facility] EXERCISE CLASS 11222-7.65 [id number] 124 Diagnos is: ICD-10- CM Z72.3 Lack of physica l exercis e GEDULIG,MELGAR NNAH J 03/16 [facility] EXERCISE CLASS 20700-9.65 [id number] 404 Diagnos is: ICD-10- CM Z72.3 Lack of physica l exercis e GEDULIG,MELGAR NNAH J 03/18 [facility] PT EDUCATION NOC GROUP 04897-0.65 [id number] 831 Diagnos is: ICD-10- CM Z72.3 Lack of physica l exercis e LALITANG SEEMA 03/23 [facility] HC PRO PHONE CALL 5-10 MIN 83745-6.65 [id number] YI MARISCAL 03/23 [facility] PT EDUCATION NOC GROUP 91855-3.65 [id number] 550 Diagnos is: ICD-10- CM Z72.3 Lack of physica l exercis e GREG ANDREA E 03/25 [facility] OFF[facility] O/P EST MOD 30 MIN 37276-5.65 [id number].[id number] 872 Diagnos is: ICD-10- CM 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 SONNY Vernon CYNDI 03/26 [facility] EXERCISE CLASS 08538-0.65 [id number] 310 Diagnos is: ICD-10- CM Z72.3 Lack of physica l exercis e DEVI WELLS P 03/29 [facility] Outpatient Encounter 92000-6.65 [id number] 1 Diagnos is: ICD-10- CM 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 DIV[facility] OFFICE O/P EST MOD 30 MIN 07212-1.65 [id number] 7 Diagnos is: ICD-10- CM Z01.818 Encount er for other preproc edural examina FABRIZIO Shoemaker 04/12 [facility] Outpatient Encounter 18640-4.65 [id number] 5 04/14 [facility] OFF/OP EST MAY X REQ PHY/QHP 46094-5.65 [id number] 770 Diagnos is: ICD-10- CM 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 NEGRITA WARREN 04/14 [facility] PT EDUCATION NOC GROUP 91690-7.65 [id number] 379 Diagnos is: ICD-10- CM Z72.3 Lack of physica l exercis e Michael WARNER MY Neal 04/15 [facility] Outpatient Encounter 06103-6.65 [id number] 0 04/29 [facility] HC PRO PHONE CALL 5-10 MIN 40810-1.65 [id number] 0 Diagnos is: ICD-10- CM R93.2 Abnorma l finding s on dx imaging of liver and biliary tract PEOPLES,NI JEL C 05/04 [facility] Outpatient Encounter 03594-1.65 [id number] 0 05/04 [facility] PT EDUCATION NOC GROUP 19865-0.65 [id number] 958 Diagnos is: ICD-10- CM Z72.3 Lack of physica l exercis e RAMÓN ARCHER NNAH J 05/06 [facility] OFF/OP EST MAY X REQ PHY/QHP 05917-1.65 [id number] 714 Diagnos is: ICD-10- CM E11.40 Type 2 diabete s mellitu s with diabeti c neuropa thy, unsp NEGRITA WARREN 05/06 [facility] Outpatient Encounter 50307-1.65 [id number] 6 05/07 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 tion HILENRIQUE,LO RI D 05/10 [facility] OFFICE O/P EST MOD 30 MIN 23085-2.65 [id number] 9 Diagnos is: ICD-10- CM Z01.818 Encount er for other preproc edural examina tiGILLIAN Dasilva IEL P 05/10 [facility] Outpatient Encounter 11023-8.65 [id number] 4 05/10 [facility] Outpatient Encounter 32434-7.65 [id number] 8 GILLIAN BARNES IEL P 05/10 [facility] Outpatient Encounter 85720-4.65 [id number] 4 FANI OSCAR 05/10 [facility] Outpatient Encounter 30323-4.65 [id number] 1 JOSE RAFAEL MATHIS 05/10 [facility] Outpatient Encounter 68103-5.65 [id number] 9 05/10 [facility] LAPAROSCOP IC CHOLECYSTE CTOMY 95197-7.65 [id number] 2 RODRIGO RAMIREZ Wes 05/10 [facility] Outpatient Encounter 69896-7.65 [id number] 1 RODRIGO RAMIREZ Wes 05/10 [facility] Outpatient Encounter 16003-1.65 [id number] 1 CELESTINAFANI WILKINSON VERNON AQUION 05/10 [facility] HOSP IP/OBS SAME DATE MOD 70 45759-7.65 [id number] 8 Diagnos is: ICD-10- CM K81.1 Chronic cholecy stitis JOSE RAFAEL MATHIS 05/10 [facility] Outpatient Encounter 69968-7.65 [id number] 2 CHAROWILFRID SYLVIA Rodriguez 05/10 [facility] Inpatient Encounter 72769-1.65 [id number] 9 Admit Reason: CHOLECY SITCARMELA RUBIO 05/10 [facility] Inpatient Encounter 38933-9.65 [id number] 0 YAYO,BATU L 05/10 [facility] Inpatient Encounter 25815-4.65 [id number] 5 YAYO,BATU L 05/10 [facility] Inpatient Encounter 71336-3.65 [id number] 0 YAYO,BATU L 05/104 [facility] Inpatient Encounter 43987-8.65 [id number] 7 BRIAN HUERTA 05/10 [facility] Inpatient Encounter 66162-1.65 [id number] 1 RUSSELL ZUNIGA RALDINE 05/11 [facility] Inpatient Encounter 49393-4.65 [id number] 0 RUSSELL ZUNIGA RALDINE 05/11 [facility] Inpatient Encounter 33909-5.65 [id number] 5 RUSSELL ZUNIGA RALDINE 05/11 [facility] OFF/OP EST MAY X REQ PHY/QHP 42911-9.65 [id number] 7 Diagnos is: ICD-10- CM K81.1 Chronic cholecy stiJOSE RAFAEL Gilbert 05/11 [facility] Inpatient Encounter 80690-8.65 [id number] 4 YESI SWARTZ 05/11 [facility] Outpatient Encounter 36984-2.65 [id number] 9 SEYMOUR GOMEZ 05/11 [facility] Outpatient Encounter 44013-9.65 [id number] 1 05/12 [facility] OFF/OP EST MAY X REQ PHY/QHP 98308-3.65 [id number].[id number] 118 Diagnos is: ICD-10- CM Z71.9 Smoking Pipe Coater ing, unspeci NEGRITA Yuan 05/12 [facility] POSTOP FOLLOW-UP VISIT 05303-0.90 [id number] 8 Diagnos is: ICD-10- CM 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 [id number] 2 JENNIFER SAEZ 06/03 [facility] EXERCISE CLASS 55308-4.65 [id number] 886 Diagnos is: ICD-10- CM Z72.3 Lack of physica l exercis e DEVI WELLS P 06/07 [facility] PT EDUCATION NOC GROUP 41176-6.65 [id number] 698 Diagnos is: ICD-10- CM Z72.3 Lack of physica l exercis e Micahel WARNER 06/10 [facility] Outpatient Encounter 14956-9.65 [id number] 5 06/14 [facility] PT EDUCATION NOC GROUP 06475-2.65 [id number] 318 Diagnos is: ICD-10- CM Z72.3 Lack of physica l exercis e AR WINTER 06/21 [facility] PT EDUCATION NOC INDIVID 39955-9.65 [id number] 148 Diagnos is: ICD-10- CM Z72.3 Lack of physica l exercis e GREG ANDREA E 06/28 [facility] PT EDUCATION NOC GROUP 28557-6.65 [id number] 002 Diagnos is: ICD-10- CM Z72.3 Lack of physica l exercis e GEDULIG,MELGAR NNAH J 06/29 [facility] PT EDUCATION NOC GROUP 87695-2.65 [id number] 761 Diagnos is: ICD-10- CM Z72.3 Lack of physica l exercis e GREG ANDREA E 07/01 [facility] Outpatient Encounter 98859-7.65 [id number] 4 07/02 [facility] PT EDUCATION NOC GROUP 98446-0.65 [id number] 984 Diagnos is: ICD-10- CM Z72.3 Lack of physica l exercis e GEDULIG,MELGAR NNAH J 07/06 [facility] PT EDUCATION NOC GROUP 79873-4.65 [id number] 552 Diagnos is: ICD-10- CM Z72.3 Lack of physica l exercis e QUINLIJOSE LUIS,A MY L 07/08 [facility] PT EDUCATION NOC GROUP 39764-5.65 [id number] 458 Diagnos is: ICD-10- CM Z72.3 Lack of physica l exercis e LALIT,ANG SEEMA 07/13 [facility] PT EDUCATION NOC GROUP 35081-9.65 [id number] 755 Diagnos is: ICD-10- CM Z72.3 Lack of physica l exercis e DEVI WELLS P 07/19 [facility] PT EDUCATION NOC GROUP 61158-1.65 [id number] 778 Diagnos is: ICD-10- CM Z72.3 Lack of physica l exercis e AR WINTER S 07/20 [facility] Outpatient Encounter 91034-0.65 [id number] 07/20 [facility] PT EDUCATION NOC GROUP 44211-6.65 [id number] 269 Diagnos is: ICD-10- CM Z72.3 Lack of physica l exercis e WILFRID ABREU E 07/26 [facility] PT EDUCATION NOC GROUP 77875-6.65 [id number] 318 Diagnos is: ICD-10- CM Z72.3 Lack of physica l exercis e AR WINTER S 07/27 [facility] PT EDUCATION NOC GROUP 87197-0.65 [id number] 447 Diagnos is: ICD-10- CM Z72.3 Lack of physica l exercis e Michael WARNER 07/29 [facility] PT EDUCATION NOC GROUP 48079-0.65 [id number] 694 Diagnos is: ICD-10- CM Z72.3 Lack of physica l exercis e RAMÓN ARCHER 08/03 [facility] PT EDUCATION NOC GROUP 04282-9.65 [id number] 293 Diagnos is: ICD-10- CM Z72.3 Lack of physica l exercis e GREG ANDREA 08/05 [facility] EXERCISE CLASS 31331-5.65 [id number] 451 Diagnos is: ICD-10- CM Z72.3 Lack of physica l exercis e DEVI WELLS BROWNING P 08/16 [facility] ROMERO Samuels [facility] OFFICE O/P EST SF 10 MIN 03860-8.62 [id number] 65 Diagnos is: ICD-10- CM Z76.0 Encount er for issue of repeat prescri ption RISERLORENZO 08/18 ROMERO Samuels [facility] ROMERO Courtney [facility] HEARING AID REPAIR/MOD IFYING 96679-5.62 [id number] 97 Diagnos is: ICD-10- CM Z46.1 Encount er for fitting and adjustm ent of hearing aid DAVEGOYO SEVERIANOEDWINVALENCIA SAMI 08/19 [facility] Courtney [facility] PT EDUCATION NOC GROUP 59752-9.65 [id number] 236 Diagnos is: ICD-10- CM Z72.3 Lack of physica l exercis e AR WINTER 08/24 [facility] PT EDUCATION NOC GROUP 32619-5.65 [id number] 841 Diagnos is: ICD-10- CM Z72.3 Lack of physica l exercis e DEVI WELLS P 09/06 [facility] EXERCISE CLASS 67046-6.65 [id number] 490 Diagnos is: ICD-10- CM Z72.3 Lack of physica l exercis e AR WINTER S 09/14 [facility] PT EDUCATION NOC GROUP 15853-2.65 [id number] 297 Diagnos is: ICD-10- CM Z72.3 Lack of physica l exercis e Michael WARNER 09/16 [facility] N [facility] PT EDUCATION NOC GROUP 57620-7.65 [id number] 800 Diagnos is: ICD-10- CM Z72.3 Lack of physica l exercis e DEVI WELLS P 09/20 [facility] PH1 ASSMT&MGMT NQHP 5-10 63839-6.65 [id number] 4 YI MARISCALWALTER Low 09/21 [facility] OFFICE O/P EST MOD 30 MIN 79865-4.65 [id number] 880 Diagnos is: ICD-10- CM 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 SAMPLES,SONNY HANNA 09/22 [facility] EDU&TRN PT SELF-MGMT NQHP 1 37375-0.65 [id number] 053 Diagnos is: ICD-10- CM Z72.3 Lack of physica l exercis e GREG ANDREA 09/23 [facility] PT EDUCATION NOC GROUP 15859-2.65 [id number] 057 Diagnos is: ICD-10- CM Z72.3 Lack of physica l exercis e AR WINTER 09/27 [facility] PT EDUCATION NOC GROUP 75037-9.65 [id number] 158 Diagnos is: ICD-10- CM Z72.3 Lack of physica l exercis e Michael WARNER MY Neal 09/30 [facility] Outpatient Encounter 11820-2.65 [id number] 5 LAINE BRIDGES F 10/04 [facility] Outpatient Encounter 18009-6.65 [id number] 4 LAINE BRIDGES RLA F 10/04 [facility] PT EDUCATION NOC GROUP 34729-3.65 [id number] 676 Diagnos is: ICD-10- CM Z72.3 Lack of physica l exercis e RUSSELL,BENJ BROWNING P 10/04 [facility] EDU&TRN PT SELF-MGMT NQHP 1 23573-1.65 [id number] 562 Diagnos is: ICD-10- CM Z72.3 Lack of physica l exercis e RUSSELL,BENJ BROWNING P 10/18 [facility] PT EDUCATION NOC GROUP 65429-7.65 [id number] 270 Diagnos is: ICD-10- CM Z72.3 Lack of physica l exercis e RUSSELL,BENJ BROWNING P 11/01 [facility] HEARING AID REPAIR/MOD IFYING 52459-1.65 [id number] 3 Diagnos is: ICD-10- CM Z46.1 Encount er for fitting and adjustm ent of hearing aid JAMES BARRAGAN 11/05 [facility] EXERCISE CLASS 02381-1.65 [id number] 487 Diagnos is: ICD-10- CM Z72.3 Lack of physica l exercis e AR WINTER S 11/09 [facility] Outpatient Encounter 51131-0.65 [id number] 3 11/09 [facility] Outpatient Encounter 30459-8.65 [id number] 4 11/09 [facility] EXERCISE CLASS 01590-5.65 [id number] 653 Diagnos is: ICD-10- CM Z72.3 Lack of physica l exercis e WINTERRA MENJIVAR S 11/11 [facility] N [facility] PT EDUCATION NOC GROUP 14196-8.65 [id number] 960 Diagnos is: ICD-10- CM Z72.3 Lack of physica l exercis e AR WINTER S 11/16 [facility] Outpatient Encounter 71222-2.65 [id number] 3 11/16 [facility] Outpatient Encounter 11159-5.65 [id number] 4 11/26 [facility] Outpatient Encounter 06842-5.65 [id number] 11/29 [facility] PH1 ASSMT&MGMT NQHP 5-10 24655-4.65 [id number] 0 YI MARISCAL 12/03 [facility] PT EDUCATION NOC GROUP 98813-6.65 [id number] 103 Diagnos is: ICD-10- CM Z72.3 Lack of physica l exercis e DEVI WELLS P 12/06 [facility] OFF[facility] O/P EST MOD 30 MIN 20726-6.65 [id number].[id number] 001 Diagnos is: ICD-10- CM E11.40 Type 2 diabete s mellitu s with diabeti c neuropa thy, unsp SAMPLES,RO CINDA CYNDI 12/07 [facility] Outpatient Encounter 59237-4.65 [id number] 3 12/13 [facility] Outpatient Encounter 89454-2.65 [id number] 0 12/14 [facility] OFFICE O/P EST MOD 30 MIN 21758-1.65 [id number] 9 Diagnos is: ICD-10- CM Z98.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 ROXANNE ASHLEY 12/27 [facility] Outpatient Encounter 61688-4.65 [id number] 2 12/27 [facility] Outpatient Encounter 83347-2.65 [id number] 7 12/27 [facility] Outpatient Encounter 54087-3.65 [id number] 8 12/27 [facility] Outpatient Encounter 99431-0.65 [id number] 5 01/11 [facility] Outpatient Encounter 46594-3.65 [id number] 6 01/14 [facility] Outpatient Encounter 60925-3.65 [id number] 5 01/21 [facility] Procedures Combined list of: 1) Procedures from Department of Veterans Affairs facilities going back up to thelast 18 months, not all VA non-surgical procedures are included; 2) All procedures from the Department of Defense facilities. Procedure Procedure Type Code Date Perfomer Comments Naida e LAPAROSCOPIC CHOLECYSTECTOMY LAPAROSCOPIC CHOLECYSTECTOMY 94120 05/10/20 24 ALON CARR [facility] Social History Combined list of available smoking, tobacco, and other social history from Department of Defense and Veterans Affairs facilities. 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 [facility] Plan of Care List of future care activities from Department of [facility] Affairs facilities. Additional future care activities may be listed in the Assessment and Plan section. Date/Time Care Activity Care Activity Detail Facili ty 02/17/2025 AMBULATORY - SURGERY AMBULATORY - SURGERY [facility] Advance Directives List of completed, amended, or rescinded Advance Directives on record at Department of [facility] facilities. An actual copy of the Directive is not included. Date Advance Directive Provider Source 01/14/2022 ADVANCE DIRECTIVE DISCUSSION SHEA WINTER [facility]
--- OUTSIDE RECORDS SUMMARY | 2025-01-21 13:03 | XMS_ITS | Encounter Summary ---
Author Name [facility] [place] Address [address] [place] [address] Care Team Providers Care C Wpf Developer Name Role Phone KARON GARCIA Primary [...] B EXC) MAXIMO PALMA Jul 22, 2023 [id number] [phone] GABBI,GE DELONTE PATIENT AETNA PREFERRED PROVIDER ORGANIZAT ION (PPO) MAXIMO PALMA Apr 22, 2023 [id number] [phone] GABBI,GE DELONTE PATIENT AETNA PREFERRED PROVIDER ORGANIZAT ION (PPO) MAXIMO PALMA Jun 23, 2014 [id number] RUSSELL SEOTrudy PATIENT AETNA PHARMACY PRESCRIPT ION NONE Feb 11, 2017 NONE [id number] RUSSELL SEO PATIENT AETNA PHARMACY PRESCRIPT ION NONE Feb 11, 2017 NONE [id number] RUSSELL SEO PATIENT AETNA RX PRESCRIPT ION RX PLAN Jun 23, 2021 [id number] RUSSELL SEO PATIENT AETNA RX PRESCRIPT ION RX PLAN Jun 23, 2021 [id number] RUSSELL SEO PATIENT AETNA RX PRESCRIPT ION FEHBP Jun 23, 2014 [id number] RUSSELL SEO PATIENT AETNA [facility] PREFERRED PROVIDER ORGANIZAT ION (PPO) MAXIMO PALMA Jun 23, 2014 [id number] RUSSELL SEO PATIENT MEDICARE (WNR) MEDICARE (M) PART B May 23, 2008 PART B [id number] RUSSELL SEO PATIENT MEDICARE (WNR) MEDICARE (M) PART B May 23, 2008 PART B [id number] RUSSELL SEOD PATIENT MEDICARE (WNR) MEDICARE (M) PART A Apr 23, 2008 PART A [id number] RUSSELL SEOD PATIENT MEDICARE (WNR) MEDICARE (M) PART A Apr 23, 2008 PART A [id number] RUSSELL SEOD PATIENT MEDICARE (WNR) MEDICARE (M) PART A Apr 23, 2008 PART A [id number] RUSSELL SEOD PATIENT MEDICARE (WNR) MEDICARE (M) PART B Apr 23, 2008 PART B [id number] RUSSELL SEO PATIENT Selected Encounter This section includes the information on record at [place] for the Encounter. Date/Time Encounter Type Encounter Description Reason Provider Source May 10, 2024 11:49 AM Outpatient Encounter ADMIN PAT ACTIVTIES (MASNONCT) ARSLAN OSCAR Encounter Template Text not used by [facility] Plan of Treatment: Future Appointments (+ 6 months) and Future Tests (+/- 45 days) The Plan of Treatment section includes future care activities for the patient from all [place] [facility]. This section includes future appointments and future orders which are active, pending or scheduled. Future Appointments This section includes appointments that were scheduled to occur 6 months from the date of the Encounter, up to a maximum of 20 appointments. The data comes from all [facility]. Appointment Date/Time Appointment Type Appointme nt Facility Name May 12, 2024 01:00 PM AMBULATORY - MEDICINE [facility] May 19, 2024 01:30 PM AMBULATORY - SURGERY [facility] May 31, 2024 10:00 AM AMBULATORY - NONE [facility] Aug 18, 2024 11:41 AM AMBULATORY - MEDICINE EMERITA Gabi Daniel. [facility] Aug 19, 2024 08:30 AM AMBULATORY - NONE ROMERO Daniel. [facility] Sep 22, 2024 11:30 AM AMBULATORY - MEDICINE [facility] Active, Pending, and Scheduled Orders This section includes a listing of several types of active, pending, and scheduled orders, including clinic medications orders, diagnostic test orders, procedure orders and consult orders; where the start date of the order is 45 days before the date of the Encounter or 45 days after the date of theEncounter. The data comes from all [facility]. Test Date/Time Test Type Test Details Facility Name Mar 26, 2024 12:00 AM Laboratory - Chemi stry Order CYSTATIN C EGFR PANELS (STL-PB-MA) GREEN LI/HEP BLD/PLAS PLASMA SP [facility] Lab Results: +/- 30 days [...] Type Comment May 11, 2024 05:42 AM [facility] GLUCOSE,BLOOD-poct (STL) BLOOD Specimen Type: BLOOD Comment: Test Performed by: [id number] Meter #: [id number] Ordering Provider: DARY MORRISON Report Released Date/Time: May 11, 2024 06:36 AM Reporting Lab: [address] [address] Performing Lab: [address] [address] GLUCOSE,BLOOD-poct (STL) 154 mg/dL H 72-99 May 11, 2024 12:40 AM [facility] BASIC METABOLIC PANEL PLASMA Specimen Type: PL ASMA Comment: No hemolysis noted. Ordering Provider: EDDIE HAYES Report Released Date/Time: May 10, 2024 11:48 PM Reporting Lab: [address] [address] Performing Lab: [address] [address] CREATININE 1.14 mg/dL 0.7-1.3 UREA NITROGEN 17.3 mg/dL 9.0-25.0 GLUCOSE 236 mg/dL H 72-99 SODIUM 136 meq/L 136-145 POTASSIUM 4.3 meq/L 3.5-5 CHLORIDE 105 meq/L 98-107 CARBON DIOXIDE 21 meq/L L 22-31 CALCIUM 9.2 mg/dL 8.4-10.4 EGFR (CKD-EPI 2020) 64.6 >60 May 11, 2024 12:40 AM [facility] CBC BLOOD Specimen Type: BLOOD No comment entered. Ordering Provider: EDDIE HAYES Report Released Date/Time: May 10, 2024 11:48 PM Reporting Lab: [address] [address] Performing Lab: [address] [address] WBC 13.3 10*3/uL H 3.6-11.2 RBC 4.49 [...] 0.00-0. 20 May 10, 2024 08:21 PM [facility] GLUCOSE,BLOOD-poct (STL) BLOOD Specimen Type: BLOOD Comment: Test Performed by: [id number] Meter #: [id number] Ordering Provider: LORELEI MORRISON Report Released Date/Time: May 10, 2024 09:18 PM Reporting Lab: [address] [address] Performing Lab: [address] [address] GLUCOSE,BLOOD-poct (STL) 192 mg/dL H May 10, 2024 04:13 PM [facility] GLUCOSE,BLOOD-poct (STL) BLOOD Specimen Type: BLOOD Comment: Test Performed by: [id number] Meter #: [id number] Ordering Provider: LORELEI MORRISON Report Released Date/Time: May 10, 2024 05:13 PM Reporting Lab: [address] [address] Performing Lab: [address] [address] GLUCOSE,BLOOD-poct (STL) 156 mg/dL H 72-May 10, 2024 12:47 PM [facility] MRSA SURVL NARES DNA NARES Specimen Type: [...] May 10, 2024 12:47 PM Reporting Lab: [facility] [address] [facility] [address] Performing Lab: [address] [address] MRSA SURVL NARES DNA Negative Negative May 10, 2024 06:30 AM [facility] GLUCOSE,BLOOD-poct (STL) BLOOD Specimen Type: BLOOD Comment: Test Performed by: [id number] Meter #: [id number] Ordering Provider: BANDAR LONGORIA Report Released Date/Time: May 10, 2024 06:43 AM Reporting Lab: [facility] [address] [facility] [address] Performing Lab: [address] [address] GLUCOSE,BLOOD-poct (STL) 174 mg/dL H 72-99 Vital Signs: All taken on the encounter date This section contains inpatient and outpatient Vital Signs collected on the date of the Encounter. Date/Time Temperature Pulse Blood Pressure Respiratory Rate SP02 Pain Height Weight Body Mass Index Source May 10, 2024 08:19 PM 98.5 107 153/79 18 93 0 [facility] May 10, 2024 06:05 PM 97.5 105 149/79 18 94 [facility] May 10, 2024 01:23 PM 0 [facility] May 10, 2024 12:43 PM 97.5 84 159/73 18 96 [facility] May 10, 2024 06:30 AM 97.5 79 130/61 19 99 0 72 222 30 [facility] Advance Directives: All historical and [...] from all [facility]. Date Advance Directives Provider Source Jan 14, 2022 ADVANCE DIRECTIVE DISCUSSION SHEA WINTER [facility] Pathology Reports: +/- 30 days of [...] - - - $TEXT Submitted by: OSWALDO CRAR Date obtained: May 10, 2024 15:53 - [...] Performing Laboratory: Surgical Pathology Report Performed By: [facility] 15 [facility] CLIA# [id number] [address] [facility] [address] [place] [address] $FTR - - - - - - [...] - - LORETO SEO STANDARD FORM 515 ID:[id number] SEX:M :1945 AGE: 79 LOC:APFEE PCP: Lorelei Morrison MD /leobardo/ CONCETTA GOMEZ Pathologist Signed: 05/11/2024 12:18 CONCETTA GOMEZ [facility] Encounter Notes: All associated encounter notes This section contains the clinical notes associated to the Encounter. Date/Time Encounter Note(s) Provider Source May 10, 2024 11:49 AM ANESTHESIOLOGY RUSSEL WSHEET: LOCAL TITLE: ANES INTRA-OP FLOWSHEET ST STANDARD TITLE: ANESTHESIOLOGY FLOWSHEET DATE OF NOTE: MAY 10, 2024@11:49 ENTRY DATE: MAY 10, 2024@11:49:42 AUTHOR: ARSLAN OSCAR EXP COSIGNER: URGENCY: STATUS: COMPLETED Patient: LORETO SEO SSN: [id number] Date of Operation: 05/10/2024 Surgery Start Time: 05/10/2024 8:09 Surgery End Time: 05/10/2024 11:37 Anesthesia Care Start: 05/10/2024 7:38 Anesthesia Care End: 05/10/2024 11:52 Anesthesia Method: - General 05/10/2024 7:46 (Primary), Airway: Endotracheal Intubation, Technique: Direct Laryngoscopy, Level Of Consciousness: Sedated, Patient Position: Supine, Preoxygenated, Induction Type: Intravenous, Breathing Circuit: Flushing Adult, Ventilation by Mask: Easy to Ventilate [...] Cholecystectomy REPAIR BOWEL-SKIN FISTULA Diagnosis: Cholecystocolonic fistula Holding, Anesthesia, PACU Drugs: --------- Phenylephrine gtt: 7845.508 mcg FentaNYL: 100 mcg Lidocaine: 60 mg Propofol: 170 mg Sugammadex: 300 mg Rocuronium: 140 mg Phenylephrine: 500 mcg HYDROmorphone: 1.2 mg Ondansetron: 4 mg ceFAZolin: 2 g MetroNIDAZOLE: 500 mg Dexamethasone: 4 mg Etomidate: 10 mg Acetaminophen IVPB: 1 g Holding, Anesthesia, PACU Fluids: Ringers Lactated Solution: 1000 ml Estimated Blood Loss: 100 ml Orogastric: 200 ml Resources: Aquacel foam placed on don prominence to protect skin during surgery Safety Belt Staff: --------- LEISA MATHIS, SURGEON LEISA MATHIS, ATT. SURGEON BANDAR LONGORIA, Holding Nurse RODRIGO BARNES ANES. SUPER. YOST, GREGORY, PRIN. ANES. MAUL, REBECCA, RELIEF WORKING MANAGER TACOS MARIE, [facility] WORKING MANAGER Anesthesia Procedure: ----- Procedure 05/10/2024 6:39 In Situ, Line Number: [...] Chlorhexidine Technique: Standard Securement: Sterile Occlusive Dressing Procedure Date: 05/10/2024 Procedure Start Time: Procedure End Time: /leobardo/ ARSLAN OSCAR PRODUCTION LINE OPERATOR Signed: 05/10/2024 11:49 ARSLAN OSCAR [facility]
--- OUTSIDE RECORDS SUMMARY | 2025-01-21 13:03 | XMS_ITS | Encounter Summary ---
Author Name [facility] [place] Address [address] [place] [address] Care Team Providers Care Library Supervisor Name Role Phone KARON GARCIA Primary [...] B EXC) MAXIMO PALMA Jul 22, 2023 [id number] [phone] GABBI,GE DELONTE PATIENT AETNA PREFERRED PROVIDER ORGANIZAT ION (PPO) MAXIMO PALMA Apr 22, 2023 [id number] [phone] GABBIRUSSELL RUSHTrudy PATIENT AETNA PREFERRED PROVIDER ORGANIZAT ION (PPO) MAXIMO PALMA Jun 23, 2014 [id number] RUSSELL SEOTrudy PATIENT AETNA PHARMACY PRESCRIPT ION NONE Feb 11, 2017 NONE [id number] RUSSELL SEO PATIENT AETNA PHARMACY PRESCRIPT ION NONE Feb 11, 2017 NONE [phone] RUSSELL SEO PATIENT AETNA RX PRESCRIPT ION RX PLAN Jun 23, 2021 [id number] RUSSELL SEO PATIENT AETNA RX PRESCRIPT ION RX PLAN Jun 23, 2021 [id number] RUSSELL SEO PATIENT AETNA RX PRESCRIPT ION FEHBP Jun 23, 2014 [id number] RUSSELL SEO PATIENT AETNA [facility] PREFERRED PROVIDER ORGANIZAT ION (PPO) MAXIMO PALMA Jun 23, 2014 [id number] RUSSELL SEO PATIENT MEDICARE (WNR) MEDICARE () PART B May 23, 2008 PART B [id number] RUSSELL SEO PATIENT MEDICARE (WNR) MEDICARE () PART B May 23, 2008 PART B [id number] RUSSELL SEO PATIENT MEDICARE (WNR) MEDICARE () PART A Apr 23, 2008 PART A [id number] RUSSELL SEO PATIENT MEDICARE (WNR) MEDICARE () PART A Apr 23, 2008 PART A [id number] RUSSELL SEO PATIENT MEDICARE (WNR) MEDICARE () PART A Apr 23, 2008 PART A [id number] [phone] RUSSELL SEO PATIENT MEDICARE (WNR) MEDICARE () PART B Apr 23, 2008 PART B [id number] [phone] RUSSELL SEO PATIENT Selected Encounter This section includes the information on record at [place] for the Encounter. Date/Time Encounter Type Encounter Description Reason Provider Source November 16, 2024 10:30 AM PT EDUCATION NOC GROUP HEALTH/WELLBEING SRVS ICD-10-CM Z72.3 Lack of physical exercise [place] IHE Encounter Template Text not used by [place] Assessments - Encounter Diagnoses This section includes the primary and secondary diagnoses documented for the Encounter. Date/Time Primary/Secondary Diagnosis Diagnosis Name Provider Source November 16, 2024 12:06 PM PRIMARY Lack of physical exercise VICKI PAUL [facility] Plan of Treatment: Future [...] 07, 2024 11:00 AM AMBULATORY - MEDICINE [facility] Dec 27, 2024 10:30 AM AMBULATORY - MEDICINE [facility] Jan 07, 2025 08:00 AM AMBULATORY - NONE [facility] Feb 17, 2025 01:00 PM AMBULATORY - SURGERY [facility] Mar 24, 2025 02:30 PM AMBULATORY - MEDICINE [facility] Active, Pending, and Scheduled Orders [...] 14, 2024 01:30 PM Consult Order [facility] Manager's [facility] Advance Directives: All historical and [...] DISCUSSION SHEA WINTER [facility] Encounter Notes: All associated encounter notes This section contains the clinical notes associated to the Encounter. Date/Time Encounter Note(s) Provider Source November 16, 2024 10:30 AM CARE COORDINATION HOME TELEHEALTH VIDEO VISIT NOTE: LOCAL TITLE: GEROFIT VVC SUPERVISED EXERCISE NOTE [facility] STANDARD TITLE: CARE COORDINATION HOME TELEHEALTH VIDEO VISIT NO DATE OF NOTE: NOVEMBER 16, 2024@10:30 ENTRY DATE: NOVEMBER 16, 2024@11:54:46 AUTHOR: VICKI PAUL EXP COSIGNER: URGENCY: STATUS: COMPLETED Gerofit Telehealth Remote Supervised Exercise Note Provided informed consent to receive treatment via Telehealth. mailed and has been made verbally aware of [facility] [place] practices.[place] participated remotely in the Gerofit exercise program today through Zoom. Activities were focused on progression of their individual exercise prescription (cardiorespiratory fitness training, strength training, etc.) and group based exercise sessions to include, but not limited to: flexibility training, balance training & functional circuit training. Exercise class was instructed by Mi Winter and Vicki Paul observed class for safety monitoring. Any questions/concerns [...] knowledge. Total Duration (minutes) for session: 90 min /leobardo/ VICKI PAUL Physical Therapist Signed: 11/16/2024 12:08 VICKI PAUL [facility]
--- OUTSIDE RECORDS SUMMARY | 2025-01-21 13:03 | XMS_ITS | Encounter Summary ---
Author Name [place] Address [address] [place] [address] Care Team Providers Care [employer] Name Role Phone KARON GARCIA Primary Care [...] B EXC) MAXIMO PALMA Jul 22, 2023 [id number] GABBI,GE DELONTE PATIENT AETNA PREFERRED PROVIDER ORGANIZAT ION (PPO) MAXIMO PALMA Apr 22, 2023 [id number] [phone] GABBI,GE DELONTE PATIENT AETNA PREFERRED PROVIDER ORGANIZAT ION (PPO) MAXIMO PALMA Jun 23, 2014 [id number] RUSSELL SEOTrudy PATIENT AETNA PHARMACY PRESCRIPT ION NONE Feb 11, 2017 NONE [id number] RUSSELL SEO PATIENT AETNA PHARMACY PRESCRIPT ION NONE Feb 11, 2017 NONE [id number] RUSSELL SEO PATIENT AETNA RX PRESCRIPT ION RX PLAN Jun 23, 2021 [id number] RUSSELL SEO PATIENT AETNA RX PRESCRIPT ION RX PLAN Jun 23, 2021 [id number] RUSSELL SEO PATIENT AETNA RX PRESCRIPT ION FEHBP Jun 23, 2014 [id number] RUSSELL SEO PATIENT AETNA [facility] PREFERRED PROVIDER ORGANIZAT ION (PPO) MAXIMO PALMA Jun 23, 2014 [id number] RUSSELL SEO PATIENT MEDICARE (WNR) MEDICARE () PART B May 23, 2008 PART B [id number] RUSSELL SEO PATIENT MEDICARE (WNR) MEDICARE () PART B May 23, 2008 PART B [id number] RUSESLL SEOD PATIENT MEDICARE (WNR) MEDICARE () PART A Apr 23, 2008 PART A [id number] [phone] RUSSELL SEO PATIENT MEDICARE (WNR) MEDICARE () PART A Apr 23, 2008 PART A [id number] [phone] RUSSELL SEO PATIENT MEDICARE (WNR) MEDICARE () PART A Apr 23, 2008 PART A [id number] [phone] RUSSELL SEOD PATIENT MEDICARE (WNR) MEDICARE () PART B Apr 23, 2008 PART B [id number] RUSSELL SEO PATIENT Selected Encounter This section includes the information on record at [place] for the Encounter. Date/Time Encounter Type Encounter Description Reason Provider Source Mar 11, 2024 10:30 AM EXERCISE CLASS HEALTH/WELLBEING [facility]VS ICD-10-CM Z72.3 Lack of physical exercise JENELLE WARNER Encounter Template Text not used by [place] Assessments - Encounter Diagnoses This section includes the primary and secondary diagnoses documented for the Encounter. Date/Time Primary/Secondary Diagnosis Diagnosis Name Provider Source Mar 22, 2024 07:27 PM PRIMARY Lack of physical exercise JENELLE WARNER [facility] Plan of Treatment: Future [...] data comes from all [facility]. Appointment Date/Time Appointment Type Appointme nt Facility Name Mar 26, 2024 10:30 AM AMBULATORY - MEDICINE [facility] Apr 12, 2024 01:00 PM AMBULATORY - SURGERY [facility] Apr 14, 2024 02:00 PM AMBULATORY - MEDICINE [facility] May 06, 2024 11:00 AM AMBULATORY - MEDICINE [facility] May 10, 2024 06:00 AM AMBULATORY - NONE [facility] May 12, 2024 01:00 PM AMBULATORY - MEDICINE [facility] May 19, 2024 01:30 PM AMBULATORY - SURGERY [facility] May 31, 2024 10:00 AM AMBULATORY - NONE [facility] Aug 18, 2024 11:41 AM AMBULATORY - MEDICINE EMERITA Samuels [facility] Aug 19, 2024 08:30 AM AMBULATORY - NONE ROMERO Samuels [facility] Active, Pending, and Scheduled Orders [...] data comes from all [facility]. Test Date/Time Test Type Test Details Facility Name Mar 01, 2024 12:00 AM Laboratory - Blood Bank Order TYPE & SCREEN - LAB BLOOD SP [facility] Mar 26, 2024 12:00 AM Laboratory - Chemi stry Order CYSTATIN C EGFR PANELS (STL-PB-MA) JADE WAGNER/HEP BLD/PLAS [facility] Lab Results: +/- 30 days of [...] Mar 26, 2024 11:30 AM [facility] MICRAL/CREAT PROFILE (STL) URINE Specimen Typ e: URINE Comment: uALB/CREAT Ratio Unable to be calculated Unable to calculate due to Microalbumin < 5.0 mg/L Ordering Provider: STEVEN SCHMIDT Report Released Date/Time: Mar 26, 2024 08:32 AM Reporting Lab: [address] [address] Performing Lab: [address] [address] URINE ALBUMIN (PB-STL) <5.0 mg/L uACR (STL) comment mg/g 0-29 CREATININE URINE/OTHERS 75.5 mg/dL 63-16 6 Mar 01, 2024 12:51 PM [facility] PT/INR NEW (STL-MA) PLASMA Specimen Type: PLAS MA No comment entered. Ordering Provider: LEISA MATHIS Report Released Date/Time: Mar 01, 2024 12:16 PM Reporting Lab: [facility] [address] [place] [address] Performing Lab: [address] [address] PROTIME 12.7 s H 9.4-12.5 INR VALUE 1.1 {INR} Mar 01, 2024 12:51 PM [facility] COMPREHENSIVE METABOLIC PANEL PLASMA Specimen Type: PLASMA Comment: No hemolysis noted. Ordering Provider: LEISA MATHIS Report Released Date/Time: Mar 01, 2024 12:16 PM Reporting Lab: [place] [id number] [facility] [address] Performing Lab: [address] [address] CREATININE 1.37 mg/dL H 0.7-1.3 UREA NITROGEN [...] Mar 01, 2024 12:[address] [facility] CBC BLOOD Specimen Type: BLOOD No comment entered. Ordering Provider: LEISA MATHIS Report Released Date/Time: Mar 01, 2024 12:16 PM Reporting Lab: [address] [address] Performing Lab: [address] [address] WBC 9.4 10*3/uL 3.6-11.2 RBC 4.90 10*6/uL [...] 0.60 BASOPHILS, ABSOLUTE 0.06 10*3/uL 0.00-0. 20 Advance Directives: All historical and current Section Date Range: From patient's date of to the date document was created. This section includes ALL of a patient's completed or amended [place] Advance and Rescinded Directives. The entries below indicate that a directive exists for the patient, but an actual copy is not included with this document. The data comes from all [place] facilities. Date Advance Directives Provider Source Jan 14, 2022 ADVANCE DIRECTIVE DISCUSSION SHEA WINTER [facility] Radiology Reports: +/- 30 days [...] the Encounter. The data comes from all [place] treatment facilities. Date/Time Radiology Report Provider Source Mar 01, 2024 01:21 PM CHEST X-RAY, 2 VIE WS: GERALDO SEOLENORA [facility] [id number] -[id number] M Exm Date: MAR 01, 2024@13:21 Req Phys: ALY GO Loc: [facility] HEPATOBILIARY (Req Img Loc: [facility] SUITE Service: [address] [address] (Case [id number] COMPLETE) CHEST X-RAY, 2 VIEWS (RAD Detailed) CPT:62678 Reason for Study: preop Clinical History: Report Status: Verified Date Reported: MAR 01, 2024 Date Verified: MAR 01, 2024 Career Development Consultant E-Sig:/ES/Christopher Dumont MD. FACR. Report: History: [...] Interpreting Staff: Christopher Dumont MD. FACR, Neuroradiologist (Career Development Consultant) /CHRISTOPHER BENNETT [facility] Encounter Notes: All associated encounter notes This section contains the clinical notes associated to the Encounter. Date/Time Encounter Note(s) Provider Source Mar 11, 2024 01:35 PM CARE COORDINATION HOME TELEHEALTH VIDEO VISIT NOTE: LOCAL TITLE: GEROFIT VVC SUPERVISED EXERCISE NOTE ST STANDARD TITLE: CARE COORDINATION HOME TELEHEALTH VIDEO VISIT NO DATE OF NOTE: MAR 11, 2024@13:35 ENTRY DATE: MAR 11, 2024@13:36:21 AUTHOR: JENELLE WARNER EXP COSIGNER: URGENCY: STATUS: COMPLETED Gerofit Telehealth Remote Supervised Exercise Note [place] Provided informed consent to receive treatment via Telehealth. [place] mailed and has been made verbally aware of [facility] [place] practices. participated remotely in the Gerofit exercise program today through [place] Virtual Blood Bank Manager. Activities were focused on progression of their individual exercise prescription (cardiorespiratory fitness training, strength training, etc.) and group based exercise sessions to include, but not limited to: flexibility training, balance training & functional circuit training. This date we also had a guest instructor complete a Torsten Chi segment with veterans. Exercise participation was supervised remotely by Nate Bryan PT and Jenelle Warner PT. Idania Amaya instructed the Torsten Chi segment, Nate Bryan PT instructed seated exercises and Jenelle Warner DPT instructed cardio, strength and stretching. Any questions/concerns were addressed with the patient. Modifications were made to programming as appropriate to suit Veterans individual needs, preferences, and whole health concerns. Total Duration (minutes) for session: 90 Total Duration (minutes) for session: 90 Address: [address] [place] [address] [place] [address] Contact Information: [place] [phone] /leobardo/ JENELLE WARNER Physical Therapist Signed: 03/11/2024 13:55 Receipt Acknowledged By: 03/11/2024 15:47 /leobardo/ NATE BRYAN DPT, GCS JENELLE WARNER Courtney [facility]
[2025-01-21 13:07] LABS: Troponin I 0.014 ng/mL (0.000-0.034)
--- NOTE | 2025-01-21 13:13 | PC.NURSE ---
patient given urinal and advised we need a urine sample.
[2025-01-21 13:37] LABS: CRP 0.6 mg/dL (<1.0)
[2025-01-21 13:43] LABS: NT Pro B Type Natriuretic Pept 87 pg/mL (19.9-100)
[2025-01-21 13:45] LABS: Troponin I 0.013 ng/mL (0.000-0.034)
[2025-01-21] MEDS: SODIUM CHLORIDE 0.9% IV 300 ML 999 ML IV CONT (13:54)
[2025-01-21] MEDS: VANCOMYCIN 1,250 MG/NS 250 ML 1,250 MG/250 ML BAG 166.67 MG IVPB ×2 (14:00→16:00)
[2025-01-21 14:06] LABS: Add Urine Microscopic? NO; Appearance Urine Clear (Clear); Glucose Urine UA 3+ mg/dL (Negative); Leukocyte Esterase Ur Negative LEU/UL (Negative); Nitrate Urine Negative (Negative); Specific Grav Ur 1.042 (1.001-1.035)
--- NOTE | 2025-01-21 15:40 | PC.NURSE ---
lab called to add on BMP and HGB A1C
[2025-01-21 15:44] LABS: Anion Gap 6 mmol/L (4-12); Blood Urea Nitrogen 17 mg/dL (9-20); Calcium 7.7 mg/dL (8.4-10.2); Carbon Dioxide 21 mmol/L (22-30); Chloride 109 mmol/L (98-107); Estimated CRCL calculation 77 ml/min; Estimated Glomerular Filt Rate > 60; Glucose 103 mg/dL (65-110); Potassium 3.9 mmol/L (3.4-5.0); Sodium 136 mmol/L (137-145)
[2025-01-21 15:47] LABS: Hemoglobin A1C 6.5 % (<5.7)
--- NOTE | 2025-01-31 17:00 | PC.NURSE ---
1300 - pt discharged prior to CC rounds. Pts lives with daughter, spoke with her denies any quetions.
== END 2025-01-21 18:00 | disposition home or self-care (01) ==
PROVIDERS: Emergency Medicine; Emergency Provider Registered Nurse
DX: E11.65 Type 2 diabetes mellitus with hyperglycemia (principal); R42 Dizziness and giddiness; E86.0 Dehydration; E78.5 Hyperlipidemia, unspecified; Z95.5 Presence of coronary angioplasty implant and graft; Z96.651 Presence of right artificial knee joint; Z79.84 Long term (current) use of oral hypoglycemic drugs; R91.8 Other nonspecific abnormal finding of lung field; I44.0 Atrioventricular block, first degree; R94.31 Abnormal electrocardiogram [ECG] [EKG]
CPT/HCPCS: 36415; 71046; 71275; 73564; 80048; 80053; 81003; 82010; 82948; 83036; 83605; 83735; 83880; 84100; 84484; 85025; 85610; 85730; 86140; 93005; 96365; 96366; 99284; J3373; J7030; Q9967

== ENCOUNTER 2025-01-28 15:10 | Inpatient (IN) | payer MEDICARE, OTHER, SELFPAY ==
[2025-01-28] VITALS (17 sets, daily range): BP systolic 103–164; BP diastolic 51–83; PULSE 63–105; RESP 15–20; TEMP 36.6–37.2; O2SAT 94–100; BMI 31.0
--- NOTE | ~2025-01-28 | XR_ITS ---
CHEST RADIOGRAPH CLINICAL HISTORY: Orthostatic . COMPARISON: 01/21/2025 TECHNIQUE: Single portable view of the chest. FINDINGS The cardiomediastinal silhouette is unremarkable. Increased interstitial markings are identified bilaterally, findings suggesting mild pulmonary vascul ar congestion. The lungs are otherwise clear. IMPRESSION: Mild pulmonary vascular congestion, without focal infiltrate or effusion. Reviewed, dictated and finalized at location A.
--- OUTSIDE RECORDS SUMMARY | 2025-01-28 15:14 | XMS_ITS ---
Author Name [facility] [place] [facility] Address [address] [place] [address] Care Team Providers Care Muck Farmer Name Role Phone KARON GARCIA Primary Care [...] B EXC) MAXIMO PALMA Jul 22, 2023 [id number] [phone] GABBI,RUSSELL MARTEL PATIENT [employer] PREFERRED PROVIDER ORGANIZAT ION (PPO) MAXIMO PALMA Apr 22, 2023 [id number] [phone] GABBIRUSSELL DELONTE PATIENT [employer] PREFERRED PROVIDER ORGANIZAT ION (PPO) MAXIMO PALMA Jun 23, 2014 [id number] RUSSELL SEOTrudy PATIENT [employer] PHARMACY PRESCRIPT ION NONE Feb 11, 2017 NONE [id number] [phone] RUSSELL SEO PATIENT [employer] PHARMACY PRESCRIPT ION NONE Feb 11, 2017 NONE [id number] RUSSELL SEO PATIENT [employer] RX PRESCRIPT ION RX PLAN Jun 23, 2021 [id number] RUSSELL SEO PATIENT [employer] RX PRESCRIPT ION RX PLAN Jun 23, 2021 [id number] RUSSELL SEO PATIENT [employer] RX PRESCRIPT ION FEHBP Jun 23, 2014 [id number] RUSSELL SEO PATIENT AETNA [facility] PREFERRED PROVIDER ORGANIZAT ION (PPO) MAXIMO PALMA Jun 23, 2014 [id number] RUSSELL SEO PATIENT MEDICARE (WNR) MEDICARE (M) PART B May 23, 2008 PART B [id number] [phone] RUSSELL SEO PATIENT MEDICARE (WNR) MEDICARE (M) PART B May 23, 2008 PART B [id number] [phone] RUSSELL SEOD PATIENT MEDICARE (WNR) MEDICARE (M) PART A Apr 23, 2008 PART A [id number] [phone] RUSSELL SEO PATIENT MEDICARE (WNR) MEDICARE (M) PART A Apr 23, 2008 PART A [id number] RUSSELL SEO PATIENT MEDICARE (WNR) MEDICARE (M) PART A Apr 23, 2008 PART A [id number] [phone] RUSSELL SEO PATIENT MEDICARE (WNR) MEDICARE (M) PART B Apr 23, 2008 PART B [id number] [phone] RUSSELL SEO PATIENT Selected Encounter This section includes the information on record at [place] for the Encounter. Date/Time Encounter Type Encounter Description Reason Pro vider Source Jan 27, 2025 02:28 PM Outpatient Encounter ADMIN PAT ACTIVTIES (MASNONCT) IHE [...] The data comes from all [place] treatment [facility]. Appointment Date/Time Appointment Type Appointme nt Facility Name Feb 17, 2025 01:00 PM AMBULATORY - SUR[facility]ERY [facility] Mar 24, 2025 02:30 PM AM[facility]ULATORY - MEDICINE [facility] Active, Pending, and Scheduled Orders This section includes a listing of several types of active, pending, and scheduled orders, including clinic medications orders, diagnostic test orders, procedure orders and consult orders; where the start date of the order is 45 days before the date of the Encounter or 45 days after the date of theEncounter. The data comes from all [place] treatment [facility]. Test Date/Time Test Type Test Details Facility Name Jan 13, 2025 11:32 AM Consult Order PROSTHETIC S REQUEST - [facility] Cons Saw [facility] Advance Directives: [...] Date/Time Encounter Note(s) Provider Source Jan 27, 2025 02:28 PM ADMINISTRATIVE NOT E: LOCAL TITLE: CONTACT NOTE [facility] STANDARD TITLE: ADMINISTRATIVE NOTE DATE OF NOTE: JAN 27, 2025@14:28 ENTRY DATE: JAN 27, 2025@14:28:15 AUTHOR: ANTIONETTE WILKINS EXP COSIGNER: URGENCY: STATUS: COMPLETED FAX RECEIVED FROM [facility], PLACED IN LEAD WEB DEVELOPER FOLDER FOR REVIEW /es/ ANTIONETTE WILKINS ADVANCED FLOTATION TENDER Signed: 01/27/2025 14:29 Receipt Acknowledged By: 01/27/2025 14:41 /es/ ZEINAB MARISCAL LPN LICENSED PRACTICAL NURSE 01/28/2025 13:55 /es/ STEVEN SCHMIDT MSN, THEATRE PROGRAM DIRECTOR, COKE CRUSHER OPERATOR-BC NURSE PRACTITIONER ANTIONETTE WILKINS [facility]
--- OUTSIDE RECORDS SUMMARY | 2025-01-28 15:15 | XMS_ITS | Continuity of Care Document ---
Author Name [facility] Organization [facility] Care Team Providers Care Community Development Aide Name Role Phone [facility] Unavailable Unavailable Problems Combined list of problems from Department of Defense and [facility] Affairs facilities. It does not include entries that were removed or entered in error. Problem Status Onset Date Problem Type Date of Resolution Comments Source Abdominal aortic aneurysm Active Condition [facility] Aneurysm of thoracic aorta Active Condition [facility] Benign essential hypertension Active Condition [facility] Benign Prostatic Hypertrophy without Outflow Obstruction ([facility] [id number]) Active Condition [facility] CAD - Coronary Artery Disease ([facility] [id number]) Active Condition [facility] Callous character Active Condition [facility] Colonic fistula Active Condition [facility] Coron[facility] arteriosclerosis Active Condition [facility] Coronary artery disease Active Condition [facility] Dementia ([facility] [id number]) Active Condition [facility] Diabetes mellitus Active Condition [facility] Diabetes Mellitus Type 2 ([facility]CT [id number]) Active Condition [facility] Diabetic neuropathy Active Condition [facility] Diabetic neuropathy with neurologic complication Active Condition [facility] Dyslipidemia Active Condition [facility] Gastroesophageal reflux disease Active Condition [facility] Gastroesophageal Reflux Disease Active Condition [facility] [facility] GERD - Gastro-Esophageal Reflux Disease ([facility] [id number]) Active Condition [facility] Hearing loss Active Condition [facility] [facility] History of left hip replacement Active Condition [facility] HTN - Hypertension ([facility]CT [id number]) Active Condition [facility] Hyperlipidemia Active Condition [facility] Hyperlipidemia ([facility] [id number]) Active Condition [facility] Hypertensive disorder Active Condition [facility]nee pain Active Condition [facility] Loose stool Active Condition [facility] MENDO[facility] OA - Osteoarthritis ([facility] [id number]) Active Condition [facility] Samuels [facility] Obesity Active Condition [facility] Osteoarthritis Active Condition [facility] Active Condition [facility] Stented artery Active Condition [facility] Valdez [facility] Vitamin D deficiency Active Condition A SHANIA Samuels [facility] Diagnosis: ICD-10-CM Z98.890 Other specified postprocedural states Active Diagnosis [facility] Diagnosis: ICD-10-CM E11.40 Type 2 diabetes mellitus with diabetic neuropathy, unsp Active Diagnosis [facility] Diagnosis: ICD-10-CM Z72.3 Lack of physical exercise Active Diagnosis [facility] Diagnosis: ICD-10-CM Z46.1 Encounter for fitting and adjustment of hearing aid Active Diagnosis [facility] Diagnosis: ICD-10-CM I25.83 Coronary atherosclerosis due to lipid rich plaque Active Diagnosis [facility] Diagnosis: ICD-10-CM Z76.0 Encounter for issue of repeat prescription Active Diagnosis [facility] Perez [facility] Diagnosis: ICD-10-CM 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 Diagnosis [facility] Diagnosis: ICD-10-CM Z71.9 Counseling, unspecified Active Diagnosis [facility] Diagnosis: ICD-10-CM K81.1 Chronic cholecystitis Active Diagnosis [facility] Admit Reason: CHOLECYSITIS Active Diagnosis [facility] Diagnosis: ICD-10-CM Z01.818 Encounter for other preprocedural examination Active Diagnosis [facility] Diagnosis: ICD-10-CM K80.20 Calculus of gallbladder w/o cholecystitis w/o obstruction Active Diagnosis [facility] Diagnosis: ICD-10-CM R93.2 Abnormal findings on dx imaging of liver and biliary tract Active Diagnosis [facility] Diagnosis: ICD-10-CM F41.1 Generalized anxiety disorder Active Diagnosis [facility] Diagnosis: ICD-10-CM E11.9 Type 2 diabetes mellitus without complications Active Diagnosis [facility] Diagnosis: ICD-10-CM K82.9 Disease of gallbladder, unspecified Active Diagnosis [facility] Diagnosis: ICD-10-CM R10.10 Upper abdominal pain, unspecified Active Diagnosis [facility] Diagnosis: ICD-10-CM E27.9 Disorder of adrenal gland, unspecified Active Diagnosis [facility] Diagnosis: ICD-10-CM M25.569 Pain in unspecified knee Active Diagnosis [facility] Diagnosis: ICD-10-CM L82.0 Inflamed seborrheic keratosis Active Diagnosis [facility] Diagnosis: ICD-10-CM R26.81 Unsteadiness on feet Active Diagnosis [facility] Medications Combined list of outpatient medications from [...] OPHEN (APAP) FROM ALL MEDS. ORAL 06/10/2024 [id number] CARMELA MORRISON 2023 100 [facility] AMLODIPINE BESYLATE 10MG TAB TAKE ONE-HALF TABLET BY MOUTH EVERY DAY ORAL ACTIVE SANDEE REYNOLDS 2018 [facility] ASPIRIN 81MG TAB,EC TAKE ONE TABLET BY MOUTH ONCE A DAY TAKE WITH FOOD. ORAL ACTIVE 03/27/2025 [id number] SAMPLES,R OBERTA CYNDI 2023 120 [facility] ASPIRIN 81MG TAB,EC TAKE ONE TABLET BY MOUTH ONCE A DAY TAKE WITH FOOD. ORAL DISCONT INUED 02/11/2024 [id number] SAMPLES,R OBERTA CYNDI 2022 120 [facility] [...] FOR HIGH CHOLESTE ROL ORAL ACTIVE 03/27/2025 [id number] 5 SAMPLES,R OBERTA CYNDI 2023 90 [facility] ATORVASTATI N CA 80MG TAB TAKE ONE TABLET BY MOUTH EVERY EVENING FOR HIGH CHOLESTE ROL ORAL DISCONT INUED 02/11/2024 [id number] SAMPLES,R OBERTA CYNDI 2022 90 [facility] BENZONATATE 100MG CAP TAKE ONE CAPSULE BY MOUTH THREE TIMES A DAY NEEDED FOR COUGH ORAL 02/11/2024 [id number] 4 SAMPLES,R OBERTA CYNDI 2022 90 [facility] [...] ABOUT THESE INSTRUCT IONS. MAIL ORAL 02/27/2024 [id number] [facility] BISACODYL 5MG TAB,EC TAKE TWO TABLETS BY MOUTH ONE TIME TAKE BISACODY L TABLETS AT 4PM ON AFTERNOO N PRIOR TO TEST. CALL WITH ANY QUESTION S ABOUT THESE INSTRUCT IONS. MAIL TAKE BISACODY L TABLETS AT 4PM ON AFTERNOO N PRIOR TO TEST. CALL WITH ANY QUESTION S ABOUT THESE INSTRUCT IONS. MAIL ORAL 12/21/2023 [id number] 4 GUANACODevante ATTOFELIAW 2023 2 [facility] BUSPIRONE HCL 10MG TAB TAKE ONE-HALF TABLET BY MOUTH ONCE A DAY DO NOT TAKE WITH GRAPEFRU IT JUICE. ORAL ACTIVE 02/25/2025 [id number] MONICA TURNERA N 2023 45 [facility] N BUSPIRONE HCL 10MG TAB TAKE ONE-HALF TABLET BY MOUTH ONCE A DAY FOR ANXIETY DO NOT TAKE WITH GRAPEFRU IT JUICE. ORAL DISCONT INUED 11/20/2024 [id number] CLAY RODRIGUEZLACHMA N 2023 45 [facility] CARBOXYMETH YLCELLULOSE NA 0.5% SOLN,OPH INSTILL 1 DROP IN BOTH EYES FOUR TIMES A DAY NEEDED FOR DRY EYE(S) OPHTHA LMIC ACTIVE 02/24/2025 [id number] 4 MICHAEL PRINGLE 2023 30 [facility] CARBOXYMETH YLCELLULOSE NA 0.5% SOLN,OPH INSTILL 1 DROP IN BOTH EYES FOUR TIMES A DAY NEEDED FOR DRY EYE(S) OPHTHA LMIC DISCONT INUED 02/24/2025 [id number] 4 MICHAEL PRINGLERICIA 2023 45 [facility] CETIRIZINE HCL 10MG TAB TAKE ONE TABLET BY MOUTH ONCE A DAY NEEDED FOR ALLERGY SYMPTOMS ORAL ACTIVE 09/23/2025 [id number] 5 SAMPLES,R OBERTA CYNDI 2024 90 [facility] CETIRIZINE HCL 10MG TAB TAKE ONE TABLET BY MOUTH ONCE A DAY NEEDED FOR ALLERGY SYMPTOMS ORAL DISCONT INUED 09/24/2024 [id number] 5 SAMPLES,R OBERTA CYNDI 2023 90 [facility] CHOLECALCIF MIGUEL 50MCG (2,000UNIT) TAB TAKE ONE TABLET BY MOUTH ONCE A DAY FOR VITAMIN D DEFICIEN CY ORAL SUSPEND ED 09/23/2025 [id number] 5 SAMPLES,R OBERTA CYNDI 2024 100 [facility] CHOLECALCIF MIGUEL 50MCG (2,000UNIT) TAB TAKE ONE TABLET BY MOUTH ONCE A DAY FOR VITAMIN D DEFICIEN CY ORAL DISCONT INUED 09/24/2024 [id number] 4 SAMPLES,R OBERTA CYNDI 2023 100 [facility] CHOLESTYRAM INE 4GM/5GM (LIGHT) PWDR,PKT MIX AND DRINK 1 PACKET BY MOUTH TWICE DAILY NEEDED FOR CHRONIC DIARRHEA MIX WITH WATER DIRECTED . TAKE OTHER MEDICATI ONS 1 HOUR BEFORE OR 6 HOURS AFTER ADMINIST RATION. ORAL ACTIVE 01/27/2026 [id number] 5 SAMPLES,R OBERTA CYNDI 2024 120 [facility] CHOLESTYRAM INE 4GM/5GM (LIGHT) PWDR,PKT MIX AND DRINK 1 PACKET BY MOUTH TWICE DAILY NEEDED FOR CHRONIC DIARRHEA MIX WITH WATER DIRECTED . TAKE OTHER MEDICATI ONS 1 HOUR BEFORE OR 6 HOURS AFTER ADMINIST RATION. ORAL DISCONT INUED 11/12/2025 [id number] 5 SAMPLES,R OBERTA CYNDI 2024 84 [facility] CLOPIDOGREL BISULFATE 75MG TAB TAKE ONE TABLET BY MOUTH ONCE A DAY FOR ACUTE CORONARY SYNDROME ORAL ACTIVE 03/27/2025 [id number] 5 SAMPLES,R OBERTA CYNDI 2023 90 [facility] CLOPIDOGREL BISULFATE 75MG TAB TAKE ONE TABLET BY MOUTH ONCE A DAY FOR ACUTE CORONARY SYNDROME ORAL DISCONT INUED 02/11/2024 [id number] SAMPLES,R OBERTA CYNDI 2022 90 [facility] CLOPIDOGREL BISULFATE 75MG TAB TAKE ONE TABLET BY MOUTH EVERY DAY ORAL ACTIVE SANDEE REYNOLDS 2013 [facility] CYANOCOBALA MIN 1000MCG TAB TAKE ONE TABLET BY MOUTH ONCE A DAY FOR VITAMIN B12 SUPPLEME NTATION ORAL ACTIVE 09/23/2025 [id number] 5 SAMPLES,R OBERTA CYNDI 2024 100 [facility] CYANOCOBALA MIN 1000MCG TAB TAKE ONE TABLET BY MOUTH ONCE A DAY FOR VITAMIN B12 SUPPLEME NTATION ORAL DISCONT INUED 09/24/2024 [id number] 5 SAMPLES,R OBERTA CYNDI 2023 100 [facility] CYCLOBENZAP RINE HCL 10MG TAB TAKE ONE TABLET BY MOUTH AT BEDTIME NEEDED FOR MUSCLE SPASM MAY CAUSE DROWSINE SS. DO NOT DRINK ALCOHOL WHILE TAKING THIS MEDICATI ON. ORAL ACTIVE 07/03/2025 [id number] 5 SAMPLES,R OBERTA CYNDI 2024 90 [facility] CYCLOBENZAP RINE HCL 10MG TAB TAKE ONE TABLET BY MOUTH AT BEDTIME NEEDED FOR MUSCLE SPASM MAY CAUSE DROWSINE SS. DO NOT DRINK ALCOHOL WHILE TAKING THIS MEDICATI ON. ORAL DISCONT INUED 09/24/2024 [id number] SAMPLES,R OBERTA CYNDI 2023 90 [facility] [...] ATTACHED INSIDE BOX) TOPICA L ACTIVE 03/27/2025 [id number] 5 SAMPLES,R OBERTA CYNDI 2023 100 [facility] [...] INSIDE BOX) TOPICA L DISCONT INUED 02/11/2024 [id number] SAMPLES,R OBERTA CYNDI 2022 100 [facility] DONEPEZIL HCL 10MG TAB TAKE ONE TABLET BY MOUTH AT BEDTIME FOR ALZHEIME R DISEASE (JUST BEFORE BEDTIME) ORAL ACTIVE 03/27/2025 [id number] 5 SAMPLES,R OBERTA CYNDI 2023 90 [facility] DONEPEZIL HCL 10MG TAB TAKE ONE TABLET BY MOUTH AT BEDTIME FOR ALZHEIME R DISEASE (JUST BEFORE BEDTIME) ORAL DISCONT INUED 02/11/2024 [id number] SAMPLES,R OBERTA CYNDI 2022 90 [facility] DONEPEZIL HCL 10MG TAB TAKE ONE-HALF TABLET BY MOUTH AT BEDTIME ORAL ACTIVE SANDEE REYNOLDS 2020 [facility] EMPAGLIFLOZ IN 10MG TAB TAKE ONE TABLET BY MOUTH EVERY DAY ORAL ACTIVE SANDEE REYNOLDS 2018 [facility] EMPAGLIFLOZ IN 25MG TAB TAKE ONE-HALF TABLET BY MOUTH ONCE A DAY ORAL ACTIVE 03/27/2025 [id number] SAMPLES,R OBERTA CYNDI 2023 45 [facility] EMPAGLIFLOZ IN 25MG TAB TAKE ONE-HALF TABLET BY MOUTH ONCE A DAY ORAL DISCONT INUED 02/11/2024 [id number] SAMPLES,R OBERTA CYNDI 2022 45 [facility] GABAPENTIN 100MG CAP TAKE ONE CAPSULE BY MOUTH TWICE A DAY AND TAKE THREE CAPSULES AT BEDTIME FOR NERVE PAIN ORAL 02/11/2024 [id number] 4 SAMPLES,R OBERTA CYNDI 2022 450 [facility] GABAPENTIN 100MG CAP TAKE 1 CAPSULE BY MOUTH EVERY DAY ORAL ACTIVE SANDEE REYNOLDS 2020 [facility] IRBESARTAN 150MG TAB TAKE ONE TABLET BY MOUTH ONCE A DAY FOR HIGH BLOOD PRESSURE NOTE: DOSE DECREASE ORAL DISCONT INUED (EDIT) 03/17/2025 [id number] SAMPLES,R OBERTA CYNDI 2023 90 [facility] IRBESARTAN 300MG TAB TAKE ONE TABLET BY MOUTH ONCE A DAY FOR HIGH BLOOD PRESSURE ORAL 02/11/2024 [id number] SAMPLES,R OBERTA CYNDI 2022 90 [facility] IRBESARTAN 300MG TAB TAKE ONE TABLET BY MOUTH EVERY DAY ORAL ACTIVE SANDEE REYNOLDS 2013 [facility] IRBESARTAN 75MG TAB TAKE ONE TABLET BY MOUTH ONCE A DAY NOTE: DOSE DECREASE ORAL ACTIVE 03/27/2025 [id number] SAMPLES,R OBERTA CYNDI 2023 90 [facility] ISOSORBIDE MONONITRATE 30MG TAB,SA TAKE ONE TABLET BY MOUTH ONCE A DAY FOR CHEST PAIN TAKE ON EMPTY STOMACH. SWALLOW WHOLE. DO NOT CRUSH OR CHEW. ORAL ACTIVE 09/23/2025 [id number] 5 SAMPLES,R OBERTA CYNDI 2024 90 [facility] ISOSORBIDE MONONITRATE 30MG TAB,SA TAKE ONE TABLET BY MOUTH ONCE A DAY FOR CHEST PAIN TAKE ON EMPTY STOMACH. SWALLOW WHOLE. DO NOT CRUSH OR CHEW. ORAL DISCONT INUED 09/24/2024 [id number] SAMPLES,R OBERTA CYNDI 2023 90 [facility] ISOSORBIDE MONONITRATE 30MG TAB,SA TAKE ONE TABLET BY MOUTH EVERY MORNING ORAL ACTIVE SANDEE REYNOLDS 2013 [facility] KETOROLAC TROMETHAMIN E 10MG TAB TAKE ONE TABLET BY MOUTH EVERY DAY NEEDED ORAL ACTIVE SANDEE REYNOLDS 2020 [facility] MELATONIN 5MG CAP/TAB TAKE ONE CAP/TAB BY MOUTH AT BEDTIME FOR SLEEP ORAL SUSPEND ED 07/21/2025 [id number] SAMPLES,R OBERTA CYNDI 2024 90 [facility] MELOXICAM 15MG TAB TAKE ONE TABLET BY MOUTH EVERY DAY ORAL ACTIVE SANDEE REYNOLDS 2013 [facility] METFORMIN HCL 1000MG TAB TAKE ONE TABLET BY MOUTH ONCE A DAY FOR DIABETES TAKE WITH FOOD. AVOID ALCOHOL. DISCONTI NUE BEFORE GETTING XRAY DYE. ORAL ACTIVE 09/23/2025 [id number] SAMPLES,R OBERTA CYNDI 2024 90 [facility] METFORMIN HCL 1000MG TAB TAKE ONE TABLET BY MOUTH ONCE A DAY FOR DIABETES TAKE WITH FOOD. AVOID ALCOHOL. DISCONTI NUE BEFORE GETTING XRAY DYE. ORAL DISCONT INUED 09/24/2024 [id number] SAMPLES,R OBERTA CYNDI 2023 90 [facility] METFORMIN HCL 1000MG TAB TAKE ONE TABLET BY MOUTH EVERY DAY FOR DIABETES -DO NOT DRINK ALCOHOL - TAKE WITH FOOD ORAL 09/17/2024 [id number] RISERMAY 2024 30 [facility] METFORMIN HCL 500MG TAB TAKE ONE TABLET BY MOUTH EVERY MORNING ORAL ACTIVE SANDEE REYNOLDS 2014 [facility] METOPROLOL SUCCINATE 100MG TAB,SA TAKE ONE-HALF TABLET BY MOUTH ONCE A DAY FOR HIGH BLOOD PRESSURE SWALLOW WHOLE, DO NOT CRUSH OR CHEW (TABLETS MAY BE CUT IN HALF). ORAL ACTIVE 03/27/2025 [id number] 5 SAMPLES,R OBERTA CYNDI 2023 45 [facility] METOPROLOL SUCCINATE 100MG TAB,SA TAKE ONE-HALF TABLET BY MOUTH EVERY DAY ORAL ACTIVE SANDEE REYNOLDS 2013 [facility] OMEPRAZOLE 20MG CAP,EC TAKE 2 CAPSULES BY MOUTH EVERY DAY ORAL ACTIVE SANDEE REYNOLDS 2020 [facility] OMEPRAZOLE 40MG CAP,EC TAKE ONE CAPSULE BY MOUTH EVERY MORNING BEFORE A MEAL TAKE 30 MINUTES PRIOR TO FOOD. ORAL ACTIVE 09/23/2025 [id number] 5 SAMPLES,R OBERTA CYNDI 2024 90 [facility] OMEPRAZOLE 40MG CAP,EC TAKE ONE CAPSULE BY MOUTH EVERY MORNING BEFORE A MEAL TAKE 30 MINUTES PRIOR TO FOOD. ORAL DISCONT INUED 09/24/2024 [id number] 5 SAMPLES,R OBERTA CYNDI 2023 90 [facility] OXYCODONE HCL 5MG TAB TAKE ONE TABLET BY MOUTH EVERY 6 HOURS NEEDED FOR POST-OPE RATIVE PAIN MAY CAUSE CONSTIPA TION ORAL 06/10/2024 [id number] 4 CARMELA MORRISON 2023 6 [facility] PEG-3350/EL ECTROLYTES PWDR MIX [...] TEST. READ YOUR INSTRUCT IONS!) ORAL 12/21/2023 [id number] Devante BLANC ATTHEW H 2023 1 [facility] POLYETHYLEN E GLYCOL 3350 PWDR,ORAL MIX AND DRINK 2 CAPFULS BY MOUTH ONCE A DAY FOR BOWEL EMPTYING (MEASURE WITH CAP AND MIX IN 8 OZ OF WATER) ORAL 01/05/2024 [id number] 4 MACK CHAN 2023 1530 [facility] SIMETHICONE 80MG TAB,CHEW CHEW AND SWALLOW FOUR TABLETS BY MOUTH DIRECTED FOR GAS DISCOMFO RT FOR TWO DOSES BEFORE GI PROCEDUR E ORAL 02/27/2024 [id number] Devante BLANC ATTHEW H 2023 8 [facility] SIMETHICONE 80MG TAB,CHEW CHEW AND SWALLOW FOUR TABLETS BY MOUTH DIRECTED FOR GAS DISCOMFO RT FOR TWO DOSES BEFORE GI PROCEDUR E ORAL 12/21/2023 [id number] Devante BLANC ATTHEW H 2023 8 [facility] TAMSULOSIN HCL 0.4MG CAP TAKE TWO CAPSULES BY MOUTH EVERY EVENING FOR BENIGN PROSTATI C HYPERPLA JOSE D APPROXIM ATELY 30 MINUTES AFTER THE SAME MEAL EACH DAY ORAL ACTIVE 09/23/2025 [id number] 5 SAMPLES,R OBERTA CYNDI 2024 180 [facility] TAMSULOSIN HCL 0.4MG CAP TAKE TWO CAPSULES BY MOUTH EVERY EVENING FOR BENIGN PROSTATI C HYPERPLA JOSE D APPROXIM ATELY 30 MINUTES AFTER THE SAME MEAL EACH DAY ORAL DISCONT INUED 07/22/2024 [id number] 4 SAMPLES,R OBERTA CYNDI 2023 180 [facility] TAMSULOSIN HCL 0.4MG CAP TAKE TWO CAPSULES BY MOUTH EVERY EVENING FOR BENIGN PROSTATI C HYPERPLA JOSE D APPROXIM ATELY 30 MINUTES AFTER THE SAME MEAL EACH DAY ORAL DISCONT INUED 07/22/2024 [id number] 4 SAMPLES,R OBERTA CYNDI 2023 180 [facility] TRAMADOL HCL 50MG TAB TAKE ONE TABLET BY MOUTH EVERY DAY NEEDED ORAL ACTIVE SANDEE REYNOLDS 2020 [facility] Allergies, Adverse Reactions, Alerts Combined list of allergies from Department of Defense and Veterans Affairs facilities. It does not include entries that were removed or entered in error. Substance Category Reaction Severity Reaction type Status Date Reported Comments Source [facility] INHIBITORS Propensity to adverse reactions to drug (finding) Cough active 2 [facility] SIMVASTATIN Propensity to adverse reactions to drug (finding) active 9 [facility] SIMVASTATIN Propensity to adverse reactions to drug (finding) Muscle pain active 2 [facility] Immunizations Combined list of available immunizations from the Department of Defense and Veterans Affairs facilities. Immunization Series Date Given Administered By Site Reaction Lot Number CVX Code Drug Electrician Shop Status Comments Source INFLUENZA, UNSPECIFIED FORMULATION 2022 88 complet ed HISTORICA L INFORMATI ON - FROM OTHER PROVIDER, [facility] ZOSTER RECOMBINANT 2 2021 187 complet ed HISTORICA L INFORMATI ON - FROM OTHER REGISTRY, per JLV given at [facility] ZOSTER RECOMBINANT 1 2021 187 complet ed HISTORICA L INFORMATI ON - FROM OTHER REGISTRY, [facility] INFLUENZA, UNSPECIFIED FORMULATION 2020 88 complet ed [facility] PNEUMOCOCCAL POLYSACCHARID E PPV23 2 2020 33 complet ed HISTORICA L INFORMATI ON - FROM OTHER REGISTRY, [facility] COVID-19 (MODERNA), MRNA, LNP-S, PF, 100 MCG/0.5ML DOSE OR 50 MCG/0.25ML DOSE 2 2020 207 complet ed HISTORICA L INFORMATI ON - FROM OTHER REGISTRY, [facility] COVID-19 (MODERNA), MRNA, LNP-S, PF, 100 MCG/0.5ML DOSE OR 50 MCG/0.25ML DOSE 1 2020 207 complet ed HISTORICA L INFORMATI ON - FROM OTHER REGISTRY, [facility] INFLUENZA, HIGH-DOSE, QUADRIVALENT, PF 1 2019 197 complet ed HISTORICA L INFORMATI ON - FROM OTHER REGISTRY, [facility] INFLUENZA, UNSPECIFIED FORMULATION 2019 88 complet ed [facility] [place] [facility] INFLUENZA, SPLIT VIRUS, QUADRIVALENT, PF 1 2018 150 complet ed HISTORICA L INFORMATI ON - FROM OTHER REGISTRY, [facility] PNEUMOCOCCAL CONJUGATE PCV 13 1 2018 133 complet ed HISTORICA L INFORMATI ON - FROM OTHER REGISTRY, [facility] INFLUENZA, SEASONAL, INJECTABLE 2018 141 complet ed [facility] [place] [facility] PNEUMOCOCCAL CONJUGATE PCV 13 2018 133 complet ed date unknown [facility] [place] [facility] INFLUENZA, SPLIT VIRUS, TRIVALENT, PRESERVATIVE 2 2017 141 complet ed HISTORICA L INFORMATI ON - FROM OTHER REGISTRY, [facility] INFLUENZA, HIGH-DOSE, TRIVALENT, PF 1 2017 135 complet ed HISTORICA L INFORMATI ON - FROM OTHER REGISTRY, [facility] INFLUENZA, HIGH DOSE SEASONAL 2017 135 complet ed [facility] [place] [facility] PNEUMOCOCCAL CONJUGATE PCV 13 2012 133 complet ed [facility] TDAP 2011 115 complet ed [facility] TD (ADULT), 2 LF TETANUS TOXOID, PRESERVATIVE FREE, ADSORBED 1 2007 09 complet ed HISTORICA L INFORMATI ON - FROM OTHER REGISTRY, [facility] Results Combined list of recent chemistry, hematology [...] Sep 20, 2024 04:29 PM Reporting Lab: [facility] [address] [place] [phone] Performing Lab: [facility] [address] [place] [phone] [facility] LIPID PANEL (STL) CHOLESTEROL [MASS/VOLUM E] IN SERUM OR PLASMA 185 mg/dL 0 - 200 09/22 Specimen Type: PLASMA Comment: No hemolysis noted. Ordering Provider: SONNY SCHMIDT Report Released Date/Time: Sep 20, 2024 04:29 PM Reporting Lab: [facility] [address] [place], [place] [phone] Performing Lab: [address] [phone] [place] [address] [facility] LIPID PANEL (STL) TRIGLYCERID E [MASS/VOLUM E] IN SERUM OR PLASMA 171 mg/dL 0 - 150 09/22 H Specimen Type: PLASMA Comment: No hemolysis noted. Ordering Provider: SONNY SCHMIDT Report Released Date/Time: Sep 20, 2024 04:29 PM Reporting Lab: [facility] [address] [place], [place] [phone] Performing Lab: [phone] [place] [address] [facility] LIPID PANEL (STL) CHOLESTEROL IN LDL [MASS/VOLUM E] IN SERUM OR PLASMA BY CALCULATION 115 mg/dL 09/22 Specimen Type: PLASMA Comment: No hemolysis noted. Ordering Provider: SONNY SCHMIDT Report Released Date/Time: Sep 20, 2024 04:29 PM Reporting Lab: [facility] [address] [place] [phone] Performing Lab: [address] [phone] [facility] LIPID PANEL (STL) CHOLESTEROL IN HDL [MASS/VOLUM E] IN SERUM OR PLASMA 36 mg/dL 40 09/22 L Specimen Type: PLASMA Comment: No hemolysis noted. Ordering Provider: SONNY SCHMIDT Report Released Date/Time: Sep 20, 2024 04:29 PM Reporting Lab: [facility] [address] [place] [phone] Performing Lab: [facility] [address] [place] [phone] [place] [address] [facility] HGA1C HEMOGLOBIN A1C/HEMOGLO BIN.TOTAL IN BLOOD 7.4 4.0 - 6.0 09/22 H Specimen Type: BLOOD No comment entered. Ordering Provider: SONNY SCHMIDT Report Released Date/Time: Sep 20, 2024 04:29 PM Reporting Lab: [place] [phone] Performing Lab: [place] [phone] [place] [address] [facility] COMPREHEN SIVE METABOLIC PANEL CREATININE [MASS/VOLUM E] IN SERUM OR PLASMA 1.01 mg/dL 0.7 - 1.3 09/22 Specimen Type: PLASMA Comment: No hemolysis noted. Ordering Provider: SONNY SCHMIDT Report Released Date/Time: Sep 20, 2024 04:29 PM Reporting Lab: [address] [phone] Performing Lab: [facility] [address] [place] [phone] [place] [address] CB COMPREHEN SIVE METABOLIC PANEL UREA NITROGEN [MASS/VOLUM E] IN SERUM OR PLASMA 15.7 mg/dL 9.0 - 25.0 09/22 Specimen Type: PLASMA Comment: No hemolysis noted. Ordering Provider: SONNY SCHMIDT Report Released Date/Time: Sep 20, 2024 04:29 PM Reporting Lab: [facility] [address] [place] [phone] Performing Lab: [facility] [address] [place] [phone] [place] [address] CB COMPREHEN SIVE METABOLIC PANEL GLUCOSE [MASS/VOLUM E] IN SERUM OR PLASMA 217 mg/dL 72 - 99 09/22 H Specimen Type: PLASMA Comment: No hemolysis noted. Ordering Provider: SONNY SCHMIDT Report Released Date/Time: Sep 20, 2024 04:29 PM Reporting Lab: [facility] [id number] [facility] [phone] Performing Lab: [facility] [address] [place] [address] [phone] [place] [address] [facility] COMPREHEN SIVE METABOLIC PANEL SODIUM [MOLES/VOLU ME] IN SERUM OR PLASMA 136 meq/L 136 - 145 09/22 Specimen Type: PLASMA Comment: No hemolysis noted. Ordering Provider: SONNY SCHMIDT Report Released Date/Time: Sep 20, 2024 04:29 PM Reporting Lab: [facility] [address] [place] [phone] Performing Lab: [facility] [address] [place] [address] [phone] [place] [address] [facility] COMPREHEN SIVE METABOLIC PANEL POTASSIUM [MOLES/VOLU ME] IN SERUM OR PLASMA 4.2 meq/L 3.5 - 5 09/22 Specimen Type: PLASMA Comment: No hemolysis noted. Ordering Provider: SONNY SCHMIDT Report Released Date/Time: Sep 20, 2024 04:29 PM Reporting Lab: [facility] [address] [place] [phone] Performing Lab: [facility] [address] [place] [address] [phone] [place] [address] [facility] COMPREHEN SIVE METABOLIC PANEL CHLORIDE [MOLES/VOLU ME] IN SERUM OR PLASMA 107 meq/L 98 - 107 09/22 Specimen Type: PLASMA Comment: No hemolysis noted. Ordering Provider: SNONY SCHMIDT Report Released Date/Time: Sep 20, 2024 04:29 PM Reporting Lab: [facility] [address] [place] [phone] Performing Lab: [address] [address] [place] [facility] COMPREHEN SIVE METABOLIC PANEL CARBON DIOXIDE, TOTAL [MOLES/VOLU ME] IN SERUM OR PLASMA 23 meq/L 22 - 31 09/22 Specimen Type: PLASMA Comment: No hemolysis noted. Ordering Provider: SONNY SCHMIDT Report Released Date/Time: Sep 20, 2024 04:29 PM Reporting Lab: [facility] [address] [place] [phone] Performing Lab: [address] [phone] [place] [address] [facility] COMPREHEN SIVE METABOLIC PANEL CALCIUM [MASS/VOLUM E] IN SERUM OR PLASMA 9.1 mg/dL 8.4 - 10.4 09/22 Specimen Type: PLASMA Comment: No hemolysis noted. Ordering Provider: SONNY SCHMIDT Report Released Date/Time: Sep 20, 2024 04:29 PM Reporting Lab: [place] [phone] Performing Lab: [address] [phone] [place] [address] [facility] COMPREHEN SIVE METABOLIC PANEL PROTEIN [MASS/VOLUM E] IN SERUM OR PLASMA 6.5 g/dL 6 - 8.6 09/22 Specimen Type: PLASMA Comment: No hemolysis noted. Ordering Provider: SONNY SCHMIDT Report Released Date/Time: Sep 20, 2024 04:29 PM Reporting Lab: [address] [phone] Performing Lab: [address] [phone] [place] [address] CB COMPREHEN SIVE METABOLIC PANEL ALBUMIN [MASS/VOLUM E] IN SERUM OR PLASMA 3.5 g/dL 3.4 - 5 09/22 Specimen Type: PLASMA Comment: No hemolysis noted. Ordering Provider: SONNY SCHMIDT Report Released Date/Time: Sep 20, 2024 04:29 PM Reporting Lab: [facility] [address] [place] [phone] Performing Lab: [phone] [place] [address] CB COMPREHEN SIVE METABOLIC PANEL BILIRUBIN.T OTAL [MASS/VOLUM E] IN SERUM OR PLASMA 0.6 mg/dL 0.2 - 1.2 09/22 Specimen Type: PLASMA Comment: No hemolysis noted. Ordering Provider: SONNY SCHMIDT Report Released Date/Time: Sep 20, 2024 04:29 PM Reporting Lab: [facility] [address] [place] [phone] Performing Lab: [address] [phone] [place] [address] [facility] COMPREHEN SIVE METABOLIC PANEL ALKALINE PHOSPHATASE [ENZYMATIC ACTIVITY/VO LUME] IN SERUM OR PLASMA 146 U/L 40 - 150 09/22 Specimen Type: PLASMA Comment: No hemolysis noted. Ordering Provider: SONNY SCHMIDT Report Released Date/Time: Sep 20, 2024 04:29 PM Reporting Lab: [address] [phone] Performing Lab: [address] [phone] [place] [address] [facility] COMPREHEN SIVE METABOLIC PANEL ASPARTATE AMINOTRANSF ERASE [ENZYMATIC ACTIVITY/VO LUME] IN SERUM OR PLASMA 16 U/L 5 - 34 09/22 Specimen Type: PLASMA Comment: No hemolysis noted. Ordering Provider: SONNY SCHMIDT Report Released Date/Time: Sep 20, 2024 04:29 PM Reporting Lab: [facility] [address] [place] [phone] Performing Lab: [phone] [place] [address] [facility] COMPREHEN SIVE METABOLIC PANEL ALANINE AMINOTRANSF ERASE [ENZYMATIC ACTIVITY/VO LUME] IN SERUM OR PLASMA 16 U/L 8 - 40 09/22 Specimen Type: PLASMA Comment: No hemolysis noted. Ordering Provider: SONNY SCHMIDT Report Released Date/Time: Sep 20, 2024 04:29 PM Reporting Lab: [facility] [address] [place] [phone] Performing Lab: [address] [phone] [place] [facility] COMPREHEN SIVE METABOLIC PANEL GLOMERULAR FILTRATION RATE/1.73 SQ M.PREDICTED [VOLUME RATE/AREA] IN SERUM, PLASMA OR BLOOD BY CREATININE- BASED FORMULA (CKD-EPI 2020) 74.7 60 09/22 Specimen Type: PLASMA Comment: No hemolysis noted. Ordering Provider: SONNY SCHMIDT Report Released Date/Time: Sep 20, 2024 04:29 PM Reporting Lab: [place] [address] Performing Lab: [address] [facility] TSH W/ REFLEX FT4 (STL) THYROTROPIN [UNITS/VOLU ME] IN SERUM OR PLASMA 2.029 u[IU]/ mL 0.47 - 5 09/22 Specimen Type: PLASMA No comment entered. Ordering Provider: SONNY SCHMIDT Report Released Date/Time: Sep 20, 2024 04:29 PM Reporting Lab: [place] [address] Performing Lab: [address] [facility] B12 COBALAMIN (VITAMIN B12) [MASS/VOLUM E] IN SERUM OR PLASMA 548 pg/mL 213 - 816 09/22 Specimen Type: SERUM No comment entered. Ordering Provider: SONNY SCHMIDT Report Released Date/Time: Sep 20, 2024 04:29 PM Reporting Lab: [place] [address] Performing Lab: [address] [facility] VITAMIN D, 25-HYDROX Y 25-HYDROXYV ITAMIN D3 [MASS/VOLUM E] IN SERUM OR PLASMA 23.7 ng/mL 30 - 96 09/22 L Specimen Type: SERUM No comment entered. Ordering Provider: SONNY SCHMIDT Report Released Date/Time: Sep 20, 2024 04:29 PM Reporting Lab: [place] [address] Performing Lab: [address] [facility] CBC LEUKOCYTES [#/VOLUME] IN BLOOD BY AUTOMATED COUNT 5.0 10*3/u L 3.6 - 11.2 09/22 Specimen Type: BLOOD No comment entered. Ordering Provider: SONNY SCHMIDT Report Released Date/Time: Sep 20, 2024 04:29 PM Reporting Lab: [facility] [address] [place] [address] Performing Lab: [phone] [facility] CBC ERYTHROCYTE S [#/VOLUME] IN BLOOD BY AUTOMATED COUNT 4.54 10*6/u L 4.10 - 5.70 09/22 Specimen Type: BLOOD No comment entered. Ordering Provider: SONNY SCHMIDT Report Released Date/Time: Sep 20, 2024 04:29 PM Reporting Lab: [place] [address] Performing Lab: [address] [facility] CBC HEMOGLOBIN [MASS/VOLUM E] IN BLOOD 14.7 g/dL 13.1 - 16.8 09/22 Specimen Type: BLOOD No comment entered. Ordering Provider: SONNY SCHMIDT Report Released Date/Time: Sep 20, 2024 04:29 PM Reporting Lab: [facility] [address] [place] [address] Performing Lab: [phone] [facility] CBC HEMATOCRIT [VOLUME FRACTION] OF BLOOD 43.5 38.2 - 48.4 09/22 Specimen Type: BLOOD No comment entered. Ordering Provider: SONNY SCHMIDT Report Released Date/Time: Sep 20, 2024 04:29 PM Reporting Lab: [place] [address] Performing Lab: [address] [facility] CBC MCV [ENTITIC VOLUME] BY AUTOMATED COUNT 95.8 fL 80.0 - 100.0 09/22 Specimen Type: BLOOD No comment entered. Ordering Provider: SONNY SCHMIDT Report Released Date/Time: Sep 20, 2024 04:29 PM Reporting Lab: [place] [address] Performing Lab: [address] [facility] CBC MCH [ENTITIC MASS] BY AUTOMATED COUNT 32.4 pg 27.0 - 34.0 09/22 Specimen Type: BLOOD No comment entered. Ordering Provider: SONNY SCHMIDT Report Released Date/Time: Sep 20, 2024 04:29 PM Reporting Lab: [place] [address] Performing Lab: [address] [facility] CBC MCHC [MASS/VOLUM E] BY AUTOMATED COUNT 33.8 g/dL 33.0 - 36.0 09/22 Specimen Type: BLOOD No comment entered. Ordering Provider: SONNY SCHMIDT Report Released Date/Time: Sep 20, 2024 04:29 PM Reporting Lab: [place] [address] Performing Lab: [address] [facility] CBC PLATELETS [#/VOLUME] IN BLOOD BY AUTOMATED COUNT 242 10*3/u L 150 - 400 09/22 Specimen Type: BLOOD No comment entered. Ordering Provider: SONNY SCHMIDT Report Released Date/Time: Sep 20, 2024 04:29 PM Reporting Lab: [place] [address] Performing Lab: [address] [facility] CBC PLATELET MEAN VOLUME [ENTITIC VOLUME] IN BLOOD BY AUTOMATED COUNT 10.5 fL 7.5 - 11.2 09/22 Specimen Type: BLOOD No comment entered. Ordering Provider: SONNY SCHMIDT Report Released Date/Time: Sep 20, 2024 04:29 PM Reporting Lab: [address] [place] [address] Performing Lab: [facility] [address] [place] [phone] [place] [facility] CBC ERYTHROCYTE DISTRIBUTIO N WIDTH [RATIO] BY AUTOMATED COUNT 12.1 11.8 - 15.1 09/22 Specimen Type: BLOOD No comment entered. Ordering Provider: SONNY SCHMIDT Report Released Date/Time: Sep 20, 2024 04:29 PM Reporting Lab: [facility] [address] [place] [phone] Performing Lab: [address] [phone] [place] [facility] CBC LYMPHOCYTES /100 LEUKOCYTES IN BLOOD BY AUTOMATED COUNT 32 09/22 Specimen Type: BLOOD No comment entered. Ordering Provider: SONNY SCHMIDT Report Released Date/Time: Sep 20, 2024 04:29 PM Reporting Lab: [address] [phone] Performing Lab: [address] [address] [place] [facility] CBC MONOCYTES/1 00 LEUKOCYTES IN BLOOD BY AUTOMATED COUNT 7 09/22 Specimen Type: BLOOD No comment entered. Ordering Provider: SONNY SCHMIDT Report Released Date/Time: Sep 20, 2024 04:29 PM Reporting Lab: [facility] [address] [place] [phone] Performing Lab: [address] [phone] [place] [facility] CBC NEUTROPHILS /100 LEUKOCYTES IN BLOOD BY AUTOMATED COUNT 58 09/22 Specimen Type: BLOOD No comment entered. Ordering Provider: SONNY SCHMIDT Report Released Date/Time: Sep 20, 2024 04:29 PM Reporting Lab: [facility] [address] [place] [phone] Performing Lab: [address] [address] [place] [facility] CBC EOSINOPHILS /100 LEUKOCYTES IN BLOOD BY AUTOMATED COUNT 3 09/22 Specimen Type: BLOOD No comment entered. Ordering Provider: SONNY SCHMIDT Report Released Date/Time: Sep 20, 2024 04:29 PM Reporting Lab: [facility] [address] [place] [address] Performing Lab: [place] [phone] [facility] CBC BASOPHILS/1 00 LEUKOCYTES IN BLOOD BY AUTOMATED COUNT 1 09/22 Specimen Type: BLOOD No comment entered. Ordering Provider: SONNY SCHMIDT Report Released Date/Time: Sep 20, 2024 04:29 PM Reporting Lab: [place] [address] Performing Lab: [address] [facility] CBC LYMPHOCYTES [#/VOLUME] IN BLOOD BY AUTOMATED COUNT 1.60 10*3/u L 0.77 - 4.50 09/22 Specimen Type: BLOOD No comment entered. Ordering Provider: SONNY SCHMIDT Report Released Date/Time: Sep 20, 2024 04:29 PM Reporting Lab: [place] [address] Performing Lab: [address] [facility] CBC MONOCYTES [#/VOLUME] IN BLOOD BY AUTOMATED COUNT 0.35 10*3/u L 0.19 - 0.80 09/22 Specimen Type: BLOOD No comment entered. Ordering Provider: SONNY SCHMIDT Report Released Date/Time: Sep 20, 2024 04:29 PM Reporting Lab: [place] [address] Performing Lab: [address] [facility] CBC NEUTROPHILS [#/VOLUME] IN BLOOD BY AUTOMATED COUNT 2.87 10*3/u L 2.10 - 8.00 09/22 Specimen Type: BLOOD No comment entered. Ordering Provider: SONNY SCHMIDT Report Released Date/Time: Sep 20, 2024 04:29 PM Reporting Lab: [facility] [address] [place], [place] [phone] Performing Lab: [address] CB CBC EOSINOPHILS [#/VOLUME] IN BLOOD BY AUTOMATED COUNT 0.13 10*3/u L 0.00 - 0.60 09/22 Specimen Type: BLOOD No comment entered. Ordering Provider: SONNY SCHMIDT Report Released Date/Time: Sep 20, 2024 04:29 PM Reporting Lab: [place] [address] Performing Lab: [address] CB CBC BASOPHILS [#/VOLUME] IN BLOOD BY AUTOMATED COUNT 0.03 10*3/u L 0.00 - 0.20 09/22 Specimen Type: BLOOD No comment entered. Ordering Provider: SONNY SCHMIDT Report Released Date/Time: Sep 20, 2024 04:29 PM Reporting Lab: [place] [address] Performing Lab: [address] [facility] MICRAL/CR EAT PROFILE (STL) ALBUMIN [MASS/VOLUM E] IN URINE 7.6 mg/L 09/22 Specimen Type: URINE No comment entered. Ordering Provider: SONNY SCHMIDT Report Released Date/Time: Sep 20, 2024 04:29 PM Reporting Lab: [place] [address] Performing Lab: [address] [facility] MICRAL/CR EAT PROFILE (STL) ALBUMIN/CRE ATININE [MASS RATIO] IN URINE 5 mg/g 0 - 29 09/22 Specimen Type: URINE No comment entered. Ordering Provider: SONNY SCHMIDT Report Released Date/Time: Sep 20, 2024 04:29 PM Reporting Lab: [place] [id number] [facility] [address] Performing Lab: [phone] [place] [address] [facility] MICRAL/CR EAT PROFILE ([facility]) CREATININE [MASS/VOLUM E] IN URINE 158.4 mg/dL 63 - 166 09/22 Specimen Type: URINE No comment entered. Ordering Provider: SONNY SCHMIDT Report Released Date/Time: Sep 20, 2024 04:29 PM Reporting Lab: [place] [address] [facility] [phone] Performing Lab: [address] [phone] [place] [address] [facility] GLUCOSE,B LOOD-poct ([facility]) GLUCOSE [MASS/VOLUM E] IN BLOOD BY AUTOMATED TEST STRIP 154 mg/dL 72 - 99 05/11 H Specimen Type: BLOOD Comment: Test Performed by: [id number] Meter #: [id number] Ordering Provider: CARMELA MORRISON Report Released Date/Time: May 11, 2024 06:36 AM Reporting Lab: [address] [phone] Performing Lab: [address] [phone] [place] [address] Vital Signs Combined list of inpatient and outpatient Vital Signs from Department of Defense and Veterans Affairs, ranging from 12 months to all on record, depending upon the facility. Vital Sign Value Date Comments Source SYSTOLIC BLOOD PRESSURE 103 12/28/19 25 10:01:44 [facility] DIASTOLIC BLOOD PRESSURE 60 025 10:01:44 [facility] PULSE OXIMETRY 96 % 12/27/2024 10:01:44 [facility] WEIGHT 230 12/27/2024 10:01:44 [facility] BMI 31 kg/m2 12/27/2024 10:01:44 [facility] PAIN 0 12/27/2024 10:01:44 [facility] TEMPERATURE 97.2 12/27/2024 10:01:44 [facility] PULSE 70 12/27/2024 10:01:44 [facility] RESPIRATION 16 12/27/2024 10:01:44 [facility] SYSTOLIC BLOOD PRESSURE 154 12/08/19 11:01:58 [facility] DIASTOLIC BLOOD PRESSURE 71 025 11:01:58 [facility] PULSE OXIMETRY 97 % 12/07/2024 11:01:58 [facility] WEIGHT 229.6 12/07/2024 11:01:58 [facility] BMI 31 kg/m2 12/07/2024 11:01:58 [facility] PAIN 3 12/07/2024 11:01:58 [facility] HEIGHT 72 12/07/2024 11:01:58 [facility] TEMPERATURE 97.3 12/07/2024 11:01:58 [facility] PULSE 66 12/07/2024 11:01:58 [facility] RESPIRATION 18 12/07/2024 11:01:58 [facility] SYSTOLIC BLOOD PRESSURE 139 09/23/19 11:38:53 [facility] DIASTOLIC BLOOD PRESSURE 74 025 11:38:53 [facility] PULSE OXIMETRY 98 09/22/2024 11:38:53 [facility] WEIGHT 231.8 09/22/2024 [facility]38:[facility] 32 kg/m2 09/22/2024 11:38:53 [facility] PAIN 4 09/22/2024 11:38:53 [facility] HEIGHT 72 09/22/2024 11:38:53 [facility] TEMPERATURE 97.5 09/22/2024 11:38:53 [facility] PULSE 58 09/22/2024 11:38:53 [facility] RESPIRATION 18 09/22/2024 11:38:53 [facility] SYSTOLIC BLOOD PRESSURE 144 08/18/19 25 11:47:00 [facility] Samuels [facility] DIASTOLIC BLOOD PRESSURE 71 025 11:47:00 [facility] PAIN 0 08/18/2024 11:47:00 [facility] TEMPERATURE 97.8 08/18/2024 11:47:00 ROMERO Samuels [facility] PULSE 66 08/18/2024 11:47:00 [facility] RESPIRATION 18 08/18/2024 11:47:00 [facility] SYSTOLIC BLOOD PRESSURE 144 05/19/20 13:34:48 [facility] DIASTOLIC BLOOD PRESSURE 80 024 13:34:48 [facility] PULSE OXIMETRY 98 05/19/2024 13:34:48 [facility] WEIGHT 217.9 05/19/2024 13:34:48 [facility] BMI 30 kg/m2 05/19/2024 13:34:48 [facility] PAIN 0 05/19/2024 13:34:48 [facility] HEIGHT 72 05/19/2024 13:34:48 [facility] TEMPERATURE 97.5 05/19/2024 13:34:48 [facility] PULSE 70 05/19/2024 13:34:48 [facility] RESPIRATION 18 05/19/2024 13:34:48 [facility] Encounters Combined list of: 1) Encounters from Department of Veterans Affairs facilities going backup to the last 18 months, not all [place] inpatient encounters are included; 2) Encounters from the Department of Defense facilities going backup to 280 months. Location Location Details Encounter Type Encounter Number Reason For Visit Attending Provider ADM Date DC Date Status Disposition Source [place] [facility] SELF-MGMT EDUC & [place] 1 [place] [id number] Diagnos is: ICD-10- CM R26.81 Unstead iness on feet RUSSELL,DEVI BRONWING P 08/06 [facility] HC PRO PHONE CALL 21-30 MIN [id number] Diagnos is: ICD-10- CM Z72.3 Lack of physica l AR Armstrong 08/15 [facility] SELF-MGMT EDUC & TRA[place] 1 [place] [id number] Diagnos is: ICD-10- CM Z72.3 Lack of physica l exercis e AR WINTER S 08/20 [facility] EXERCISE CLASS [id number] Diagnos is: ICD-10- CM Z72.3 Lack of physica l exercis e LALIT,ANG SEEMA 08/24 [facility] EXERCISE CLASS [id number] Diagnos is: ICD-10- CM Z72.3 Lack of physica l exercis e LALIT,ANG SEEMA 08/25 [facility] HC PRO PHONE CALL 5-10 MIN [id number] YI MARISCAL 08/25 [facility] [place] [facility] Outpatient Encounter [id number] BRAYAN,SONNY HANNA 08/[address] [facility] Outpatient Encounter [id number] Devante GRAFF 08/31 [facility] ED[facility] & TRA[place] 1 [place] [id number] Diagnos is: ICD-10- CM Z72.3 Lack of physica l exercis e AR WINTER S 09/02 [facility] EXERCISE CLASS [id number] Diagnos is: ICD-10- CM Z72.3 Lack of physica l exercis e GREG ANDREA 09/03 [facility] Outpatient Encounter [id number] 09/03 [facility] Outpatient Encounter [id number] SAMPLES,SONNY LOO CYNDI 09/04 [facility] OFFICE O/P EST MOD 30 MIN [id number] Diagnos is: ICD-10- CM 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 RAMYA LONGORIA 09/08 [facility] EX[facility] CLASS [id number] Diagnos is: ICD-10- CM Z72.3 Lack of physica l exercis e AR WINTER 09/14 [facility] EXERCISE CLASS [id number] Diagnos is: ICD-10- CM Z72.3 Lack of physica l exercis e GREG ANDREA 09/17 [facility] EXERCISE CLASS [id number] Diagnos is: ICD-10- CM Z72.3 Lack of physica l exercis e DEVI WELLS P 09/21 [facility] N [place] [facility] OFFICE O/P EST MOD 30 MIN [id number] Diagnos is: ICD-10- CM M25.569 Pain in 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 knee SAMPLES,SONNY LOO CYNDI 09/23 [facility] [facility] EXERCISE CLASS [id number] Diagnos is: ICD-10- CM Z72.3 Lack of physica l exercis e GREG ANDREA 09/24 [facility] CLASS [id number] Diagnos is: ICD-10- CM Z72.3 Lack of physica l exercis e MELISSA NULL 09/29 [facility] Outpatient Encounter [id number] 09/30 [facility] CLASS [id number] Diagnos is: ICD-10- CM Z72.3 Lack of physica l exercis e GREG ANDREA 10/01 [facility] OFF/OP EST MAY X REQ PHY/QHP [id number] Soni NAILS 10/02 [facility] EX[facility] CLASS [id number] Diagnos is: ICD-10- CM Z72.3 Lack of physica l exercis e WILFRID ABREU 10/06 [facility] HC PRO PHONE CALL 5-10 MIN [id number] Diagnos is: ICD-10- CM Z72.3 Lack of physica l exercis e AR WINTER 10/12 [facility] Outpatient Encounter [id number] 10/13 [facility] Outpatient Encounter [id number] 10/14 [facility] OFF/OP EST MAY X REQ PHY/QHP [id number] Diagnos is: ICD-10- CM Z71.9 Blow Pit Helper ing, 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 NEGRITA WARREN 10/16 [facility] [facility] EXERCISE CLASS [id number] Diagnos is: ICD-10- CM Z72.3 Lack of physica l exercis e RUSSELL,BENJ BROWNING P 10/19 [facility] N [place] [facility] OFFICE O/P EST LOW 20 MIN [id number] Diagnos is: ICD-10- CM 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 Outpatient Encounter [id number] 10/20 [facility] EX[facility] CLASS 78302-1.65 [id number] Diagnos is: ICD-10- CM Z72.3 Lack of physica l exercis e Michael WARNER 10/22 [facility] EXERCISE CLASS 98330-9.65 [id number] 522 Diagnos is: ICD-10- CM Z72.3 Lack of physica l exercis e RUSSELL,BENJ BROWNING P 10/26 [facility] EXERCISE CLASS 02849-6.65 [id number] 217 Diagnos is: ICD-10- CM Z72.3 Lack of physica l exercis e GREG ANDREA E 10/29 [facility] EXERCISE CLASS 18432-5.65 [id number] 922 Diagnos is: ICD-10- CM Z72.3 Lack of physica l exercis e RUSSELL,BENJ BROWNING P 11/02 [facility] EXERCISE CLASS 92770-4.65 [id number] Diagnos is: ICD-10- CM Z72.3 Lack of physica l exercis e LUIS CARLOS COHN SEEMA 11/03 [facility] EXERCISE CLASS 60883-5.65 [id number] 543 Diagnos is: ICD-10- CM Z72.3 Lack of physica l exercis e TIMMY,Michael MY L 11/05 [facility] EXERCISE CLASS 01743-1.65 [id number] Diagnos is: ICD-10- CM Z72.3 Lack of physica l exercis e DEVI WELLS BROWNING P 11/09 [facility] OFFICE O/P EST MOD 30 MIN 48039-8.65 [id number] Diagnos is: ICD-10- CM F41.1 General ized anxiety disorde r TATE THOMPSON 11/19 [facility] Outpatient Encounter [id number] [id number] 11/19 [facility] OFF/OP CNSLTJ NEW/EST MOD 40 61654-9.65 [id number] Diagnos is: ICD-10- CM R10.10 Upper abdomin al pain, 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 PEDRITO BLANC TTHEW H 11/20 [facility] OFFICE O/P EST MOD 30 MIN 58458-0.65 [id number] Diagnos is: ICD-10- CM 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, 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 ALEXX ARANDA LLIADevante E III 11/30 [facility] EX[facility] CLASS 66642-8.65 [id number] 561 Diagnos is: ICD-10- CM Z72.3 Lack of physica l exercis e RUSSELL,BENJ BROWNING P 01/11 [facility] EXERCISE CLASS 19521-9.65 [id number] 557 Diagnos is: ICD-10- CM Z72.3 Lack of physica l exercis e Michael WARNER MY L 01/14 [facility] EXERCISE CLASS 46519-5.65 [id number] Diagnos is: ICD-10- CM Z72.3 Lack of physica l exercis e RUSSELL,BENJ BROWNING P 01/18 [facility] EXERCISE CLASS 48161-1.65 [id number] 421 Diagnos is: ICD-10- CM Z72.3 Lack of physica l exercis e RUSSELL,BENJ BROWNING P 01/25 [facility] EXERCISE CLASS 56991-6.65 [id number] 227 Diagnos is: ICD-10- CM Z72.3 Lack of physica l exercis e RAMÓN ARCHER NNAH J 01/26 [facility] Outpatient Encounter [id number] [id number] 01/27 [facility] Outpatient Encounter 01730-0.65 [id number] Romeo BLANCO 01/27 [facility] 52116-6.65 [id number] 434 Diagnos is: ICD-10- CM Z72.3 Lack of physica l exercis e AR WINTER 02/02 [facility] Outpatient Encounter 77432-4.65 [id number] 4 02/04 [facility] OFFICE O/P EST MOD 30 MIN 15015-7.65 [id number] 9 Diagnos is: ICD-10- CM Z01.818 Encount er for other preproc edural examina LUCIEN Cabezas 02/04 [facility] OFFICE O/P EST SF 10 MIN 82700-1.65 [id number] 1 Diagnos is: ICD-10- CM R93.2 Abnorma l finding s on dx imaging of liver and biliary tract BRENDAN IRELAND S 02/04 [facility] Outpatient Encounter 27086-0.65 [id number] 0 02/04 [facility] Outpatient Encounter 69458-1.65 [id number] JEF FARNSWORTH E 02/04 [facility] EXERC[facility] CLASS 71509-3.65 [id number] 007 Diagnos is: ICD-10- CM Z72.3 Lack of physica l exercis e DEVI WELLS P 02/08 [facility] PT EDUCATION NOC GROUP 79847-2.65 [id number] 288 Diagnos is: ICD-10- CM Z72.3 Lack of physica l exercis e RAMÓN ARCHER J 02/09 [facility] PT EDUCATION NOC GROUP 11804-1.65 [id number] 706 Diagnos is: ICD-10- CM Z72.3 Lack of physica l exercis e GREG ANDREA E 02/11 [facility] COMPRE OPH EXAM EST PT 1/ 03845-9.65 [id number] 2 Diagnos is: ICD-10- CM E11.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 ations Devante PRINGLE ESTEFANIA 02/23 [facility] OFFICE O/P EST LOW 20 MIN 94378-7.65 [id number] 006 Diagnos is: ICD-10- CM F41.1 General ized anxiety disorde r TATE THOMPSON 02/24 [facility] Outpatient Encounter 23965-1.65 [id number] JENNIFER SAEZ 02/24 [facility] PT EDUCATION NOC GROUP 34310-5.65 [id number] 523 Diagnos is: ICD-10- CM Z72.3 Lack of physica l exercis e Michael WARNER 02/25 [facility] OFFICE O/P EST LOW 20 MIN 47019-8.65 [id number] 5 Diagnos is: ICD-10- CM 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 JOSE RAFAEL Caballero 03/01 [facility] Outpatient Encounter 49890-0.65 [id number] 2 03/01 [facility] Outpatient Encounter 87754-8.65 [id number] 4 03/02 [facility] EX[facility] CLASS 69170-3.65 [id number] 849 Diagnos is: ICD-10- CM Z72.3 Lack of physica l exercis e GREG ANDREA 03/04 [facility] PT EDUCATION NOC GROUP 86922-0.65 [id number] 562 Diagnos is: ICD-10- CM Z72.3 Lack of physica l exercis e LALIT,ANG SEEMA 03/09 [facility] PHYSICAL PERFORMANC E TEST 36352-1.65 [id number] 720 Diagnos is: ICD-10- CM Z72.3 Lack of physica l exercis e AR WINTER 03/10 [facility] EXERCISE CLASS 57918-6.65 [id number] 145 Diagnos is: ICD-10- CM Z72.3 Lack of physica l exercis e Michael WARNER 03/11 [facility] Outpatient Encounter 80461-1.65 [id number] 2 03/15 [facility] EX[facility] CLASS 79669-3.65 [id number] 124 Diagnos is: ICD-10- CM Z72.3 Lack of physica l exercis e SUZI,MELGAR NNAH J 03/16 [facility] EXERCISE CLASS 06321-7.65 [id number] 404 Diagnos is: ICD-10- CM Z72.3 Lack of physica l exercis e GEDULIG,MELGAR NNAH J 03/18 [facility] PT EDUCATION NOC GROUP 93067-7.65 [id number] 831 Diagnos is: ICD-10- CM Z72.3 Lack of physica l exercis e LALTI,ANG SEEMA 03/23 [facility] HC PRO PHONE CALL 5-10 MIN 29432-0.65 [id number] YI MARISCAL 03/23 [facility] PT EDUCATION NOC GROUP 28577-2.65 [id number] 550 Diagnos is: ICD-10- CM Z72.3 Lack of physica l exercis e GREG ANDREA 03/25 [facility] OFFICE O/P EST MOD 30 MIN 14783-6.65 [id number] 872 Diagnos is: ICD-10- CM 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 sophia SONNY SCHMIDT 03/26 [facility] EXERCISE CLASS 06273-8.65 [id number] 310 Diagnos is: ICD-10- CM Z72.3 Lack of physica l exercis e DEVI WELLS P 03/29 [facility] Outpatient Encounter 90495-5.65 [id number] 1 Diagnos is: ICD-10- CM 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 delilhaNOAH Shine 03/29 [facility] EXERC[facility] CLASS 92794-1.65 [id number] 377 Diagnos is: ICD-10- CM Z72.3 Lack of physica l exercis e Michael WARNER MY Neal 04/01 [facility] PT EDUCATION NOC GROUP 68282-2.65 [id number] 228 Diagnos is: ICD-10- CM Z72.3 Lack of physica l exercis e GREG ANDREA E 04/08 [facility] OFFICE O/P EST MOD 30 MIN 06244-5.65 [id number] 7 Diagnos is: ICD-10- CM Z01.818 Encount er for other preproc edural examina FABRIZIO Shoemaker RODOLFO F 04/12 [facility] Outpatient Encounter 28478-0.65 [id number] 04/14 [facility] OFF/OP EST MAY X REQ PHY/QHP 06198-9.65 [id number].[id number] 770 Diagnos is: ICD-10- CM 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 NEGRITA WARREN 04/14 [facility] PT EDUCATION NOC GROUP 55610-1.65 [id number] 379 Diagnos is: ICD-10- CM Z72.3 Lack of physica l exercis e Michael WARNER 04/15 [facility] Outpatient Encounter 46608-1.65 [id number] 04/29 [facility] HC PRO PHONE CALL 5-10 MIN 63549-9.65 [id number] 0 Diagnos is: ICD-10- CM R93.2 Abnorma l finding s on dx imaging of liver and biliary tract PEOPLES,JENNIFER Daniel 05/04 [facility] Outpatient Encounter 51344-9.65 [id number] 05/04 [facility] PT EDUCATION NOC GROUP 99587-1.65 [id number] 958 Diagnos is: ICD-10- CM Z72.3 Lack of physica l exercis e RAMÓN ARCHER J 05/06 [facility] OFF/OP EST MAY X REQ PHY/QHP 47590-4.65 [id number] 714 Diagnos is: ICD-10- CM E11.40 Type 2 diabete s mellitu s with diabeti c neuropa thy, unsp NEGRITA WARREN 05/06 [facility] Outpatient Encounter 23252-1.65 [id number] 6 05/07 [facility] OFFICE O/P EST MOD 30 MIN 68747-1.65 [id number] 3 Diagnos is: ICD-10- CM 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 8 GILLIAN BARNES IEL P 05/10 [facility] Outpatient Encounter 25525-0.65 [id number] 4 FANI OSCAR 05/10 [facility] Outpatient Encounter 41426-2.65 [id number] 1 JOSE RAFAEL MATHIS 05/10 [facility] Outpatient Encounter 23698-7.65 [id number] 9 05/10 [facility] LAPAROSCOP IC CHOLECYSTE CTOMY 71535-2.65 [id number] 2 RODRIGO RAMIREZ Wes 05/10 [facility] Outpatient Encounter 51579-2.65 [id number] 1 RODRIGO RAMIREZ Wes 05/10 [facility] Outpatient Encounter 07598-0.65 [id number] 1 FANI OSCAR 05/10 [facility] HOSP IP/OBS SAME DATE MOD 70 84907-8.65 [id number] 8 Diagnos is: ICD-10- CM K81.1 Chronic cholecy stitis JOSE RAFAEL MATHIS 05/10 [facility] Outpatient Encounter 75418-6.65 [id number] 2 CHAROWILFRID 05/10 [facility] Inpatient Encounter 72690-0.65 [id number] 9 Admit Reason: CHOLECY SITIS CARMELA MORRISON 05/10 [facility] Inpatient Encounter 25742-2.65 [id number] 0 JOSIAH ZEE 05/10 [facility] Inpatient Encounter 81186-6.65 [id number] 5 JOSIAH ZEE L 05/10 [facility] Inpatient Encounter 37067-7.65 [id number] 0 JOSIAH ZEE L 05/10 [facility] Inpatient Encounter 51890-5.65 [id number] 7 BRIAN HUERTA 05/10 [facility] Inpatient Encounter 32557-9.65 [id number] 1 RUSSELL ZUNIGA RALDINE 05/11 [facility] Inpatient Encounter 36567-1.65 [id number] 0 RUSSELL ZUNIGA RALDINE 05/11 [facility] Inpatient Encounter 59145-5.65 [id number] 5 RUSSELL ZUNIGA RALDINE 05/11 [facility] OFF/OP EST OCTOBER X REQ PHY/QHP 77160-8.65 [id number] 7 Diagnos is: ICD-10- CM K81.1 Chronic cholecy stitis JOSE RAFAEL MATHIS 05/11 [facility] Inpatient Encounter 33152-8.65 [id number] 4 YESI SWARTZ 05/11 [facility] Outpatient Encounter 99775-1.65 [id number] 9 SEYMOUR GOMEZ 05/11 [facility] Outpatient Encounter 45536-8.65 [id number] 1 05/12 [facility] OFF/OP EST MAY X REQ PHY/QHP 27530-3.65 [id number] 118 Diagnos is: ICD-10- CM Z71.9 Blow Pit Helper ing, unspeci fiNEGRITA Díaz 05/12 [facility] POSTOP FOLLOW-UP VISIT 75193-7.65 [id number] 8 Diagnos is: ICD-10- CM 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 JOSE RAFAEL Caballero 05/19 [facility] Outpatient Encounter 66678-0.65 [id number] 4 05/31 [facility] Outpatient Encounter 35477-1.65 [id number] 05/31 [facility] Outpatient Encounter 89682-3.65 [id number] 2 JENNIFER SAEZ M 06/03 [facility] EX[facility] CLASS 60473-4.65 [id number] 886 Diagnos is: ICD-10- CM Z72.3 Lack of physica l exercis e DEVI WELLS P 06/07 [facility] PT EDUCATION NOC GROUP 83348-9.65 [id number] 698 Diagnos is: ICD-10- CM Z72.3 Lack of physica l exercis e Michael WARNER 06/10 [facility] Outpatient Encounter 91227-3.65 [id number] 06/14 [facility] EDUCATION NOC GROUP 74940-3.65 [id number] 318 Diagnos is: ICD-10- CM Z72.3 Lack of physica l exercis e AR WINTER 06/21 [facility] PT EDUCATION NOC INDIVID 74419-8.65 [id number] 148 Diagnos is: ICD-10- CM Z72.3 Lack of physica l exercis e GREG ANDREA E 06/28 [facility] PT EDUCATION NOC GROUP 17429-7.65 [id number] 002 Diagnos is: ICD-10- CM Z72.3 Lack of physica l exercis e GEDULIG,MELGAR NNAH J 06/29 [facility] PT EDUCATION NOC GROUP 22173-9.65 [id number] 761 Diagnos is: ICD-10- CM Z72.3 Lack of physica l exercis e GREG ANDREA E 07/01 [facility] Outpatient Encounter 97461-8.65 [id number] 4 07/02 [facility] PT EDUCATION NOC GROUP 96570-1.65 [id number] 984 Diagnos is: ICD-10- CM Z72.3 Lack of physica l exercis e GEDULIG,MELGAR NNAH J 07/06 [facility] PT EDUCATION NOC GROUP 22047-1.65 [id number] 552 Diagnos is: ICD-10- CM Z72.3 Lack of physica l exercis e Michael WARNER 07/08 [facility] PT EDUCATION NOC GROUP 20953-6.65 [id number] 458 Diagnos is: ICD-10- CM Z72.3 Lack of physica l exercis e LUIS CARLOS COHN SEEMA 07/13 [facility] PT EDUCATION NOC GROUP 56327-6.65 [id number] 755 Diagnos is: ICD-10- CM Z72.3 Lack of physica l exercis e RUSSELLDEVI BANERJEE P 07/19 [facility] PT EDUCATION NOC GROUP 37113-0.65 [id number] 778 Diagnos is: ICD-10- CM Z72.3 Lack of physica l exercis e AR WINTER S 07/20 [facility] Outpatient Encounter 39168-6.65 [id number] 07/20 [facility] PT EDUCATION NOC GROUP 69497-5.65 [id number] 269 Diagnos is: ICD-10- CM Z72.3 Lack of physica l exercis e WILFRID ABREU 07/26 [facility] PT EDUCATION NOC GROUP 61194-3.65 [id number] 318 Diagnos is: ICD-10- CM Z72.3 Lack of physica l exercis e AR WINTER S 07/27 [facility] PT EDUCATION NOC GROUP 62559-5.65 [id number] 447 Diagnos is: ICD-10- CM Z72.3 Lack of physica l exercis e Michael WARNER 07/29 [facility] PT EDUCATION NOC GROUP 33242-2.65 [id number] 694 Diagnos is: ICD-10- CM Z72.3 Lack of physica l exercis e RAMÓN ARCHER NNAH J 08/03 [facility] PT EDUCATION NOC GROUP 38729-4.65 [id number] 293 Diagnos is: ICD-10- CM Z72.3 Lack of physica l exercis e GREG ANDREA 08/05 [facility] EXERCISE CLASS 10163-3.65 [id number] 451 Diagnos is: ICD-10- CM Z72.3 Lack of physica l exercis e RUSSELL,BENJ BROWNING P 08/16 [facility] ROMERO Courtney [facility] OFFICE O/P EST SF 10 MIN 61189-6.62 [id number] 65 Diagnos is: ICD-10- CM Z76.0 Encount er for issue of repeat prescri ption RISERLORENZO 08/18 [facility] Courtney [facility] ROMERO Samuels [facility] HEARING AID REPAIR/MOD IFYING 48565-3.62 [id number] 97 Diagnos is: ICD-10- CM Z46.1 Encount er for fitting and adjustm ent of hearing aid GOYO ACOSTA 08/19 [facility] Samuels [facility] PT EDUCATION NOC GROUP 23953-3.65 [id number] 236 Diagnos is: ICD-10- CM Z72.3 Lack of physica l exercis e AR WINTER 08/24 [facility] PT EDUCATION NOC GROUP 86304-3.65 [id number] 841 Diagnos is: ICD-10- CM Z72.3 Lack of physica l exercis e RUSSELL,BENJ BROWNING P 09/06 [facility] EXERCISE CLASS 57838-5.65 [id number] 490 Diagnos is: ICD-10- CM Z72.3 Lack of physica l exercis e AR WINTER S 09/14 [facility] PT EDUCATION NOC GROUP 73715-7.65 [id number] 297 Diagnos is: ICD-10- CM Z72.3 Lack of physica l exercis e Michael WARNER 09/16 [facility] PT EDUCATION NOC GROUP 28873-8.65 [id number] 800 Diagnos is: ICD-10- CM Z72.3 Lack of physica l exercis e DEVI WELLS P 09/20 [facility] PH1 ASSMT&MGMT NQHP 5-10 94487-8.65 [id number] YI MARISCAL 09/21 [facility] OFFICE O/P EST MOD 30 MIN 09766-8.65 [id number] 880 Diagnos is: ICD-10- CM 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 SAMPLES,SONNY HANNA 09/22 [facility] EDU&TRN PT SELF-MGMT NQHP 1 51770-8.65 [id number] 053 Diagnos is: ICD-10- CM Z72.3 Lack of physica l exercis e GREG ANDREA 09/23 [facility] PT EDUCATION NOC GROUP 58517-3.65 [id number] 057 Diagnos is: ICD-10- CM Z72.3 Lack of physica l exercis e AR WINTER S 09/27 [facility] PT EDUCATION NOC GROUP 05745-5.65 [id number] 158 Diagnos is: ICD-10- CM Z72.3 Lack of physica l exercis e Michael WARNER MY L 09/30 [facility] Outpatient Encounter 05921-6.65 [id number] 5 LAINE BRIDGES RLA F 10/04 [facility] Outpatient Encounter 01249-9.65 [id number] 4 LAINE BRIDGES RLA F 10/04 [facility] PT EDUCATION NOC GROUP 85929-4.65 [id number] 676 Diagnos is: ICD-10- CM Z72.3 Lack of physica l exercis e RUSSELL,BENJ BROWNING P 10/04 [facility] EDU&TRN PT SELF-MGMT NQHP 1 26815-3.65 [id number] 562 Diagnos is: ICD-10- CM Z72.3 Lack of physica l exercis e RUSSELL,BENJ BROWNING P 10/18 [facility] PT EDUCATION NOC GROUP 94524-5.65 [id number] 270 Diagnos is: ICD-10- CM Z72.3 Lack of physica l exercis e RUSSELL,BENJ BROWNING P 11/01 [facility] HEARING AID REPAIR/MOD IFYING 62465-1.65 [id number] 3 Diagnos is: ICD-10- CM Z46.1 Encount er for fitting and adjustm ent of hearing aid JAMES BARRAGAN 11/05 [facility] EX[facility] CLASS 48103-6.65 [id number] 487 Diagnos is: ICD-10- CM Z72.3 Lack of physica l exercis e AR WINTER 11/[facility] Outpatient Encounter 26777-8.65 [id number] 3 11/09 [facility] Outpatient Encounter 66530-1.65 [id number] 4 11/09 [facility] EXERCISE CLASS 88472-3.65 [id number] 653 Diagnos is: ICD-10- CM Z72.3 Lack of physica l exercis e AR WINTER S 11/11 [facility] PT EDUCATION NOC GROUP 27683-6.65 [id number] 960 Diagnos is: ICD-10- CM Z72.3 Lack of physica l exercis e AR WINTER S 11/16 [facility] Outpatient Encounter 10662-5.65 [id number] 3 11/16 [facility] Outpatient Encounter 47657-2.65 [id number] 4 11/26 [facility] Outpatient Encounter 03471-2.65 [id number] 6 11/29 [facility] PH1 ASSMT&MGMT NQHP 5-10 32738-3.65 [id number] 0 YI MARISCAL 12/03 [facility] PT EDUCATION NOC GROUP 67935-7.65 [id number] 103 Diagnos is: ICD-10- CM Z72.3 Lack of physica l exercis e DEVI WELLS P 12/06 [facility] OFFICE O/P EST MOD 30 MIN 74019-0.65 [id number].[id number] 001 Diagnos is: ICD-10- CM E11.40 Type 2 diabete s mellitu s with diabeti c neuropa thy, unsp SAMPLES,RO CINDA CYNDI 12/07 [facility] Outpatient Encounter 42499-9.65 [id number] 3 12/13 [facility] Outpatient Encounter 99843-8.65 [id number] 0 12/14 [facility] OFFICE O/P EST MOD 30 MIN 51039-3.65 [id number] 9 Diagnos is: ICD-10- CM Z98.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 ROXANNE ASHLEY 12/27 [facility] Outpatient Encounter 14950-3.65 [id number] 2 12/27 [facility] Outpatient Encounter 12453-2.65 [id number] 7 12/27 [facility] Outpatient Encounter 93678-8.65 [id number] 8 12/27 [facility] Outpatient Encounter 82207-8.65 [id number] 6 01/07 [facility] Outpatient Encounter 19267-4.65 [id number] 5 01/11 [facility] Outpatient Encounter 17033-2.65 [id number] 6 01/14 [facility] Outpatient Encounter 75128-5.65 [id number] 5 01/21 [facility] Outpatient Encounter 23560-9.65 [id number] 7 01/25 [facility] Outpatient Encounter 96662-0.65 [id number] 5 01/27 [facility] Outpatient Encounter 12813-4.65 [id number] 6 01/28 [facility] Procedures Combined list of: 1) Procedures from Department of [facility] facilities going back up to thelast 18 months, not all [place] non-surgical procedures are included; 2) All procedures from the Department of [facility] facilities. Procedure Procedure Type Code Date Perfomer Comments Sourc e LAPAROSCOPIC CHOLECYSTECTOMY LAPAROSCOPIC CHOLECYSTECTOMY 00578 05/10/20 24 ALON CARR [facility] Social History Combined list of available smoking, tobacco, and other social history from Department of [facility] and [facility] facilities. Social History Type Response Date Comment Sourc e Tobacco smoking status MNIS [facility] NEVER USED 03/26/2024 [facility] History of tobacco use VA-TOBACCO NEVER USED 02/10/2023 [facility] History of tobacco use VA-TOBACCO NEVER USED 01/11/2022 [facility] History of tobacco use VA-TOBACCO NEVER USED 07/12/2020 [facility] History of tobacco use VA-TOBACCO NEVER USED 05/21/2019 [facility] History of tobacco use VA-TOBACCO NEVER USED 05/12/2018 [facility] History of tobacco use LIFETIME NON-TOBA BOX SPINNER USER 11/10/2013 [facility] This section is an empty social history section. [facility] Plan of Care List of future care activities from Department of [facility] Affairs facilities. Additional future care activities may be listed in the Assessment and Plan section. Date/Time Care Activity Care Activity Detail Facili ty 02/17/2025 AMBULATORY - SURGERY AMBULATORY - SURGERY [facility] Advance Directives List of completed, amended, or rescinded Advance Directives on record at Department of Veterans Affairs facilities. An actual copy of the Directive is not included. Date Advance Directive Provider Source 01/14/2022 ADVANCE DIRECTIVE DISCUSSION SHEA WINTER [facility]
--- OUTSIDE RECORDS SUMMARY | 2025-01-28 15:15 | XMS_ITS | Encounter Summary ---
Author Name [facility] [place] Organization [facility] [place] Address [address] [place] [address] Care Team Providers Care Licensing Court Magistrate Name Role Phone KARON GARCIA Primary Care [...] B EXC) MAXIMO PALMA Jul 22, 2023 [id number] [phone] GABBI,GE DELONTE PATIENT [employer] PREFERRED PROVIDER ORGANIZAT ION (PPO) MAXIMO PALMA Apr 22, 2023 [id number] [phone] GABBI,GE DELONTE PATIENT [employer] PREFERRED PROVIDER ORGANIZAT ION (PPO) MAXIMO PALMA Jun 23, 2014 [id number] RUSSELL SEOTrudy PATIENT [employer]ET[employer] PHARMACY PRESCRIPT ION NONE Feb 11, 2017 NONE [id number] [phone] RUSSELL SEO PATIENT [employer] PHARMACY PRESCRIPT ION NONE Feb 11, 2017 NONE [id number] RUSSELL SEO PATIENT [employer] RX PRESCRIPT ION RX PLAN Jun 23, 2021 [id number] RUSSELL SEO PATIENT [employer] RX PRESCRIPT ION RX PLAN Jun 23, 2021 [id number] RUSSELL SEO PATIENT [employer] RX PRESCRIPT ION FEHBP Jun 23, 2014 [id number] RUSSELL SEO PATIENT AETNA [facility] PREFERRED PROVIDER ORGANIZAT ION (PPO) MAXIMO PALMA Jun 23, 2014 [id number] RUSSELL SEO PATIENT MEDICARE (WNR) MEDICARE () PART B May 23, 2008 PART B [id number] RUSSELL SEO PATIENT MEDICARE (WNR) MEDICARE () PART B May 23, 2008 PART B [id number] RUSSELL SEO PATIENT MEDICARE (WNR) MEDICARE (M) PART A Apr 23, 2008 PART A [id number] RUSSELL SEO PATIENT MEDICARE (WNR) MEDICARE (M) PART A Apr 23, 2008 PART A [id number] RUSSELL SEO PATIENT MEDICARE (WNR) MEDICARE () PART A Apr 23, 2008 PART A [id number] [phone] RUSSELL SEO PATIENT MEDICARE (WNR) MEDICARE (M) PART B Apr 23, 2008 PART B [id number] [phone] RUSSELL SEO PATIENT Selected Encounter This section includes the information on record at [place] for the Encounter. Date/Time Encounter Type Encounter Description Reason Pro vider Source Jan 28, 2025 02:35 PM Outpatient Encounter TELEPHONE TRIAGE IHE Encounter Template Text not used by [facility] Plan of Treatment: Future Appointments (+ 6 months) and Future Tests (+/- 45 days) The Plan of Treatment section includes future care activities for the patient from all [place] [facility]. This section includes future appointments and future orders which are active, pending or scheduled. Future Appointments This section includes appointments that were scheduled to occur 6 months from the date of the Encounter, up to a maximum of 20 appointments. The data comes from all [facility]. Appointment Date/Time Appointment Type Appointme nt Facility Name Feb 17, 2025 01:00 PM AMBULATORY - SURGERY [facility] Mar 24, 2025 02:30 PM AMBULATORY - MEDICINE [facility] Active, Pending, and Scheduled Orders This section includes a listing of several types of active, pending, and scheduled orders, including clinic medications orders, diagnostic test orders, procedure orders and consult orders; where the start date of the order is 45 days before the date of the Encounter or 45 days after the date of theEncounter. The data comes from all [facility]. Test Date/Time Test Type Test Details Facility Name Jan 13, 2025 11:32 AM Consult Order PROSTHETIC S REQUEST - [facility] Cons Perinatology Physician's Choice [facility] Advance Directives: All historical and current Section Date Range: From patient's date of to the date document was created. This section includes ALL of a patient's completed or amended [place] Advance and Rescinded Directives. The entries below indicate that a directive exists for the patient, but an actual copy is not included with this document. The data comes from all [facility]. Date Advance Directives Provider Source Jan 14, 2022 ADVANCE DIRECTIVE DISCUSSION SHEA WINTER [facility] Encounter Notes: All associated encounter notes This section contains the clinical notes associated to the Encounter. Date/Time Encounter Note(s) Provider Source Jan 28, 2025 02:35 PM RN PROGRESS NOTE: LOCAL TITLE: CCC: CLINICAL TRIAGE STANDARD TITLE: RN PROGRESS NOTE DATE OF NOTE: JAN 28, 2025@14:35:40 ENTRY DATE: JAN 28, 2025@14:35:40 AUTHOR: JIGNESH GUSMAN COSIGNER: URGENCY: STATUS: COMPLETED Caller Verification Call Back Number: [phone] Caller/Recipient Relation to Patient: Self Caller Name: LORETO SEO Emergency Contact: BLANCO SEO Triage Summary Conducted triage/discussed symptoms Utilized the Triage Tool: Yes Chief Complaint: Dizziness - Lightheadedness, Diabetes - High Blood Sugar Nurse's Recommendation / WHEN: Now Nurse's Recommendation / WHERE: ED [facility] Patient Disposition Patient/Caregiver agrees to plan of care: Yes Nursing Plan and Disposition Referred patient to higher level of care Instructed to go to Emergency Room (ER) Other course(s) of action Generated msg to PACT/Provider Provided guidance for worsening symptoms: *Caller/Patient* advised to call facilities [place] Clinical Contact Center or seek immediate medical attention for new or worsening symptoms Nurse Summary Nurse Summary: [place] c/o lightheadedness whenever he stands up. He says it is hard on him whenever he stands up to urinate. Advised that he needs to present to the er to be evaluated. His current BS is 232 BP-166/77 P-55. He is concerned about getting started on the Ozempic. He says he eber present to the ER to be evaluated. Told him his Pact team would contact him regarding the Ozempic. Clinical Contact Center Codes Clinic/Location: [address] PHONE [facility] RN Decision Support System Output: Triage Complete Triage Date: 01/28/2025, 02:24 PM Triage Note: Decision Support Tool Used: ClearTriage Protocols Used (2): Dizziness - Lightheadedness, Diabetes - High Blood Sugar Disposition for Call: Go to ED or Consult Tele-EC Now Protocol Used: Dizziness - Lightheadedness Protocol-Based Disposition: Go to ED or Consult Tele-EC Now Positive Triage Question: * SEVERE dizziness (e.g., unable to stand, requires support to walk, feels like passing out now) Negative Triage Questions: * SEVERE difficulty breathing (e.g., struggling for each breath, speaks in single words) * [1] Difficulty breathing or swallowing AND [2] started suddenly after medicine, an allergic food or bee sting * Shock suspected (e.g., cold/pale/clammy skin, too weak to stand, low BP, rapid pulse) * Difficult to awaken or acting confused (e.g., disoriented, slurred speech) * [1] Weakness (i.e., paralysis, loss of muscle strength) of the face, arm or leg on one side of the body AND [2] sudden onset AND [3] present now * [1] Numbness (i.e., loss of sensation) of the face, arm or leg on one side of the body AND [2] sudden onset AND [3] present now * [1] Loss of speech or garbled speech AND [2] sudden onset AND [3] present now * Overdose (accidental or intentional) of medications * [1] Fainted > 15 minutes ago AND [2] still feels too weak or dizzy to stand * Heart beating < 50 beats per minute OR > 140 beats per minute * Sounds like a life-threatening emergency to the triager * [1] Weakness (i.e., paralysis, loss of muscle strength) of the face, arm / hand, or leg / foot on one side of the body AND [2] sudden onset AND [3] brief (now gone) * [1] Numbness (i.e., loss of sensation) of the face, arm / hand, or leg / foot on one side of the body AND [2] sudden onset AND [3] brief (now gone) * [1] Loss of speech or garbled speech AND [2] sudden onset AND [3] brief (now gone) * Loss of vision or double vision (Exception: Similar to previous migraines.) * Difficulty breathing Protocol Used: Diabetes - High Blood Sugar Protocol-Based Disposition: Home Care Positive Triage Question: * Blood glucose 70-240 mg/dL (3.9 -13.3 mmol/L) Care Advice Discussed: * Reasons To Call Back Negative Triage Questions: * Unconscious or difficult to awaken * Acting confused (e.g., disoriented, slurred speech) * Very weak (e.g., can't stand) * Sounds like a life-threatening emergency to the triager * [1] Vomiting AND [2] signs of dehydration (e.g., very dry mouth, lightheaded, dark urine) * [1] Blood glucose > 240 mg/dL (13.3 mmol/L) AND [2] rapid breathing * [1] New-onset diabetes suspected (e.g., frequent urination, weak, weight loss) AND [2] vomiting or rapid breathing * Blood glucose > 500 mg/dL (27.8 mmol/L) * [1] Blood glucose > 240 mg/dL (13.3 mmol/L) AND [2] urine ketones moderate-large (or more than 1+) * [1] Blood glucose > 240 mg/dL (13.3 mmol/L) AND [2] blood ketones > 1.4 mmol/L * [1] Blood glucose > 240 mg/dL (13.3 mmol/L) AND [2] vomiting AND [3] unable to check for ketones (in blood or urine) * Vomiting lasts > 4 hours * Patient sounds very sick or weak to the triager * Fever > 100.4 F (38.0 C) * Blood glucose > 400 mg/dL (22.2 mmol/L) * [1] Blood glucose > 300 mg/dL (16.7 mmol/L) AND [2] two or more times in a row * Urine ketones moderate - large (or blood ketones > 1.4 mmol/L) * [1] Symptoms of high blood sugar (e.g., increased thirst, frequent urination, weight loss) AND [2] not able to test blood glucose AND [3] * [1] Caller has URGENT medication or insulin device (e.g., pump, continuous monitoring) question AND [2] triager unable to answer question IMPORTANT: This note was created by [facility] Clinical Contact Center staff. Please do not alert the staff member by adding them as a signer for future communications. Alerts are not monitored by this user. /leobardo/ JIGNESH GUSMAN RN Signed: 01/28/2025 14:35 Receipt Acknowledged By: 01/28/2025 14:41 /leobardo/ ZEINAB MARISCAL LPN LICENSED PRACTICAL NURSE * AWAITING SIGNATURE * SAMPLES,STEVEN HANNA * AWAITING SIGNATURE * RONNY PERALTA KAHLA M [facility]
--- NOTE | 2025-01-28 15:19 | ECG_ITS ---
Test Date: 2025-01-28 15:25:37 Measurements Intervals [place] Rate: 71 P: 34 CT: 282 QRS: 10 QRSD: 105 T: 32 QT: 380 QTc: 416 Interpretive Statements SINUS RHYTHM WITH FIRST DEGREE AV BLOCK DELAYED PRECORDIAL R/S TRANSITION CONSIDER INFERIOR INFARCT, AGE INDETERMINATE BASELINE ARTIFACT- AVF ABNORMAL ECG No previous ECG available for comparison Electronically Signed On 01-28-2025 15:32:23 CDT by Jose L Roland D.O.
--- NOTE | 2025-01-28 15:24 | ED_ITS ---
HPI - General Adult General Chief complaint: Dizziness Stated complaint: dizzy Time Seen by Provider: 01/28/25 15:13 History of Present Illness HPI narrative: 79-year-old male presents to the emergency department for evaluation for dizziness and lightheadedness. Patient was emotionally distraught after getting kicked out of his house by his approximately 1 month ago. Family states patient has had decreased p.o. intake. Patient reports persistent lightheaded dizziness when standing with urination in particular. Patient denies any falls or injuries. Patient did have a tearful affect on examination. Related Data Home Medications ?Medication ?Instructions ?Recorded ?Confirmed ?Last Taken ?Type aspirin 81 mg tablet,delayed 81 mg PO QHS 01/28/25 01/28/25 01/27/25 History release (Adult Low Dose Aspirin) atorvastatin 80 mg tablet (Lipitor) 80 mg PO DAILY 01/28/25 01/28/25 01/28/25 History cetirizine 10 mg tablet (24Hour 10 mg PO DAILY 01/28/25 01/28/25 01/28/25 History Allergy) cholecalciferol (vitamin D3) 50 50 mcg PO QHS 01/28/25 01/28/25 01/27/25 History mcg (2,000 unit) capsule (Vitamin D3) clopidogrel 75 mg tablet (Plavix) 75 mg PO DAILY 01/28/25 01/28/25 01/28/25 History cyclobenzaprine 10 mg tablet 10 mg PO HS 01/28/25 01/28/25 01/27/25 History donepezil 10 mg tablet (Aricept) 10 mg PO HS 01/28/25 01/28/25 01/27/25 History empagliflozin 25 mg tablet 25 mg PO DAILY 01/28/25 01/28/25 01/28/25 History (Jardiance) hydrocodone 5 mg-acetaminophen 325 1 tablet PO Q4H PRN pain 01/28/25 01/28/25 01/28/25 History mg tablet irbesartan 75 mg tablet 75 mg PO DAILY 01/28/25 01/28/25 01/28/25 History isosorbide mononitrate 30 mg 30 mg PO QHS 01/28/25 01/28/25 01/27/25 History tablet,extended release 24 hr mecobalamin (vitamin B12) 1,000 1,000 mcg PO QHS 01/28/25 01/28/25 01/27/25 History mcg lozenges melatonin 5 mg capsule 5 mg PO QHS 01/28/25 01/28/25 01/27/25 History metformin 1,000 mg tablet 1,000 mg PO DAILY 01/28/25 01/28/25 01/28/25 History metoprolol succinate 25 mg 25 mg PO DAILY 01/28/25 01/28/25 01/28/25 History tablet,extended release 24 hr omeprazole 40 mg capsule,delayed 40 mg PO DAILY 01/28/25 01/28/25 01/28/25 History release tamsulosin 0.4 mg capsule 0.4 mg PO BID 01/28/25 01/28/25 01/28/25 09:00 History Allergies Allergy/AdvReac Type Severity Reaction Status Date / Time simvastatin Allergy Muscle Pain Verified 01/28/25 20:31 MAURICE Inhibitors AdvReac cough Verified 01/28/25 20:31 Review of Systems 2 Review of Systems: All systems reviewed & are unremarkable except as noted in HPI and below [facility] Social History Social History (System 01/27/25 @ 16:50 by Micaela Stout) Smoking status: Never smoker Alcohol intake: never Substance use: never Lack of Transportation: No Lack of Food: Never True Current Housing: I Do Not Have Housing Concerned About Future Housing: YES Difficulty Paying Gas/Electric Bills: No Difficulty Paying for Meds: No Currently Unemployed: No Education: Bachelor's Degree Difficulty w/ Childcare or Family Care: No Spiritual care concerns: No Exam 2 Narrative: APPEARANCE: Tearful affect HEAD: normocephalic, atraumatic. EYES: PERRLA/EOMI, conjunctivae clear. NOSE: Normal no drainage EARS:TMS clear with good light reflex. THROAT: Pharynx clear, no exudate. NECK: Supple. No adenopathy, no masses. RESPIRATORY: Airway patent, respirations nonlabored. Clear to auscultation bilaterally, no rales, rhonchi, wheezing. CARDIOVASCULAR: Regular rate and rhythm without murmurs rubs or gallops. ABDOMINAL: Soft, nontender, nondistended, normal bowel sounds MUSCULOSKELETAL: Mild right knee edema with no pain with passive range of motion no tenderness to palpation, no posterior calf tenderness to palpation NEURO: Alert. Cranial nerves II through XII intact. Good gait. Good coordination SKIN: Well-appearing surgical incision of the right knee Course Vital Signs Vital signs: Vital Signs Pulse Rate 78 01/28/25 15:28 Blood Pressure 164/83 H 01/28/25 15:28 Temperature 98.9 F 01/28/25 19:06 Pulse Rate 69 01/28/25 19:06 Respiratory Rate 18 01/28/25 19:06 Blood Pressure 153/63 H 01/28/25 19:06 Pulse Oximetry 100 01/28/25 19:06 Oxygen Delivery Room Air 01/28/25 15:33 Medical Decision Making MDM Narrative Medical decision making narrative: 79-year-old male presents emergency department for evaluation for decreased p.o. intake and lightheaded dizziness. Patient is currently afebrile no leukocytosis hemoglobin of 14.1. Patient has a INR 1.1. No acute abnormalities on the patient's CMP, patient's glucose is mildly elevated at 122 but patient does not have elevated beta hydroxybutyrate. Patient's proBNP is also not elevated. EKG shows sinus arrhythmia with a first-degree AV block. Patient was treated with 2 L of lactated Ringer's but still is symptomatic and has positive orthostatic vital signs. Case was discussed with hospitalist patient was accepted for admission. Differential Diagnosis Differential Diagnosis: Orthostatic hypotension, decreased p.o. intake, depression, anxiety, pneumonia, urinary tract infection Vital Signs Vital Signs: Vital Signs Pulse Rate 78 01/28/25 15:28 Blood Pressure 164/83 H 01/28/25 15:28 Temperature 98.9 F 01/28/25 19:06 Pulse Rate 69 01/28/25 19:06 Respiratory Rate 18 01/28/25 19:06 Blood Pressure 153/63 H 01/28/25 19:06 Pulse Oximetry 100 01/28/25 19:06 Oxygen Delivery Room Air 01/28/25 15:33 Lab Data Lab results reviewed: Yes I reviewed the patient's lab results. 01/28/25 15:27 01/28/25 20:16 Labs: Lab Results 01/28/25 Range/Units 15:27 WBC 8.7 (4.5-10.0) K/mm3 RBC 4.49 L (4.6-6.20) M/mm3 Hgb 14.1 (14.0-18.0) g/dL Hct 44.1 (42.0-52.0) % MCV 98.2 (80-100) fl MCH 31.4 (26-34) pg MCHC 32.0 (32-36) g/dl RDW 12.5 (11.5-14.5) % Plt Count 337 (150-375) k/mm3 MPV 9.1 (7.4-10.4) fl Immature Gran % (Auto) 0.2 (0-0.5) % Neut % (Auto) 67.7 (45.5-73.1) % Lymph % (Auto) 21.6 (18.3-44.2) % [place] % (Auto) 8.1 (2.6-8.5) % Eos % (Auto) 1.9 (0-4.4) % Baso % (Auto) 0.5 (0.2-1.2) % Lymph # (Auto) 1.88 (0.9-3.2) K/mm3 [place] # (Auto) 0.7 H (0.1-0.6) K/mm3 Eos # (Auto) 0.2 (0-0.3) K/mm3 Baso # (Auto) 0.0 (0.0-0.1) K/mm3 Abs Immat Gran (auto) 0.02 (0.00-0.031) K/mm3 Absolute Neuts (auto) 5.9 (1.3-6.7) K/mm3 Absolute Nucleated RBC 0.000 (0.0-0.012) K/mm3 Nucleated RBC % 0.0 (0.0-0.2) % PT 14.2 (11.1-14.7) Seconds INR 1.1 APTT 27.0 (22.3-36.8) Seconds Sodium 134 L (137-145) mmol/L Potassium 4.6 (3.4-5.0) mmol/L Chloride 100 (98-107) mmol/L Carbon Dioxide 21 L (22-30) mmol/L Anion Gap 13 H (4-12) mmol/L BUN 20 (9-20) mg/dL Creatinine 1.02 (0.7-1.3) mg/dL Estim Creat Clear Calc Not Reportable Estimated GFR > 60 (59 - ) Glucose 122 H (65-110) mg/dL Calcium 9.5 (8.4-10.2) mg/dL Total Bilirubin 1.3 (0.2-1.3) mg/dL AST 28 (17-59) U/L ALT 28 (6-50) U/L Alkaline Phosphatase 220 H (38-126) U/L NT-Pro-B Natriuret Pep 165 H (19.9-100) pg/mL Total Protein 7.7 (6.3-8.2) g/dL Albumin 4.1 (3.5-5.1) g/dL Beta-Hydroxybutyrate/Acetoacetate 0.29 H (0.02-0.27) mmol/L Discharge Plan Discharge Clinical Impression: Orthostatic hypotension, Light-headedness Patient Disposition: Still a Patient Condition: Stable
[2025-01-28 15:33] LABS: Hematocrit 44.1 % (42.0-52.0); Hemoglobin 14.1 g/dL (14.0-18.0); Immature Granulocyte Percent A 0.2 % (0-0.5); Lymphocytes Absolute Auto 1.88 K/mm3 (0.9-3.2); Mean Corpuscular HGB Conc 32.0 g/dl (32-36); Mean Corpuscular Hemoglobin 31.4 pg (26-34); Mean Corpuscular Volume 98.2 fl (80-100); Nucleated Red Blood Cells Absolute Auto 0.000 K/mm3 (0.0-0.012); Nucleated Red Blood Cells Perc 0.0 % (0.0-0.2); Platelet Count Result 337 k/mm3 (150-375); Red Blood Count 4.49 M/mm3 (4.6-6.20); White Blood Count 8.7 K/mm3 (4.5-10.0)
[2025-01-28 15:45] LABS: Alanine Aminotransferase 28 U/L (6-50); Albumin Level 4.1 g/dL (3.5-5.1); Alkaline Phosphatase 220 U/L (38-126); Anion Gap 13 mmol/L (4-12); Aspartate Amino Transferase 28 U/L (17-59); Bilirubin,Total 1.3 mg/dL (0.2-1.3); Blood Urea Nitrogen 20 mg/dL (9-20); Calcium 9.5 mg/dL (8.4-10.2); Carbon Dioxide 21 mmol/L (22-30); Chloride 100 mmol/L (98-107); Estimated Glomerular Filt Rate > 60; Glucose 122 mg/dL (65-110); Potassium 4.6 mmol/L (3.4-5.0); Sodium 134 mmol/L (137-145); Total Protein 7.7 g/dL (6.3-8.2)
[2025-01-28] MEDS: LACTATED RINGERS 1,000 ML 999 ML IV CONT ×2 (15:50→16:26)
[2025-01-28 15:53] LABS: NT Pro B Type Natriuretic Pept 165 pg/mL (19.9-100)
[2025-01-28 15:55] LABS: Beta-Hydroxybutyrate/Acetoacetate 0.29 mmol/L (0.02-0.27); INR 1.1; Partial Thromboplastin Time 27.0 Seconds (22.3-36.8); Prothrombin Time 14.2 Seconds (11.1-14.7)
--- OUTSIDE RECORDS SUMMARY | 2025-01-28 16:40 | XMS_ITS | Clinical Summary ---
Author Organization [facility] Address [address] [place] [address] Care Team Providers Care Supervisor [employer] Name Role Phone Pauly OWEN MD, Yayo Serra Primary Care Provider [phone] Pablito Hinton MD Unavailable [phone] LongoPaul PHONE SCREENER, IMAGING TECHNOLOGIST Unavailable Allergies Active Allergy Reactions Criticality Noted [...] on file Legal Sex Male 3:03 AM [employer] Gender Identity Not on file Sexual Orientation Not on file Occupation Industry Job Start Date Job End Date Retired Not on file Not on file Not on file Last Filed Vital Signs Vital Sign Reading Time Taken Comments Blood Pressure 124/50 07/12/2021 10:33 AM [employer] Pulse 56 07/12/2021 10:33 AM [employer] Temperature - - Respiratory Rate 16 07/12/2021 10:33 AM [employer] Oxygen Saturation - - Inhaled Oxygen Concentration - - Weight 105.7 kg (233 lb) 07/12/2021 10:33 AM [employer] Height 182.9 cm (6') 07/12/2021 10:33 AM [employer] Body Mass Index 31.6 07/12/2021 10:33 AM [employer] Plan of Treatment Health Maintenance Due Date [...] Relevant to Health [place] [id number] [employer] on file Care Teams Supervisor [employer] Relationship Specialty Start Date End Date Yayo Coats II, MD [address] [place] [address] PCP - General 12/17/09 Pablito Hinton MD [address] [place] [address] Consulting Physician Interventional Cardiology 10/16/15 Paul Longo, PHONE SCREENER, IMAGING TECHNOLOGIST [address] [place] [address] Nurse Practitioner Advanced Practice Nurse 09/14/20
--- OUTSIDE RECORDS SUMMARY | 2025-01-28 16:41 | XMS_ITS | Clinical Summary ---
Author Organization [facility] First Address [address] [place] [address] Care Team Providers Care Lift Builder Whole Name Role Phone Unavailable Primary Care Provider Unavailabl e Allergies Active Allergy Reactions Criticality Noted Date Comments Yaw Inhibitors Cough Low 08/08/2015 cough Simvastatin Muscle Pain Low 01/11/2022 Medications metFORMIN 1,000 mg tablet Take 1,000 mg by mouth daily with breakfast. 08/27/19 23 Active cyanocobalamin 1,000 mcg Tablet Take 1,000 mcg by mouth daily. 02/12/20 23 Active atorvastatin (LIPITOR) 80 mg tablet Take 1 Tablet by mouth daily. 01/25/20 21 Active cetirizine (ZyrTEC) 10 mg tablet Take 10 mg by mouth daily. 09/23/19 25 Active donepeziL (ARICEPT) 10 mg tablet Take 10 mg by mouth daily at bedtime. 03/26/20 24 Active busPIRone (BUSPAR) 10 mg tablet Take 5 mg by mouth daily. 02/25/20 24 Active cholecalciferol, Vitamin D3, 50 mcg (2,000 unit) Tablet Take 50 mcg by mouth. 09/23/19 25 Active clopidogreL (PLAVIX) 75 mg Tablet Take 75 mg by mouth daily. 03/26/20 24 Active empagliflozin (JARDIANCE) 25 mg tablet Take 12.5 mg by mouth. 03/26/20 24 Active isosorbide mononitrate (IMDUR) 30 mg Extended Release 24 hour tablet Take 30 mg by mouth daily in the morning. 09/23/19 25 Active omeprazole (PriLOSEC) 40 mg Capsule, Delayed Release(E.C.) Take 40 mg by mouth daily. 09/23/19 25 Active tamsulosin (FLOMAX) 0.4 mg capsule Take 0.8 mg by mouth 2 times daily. 09/23/19 25 Active aspirin (ECOTRIN EC) 81 mg Tablet, Delayed Release (E.C.) Take 1 Tablet (81 mg) by mouth 2 times daily. 60 Tablet 5 11:13 AM CDT 01/07/20 25 Active docusate sodium (Colace) 100 mg capsule Take 1 Capsule (100 mg) by mouth 2 times daily as needed for Constipati on. 60 Capsule 3 5 11:13 AM CDT 01/07/20 25 Active HYDROcodone-aceta minophen (NORCO) 5-325 mg tabletIndications :Post-op pain Take 1 Tablet by mouth every 4 hours as needed for Pain, Moderate. Max Daily Amount: 6 Tablets 42 Tablet 01/28/20 25 Active cyclobenzaprine (FLEXERIL) 10 mg tablet 1 tablet BEDTIME (route: oral) 01/08/20 25 Active metoprolol succinate (Toprol XL) 25 mg Extended Release 24 hour tablet Take 1 Tablet (25 mg) by mouth daily. 90 Tablet 3 01/28/20 25 Active aspirin 81 mg tablet,delayed release Take 81 mg by mouth daily. Discontinued metoprolol succinate (TOPROL XL) 100 mg Extended Release 24 hour tablet Take 50 mg by mouth daily. Discontinued Irbesartan (AVAPRO) 75 mg tablet Take 75 mg by mouth daily. 03/26/20 24 Discontinued(Ne w contraindicatio n) HYDROcodone-aceta minophen (NORCO) 5-325 mg tabletIndications :Primary osteoarthritis of right knee Take 1 Tablet by mouth every 4 hours as needed for Pain, Moderate. Max Daily Amount: 6 Tablets 42 Tablet 5 11:13 AM CDT 01/07/20 25 025 Discontinued(Re order) HYDROcodone-aceta minophen (NORCO) 5-325 mg tabletIndications :Post-op pain Take 1 Tablet by mouth every 4 hours as needed for Pain, Moderate. Max Daily Amount: 6 Tablets 42 Tablet 01/18/20 25 025 Discontinued(Re order) Irbesartan (AVAPRO) 300 mg tablet Take 300 mg by mouth daily. 025 Discontinued(Ne w contraindicatio n) atorvastatin (LIPITOR) 80 mg tablet Take 80 mg by mouth daily. 01/08/20 25 025 Discontinued Active Problems Problem Noted Date Diagnosed Date [...] loss 12/28/2014 Hypothyroidism 06/25/2010 Overview (10/28/2024): MARYJO HICKMAN Esophageal reflux 10/11/2008 Overview (10/28/2024): CONNER JUNIOR MD Hyperlipidemia 01/27/2006 Overview (10/28/2024): MARYJO HICKMAN Hypertensive heart disease 07/26/2004 Overview (10/28/2024): Conner HANNA Encounters Date Type Department Care Team Description 01/27/2025 3:00 PM CDT Office Visit [facility] Heart and Vascular - [address] [place] [address] Jasvir Coffey MD Coronary artery disease - PCI x 3 in 2012 (Primary Dx); Type 2 diabetes mellitus without complication, without long-term current use of insulin ([facility]); Aneurysm of ascending aorta without rupture; Dyslipidemia; Hypotension, unspecified hypotension type 01/26/2025 Refill [facility] Orthopedic Surgery - [address] [place] [address] Conner Degroot MD Post-op pain 01/21/2025 Telephone [facility] Heart and Vascular - [address] [place] [address] Jasvir Coffey MD Information 01/20/2025 10:00 AM CDT Clinical Support [facility] Heart and Vascular - [address] [place] [address] Hypotension, unspecified hypotension type (Primary Dx) 01/20/2025 9:20 AM CDT Office Visit [facility] Orthopedic Surgery - [address] [place] [address] Conner Degroot MD Postoperative visit (Primary Dx); Aftercare following right knee joint replacement surgery; Presence of right artificial knee joint; S/P robot-assisted surgical procedure 01/17/2025 Refill [facility] Orthopedic Surgery - [address] [place] [address] Conner Degroot MD Post-op pain (Primary Dx); Primary osteoarthritis of right knee 01/07/2025 Telephone [facility] Orthopedic Surgery - [address] [place] [address] Conner Degroot MD Question 01/05/2025 10:15 AM CDT Anesthesia Event [facility] Operating Room [address] [place] [address] Cam Marie MD 01/05/2025 9:40 AM CDT - 01/05/2025 12:40 PM CDT Surgery [facility] Operating Room [address] [place] [address] Conner Degroot MD KNEE ARTHROPLASTY TOTAL REPLACEMENT COMPUTER/ROBOTIC ASSISTED 01/05/2025 8:01 AM CDT - 01/06/2025 1:05 PM CDT Hospital Encounter [facility] Medical Surgical Pediatrics [address] [place] [address] Conner Degroot MD Primary osteoarthritis of right knee Discharge Disposition: Home Health Care [facility] 01/05/2025 Travel 01/04/2025 Orders Only [facility] Orthopedic Surgery - [address] [place] [phone] Conner Degroot MD Orthopedic aftercare (Primary Dx) 12/31/2024 Prep for Surgery [facility] Orthopedic Surgery - [address] [place] [phone] Conner Degroot MD Primary osteoarthritis of right knee (Primary Dx) 12/17/2024 Orders Only [facility] Orthopedic Surgery - [address] [place] [phone] Conner Degroot MD Primary osteoarthritis of right knee (Primary Dx) 12/13/2024 10:53 AM CDT - 12/13/2024 11:59 PM CDT Hospital Encounter [facility] Imaging Services [address] [place] [address] Conner Degroot MD Discharge Disposition: Home or Self Care 12/13/2024 10:04 AM CDT - 12/13/2024 11:59 PM CDT Hospital Encounter [facility] Support Services Cardiac [address] [place] [address] Conner Degroot MD Discharge Disposition: Home or Self Care 12/13/2024 10:02 AM CDT - 12/13/2024 11:59 PM CDT Hospital Encounter [facility] Outpatient Laboratory Services [place] [place] [address] Conner Degroot MD Discharge Disposition: Home or Self Care 12/13/2024 9:59 AM CDT - 12/13/2024 11:59 PM CDT Hospital Encounter [facility] Preadmission Screening [address] [place] [address] Conner Degroot MD Preadmission Screening, Nurse Discharge Disposition: Home or Self Care 12/13/2024 8:25 AM CDT - 12/13/2024 11:59 PM CDT Hospital Encounter [facility] Therapy Services [address] [place] [address] Conner Degroot MD Meier, Gary E, Physical Therapist Discharge Disposition: Home or Self Care 12/13/2024 Travel 12/13/2024 Orders Only [facility] Orthopedic Surgery - [address] [place] [phone] Conner Degroot MD Primary osteoarthritis of right knee (Primary Dx) 12/10/2024 Telephone [facility] Orthopedic Surgery - [address] [place] [address] Reginald Queen DO Surgery 12/06/2024 External Device Data Initial Department [address] [place] [address] Dr BERNSTEIN: [place] [address] Noe Owen Md 12/06/2024 Telephone [facility] Orthopedic Surgery - [address] [place] [phone] Conner Degroot MD Medication Question 12/06/2024 Prep for Surgery [facility] Orthopedic Surgery - [address] [place] [address] Conner Degroot MD Primary osteoarthritis of right knee (Primary Dx); Monitoring for anticoagulant use 11/18/2024 Abstract [facility] Orthopedic Surgery - [address] [place] [address] Conner Degroot MD 11/10/2024 External Device Data STL ABSTRACTION Provider, Abstract 11/09/2024 1:30 PM CDT Office Visit [facility] Orthopedic Surgery - [address] [place] [phone] Conner Degroot MD Chronic pain of both knees (Primary Dx); Primary osteoarthritis of right knee 11/09/2024 External Device Data STL ABSTRACTION Provider, Abstract 11/05/2024 Abstract [facility] Orthopedic Surgery - [address] [place] [phone] Conner Degroot MD 11/02/2024 External Device Data [...] Sign Reading Time Taken Comments Blood Pressure 108/60 01/27/2025 2:47 PM CDT Pulse 64 01/27/2025 2:47 PM CDT Temperature 36.8 C (98.2 F) 01/06/2025 7:52 AM CDT Respiratory Rate 18 01/27/2025 2:47 PM CDT Oxygen Saturation 97% 01/20/2025 10:07 AM CDT Inhaled Oxygen Concentration - - Weight 97.1 kg (214 lb) 01/27/2025 2:47 PM CDT Height 182.9 cm (6') 01/27/2025 2:47 PM CDT Body Mass Index 29.02 01/27/2025 2:47 PM CDT Plan of Treatment Upcoming Encounters Date Type Department Care Team (Late st Contact Info) Description 03/03/2025 10:30 AM CDT Office Visit [facility] Orthopedic Surgery - [address] [address] Conner Degroot MD [address] [place] [address] 03/03/2025 11:45 AM CDT Office Visit [facility] Heart and Vascular - [address] [place] [phone] Jasvir Coffey MD [address] [place] [phone] 04/28/2025 1:45 PM SOFT TILE SETTER Office Visit [facility] Heart and Vascular - [address] [place] [phone] Jasvir Coffey MD [address] [place] [address] Health Maintenance Due Date Last Done Comments DIABETES ANNUAL FOOT EXAM 1961 DIABETES MICROALBUMIN ANNUAL SCREEN 1961 RSV VACCINE (60+ or ) (1 - 1-dose 75+ series) 2018 DTAP/TDAP/TD VACCINES (3 - T d or Tdap) 03/05/2022 03/05/2012, 02/03/2012 COVID-19 Vaccine (2023-2 5 season) 2024 08/10/2020, 07/13/2020 INFLUENZA VACCINE [...] years Discontinued Medical Devices Implanted Type Area Palm And Back Forger Device Identifier Shelf Expiration Date Model / Serial / Lot Cement Bone Biomet R 1x40 [id number] - [id number] Implanted:Qty: 1 on 01/05/2025 by Conner Degroot MD at [facility] Cement Right: Knee [employer] 04/22/2027 [id number] / / [id number] Cement Bone Biomet R 1x40 [id number] - [id number] Implanted:Qty: 1 on 01/05/2025 by Conner Degroot MD at [facility] Cement Right: Knee [employer] 05/22/2027 [id number] / / [id number] Cement Bone Biomet R 1x40 [id number] - [id number] Implanted:Qty: 1 on 01/05/2025 by Conner Degroot MD at [facility] Cement Right: Knee [employer] 05/22/2027 [id number] / / [id number] Patella Persona Poly 38mm [id number] - [id number] Implanted:Qty: 1 on 01/05/2025 by Conner Degroot MD at [facility] Knee Right: Knee [employer] 10/04/2029 [id number] / / [id number] Comp Tib Persona 5d Szg Rt 36-7726-996-02 - [id number] Implanted:Qty: 1 on 01/05/2025 by Conner Degroot MD at [facility] Knee Right: Knee [employer] [id number] 01/29/2034 [id number] / / [id number] Comp Fem Persona Cr Sz12 Rt 66-4874-734-02 - [id number] Implanted:Qty: 1 on 01/05/2025 by Conner Degroot MD at [facility] Knee Right: Knee [employer] [id number] 06/26/2034 [id number] / / [id number] Insert Tib Persona Vivacit-E 12 G-H 10mm Rt Cr 50-4511-540-10 - [id number] Implanted:Qty: 1 on 01/05/2025 by Conner Degroot MD at [facility] Knee Right: Knee [employer] [id number] 08/23/2029 [id number] / / [id number] Screw Persona 2.5x25mm [id number] - [id number] Implanted:Qty: 1 on 01/05/2025 by Conner Degroot MD at [facility] Screw Right: Knee [employer] 12/01/2034 [id number] / / [id number] Procedures Procedure Name Priority Date/Time Associated Diagnosis [...] VW RIGHT Routine 01/05/2025 1:17 PM CDT NC ANESTHESIA BLOCK PB PLACEHOLDER CHARGE Routine 01/05/2025 1:13 PM CDT POC GLUCOSE Routine 01/05/2025 1:06 PM CDT NC ANES INSERT ENDOTRACHEAL AIRWAY Routine 01/05/2025 10:23 AM CDT NC ARTHRP KNE CONDYLE&PLATU MEDIAL&LAT COMPARTMENTS 01/05/2025 9:40 AM CDT Primary osteoarthritis of right knee Case Notes [facility] CPTR-ASST SURGICAL NAVIGATION IMAGE-LESS 01/05/2025 9:40 AM [...] disease - PCI x 3 in 2011 Type 2 diabetes mellitus without complication, without long-term current use of insulin (CMS/HCC) Aneurysm of ascending aorta without rupture Dyslipidemia Primary hypertension HEMOGLOBIN A1C Routine 02/20/2024 10:10 AM CDT Coronary artery disease - PCI x 3 in 2011 Type 2 diabetes mellitus without complication, without [...] POC [facility] [address] Blood 01/20/2025 10:3 5 AM CDT us Jasvir Coffey MD POINT OF CARE TESTING Final Res ult [facility] [address] BAKER# [id number] [address] [place] [address] [place] [address] * (ABNORMAL) POC GLUCOSE (01/06/2025 7:59 AM CDT) Only the most recent of6 resultswithin the time period is included. [facility] GLUCOSE POC 151(H) 74 - 99 mg/dL 01/06/2025 7:59 AM CDT [facility] SPECIMEN SOURCE, GLUCOSE POC Whole Blood 01/06/2025 7:59 AM CDT [facility] Blood, whole 01/06/2025 7:59 AM CDT 01/06/2025 8:07 AM CDT us Conner Degroot MD POINT OF CARE TESTING Final Result [facility] CLIA# [id number] [address] [place] [address] * (ABNORMAL) CBC WITH DIFFERENTIAL (01/06/2025 4:55 AM CDT) Only the most recent of2 resultswithin the time period is included. WBC 12.4(H) 4.0 - 9.8 K/uL 01/06/2025 5:02 AM CDT [facility] [place] Comment:ANC = 9.77K/uL RBC 3.71(L) 4.50 - 5.40 M/uL 01/06/2025 5:02 AM CDT [facility] HEMOGLOBIN 12.3(L) 13.6 - 16.5 g/dL 01/06/2025 5:02 AM CDT [facility] HEMATOCRIT 36.5(L) 40.0 - 48.0 % 01/06/2025 5:02 AM CDT [facility] [place] MCV 98.4 82.0 - 99.0 fL 01/06/2025 5:02 AM CDT [facility] [place] MCH 33.2(H) 27.2 - 32.6 pg 01/06/2025 5:02 AM CDT [facility] MCHC 33.7 31.5 - 35.5 g/dL 01/06/2025 5:02 AM CDT [facility] RDW 12.3 11.5 - 14.5 % 01/06/2025 5:02 AM CDT [facility] RDW-STDEV 44.8 37.1 - 48.7 fL 01/06/2025 5:02 AM CDT [facility] [place] PLATELETS 186 140 - 350 K/uL 01/06/2025 5:02 AM CDT [facility] MPV 9.9 9.3 - 12.4 fL 01/06/2025 5:02 AM CDT [facility] NEUTROPHILS 79 % 01/06/2025 5:02 AM CDT [facility] LYMPHOCYTES 12 % 01/06/2025 5:02 AM CDT [facility] MONOCYTES 9 % 01/06/2025 5:02 AM CDT [facility] EOSINOPHILS 0 % 01/06/2025 5:02 AM CDT [facility] [address] [facility] BASOPHILS 0 % 01/06/2025 5:02 AM CDT [facility] IMMATURE GRANULOCYTES 0 % 01/06/2025 5:02 AM CDT [facility] [address] [facility] NEUTROPHIL ABSOLUTE 9.77(H) 1.90 - 7.00 K/uL 01/06/2025 5:02 AM CDT [facility] [address] [facility] LYMPHOCYTE ABSOLUTE 1.51 0.70 - 4.50 K/uL 01/06/2025 5:02 AM CDT [facility] MONOCYTE ABSOLUTE 1.09 0.10 - 1.30 K/uL 01/06/2025 5:02 AM CDT [facility] EOSINOPHIL ABSOLUTE 0.00 0.00 - 0.70 K/uL 01/06/2025 5:02 AM CDT [facility] [address] [facility] BASOPHILS ABSOLUTE 0.02 0.00 - 0.20 K/uL 01/06/2025 5:02 AM CDT [facility] IMMATURE GRANULOCYTES ABSOLUTE 0.03 0.00 - 0.03 K/uL 01/06/2025 5:02 AM T [facility] Blood Venipuncture / Unknown 01/06/2025 4:55 AM CDT 01/06/2025 4:58 AM CDT Conner Degroot MD HEMATOLOGY ORDERABLES Final Result [facility] [address] [facility] CLIA# [id number] [address] [place] [address] * (ABNORMAL) BASIC METABOLIC PANEL (01/06/2025 4:55 AM CDT) SODIUM 137 136 - 145 mmol/L 01/06/2025 5:21 AM CDT [facility] POTASSIUM 4.1 3.5 - 4.9 mmol/L 01/06/2025 5:21 AM CDT [facility] CHLORIDE 106 98 - 107 mmol/L 01/06/2025 5:21 AM [facility] CO2 20(L) 22 - 29 mmol/L 01/06/2025 5:21 AM [facility] CALCIUM 8.5(L) 8.6 - 10.2 mg/dL 01/06/2025 5:21 AM T [facility] BUN 18 6 - 20 mg/dL 01/06/2025 5:21 AM [facility] CREATININE 1.08 0.67 - 1.17 mg/dL 01/06/2025 5:21 AM [facility] Comment:The GFR result is no t clinically significant on patients <18 or >70 years of age. GLUCOSE 182(H) 74 - 99 mg/dL 01/06/2025 5:21 AM [facility] GFR >60 mL/min/1.7 3 sq meter 01/06/2025 5:21 AM [facility] Comment:eGFR calculated with 2020 CKD-EPI equation. Vegetarian diet, extremely high or low muscle mass, and may affect results. Cystatin C with Glomerular Filtration Rate is a suitable alternative for these patients. ANION GAP 11 8 - 16 mmol/L 01/06/2025 5:21 AM [facility] Blood Venipuncture / Unknown 01/06/2025 4:55 AM CDT 01/06/2025 4:58 AM CDT Conner Degroot MD CHEMISTRY ORDERABLES Final R esult [facility] CLIA# [id number] [address] [place] [address] * XR KNEE 1 OR 2 VW [...] signs of failure. DICTATION LOCATION: Location 4 us Cnoner Degroot MD DIAGNOSTIC IMAGING ORDERABLE S Final Result * NC ANESTHESIA BLOCK PB PLACEHOLDER CHARGE (01/05/2025 1:13 [...] Canal Block Laterality: Right Injection technique: Single-shot [place] Identification: ultrasound guided Skin Infiltration: Lidocaine 2% [...] to adequately control pain. All questions answered. us Cam Marie MD PROCEDURE/MINOR SURGICAL ORD ERABLES Final Result * NC ANES INSERT ENDOTRACHEAL AIRWAY (01/05/2025 10:23 AM CDT) Narrative Tresa Knight CRNA - 01/05/2025 10:23 AM CDT Tresa Knight CRNA 01/05/2025 11:01 AM Airway Date/Time: 01/05/2025 10:23 AM Location: OR Plan: routine intubation Patient Identity Confirmed by: Verbally with patient and armband Airway: not difficult Staffing Performed: Student NA/AA Authorized by: Cam Marie MD Performed by: Germania Thomas (Student), RN Career And Transition Teacher: Tresa Knight CRNA Indications and Patient Condition: [...] ABO GROUP A 01/05/2025 9:33 AM CDT [facility] [place] RH (D) TYPE Negative 01/05/2025 9:33 AM CDT [facility] [place] Blood Venipuncture / Unknown 01/05/2025 8:13 AM CDT 01/05/2025 8:49 AM CDT Cheyenne Thomas MD BLOOD BANK ORDERABLES Final Re sult [facility] [address] [facility] CLIA# [id number] [address] [place] [address], * PROTIME-INR (12/13/2024 11:35 AM CDT) PROTIME 13.3 12.3 - 14.9 Seconds 12/13/2024 11:58 AM CDT [facility] INR 1.0 0.9 - 1.1 12/13/2024 11:58 AM CDT [facility] [address] [facility] Blood Venipuncture / Unknown 12/13/2024 11:35 AM CDT 12/13/2024 11:35 AM CDT Narrative [facility] [place] - 12/13/2024 11:58 AM CDT INR Therapeutic Range: Adult: 2.0 - 3.0 for pulmonary embolism or prophylaxis against venous thrombosis or systemic embolization. 2.0 - 3.0 for patients with tissue heart valves. 2.5 - 3.5 for patients with mechanical heart valves or post IA. Pediatric (12 years and under): 1.5 - 3.0 Although the target range in children is not well established, INR values of 1.5 - 3.0 are recommended for most patients. Higher values have been used in children with prosthetic cardiac valves and hereditary clotting disorders. Barton (<3 days) therapeutic ranges have not been established. Conner Degroot MD HEMATOLOGY ORDERABLES Final Result [facility] [place] CLIA# [id number] [address] [place] [address] * TYPE AND SCREEN (12/13/2024 11:35 AM CDT) Pathologist [facility] ABO GROUP A 12/13/2024 1:14 PM CDT [facility] [place] RH (D) TYPE Negative 12/13/2024 1:14 PM CDT [facility] [place] ANTIBODY SCREEN Negative 12/13/2024 1:14 PM CDT [facility] [place] Blood Venipuncture / Unknown 12/13/2024 11:35 AM CDT 12/13/2024 11:35 AM CDT Conner Degroot MD BLOOD BANK ORDERABLES Edited Result - Final [facility] CLIA# [id number] [address] [place] [address], * (ABNORMAL) COMPREHENSIVE METABOLIC PANEL (12/13/2024 11:35 AM CDT) SODIUM 137 136 - 145 mmol/L 12/13/2024 12:07 PM CDT [facility] [place] POTASSIUM 3.8 3.5 - 4.9 mmol/L 12/13/2024 12:07 PM CDT [facility] [place] CHLORIDE 105 98 - 107 mmol/L 12/13/2024 12:07 PM CDT [facility] [place] CO2 19(L) 22 - 29 mmol/L 12/13/2024 12:07 PM CDT [facility] [place] CALCIUM 9.4 8.6 - 10.2 mg/dL 12/13/2024 12:07 PM CDT [facility] BUN 13 6 - 20 mg/dL 12/13/2024 12:07 PM [facility] CREATININE 1.10 0.67 - 1.17 mg/dL 12/13/2024 12:07 PM [facility] Comment:The GFR result is no t clinically significant on patients <18 or >70 years of age. GLUCOSE 213(H) 74 - 99 mg/dL 12/13/2024 12:07 PM [facility] TOTAL PROTEIN 7.0 6.0 - 8.3 g/dL 12/13/2024 12:07 PM [facility] ALBUMIN 4.0 3.4 - 4.8 g/dL 12/13/2024 12:07 PM [facility] BILIRUBIN TOTAL 0.8 0.0 - 1.0 mg/dL 12/13/2024 12:07 PM [facility] ALKALINE PHOSPHATASE 147(H) 40 - 129 U/L 12/13/2024 12:07 PM [facility] AST 27 12 - 38 U/L 12/13/2024 12:07 PM [facility] ALT 25 <41 U/L 12/13/2024 12:07 PM [facility] GFR >60 mL/min/1.7 3 sq meter 12/13/2024 12:07 PM [facility] Comment:eGFR calculated with 2020 CKD-EPI equation. Vegetarian diet, extremely high or low muscle mass, and may affect results. Cystatin C with Glomerular Filtration Rate is a suitable alternative for these patients. ANION GAP 13 8 - 16 mmol/L 12/13/2024 12:07 PM [facility] Blood Venipuncture / Unknown 12/13/2024 11:35 AM CDT 12/13/2024 11:35 AM T us Conner Degroot MD CHEMISTRY ORDERABLES Final R esult [facility] CLIA# [id number] [address] [place] [address] * XR CHEST PA AND LATERAL 2 [...] stable. IMPRESSION: Clear lungs. DICTATION LOCATION: 1 us Conner Degroot MD DIAGNOSTIC IMAGING ORDERABLE S Final Result * EKG 12-LEAD (12/13/2024 10:13 AM CDT) 12/13/2024 10:1 3 AM CDT Narrative INTERFACE SYSTEM - 12/13/2024 2:23 PM CDT [address] [address] Test Date: 2024-12-13 Pat Name: LORETO SEO Department: 12 Room: Gender: Male Psychodramatist: : 1945 Requested By: CONNER Serra Order Number: [id number] Reading MD: Wai Day Measurements Intervals Dexter Rate: 81 P: 57 NC: 308 QRS: 99 QRSD: 101 T: 7 QT: 359 QTc: 419 Interpretive Statements SINUS RHYTHM WITH FIRST DEGREE AV BLOCK BORDERLINE RIGHT AXIS DEVIATION NONSPECIFIC T-WAVE ABNORMALITY Electronically Signed On 12-13-2024 14:23:27 CDT by Wai Day Procedure Note Wai Day MD - 12/13/[address] [address] Test Date: 2024-12-13 Pat Name: LORETO SEO Department: 12 Room: Gender: Male Psychodramatist: : 1945 Requested By: CONNER Serra Order Number: [id number] Reading MD: Wai Day Measurements Intervals Dexter Rate: 81 P: 57 NC: 308 QRS: 99 QRSD: 101 T: 7 [...] A1C 7.0(H) <5.7 % of total Hgb [facility] Melchor Comment: For someone without known diabetes, [...] children. ESTIMATED AVERAGE GLUCOSE (MG/DL) 154 mg/dL [facility] ESTIMATED AVERAGE GLUCOSE (MMOL/L) 8.5 mmol/L [facility] Comment: This test was performed on the Sondra aundrea c503 platform. Effective 09/08/23, a change in test platforms from the Parks [employer] Die Maker to the Sondra aundrea c503 may have shifted HbA1c results compared to historical results. Based on laboratory validation testing conducted at [employer], the Sondra platform relative to the Parks [...] recommended. FASTING:YES FASTING: YES Test Performed at: [facility] [place] [address] [address] [place] [address] [facility] [place] Blood 02/20/2024 10:1 0 AM CDT 02/20/2024 10:12 AM CDT us Jasvir Coffey MD CHEMISTRY ORDERABLES Final Resu lt [facility] [phone] [facility] [address] [address] [place] [address] * (ABNORMAL) LIPID PANEL (02/20/2024 10:10 AM CDT) CHOLESTEROL 117 <200 mg/dL [facility] HDL 22(L) > OR = 40 mg/dL [facility] TRIGLYCERIDE 145 <150 mg/dL [facility] LDL CALCULATED 72 mg/dL (calc) Oh [facility]ard[facility]ee Melchor Comment: Reference range: <100 Desirable range <100 mg/dL for primary prevention; <70 mg/dL for patients with CHD or diabetic patients with > or = 2 CHD risk factors. LDL-C is now calculated using the lEizabeth calculation, which is a validated novel method providing better accuracy than the Friedewald equation in the estimation of LDL-C. Tim GOMEZ et al. DARIO. 2013;310(19): 8521-1871 (http://education.Schoolfy.Purs[employer] Vascular/faq/XXW877) CHOL/HDL RATIO 5.3(H) <5.0 (calc) Oh [facility]ard[facility] NON-HDL CHOLESTEROL 95 <130 mg/dL (calc) [facility] Comment: For patients with diabetes plus 1 major ASCVD risk factor, treating to a non-HDL-C goal of <100 mg/dL (LDL-C of <70 mg/dL) is considered a therapeutic option. Test Performed at: [facility] [address] [address] [address] [facility] [place] Blood 02/20/2024 10:1 0 AM CDT 02/20/2024 10:12 AM CDT Jasvir Coffey MD CHEMISTRY ORDERABLES Final Resu lt [facility] [phone] [facility] [address] [place] [address] from Last 3 Months or Most Recently Relevant to Health Maintenance Insurance MEDICARE PART A AND B [employer] OPEN CHOICE PPO RX [facility] Medicare Part D RX AET[employer] Commercial * Guarantor: [employer] G (C) Account Type Relation to Patient Date of Phone Billing Address Corporate Other DEFAULT ADDRESS [address] [employer] Advance Directives For more information, please contact: [phone] * Full Code (Latest Code Status on File) Date Activated Date Inactivated Comments 01/05/2025 2:31 PM 01/06/2025 3:20 PM
--- OUTSIDE RECORDS SUMMARY | 2025-01-28 16:41 | XMS_ITS | Continuity of Care Document ---
Author Organization [facility] Address [address] [place] [address] Phone Care Team Providers Care Geometry Tutor Name Role Phone Isa Veliz PT Unavailable Unavailabl e Procedures Procedure Date Doc neg elder mal no plan PT Evaluation Moderate Complexity Therapeutic Activities Neuromuscular Re-Ed Therapeutic Exercise Advance Directives Directive Yes / No Effective Date File Name No Information Encounters Encounter Description Practice Location Reason(s) For Visit Diagnoses Date Provider Providers Copied on Encounter [facility], [address] [place] [address] [address], [place], [place], [id number], tel:[phone] [place] No Information Jose Alfredo Moss. . Referring Provider: Yayo Degroot, [address] [place] [address], [address]. tel:[phone] Family History Family Member Type Diagnosis Age At Onset No Information Payers Payer name Insurance type Covered libertarian ID Authoriza tion(s) Medicare [place] MB [id number] Aetna CI [id number] Social History Type Description Quantity Date Captured Comments Alcohol Use Details Unknown Caffeine Use Details Unknown Tobacco Use Status Current non-smoker Smoking Status Never smoker Non-Smoking Tobacco Use Details : No Details Available : No Details Available Sex Male Chief Complaint And Reason For Visit No Information Reason For Referral Reason For Referral No Information Plan Of Treatment Date Type Action Status Appointment Lanre Rutledge BOOKED Appointment Lanre Rutledge BOOKED Appointment Lanre Rutledge BOOKED Appointment Lanre Rutledge BOOKED Appointment Lanre Rutledge BOOKED Appointment Lanre Rutledge BOOKED History Of Present Illness Encounter Date Complaint History Of Prese nt Illness No Information Functional Status Date Functional Assessmen t No Information Instructions Date Instruction Additional Infor mation No Information Assessments Type Assessment Date No Information Patient Care Teams Name Effective Dates (start - stop) Status Members No Information
--- OUTSIDE RECORDS SUMMARY | 2025-01-28 16:41 | XMS_ITS | Encounter Summary ---
Author Organization [facility] Address [address] [place] [address] Care Team Providers Care Industrial Electrical Engineer Name Role Phone Unavailable Primary Care Provider Unavailabl e Reason for Visit * Reason Onset Date Comments Information 01/21/2025 Encounter Details Date Type Department Care Team (Late st Contact Info) Description 01/21/2025 Telephone [facility] Heart and Vascular - [address] [place] [address] Jasvir Coffey MD [address] [place] [address] Information Social History Tobacco Use [...] encounter Miscellaneous Notes * Telephone Encounter - Jolanta Hearn - 01/27/2025 1:33 PM CDT Pt returned call from NAOMIE Estevez. States he is coming to [place] this afternoon for another appointment asking to be seen today jeffry [place] in fact [place] Per venessa Cleary to add on at 3pm today. Pt states will be here as close to 3 as possible, might be a few min late. * Telephone Encounter - Zenaida Brock RN - 01/24/2025 1:46 PM CDT Lm for patient to call back. Needs fu scheduled. * Telephone Encounter - Jolanta Hearn - 01/21/2025 4:04 PM CDT JAYJAY De Leon from [facility] left message to nurse line requesting a call back to discuss medications on this pt to plan for discharge. Please call her at [phone] * Telephone Encounter - Reyes Lomax LPN - 01/21/2025 3:53 PM CDT PA from [facility] called. She believes it is a blood sugar issue and will contact PCP for follow up. * Telephone Encounter - Yulissa Rodriguez LPN [...] take to closest ER They are in [place] and the closest hospital is [facility] She voiced she will take pt now documented in this encounter Plan of Treatment Upcoming Encounters Date Type Department Care Team (Late st Contact Info) Description 03/03/2025 10:30 AM CDT Office Visit [facility] Orthopedic Surgery - [address] [place] [phone] Yayo Degroot MD [address] [place] [address] 03/03/2025 11:45 AM CDT Office Visit [facility] Heart and Vascular - [address] [place] [phone] Jasvir Coffey MD [address] [place] [phone] 04/28/2025 1:45 PM 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
--- OUTSIDE RECORDS SUMMARY | 2025-01-28 16:42 | XMS_ITS | Encounter Summary ---
Author Organization [facility] Address [address] [place] [address] Care Team Providers Care Database Admin Name Role Phone Unavailable Primary Care Provider Unavailabl e Reason for Visit * Reason Comments Hospital Follow Up Elevated glucose - s haky - echo done WNL per patient - Encounter Details Date Type Department Care Team (Late st Contact Info) Description 01/27/2025 3:00 PM CDT Office Visit [facility] Heart and Vascular - [address] [place] [address] Jasvir Coffey MD [address] [place] [address] Coronary artery disease - PCI x 3 in 2011 (Primary Dx); Type 2 diabetes mellitus without complication, without long-term current use of insulin ([facility]); Aneurysm of ascending aorta without rupture; Dyslipidemia; Hypotension, unspecified hypotension type Social History Tobacco Use Types Packs/Day Years [...] Pulse 64 01/27/2025 2:47 PM CDT Temperature - - Respiratory Rate 18 01/27/2025 2:47 PM CDT Oxygen Saturation - - Inhaled Oxygen Concentration - - Weight 97.1 kg (214 lb) 01/27/2025 2:47 PM CDT Height 182.9 cm (6') 01/27/2025 2:47 PM CDT Body Mass Index 29.02 01/27/2025 2:47 PM CDT documented in this encounter Progress Notes * Jasvir Coffey MD - 01/27/2025 2:57 PM CDT [facility] Heart and Vascular Progress Note Assessment: Chief Complaint Patient presents with Hospital Follow Up Elevated glucose - shaky - echo done WNL per patient - Cardiovascular Problem List: ICD-10-CM ICD-9-CM 1. Coronary artery disease - PCI x 3 in 2011 I25.10 414.01 2. Type 2 diabetes mellitus without complication, without long-term current use of insulin ([facility]) E11.9 250.00 3. Aneurysm of ascending aorta without rupture I71.21 441.2 4. Dyslipidemia E78.5 272.4 5. Hypotension, unspecified hypotension type I95.9 458.9 Plan: BP is dropping in heat and with standing and low in office every check. BS 170 - 300's. Improve glycemic control Osmotic diuresis and dysautonomia contributing to orthostasis and low BP. Decrease metoprolol to 25 daily If still having orthostasis and hypotension then add midodrine 5 TID Follow up in April. Subjective: Mr. Rutledge returns for follow up on his multiple medical problems. No chest pain or SOB. Having lowBP. This medical record reflects the history of present illness as obtained by myself in discussion with the patient. I have reviewed the medical list as documented in the EMR Review of Systems: Cardiovascular: as per the HPI. Constitutional: negative for fevers, chills, sweats and fatigue. Musculoskeletal:negative for myalgias and muscle weakness. Respiratory: negative for cough, dyspnea on exertion or wheezing. The remainder of the review of systems is negative or as noted in the HPI. Objective: Physical Exam: BP 108/60 Pulse 64 Resp 18 Ht 6' (1.829 m) Wt 97.1 kg (214 lb) BMI 29.02 kg/m?? General appearance: alert, in no distress Eyes: Sclera clear Nose/Mouth: Moist mucosa Neck: no carotid bruit and no JVD. Lungs: clear to auscultation bilaterally, normal respiratory effort Heart: normal rate, regular rhythm, normal S1, S2, no murmurs Abdomen: Soft, NT Extremities: No clubbing, no edema Pulses: 2+ and symmetric Psychiatric: mood appropriate. Data Review: Chemistry: Lab Results Component Value Date NA 137 01/06/2025 K 4.1 01/06/2025 CL 106 01/06/2025 CO2 20 (L) 01/06/2025 BUN 18 01/06/2025 CREAT 1.08 01/06/2025 CA 8.5 (L) 01/06/2025 CBC: Lab Results Component Value Date WBC 12.4 (H) 01/06/2025 RBC 3.71 (L) 01/06/2025 HGB 12.3 (L) 01/06/2025 HCT 36.5 (L) 01/06/2025 PLT 186 01/06/2025 Lab Results Component Value Date CHOLTOT 117 02/20/2024 HDL 22 (L) 02/20/2024 LDLCALC 72 02/20/2024 TRIGLYCERIDE 145 02/20/2024 The patient was instructed to call with any change in condition or symptoms. I would like to thank you for allowing me to participate in this patient's care, if you have any questions regarding their visit today please do not hesitate to contact me at any time. documented in this encounter Plan of Treatment Upcoming Encounters Date Type Department Care Team (Late st Contact Info) Description 03/03/2025 10:30 AM CDT Office Visit [facility] Orthopedic Surgery - [address] [place] [address] Yayo Degroot MD [address] [place] [address] 03/03/2025 11:45 AM CDT Office Visit [facility] Heart and Vascular - [address] [place] [phone] Jasvir Coffey MD [address] [place] [phone] 04/28/2025 1:45 PM SAMPLE STITCHER Office Visit [facility] Heart and Vascular - [address] [place] [address] Jasvir Coffey MD [address] [place] [address] documented as of this encounter Visit Diagnoses Diagnosis Coronary artery disease - PCI x 3 in 2012- Primary Type 2 diabetes mellitus without complication, without long-term current use of insulin ([facility]) Aneurysm of ascending aorta without rupture Dyslipidemia Other and unspecified hyperlipidemia Hypotension, unspecified hypotension type documented in this encounter
--- OUTSIDE RECORDS SUMMARY | 2025-01-28 16:42 | XMS_ITS | Continuity of Care Document ---
Author Name [facility] Organization [facility] Care Team Providers Care Joint Filler Name Role Phone [facility] Unavailable Unavailable Problems Combined list of problems from Department of Defense and [facility] Affairs facilities. It does not include entries that were removed or entered in error. Problem Status Onset Date Problem Type Date of Resolution Comments Source Abdominal aortic aneurysm Active [facility] Aneurysm of thoracic aorta Active Condition [facility] Benign essential hypertension Active Condition [facility] Benign Prostatic Hypertrophy without Outflow Obstruction ([facility] [id number]) Active Condition [facility] CAD - Coronary Artery Disease ([facility] [id number]) Active Condition [facility] Callous character Active [facility] Colonic fistula Active Condition [facility] Coronary arteriosclerosis Active Condition [facility] Coronary artery disease Active [facility] Dementia ([facility] [id number]) Active Condition [facility] Diabetes mellitus Active Condition [facility] Diabetes Mellitus Type 2 (SCT [id number]) Active Condition [facility] Diabetic neuropathy Active Condition [facility] Diabetic neuropathy with neurologic complication Active Condition [facility] Dyslipidemia Active Condition [facility] Gastroesophageal reflux disease Active [facility] Gastroesophageal Reflux Disease Active Condition [facility] GERD - Gastro-Esophageal Reflux Disease (SCT [id number]) Active Condition [facility] Hearing loss Active Condition [facility] History of left hip replacement Active Condition [facility] HTN - Hypertension (SCT [id number]) Active Condition [facility] Hyperlipidemia Active Condition [facility] Hyperlipidemia ([facility] [id number]) Active Condition [facility] Hypertensive disorder Active Condition [facility] Knee pain Active Condition [facility] Loose stool Active Condition [facility] OA - Osteoarthritis ([facility] [id number]) Active Condition [facility] Samuels [facility] Obesity Active Condition [facility] Osteoarthritis Active Condition [facility] Active Condition [facility] Stented artery Active Condition [facility] Valdez [facility] Vitamin D deficiency Active Condition A SHANIA Samuels [facility] Diagnosis: ICD-10-CM Z98.890 Other specified postprocedural states Active Diagnosis [facility] Diagnosis: ICD-10-CM E11.40 Type 2 diabetes mellitus with diabetic neuropathy, unsp Active Diagnosis [facility] Diagnosis: ICD-10-CM Z72.3 Lack of physical exercise Active Diagnosis [facility] Diagnosis: ICD-10-CM Z46.1 Encounter for fitting and adjustment of hearing aid Active Diagnosis [facility] Diagnosis: ICD-10-CM I25.83 Coronary atherosclerosis due to lipid rich plaque Active Diagnosis [facility] Diagnosis: ICD-10-CM Z76.0 Encounter for issue of repeat prescription Active Diagnosis [facility] Perez [facility] Diagnosis: ICD-10-CM 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 Diagnosis [facility] Diagnosis: ICD-10-CM Z71.9 Counseling, unspecified Active Diagnosis [facility] Diagnosis: ICD-10-CM K81.1 Chronic cholecystitis Active Diagnosis [facility] Admit Reason: CHOLECYSITIS Active Diagnosis [facility] Diagnosis: ICD-10-CM Z01.818 Encounter for other preprocedural examination Active Diagnosis [facility] Diagnosis: ICD-10-CM K80.20 Calculus of gallbladder w/o cholecystitis w/o obstruction Active Diagnosis [facility] Diagnosis: ICD-10-CM R93.2 Abnormal findings on dx imaging of liver and biliary tract Active Diagnosis [facility] Diagnosis: ICD-10-CM F41.1 Generalized anxiety disorder Active Diagnosis [facility] Diagnosis: ICD-10-CM E11.9 Type 2 diabetes mellitus without complications Active Diagnosis [facility] Diagnosis: ICD-10-CM K82.9 Disease of gallbladder, unspecified Active Diagnosis [facility] Diagnosis: ICD-10-CM R10.10 Upper abdominal pain, unspecified Active Diagnosis [facility] Diagnosis: ICD-10-CM E27.9 Disorder of adrenal gland, unspecified Active Diagnosis [facility] Diagnosis: ICD-10-CM M25.569 Pain in unspecified knee Active Diagnosis [facility] Diagnosis: ICD-10-CM L82.0 Inflamed seborrheic keratosis Active Diagnosis [facility] Diagnosis: ICD-10-CM R26.81 Unsteadiness on feet Active Diagnosis [facility] Medications Combined list of outpatient medications [...] OPHEN (APAP) FROM ALL MEDS. ORAL 06/10/2024 [id number] CARMELA MORRISON 2023 100 [facility] AMLODIPINE BESYLATE 10MG TAB TAKE ONE-HALF TABLET BY MOUTH EVERY DAY ORAL ACTIVE SANDEE REYNOLDS 2018 [facility] ASPIRIN 81MG TAB,EC TAKE ONE TABLET BY MOUTH ONCE A DAY TAKE WITH FOOD. ORAL ACTIVE 03/27/2025 [id number] 5 SAMPLES,R OBERTA CYNDI 2023 120 [facility] ASPIRIN 81MG TAB,EC TAKE ONE TABLET BY MOUTH ONCE A DAY TAKE WITH FOOD. ORAL DISCONT INUED 02/11/2024 [id number] 4 SAMPLES,R OBERTA CYNDI 2022 120 [facility] [...] FOR HIGH CHOLESTE ROL ORAL ACTIVE 03/27/2025 [id number] 5 SAMPLES,R OBERTA CYNDI 2023 90 [facility] ATORVASTATI N CA 80MG TAB TAKE ONE TABLET BY MOUTH EVERY EVENING FOR HIGH CHOLESTE ROL ORAL DISCONT INUED 02/11/2024 [id number] SAMPLES,R OBERTA CYNDI 2022 90 [facility] BENZONATATE 100MG CAP TAKE ONE CAPSULE BY MOUTH THREE TIMES A DAY NEEDED FOR COUGH ORAL 02/11/2024 [id number] 4 SAMPLES,R OBERTA CYNDI 2022 90 [facility] [...] ABOUT THESE INSTRUCT IONS. MAIL ORAL 02/27/2024 [id number] 4 [facility] 2 [facility] BISACODYL 5MG TAB,EC TAKE TWO TABLETS BY MOUTH ONE TIME TAKE BISACODY L TABLETS AT 4PM ON AFTERNOO N PRIOR TO TEST. CALL WITH ANY QUESTION S ABOUT THESE INSTRUCT IONS. MAIL TAKE BISACODY L TABLETS AT 4PM ON AFTERNOO N PRIOR TO TEST. CALL WITH ANY QUESTION S ABOUT THESE INSTRUCT IONS. MAIL ORAL 12/21/2023 [id number] 4 GUANACODevante ATTOFELIAW 2023 2 [facility] BUSPIRONE HCL 10MG TAB TAKE ONE-HALF TABLET BY MOUTH ONCE A DAY DO NOT TAKE WITH GRAPEFRU IT JUICE. ORAL ACTIVE 02/25/2025 [id number] MONICA TURNERA N 2023 45 [facility] BUSPIRONE HCL 10MG TAB TAKE ONE-HALF TABLET BY MOUTH ONCE A DAY FOR ANXIETY DO NOT TAKE WITH GRAPEFRU IT JUICE. ORAL DISCONT INUED 11/20/2024 [id number] CLAY RODRIGUEZLACHMA N 2023 45 [facility] CARBOXYMETH YLCELLULOSE NA 0.5% SOLN,OPH INSTILL 1 DROP IN BOTH EYES FOUR TIMES A DAY NEEDED FOR DRY EYE(S) OPHTHA LMIC ACTIVE 02/24/2025 [id number] MICHAEL PRINGLE 2023 30 [facility] CARBOXYMETH YLCELLULOSE NA 0.5% SOLN,OPH INSTILL 1 DROP IN BOTH EYES FOUR TIMES A DAY NEEDED FOR DRY EYE(S) OPHTHA LMIC DISCONT INUED 02/24/2025 [id number] 4 MICHAEL PRINGLERICIA 2023 45 [facility] CETIRIZINE HCL 10MG TAB TAKE ONE TABLET BY MOUTH ONCE A DAY NEEDED FOR ALLERGY SYMPTOMS ORAL ACTIVE 09/23/2025 [id number] 5 SAMPLES,R OBERTA CYNDI 2024 90 [facility] CETIRIZINE HCL 10MG TAB TAKE ONE TABLET BY MOUTH ONCE A DAY NEEDED FOR ALLERGY SYMPTOMS ORAL DISCONT INUED 09/24/2024 [id number] 5 SAMPLES,R OBERTA CYNDI 2023 90 [facility] CHOLECALCIF MIGUEL 50MCG (2,000UNIT) TAB TAKE ONE TABLET BY MOUTH ONCE A DAY FOR VITAMIN D DEFICIEN CY ORAL SUSPEND ED 09/23/2025 [id number] 5 SAMPLES,R OBERTA CYNDI 2024 100 [facility] CHOLECALCIF MIGUEL 50MCG (2,000UNIT) TAB TAKE ONE TABLET BY MOUTH ONCE A DAY FOR VITAMIN D DEFICIEN CY ORAL DISCONT INUED 09/24/2024 [id number] 4 SAMPLES,R OBERTA CYNDI 2023 100 [facility] CHOLESTYRAM INE 4GM/5GM (LIGHT) PWDR,PKT MIX AND DRINK 1 PACKET BY MOUTH TWICE DAILY NEEDED FOR CHRONIC DIARRHEA MIX WITH WATER DIRECTED . TAKE OTHER MEDICATI ONS 1 HOUR BEFORE OR 6 HOURS AFTER ADMINIST RATION. ORAL ACTIVE 01/27/2026 [id number] 5 SAMPLES,R OBERTA CYNDI 2024 120 [facility] CHOLESTYRAM INE 4GM/5GM (LIGHT) PWDR,PKT MIX AND DRINK 1 PACKET BY MOUTH TWICE DAILY NEEDED FOR CHRONIC DIARRHEA MIX WITH WATER DIRECTED . TAKE OTHER MEDICATI ONS 1 HOUR BEFORE OR 6 HOURS AFTER ADMINIST RATION. ORAL DISCONT INUED 11/12/2025 [id number] 5 SAMPLES,R OBERTA CYNDI 2024 84 [facility] CLOPIDOGREL BISULFATE 75MG TAB TAKE ONE TABLET BY MOUTH ONCE A DAY FOR ACUTE CORONARY SYNDROME ORAL ACTIVE 03/27/2025 [id number] 5 SAMPLES,R OBERTA CYNDI 2023 90 [facility] CLOPIDOGREL BISULFATE 75MG TAB TAKE ONE TABLET BY MOUTH ONCE A DAY FOR ACUTE CORONARY SYNDROME ORAL DISCONT INUED 02/11/2024 [id number] SAMPLES,R OBERTA CYNDI 2022 90 [facility] CLOPIDOGREL BISULFATE 75MG TAB TAKE ONE TABLET BY MOUTH EVERY DAY ORAL ACTIVE SANDEE REYNOLDS 2013 [facility] CYANOCOBALA MIN 1000MCG TAB TAKE ONE TABLET BY MOUTH ONCE A DAY FOR VITAMIN B12 SUPPLEME NTATION ORAL ACTIVE 09/23/2025 [id number] 5 SAMPLES,R OBERTA CYNDI 2024 100 [facility] CYANOCOBALA MIN 1000MCG TAB TAKE ONE TABLET BY MOUTH ONCE A DAY FOR VITAMIN B12 SUPPLEME NTATION ORAL DISCONT INUED 09/24/2024 [id number] 5 SAMPLES,R OBERTA CYNDI 2023 100 [facility] CYCLOBENZAP RINE HCL 10MG TAB TAKE ONE TABLET BY MOUTH AT BEDTIME NEEDED FOR MUSCLE SPASM MAY CAUSE DROWSINE SS. DO NOT DRINK ALCOHOL WHILE TAKING THIS MEDICATI ON. ORAL ACTIVE 07/03/2025 [id number] 5 SAMPLES,R OBERTA CYNDI 2024 90 [facility] CYCLOBENZAP RINE HCL 10MG TAB TAKE ONE TABLET BY MOUTH AT BEDTIME NEEDED FOR MUSCLE SPASM MAY CAUSE DROWSINE SS. DO NOT DRINK ALCOHOL WHILE TAKING THIS MEDICATI ON. ORAL DISCONT INUED 09/24/2024 [id number] SAMPLES,R OBERTA CYNDI 2023 90 [facility] [...] ATTACHED INSIDE BOX) TOPICA L ACTIVE 03/27/2025 [id number] SAMPLES,R OBERTA CYNDI 2023 100 [facility] [...] INSIDE BOX) TOPICA L DISCONT INUED 02/11/2024 [id number] SAMPLES,R OBERTA CYNDI 2022 100 [facility] DONEPEZIL HCL 10MG TAB TAKE ONE TABLET BY MOUTH AT BEDTIME FOR ALZHEIME R DISEASE (JUST BEFORE BEDTIME) ORAL ACTIVE 03/27/2025 [id number] 5 SAMPLES,R OBERTA CYNDI 2023 90 [facility] DONEPEZIL HCL 10MG TAB TAKE ONE TABLET BY MOUTH AT BEDTIME FOR ALZHEIME R DISEASE (JUST BEFORE BEDTIME) ORAL DISCONT INUED 02/11/2024 [id number] SAMPLES,R OBERTA CYNDI 2022 90 [facility] DONEPEZIL HCL 10MG TAB TAKE ONE-HALF TABLET BY MOUTH AT BEDTIME ORAL ACTIVE SANDEE REYNOLDS 2020 [facility] EMPAGLIFLOZ IN 10MG TAB TAKE ONE TABLET BY MOUTH EVERY DAY ORAL ACTIVE SANDEE REYNOLDS 2018 [facility] EMPAGLIFLOZ IN 25MG TAB TAKE ONE-HALF TABLET BY MOUTH ONCE A DAY ORAL ACTIVE 03/27/2025 [id number] 5 SAMPLES,R OBERTA CYNDI 2023 45 [facility] EMPAGLIFLOZ IN 25MG TAB TAKE ONE-HALF TABLET BY MOUTH ONCE A DAY ORAL DISCONT INUED 02/11/2024 [id number] 4 SAMPLES,R OBERTA CYNDI 2022 45 [facility] GABAPENTIN 100MG CAP TAKE ONE CAPSULE BY MOUTH TWICE A DAY AND TAKE THREE CAPSULES AT BEDTIME FOR NERVE PAIN ORAL 02/11/2024 [id number] 4 SAMPLES,R OBERTA CYNDI 2022 450 [facility] GABAPENTIN 100MG CAP TAKE 1 CAPSULE BY MOUTH EVERY DAY ORAL ACTIVE SANDEE REYNOLDS 2020 [facility] IRBESARTAN 150MG TAB TAKE ONE TABLET BY MOUTH ONCE A DAY FOR HIGH BLOOD PRESSURE NOTE: DOSE DECREASE ORAL DISCONT INUED (EDIT) 03/17/2025 [id number] SAMPLES,R OBERTA CYNDI 2023 90 [facility] IRBESARTAN 300MG TAB TAKE ONE TABLET BY MOUTH ONCE A DAY FOR HIGH BLOOD PRESSURE ORAL 02/11/2024 [id number] SAMPLES,R OBERTA CYNDI 2022 90 [facility] IRBESARTAN 300MG TAB TAKE ONE TABLET BY MOUTH EVERY DAY ORAL ACTIVE SANDEE REYNOLDS 2013 [facility] IRBESARTAN 75MG TAB TAKE ONE TABLET BY MOUTH ONCE A DAY NOTE: DOSE DECREASE ORAL ACTIVE 03/27/2025 [id number] 5 SAMPLES,R OBERTA CYNDI 2023 90 [facility] ISOSORBIDE MONONITRATE 30MG TAB,SA TAKE ONE TABLET BY MOUTH ONCE A DAY FOR CHEST PAIN TAKE ON EMPTY STOMACH. SWALLOW WHOLE. DO NOT CRUSH OR CHEW. ORAL ACTIVE 09/23/2025 [id number] 5 SAMPLES,R OBERTA CYNDI 2024 90 [facility] ISOSORBIDE MONONITRATE 30MG TAB,SA TAKE ONE TABLET BY MOUTH ONCE A DAY FOR CHEST PAIN TAKE ON EMPTY STOMACH. SWALLOW WHOLE. DO NOT CRUSH OR CHEW. ORAL DISCONT INUED 09/24/2024 [id number] 4 SAMPLES,R OBERTA CYNDI 2023 90 [facility] [...] BEDTIME FOR SLEEP ORAL SUSPEND ED 07/21/2025 [id number] SAMPLES,R OBERTA CYNDI 2024 90 [facility] MELOXICAM 15MG TAB TAKE ONE TABLET BY MOUTH EVERY DAY ORAL ACTIVE SANDEE REYNOLDS 2013 [facility] METFORMIN HCL 1000MG TAB TAKE ONE TABLET BY MOUTH ONCE A DAY FOR DIABETES TAKE WITH FOOD. AVOID ALCOHOL. DISCONTI NUE BEFORE GETTING XRAY DYE. ORAL ACTIVE 09/23/2025 [id number] 5 SAMPLES,R OBERTA CYNDI 2024 90 [facility] METFORMIN HCL 1000MG TAB TAKE ONE TABLET BY MOUTH ONCE A DAY FOR DIABETES TAKE WITH FOOD. AVOID ALCOHOL. DISCONTI NUE BEFORE GETTING XRAY DYE. ORAL DISCONT INUED 09/24/2024 [id number] 5 SAMPLES,R OBERTA CYNDI 2023 90 [facility] METFORMIN HCL 1000MG TAB TAKE ONE TABLET BY MOUTH EVERY DAY FOR DIABETES -DO NOT DRINK ALCOHOL - TAKE WITH FOOD ORAL 09/17/2024 [id number] RISERMAY 2024 30 [facility] METFORMIN HCL 500MG TAB TAKE ONE TABLET BY MOUTH EVERY MORNING ORAL ACTIVE SANDEE REYNOLDS 2014 [facility] METOPROLOL SUCCINATE 100MG TAB,SA TAKE ONE-HALF TABLET BY MOUTH ONCE A DAY FOR HIGH BLOOD PRESSURE SWALLOW WHOLE, DO NOT CRUSH OR CHEW (TABLETS MAY BE CUT IN HALF). ORAL ACTIVE 03/27/2025 [id number] 5 SAMPLES,R OBERTA CYNDI 2023 45 [facility] [...] MINUTES PRIOR TO FOOD. ORAL ACTIVE 09/23/2025 [id number] 5 SAMPLES,R OBERTA CYNDI 2024 90 [facility] OMEPRAZOLE 40MG CAP,EC TAKE ONE CAPSULE BY MOUTH EVERY MORNING BEFORE A MEAL TAKE 30 MINUTES PRIOR TO FOOD. ORAL DISCONT INUED 09/24/2024 [id number] 5 SAMPLES,R OBERTA CYNDI 2023 90 [facility] OXYCODONE HCL 5MG TAB TAKE ONE TABLET BY MOUTH EVERY 6 HOURS NEEDED FOR POST-OPE RATIVE PAIN MAY CAUSE CONSTIPA TION ORAL 06/10/2024 [id number] 4 CARMELA MORRISON 2023 6 [facility] PEG-3350/EL ECTROLYTES PWDR MIX AND [...] TEST. READ YOUR INSTRUCT IONS!) ORAL 12/21/2023 [id number] 4 Devante BLANC ATTHEW H 2023 1 [facility] POLYETHYLEN E GLYCOL 3350 PWDR,ORAL MIX AND DRINK 2 CAPFULS BY MOUTH ONCE A DAY FOR BOWEL EMPTYING (MEASURE WITH CAP AND MIX IN 8 OZ OF WATER) ORAL 01/05/2024 [id number] 4 MACK CHAN 2023 1530 [facility] SIMETHICONE 80MG TAB,CHEW CHEW AND SWALLOW FOUR TABLETS BY MOUTH DIRECTED FOR GAS DISCOMFO RT FOR TWO DOSES BEFORE GI PROCEDUR E ORAL 02/27/2024 [id number] Devante BLANC ATTHEW H 2023 8 [facility] SIMETHICONE 80MG TAB,CHEW CHEW AND SWALLOW FOUR TABLETS BY MOUTH DIRECTED FOR GAS DISCOMFO RT FOR TWO DOSES BEFORE GI PROCEDUR E ORAL 12/21/2023 [id number] 4 Devante BLANC ATTHEW H 2023 8 [facility] TAMSULOSIN HCL 0.4MG CAP TAKE TWO CAPSULES BY MOUTH EVERY EVENING FOR BENIGN PROSTATI C HYPERPLA JOSE D APPROXIM ATELY 30 MINUTES AFTER THE SAME MEAL EACH DAY ORAL ACTIVE 09/23/2025 [id number] 5 SAMPLES,R OBERTA CYNDI 2024 180 [facility] TAMSULOSIN HCL 0.4MG CAP TAKE TWO CAPSULES BY MOUTH EVERY EVENING FOR BENIGN PROSTATI C HYPERPLA JOSE D APPROXIM ATELY 30 MINUTES AFTER THE SAME MEAL EACH DAY ORAL DISCONT INUED 07/22/2024 [id number] SAMPLES,R OBERTA CYNDI 2023 180 [facility] TAMSULOSIN HCL 0.4MG CAP TAKE TWO CAPSULES BY MOUTH EVERY EVENING FOR BENIGN PROSTATI C HYPERPLA JOSE D APPROXIM ATELY 30 MINUTES AFTER THE SAME MEAL EACH DAY ORAL DISCONT INUED 07/22/2024 [id number] 4 SAMPLES,R OBERTA CYNDI 2023 180 [facility] [...] reactions to drug (finding) Cough active 2 [facility] SIMVASTATIN Propensity to adverse reactions to drug (finding) active 9 [place] [facility] SIMVASTATIN Propensity to adverse reactions to drug (finding) Muscle pain active 2 [facility] Immunizations Combined list of available immunizations from the Department of Defense and Veterans Affairs facilities. Immunization Series Date Given Administered By Site Reaction Lot Number CVX Code Drug Licensed Tax Consultant Status Comments Source INFLUENZA, UNSPECIFIED FORMULATION 2022 88 complet ed HISTORICA L INFORMATI ON - FROM OTHER PROVIDER, [facility] ZOSTER RECOMBINANT 2 2021 187 complet ed HISTORICA L INFORMATI ON - FROM OTHER REGISTRY, per JLV given at [facility] N ZOSTER RECOMBINANT 1 2021 187 complet ed HISTORICA L INFORMATI ON - FROM OTHER REGISTRY, [facility] INFLUENZA, UNSPECIFIED FORMULATION [address] [facility] PNEUMOCOCCAL POLYSACCHARID E PPV23 2 2020 33 complet ed HISTORICA L INFORMATI ON - FROM OTHER REGISTRY, [facility] COVID-19 (MODERNA), MRNA, LNP-S, PF, 100 MCG/0.5ML DOSE OR 50 MCG/0.25ML DOSE 2 2020 207 complet ed HISTORICA L INFORMATI ON - FROM OTHER REGISTRY, [facility] COVID-19 (MODERNA), MRNA, LNP-S, PF, 100 MCG/0.5ML DOSE OR 50 MCG/0.25ML DOSE 1 2020 207 complet ed HISTORICA L INFORMATI ON - FROM OTHER REGISTRY, [facility] INFLUENZA, HIGH-DOSE, QUADRIVALENT, PF 1 2019 197 complet ed HISTORICA L INFORMATI ON - FROM OTHER REGISTRY, [facility] INFLUENZA, UNSPECIFIED FORMULATION 2019 88 complet ed [facility] INFLUENZA, SPLIT VIRUS, QUADRIVALENT, PF 1 2018 150 complet ed HISTORICA L INFORMATI ON - FROM OTHER REGISTRY, [facility] PNEUMOCOCCAL CONJUGATE PCV 13 1 2018 133 complet ed HISTORICA L INFORMATI ON - FROM OTHER REGISTRY, [facility] INFLUENZA, SEASONAL, INJECTABLE 2018 141 complet ed [facility], [facility] PNEUMOCOCCAL CONJUGATE PCV 13 2018 133 complet ed date unknown [facility], [facility] INFLUENZA, SPLIT VIRUS, TRIVALENT, PRESERVATIVE 2 2017 141 complet ed HISTORICA L INFORMATI ON - FROM OTHER REGISTRY, [facility] INFLUENZA, HIGH-DOSE, TRIVALENT, PF 1 2017 135 complet ed HISTORICA L INFORMATI ON - FROM OTHER REGISTRY, [facility] INFLUENZA, HIGH DOSE SEASONAL 2017 135 complet ed [facility], [facility] PNEUMOCOCCAL CONJUGATE PCV 13 2012 133 complet ed [facility] TDAP [address] [facility] TD (ADULT), 2 LF TETANUS TOXOID, PRESERVATIVE FREE, ADSORBED 1 2007 09 complet ed HISTORICA L INFORMATI ON - FROM OTHER REGISTRY, [facility] Results Combined list of recent chemistry, hematology and other laboratory results from Department of Defense and Veterans Affairs, ranging from 15 months to all on record, depending upon the facility. Order Name Results Value Reference Range Date Interpretation Specimen Comments Source B12 COBALAMIN (VITAMIN B12) [MASS/VOLUM E] IN SERUM OR PLASMA 548 pg/mL 213 - 816 09/22 Specimen Type: SERUM No comment entered. Ordering Provider: SONNY SCHMIDT Report Released Date/Time: Sep 20, 2024 04:29 PM Reporting Lab: [facility] [address] [place] [address] Performing Lab: [address] [facility] CBC LEUKOCYTES [#/VOLUME] IN BLOOD BY AUTOMATED COUNT 5.0 10*3/u L 3.6 - 11.2 09/22 Specimen Type: BLOOD No comment entered. Ordering Provider: SONNY SCHMIDT Report Released Date/Time: Sep 20, 2024 04:29 PM Reporting Lab: [place] [address] Performing Lab: [address] [facility] CBC ERYTHROCYTE S [#/VOLUME] IN BLOOD BY AUTOMATED COUNT 4.54 10*6/u L 4.10 - 5.70 09/22 Specimen Type: BLOOD No comment entered. Ordering Provider: SONNY SCHMIDT Report Released Date/Time: Sep 20, 2024 04:29 PM Reporting Lab: [place] [address] Performing Lab: [address] [facility] CBC HEMOGLOBIN [MASS/VOLUM E] IN BLOOD 14.7 g/dL 13.1 - 16.8 09/22 Specimen Type: BLOOD No comment entered. Ordering Provider: SONNY SCHMIDT Report Released Date/Time: Sep 20, 2024 04:29 PM Reporting Lab: [place] [address] Performing Lab: [address] [facility] CBC HEMATOCRIT [VOLUME FRACTION] OF BLOOD 43.5 38.2 - 48.4 09/22 Specimen Type: BLOOD No comment entered. Ordering Provider: SONNY SCHMIDT Report Released Date/Time: Sep 20, 2024 04:29 PM Reporting Lab: [place] [phone] Performing Lab: [phone] [place] [address] [facility] CBC MCV [ENTITIC VOLUME] BY AUTOMATED COUNT 95.8 fL 80.0 - 100.0 09/22 Specimen Type: BLOOD No comment entered. Ordering Provider: SONNY SCHMIDT Report Released Date/Time: Sep 20, 2024 04:29 PM Reporting Lab: [place] [address] Performing Lab: [address] [facility] CBC MCH [ENTITIC MASS] BY AUTOMATED COUNT 32.4 pg 27.0 - 34.0 09/22 Specimen Type: BLOOD No comment entered. Ordering Provider: SONNY SCHMIDT Report Released Date/Time: Sep 20, 2024 04:29 PM Reporting Lab: [place] [address] Performing Lab: [phone] [facility] CBC MCHC [MASS/VOLUM E] BY AUTOMATED COUNT 33.8 g/dL 33.0 - 36.0 09/22 Specimen Type: BLOOD No comment entered. Ordering Provider: SONNY SCHMIDT Report Released Date/Time: Sep 20, 2024 04:29 PM Reporting Lab: [place] [address] Performing Lab: [phone] [facility] CBC PLATELETS [#/VOLUME] IN BLOOD BY AUTOMATED COUNT 242 10*3/u L 150 - 400 09/22 Specimen Type: BLOOD No comment entered. Ordering Provider: SONNY SCHMIDT Report Released Date/Time: Sep 20, 2024 04:29 PM Reporting Lab: [place] [address] Performing Lab: [facility] [address] [place] [phone] [place] [facility] CBC PLATELET MEAN VOLUME [ENTITIC VOLUME] IN BLOOD BY AUTOMATED COUNT 10.5 fL 7.5 - 11.2 09/22 Specimen Type: BLOOD No comment entered. Ordering Provider: SONNY SCHMIDT Report Released Date/Time: Sep 20, 2024 04:29 PM Reporting Lab: [address] [phone] Performing Lab: [phone] [place] [address] [facility] CBC ERYTHROCYTE DISTRIBUTIO N WIDTH [RATIO] BY AUTOMATED COUNT 12.1 11.8 - 15.1 09/22 Specimen Type: BLOOD No comment entered. Ordering Provider: SONNY SCHMIDT Report Released Date/Time: Sep 20, 2024 04:29 PM Reporting Lab: [address] [phone] Performing Lab: [phone] [place] [address] [facility] CBC LYMPHOCYTES /100 LEUKOCYTES IN BLOOD BY AUTOMATED COUNT 32 09/22 Specimen Type: BLOOD No comment entered. Ordering Provider: SONNY SCHMIDT Report Released Date/Time: Sep 20, 2024 04:29 PM Reporting Lab: [address] [phone] Performing Lab: [phone] [place] [address] [facility] CBC MONOCYTES/1 00 LEUKOCYTES IN BLOOD BY AUTOMATED COUNT 7 09/22 Specimen Type: BLOOD No comment entered. Ordering Provider: SONNY SCHMIDT Report Released Date/Time: Sep 20, 2024 04:29 PM Reporting Lab: [facility] [address] [place] [phone] Performing Lab: [address] [phone] [place] [address] [facility] CBC NEUTROPHILS /100 LEUKOCYTES IN BLOOD BY AUTOMATED COUNT 58 09/22 Specimen Type: BLOOD No comment entered. Ordering Provider: SONNY SCHMIDT Report Released Date/Time: Sep 20, 2024 04:29 PM Reporting Lab: [facility] [address] [place] [id number] Performing Lab: [address] [phone] [place] [address] [facility] CBC EOSINOPHILS /100 LEUKOCYTES IN BLOOD BY AUTOMATED COUNT 3 09/22 Specimen Type: BLOOD No comment entered. Ordering Provider: SONNY SCHMIDT Report Released Date/Time: Sep 20, 2024 04:29 PM Reporting Lab: [address] [phone] Performing Lab: [place] [id number] [facility] CBC BASOPHILS/1 00 LEUKOCYTES IN BLOOD BY AUTOMATED COUNT 1 09/22 Specimen Type: BLOOD No comment entered. Ordering Provider: SONNY SCHMIDT Report Released Date/Time: Sep 20, 2024 04:29 PM Reporting Lab: [facility] [address] [place] [address] Performing Lab: [address] [phone] [facility] CBC LYMPHOCYTES [#/VOLUME] IN BLOOD BY AUTOMATED COUNT 1.60 10*3/u L 0.77 - 4.50 09/22 Specimen Type: BLOOD No comment entered. Ordering Provider: SONNY SCHMIDT Report Released Date/Time: Sep 20, 2024 04:29 PM Reporting Lab: [facility] [address] [place] [phone] Performing Lab: [address] [phone] [facility] CBC MONOCYTES [#/VOLUME] IN BLOOD BY AUTOMATED COUNT 0.35 10*3/u L 0.19 - 0.80 09/22 Specimen Type: BLOOD No comment entered. Ordering Provider: SONNY SCHMIDT Report Released Date/Time: Sep 20, 2024 04:29 PM Reporting Lab: [facility] [address] [address] Performing Lab: [address] [phone] [place] [address] [facility] CBC NEUTROPHILS [#/VOLUME] IN BLOOD BY AUTOMATED COUNT 2.87 10*3/u L 2.10 - 8.00 09/22 Specimen Type: BLOOD No comment entered. Ordering Provider: SONNY SCHMIDT Report Released Date/Time: Sep 20, 2024 04:29 PM Reporting Lab: [place] [address] Performing Lab: [place] [phone] [facility] CBC EOSINOPHILS [#/VOLUME] IN BLOOD BY AUTOMATED COUNT 0.13 10*3/u L 0.00 - 0.60 09/22 Specimen Type: BLOOD No comment entered. Ordering Provider: SONNY SCHMIDT Report Released Date/Time: Sep 20, 2024 04:29 PM Reporting Lab: [address] [address] Performing Lab: [address] [phone] [facility] CBC BASOPHILS [#/VOLUME] IN BLOOD BY AUTOMATED COUNT 0.03 10*3/u L 0.00 - 0.20 09/22 Specimen Type: BLOOD No comment entered. Ordering Provider: SONNY SCHMIDT Report Released Date/Time: Sep 20, 2024 04:29 PM Reporting Lab: [place] [phone] Performing Lab: [address] [facility] COMPREHEN SIVE METABOLIC PANEL CREATININE [MASS/VOLUM E] IN SERUM OR PLASMA 1.01 mg/dL 0.7 - 1.3 09/22 Specimen Type: PLASMA Comment: No hemolysis noted. Ordering Provider: SONNY SCHMIDT Report Released Date/Time: Sep 20, 2024 04:29 PM Reporting Lab: [address] Performing Lab: [facility] [address] [place] [facility] COMPREHEN SIVE METABOLIC PANEL UREA NITROGEN [MASS/VOLUM E] IN SERUM OR PLASMA 15.7 mg/dL 9.0 - 25.0 09/22 Specimen Type: PLASMA Comment: No hemolysis noted. Ordering Provider: SONNY SCHMIDT Report Released Date/Time: Sep 20, 2024 04:29 PM Reporting Lab: [place] [address] [facility] [address] Performing Lab: [place] [address] [facility] [address] [place] [address] [facility] COMPREHEN SIVE METABOLIC PANEL GLUCOSE [MASS/VOLUM E] IN SERUM OR PLASMA 217 mg/dL 72 - 99 09/22 H Specimen Type: PLASMA Comment: No hemolysis noted. Ordering Provider: SONNY SCHMIDT Report Released Date/Time: Sep 20, 2024 04:29 PM Reporting Lab: [place] [address] [facility] [address] Performing Lab: [place] [address] [facility] [address] [place] [address] [facility] COMPREHEN SIVE METABOLIC PANEL SODIUM [MOLES/VOLU ME] IN SERUM OR PLASMA 136 meq/L 136 - 145 09/22 Specimen Type: PLASMA Comment: No hemolysis noted. Ordering Provider: SONNY SCHMIDT Report Released Date/Time: Sep 20, 2024 04:29 PM Reporting Lab: [place] [address] [facility] [address] Performing Lab: [address] [phone] [place] [address] [facility] COMPREHEN SIVE METABOLIC PANEL POTASSIUM [MOLES/VOLU ME] IN SERUM OR PLASMA 4.2 meq/L 3.5 - 5 09/22 Specimen Type: PLASMA Comment: No hemolysis noted. Ordering Provider: SONNY SCHMIDT Report Released Date/Time: Sep 20, 2024 04:29 PM Reporting Lab: [place] [address] [facility] [address] Performing Lab: [facility] [address] [place] [facility] COMPREHEN SIVE METABOLIC PANEL CHLORIDE [MOLES/VOLU ME] IN SERUM OR PLASMA 107 meq/L 98 - 107 09/22 Specimen Type: PLASMA Comment: No hemolysis noted. Ordering Provider: SONNY SCHMIDT Report Released Date/Time: Sep 20, 2024 04:29 PM Reporting Lab: [place] [address] [facility] [address] Performing Lab: [place] [address] [facility] [address] [place] [address] [facility] COMPREHEN SIVE METABOLIC PANEL CARBON DIOXIDE, TOTAL [MOLES/VOLU ME] IN SERUM OR PLASMA 23 meq/L 22 - 31 09/22 Specimen Type: PLASMA Comment: No hemolysis noted. Ordering Provider: SONNY SCHMIDT Report Released Date/Time: Sep 20, 2024 04:29 PM Reporting Lab: [place] [address] [facility] [address] Performing Lab: [address] [phone] [place] [address] [facility] COMPREHEN SIVE METABOLIC PANEL CALCIUM [MASS/VOLUM E] IN SERUM OR PLASMA 9.1 mg/dL 8.4 - 10.4 09/22 Specimen Type: PLASMA Comment: No hemolysis noted. Ordering Provider: SONNY SCHMIDT Report Released Date/Time: Sep 20, 2024 04:29 PM Reporting Lab: [facility] [address] Performing Lab: [address] [address] [place] [facility] COMPREHEN SIVE METABOLIC PANEL PROTEIN [MASS/VOLUM E] IN SERUM OR PLASMA 6.5 g/dL 6 - 8.6 09/22 Specimen Type: PLASMA Comment: No hemolysis noted. Ordering Provider: SONNY SCHMIDT Report Released Date/Time: Sep 20, 2024 04:29 PM Reporting Lab: [facility] [address] Performing Lab: [facility] [address] [place] [address] [phone] [place] [address] [facility] COMPREHEN SIVE METABOLIC PANEL ALBUMIN [MASS/VOLUM E] IN SERUM OR PLASMA 3.5 g/dL 3.4 - 5 09/22 Specimen Type: PLASMA Comment: No hemolysis noted. Ordering Provider: SONNY SCHMIDT Report Released Date/Time: Sep 20, 2024 04:29 PM Reporting Lab: [address] [address] Performing Lab: [address] [phone] [facility] COMPREHEN SIVE METABOLIC PANEL BILIRUBIN.T OTAL [MASS/VOLUM E] IN SERUM OR PLASMA 0.6 mg/dL 0.2 - 1.2 09/22 Specimen Type: PLASMA Comment: No hemolysis noted. Ordering Provider: SONNY SCHMIDT Report Released Date/Time: Sep 20, 2024 04:29 PM Reporting Lab: [address] [address] Performing Lab: [address] [phone] [place] [address] [facility] COMPREHEN SIVE METABOLIC PANEL ALKALINE PHOSPHATASE [ENZYMATIC ACTIVITY/VO LUME] IN SERUM OR PLASMA 146 U/L 40 - 150 09/22 Specimen Type: PLASMA Comment: No hemolysis noted. Ordering Provider: SONNY SCHMIDT Report Released Date/Time: Sep 20, 2024 04:29 PM Reporting Lab: [address] [address] Performing Lab: [phone] [facility] COMPREHEN SIVE METABOLIC PANEL ASPARTATE AMINOTRANSF ERASE [ENZYMATIC ACTIVITY/VO LUME] IN SERUM OR PLASMA 16 U/L 5 - 34 09/22 Specimen Type: PLASMA Comment: No hemolysis noted. Ordering Provider: SONNY SCHMIDT Report Released Date/Time: Sep 20, 2024 04:29 PM Reporting Lab: [place] [address] [place] [address] Performing Lab: [phone] [place] [address] [facility] COMPREHEN SIVE METABOLIC PANEL ALANINE AMINOTRANSF ERASE [ENZYMATIC ACTIVITY/VO LUME] IN SERUM OR PLASMA 16 U/L 8 - 40 09/22 Specimen Type: PLASMA Comment: No hemolysis noted. Ordering Provider: SONNY SCHMIDT Report Released Date/Time: Sep 20, 2024 04:29 PM Reporting Lab: [facility] [address] [place] [address] Performing Lab: [address] [phone] [place] [address] [facility] COMPREHEN SIVE METABOLIC PANEL GLOMERULAR FILTRATION RATE/1.73 SQ M.PREDICTED [VOLUME RATE/AREA] IN SERUM, PLASMA OR BLOOD BY CREATININE- BASED FORMULA (CKD-EPI 2020) 74.7 60 09/22 Specimen Type: PLASMA Comment: No hemolysis noted. Ordering Provider: SONNY SCHMIDT Report Released Date/Time: Sep 20, 2024 04:29 PM Reporting Lab: [facility] [address] [place] [address] Performing Lab: [address] [facility] HGA1C HEMOGLOBIN A1C/HEMOGLO BIN.TOTAL IN BLOOD 7.4 4.0 - 6.0 09/22 H Specimen Type: BLOOD No comment entered. Ordering Provider: SONNY SCHMIDT Report Released Date/Time: Sep 20, 2024 04:29 PM Reporting Lab: [facility] [address] [place] [address] Performing Lab: [address] [facility] LIPID PANEL (STL) CHOLESTEROL [MASS/VOLUM E] IN SERUM OR PLASMA 185 mg/dL 0 - 200 09/22 Specimen Type: PLASMA Comment: No hemolysis noted. Ordering Provider: SONNY SCHMIDT Report Released Date/Time: Sep 20, 2024 04:29 PM Reporting Lab: [facility] [address] [place] [phone] Performing Lab: [address] [phone] [place] [address] [facility] LIPID PANEL (STL) TRIGLYCERID E [MASS/VOLUM E] IN SERUM OR PLASMA 171 mg/dL 0 - 150 09/22 H Specimen Type: PLASMA Comment: No hemolysis noted. Ordering Provider: SONNY SCHMIDT Report Released Date/Time: Sep 20, 2024 04:29 PM Reporting Lab: [address] [address] Performing Lab: [address] [phone] [place] [address] [facility] LIPID PANEL (STL) CHOLESTEROL IN LDL [MASS/VOLUM E] IN SERUM OR PLASMA BY CALCULATION 115 mg/dL 09/22 Specimen Type: PLASMA Comment: No hemolysis noted. Ordering Provider: SONNY SCHMIDT Report Released Date/Time: Sep 20, 2024 04:29 PM Reporting Lab: [address] [address] Performing Lab: [address] [phone] [place] [address] [facility] LIPID PANEL (STL) CHOLESTEROL IN HDL [MASS/VOLUM E] IN SERUM OR PLASMA 36 mg/dL 40 09/22 L Specimen Type: PLASMA Comment: No hemolysis noted. Ordering Provider: SONYN SCHMIDT Report Released Date/Time: Sep 20, 2024 04:29 PM Reporting Lab: [address] [address] Performing Lab: [address] [phone] [place] [address] [facility] MAGNESIUM MAGNESIUM [MASS/VOLUM E] IN SERUM OR PLASMA 1.7 mg/dL 1.6 - 2.6 09/22 Specimen Type: PLASMA Comment: No hemolysis noted. Ordering Provider: SONNY SCHMIDT Report Released Date/Time: Sep 20, 2024 04:29 PM Reporting Lab: [facility] [address] [place] [phone] Performing Lab: [address] [phone] [place] [address] [facility] MICRAL/CR EAT PROFILE (STL) ALBUMIN [MASS/VOLUM E] IN URINE 7.6 mg/L 09/22 Specimen Type: URINE No comment entered. Ordering Provider: SONNY SCHMIDT Report Released Date/Time: Sep 20, 2024 04:29 PM Reporting Lab: [place] [phone] Performing Lab: [place] [phone] [facility] MICRAL/CR EAT PROFILE (L) ALBUMIN/CRE ATININE [MASS RATIO] IN URINE 5 mg/g 0 - 29 09/22 Specimen Type: URINE No comment entered. Ordering Provider: SONNY SCHMIDT Report Released Date/Time: Sep 20, 2024 04:29 PM Reporting Lab: [address] [address] Performing Lab: [address] [phone] [facility] MICRAL/CR EAT PROFILE (STL) CREATININE [MASS/VOLUM E] IN URINE 158.4 mg/dL 63 - 166 09/22 Specimen Type: URINE No comment entered. Ordering Provider: SONNY SCHMIDT Report Released Date/Time: Sep 20, 2024 04:29 PM Reporting Lab: [address] [address] Performing Lab: [address] [phone] [facility] TSH W/ REFLEX FT4 (STL) THYROTROPIN [UNITS/VOLU ME] IN SERUM OR PLASMA 2.029 u[IU]/ mL 0.47 - 5 09/22 Specimen Type: PLASMA No comment entered. Ordering Provider: SONNY SCHMIDT Report Released Date/Time: Sep 20, 2024 04:29 PM Reporting Lab: [facility] [address] [address] Performing Lab: [address] [phone] [facility] VITAMIN D, 25-HYDROX Y 25-HYDROXYV ITAMIN D3 [MASS/VOLUM E] IN SERUM OR PLASMA 23.7 ng/mL 30 - 96 09/22 L Specimen Type: SERUM No comment entered. Ordering Provider: SONNY SCHMIDT Report Released Date/Time: Sep 20, 2024 04:29 PM Reporting Lab: [address] [address] Performing Lab: [address] [phone] [place] [address] [facility] GLUCOSE,B LOOD-poct (ST) GLUCOSE [MASS/VOLUM E] IN BLOOD BY AUTOMATED TEST STRIP 154 mg/dL 72 - 99 05/11 H Specimen Type: BLOOD Comment: Test Performed by: [id number] Meter #: [id number] Ordering Provider: CARMELA MORRISON Report Released Date/Time: May 11, 2024 06:36 AM Reporting Lab: [address] [address] Performing Lab: [address] Vital Signs Combined list of inpatient and outpatient Vital Signs from Department of Defense and Veterans Affairs, ranging from 12 months to all on record, depending upon the facility. Vital Sign Value Date Comments Source SYSTOLIC BLOOD PRESSURE 103 12/28/19 25 10:01:44 [facility] DIASTOLIC BLOOD PRESSURE 60 025 10:01:44 [facility] PULSE OXIMETRY 96 % 12/27/2024 10:01:44 [facility] WEIGHT 230 12/27/2024 10:01:44 [facility] BMI 31 kg/m2 12/27/2024 10:01:44 [facility] PAIN 0 12/27/2024 10:01:44 [facility] TEMPERATURE 97.2 12/27/2024 10:01:44 [facility] PULSE 70 12/27/2024 10:01:44 [facility] RESPIRATION 16 12/27/2024 10:01:44 [facility] SYSTOLIC BLOOD PRESSURE 154 12/08/19 11:01:58 [place] DIASTOLIC BLOOD PRESSURE 71 025 11:01:58 [facility] PULSE OXIMETRY 97 % 12/07/2024 11:01:58 [facility] WEIGHT 229.6 12/07/2024 11:01:58 [facility] BMI 31 kg/m2 12/07/2024 11:01:58 [facility] PAIN 3 12/07/2024 11:01:58 [facility] HEIGHT 72 12/07/2024 11:01:58 [facility] TEMPERATURE 97.3 12/07/2024 11:01:58 [facility] PULSE 66 12/07/2024 11:01:58 [facility] RESPIRATION 18 12/07/2024 11:01:58 [facility] SYSTOLIC BLOOD PRESSURE 139 09/23/19 11:38:53 [facility] DIASTOLIC BLOOD PRESSURE 74 025 11:38:53 [facility] PULSE OXIMETRY 98 09/22/2024 11:38:53 [facility] WEIGHT 231.8 09/22/2024 [facility]:38:53 [facility] 32 kg/m2 09/22/2024 11:38:53 [facility] PAIN 4 09/22/2024 11:38:53 [facility] HEIGHT 72 09/22/2024 11:38:53 [facility] TEMPERATURE 97.5 09/22/2024 11:38:53 [facility] PULSE 58 09/22/2024 11:38:53 [facility] RESPIRATION 18 09/22/2024 11:38:53 [facility] SYSTOLIC BLOOD PRESSURE 144 08/18/19 25 11:47:00 [facility] Samu[facility] DIASTOLIC BLOOD PRESSURE 71 025 11:47:00 [facility] PAIN 0 08/18/2024 11:47:00 [facility] TEMPERATURE 97.8 08/18/2024 11:47:00 ROMERO Samuels [facility] PULSE 66 08/18/2024 11:47:00 [facility] RESPIRATION 18 08/18/2024 11:47:00 [facility] SYSTOLIC BLOOD PRESSURE 144 05/19/20 13:34:48 [facility] DIASTOLIC BLOOD PRESSURE 80 024 13:34:48 [facility] PULSE OXIMETRY 98 05/19/2024 13:34:48 [facility] WEIGHT 217.9 05/19/2024 13:34:48 [facility] BMI 30 kg/m2 05/19/2024 13:34:48 [facility] PAIN 0 05/19/2024 13:34:48 [facility] HEIGHT 72 05/19/2024 13:34:48 [facility] TEMPERATURE 97.5 05/19/2024 13:34:48 [facility] PULSE 70 05/19/2024 13:34:48 [facility] RESPIRATION 18 05/19/2024 13:34:48 [facility] Encounters Combined list of: 1) Encounters from Department of Veterans Affairs facilities going backup to the last 18 months, not all [place] inpatient encounters are included; 2) Encounters from the Department of Defense facilities going backup to 280 months. Location Location Details Encounter Type Encounter Number Reason For Visit Attending Provider ADM Date DC Date Status Disposition Source [facility] SELF-MGMT EDUC & [place] [id number] Diagnos is: ICD-10- CM R26.81 Unstead iness on feet RUSSELL,DEVI BROWNING P 08/06 [place] [facility] HC PRO PHONE CALL 21-30 MIN [id number] Diagnos is: ICD-10- CM Z72.3 Lack of physica l AR Armstrong 08/15 [facility] SELF-MGMT EDUC & TRA[place] 1 [place] [id number] Diagnos is: ICD-10- CM Z72.3 Lack of physica l exercis e AR WINTER S 08/20 [facility] EXERCISE CLASS [id number] Diagnos is: ICD-10- CM Z72.3 Lack of physica l exercis e LALIT,ANG SEEMA 08/24 [facility] EXERCISE CLASS [id number] Diagnos is: ICD-10- CM Z72.3 Lack of physica l exercis e LALIT,ANG SEEMA 08/25 [facility] HC PRO PHONE CALL 5-10 MIN [id number] YI MARISCAL 08/25 [facility] N [facility] Outpatient Encounter [id number] BRAYAN,SONNY HANNA 08/31 [place] [facility] Outpatient Encounter [id number] Devante GRAFF 08/31 [facility] SELF-MGMT EDUC & TRAIN 1 [place] [id number] Diagnos is: ICD-10- CM Z72.3 Lack of physica l exercis e AR WINTER S 09/02 [facility] EXERCISE CLASS [id number] Diagnos is: ICD-10- CM Z72.3 Lack of physica l exercis e GREG ANDREA 09/03 [facility] Outpatient Encounter [id number] 09/03 [facility] Outpatient Encounter [id number] SAMPLES,SONNY LOO CYNDI 09/04 [facility] OFFICE O/P EST MOD 30 MIN [id number] Diagnos is: ICD-10- CM 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 RAMYA LONGORIA 09/08 [facility] EXERCISE CLASS [id number] Diagnos is: ICD-10- CM Z72.3 Lack of physica l exercis e AR WINTER 09/14 [facility] EXERCISE CLASS [id number] Diagnos is: ICD-10- CM Z72.3 Lack of physica l exercis e GREG ANDREA 09/17 [facility] EXERCISE CLASS [id number] Diagnos is: ICD-10- CM Z72.3 Lack of physica l exercis e DEVI WELLS P 09/21 [facility] OFFICE O/P EST MOD 30 MIN [id number] Diagnos is: ICD-10- CM M25.569 Pain in 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 knee SAMPLES,SONNY LOO CYNDI 09/23 [place] [facility] EXERCISE CLASS [id number] Diagnos is: ICD-10- CM Z72.3 Lack of physica l exercis e GREG ANDREA 09/24 [facility] EX[facility] CLASS [id number] Diagnos is: ICD-10- CM Z72.3 Lack of physica l exercis e MELISSA NULL 09/29 [facility] Outpatient Encounter [id number] 09/30 [facility] EXERCISE CLASS [id number] Diagnos is: ICD-10- CM Z72.3 Lack of physica l exercis e GREG ANDREA 10/01 [facility] OFF/OP EST MAY X REQ PHY/QHP [id number] Snoi NAILS 10/02 [facility] EXERCISE CLASS [id number] Diagnos is: ICD-10- CM Z72.3 Lack of physica l exercis e WILFRID ABREU 10/06 [facility] HC PRO PHONE CALL 5-10 MIN [id number] Diagnos is: ICD-10- CM Z72.3 Lack of physica l exercis e AR WINTER 10/12 [facility] Outpatient Encounter [id number] 10/13 [facility] Outpatient Encounter [id number] 10/14 [facility] OFF/OP EST MAY X REQ PHY/QHP [id number] Diagnos is: ICD-10- CM 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, 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 NEGRITA WARREN 10/16 [place] [facility] EXERCISE CLASS [id number] Diagnos is: ICD-10- CM Z72.3 Lack of physica l exercis e RUSSELL,BENJ BROWNING P 10/19 [facility] OFFICE O/P EST LOW 20 MIN [id number] Diagnos is: ICD-10- CM 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, 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 SAMPLES,RO CINDA CYNDI 10/20 [place] [facility] Outpatient Encounter [id number] 10/20 [facility] EXERCISE CLASS [id number] Diagnos is: ICD-10- CM Z72.3 Lack of physica l exercis e Michael WARNER 10/22 [facility] EXERCISE CLASS [id number] Diagnos is: ICD-10- CM Z72.3 Lack of physica l exercis e RUSSELL,BENJ BROWNING P 10/26 [facility] EXERCISE CLASS [id number] Diagnos is: ICD-10- CM Z72.3 Lack of physica l exercis e GREG ANDREA E 10/29 [facility] EXERCISE CLASS [id number] Diagnos is: ICD-10- CM Z72.3 Lack of physica l exercis e RUSSELL,BENJ BROWNING P 11/02 [facility] EXERCISE CLASS [id number] Diagnos is: ICD-10- CM Z72.3 Lack of physica l exercis e LUIS CARLOS COHN SEEMA 11/03 [facility] EXERCISE CLASS [id number] Diagnos is: ICD-10- CM Z72.3 Lack of physica l exercis e TIMMY,Michael MY L 11/05 [facility] EXERCISE CLASS [id number] Diagnos is: ICD-10- CM Z72.3 Lack of physica l exercis e DEVI WELLS BROWNING P 11/09 [facility] OFFICE O/P EST MOD 30 MIN [id number] Diagnos is: ICD-10- CM F41.1 General ized anxiety disorde r TATE THOMPSON 11/19 [facility] Outpatient Encounter [id number] 11/19 [facility] OFF/OP CNSLTJ NEW/EST MOD 40 [id number] [id number] Diagnos is: ICD-10- CM R10.10 Upper abdomin al pain, 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 PEDRITO BLANC TTHEW H 11/20 [facility] OFFICE O/P EST MOD 30 MIN 85568-2.65 [id number] Diagnos is: ICD-10- CM 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, 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 ALEXX ARANDA LLIADevante E III 11/30 [facility] EXERCISE CLASS [id number] [id number] Diagnos is: ICD-10- CM Z72.3 Lack of physica l exercis e RUSSELL,BENJ BROWNING P 01/11 [facility] EXERCISE CLASS [id number] [id number] Diagnos is: ICD-10- CM Z72.3 Lack of physica l exercis e Michael WARNER MY L 01/14 [facility] EXERCISE CLASS [id number] [id number] Diagnos is: ICD-10- CM Z72.3 Lack of physica l exercis e RUSSELL,BENJ BROWNING P 01/18 [facility] EXERCISE CLASS 92900-7.65 [id number] Diagnos is: ICD-10- CM Z72.3 Lack of physica l exercis e RUSSELL,BENJ BROWNING P 01/25 [facility] EXERCISE CLASS [id number] [id number] Diagnos is: ICD-10- CM Z72.3 Lack of physica l exercis e RAMÓN ARCHER NNAH J 01/26 [facility] Outpatient Encounter [id number] [id number] 01/27 [facility] Outpatient Encounter [id number] [id number] Romeo BLANCO 01/27 [facility] EXERCISE CLASS 07179-6.65 [id number] Diagnos is: ICD-10- CM Z72.3 Lack of physica l exercis e AR WINTER 02/[address] [facility] [facility] Outpatient Encounter [id number] 02/04 [facility] OFFICE O/P EST MOD 30 MIN 29915-5.65 [id number] Diagnos is: ICD-10- CM Z01.818 Encount er for other preproc edural examina LUCIEN Cabezas 02/04 [facility] OFFICE O/P EST SF 10 MIN 92567-2.65 [id number] Diagnos is: ICD-10- CM R93.2 Abnorma l finding s on dx imaging of liver and biliary tract BRENDAN IRELAND S 02/04 [facility] Outpatient Encounter [id number] 02/04 [facility] Outpatient Encounter [id number] [id number] JEF FARNSWORTH E 02/04 [facility] EXERCISE CLASS 40006-4.65 [id number] Diagnos is: ICD-10- CM Z72.3 Lack of physica l exercis e DEVI WELLS P 02/08 [facility] PT EDUCATION NOC GROUP [id number] [id number] Diagnos is: ICD-10- CM Z72.3 Lack of physica l exercis e RAMÓN ARCHER J 02/09 [facility] PT EDUCATION NOC GROUP [id number] [id number] Diagnos is: ICD-10- CM Z72.3 Lack of physica l exercis e GREG ANDREA E 02/11 [facility] COMPRE OPH EXAM EST PT 1/ 71159-0.65 [id number] 2 Diagnos is: ICD-10- CM E11.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 ations Devante PRINGLE ESTEFANIA 02/23 [facility] DIVISION OFFICE O/P EST LOW 20 MIN 32933-7.65 [id number] 006 Diagnos is: ICD-10- CM F41.1 General ized anxiety disorde r TATE THOMPSON 02/24 [facility] Outpatient Encounter 08553-9.65 [id number] JENNIFER SAEZ 02/24 [facility] PT EDUCATION NOC GROUP 87535-5.65 [id number] 523 Diagnos is: ICD-10- CM Z72.3 Lack of physica l exercis e Michael WARNER 02/25 [facility] DIVISION OFFICE O/P EST LOW 20 MIN 70592-2.65 [id number] 5 Diagnos is: ICD-10- CM 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 JOSE RAFAEL Caballero 03/01 [facility] Outpatient Encounter 20745-9.65 [id number] 2 03/01 [facility] Outpatient Encounter 80493-4.65 [id number] 4 03/02 [facility] EXERCISE CLASS 25718-8.65 [id number] 849 Diagnos is: ICD-10- CM Z72.3 Lack of physica l exercis e GREG ANDREA 03/04 [facility] PT EDUCATION NOC GROUP 71478-6.65 [id number] 562 Diagnos is: ICD-10- CM Z72.3 Lack of physica l exercis e LALIT,ANG SEEMA 03/09 [facility] PHYSICAL PERFORMANC E TEST 56238-9.65 [id number] 720 Diagnos is: ICD-10- CM Z72.3 Lack of physica l exercis e AR WINTER 03/10 [facility] EXERCISE CLASS 43711-1.65 [id number] 145 Diagnos is: ICD-10- CM Z72.3 Lack of physica l exercis e Michael WARNER 03/11 [facility] Outpatient Encounter 85417-0.65 [id number] 2 03/15 [facility] EXERCISE CLASS 63862-4.65 [id number] 124 Diagnos is: ICD-10- CM Z72.3 Lack of physica l exercis e SUZI,MELGAR NNAH J 03/16 [facility] EXERCISE CLASS 14437-4.65 [id number] 404 Diagnos is: ICD-10- CM Z72.3 Lack of physica l exercis e GEDULIG,MELGAR NNAH J 03/18 [facility] PT EDUCATION NOC GROUP 63352-8.65 [id number] 831 Diagnos is: ICD-10- CM Z72.3 Lack of physica l exercis e LALIT,ANG SEEMA 03/23 [facility] [place] [facility] HC PRO PHONE CALL 5-10 MIN 96765-5.65 [id number] YI MARISCAL 03/23 [facility] N [facility] PT EDUCATION NOC GROUP 32008-3.65 [id number] Diagnos is: ICD-10- CM Z72.3 Lack of physica l exercis e GREG ANDREA 03/25 [facility] OFFICE O/P EST MOD 30 MIN 10890-6.65 [id number] Diagnos is: ICD-10- CM 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 sophia SONNY SCHMIDT 03/26 [facility] EXERCISE CLASS 65558-9.65 [id number] 310 Diagnos is: ICD-10- CM Z72.3 Lack of physica l exercis e DEVI WELLS P 03/29 [facility] Outpatient Encounter 58280-1.65 [id number] 1 Diagnos is: ICD-10- CM 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 delilahNOAH Shine 03/29 [facility] EXERCISE CLASS 38909-3.65 [id number] 377 Diagnos is: ICD-10- CM Z72.3 Lack of physica l exercis e Michael WARNER MY Neal 04/01 [facility] N [facility] PT EDUCATION NOC GROUP [id number] [id number] 228 Diagnos is: ICD-10- CM Z72.3 Lack of physica l exercis e GREG ANDREA E 04/08 [facility] DIVISION OFFICE O/P EST MOD 30 MIN 17359-6.65 [id number] Diagnos is: ICD-10- CM Z01.818 Encount er for other preproc edural examina FABRIZIO Shoemaker RODOLFO F 04/12 [facility] Outpatient Encounter 07102-3.65 [id number] 04/14 [facility] OFF/OP EST MAY X REQ PHY/QHP 79951-3.65 [id number] 770 Diagnos is: ICD-10- CM 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 NEGRITA WARREN 04/14 [facility] PT EDUCATION NOC GROUP 33455-1.65 [id number] Diagnos is: ICD-10- CM Z72.3 Lack of physica l exercis e Michael WARNER 04/15 [facility] Outpatient Encounter 10850-0.65 [id number] 04/29 [facility] HC PRO PHONE CALL 5-10 MIN 97450-3.65 [id number] Diagnos is: ICD-10- CM R93.2 Abnorma l finding s on dx imaging of liver and biliary tract PEOPLES,JENNIFER Daniel 05/04 [facility] Outpatient Encounter 43211-0.65 [id number] 05/04 [facility] PT EDUCATION NOC GROUP 74099-8.65 [id number] 958 Diagnos is: ICD-10- CM Z72.3 Lack of physica l exercis e RAMÓN ARCHER J 05/06 [facility] OFF/OP EST MAY X REQ PHY/QHP 12753-1.65 [id number] 714 Diagnos is: ICD-10- CM E11.40 Type 2 diabete s mellitu s with diabeti c neuropa thy, unsp NEGRITA WARREN 05/06 [facility] Out[facility] Encounter 96272-1.65 [id number] 05/07 [facility] DIVISION OFFICE O/P EST MOD 30 MIN 49566-6.65 [id number] 3 Diagnos is: ICD-10- CM 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 CARMELA MORRISON 05/10 [facility] REAGENT STRIP/BLOO D GLUCOSE 07502-6.65 [id number] 1 Diagnos is: ICD-10- CM 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 HILCHRISTINERD,LO RI D 05/10 [facility] DIVISION OFFICE O/P EST MOD 30 MIN 26139-2.65 [id number] 9 Diagnos is: ICD-10- CM Z01.818 Encount er for other preproc edural examina tiGILLIAN Dasilva IEL P 05/10 [facility] Outpatient Encounter 69469-1.65 [id number] 4 05/10 [facility] Outpatient Encounter 59461-0.65 [id number] GILLIAN BARNES IEL P 05/10 [facility] Outpatient Encounter 95168-5.65 [id number] 4 FANI OSCAR 05/10 [facility] Outpatient Encounter 29944-5.65 [id number] 1 JOSE RAFAEL MATHIS 05/10 [facility] Outpatient Encounter 04837-0.65 [id number] 9 05/10 [facility] LAPAROSCOP IC CHOLECYSTE CTOMY 35845-8.65 [id number] 2 RODRIGO RAMIREZ Wes 05/10 [facility] Outpatient Encounter 32738-1.65 [id number] 1 RODRIGO RAMIREZ Wes 05/10 [facility] Outpatient Encounter 29356-4.65 [id number] 1 FANI OSCAR 05/10 [facility] HOSP IP/OBS SAME DATE MOD 70 96118-1.65 [id number] Diagnos is: ICD-10- CM K81.1 Chronic cholecy stitis JOSE RAFAEL MATHIS 05/10 [facility] Outpatient Encounter 86788-6.65 [id number] 2 CHAROWILFRID 05/10 [facility] Inpatient Encounter 70712-1.65 [id number] Admit Reason: CHOLECY SITIS CARMELA MRORISON 05/10 [facility] Inpatient Encounter 98522-3.65 [id number] 0 JOSIAH ZEE 05/10 [facility] Inpatient Encounter 60406-3.65 [id number] 5 JOSIAH ZEE L 05/10 [facility] Inpatient Encounter 72668-4.65 [id number] 0 JOSIAH ZEE L 05/10 [facility] Inpatient Encounter 66267-1.65 [id number] 7 BRIAN HUERTA 05/10 [facility] Inpatient Encounter 78480-7.65 [id number] 1 RUSSELL ZUNIGA RALDINE 05/11 [facility] Inpatient Encounter 74704-3.65 [id number] 0 RUSSELL ZUNIGA RALDINE 05/11 [facility] Inpatient Encounter 79422-9.65 [id number] 5 RUSSELL ZUNIGA RALDINE 05/11 [facility] OFF/OP EST OCTOBER X REQ PHY/QHP 56626-2.65 [id number] 7 Diagnos is: ICD-10- CM K81.1 Chronic cholecy stitis JOSE RAFAEL MATHIS 05/11 [facility] Inpatient Encounter 85419-6.65 [id number] 4 YESI SWARTZ 05/11 [facility] Outpatient Encounter 41249-8.65 [id number] 9 SEYMOUR GOMEZ 05/11 [facility] Outpatient Encounter 47897-2.65 [id number] 1 05/12 [facility] OFF/OP EST MAY X REQ PHY/QHP 13242-6.65 [id number] 118 Diagnos is: ICD-10- CM 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, 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 fiNEGRITA Díaz 05/12 [facility] POSTOP FOLLOW-UP VISIT 22679-5.65 [id number] 8 Diagnos is: ICD-10- CM 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 JOSE RAFAEL Caballero 05/19 [facility] Outpatient Encounter 54873-6.65 [id number] 4 05/31 [facility] Outpatient Encounter 91682-6.65 [id number] 8 05/31 [facility] Outpatient Encounter 21817-0.65 [id number] 2 JENNIFER SAEZ M 06/03 [facility] EXERCISE CLASS 49479-3.65 [id number] 886 Diagnos is: ICD-10- CM Z72.3 Lack of physica l exercis e DEVI WELLS P 06/07 [facility] PT EDUCATION NOC GROUP 38408-4.65 [id number] 698 Diagnos is: ICD-10- CM Z72.3 Lack of physica l exercis e Michael WARNER 06/10 [facility] Outpatient Encounter 03321-2.65 [id number] 06/14 [facility] PT EDUCATION NOC GROUP 59572-4.65 [id number] 318 Diagnos is: ICD-10- CM Z72.3 Lack of physica l exercis e AR WINTER 06/21 [facility] PT EDUCATION NOC INDIVID 39668-9.65 [id number] 148 Diagnos is: ICD-10- CM Z72.3 Lack of physica l exercis e GREG ANDREA E 06/28 [facility] PT EDUCATION NOC GROUP 71374-7.65 [id number] 002 Diagnos is: ICD-10- CM Z72.3 Lack of physica l exercis e GEDULIG,MELGAR NNAH J 06/29 [facility] PT EDUCATION NOC GROUP 84749-3.65 [id number] 761 Diagnos is: ICD-10- CM Z72.3 Lack of physica l exercis e GREG ANDREA E 07/01 [facility] Outpatient Encounter 35413-7.65 [id number] 4 07/02 [facility] PT EDUCATION NOC GROUP 44913-0.65 [id number] 984 Diagnos is: ICD-10- CM Z72.3 Lack of physica l exercis e GEDULIG,MELGAR NNAH J 07/06 [facility] PT EDUCATION NOC GROUP 12588-5.65 [id number] 552 Diagnos is: ICD-10- CM Z72.3 Lack of physica l exercis e Michael WARNER 07/08 [facility] PT EDUCATION NOC GROUP 95622-6.65 [id number] 458 Diagnos is: ICD-10- CM Z72.3 Lack of physica l exercis e LUIS CARLOS COHN SEEMA 07/13 [facility] PT EDUCATION NOC GROUP 66481-4.65 [id number] 755 Diagnos is: ICD-10- CM Z72.3 Lack of physica l exercis e RUSSELLDEVI BANERJEE P 07/19 [facility] PT EDUCATION NOC GROUP 34711-2.65 [id number] 778 Diagnos is: ICD-10- CM Z72.3 Lack of physica l exercis e AR WINTER S 07/20 [facility] DIVISION Outpatient Encounter [id number] [id number] 07/20 [facility] PT EDUCATION NOC GROUP 22571-3.65 [id number] 269 Diagnos is: ICD-10- CM Z72.3 Lack of physica l exercis e WILFRID ABREU 07/26 [facility] PT EDUCATION NOC GROUP 01594-1.65 [id number] 318 Diagnos is: ICD-10- CM Z72.3 Lack of physica l exercis e AR WINTER S 07/27 [facility] DIVISION PT EDUCATION NOC GROUP 67909-2.65 [id number] 447 Diagnos is: ICD-10- CM Z72.3 Lack of physica l exercis e Michael WARNER 07/29 [facility] PT EDUCATION NOC GROUP 64361-4.65 [id number] 694 Diagnos is: ICD-10- CM Z72.3 Lack of physica l exercis e RAMÓN ARCEHR NNAH J 08/03 [facility] PT EDUCATION NOC GROUP 59598-6.65 [id number] 293 Diagnos is: ICD-10- CM Z72.3 Lack of physica l exercis e GREG ANDREA 08/05 [facility] EXERCISE CLASS 12614-3.65 [id number] 451 Diagnos is: ICD-10- CM Z72.3 Lack of physica l exercis e RUSSELL,BENJ BROWNING P 08/16 [facility] ROMERO Courtney [facility] OFFICE O/P EST SF 10 MIN 77464-1.62 [id number] 65 Diagnos is: ICD-10- CM Z76.0 Encount er for issue of repeat prescri ption RISERLORENZO 08/18 ROMERO Courtney [facility] ROMERO Samuels [facility] HEARING AID REPAIR/MOD IFYING 41923-4.62 [id number] 97 Diagnos is: ICD-10- CM Z46.1 Encount er for fitting and adjustm ent of hearing aid GOYO ACOSTA 08/19 [facility] Samuels [facility] PT EDUCATION NOC GROUP 59767-3.65 [id number] 236 Diagnos is: ICD-10- CM Z72.3 Lack of physica l exercis e AR WINTER 08/24 [facility] PT EDUCATION NOC GROUP 28431-1.65 [id number] 841 Diagnos is: ICD-10- CM Z72.3 Lack of physica l exercis e RUSSELL,BENJ BROWNING P 09/06 [facility] N [facility] EXERCISE CLASS [id number] [id number] 490 Diagnos is: ICD-10- CM Z72.3 Lack of physica l exercis e AR WINTER S 09/14 [facility] PT EDUCATION NOC GROUP 96796-3.65 [id number] 297 Diagnos is: ICD-10- CM Z72.3 Lack of physica l exercis e Michael WARNER 09/16 [facility] N [facility] PT EDUCATION NOC GROUP 98271-4.65 [id number] 800 Diagnos is: ICD-10- CM Z72.3 Lack of physica l exercis e DEVI WELLS P 09/20 [facility] PH1 ASSMT&MGMT NQHP 5-10 34260-7.65 [id number] YI MARISCAL 09/21 [facility] N [place] [facility] OFFICE O/P EST MOD 30 MIN 50273-7.65 [id number] 880 Diagnos is: ICD-10- CM 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 SAMPLES,SONNY HANNA 09/22 [place] [facility] EDU&TRN PT SELF-MGMT NQHP 1 12956-6.65 [id number] 053 Diagnos is: ICD-10- CM Z72.3 Lack of physica l exercis e GREG ANDREA 09/23 [facility] PT EDUCATION NOC GROUP 72363-3.65 [id number] 057 Diagnos is: ICD-10- CM Z72.3 Lack of physica l exercis e AR WINTER S 09/27 [facility] PT EDUCATION NOC GROUP 12967-0.65 [id number] 158 Diagnos is: ICD-10- CM Z72.3 Lack of physica l exercis e Michael WARNER MY L 09/30 [facility] Outpatient Encounter 87034-2.65 [id number] LAINE BRIDGES RLA F 10/04 [facility] Outpatient Encounter [id number] [id number] 4 LAINE BRIDGES RLA F 10/04 [facility] PT EDUCATION NOC GROUP 99527-8.65 [id number] 676 Diagnos is: ICD-10- CM Z72.3 Lack of physica l exercis e RUSSELL,BENJ BROWNING P 10/04 [facility] EDU&TRN PT SELF-MGMT NQHP 1 05757-5.65 [id number] 562 Diagnos is: ICD-10- CM Z72.3 Lack of physica l exercis e RUSSELL,BENJ BROWNING P 10/18 [facility] PT EDUCATION NOC GROUP 74521-9.65 [id number] 270 Diagnos is: ICD-10- CM Z72.3 Lack of physica l exercis e RUSSELL,BENJ BROWNING P 11/01 [facility] HEARING AID REPAIR/MOD IFYING 31782-1.65 [id number] 3 Diagnos is: ICD-10- CM Z46.1 Encount er for fitting and adjustm ent of hearing aid JAMES BARRAGAN 11/05 [facility] EXERCISE CLASS 25176-4.65 [id number] 487 Diagnos is: ICD-10- CM Z72.3 Lack of physica l exercis e AR WINTER 11/[address] [facility] [facility] Outpatient Encounter 33912-7.65 [id number] 3 11/09 [facility] Outpatient Encounter 37600-2.65 [id number] 4 11/09 [facility] EXERCISE CLASS 65129-5.65 [id number] 653 Diagnos is: ICD-10- CM Z72.3 Lack of physica l exercis e AR WINTER S 11/11 [facility] PT EDUCATION NOC GROUP 41996-8.65 [id number] 960 Diagnos is: ICD-10- CM Z72.3 Lack of physica l exercis e AR WINTER S 11/16 [facility] Outpatient Encounter 15170-8.65 [id number] 3 11/16 [facility] Outpatient Encounter 90508-0.65 [id number] 4 11/26 [facility] Outpatient Encounter 49539-6.65 [id number] 6 11/29 [facility] PH1 ASSMT&MGMT NQHP 5-10 84999-7.65 [id number] YI MARISCAL 12/03 [facility] PT EDUCATION NOC GROUP 80882-1.65 [id number] 103 Diagnos is: ICD-10- CM Z72.3 Lack of physica l exercis e DEVI WELLS P 12/06 [facility] OFFICE O/P EST MOD 30 MIN 87286-2.65 [id number] 001 Diagnos is: ICD-10- CM E11.40 Type 2 diabete s mellitu s with diabeti c neuropa thy, unsp SAMPLES,RO CINDA CYNDI 12/07 [facility] Out[facility] Encounter 10715-6.65 [id number] 3 12/13 [facility] Outpatient Encounter 64173-3.65 [id number] 0 12/14 [facility] OFFICE O/P EST MOD 30 MIN 32322-9.65 [id number] 9 Diagnos is: ICD-10- CM Z98.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 ROXANNE ASHLEY 12/27 [facility] Outpatient Encounter 91767-8.65 [id number] 2 12/27 [facility] Outpatient Encounter 19038-7.65 [id number] 7 12/27 [facility] Outpatient Encounter 31559-5.65 [id number] 8 12/27 [facility] Outpatient Encounter 01722-8.65 [id number] 6 01/07 [facility] Outpatient Encounter 15142-3.65 [id number] 5 01/11 [facility] Outpatient Encounter 27658-0.65 [id number] 6 01/14 [facility] Outpatient Encounter 13094-2.65 [id number] 5 01/21 [facility] Outpatient Encounter 14842-8.65 [id number] 7 01/25 [facility] Outpatient Encounter 84989-5.65 [id number] 5 01/27 [facility] Outpatient Encounter 18786-2.65 [id number] 6 01/28 [facility] Procedures Combined list of: 1) Procedures from Department of [facility] facilities going back up to thelast 18 months, not all [place] non-surgical procedures are included; 2) All procedures from the Department of [facility] facilities. Procedure Procedure Type Code Date Perfomer Comments Sourc e LAPAROSCOPIC CHOLECYSTECTOMY LAPAROSCOPIC CHOLECYSTECTOMY 91902 05/10/20 24 [facility] Social History Combined list of available smoking, tobacco, and other social history from Department of [facility] and [facility] facilities. Social History Type Response Date Comment Sourc e Tobacco smoking status INIS [facility] NEVER USED 03/26/2024 [facility] History of tobacco use VA-TOBACCO NEVER USED 02/10/2023 [facility] History of tobacco use VA-TOBACCO NEVER USED 01/11/2022 [facility] History of tobacco use VA-TOBACCO NEVER USED 07/12/2020 [facility] History of tobacco use VA-TOBACCO NEVER USED 05/21/2019 [facility] History of tobacco use VA-TOBACCO NEVER USED 05/12/2018 [facility] History of tobacco use LIFETIME NON-TOBA FAMILY THERAPIST USER 11/10/2013 [facility] This section is an empty social history section. [facility] Plan of Care List of future care activities from Department of [facility] Affairs facilities. Additional future care activities may be listed in the Assessment and Plan section. Date/Time Care Activity Care Activity Detail Facili ty 02/17/2025 AMBULATORY - SURGERY [facility] Advance Directives List of completed, amended, or rescinded Advance Directives on record at Department of Veterans Affairs facilities. An actual copy of the Directive is not included. Date Advance Directive Provider Source 01/14/2022 ADVANCE DIRECTIVE DISCUSSION SHEA WINTER [facility]
--- OUTSIDE RECORDS SUMMARY | 2025-01-28 16:42 | XMS_ITS | Encounter Summary ---
Author Organization [facility] Address [address] [place] [address] Care Team Providers Care Associate Agent Insurance Sales Name Role Phone Unavailable Primary Care Provider Unavailabl e Reason for Visit * Reason Onset Date Comments Medication Refill 01/26/2025 Encounter Details Date Type Department Care Team (Late st Contact Info) Description 01/26/2025 Refill [facility] Orthopedic Surgery - [address] [place] [address] [place] [phone] Yayo Degroot MD [address] [place] [address] Post-op pain Social History Tobacco Use Types Packs/Day Years [...] encounter Miscellaneous Notes * Telephone Encounter - Erendira Turcios RN - 01/26/2025 3:19 PM CDT S/p R TKA 01/05/25 (3wd) RX: [facility] on [address] Script sent to Dr. Perez for JR documented in this encounter Plan of Treatment Upcoming Encounters Date Type Department Care Team (Late st Contact Info) Description 03/03/2025 10:30 AM CDT Office Visit [facility] Orthopedic Surgery - [address] [place] [phone] Yayo Degroot MD [address] [place] [address] 03/03/2025 11:45 AM CDT Office Visit [facility] Heart and Vascular - [address] [place] [phone] Jasvir Coffey MD [address] [place] [phone] 04/28/2025 1:45 PM PROMOTIONS MANAGER Office Visit [facility] Heart and Vascular - [address] [place] [phone] Jasvir Coffey MD [address] [place] [phone] documented as of this encounter Visit Diagnoses Diagnosis Post-op pain Other acute postoperative pain documented in this encounter
[2025-01-28] MEDS: LACTATED RINGERS 1,000 ML 125 ML IV CONT ×2 (18:12→22:13)
--- NOTE | 2025-01-28 18:16 | P.HP_ITS ---
H&P: HPI History of Present Illness Date/Time: 01/28/25 18:16 Chief Complaint: Dizziness and lightheaded Narrative: 79-year-old male with knee surgery 3 weeks ago presents the hospital with dizziness and lightheadedness. Patient states that he was going to the bathroom when he felt extremely dizzy and weak. He is staying with his daughter currently she took his blood pressure was 166/77 and then she checked his blood sugar the 1st reading was 462 then 140 been to 38. The patient states that he believes all of his symptoms are related to his diabetes. Right before the patient knee surgery he had a acute stressful event that is still ongoing. Patient has had a 22 lb weight loss in 3 weeks. He states that he is not very hungry and does admit to feeling depressed. Denies nausea, vomiting, fever chills diarrhea. Review of Systems Review of Systems: 12 systems were reviewed and are negativ e except for as per HPI. [facility] Past Medical History Medical History (Updated 01/28/25 @ 21:17 by Sherrie Hill, INTERNATIONAL EXCHANGE COORDINATOR) Diabetes Insomnia Dementia BPH (benign prostatic hyperplasia) ACS (acute coronary syndrome) Social History Social History (System 01/27/25 @ 16:50 by Micaela Stout) Smoking status: Never smoker Alcohol intake: never Substance use: never Lack of Transportation: No Lack of Food: Never True Current Housing: I Do Not Have Housing Concerned About Future Housing: YES Difficulty Paying Gas/Electric Bills: No Difficulty Paying for Meds: No Currently Unemployed: No Education: Bachelor's Degree Difficulty w/ Childcare or Family Care: No Spiritual care concerns: No Meds Home Medications and Allergies Home Medications ?Medication ?Instructions ?Recorded ?Confirmed ?Type aspirin 81 mg tablet,delayed 81 mg PO QHS 01/28/25 01/28/25 History release (Adult Low Dose Aspirin) atorvastatin 80 mg tablet (Lipitor) 80 mg PO DAILY 01/28/25 01/28/25 History cetirizine 10 mg tablet (24Hour 10 mg PO DAILY 01/28/25 01/28/25 History Allergy) cholecalciferol (vitamin D3) 50 50 mcg PO QHS 01/28/25 01/28/25 History mcg (2,000 unit) capsule (Vitamin D3) clopidogrel 75 mg tablet (Plavix) 75 mg PO DAILY 01/28/25 01/28/25 History cyclobenzaprine 10 mg tablet 10 mg PO HS 01/28/25 01/28/25 History donepezil 10 mg tablet (Aricept) 10 mg PO HS 01/28/25 01/28/25 History empagliflozin 25 mg tablet 25 mg PO DAILY 01/28/25 01/28/25 History (Jardiance) hydrocodone 5 mg-acetaminophen 325 1 tablet PO Q4H PRN pain 01/28/25 01/28/25 History mg tablet irbesartan 75 mg tablet 75 mg PO DAILY 01/28/25 01/28/25 History isosorbide mononitrate 30 mg 30 mg PO QHS 01/28/25 01/28/25 History tablet,extended release 24 hr mecobalamin (vitamin B12) 1,000 1,000 mcg PO QHS 01/28/25 01/28/25 History mcg lozenges melatonin 5 mg capsule 5 mg PO QHS 01/28/25 01/28/25 History metformin 1,000 mg tablet 1,000 mg PO DAILY 01/28/25 01/28/25 History metoprolol succinate 25 mg 25 mg PO DAILY 01/28/25 01/28/25 History tablet,extended release 24 hr omeprazole 40 mg capsule,delayed 40 mg PO DAILY 01/28/25 01/28/25 History release tamsulosin 0.4 mg capsule 0.4 mg PO BID 01/28/25 01/28/25 History Allergies Allergy/AdvReac Type Severity Reaction Status Date / Time simvastatin Allergy Muscle Pain Verified 01/28/25 20:31 MAURICE Inhibitors AdvReac cough Verified 01/28/25 20:31 Vital Signs Vital Signs - 24 hr 01/28/25 15:28 01/28/25 15:28 01/28/25 15:31 Temperature Pulse Rate 78 80 99 Respiratory Rate Blood Pressure 164/83 H 148/79 H 112/61 Pulse Oximetry Oxygen Delivery 01/28/25 15:33 01/28/25 15:41 01/28/25 15:45 Temperature 98.0 F Pulse Rate 64 68 68 Respiratory Rate 20 20 15 Blood Pressure 112/61 Pulse Oximetry 98 98 98 Oxygen Delivery Room Air 01/28/25 16:00 01/28/25 16:02 01/28/25 16:15 Temperature Pulse Rate 66 66 69 Respiratory Rate 18 20 16 Blood Pressure 148/67 H Pulse Oximetry 96 99 94 Oxygen Delivery 01/28/25 16:54 01/28/25 17:24 01/28/25 17:25 Temperature Pulse Rate 63 72 Respiratory Rate 17 Blood Pressure 151/56 H 155/79 H Pulse Oximetry 100 Oxygen Delivery 01/28/25 17:28 Temperature Pulse Rate 81 Respiratory Rate Blood Pressure 110/57 L Pulse Oximetry Oxygen Delivery Exam Narrative: General: well appearing, appears stated age. Sad HEENT: normocephalic, atraumatic. Mucous membranes moist. EOMI, PERRLA, bilateral sclera anicteric, no conjunctival injection. Neck supple without JVD, lymphadenopathy, or bruit. Respiratory: clear to ascultation bilaterally. No rales/rhonic/wheezes. Cardiovascular: Regular rate and rhythm, normal S1-S2 upon ascultation. No murmurs, rubs, or clicks. PMI is nondisplaced, capillary refill less than 3 second. Abdomen: Soft, round, no pulsatile masses, nondistended and nontender. No rebound, no guarding. No CVA tenderness, no hepatosplenomegaly. Bowel sounds present to all four quadrants. No high pitch or tinkling sounds, resonant to percussion. Extremities: No cyanosis, clubbing, or edema present. Pulses are palpable 2/2. Active ROM to all four extremities. Neuro: Alert and orientated x 4. PERRLA. Cranial nerves 2-12 intact without focal deficit. Skin: Warm, dry, and intact, without rash, erythema, or lesion. Psych: pleasant, cooperative, normal speech, normal affect, no hallucinations, no dysarthia H&P: Results Labs Labs: Short CBC 01/28/25 Range/Units 15:27 WBC 8.7 (4.5-10.0) K/mm3 Hgb 14.1 (14.0-18.0) g/dL Hct 44.1 (42.0-52.0) % Plt Count 337 (150-375) k/mm3 BMP 01/28/25 15:27 Sodium 134 L Potassium 4.6 Chloride 100 Carbon Dioxide 21 L BUN 20 Creatinine 1.02 Glucose 122 H Calcium 9.5 Liver Function 01/28/25 Range/Units 15:27 Total Bilirubin 1.3 (0.2-1.3) mg/dL AST 28 (17-59) U/L ALT 28 (6-50) U/L Alkaline Phosphatase 220 H (38-126) U/L Albumin 4.1 (3.5-5.1) g/dL Assessment and Plan Assessment and plan (1) Orthostatic hypotension: Code(s): I95.1 - Orthostatic hypotension Status: Acute Assessment and Plan: Patient was recently at the hospital for orthostatic hypotension the told him that he was dehydrated and decreased his metoprolol from 50 to 25. This is not improved the symptoms Orthostatic vital signs Fluid bolus and IV hydration Patient was recently at the hospital for orthostatic hypotension the told him that he was dehydrated and decreased his metoprolol from 50 to 25. This is not improved the symptoms Telemetry monitoring Echocardiogram (2) Depression: Code(s): F32.A - Depression, unspecified Status: Acute Assessment and Plan: Psychiatry consulted for help in medication management (3) Insomnia: Code(s): G47.00 - Insomnia, unspecified Status: Acute Assessment and Plan: Starting trazodone (4) Unintentional weight loss: Code(s): R63.4 - Abnormal weight loss Status: Acute Assessment and Plan: Patient has had a 22 lb weight loss over the last 3 weeks He states that he just has not been that hungry and is slightly depressed Dietary consult (5) Dementia: Code(s): F03.90 - Unspecified dementia, unspecified severity, without behavioral disturbance, psychotic disturbance, mood disturbance, and anxiety Status: Acute Assessment and Plan: Continue aricept (6) BPH (benign prostatic hyperplasia): Code(s): N40.0 - Benign prostatic hyperplasia without lower urinary tract symptoms Status: Acute Assessment and Plan: Continue Flomax (7) ACS (acute coronary syndrome): Code(s): I24.9 - Acute ischemic heart disease, unspecified Status: Acute Assessment and Plan: Continue Jardiance, Plavix, aspirin, metoprolol and Lipitor (8) Diabetes: Code(s): E11.9 - Type 2 diabetes mellitus without complications Status: Acute Assessment and Plan: Hold home metformin Accu-Cheks aalmas SSI Quality VTE Prophylaxis VTE prophylaxis: mechanical ordered and pharmacologic ordered Hospitalist [facility] Advance Care Plan I have confirmed that the patient's Advanced Care Plan is present, code status is documented, or surrogate decision maker is listed in patient medical record.: Yes Medication Reconciliation I have utilized all available resources to obtain, update and review the patients current medications (includes all prescriptions, OTC, herbals, cannabis, and nutritional supplements).: Yes
[2025-01-28 18:21] LABS: Add Urine Microscopic? NO; Appearance Urine Clear (Clear); Glucose Urine UA 3+ mg/dL (Negative); Leukocyte Esterase Ur Negative LEU/UL (Negative); Nitrate Urine Negative (Negative); Specific Grav Ur 1.020 (1.001-1.035)
--- NOTE | 2025-01-28 18:50 | ADMGEN ---
This patient, Lanre Rutledge, was admitted to [facility] Surg Room 329-01. Patient/family oriented to hospital policies and general routines including ID bracelet, bed and alarms, visiting hours, pain management, procedures, bathroom and other care routines, personal items, smoking policy, room service/diet, and visiting hours. Information on how to activate the Rapid Response Team has been discussed. Patient/Family are encouraged to report perceived risks to care and to ask questions if they do not understand what they are told or what they should do.
--- NOTE | 2025-01-28 18:54 | PC.NURSE ---
RN asked patient if he wanted his pain medication and he stated no, he would like to wait and take it at 22:00 when he goes to bed.
[2025-01-28 20:36] LABS: Anion Gap 11 mmol/L (4-12); Blood Urea Nitrogen 18 mg/dL (9-20); Calcium 9.2 mg/dL (8.4-10.2); Carbon Dioxide 22 mmol/L (22-30); Chloride 100 mmol/L (98-107); Estimated Glomerular Filt Rate > 60; Glucose 150 mg/dL (65-110); Potassium 4.5 mmol/L (3.4-5.0); Sodium 133 mmol/L (137-145)
[2025-01-28] MEDS: HYDROcodone/acetaminophen (*CRX) 5-325 MG TABLET 1 TAB PO (22:12)
[2025-01-29] VITALS (16 sets, daily range): BP systolic 111–147; BP diastolic 53–68; PULSE 56–96; RESP 14–70; TEMP 36.4–36.7; O2SAT 96–100
--- NOTE | 2025-01-29 | ECHO_ITS ---
Patient Info Name: Lanre Rutledge Age: 79 years : 1945 Gender: Male Ht: 72 in Wt: 228 lbs BSA: 2.32 m2 HR: 66 bpm BP: 103 / 56 mmHg Heart Rhythm: Sinus Rhythm Technical Quality: Fair Exam Date: 01/29/2025 7:09 AM Patient Status: I Admit Date: 01/29/2025 Exam Type: CA echo doppler color flow Complete two-dimensional, color flow and Doppler transthoracic echocardiogram is performed. Staff Referring Physician: Junior Amezquita Wire Stripper: Edith Monzon Attending Provider: Chun Simon Summary 1. Complete two-dimensional, color flow and Doppler transthoracic echocardiogram is performed. 2. Left ventricular systolic function is normal, estimated at 60-65. 3. The left ventricular diastolic function is grade I diastolic dysfunction. 4. There is mild aortic valve sclerosis. 5. There is trace aortic valve regurgitation. 6. There is mild mitral valve calcification. 7. There is trace pulmonic regurgitation. 8. The aortic root size at the sinus of Valsalva is mildly dilated. measures 3.9cm. 9. The prox ascending aorta size is mildly dilated. Measures 3.9cm. Left Ventricle Left ventricular chamber dimension is normal. Left ventricular systolic function is normal, estimated at 60-65. There is no increased left ventricular wall thickness. Left ventricular septal wall motion is normal. The left ventricular diastolic function is grade I diastolic dysfunction. Right Ventricle Right ventricular chamber dimension is normal. Right ventricular systolic function is normal. Left Atria Left atrial chamber dimension is normal. Right Atria Right atrial chamber dimension is normal. Aortic Valve The aortic valve is trileaflet. There is mild aortic valve sclerosis. There is no aortic valve stenosis. There is trace aortic valve regurgitation. Pulmonic Valve The pulmonic valve is normal. There is no pulmonic valve stenosis. There is trace pulmonic regurgitation. Mitral Valve The mitral valve has normal leaflets. There is no mitral valve stenosis. There is no mitral valve regurgitation. There is mild mitral valve calcification. Tricuspid Valve The tricuspid valve leaflets are normal. There is no significant tricuspid valve stenosis. There is no tricuspid valve regurgitation. Pericardium/Pleural The pericardium appears normal. There is no pericardial effusion. Inferior Vena Cava Normal inferior vena cava with >50% collapse upon inspiration consistent with normal right atrial pressure, 5 mmHg. Aorta The aortic root size at the sinus of Valsalva is mildly dilated. measures 3.9cm. The prox ascending aorta size is mildly dilated. Measures 3.9cm. Left Ventricular Outflow Tract Name Value Normal LVOT 2D LVOT Diameter 2.2 cm LVOT Doppler LVOT Peak Velocity 93 cm/s LVOT Peak Gradient 3 mmHg LVOT Mean Gradient 2 mmHg LVOT VTI 19 cm LVOT VTI/AV VTI Ratio 0.7 LVOT Stroke Volume 72 ml LVOT CO 4.6 l/min LVOT CI 2.0 l/min/m2 Pulmonic Valve Name Value Normal RVOT Doppler RVOT Peak Velocity 85 cm/s RVOT Peak Gradient 3 mmHg PV Doppler PV Peak Velocity 123 cm/s PV Peak Gradient 6 mmHg Mitral Valve Name Value Normal MV Diastolic Function MV E Peak Velocity 65 cm/s MV A Peak Velocity 108 cm/s MV E/A 0.6 MV Decel Time (PW) 178 ms MV Annular TDI MV E/e' (Septal) 16.7 MV E/e' (Lateral) 12.3 MV E/e' (Average) 14.5 Tricuspid Valve Name Value Normal Estimated PAP/RSVP RA Pressure 5 mmHg <=5 TV Annular TDI TV Lateral Rosemary s' Velocity 13.3 cm/s >=9.5 Aorta Name Value Normal Ascending Aorta Ao Root Diameter (MM) 3.2 cm Ao Root Diam Index (MM) 1.4 cm/m2 Aortic Valve Name Value Normal AV Doppler AV Peak Velocity 161 cm/s AV Peak Gradient 10 mmHg AV Mean Gradient 5 mmHg AV VTI 29 cm AV Area (Cont Eq VTI) 2.4 cm2 >=3.0 AV Area (Cont Eq Arnaldo) 2.1 cm2 AV DI (Arnaldo) 0.58 AV Regurgitation 2D LVOT Area 3.7 cm2 Ventricles Name Value Normal LV Dimensions 2D/MM IVS Diastolic Thickness (2D) 1.0 cm 0.6-1.0 LVID Diastole (2D) 5.2 cm 4.2-5.8 LVIW Diastolic Thickness (2D) 1.0 cm 0.6-1.0 LVID Systole (2D) 2.7 cm 2.5-4.0 LVOT Diameter 2.2 cm LV Mass (2D Cubed) 200.37 g 88.00-224.00 LV Mass Index (2D Cubed) 86 g/m2 49-115 Relative Wall Thickness (2D) 0.39 <=0.42 LV Fractional Shortening/Ejection Fraction 2D/MM LV Fractional Shortening (2D) 47 % 25-43 LV EF (2D Teichholz) 78 % LV Diastolic Volume (4C MOD) 98 ml LV EF (4C MOD) 64 % LV Diastolic Volume (2C MOD) 82 ml LV EF (2C MOD) 63 % LV Diastolic Volume (BP MOD) 91 ml 62-150 LV Diastolic Volume Index (BP MOD) 39 ml/m2 34-74 LV Systolic Volume (BP MOD) 34 ml 21-61 LV Systolic Volume Index (BP MOD) 15 ml/m2 11-31 LV EF (BP MOD) 63 % 52-72 LV Diastolic Length (4C) 8.4 cm LV Systolic Length (4C) 7.4 cm LV Stroke Volume (4C MOD) 63 ml Atria Name Value Normal LA Dimensions LA Dimension (MM) 5.9 cm 3.0-4.0 LA Volume (4C A-L) 74 ml LA Volume (BP A-L) 76 ml RA Dimensions RA Area (4C) 20.3 cm2 <=18.0 Report Signatures
[2025-01-29 06:17] LABS: Hematocrit 41.9 % (42.0-52.0); Hemoglobin 12.5 g/dL (14.0-18.0); Immature Granulocyte Percent A 0.4 % (0-0.5); Lymphocytes Absolute Auto 2.05 K/mm3 (0.9-3.2); Mean Corpuscular HGB Conc 29.8 g/dl (32-36); Mean Corpuscular Hemoglobin 31.4 pg (26-34); Mean Corpuscular Volume 105.3 fl (80-100); Nucleated Red Blood Cells Absolute Auto 0.000 K/mm3 (0.0-0.012); Nucleated Red Blood Cells Perc 0.0 % (0.0-0.2); Platelet Count Result 236 k/mm3 (150-375); Red Blood Count 3.98 M/mm3 (4.6-6.20); White Blood Count 5.2 K/mm3 (4.5-10.0)
[2025-01-29] MEDS: LACTATED RINGERS 1,000 ML 125 ML IV CONT ×3 (06:24→22:33)
[2025-01-29 06:27] LABS: Hemoglobin A1C 6.5 % (<5.7)
[2025-01-29 07:20] LABS: Hypochromasia 1+; Macrocytosis 1+ (NORMAL); Schistocytes None Seen
[2025-01-29] MEDS: EMPAGLIFLOZIN 25 MG TABLET PO (10:03)
[2025-01-29] MEDS: CLOPIDOGREL BISULFATE 75 MG TABLET PO (10:03)
[2025-01-29] MEDS: TAMSULOSIN HCL 0.4 MG CAPSULE PO ×2 (10:03→17:23)
[2025-01-29] MEDS: IRBESARTAN 75 MG TABLET PO (10:03)
[2025-01-29] MEDS: ATORVASTATIN 40 MG TABLET 80 MG PO (10:03)
[2025-01-29] MEDS: LORATADINE 10 MG TABLET PO (10:03)
[2025-01-29] MEDS: METOPROLOL SUCCINATE EXT REL 25 MG TABCR PO (10:04)
[2025-01-29] MEDS: HYDROcodone/acetaminophen (*CRX) 5-325 MG TABLET 1 TAB PO ×2 (10:10→23:55)
[2025-01-29] MEDS: ENOXAPARIN 40 MG/0.4 ML SYRINGE SUB-Q (10:11)
--- NOTE | 2025-01-29 10:24 | P.PSYCH_ITS ---
Assessment and Plan Assessment and plan (1) Major depressive disorder, recurrent severe without psychotic features: Code(s): F33.2 - Major depressive disorder, recurrent severe without psychotic features Status: Acute (2) Insomnia: Code(s): G47.00 - Insomnia, unspecified Status: Acute (3) Dementia: Code(s): F03.90 - Unspecified dementia, unspecified severity, without behavioral disturbance, psychotic disturbance, mood disturbance, and anxiety Status: Acute Plan Patient presenting with history of depression and anxiety, which have both been exacerbated the past two months in context of divorce/relationship strains in family. He is not actively seeing outpatient psychiatry, however previously followed with [facility] about a year ago- which he does not plan to continue at this time. No acute safety concerns present to warrant inpatient behavioral health admission. Discussed treatment options with patient including initiating SSRI, outpatient psychotherapy as treatment options. Recommendations: -Discussed in depth SSRI medication, sertraline, with pt. At this time, he is wanting to think about initiating medication- discussed plan to start low dose 25mg daily if he chooses. Let patient know I would see him tomorrow if not discharged for further discussion. Likely would benefit from combination of psychotherapy and medication management. -Recommend he follow up with outpatient psychiatry for support following discharge. Discussed he may continue care at [facility]- can make apt prior to D/C or utilize walk in clinic. -Cont trazodone as needed for sleep. -Cont Aricept for dementia HPI Data of Consult Date/Time: 01/29/25 10:24 Requesting Physician: Chun Simon MD Primary Care Provider: Jasvir Coffey Consult Narrative Narrative: Lanre Rutledge is a 79 year old male admitted 01/28 following boughts of dizziness at home. Upon admission, he admitted to feeling depressed along with recent 22 pound weight loss. He is calm and cooperative upon interview this morning. He admits to history of depression, anxiety which he has been treated for by psychiatrist at the [facility]. However, he has not seen this provider in about 10 months due to lack of perceived progress- not currently taking medication for depression or anxiety. He admits to increase depression over the past two months, which is largely exacerbated by divorce proceedings with his , who he describes as a narcissist. He is currently living with his daughter, identifies feelings of inadequacy as he has lost position of head of the household, loss of control. Admits to frequent low mood, low motivation, feeling hopeless at times. Denies suicidal ideation or history of suicide attempts. Denies history of inpatient psychiatric hospitalization. Admits to generalized anxiety presenting with outthinking, excessive worry. Denies panic attacks. He has been treated for the depression and anxiety in the past, however he is unsure of names of medication. Notably, he has a history of dementia, which he is prescribed Aricept for- started by psychiatrist at the [facility]. Denies significant concerns with memory at present however admits to vague visual hallucinations- sometimes I see things out of the corner of my eye that are not there. Denies auditory hallucinations, paranoia, no overt psychosis noted during exam. He identifies difficulty falling and staying asleep with frequent awakenings throughout the night to use the restroom. He has taken trazodone and melatonin in the past with partial efficacy. He reports a good appetite, eating about 2-3 meals a day which he reports has been unchanged, however noted to have a 22 pound weight loss on admission. Reports he did not notice the weight loss prior to admission, denies changes in dietary habits. Review of Systems 2 Psychiatric: Psychiatric: Reports depression PMFSH Past Medical History Medical History (Updated 01/29/25 @ 10:34 by Reena Winston APRN) Diabetes Insomnia Dementia BPH (benign prostatic hyperplasia) ACS (acute coronary syndrome) Social History Social History (System 01/27/25 @ 16:50 by Micaela Stout) Smoking status: Never smoker Alcohol intake: never Substance use: never Lack of Transportation: No Lack of Food: Never True Current Housing: I Do Not Have Housing Concerned About Future Housing: YES Difficulty Paying Gas/Electric Bills: No Difficulty Paying for Meds: No Currently Unemployed: No Education: Bachelor's Degree Difficulty w/ Childcare or Family Care: No Spiritual care concerns: No Meds Home Medications and Allergies Home Medications ?Medication ?Instructions ?Recorded ?Confirmed ?Type aspirin 81 mg tablet,delayed 81 mg PO QHS 01/28/25 01/28/25 History release (Adult Low Dose Aspirin) atorvastatin 80 mg tablet (Lipitor) 80 mg PO DAILY 01/28/25 01/28/25 History cetirizine 10 mg tablet (24Hour 10 mg PO DAILY 01/28/25 01/28/25 History Allergy) cholecalciferol (vitamin D3) 50 50 mcg PO QHS 01/28/25 01/28/25 History mcg (2,000 unit) capsule (Vitamin D3) clopidogrel 75 mg tablet (Plavix) 75 mg PO DAILY 01/28/25 01/28/25 History cyclobenzaprine 10 mg tablet 10 mg PO HS 01/28/25 01/28/25 History donepezil 10 mg tablet (Aricept) 10 mg PO HS 01/28/25 01/28/25 History empagliflozin 25 mg tablet 25 mg PO DAILY 01/28/25 01/28/25 History (Jardiance) hydrocodone 5 mg-acetaminophen 325 1 tablet PO Q4H PRN pain 01/28/25 01/28/25 History mg tablet irbesartan 75 mg tablet 75 mg PO DAILY 01/28/25 01/28/25 History isosorbide mononitrate 30 mg 30 mg PO QHS 01/28/25 01/28/25 History tablet,extended release 24 hr mecobalamin (vitamin B12) 1,000 1,000 mcg PO QHS 01/28/25 01/28/25 History mcg lozenges melatonin 5 mg capsule 5 mg PO QHS 01/28/25 01/28/25 History metformin 1,000 mg tablet 1,000 mg PO DAILY 01/28/25 01/28/25 History metoprolol succinate 25 mg 25 mg PO DAILY 01/28/25 01/28/25 History tablet,extended release 24 hr omeprazole 40 mg capsule,delayed 40 mg PO DAILY 01/28/25 01/28/25 History release tamsulosin 0.4 mg capsule 0.4 mg PO BID 01/28/25 01/28/25 History Allergies Allergy/AdvReac Type Severity Reaction Status Date / Time simvastatin Allergy Muscle Pain Verified 01/28/25 20:31 MAURICE Inhibitors AdvReac cough Verified 01/28/25 20:31 Vital Signs Vital Signs - 24 hr 01/28/25 15:28 01/28/25 15:28 01/28/25 15:31 Temperature Pulse Rate 78 80 99 Respiratory Rate Blood Pressure 164/83 H 148/79 H 112/61 Pulse Oximetry Oxygen Delivery 01/28/25 15:33 01/28/25 15:41 01/28/25 15:45 Temperature 98.0 F Pulse Rate 64 68 68 Respiratory Rate 20 20 15 Blood Pressure 112/61 Pulse Oximetry 98 98 98 Oxygen Delivery Room Air 01/28/25 16:00 01/28/25 16:02 01/28/25 16:15 Temperature Pulse Rate 66 66 69 Respiratory Rate 18 20 16 Blood Pressure 148/67 H Pulse Oximetry 96 99 94 Oxygen Delivery 01/28/25 16:54 01/28/25 17:24 01/28/25 17:25 Temperature Pulse Rate 63 72 Respiratory Rate 17 Blood Pressure 151/56 H 155/79 H Pulse Oximetry 100 Oxygen Delivery 01/28/25 17:28 01/28/25 19:06 01/28/25 20:00 Temperature 98.9 F 97.9 F Pulse Rate 81 69 72 Respiratory Rate 18 16 Blood Pressure 110/57 L 153/63 H 128/57 L Pulse Oximetry 100 97 Oxygen Delivery 01/28/25 20:00 01/28/25 20:00 01/28/25 22:24 Temperature 97.9 F Pulse Rate 72 77 72 Respiratory Rate 16 16 Blood Pressure 128/57 L Pulse Oximetry 97 97 Oxygen Delivery Room Air 01/28/25 22:24 01/28/25 22:28 01/28/25 22:32 Temperature Pulse Rate 72 83 105 H Respiratory Rate Blood Pressure 128/57 L 104/51 L 103/56 L Pulse Oximetry Oxygen Delivery 01/29/25 00:00 01/29/25 04:00 01/29/25 06:31 Temperature 98.0 F Pulse Rate 72 66 65 Respiratory Rate 16 Blood Pressure 147/68 H Pulse Oximetry 97 Oxygen Delivery 01/29/25 08:15 01/29/25 08:19 01/29/25 08:21 Temperature Pulse Rate 70 86 96 Respiratory Rate Blood Pressure 147/60 H 134/60 111/60 Pulse Oximetry 99 100 100 Oxygen Delivery 01/29/25 10:04 Temperature Pulse Rate 73 Respiratory Rate Blood Pressure Pulse Oximetry Oxygen Delivery Exam 2 Psych: Appearance: grossly normal Mental Status: mental status grossly normal Speech and movement: Normal speech and movement present Affect: Sad affect present Attitude: cooperative Thought process: Normal thought process present Thought content: Yes Depressive thoughts present Insight: Good insight present (Psych) Judgement: Good judgement present (Psych) Results Labs 01/29/25 06:05 01/28/25 20:16 Labs: Short CBC 01/28/25 01/29/25 Range/Units 15:27 06:05 WBC 8.7 5.2 (4.5-10.0) K/mm3 Hgb 14.1 12.5 L (14.0-18.0) g/dL Hct 44.1 41.9 L (42.0-52.0) % Plt Count 337 236 (150-375) k/mm3 BMP 01/28/25 01/28/25 15:27 20:16 Sodium 134 L 133 L Potassium 4.6 4.5 Chloride 100 100 Carbon Dioxide 21 L 22 BUN 20 18 Creatinine 1.02 0.97 Glucose 122 H 150 H Calcium 9.5 9.2 Liver Function 01/28/25 Range/Units 15:27 Total Bilirubin 1.3 (0.2-1.3) mg/dL AST 28 (17-59) U/L ALT 28 (6-50) U/L Alkaline Phosphatase 220 H (38-126) U/L Albumin 4.1 (3.5-5.1) g/dL Urine 01/28/25 Range/Units 17:56 Urine Color Yellow (Yellow) Urine Appearance Clear (Clear) Urine pH 5.5 (5.0-9.0) Ur Specific Alexis 1.020 (1.001-1.035) Urine Protein Negative (Negative) mg/dL Urine Glucose (UA) 3+ H (Negative) mg/dL
[2025-01-29] MEDS: CHOLESTYRAMINE 4 GM 4 EACH PO (15:37)
[2025-01-29] MEDS: MELATONIN 5 MG TABLET PO (20:44)
[2025-01-29] MEDS: ASPIRIN 81 MG ENTERIC TABLET PO (20:44)
[2025-01-29] MEDS: ISOSORBIDE MONONITRATE 30 MG TAB.ER.24H PO (20:45)
[2025-01-29] MEDS: DONEPEZIL HCL 10 MG TABLET PO (20:46)
[2025-01-30] VITALS (15 sets, daily range): BP systolic 105–160; BP diastolic 57–76; PULSE 54–105; RESP 16–24; TEMP 36.2–36.4; O2SAT 92–99
[2025-01-30] MEDS: LACTATED RINGERS 1,000 ML 125 ML IV CONT ×2 (06:29→14:42)
[2025-01-30] MEDS: ATORVASTATIN 40 MG TABLET 80 MG PO (08:11)
[2025-01-30] MEDS: CLOPIDOGREL BISULFATE 75 MG TABLET PO (08:12)
[2025-01-30] MEDS: EMPAGLIFLOZIN 25 MG TABLET PO (08:12)
[2025-01-30] MEDS: TAMSULOSIN HCL 0.4 MG CAPSULE PO ×2 (08:13→16:56)
[2025-01-30] MEDS: METOPROLOL SUCCINATE EXT REL 25 MG TABCR PO (08:13)
[2025-01-30] MEDS: LORATADINE 10 MG TABLET PO (08:14)
--- NOTE | 2025-01-30 09:52 | WPDPNPSYCH ---
Progress Note: A&P Assessment and Plan (1) Major depressive disorder, recurrent severe without psychotic features: Code(s): F33.2 - Major depressive disorder, recurrent severe without psychotic features Status: Acute (2) MILY (generalized anxiety disorder): Code(s): F41.1 - Generalized anxiety disorder Status: Acute (3) Dementia: Code(s): F03.90 - Unspecified dementia, unspecified severity, without behavioral disturbance, psychotic disturbance, mood disturbance, and anxiety Status: Acute Plan Patient presenting with depression, anxiety, h/o of dementia. He is currently not being treated for the depression or anxiety. Discussed treatment options including medication management and psychotherapy. He is interested in pursuing both treatment options at this time. Recommendations: -Start sertraline 25mg once daily for mood, anxiety. ---educated on s/e of medication, can take 4-6 weeks for full efficacy, importance of compliance. -No safety concerns present, inpatient behavioral health not indicated, safe to d/c home once medically cleared. -Follow up outpatient psychiatry to establish care for medication management and psychotherapy. Discussed he may follow up at [facility] for medication management and psychotherapy, apt can be made prior to D/C or may utilize walk in clinic. Exam Const: General: cooperative Orientation/consciousness: oriented to person, oriented to place and oriented to time Limitations: no limitations Psych: Appearance: grossly normal Mental Status: mental status grossly normal Speech and movement: Normal speech and movement present Affect: Sad affect present Attitude: cooperative Thought process: Normal thought process present Thought content: Yes Depressive thoughts present Insight: Good insight present (Psych) Judgement: Good judgement present (Psych) Objective Data Vital Signs Vital Signs: Vital Signs - 24 hr 01/29/25 10:04 01/29/25 12:04 01/29/25 13:22 Temperature 97.5 F L Pulse Rate 73 73 65 Respiratory Rate 14 Blood Pressure 131/62 Pulse Oximetry 98 Oxygen Delivery Fraction of Inspired Oxygen 01/29/25 16:03 01/29/25 20:00 01/29/25 20:00 Temperature 97.7 F Pulse Rate 56 L 65 Respiratory Rate 16 Blood Pressure 146/65 H Pulse Oximetry 96 Oxygen Delivery Room Air Fraction of Inspired Oxygen 01/29/25 20:00 01/29/25 21:35 01/29/25 22:00 Temperature 97.7 F Pulse Rate 59 L 67 73 Respiratory Rate 20 20 Blood Pressure 115/53 L Pulse Oximetry 97 97 Oxygen Delivery Room Air Fraction of Inspired Oxygen 21 01/29/25 23:01 01/29/25 23:02 01/30/25 00:00 Temperature 97.7 F 97.7 F Pulse Rate 72 73 63 Respiratory Rate 70 H 20 Blood Pressure 134/60 115/53 L Pulse Oximetry 98 97 Oxygen Delivery Fraction of Inspired Oxygen 01/30/25 04:00 01/30/25 06:00 01/30/25 08:00 Temperature 97.6 F 97.6 F Pulse Rate 96 54 L 80 Respiratory Rate 20 20 Blood Pressure 130/66 130/66 Pulse Oximetry 94 94 Oxygen Delivery Fraction of Inspired Oxygen 01/30/25 08:00 01/30/25 08:13 Temperature Pulse Rate 80 80 Respiratory Rate 20 Blood Pressure Pulse Oximetry 94 Oxygen Delivery Room Air Fraction of Inspired Oxygen 21 Intake/Output Intake/Output: Intake & Output 01/27/25 01/28/25 01/29/25 01/30/25 23:59 23:59 23:59 23:59 Intake Total 3000 4970 1491.7 Output Total 4900 1000 Balance 3000 70 491.7 Meds/Results Medications: Active Medications Generic Name Dose Route Start Last Admin Trade Name Freq PRN Reason Stop Dose Admin Acetaminophen 650 mg 01/28/25 18:17 Acetaminophen 325 Mg Tablet PO Q4H PRN Mild Pain (1-3) or Fever Hydrocodone Bitart/Acetaminophen 1 tab 01/28/25 21:14 01/29/25 23:55 Hydrocodone/Acetaminophen (*Crx) 5-325 Mg Tablet PO 1 tab Q4H PRN Administration pain 4-6 Aspirin 81 mg 01/29/25 21:00 01/29/25 20:44 Aspirin 81 Mg Enteric Tablet PO 81 mg QHS LAKISHA Administration Atorvastatin Calcium 80 mg 01/29/25 09:00 01/30/25 08:11 Atorvastatin 40 Mg Tablet PO 80 mg DAILY LAKISHA Administration Clopidogrel Bisulfate 75 mg 01/29/25 09:00 01/30/25 08:12 Clopidogrel Bisulfate 75 Mg Tablet PO 75 mg DAILY LAKISHA Administration Cyclobenzaprine HCl 10 mg 01/28/25 21:14 Cyclobenzaprine Hcl 10 Mg Tablet PO HS PRN Spasm Dextrose 12.5 gm 01/28/25 21:18 Dextrose 50% 25 Gm/50 Ml Syringe IV PUSH PRN PRN Hypoglycemia Protocol Docusate Sodium 100 mg 01/28/25 18:17 Docusate Sodium 100 Mg Capsule PO BID PRN Constipation Donepezil HCl 10 mg 01/29/25 21:00 01/29/25 20:46 Donepezil Hcl 10 Mg Tablet PO 10 mg HS LAKISHA Administration Empagliflozin 25 mg 01/29/25 09:00 01/30/25 08:12 Empagliflozin 25 Mg Tablet PO 25 mg DAILY LAKISHA Administration Enoxaparin Sodium 40 mg 01/29/25 09:00 01/29/25 10:11 Enoxaparin 40 Mg/0.4 Ml Syringe SUB-Q 40 mg DAILY LAKISHA Administration Glucagon 1 mg 01/28/25 21:18 Glucagon For Inj 1 Mg Vial IM PRN PRN Hypoglycemia Protocol Glucose 15 gm 01/28/25 21:18 Glucose Oral Gel 15 Gm Of Glucse In 37.5 Gm Tube PO PRN PRN Hypoglycemia Protocol Lactated Ringer's 1,000 mls @ 125 mls/hr 01/28/25 17:45 01/30/25 06:29 Lr - Lactated Ringers Iv IV CONT 125 mls/hr .Q8H LAKISHA Administration Dextrose 1,000 mls @ 100 mls/hr 01/28/25 21:18 Dextrose 5% 1,000 Ml IVPB PRN PRN Hypoglycemia Protocol Insulin Aspart 3 - 6 units 01/29/25 08:00 01/30/25 09:50 Insulin Aspart (*Bkc) 100 Units/Ml SUB-Q Not Given TIDWM LAKISHA Protocol Insulin Aspart 1 - 3 units 01/29/25 21:00 01/29/25 22:34 Insulin Aspart (*Bkc) 100 Units/Ml SUB-Q Not Given HS LAKISHA Protocol Irbesartan 75 mg 01/29/25 09:00 01/29/25 10:03 Irbesartan 75 Mg Tablet PO 75 mg DAILY LAKISHA Administration Isosorbide Mononitrate 30 mg 01/29/25 21:00 01/29/25 20:45 Isosorbide Mononitrate 30 Mg Tab.Er.24h PO 30 mg QHS LAKISHA Administration Loratadine 10 mg 01/29/25 09:00 01/30/25 08:14 Loratadine 10 Mg Tablet PO 10 mg DAILY LAKISHA Administration Melatonin 5 mg 01/29/25 21:00 01/29/25 20:44 Melatonin 5 Mg Tablet PO 5 mg QHS LAKISHA Administration Metoprolol Succinate 25 mg 01/29/25 09:00 01/30/25 08:13 Metoprolol Succinate Ext Rel 25 Mg Tabcr PO 25 mg DAILY LAKISHA Administration Miscellaneous Information 1 each 01/30/25 00:01 01/30/25 01:56 Prevalite Send To Pharmacy For Verification XX 03/01/25 00:00 Not Given CLARIFY LAKISHA Home Med 4 gram(s) 01/29/25 15:05 01/29/25 15:37 Prevalite 4 Gram(S) PO 02/28/25 15:04 4 gram(s) DAILY@1000 LAKISHA Administration Perflutren Lipid Microsphere 0 ml 01/28/25 21:20 Perflutren Lipid Microspheres 1.5 Ml Vial Diluted To 10 Ml Total Volume IV PUSH 01/31/25 21:21 ONCE PRN adequate visualization Protocol Tamsulosin HCl 0.4 mg 01/29/25 09:00 01/30/25 08:13 Tamsulosin Hcl 0.4 Mg Capsule PO 0.4 mg BID LAKISHA Administration Trazodone HCl 100 mg 01/28/25 21:20 01/28/25 22:12 Trazodone Hcl 50 Mg Tablet PO 100 mg HS PRN Administration Insomnia Radiology Results: ITS Impressions Chest X-Ray 01/28/25 18:08 IMPRESSION: Mild pulmonary vascular congestion, without focal infiltrate or effusion. Labs Labs: Laboratory Results - last 24 hr 01/29/25 01/29/25 01/29/25 11:12 16:12 21:11 POC Capillary Glucose 140 H 115 H 142 H 01/30/25 07:29 POC Capillary Glucose 190 H Subjective Date/time seen: 01/30/25 09:52 Interval history: Patient seen this morning for psychiatric follow up for depression and anxiety. He is calm and cooperative during interview, A/O x 4. Reports he slept more soundly last night. Continues to express feelings of depression noted upon initial examination. No suicidal ideation, safety concerns present. No psychosis, confusion, agitation during admission. Does admit to anxiety, a pit in my stomach. No panic attack. Continues to report psychosocial stressors of family discord, pending divorce with which is largely contributing to his depression and anxiety.
[2025-01-30] MEDS: IRBESARTAN 75 MG TABLET PO (10:10)
[2025-01-30] MEDS: ENOXAPARIN 40 MG/0.4 ML SYRINGE SUB-Q (10:10)
--- NOTE | 2025-01-30 16:37 | P.PNIM_ITS ---
Progress Note: A&P Assessment and Plan (1) Orthostatic hypotension: Code(s): I95.1 - Orthostatic hypotension Status: Acute Assessment and Plan: Patient was recently at the hospital for orthostatic hypotension the told him that he was dehydrated and decreased his metoprolol from 50 to 25. This is not improved the symptoms ECHO EF 60-65%, Grade I diastolic dysfunction S/p IVF Metoprolol on hold Still orthostatic, Midodrine started Telemetry monitoring PT/OT (2) Depression: Code(s): F32.A - Depression, unspecified Status: Acute (3) Insomnia: Code(s): G47.00 - Insomnia, unspecified Status: Acute Assessment and Plan: On Trazodone and Sertraline PSych recommendations appreciated (4) Unintentional weight loss: Code(s): R63.4 - Abnormal weight loss Status: Acute Assessment and Plan: Patient has had a 22 lb weight loss over the last 3 weeks He states that he just has not been that hungry and is slightly depressed Dietary consult (5) Dementia: Code(s): F03.90 - Unspecified dementia, unspecified severity, without behavioral disturbance, psychotic disturbance, mood disturbance, and anxiety Status: Acute Assessment and Plan: Continue aricept (6) BPH (benign prostatic hyperplasia): Code(s): N40.0 - Benign prostatic hyperplasia without lower urinary tract symptoms Status: Acute Assessment and Plan: Continue Flomax (7) ACS (acute coronary syndrome): Code(s): I24.9 - Acute ischemic heart disease, unspecified Status: Acute Assessment and Plan: Continue Jardiance, Plavix, aspirin, metoprolol and Lipitor (8) Diabetes: Code(s): E11.9 - Type 2 diabetes mellitus without complications Status: Acute Assessment and Plan: Hold home metformin Accu-Cheks a.c. HS SSI Plan DVT prophylaxis on Sq Lovenox Subjective Date/time seen: 01/29/25 16:37 Interval history: Comfortable at bedside Still orthostatic today, started on Midodrine Review of Systems Review of Systems: 12 systems were reviewed and are negativ e except for as per HPI. Exam Narrative: General: well appearing, appears stated age. Sad HEENT: normocephalic, atraumatic. Mucous membranes moist. EOMI, PERRLA, bilateral sclera anicteric, no conjunctival injection. Neck supple without JVD, lymphadenopathy, or bruit. Respiratory: clear to ascultation bilaterally. No rales/rhonic/wheezes. Cardiovascular: Regular rate and rhythm, normal S1-S2 upon ascultation. No murmurs, rubs, or clicks. PMI is nondisplaced, capillary refill less than 3 second. Abdomen: Soft, round, no pulsatile masses, nondistended and nontender. No rebound, no guarding. No CVA tenderness, no hepatosplenomegaly. Bowel sounds present to all four quadrants. No high pitch or tinkling sounds, resonant to percussion. Extremities: No cyanosis, clubbing, or edema present. Pulses are palpable 2/2. Active ROM to all four extremities. Neuro: Alert and orientated x 4. PERRLA. Cranial nerves 2-12 intact without focal deficit. Skin: Warm, dry, and intact, without rash, erythema, or lesion. Psych: pleasant, cooperative, normal speech, normal affect, no hallucinations, no dysarthia Objective Data Vital Signs Vital Signs: Vital Signs - 24 hr 01/29/25 20:00 01/29/25 20:00 01/29/25 20:00 Temperature 97.7 F Pulse Rate 65 59 L Respiratory Rate 16 Blood Pressure 146/65 H Pulse Oximetry 96 Oxygen Delivery Room Air Fraction of Inspired Oxygen 01/29/25 21:35 01/29/25 22:00 01/29/25 23:01 Temperature 97.7 F 97.7 F Pulse Rate 67 73 72 Respiratory Rate 20 20 70 H Blood Pressure 115/53 L 134/60 Pulse Oximetry 97 97 98 Oxygen Delivery Room Air Fraction of Inspired Oxygen 21 01/29/25 23:02 01/30/25 00:00 01/30/25 04:00 Temperature 97.7 F Pulse Rate 73 63 96 Respiratory Rate 20 Blood Pressure 115/53 L Pulse Oximetry 97 Oxygen Delivery Fraction of Inspired Oxygen 01/30/25 06:00 01/30/25 08:00 01/30/25 08:00 Temperature 97.6 F 97.6 F Pulse Rate 54 L 80 80 Respiratory Rate 20 20 20 Blood Pressure 130/66 130/66 Pulse Oximetry 94 94 94 Oxygen Delivery Room Air Fraction of Inspired Oxygen 21 01/30/25 08:00 01/30/25 08:13 01/30/25 09:46 Temperature 97.1 F L Pulse Rate 73 80 65 Respiratory Rate 20 Blood Pressure 142/63 H Pulse Oximetry 92 Oxygen Delivery Fraction of Inspired Oxygen 01/30/25 10:37 01/30/25 10:38 01/30/25 11:23 Temperature 97.1 F L 97.1 F L Pulse Rate 80 92 Respiratory Rate 20 20 Blood Pressure 138/63 105/57 L Pulse Oximetry 98 99 Oxygen Delivery Room Air Fraction of Inspired Oxygen 01/30/25 12:00 01/30/25 14:00 01/30/25 15:04 Temperature 97.3 F L Pulse Rate 105 H 67 Respiratory Rate 18 Blood Pressure 136/62 Pulse Oximetry 96 Oxygen Delivery Room Air Fraction of Inspired Oxygen 01/30/25 16:00 Temperature Pulse Rate 78 Respiratory Rate Blood Pressure Pulse Oximetry Oxygen Delivery Fraction of Inspired Oxygen Intake/Output Intake/Output: Intake & Output 01/27/25 01/28/25 01/29/25 01/30/25 23:59 23:59 23:59 23:59 Intake Total 3000 4970 3713.7 Output Total 4900 3150 Balance 3000 70 563.7 Meds/Results Medications: Active Medications Generic Name Dose Route Start Last Admin Trade Name Freq PRN Reason Stop Dose Admin Acetaminophen 650 mg 01/28/25 18:17 Acetaminophen 325 Mg Tablet PO Q4H PRN Mild Pain (1-3) or Fever Hydrocodone Bitart/Acetaminophen 1 tab 01/28/25 21:14 01/29/25 23:55 Hydrocodone/Acetaminophen (*Crx) 5-325 Mg Tablet PO 1 tab Q4H PRN Administration pain 4-6 Aspirin 81 mg 01/29/25 21:00 01/29/25 20:44 Aspirin 81 Mg Enteric Tablet PO 81 mg QHS LAKISHA Administration Atorvastatin Calcium 80 mg 01/29/25 09:00 01/30/25 08:11 Atorvastatin 40 Mg Tablet PO 80 mg DAILY LAKISHA Administration Clopidogrel Bisulfate 75 mg 01/29/25 09:00 01/30/25 08:12 Clopidogrel Bisulfate 75 Mg Tablet PO 75 mg DAILY LAKISHA Administration Cyclobenzaprine HCl 10 mg 01/28/25 21:14 Cyclobenzaprine Hcl 10 Mg Tablet PO HS PRN Spasm Dextrose 12.5 gm 01/28/25 21:18 Dextrose 50% 25 Gm/50 Ml Syringe IV PUSH PRN PRN Hypoglycemia Protocol Docusate Sodium 100 mg 01/28/25 18:17 Docusate Sodium 100 Mg Capsule PO BID PRN Constipation Donepezil HCl 10 mg 01/29/25 21:00 01/29/25 20:46 Donepezil Hcl 10 Mg Tablet PO 10 mg HS LAKISHA Administration Empagliflozin 25 mg 01/29/25 09:00 01/30/25 08:12 Empagliflozin 25 Mg Tablet PO 25 mg DAILY LAKISHA Administration Enoxaparin Sodium 40 mg 01/29/25 09:00 01/30/25 10:10 Enoxaparin 40 Mg/0.4 Ml Syringe SUB-Q 40 mg DAILY LAKISHA Administration Glucagon 1 mg 01/28/25 21:18 Glucagon For Inj 1 Mg Vial IM PRN PRN Hypoglycemia Protocol Glucose 15 gm 01/28/25 21:18 Glucose Oral Gel 15 Gm Of Glucse In 37.5 Gm Tube PO PRN PRN Hypoglycemia Protocol Lactated Ringer's 1,000 mls @ 125 mls/hr 01/28/25 17:45 01/30/25 14:42 Lr - Lactated Ringers Iv IV CONT 125 mls/hr .Q8H LAKISHA Administration Dextrose 1,000 mls @ 100 mls/hr 01/28/25 21:18 Dextrose 5% 1,000 Ml IVPB PRN PRN Hypoglycemia Protocol Insulin Aspart 3 - 6 units 01/29/25 08:00 01/30/25 12:04 Insulin Aspart (*Bkc) 100 Units/Ml SUB-Q Not Given TIDWM L[place]ISHA Protocol Insulin Aspart 1 - 3 units 01/29/25 21:00 01/29/25 22:34 Insulin Aspart (*Bkc) 100 Units/Ml SUB-Q Not Given HS LAKISHA Protocol Irbesartan 75 mg 01/29/25 09:00 01/30/25 10:10 Irbesartan 75 Mg Tablet PO 75 mg DAILY LAKISHA Administration Isosorbide Mononitrate 30 mg 01/29/25 21:00 01/29/25 20:45 Isosorbide Mononitrate 30 Mg Tab.Er.24h PO 30 mg QHS LAKISHA Administration Loratadine 10 mg 01/29/25 09:00 01/30/25 08:14 Loratadine 10 Mg Tablet PO 10 mg DAILY LAKISHA Administration Melatonin 5 mg 01/29/25 21:00 01/29/25 20:44 Melatonin 5 Mg Tablet PO 5 mg QHS LAKISHA Administration Metoprolol Succinate 25 mg 01/29/25 09:00 01/30/25 08:13 Metoprolol Succinate Ext Rel 25 Mg Tabcr PO 25 mg DAILY LAKISHA Administration Midodrine 5 mg 01/30/25 17:00 Midodrine Hcl 2.5 Mg Tablet PO TID [facility] Miscellaneous Information 1 each 01/30/25 00:01 01/30/25 01:56 Prevalite Send To Pharmacy For Verification XX 03/01/25 00:00 Not Given CLARIFY LAKISHA Home Med 4 gram(s) 01/29/25 15:05 01/30/25 11:27 Prevalite 4 Gram(S) PO 02/28/25 15:04 Not Given DAILY@1000 [facility] Perflutren Lipid Microsphere 0 ml 01/28/25 21:20 Perflutren Lipid Microspheres 1.5 Ml Vial Diluted To 10 Ml Total Volume IV PUSH 01/31/25 21:21 ONCE PRN adequate visualization Protocol Sertraline HCl 25 mg 01/31/25 09:00 Sertraline Hcl 25 Mg Tablet PO QAM LAKISHA Tamsulosin HCl 0.4 mg 01/29/25 09:00 01/30/25 08:13 Tamsulosin Hcl 0.4 Mg Capsule PO 0.4 mg BID LAKISHA Administration Trazodone HCl 100 mg 01/28/25 21:20 01/28/25 22:12 Trazodone Hcl 50 Mg Tablet PO 100 mg HS PRN Administration Insomnia Radiology Results: ITS Impressions Chest X-Ray 01/28/25 18:08 IMPRESSION: Mild pulmonary vascular congestion, without focal infiltrate or effusion. Labs Labs: Laboratory Results - last 24 hr 01/29/25 01/30/25 01/30/25 21:11 07:29 11:23 POC Capillary Glucose 142 H 190 H 184 H Quality VTE Prophylaxis VTE prophylaxis: mechanical ordered and pharmacologic ordered
--- NOTE | 2025-01-30 16:40 | P.PNIM_ITS ---
Progress Note: A&P Assessment and Plan (1) Orthostatic hypotension: Code(s): I95.1 - Orthostatic hypotension Status: Acute Assessment and Plan: Patient was recently at the hospital for orthostatic hypotension the told him that he was dehydrated and decreased his metoprolol from 50 to 25. This is not improved the symptoms ECHO EF 60-65%, Grade I diastolic dysfunction S/p IVF Metoprolol on hold Still orthostatic, Midodrine started Telemetry monitoring PT/OT (2) Depression: Code(s): F32.A - Depression, unspecified Status: Acute (3) Insomnia: Code(s): G47.00 - Insomnia, unspecified Status: Acute Assessment and Plan: On Trazodone and Sertraline PSych recommendations appreciated (4) Unintentional weight loss: Code(s): R63.4 - Abnormal weight loss Status: Acute Assessment and Plan: Patient has had a 22 lb weight loss over the last 3 weeks He states that he just has not been that hungry and is slightly depressed Dietary consult (5) Dementia: Code(s): F03.90 - Unspecified dementia, unspecified severity, without behavioral disturbance, psychotic disturbance, mood disturbance, and anxiety Status: Acute Assessment and Plan: Continue aricept (6) BPH (benign prostatic hyperplasia): Code(s): N40.0 - Benign prostatic hyperplasia without lower urinary tract symptoms Status: Acute Assessment and Plan: Continue Flomax (7) ACS (acute coronary syndrome): Code(s): I24.9 - Acute ischemic heart disease, unspecified Status: Acute Assessment and Plan: Continue Jardiance, Plavix, aspirin, metoprolol and Lipitor (8) Diabetes: Code(s): E11.9 - Type 2 diabetes mellitus without complications Status: Acute Assessment and Plan: Hold home metformin Accu-Cheks a.c. HS SSI Plan DVT prophylaxis on Sq Lovenox Subjective Date/time seen: 01/30/25 16:40 Interval history: Comfortable at bedside Still orthostatic today, Adjust Midodrine accordingly Review of Systems Review of Systems: 12 systems were reviewed and are negativ e except for as per HPI. Exam Narrative: General: well appearing, appears stated age. Sad HEENT: normocephalic, atraumatic. Mucous membranes moist. EOMI, PERRLA, bilateral sclera anicteric, no conjunctival injection. Neck supple without JVD, lymphadenopathy, or bruit. Respiratory: clear to ascultation bilaterally. No rales/rhonic/wheezes. Cardiovascular: Regular rate and rhythm, normal S1-S2 upon ascultation. No murmurs, rubs, or clicks. PMI is nondisplaced, capillary refill less than [address] Abdomen: Soft, round, no pulsatile masses, nondistended and nontender. No rebound, no guarding. No CVA tenderness, no hepatosplenomegaly. Bowel sounds present to all four quadrants. No high pitch or tinkling sounds, resonant to percussion. Extremities: No cyanosis, clubbing, or edema present. Pulses are palpable 2/2. Active ROM to all four extremities. Neuro: Alert and orientated x 4. PERRLA. Cranial nerves 2-12 intact without focal deficit. Skin: Warm, dry, and intact, without rash, erythema, or lesion. Psych: pleasant, cooperative, normal speech, normal affect, no hallucinations, no dysarthia Objective Data Vital Signs Vital Signs: Vital Signs - 24 hr 01/29/25 20:00 01/29/25 20:00 01/29/25 20:00 Temperature 97.7 F Pulse Rate 65 59 L Respiratory Rate 16 Blood Pressure 146/65 H Pulse Oximetry 96 Oxygen Delivery Room Air Fraction of Inspired Oxygen 01/29/25 21:35 01/29/25 22:00 01/29/25 23:01 Temperature 97.7 F 97.7 F Pulse Rate 67 73 72 Respiratory Rate 20 20 70 H Blood Pressure 115/53 L 134/60 Pulse Oximetry 97 97 98 Oxygen Delivery Room Air Fraction of Inspired Oxygen 21 01/29/25 23:02 01/30/25 00:00 01/30/25 04:00 Temperature 97.7 F Pulse Rate 73 63 96 Respiratory Rate 20 Blood Pressure 115/53 L Pulse Oximetry 97 Oxygen Delivery Fraction of Inspired Oxygen 01/30/25 06:00 01/30/25 08:00 01/30/25 08:00 Temperature 97.6 F 97.6 F Pulse Rate 54 L 80 80 Respiratory Rate 20 20 20 Blood Pressure 130/66 130/66 Pulse Oximetry 94 94 94 Oxygen Delivery Room Air Fraction of Inspired Oxygen 21 01/30/25 08:00 01/30/25 08:13 01/30/25 09:46 Temperature 97.1 F L Pulse Rate 73 80 65 Respiratory Rate 20 Blood Pressure 142/63 H Pulse Oximetry 92 Oxygen Delivery Fraction of Inspired Oxygen 01/30/25 10:37 01/30/25 10:38 01/30/25 11:23 Temperature 97.1 F L 97.1 F L Pulse Rate 80 92 Respiratory Rate 20 20 Blood Pressure 138/63 105/57 L Pulse Oximetry 98 99 Oxygen Delivery Room Air Fraction of Inspired Oxygen 01/30/25 12:00 01/30/25 14:00 01/30/25 15:04 Temperature 97.3 F L Pulse Rate 105 H 67 Respiratory Rate 18 Blood Pressure 136/62 Pulse Oximetry 96 Oxygen Delivery Room Air Fraction of Inspired Oxygen 01/30/25 16:00 Temperature Pulse Rate 78 Respiratory Rate Blood Pressure Pulse Oximetry Oxygen Delivery Fraction of Inspired Oxygen Intake/Output Intake/Output: Intake & Output 01/27/25 01/28/25 01/29/25 01/30/25 23:59 23:59 23:59 23:59 Intake Total 3000 4970 3713.7 Output Total 4900 3150 Balance 3000 70 563.7 Meds/Results Medications: Active Medications Generic Name Dose Route Start Last Admin Trade Name Freq PRN Reason Stop Dose Admin Acetaminophen 650 mg 01/28/25 18:17 Acetaminophen 325 Mg Tablet PO Q4H PRN Mild Pain (1-3) or Fever Hydrocodone Bitart/Acetaminophen 1 tab 01/28/25 21:14 01/29/25 23:55 Hydrocodone/Acetaminophen (*Crx) 5-325 Mg Tablet PO 1 tab Q4H PRN Administration pain 4-6 Aspirin 81 mg 01/29/25 21:00 01/29/25 20:44 Aspirin 81 Mg Enteric Tablet PO 81 mg QHS LAKISHA Administration Atorvastatin Calcium 80 mg 01/29/25 09:00 01/30/25 08:11 Atorvastatin 40 Mg Tablet PO 80 mg DAILY LAKISHA Administration Clopidogrel Bisulfate 75 mg 01/29/25 09:00 01/30/25 08:12 Clopidogrel Bisulfate 75 Mg Tablet PO 75 mg DAILY LAKISHA Administration Cyclobenzaprine HCl 10 mg 01/28/25 21:14 Cyclobenzaprine Hcl 10 Mg Tablet PO HS PRN Spasm Dextrose 12.5 gm 01/28/25 21:18 Dextrose 50% 25 Gm/50 Ml Syringe IV PUSH PRN PRN Hypoglycemia Protocol Docusate Sodium 100 mg 01/28/25 18:17 Docusate Sodium 100 Mg Capsule PO BID PRN Constipation Donepezil HCl 10 mg 01/29/25 21:00 01/29/25 20:46 Donepezil Hcl 10 Mg Tablet PO 10 mg HS LAKISHA Administration Empagliflozin 25 mg 01/29/25 09:00 01/30/25 08:12 Empagliflozin 25 Mg Tablet PO 25 mg DAILY LAKISHA Administration Enoxaparin Sodium 40 mg 01/29/25 09:00 01/30/25 10:10 Enoxaparin 40 Mg/0.4 Ml Syringe SUB-Q 40 mg DAILY LAKISHA Administration Glucagon 1 mg 01/28/25 21:18 Glucagon For Inj 1 Mg Vial IM PRN PRN Hypoglycemia Protocol Glucose 15 gm 01/28/25 21:18 Glucose Oral Gel 15 Gm Of Glucse In 37.5 Gm Tube PO PRN PRN Hypoglycemia Protocol Lactated Ringer's 1,000 mls @ 125 mls/hr 01/28/25 17:45 01/30/25 14:42 Lr - Lactated Ringers Iv IV CONT 125 mls/hr .Q8H LAKISHA Administration Dextrose 1,000 mls @ 100 mls/hr 01/28/25 21:18 Dextrose 5% 1,000 Ml IVPB PRN PRN Hypoglycemia Protocol Insulin Aspart 3 - 6 units 01/29/25 08:00 01/30/25 12:04 Insulin Aspart (*Bkc) 100 Units/Ml SUB-Q Not Given TIDWM LAKISHA Protocol Insulin Aspart 1 - 3 units 01/29/25 21:00 01/29/25 22:34 Insulin Aspart (*Bkc) 100 Units/Ml SUB-Q Not Given HS LAKISHA Protocol Irbesartan 75 mg 01/29/25 09:00 01/30/25 10:10 Irbesartan 75 Mg Tablet PO 75 mg DAILY LAKISHA Administration Isosorbide Mononitrate 30 mg 01/29/25 21:00 01/29/25 20:45 Isosorbide Mononitrate 30 Mg Tab.Er.24h PO 30 mg QHS LAKISHA Administration Loratadine 10 mg 01/29/25 09:00 01/30/25 08:14 Loratadine 10 Mg Tablet PO 10 mg DAILY LAKISHA Administration Melatonin 5 mg 01/29/25 21:00 01/29/25 20:44 Melatonin 5 Mg Tablet PO 5 mg QHS LAKISHA Administration Metoprolol Succinate 25 mg 01/29/25 09:00 01/30/25 08:13 Metoprolol Succinate Ext Rel 25 Mg Tabcr PO 25 mg DAILY LAKISHA Administration Midodrine 5 mg 01/30/25 17:00 Midodrine Hcl 2.5 Mg Tablet PO TID [facility] Miscellaneous Information 1 each 01/30/25 00:01 01/30/25 01:56 Prevalite Send To Pharmacy For Verification XX 03/01/25 00:00 Not Given CLARIFY LAKISHA Home Med 4 gram(s) 01/29/25 15:05 01/30/25 11:27 Prevalite 4 Gram(S) PO 02/28/25 15:04 Not Given DAILY@1000 [facility] Perflutren Lipid Microsphere 0 ml 01/28/25 21:20 Perflutren Lipid Microspheres 1.5 Ml Vial Diluted To 10 Ml Total Volume IV PUSH 01/31/25 21:21 ONCE PRN adequate visualization Protocol Sertraline HCl 25 mg 01/31/25 09:00 Sertraline Hcl 25 Mg Tablet PO QAM LAKISHA Tamsulosin HCl 0.4 mg 01/29/25 09:00 01/30/25 08:13 Tamsulosin Hcl 0.4 Mg Capsule PO 0.4 mg BID LAKISHA Administration Trazodone HCl 100 mg 01/28/25 21:20 01/28/25 22:12 Trazodone Hcl 50 Mg Tablet PO 100 mg HS PRN Administration Insomnia Radiology Results: ITS Impressions Chest X-Ray 01/28/25 18:08 IMPRESSION: Mild pulmonary vascular congestion, without focal infiltrate or effusion. Labs Labs: Laboratory Results - last 24 hr 01/29/25 01/30/25 01/30/25 21:11 07:29 11:23 POC Capillary Glucose 142 H 190 H 184 H 01/30/25 16:31 POC Capillary Glucose 175 H Quality VTE Prophylaxis VTE prophylaxis: mechanical ordered and pharmacologic ordered
[2025-01-30] MEDS: MIDODRINE HCL 2.5 MG TABLET 5 MG PO (16:56)
[2025-01-30] MEDS: CHOLESTYRAMINE 4 GM 4 EACH PO (17:50)
[2025-01-30] MEDS: MELATONIN 5 MG TABLET PO (20:40)
[2025-01-30] MEDS: ASPIRIN 81 MG ENTERIC TABLET PO (20:40)
[2025-01-30] MEDS: DONEPEZIL HCL 10 MG TABLET PO (20:41)
[2025-01-30] MEDS: HYDROcodone/acetaminophen (*CRX) 5-325 MG TABLET 1 TAB PO (20:41)
[2025-01-30] MEDS: ISOSORBIDE MONONITRATE 30 MG TAB.ER.24H PO (20:41)
[2025-01-31] VITALS (9 sets, daily range): BP systolic 125–150; BP diastolic 68–79; PULSE 64–103; RESP 18–20; TEMP 36.3; O2SAT 96–99
[2025-01-31] MEDS: LACTATED RINGERS 1,000 ML 125 ML IV CONT (00:23)
[2025-01-31] MEDS: TAMSULOSIN HCL 0.4 MG CAPSULE PO (09:09)
[2025-01-31] MEDS: SERTRALINE HCL 25 MG TABLET PO (09:09)
[2025-01-31] MEDS: EMPAGLIFLOZIN 25 MG TABLET PO (09:09)
[2025-01-31] MEDS: LORATADINE 10 MG TABLET PO (09:09)
[2025-01-31] MEDS: CLOPIDOGREL BISULFATE 75 MG TABLET PO (09:09)
[2025-01-31] MEDS: METOPROLOL SUCCINATE EXT REL 25 MG TABCR PO (09:09)
[2025-01-31] MEDS: ATORVASTATIN 40 MG TABLET 80 MG PO (09:10)
[2025-01-31] MEDS: IRBESARTAN 75 MG TABLET PO (09:10)
[2025-01-31] MEDS: MIDODRINE HCL 2.5 MG TABLET 5 MG PO ×2 (09:10→12:43)
[2025-01-31] MEDS: ENOXAPARIN 40 MG/0.4 ML SYRINGE SUB-Q (09:10)
--- NOTE | 2025-01-31 12:29 | P.DS_ITS ---
DS: Admitting Diagnosis Discharge Date 01/31/2025 Admitting Diagnosis Dizziness and lightheaded DS: Discharge Diagnosis Discharge Diagnosis (1) Depression: Code(s): F32.A - Depression, unspecified Status: Acute (2) Orthostatic hypotension: Code(s): I95.1 - Orthostatic hypotension Status: Acute DS: Summary Hospital Course Hospital Course: 79-year-old male with knee surgery 3 weeks ago presents the hospital with dizziness and lightheadedness. Patient states that he was going to the bathroom when he felt extremely dizzy and weak. He is staying with his daughter talon broussardently she took his blood pressure was 166/77 and then she checked his blood sugar the 1st reading was 462 then 140 been to 38. The patient states that he believes all of his symptoms are related to his diabetes. Right before the patient knee surgery he had a acute stressful event that is still ongoing. Patient has had a 22 lb weight loss in 3 weeks. He states that he is not very hungry and does admit to feeling depressed. Denies nausea, vomiting, fever chills diarrhea. Metoprolol was held, patient was startedon IVF, however orthostatic hypotension persisted and he was started on Midodrine 5mg bi . orthostatic hypotension much improved and patient noted symptoms have resolved. Patient discharged on Midodrine, Metoprolol discontinued. Psych was consulted on Depression and he was evaluated and started on Sertraline. Patient will follo wup with PCP in 3-5 days F/u with PSych as instructed Time Spent with Patient Time attestation: Total time spent providing and/or coordinating discharge services: DS: Data Data Completed and Pending Labs on day of discharge: Labs from last 24 hours 01/31/25 01/31/25 01/30/25 11:39 07:41 20:20 POC Capillary Glucose 132 H 111 H 151 H 01/30/25 16:31 POC Capillary Glucose 175 H Discharge Plan Discharge Attending physician on discharge: Chun Simon Consulting providers: Paras Jefferson Discharging Clinician: Chun Simon Anticipated Discharge Date/Time: 01/31/25 12:24 Patient Disposition: Home Activity: as tolerated Diet: as tolerated and diabetic Patient Instructions: Antibiotic Form, Heart Failure (GEN), Low-Sodium Diet (GEN), Left-sided and Right-sided Heart Failure (GEN) Patient Language: Georgian Stand Alone Forms: General Discharge Information Follow-up/Referrals: Erlinda,Jasvir [Other] (F/u with PCP in 3-5 days ) Paras Jefferson MD [Physician] - (F/u with Psych as instructed ) Discharge Medications: New midodrine 2.5 mg Tablet 5 mg PO TID 30 Days Qty: 180 0RF sertraline [Zoloft] 50 mg Tablet 25 mg PO QAM 30 Days Qty: 15 0RF Continued atorvastatin [Lipitor] 80 mg tablet 80 mg PO DAILY cetirizine [24Hour Allergy] 10 mg tablet 10 mg PO DAILY clopidogrel [Plavix] 75 mg tablet 75 mg PO DAILY Jardiance 25 mg tablet 25 mg PO DAILY irbesartan 75 mg tablet 75 mg PO DAILY metformin 1,000 mg tablet 1,000 mg PO DAILY omeprazole 40 mg capsule,delayed release(DR/EC) 40 mg PO DAILY tamsulosin 0.4 mg capsule 0.4 mg PO BID aspirin [Adult Low Dose Aspirin] 81 mg tablet,delayed release (DR/EC) 81 mg PO QHS cholecalciferol (vitamin D3) [Vitamin D3] 50 mcg (2,000 unit) capsule 50 mcg PO QHS mecobalamin (vitamin B12) 1,000 mcg lozenge 1,000 mcg PO QHS Rx Instructions: allow to dissolve in mouth OR may chew lightly before swallowing cyclobenzaprine 10 mg tablet 10 mg PO HS donepezil [Aricept] 10 mg tablet 10 mg PO HS isosorbide mononitrate 30 mg tablet extended release 24 hr 30 mg PO QHS melatonin 5 mg capsule 5 mg PO QHS hydrocodone-acetaminophen 5-325 mg tablet 1 tablet PO Q4H PRN (Reason: pain) Discontinued metoprolol succinate 25 mg tablet extended release 24 hr 25 mg PO DAILY Date of admission: 01/29/25 10:46 Primary Care Provider: GriseldaJasvir Admitting Provider: Chun Simon Attending physician on admission: Chun Simon Condition: Stable
== END 2025-01-31 13:10 | disposition home or self-care (01) | DRG 312 ==
LOC: ANHED 17:44 → ANH3MEDSUR 18:21
PROVIDERS: Nurse Practitioner Gerontology; Admitting Provider Internal Medicine; Emergency Provider Emergency Medicine; Visit Provider Internal Medicine
DX: I95.1 Orthostatic hypotension (principal); F33.2 Major depressive disorder, recurrent severe without psychotic features; I25.9 Chronic ischemic heart disease, unspecified; E11.9 Type 2 diabetes mellitus without complications; F03.90 Unspecified dementia, unspecified severity, without behavioral disturbance, psychotic disturbance, mood disturbance, and anxiety; N40.0 Benign prostatic hyperplasia without lower urinary tract symptoms; R63.4 Abnormal weight loss; G47.00 Insomnia, unspecified; Z79.84 Long term (current) use of oral hypoglycemic drugs; Z79.02 Long term (current) use of antithrombotics/antiplatelets; Z79.82 Long term (current) use of aspirin
CPT/HCPCS: 36415; 71045; 80048; 80053; 81003; 82010; 82948; 83036; 83880; 85025; 85610; 85730; 93005; 93306; 96360; 96372; 96375; 97161; 97165; 99285; A9270; G0378; J1650; J7120

== ENCOUNTER 2025-02-14 03:45 | Emergency (ER) | payer MEDICARE, OTHER, SELFPAY ==
--- OUTSIDE RECORDS SUMMARY | 2025-02-02 03:30 | XMS_ITS | Encounter Summary ---
Author Name [facility] [place] [facility] [place] [facility] [place] Address [address] [place] [address] Care Team Providers Care Finance Controller Name Role Phone KARON GARCIA Primary Care [...] B EXC) MAXIMO PALMA Jul 22, 2023 [id number] [phone] GABBI,GE DELONTE PATIENT [employer] PREFERRED PROVIDER ORGANIZAT ION (PPO) MAXIMO PALMA Apr 22, 2023 [id number] [phone] GABBI,RUSSELL MARTEL PATIENT [employer] PREFERRED PROVIDER ORGANIZAT ION (PPO) MAXIMO PALMA Jun 23, 2014 [id number] GABBIRUSSELL RUSHTrudy PATIENT [employer] PHARMACY PRESCRIPT ION NONE Feb 11, 2017 NONE [id number] RUSSELL SEO PATIENT [employer] PHARMACY PRESCRIPT ION NONE Feb 11, 2017 NONE [id number] RUSSELL SEO PATIENT [employer]ETNA RX PRESCRIPT ION RX PLAN Jun 23, 2021 [id number] RUSSELL SEO PATIENT AETNA RX PRESCRIPT ION RX PLAN Jun 23, 2021 [id number] RUSSELL SEO PATIENT [employer]ETNA RX PRESCRIPT ION FEHBP Jun 23, 2014 [id number] [phone] RUSSELL SEO PATIENT AETNA [facility] PREFERRED PROVIDER ORGANIZAT ION (PPO) MAXIMO PALMA Jun 23, 2014 [id number] RUSSELL SEO PATIENT MEDICARE (WNR) MEDICARE () PART B May 23, 2008 PART B [id number] RUSSELL SEOD PATIENT MEDICARE (WNR) MEDICARE () PART B May 23, 2008 PART B [id number] RUSSELL SEOD PATIENT MEDICARE (WNR) MEDICARE () PART A Apr 23, 2008 PART A [id number] RUSSELL SEOD PATIENT MEDICARE (WNR) MEDICARE () PART A Apr 23, 2008 PART A [id number] RUSSELL SEOD PATIENT MEDICARE (WNR) MEDICARE () PART A Apr 23, 2008 PART A [id number] [phone] RUSSELL SEOD PATIENT MEDICARE (WNR) MEDICARE () PART B Apr 23, 2008 PART B [id number] [phone] RUSSELL SEO PATIENT Selected Encounter This section includes the information on record at [place] for the Encounter. Date/Time Encounter Type Encounter Description Reason Provider Source Feb 02, 2025 08:30 AM OFFICE O/P EST MOD 30 MIN PRIMARY CARE/MEDICINE ICD-10-CM I25.83 Coronary atherosclerosis due to lipid rich plaque BRAYAN,VINAY MCHUGH Encounter Template Text not used by [place] Assessments - Encounter Diagnoses This section includes the primary and secondary diagnoses documented for the Encounter. Date/Time Primary/Secondary Diagnosis Diagnosis Name Provider Source Feb 10, 2025 03:25 PM PRIMARY Coronary atherosclerosis due to lipid rich plaque SAMPLES,VINAY SMART CYNDI [facility] Feb 10, 2025 03:25 PM SECONDARY Essential (primary) hypertension SAMPLES,VINAY SMART CYNDI [facility] Feb 10, 2025 03:25 PM SECONDARY Type 2 diabetes mellitus with diabetic neuropathy, unsp SAMPLES,VINAY BING HANNA [facility] Plan of Treatment: Future Appointments (+ 6 months) and Future Tests (+/- 45 days) The Plan of Treatment section includes future care activities for the patient from [facility] [place] [facility] This section includes future appointments and future orders which are active, pending or scheduled. Future Appointments This section includes appointments that were scheduled to occur 6 months from the date of the Encounter, up to a maximum of 20 appointments. The data comes from all [place] treatment [facility]. Appointment Date/Time Appointment Type Appointme nt Facility Name Feb 17, 2025 10:30 AM [facility] Feb 17, 2025 01:00 PM [facility] - SUR[facility] Mar 24, 2025 02:30 PM AMBULATORY - MEDICINE [facility] Active, Pending, and Scheduled Orders This section includes a listing of several types of active, pending, and scheduled orders, including clinic medications orders, diagnostic test orders, procedure orders and consult orders; where the start date of the order is 45 days before the date of the Encounter or 45 days after the date of theEncounter. The data comes from all [facility]. Test Date/Time Test Type Test Details Facility Name Feb 11, 2025 03:28 PM Consult Order PROSTHETIC S REQUEST - COMPRESSION STOCKINGS ST[facility] Cons Talend Developer's Choice [facility] Feb 17, 2025 12:00 AM Laboratory - Chemistry Order BASIC METABOLIC PANEL GREEN LI/HEP BLD/PLAS PLASMA [facility] Feb 17, 2025 12:00 AM Laboratory - Chemistry Order CBC BLOOD [facility] Lab Results: +/- 30 days of the encounter This section includes the Chemistry and Hematology Lab Results on record with [place] for the patient. Radiology Reports and Pathology Reports are provided separately, in subsequent sections. Lab Results This section contains the Chemistry/Hematology Results that were resulted 30 days before or 30 daysafter the date of the Encounter. Date/Time Source Result Type Result - Unit Interpretation Reference Range Specimen Type Comment Feb 02, 2025 09:30 AM [facility] HGA1C BLOOD Specimen Type: BLOOD No comment entered. Ordering Provider: STEVEN SCHMIDT Report Released Date/Time: Feb 02, 2025 09:20 AM Reporting Lab: [address] [address] Performing Lab: [address] [id number] HGA1C 6.5 H 4.0-6.0 Feb 02, 2025 09:30 AM [facility] BASIC METABOLIC PANEL PLASMA Specimen Type: PLASMA Comment: No hemolysis noted. Ordering Provider: STEVEN SCHMIDT Report Released Date/Time: Feb 02, 2025 09:20 AM Reporting Lab: [address] [address] Performing Lab: [address] [address] CREATININE 1.15 mg/dL 0.7-1.3 UREA NITROGEN 17.9 mg/dL 9.0-25.0 GLUCOSE 185 mg/dL H 72-99 SODIUM 133 meq/L L 136-145 POTASSIUM 4.3 meq/L 3.5-5 CHLORIDE 103 meq/L 98-107 CARBON DIOXIDE 16 meq/L L 22-31 CALCIUM 9.5 mg/dL 8.4-10.4 EGFR (CKD-EPI 2020) 63.9 >60 Feb 02, 2025 09:30 AM [facility] CBC BLOOD Specimen Type: BLOOD No comment entered. Ordering Provider: STEVEN SCHMIDT Report Released Date/Time: Feb 02, 2025 09:20 AM Reporting Lab: [address] [address] Performing Lab: [address] [address] WBC 13.7 10*3/uL H 3.6-11.2 RBC 4.36 10*6/uL 4.10-5.70 HGB 13.9 g/dL 13.1-16.8 HCT 42.2 38.2-48.4 MCV 96.8 fL 80.0-100.0 MCH 31.9 pg 27.0-34.0 MCHC 32.9 g/dL L 33.0-36.0 PLT 244 10*3/uL 150-400 MPV 10.2 fL 7.5-11.2 RDW 12.9 11.8-15.1 NEUTROPHILS 88.5 MONOCYTES 4.4 POIKILOCYTOSIS 1+ TRACEY CELLS 1+ PAPPENHEIMER BODIES 0 LYMPHOCYTES 5.3 ATYPICAL LYMPHOCYTES 1.8 PLT EST-CV ADEQUATE ADEQUATE MONO#-MDIFF 0.60 10*3/uL 0.19-0.80 LYMPH#-MDIFF 0.97 10*3/uL 0.77-4.50 NEUT#-MDIFF 12.12 10*3/uL H 2.10-8.00 Vital Signs: All taken on the encounter date This section contains inpatient and outpatient Vital Signs collected on the date of the Encounter. Date/Time Temperature Pulse Blood Pressure Respiratory Rate SP02 Pain Height Weight Body Mass Index Source Feb 02, 2025 08:39 AM 98.1 F 106 /min 96/57 mm[Hg] 20 /min 96 % 2 72 in 214 lb 29 [facility] Social History: Smoking Status (Most current) and Tobacco Use (All prior to encounter date) This section includes the most current, and the historical, smoking and tobacco- related health factors from the [place] facility where the Encounter took place. Current Smoking Status This section includes the most current smoking, or tobacco-related health factor, from the [place] facility where the Encounter took place. Date/Time Current Smoking Status Comment Belinda [email or web address] Mar 26, 2024 10:30 AM [place]-TOBACCO NEVER USED [facility] Tobacco Use History This section includes a history of the smoking, or tobacco-related health factors, that were collected on or before the date of the Encounter. The data comes from the [place] facility where the Encounter took place. Date/Time Smoking Status/Tobacco Use Comment F [email or web address] Feb 10, 2023 09:00 AM [place]-TOBACCO NEVER USED [facility] Advance Directives: All historical and current Section Date Range: From patient's date of to the date document was created. This section includes ALL of a patient's completed or amended [place] Advance and Rescinded Directives. The entries below indicate that a directive exists for the patient, but an actual copy is not included with this document. The data comes from all [place] facilities. Date Advance Directives Provider Source Jan 14, 2022 ADVANCE DIRECTIVE DISCUSSION SHEA WINTER [facility] Encounter Notes: All associated encounter notes This section contains the clinical notes associated to the Encounter. Date/Time Encounter Note(s) Provider Source Feb 02, 2025 08:42 AM NURSING NOTE: LOCAL TITLE: V15 PACT FACE TO FACE NOTE ST STANDARD TITLE: NURSING NOTE DATE OF NOTE: FEB 02, 2025@08:42 ENTRY DATE: FEB 02, 2025@08:42:43 AUTHOR: OSCAR NAILS COSIGNER: URGENCY: STATUS: COMPLETED Provider Visit: Patient Identifiers : Full Name Date of Reason for visit: Other: hospital follow up Mode of Arrival: Assistive Device: cane Allergy Review: ALLERGIES/ADVERSE REACTIONS - NONE FOUND Allergy list reviewed and remains current. Recent Vital Signs: Temperature: 98.1 F [36.7 C] (02/02/2025 08:39) Pulse: 106 (02/02/2025 08:39) Respiration: 20 (02/02/2025 08:39) B/P: 96/57 (02/02/2025 08:39) Pain: 2 (02/02/2025 08:39) Wt: 214 lb [97.07 kg] (02/02/2025 08:39) Ht: 72 in [182.9 cm] (02/02/2025 08:39) BMI: 29.1 POX: 96% (02/02/2025 08:39) Would you like to discuss any personal problem, family problem, alcohol use, drug use, or a mental or emotional illness? No Contact provided Primary Care phone number and encouraged to call if any questions or concerns. Review that after hours nurse line [phone] and emergency room are available 13/01 for patient use. Contact verbalized good understanding. COVID-19 Immunization - L,N,P,PH,U: Refused Pfizer Monovalent COVID-19 vaccine Immunization: COVID-19 (PFIZER), MRNA, LNP-S, PF, BEKAH-SUCROSE, 30 MCG/0.3 ML (AGES 12+ YEARS) Refusal Reason: PATIENT DECISION Patient refuses all immunization(s) in the COVID-19 group Date Documented: 02/02/25 08:44 Alcohol Use Screen (AUDIT-C) - V: Alcohol Screen: SCREEN FOR ALCOHOL (AUDIT-C) An alcohol screening test (AUDIT-C) was negative (score=0). 1. How often did you have a drink containing alcohol in the past year? Consider a drink to be a 12 ounce can or bottle of regular beer, 8 ounces of malt liquor, a 5 ounce glass of table wine, or a 1.5 ounce shot of liquor (like scotch, gin, or vodka). Never 2. How many drinks containing alcohol did you have on a typical day when you were drinking in the past year? Response not required due to responses to other questions. 3. How often did you have six or more drinks on one occasion in the past year? Response not required due to responses to other questions. Depression Screening - V: Perform PHQ-2 A PHQ-2 screen was performed. The score was 6 which is a positive screen for depression. Over the past two weeks, how often have you been bothered by the following problems? 1. Little interest or pleasure in doing things Nearly every day 2. Feeling down, depressed, or hopeless Nearly every day Licensed Independent Provider notified of positive screen and need for follow-up. Name of provider notified: [employer]PARER Brayan RIOS Foot Check - L,N,P,PH,PO,PT,U: Patient declined limb care exam. Comment: already had one 3 months ago The patient was advised the [facility] mandates all patients with diabetes mellitus, end stage renal disease, peripheral vascular disease, or sensory neuropathy should have a complete foot check completed annually. This includes a visual exam of the skin, pedal pulses and a sensory exam. Patients with any abnormality noted during the foot check should be referred to a specialist. Tdap Immunization - L,N,P,PH,U: The patient declines to receive the recommended dose of Tdap vaccine. Immunization: TDAP Refusal Reason: PATIENT DECISION Patient refuses all immunization(s) in the TDAP group Date Documented: 02/02/25 08:46 /leobardo/ OSCAR NAILS LPN LICENSED PRACTICAL NURSE Signed: 02/02/2025 08:47 [facility] Feb 02, 2025 08:42 AM PRIMARY CARE NOTE: LOCAL TITLE: PRIMARY CARE PROVIDER ESTABLISHED VISIT [facility] STANDARD TITLE: PRIMARY CARE NOTE DATE OF NOTE: FEB 02, 2025@08:42 ENTRY DATE: FEB 02, 2025@08:42:55 AUTHOR: STEVEN SCHMIDT COSIGNER: URGENCY: STATUS: COMPLETED Patient is 79 and WHITE Self Identified Gender - Man Reason for visit:Scheduled follow-up Chief Complaint: Pt here today for post hospital follow up, was admitted to [facility] twice for symptomatic low blood pressure. Inititally went to ER because of BS of 462 History of Present Illness: 79 year old Problem List: 1) Coronary artery disease 2) Hyperlipidemia 3) Benign essential hypertension 4) Diabetic neuropathy with neurologic complication 5) Abdominal aortic aneurysm 6) Gastroesophageal reflux disease 7) Knee pain 8) Callous character 9) Colonic fistula Immunization: ADMINISTERED Immunization Series Date Facility Reaction Info COVID-19 (MODERNA), MRNA, LNP-S,* 2 08/10/2020 [facility] COVID-19 (MODERNA), MRNA, LNP-S,* 1 07/13/2020 [facility] INFLUENZA, HIGH-DOSE, QUADRIVALE* 1 03/29/2020 [facility] INFLUENZA, HIGH-DOSE, TRIVALENT,* 1 04/10/2018 [facility] INFLUENZA, SPLIT VIRUS, QUADRIVA* 1 04/01/2019 [facility] INFLUENZA, SPLIT VIRUS, TRIVALEN* 2 04/21/2018 [facility] PNEUMOCOCCAL CONJUGATE PCV 13 1 04/01/2019 [facility] PNEUMOCOCCAL POLYSACCHARIDE PPV23 2 01/24/2021 [facility] TD (ADULT), 2 LF TETANUS TOXOID,* 1 07/07/2007 [facility] ZOSTER RECOMBINANT 2 05/13/2022 No Site <C> [...] text History: Service Connected: 60% Rated Disabilities: LIMITED FLEXION OF KNEE (10% SC) IMPAIRED HEARING (30% SC) 2ND DEGREE B[place] (0% SC) TINNITUS (10% SC) HIP PROSTHESIS (30% SC) LIMITED MOTION OF ARM (0% SC) [...] (D3-2,000UNIT) TAB TAKE ONE TABLET BY ACTIVE (S) MOUTH ONCE A DAY Indication: FOR VITAMIN [...] ONE CAP/TAB BY MOUTH AT BEDTIME ACTIVE (S) Indication: FOR SLEEP 18) METFORMIN HCL 1000MG [...] EACH DAY Indication: FOR BENIGN PROSTATIC HYPERPLASIA Data Review: HGA1C 7.4 H % 09/22/2024 11:30 ======= Lipid Panel: TRIGLYCERIDE 171 H mg/dL 09/22/2024 11:30 CHOLESTEROL 185 mg/dL 09/22/2024 11:30 HDL(New) 36 L mg/dL 09/22/2024 11:30 CALCULATED LDL 115 mg/dL 09/22/2024 11:30 ======= CMP: SODIUM 136 mEq/L 09/22/2024 11:30 POTASSIUM 4.2 mEq/L 09/22/2024 11:30 CHLORIDE 107 mEq/L 09/22/2024 11:30 UREA NITROGEN 15.7 mg/dL 09/22/2024 11:30 CREATININE 1.01 mg/dL 09/22/2024 11:30 CALCIUM 9.1 mg/dL 09/22/2024 11:30 PROTEIN 6.5 g/dL 09/22/2024 11:30 ALBUMIN 3.5 g/dL 09/22/2024 11:30 ALKALINE PHOSPHATASE 146 U/L 09/22/2024 11:30 ALT/SGPT 16 U/L 09/22/2024 11:30 AST/SGOT 16 U/L 09/22/2024 11:30 TOTAL BILIRUBIN 0.6 mg/dL 09/22/2024 11:30 CARBON DIOXIDE 23 mEq/L 09/22/2024 11:30 GLUCOSE 217 H mg/dL 09/22/2024 11:30 EGFR (CKD-EPI 2020) 74.7 09/22/2024 11:30 ======= CBC: WBC 5.0 10*3/uL 09/22/2024 11:30 RBC 4.54 10*6/uL 09/22/2024 11:30 HGB 14.7 g/dL 09/22/2024 11:30 HCT 43.5 % 09/22/2024 11:30 MCV 95.8 fL 09/22/2024 11:30 MCH 32.4 pg 09/22/2024 11:30 MCHC 33.8 g/dL 09/22/2024 11:30 RDW 12.1 % 09/22/2024 11:30 PLT 242 10*3/uL 09/22/2024 11:30 MPV 10.5 fL 09/22/2024 11:30 NEUTROPHILS, AUTO % 58 % 09/22/2024 11:30 LYMPHOCYTES, AUTO % 32 % 09/22/2024 11:30 MONOCYTES, AUTO % 7 % 09/22/2024 11:30 EOSINOPHILS, AUTO % 3 % 09/22/2024 11:30 BASOPHILS, AUTO % 1 % 09/22/2024 11:30 NEUTROPHILS, ABSOLUTE 2.87 10*3/uL 09/22/2024 11:30 LYMPHOCYTES, ABSOLUTE 1.60 10*3/uL 09/22/2024 11:30 MONOCYTES, ABSOLUTE 0.35 10*3/uL 09/22/2024 11:30 EOSINOPHILS, ABSOLUTE 0.13 10*3/uL 09/22/2024 11:30 BASOPHILS, ABSOLUTE 0.03 10*3/uL 09/22/2024 11:30 ======= PSA: No PSA EO data found ======= TSH: TSH 2.029 uIU/mL 09/22/2024 11:30 ======= UA: URINE COLOR Light-Yellow 07/23/2023 11:50 APPEARANCE Clear 07/23/2023 11:50 U.PH 6.5 07/23/2023 11:50 U.BILIRUBIN Negative mg/dL 07/23/2023 11:50 U.NITRITE Negative mg/dL 07/23/2023 11:50 ======= Vitamin D: VITAMIN D, 25-HYDROXY 23.7 L ng/mL 09/22/2024 11:30 ======= Micral/Creat Profile: CREATuF: 158.4 (09/22/24 11:30) M/CREAT: 5 (09/22/24 11:30) MICRAL: 7.6 (09/22/24 11:30) ======= Result: Within target range Follow-up Action: Data results reviewed with patient [...] SIGNS DETAILED DISPLAY Date Vital Measurement Qualifiers 02/02/2025 08:39 Temp F (C) 98.1 (36.7) Pulse 106 Respir 20 BP 96/57 Ht in (cm) 72 (182.88) Wt lbs (kg)[BMI] 214 (97.07)[29*] Pain 2 POx (L/Min)(%) 96 VITAL SIGNS SELECTED No selection items chosen for this component. General: WD, WN in NAD, pleasant affect Skin: no lesions or rashes noted. HEENT: NC/AT, PERRL, EOMI, no scleral icterus, TMs intact, posterior pharynx is clear, no tonsillar adenopathy Neck: Supple, no cervical ARTHUR, no thyromegaly or goiters palpated. Lungs: CTA bilat, no W/R/R Heart: Irreg, nl S1/S2, no murmurs, no S3/S4 gallops. Abdomen: Soft, NT/ND. No HSM or masses palpated. Musculoskeletal: 2+ deep tendon reflexes bilaterally, 5/5 motor and sensory intact of UE/LE Back: Normal curvature and mobility. No CVA tenderness. Extremities: No edema, pedal pulses intact Assessment/Plan: 1. Htn/hypotension- midodrine ordered (started in hospital) metoprolol and irbesartan dc'd (was stopped by Dr. Coffey). Home telehealth consult placed, advised increasing fluids 2. Hyperglycemia- advised decreasing carbohydrates. Candice Mckeon please assist, thanks. 3. Irregular heart rhythm- ekg ordered RTC:as prev sched Time spent on date of visit including face to face time, data review, and chartin min CLINICAL REMINDERS COMPLETED /leobardo/ STEVEN SCHMIDT MSN, BARREL CAP SETTER, CHIEF BUSINESS OFFICER- NURSE PRACTITIONER Signed: 02/02/2025 09:20 SAMPLES,STEVEN DOUGLAS OC
--- OUTSIDE RECORDS SUMMARY | 2025-02-02 04:20 | XMS_ITS | Encounter Summary ---
Author Name [facility] [place] [facility] [place] Address [address] [place] [address] Care Team Providers Care Hide Tanner Name Role Phone KARON GARCIA Primary Care [...] B EXC) MAXIMO PALMA Jul 22, 2023 [id number] GABBIRUSSELL PATIENT [employer]ETNA PREFERRED PROVIDER ORGANIZAT ION (PPO) MAXIMO PALMA Apr 22, 2023 [id number] GABBIRUSSELL PATIENT AETNA PREFERRED PROVIDER ORGANIZAT ION (PPO) MAXIMO PALMA Jun 23, 2014 [id number] GABBIRUSSELL RUSHTrudy PATIENT AETNA PHARMACY PRESCRIPT ION NONE Feb 11, 2017 NONE [id number] [phone] RUSSELL SEO PATIENT AETNA PHARMACY PRESCRIPT ION NONE Feb 11, 2017 NONE [id number] RUSSELL SEO PATIENT AETNA RX PRESCRIPT ION RX PLAN Jun 23, 2021 [id number] RUSSELL SEO PATIENT AETNA RX PRESCRIPT ION RX PLAN Jun 23, 2021 [id number] RUSSELL SEO PATIENT AETNA RX PRESCRIPT ION FEHBP Jun 23, 2014 [id number] RUSSELL SEO PATIENT AETNA [facility] PREFERRED PROVIDER ORGANIZAT ION (PPO) MAXIMO PALMA Jun 23, 2014 [id number] RUSSELL SEO PATIENT MEDICARE (WNR) MEDICARE () PART B May 23, 2008 PART B [id number] RUSSELL SEOD PATIENT MEDICARE (WNR) MEDICARE () PART B May 23, 2008 PART B [id number] [phone] RUSSELL SEOD PATIENT MEDICARE (WNR) MEDICARE () PART A Apr 23, 2008 PART A [id number] RUSSELL SEOD PATIENT MEDICARE (WNR) MEDICARE () PART A Apr 23, 2008 PART A [id number] RUSSELL SEOD PATIENT MEDICARE (WNR) MEDICARE () PART A Apr 23, 2008 PART A [id number] RUSSELL SEOD PATIENT MEDICARE (WNR) MEDICARE () PART B Apr 23, 2008 PART B [id number] [phone] RUSESLL SEO PATIENT Selected Encounter This section includes the information on record at [place] for the Encounter. Date/Time Encounter Type Encounter Description Reason Provider Source Feb 02, 2025 09:20 AM OFFICE O/P EST HI 40 MIN PRIMARY CARE/MEDICINE ICD-10-CM I25.83 Coronary atherosclerosis due to lipid rich plaque BRAYAN,VINAY MCHUGH Encounter Template Text not used by [place] Assessments - Encounter Diagnoses This section includes the primary and secondary diagnoses documented for the Encounter. Date/Time Primary/Secondary Diagnosis Diagnosis Name Provider Source Feb 02, 2025 01:29 PM PRIMARY Coronary atherosclerosis due to lipid rich plaque BRAYAN,VINAY HANNA [facility] Plan of Treatment: Future Appointments (+ [...] 17, 2025 10:30 AM [facility] Feb 17, 2025 01:00 PM AMBULATORY - SURGERY [facility] Mar 24, 2025 02:30 PM AMBULATORY - MEDICINE [facility] Active, Pending, and Scheduled Orders This section includes a listing of several types of active, pending, and scheduled orders, including clinic medications orders, diagnostic test orders, procedure orders and consult orders; where the start date of the order is 45 days before the date of the Encounter or 45 days after the date of theEncounter. The data comes from all [facility]. Test Date/Time Test Type Test Details Facility Name Feb 11, 2025 03:28 PM Consult Order PROSTHETIC S REQUEST - COMPRESSION STOCKINGS STL Cons Marine Equipment Engineer's Choice [facility] Feb 17, 2025 12:00 AM Laboratory - Chemistry Order BASIC METABOLIC PANEL GREEN LI/HEP BLD/PLAS PLASMA [facility] Feb 17, 2025 12:00 AM Laboratory - Chemistry Order CBC BLOOD [facility] Lab Results: +/- 30 days [...] Type Comment Feb 02, 2025 09:30 AM [facility] HGA1C BLOOD Specimen Type: BLOOD No comment entered. Ordering Provider: STEVEN SCHMIDT Report Released Date/Time: Feb 02, 2025 09:20 AM Reporting Lab: [address] [address] Performing Lab: [address] [address] HGA1C 6.5 H 4.0-6.0 Feb 02, 2025 09:30 AM [facility] BASIC METABOLIC PANEL PLASMA Specimen Type: PLASMA Comment: No hemolysis noted. Ordering Provider: STEVEN SCHMIDT Report Released Date/Time: Feb 02, 2025 09:20 AM Reporting Lab: [address] [address] Performing Lab: [address] [address] CREATININE 1.15 mg/dL 0.7-1.3 UREA NITROGEN 17.9 mg/dL 9.0-25.0 GLUCOSE 185 mg/dL H 72-99 SODIUM 133 meq/L L 136-145 POTASSIUM 4.3 meq/L 3.5-5 CHLORIDE 103 meq/L 98-107 CARBON DIOXIDE 16 meq/L L 22-31 CALCIUM 9.5 mg/dL 8.4-10.4 EGFR (CKD-EPI 2020) 63.9 >60 Feb 02, 2025 09:30 AM [facility] CBC BLOOD Specimen Type: BLOOD No comment entered. Ordering Provider: STEVEN SCHMIDT Report Released Date/Time: Feb 02, 2025 09:20 AM Reporting Lab: [address] [address] Performing Lab: [address] [address] WBC 13.7 10*3/uL H 3.6-11.2 RBC 4.36 [...] and tobacco- related health factors from the [place] facility where the Encounter took place. Current Smoking Status This section includes the most current smoking, or tobacco-related health factor, from the [place] facility where the Encounter took place. Date/Time Current Smoking Status Comment Belinda ity Mar 26, 2024 10:30 AM [place]-TOBACCO NEVER USED [facility] Tobacco Use History This section includes a history of the smoking, or tobacco-related health factors, that were collected on or before the date of the Encounter. The data comes from the [place] facility where the Encounter took place. Date/Time Smoking Status/Tobacco Use Comment F acyordy Feb 10, 2023 09:00 AM [place]-TOBACCO NEVER USED [facility] Advance Directives: All historical and current [...] Encounter Note(s) Provider Source Feb 02, 2025 01:27 PM ADDENDUM: LOCAL TITLE: Addendum STANDARD TITLE: ADDENDUM DATE OF NOTE: FEB 02, 2025@13:27:18 ENTRY DATE: FEB 02, 2025@13:27:19 AUTHOR: STEVEN SCHMIDT COSIGNER: URGENCY: STATUS: COMPLETED Pt now off Metoprolol, sees Dr. Coffey in [place], [place], please send copy of EKG to Dr. Coffey, kj /es/ STEVEN SCHMIDT MSN, CANCER CENTER DIRECTOR, OFFICE NURSE-BC NURSE PRACTITIONER Signed: 02/02/2025 13:29 Receipt Acknowledged By: 02/02/2025 15:54 /es/ RONNY PERALTA, MSN, RN REGISTERED NURSE --- Original Document --- 02/02/25 EKG CONSULT STL: DOCUMENT IN [employer] SEE FULL REPORT IN VISTA IMAGING SIGNATURE NOT REQUIRED SEE SIGNATURE IN VISTA IMAGING ([place] EKG) AUTO-INSTRUMENT DIAGNOSIS Procedure: [id number] 12 Lead ECG Release Status: Released Off-Line Verified Date Verified: Feb 02, 2025@11:21:51 80435.2 Ventricular Rate: 110 BPM 87781.3 Atrial Rate: 110 BPM 40604.4 P-R Interval: 244 ms 28153.5 QRS Duration: 86 ms 03142.6 Q-T Interval: 292 ms 45696 QTC Calculation(Bazett)395 ms 93403.12 Calculated P [place]: 35 degrees 32970.13 Calculated R [place]: 8 degrees 79435.14 Calculated T [place]: -39 degrees Sinus tachycardia with 1st degree A-V block with occasional Premature ventricular complexes Cannot rule out Anterior infarct , age undetermined Abnormal ECG When compared with ECG of 01-MAR-2024 13:17, Premature ventricular complexes are now Present Vent. rate has increased BY 44 BPM Questionable change in The axis ST now depressed in Lateral leads Administrative Closure: 02/02/2025 by: DEVICE PROXY SERVICE CLINICAL CLINICAL,DEVICE PROXY SERVICE STEVEN SCHMIDT CB Feb 02, 2025 11:21 AM CARDIOLOGY DIAGNOS TIC STUDY CONSULT: LOCAL TITLE: EKG CONSULT STL STANDARD TITLE: CARDIOLOGY DIAGNOSTIC STUDY CONSULT DATE OF NOTE: FEB 02, 2025@11:21:52 ENTRY DATE: FEB 02, 2025@11:21:52 AUTHOR: CLINICAL,DEVICE PRO EXP COSIGNER: URGENCY: STATUS: COMPLETED EKG CONSULT STL Has ADDENDA DOCUMENT IN VISTA IMAGING SEE FULL REPORT IN VISTA IMAGING SIGNATURE NOT REQUIRED SEE SIGNATURE IN VISTA IMAGING ([place] EKG) AUTO-INSTRUMENT DIAGNOSIS Procedure: [id number] 12 Lead ECG Release Status: Released Off-Line Verified Date Verified: Feb 02, 2025@11:21:51 94041.2 Ventricular Rate: 110 BPM 27958.3 Atrial Rate: 110 BPM 66582.4 P-R Interval: 244 ms 86357.5 QRS Duration: 86 ms 79114.6 Q-T Interval: 292 ms 43100 QTC Calculation(Bazett)395 ms 79900.12 Calculated P [place]: 35 degrees 44811.13 Calculated R [place]: 8 degrees 85533.14 Calculated T [place]: -39 degrees Sinus tachycardia with 1st degree A-V block with occasional Premature ventricular complexes Cannot rule out Anterior infarct , age undetermined Abnormal ECG When compared with ECG of 01-MAR-2024 13:17, Premature ventricular complexes are now Present Vent. rate has increased BY 44 BPM Questionable change in The axis ST now depressed in Lateral leads Administrative Closure: 02/02/2025 by: DEVICE PROXY SERVICE CLINICAL CLINICAL,DEVICE PROXY SERVICE 02/02/2025 ADDENDUM STATUS: COMPLETED Pt now off Metoprolol, sees Dr. Coffey in [place], please send copy of EKG to Dr. Coffey, kj /leobardo/ STEVEN SCHMIDT MSN, CANCER CENTER DIRECTOR, OFFICE NURSE-BC NURSE PRACTITIONER Signed: 02/02/2025 13:29 Receipt Acknowledged By: * AWAITING SIGNATURE * RONNY PERALTA CLINICAL,DEVICE PROXY SERVICE [facility]
--- OUTSIDE RECORDS SUMMARY | 2025-02-03 05:03 | XMS_ITS ---
Author Name [facility] [facility] [place] [facility] [place] Address [address] [place] [address] Care Team Providers Care Manager Alliance Name Role Phone KARON GARCIA Primary Care [...] B EXC) MAXIMO PALMA Jul 22, 2023 [id number] [phone] GABBI,RUSSELL MARTEL PATIENT AETNA PREFERRED PROVIDER ORGANIZAT ION (PPO) MAXIMO PALMA Apr 22, 2023 [id number] GABBIRUSSELL DELONTE PATIENT AETNA PREFERRED PROVIDER ORGANIZAT ION (PPO) MAXIMO PALMA Jun 23, 2014 [id number] RUSSELL SEOTrudy PATIENT AETNA PHARMACY PRESCRIPT ION NONE Feb 11, 2017 NONE [id number] RUSSELL SEO PATIENT AETNA PHARMACY PRESCRIPT ION NONE Feb 11, 2017 NONE [id number] [phone] RUSSELL SEO PATIENT AETNA RX PRESCRIPT ION RX PLAN Jun 23, 2021 [id number] RUSSELL SEO PATIENT AETNA RX PRESCRIPT ION RX PLAN Jun 23, 2021 [id number] RUSSELL SEO PATIENT AETNA RX PRESCRIPT ION FEHBP Jun 23, 2014 [id number] RUSSELL SEO PATIENT AETNA [facility] PREFERRED PROVIDER ORGANIZAT ION (PPO) MAXIMO PALMA Jun 23, 2014 [id number] RUSSELL SEO PATIENT MEDICARE (WNR) MEDICARE ([place]) PART B May 23, 2008 PART B [id number] RUSSELL SEO PATIENT MEDICARE (WNR) MEDICARE (M) PART B May 23, 2008 PART B [id number] RUSSELL SEOD PATIENT MEDICARE (WNR) MEDICARE (M) PART A Apr 23, 2008 PART A [id number] RUSSELL SEOD PATIENT MEDICARE (WNR) MEDICARE (M) PART A Apr 23, 2008 PART A [id number] RUSSELL SEOD PATIENT MEDICARE (WNR) MEDICARE (M) PART A Apr 23, 2008 PART A [id number] RUSSELL SEOD PATIENT MEDICARE (WNR) MEDICARE ([place]) PART B Apr 23, 2008 PART B [id number] [phone] RUSSELL SEO PATIENT Selected Encounter This section includes the information on record at [place] for the Encounter. Date/Time Encounter Type Encounter Description Reason Provider Source Feb 03, 2025 10:03 AM Outpatient Encounter ADMIN PAT ACTIVTIES (MASNONCT) THOMAS TERRELL Encounter Template Text not used by [facility] Plan of Treatment: Future Appointments (+ 6 months) and Future Tests (+/- 45 days) The Plan of Treatment section includes future care activities for the patient from all [place] treatmentfacilities. This section includes future appointments and [...] 17, 2025 10:30 AM [facility] Feb 17, 2025 01:00 PM AMBULATORY - SURGERY [facility] Mar 24, 2025 02:30 PM [...] S REQUEST - COMPRESSION STOCKINGS STL Cons Trailer Mechanic's Choice [facility] Feb 17, 2025 12:00 AM Laboratory - Chemistry Order BASIC METABOLIC PANEL GREEN LI/HEP BLD/PLAS PLASMA [facility] Feb 17, 2025 12:00 AM Laboratory - Chemistry Order CBC BLOOD [facility] Lab Results: +/- 30 days of the [...] Type Comment Feb 02, 2025 09:30 AM [facility] HGA1C BLOOD Specimen Type: BLOOD No comment entered. Ordering Provider: STEVEN SCHMIDT Report Released Date/Time: Feb 02, 2025 09:20 AM Reporting Lab: [facility] Nicolette [facility] [address] Performing Lab: [facility] [place] [place] [address] [address] HGA1C 6.5 H 4.0-6.0 Feb 02, 2025 09:30 AM [facility] BASIC METABOLIC PANEL PLASMA Specimen Type: PLASMA Comment: No hemolysis noted. Ordering Provider: STEVEN SCHMIDT Report Released Date/Time: Feb 02, 2025 09:20 AM Reporting Lab: [address] [address] Performing Lab: [address] [address] CREATININE 1.15 mg/dL 0.7-1.3 UREA NITROGEN 17.9 mg/dL 9.0-25.0 GLUCOSE 185 mg/dL H 72-99 SODIUM 133 meq/L L 136-145 POTASSIUM 4.3 meq/L 3.5-5 CHLORIDE 103 meq/L 98-107 CARBON DIOXIDE 16 meq/L L 22-31 CALCIUM 9.5 mg/dL 8.4-10.4 EGFR (CKD-EPI 2020) 63.9 >60 Feb 02, 2025 09:30 AM [facility] CBC BLOOD Specimen Type: BLOOD No comment entered. Ordering Provider: STEVEN SCHMIDT Report Released Date/Time: Feb 02, 2025 09:20 AM Reporting Lab: [address] [address] Performing Lab: [address] [address] WBC 13.7 10*3/uL H 3.6-11.2 RBC 4.36 [...] 10*3/uL 0.77-4.50 NEUT#-MDIFF 12.12 10*3/uL H 2.10-8.00 Advance Directives: All historical and current Section [...] DISCUSSION SHEA [facility] Encounter Notes: All associated encounter notes This section contains the clinical notes associated to the Encounter. Date/Time Encounter Note(s) Provider Source Feb 03, 2025 10:22 AM CARE COORDINATION HOME TELEHEALTH EDUCATION NOTE: LOCAL TITLE: HT TECH EDUCATION NOTE STANDARD TITLE: CARE COORDINATION HOME TELEHEALTH EDUCATION NOTE DATE OF NOTE: FEB 03, 2025@10:22 ENTRY DATE: FEB 03, 2025@10:22:24 AUTHOR: THOMAS TERRELL EXP COSIGNER: URGENCY: STATUS: COMPLETED HT TECH EDUCATION NOTE Has ADDENDA HOME TELEHEALTH (HT) TECH EDUCATION AND INSTALLATION NOTE Patient phone: Patient Patient identifiers (two required): Full Name, Date of Allergy Review: Patient has answered NKA Allergy list reviewed and remains current. The following information was provided to patient: Ceramics Artist Contact Information: Thomas Terrell RN [phone] ext. [phone] After Hours Nurse Line is available for urgent phone calls and ER is available 13/01. Home Monitoring technology assigned: In Home Messaging Device (IHMD) Vendor: [employer] Connection via: Cellular modem Peripheral Device(s): Blood pressure Monitor with pulse Entry: Bluetooth Non-pharmacy provided Blood Glucose Meter Entry: Bluetooth Delivery mode: Mailed to [place] from [facility] ([facility] Technology installed by: /Caregiver [place]/Caregiver was educated on technology by: Ceramics Artist (name): Thomas Terrell, RN /Caregiver is able to understand verbal instructions. [place]/Caregiver is able to follow visual instructions. N/A [place]/Caregiver does not need learning aid. /Caregiver trained on the following: Level of Understanding: Good Power and phone connections Checking phone for dial tone Safety information Ability to read and answer questions Ability to push appropriate buttons Password information Confidentiality of information When to contact staff for technology problems How to connect and transmit vital sign data Whom to call for urgent/emergent needs [place]/Caregiver verbalized understanding of how to operate Home Telehealth Technology during telephone enrollment. /Caregiver is able to do return demonstration: N/A Contact information given to [place]/Caregiver? Yes Please mail welcome packet and Krames: living well with Diabetes. Thank you. = /es/ THOMAS HENRIQUEZN RN REGISTERED NURSE Signed: 02/03/2025 10:28 Receipt Acknowledged By: 02/03/2025 10:41 /leobardo/ ROBE BLOUNT 02/03/2025 ADDENDUM STATUS: COMPLETED The following enrollment packet sent to patient: 1. Disaster Preparedness Patient Information Sheet. 2. HT Enrollment Agreement form 3. [place] Video Connect Step by Step Guide 4. Welcome Enrollment Letter 5. Enrollment Information and Guidelines 6. VHL ([employer]) Handout 7. Krames: Living Well with Diabetes 8. DM Logs /es/ DEON LEONARDO PSA Signed: 02/03/2025 10:41 THOMAS TERRELL [facility]
--- NOTE | ~2025-02-14 | CT_ITS ---
EXAMINATION: CT brain wo con DATE: 02/14/2025 04:41 INDICATION: Fall. Trauma TECHNIQUE: Computed tomography (CT) of the head was performed without intravenous contrast. The dose-length product was 605.33 mGy-cm. COMPARISON: None FINDINGS: No acute intracranial hemorrhage. No mass effect. No midline shift. No hydrocephalus. There are several low density regions scattered throughout the periventricular and deep white matter which are favored to represent chronic ischemic white matter change. No skull fracture. Visualized paranasal sinuses and mastoid air cells are clear. Probable small right frontal scalp hematoma. There are a few small radiodensities in the soft tissues adjacent to the bilateral external auditory canals. Correlate clinically. IMPRESSION: 1. No acute intracranial hemorrhage. No mass effect. 2. Probable chronic ischemic white matter change. 3. Probable small right frontal scalp hematoma. Findings as above. Reviewed, dictated and finalized at location Q.
--- NOTE | ~2025-02-14 | CT_ITS ---
EXAMINATION: CT cervical spine wo con DATE: 02/14/2025 04:41 INDICATION: Fall, trauma TECHNIQUE: Computed tomography (CT) of the cervical spine was performed without intravenous contrast. COMPARISON: None FINDINGS: Cervical vertebral body heights and alignment are within normal limits. No compression fracture in the cervical spine. Mild joint space narrowing at the C5-C6 and C6-C7 levels. Mild degenerative change scattered throughout the cervical facet joints and uncovertebral joints. 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 IMPRESSION: 1. No compression fracture in the cervical spine. 2. Mild joint space narrowing at the C5-C6 C6-C7 levels. 3. 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 Reviewed, dictated and finalized at location Q.
[2025-02-14 03:52] VITALS: BP 154/90; PULSE 112; RESP 12; TEMP 36.4; O2SAT 100
[2025-02-14 04:10] VITALS: BP 154/90; PULSE 101; RESP 17; O2SAT 97
[2025-02-14] MEDS: NACL 0.9% IRRIGATION POUR BOTTLE 500 ML (04:23)
--- OUTSIDE RECORDS SUMMARY | 2025-02-14 04:24 | XMS_ITS | Continuity of Care Document ---
Author Name [facility] Organization [facility] Care Team Providers Care Sales Operations Associate Name Role Phone [facility] Unavailable Unavailable Problems Combined list of problems from Department of Defense and [facility] Affairs facilities. It does not include entries that were removed or entered in error. Problem Status Onset Date Problem Type Date of Resolution Comments Source Abdominal aortic aneurysm Active Condition [facility] Aneurysm of thoracic aorta Active Condition [facility] Benign essential hypertension Active Condition [facility] Benign Prostatic Hypertrophy without Outflow Obstruction ([facility] [id number]) Active Condition [facility] CAD - Coronary Artery Disease ([facility] [id number]) Active Condition [facility] Callous character Active Condition [facility] Colonic fistula Active Condition [facility] Coron[facility] arteriosclerosis Active Condition [facility] Coronary artery disease Active Condition [facility] Dementia ([facility] [id number]) Active Condition [facility] Diabetes mellitus Active Condition [facility] Diabetes Mellitus Type 2 (SCT [id number]) Active Condition [facility] Diabetic neuropathy Active Condition [facility] Diabetic neuropathy with neurologic complication Active Condition [facility] Dyslipidemia Active Condition [facility] Gastroesophageal reflux disease Active Condition [facility] Gastroesophageal Reflux Disease Active Condition [facility] GERD - Gastro-Esophageal Reflux Disease (SCT [id number]) Active Condition [facility] Hearing loss Active Condition [facility] History of left hip replacement Active Condition [facility] HTN - Hypertension (SCT [id number]) Active Condition [facility] Hyperlipidemia Active Condition [facility] Hyperlipidemia ([facility] [id number]) Active Condition [facility] Hypertensive disorder Active Condition [facility] Knee pain Active Condition [facility] Loose stool Active Condition RMOERO MENDOZA [facility] OA - Osteoarthritis ([facility] [id number]) Active Condition ROMERO Samuels [facility] Obesity Active Condition [facility] Osteoarthritis Active Condition [facility] Active Condition [facility] Stented artery Active Condition ROMERO Valdez [facility] Vitamin D deficiency Active Condition A SHANIA Samuels [facility] Diagnosis: ICD-10-CM I10 Essential (primary) hypertension Active Diagnosis [facility] Diagnosis: ICD-10-CM I25.83 Coronary atherosclerosis due to lipid rich plaque Active Diagnosis [facility] Diagnosis: ICD-10-CM Z98.890 Other specified postprocedural states Active Diagnosis [facility] Diagnosis: ICD-10-CM E11.40 Type 2 diabetes mellitus with diabetic neuropathy, unsp Active Diagnosis [facility] Diagnosis: ICD-10-CM Z72.3 Lack of physical exercise Active Diagnosis [facility] Diagnosis: ICD-10-CM Z46.1 Encounter for fitting and adjustment of hearing aid Active Diagnosis [facility] Diagnosis: ICD-10-CM Z76.0 Encounter for issue of repeat prescription Active Diagnosis ROMERO Perez [facility] Diagnosis: ICD-10-CM 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 Diagnosis [facility] Diagnosis: ICD-10-CM Z71.9 Counseling, unspecified Active Diagnosis [facility] Diagnosis: ICD-10-CM K81.1 Chronic cholecystitis Active Diagnosis [facility] Admit Reason: CHOLECYSITIS Active Diagnosis [facility] Diagnosis: ICD-10-CM Z01.818 Encounter for other preprocedural examination Active Diagnosis [facility] Diagnosis: ICD-10-CM K80.20 Calculus of gallbladder w/o cholecystitis w/o obstruction Active Diagnosis [facility] Diagnosis: ICD-10-CM R93.2 Abnormal findings on dx imaging of liver and biliary tract Active Diagnosis [facility] Diagnosis: ICD-10-CM F41.1 Generalized anxiety disorder Active Diagnosis [facility] Diagnosis: ICD-10-CM E11.9 Type 2 diabetes mellitus without complications Active Diagnosis [facility] Diagnosis: ICD-10-CM K82.9 Disease of gallbladder, unspecified Active Diagnosis [facility] Diagnosis: ICD-10-CM R10.10 Upper abdominal pain, unspecified Active Diagnosis [facility] Diagnosis: ICD-10-CM E27.9 Disorder of adrenal gland, unspecified Active Diagnosis [facility] Diagnosis: ICD-10-CM M25.569 Pain in unspecified knee Active Diagnosis [facility] Diagnosis: ICD-10-CM L82.0 Inflamed seborrheic keratosis Active Diagnosis [facility] Medications Combined list of outpatient medications [...] OPHEN (APAP) FROM ALL MEDS. ORAL 06/10/2024 [id number] CARMELA MORRISON 2023 100 [facility] AMLODIPINE BESYLATE 10MG TAB TAKE ONE-HALF TABLET BY MOUTH EVERY DAY ORAL ACTIVE SANDEE REYNOLDS 2018 [facility] ASPIRIN 81MG TAB,EC TAKE ONE TABLET BY MOUTH ONCE A DAY TAKE WITH FOOD. ORAL ACTIVE 03/27/2025 [id number] 5 SAMPLES,R OBERTA CYNDI 2023 120 [facility] ASPIRIN 81MG TAB,EC TAKE ONE TABLET BY MOUTH EVERY DAY ORAL ACTIVE SANDEE REYNOLDS 2013 [facility] ATORVASTATI N CA 40MG TAB TAKE ONE TABLET BY MOUTH EVERY DAY ORAL ACTIVE SANDEE REYNOLDS 2016 [facility] ATORVASTATI N CA 80MG TAB TAKE ONE TABLET BY MOUTH EVERY EVENING FOR HIGH CHOLESTE ROL ORAL ACTIVE 03/27/2025 [id number] 5 SAMPLES,R OBERTA CYNDI 2023 90 [facility] ATORVASTATI N CA 80MG TAB TAKE ONE TABLET BY MOUTH EVERY EVENING FOR HIGH CHOLESTE ROL ORAL DISCONT INUED 02/11/2024 [id number] SAMPLES,R OBERTA CYNDI 2022 90 [facility] BENZONATATE 100MG CAP TAKE ONE CAPSULE BY MOUTH THREE TIMES A DAY NEEDED FOR COUGH ORAL 02/11/2024 [id number] 4 SAMPLES,R OBERTA CYNDI 2022 90 [facility] BISACODYL 5MG TAB,EC TAKE TWO TABLETS BY MOUTH ONE TIME TAKE BISACODY L TABLETS AT 4PM ON AFTERNOO N PRIOR TO TEST. CALL [phone] WITH ANY QUESTION S ABOUT THESE INSTRUCT IONS. MAIL TAKE BISACODY L TABLETS AT 4PM ON AFTERNOO N PRIOR TO TEST. CALL [phone] WITH ANY QUESTION S ABOUT THESE INSTRUCT IONS. MAIL ORAL 02/27/2024 [id number] 4 Devante BLANC ATTOFELIAW H 2023 2 [facility] BISACODYL 5MG TAB,EC TAKE TWO TABLETS BY MOUTH ONE TIME TAKE BISACODY L TABLETS AT 4PM ON AFTERNOO N PRIOR TO TEST. CALL [phone] WITH ANY QUESTION S ABOUT THESE INSTRUCT IONS. MAIL TAKE BISACODY L TABLETS AT 4PM ON AFTERNOO N PRIOR TO TEST. CALL WITH ANY QUESTION S ABOUT THESE INSTRUCT IONS. MAIL ORAL 12/21/2023 [id number] 4 [facility] 2 [facility] BUSPIRONE HCL 10MG TAB TAKE ONE-HALF TABLET BY MOUTH ONCE A DAY DO NOT TAKE WITH GRAPEFRU IT JUICE. ORAL ACTIVE 02/25/2025 [id number] 4 ABICHANDA NI,LACHMA N 2023 45 [facility] BUSPIRONE HCL 10MG TAB TAKE ONE-HALF TABLET BY MOUTH ONCE A DAY FOR ANXIETY DO NOT TAKE WITH GRAPEFRU IT JUICE. ORAL DISCONT INUED 11/20/2024 [id number] 4 ZONIA TURNER Gabi 2023 45 [facility] CARBOXYMETH YLCELLULOSE NA 0.5% SOLN,OPH INSTILL 1 DROP IN BOTH EYES FOUR TIMES A DAY NEEDED FOR DRY EYE(S) OPHTHA LMIC ACTIVE 02/24/2025 [id number] 4 MICHAEL PRINGLE 2023 30 [facility] CARBOXYMETH YLCELLULOSE NA 0.5% SOLN,OPH INSTILL 1 DROP IN BOTH EYES FOUR TIMES A DAY NEEDED FOR DRY EYE(S) OPHTHA LMIC DISCONT INUED 02/24/2025 [id number] 4 MICHAEL PRINGLE 2023 45 [facility] CETIRIZINE HCL 10MG TAB TAKE ONE TABLET BY MOUTH ONCE A DAY NEEDED FOR ALLERGY SYMPTOMS ORAL ACTIVE 09/23/2025 [id number] 5 SAMPLES,R OBERTA CYNDI 2024 90 [facility] CETIRIZINE HCL 10MG TAB TAKE ONE TABLET BY MOUTH ONCE A DAY NEEDED FOR ALLERGY SYMPTOMS ORAL DISCONT INUED 09/24/2024 [id number] 5 SAMPLES,R OBERTA CYNDI 2023 90 [facility] CHOLECALCIF MIGUEL 50MCG (2,000UNIT) TAB TAKE ONE TABLET BY MOUTH ONCE A DAY FOR VITAMIN D DEFICIEN CY ORAL SUSPEND ED 09/23/2025 [id number] 5 SAMPLES,R OBERTA CYNDI 2024 100 [facility] CHOLECALCIF MIGUEL 50MCG (2,000UNIT) TAB TAKE ONE TABLET BY MOUTH ONCE A DAY FOR VITAMIN D DEFICIEN CY ORAL DISCONT INUED 09/24/2024 [id number] 4 SAMPLES,R OBERTA CYNDI 2023 100 [facility] CHOLESTYRAM INE 4GM/5GM (LIGHT) PWDR,PKT MIX AND DRINK 1 PACKET BY MOUTH TWICE DAILY NEEDED FOR CHRONIC DIARRHEA MIX WITH WATER DIRECTED . TAKE OTHER MEDICATI ONS 1 HOUR BEFORE OR 6 HOURS AFTER ADMINIST RATION. ORAL ACTIVE 01/27/2026 [id number] 5 SAMPLES,R OBERTA CYNDI 2024 120 [facility] CHOLESTYRAM INE 4GM/5GM (LIGHT) PWDR,PKT MIX AND DRINK 1 PACKET BY MOUTH TWICE DAILY NEEDED FOR CHRONIC DIARRHEA MIX WITH WATER DIRECTED . TAKE OTHER MEDICATI ONS 1 HOUR BEFORE OR 6 HOURS AFTER ADMINIST RATION. ORAL DISCONT INUED 11/12/2025 [id number] SAMPLES,R OBERTA CYNDI 2024 84 [facility] CLOPIDOGREL BISULFATE 75MG TAB TAKE ONE TABLET BY MOUTH ONCE A DAY FOR ACUTE CORONARY SYNDROME ORAL ACTIVE 03/27/2025 [id number] 5 SAMPLES,R OBERTA CYNDI 2023 90 [facility] CLOPIDOGREL BISULFATE 75MG TAB TAKE ONE TABLET BY MOUTH ONCE A DAY FOR ACUTE CORONARY SYNDROME ORAL DISCONT INUED 02/11/2024 [id number] SAMPLES,R OBERTA CYNDI 2022 90 [facility] CLOPIDOGREL BISULFATE 75MG TAB TAKE ONE TABLET BY MOUTH EVERY DAY ORAL ACTIVE SANDEE REYNOLDS 2013 [facility] CYANOCOBALA MIN 1000MCG TAB TAKE ONE TABLET BY MOUTH ONCE A DAY FOR VITAMIN B12 SUPPLEME NTATION ORAL ACTIVE 09/23/2025 [id number] 5 SAMPLES,R OBERTA CYNDI 2024 100 [facility] CYANOCOBALA MIN 1000MCG TAB TAKE ONE TABLET BY MOUTH ONCE A DAY FOR VITAMIN B12 SUPPLEME NTATION ORAL DISCONT INUED 09/24/2024 [id number] 5 SAMPLES,R OBERTA CYNDI 2023 100 [facility] CYCLOBENZAP RINE HCL 10MG TAB TAKE ONE TABLET BY MOUTH AT BEDTIME NEEDED FOR MUSCLE SPASM MAY CAUSE DROWSINE SS. DO NOT DRINK ALCOHOL WHILE TAKING THIS MEDICATI ON. ORAL ACTIVE 07/03/2025 [id number] 5 SAMPLES,R OBERTA CYNDI 2024 90 [facility] CYCLOBENZAP RINE HCL 10MG TAB TAKE ONE TABLET BY MOUTH AT BEDTIME NEEDED FOR MUSCLE SPASM MAY CAUSE DROWSINE SS. DO NOT DRINK ALCOHOL WHILE TAKING THIS MEDICATI ON. ORAL DISCONT INUED 09/24/2024 [id number] SAMPLES,R OBERTA CYNDI 2023 90 [facility] [...] (MEASURE DOSE WITH RULER ATTACHED INSIDE BOX) BRANDEN L ACTIVE 03/27/2025 [id number] 5 SAMPLES,R OBERTA CYNDI 2023 100 [facility] [...] (MEASURE DOSE WITH RULER ATTACHED INSIDE BOX) BRANDEN L DISCONT INUED 02/11/2024 [id number] SAMPLES,R OBERTA CYNDI 2022 100 [facility] DONEPEZIL HCL 10MG TAB TAKE ONE TABLET BY MOUTH AT BEDTIME FOR ALZHEIME R DISEASE (JUST BEFORE BEDTIME) ORAL ACTIVE 03/27/2025 [id number] 5 SAMPLES,R OBERTA CYNDI 2023 90 [facility] DONEPEZIL HCL 10MG TAB TAKE ONE TABLET BY MOUTH AT BEDTIME FOR ALZHEIME R DISEASE (JUST BEFORE BEDTIME) ORAL DISCONT INUED 02/11/2024 [id number] SAMPLES,R OBERTA CYNDI 2022 90 [facility] DONEPEZIL HCL 10MG TAB TAKE ONE-HALF TABLET BY MOUTH AT BEDTIME ORAL ACTIVE SANDEE REYNOLDS 2020 [facility] EMPAGLIFLOZ IN 10MG TAB TAKE ONE TABLET BY MOUTH EVERY DAY ORAL ACTIVE SANDEE REYNOLDS 2018 [facility] EMPAGLIFLOZ IN 25MG TAB TAKE ONE-HALF TABLET BY MOUTH ONCE A DAY ORAL ACTIVE 03/27/2025 [id number] 5 SAMPLES,R OBERTA CYNDI 2023 45 [facility] EMPAGLIFLOZ IN 25MG TAB TAKE ONE-HALF TABLET BY MOUTH ONCE A DAY ORAL DISCONT INUED 02/11/2024 [id number] SAMPLES,R OBERTA CYNDI 2022 45 [facility] GABAPENTIN 100MG CAP TAKE ONE CAPSULE BY MOUTH TWICE A DAY AND TAKE THREE CAPSULES AT BEDTIME FOR NERVE PAIN ORAL 02/11/2024 [id number] 4 SAMPLES,R OBERTA CYNDI 2022 450 [facility] GABAPENTIN 100MG CAP TAKE 1 CAPSULE BY MOUTH EVERY DAY ORAL ACTIVE SANDEE REYNOLDS 2020 [facility] IRBESARTAN 150MG TAB TAKE ONE TABLET BY MOUTH ONCE A DAY FOR HIGH BLOOD PRESSURE NOTE: DOSE DECREASE ORAL DISCONT INUED (EDIT) 03/17/2025 [id number] SAMPLES,R OBERTA CYNDI 2023 90 [facility] IRBESARTAN 300MG TAB TAKE ONE TABLET BY MOUTH ONCE A DAY FOR HIGH BLOOD PRESSURE ORAL 02/11/2024 [id number] SAMPLES,R OBERTA CYNDI 2022 90 [facility] IRBESARTAN 300MG TAB TAKE ONE TABLET BY MOUTH EVERY DAY ORAL ACTIVE SANDEE REYNOLDS 2013 [facility] IRBESARTAN 75MG TAB TAKE ONE TABLET BY MOUTH ONCE A DAY NOTE: DOSE DECREASE ORAL DISCONT INUED BY PROVIDE R 03/27/2025 [id number] SAMPLES,R OBERTA CYNDI 2023 90 [facility] ISOSORBIDE MONONITRATE 30MG TAB,SA TAKE ONE TABLET BY MOUTH ONCE A DAY FOR CHEST PAIN TAKE ON EMPTY STOMACH. SWALLOW WHOLE. DO NOT CRUSH OR CHEW. ORAL ACTIVE 09/23/2025 [id number] 5 SAMPLES,R OBERTA CYNDI 2024 90 [facility] ISOSORBIDE MONONITRATE 30MG TAB,SA TAKE ONE TABLET BY MOUTH ONCE A DAY FOR CHEST PAIN TAKE ON EMPTY STOMACH. SWALLOW WHOLE. DO NOT CRUSH OR CHEW. ORAL DISCONT INUED 09/24/2024 [id number] SAMPLES,R OBERTA CYNDI 2023 90 [facility] [...] BEDTIME FOR SLEEP ORAL SUSPEND ED 07/21/2025 [id number] SAMPLES,R OBJL HANNA 2024 90 [facility] MELOXICAM 15MG TAB TAKE ONE TABLET BY MOUTH EVERY DAY ORAL ACTIVE SANDEE REYNOLDS 2013 [facility] METFORMIN HCL 1000MG TAB TAKE ONE TABLET BY MOUTH ONCE A DAY FOR DIABETES TAKE WITH FOOD. AVOID ALCOHOL. DISCONTI NUE BEFORE GETTING XRAY DYE. ORAL ACTIVE 09/23/2025 [id number] 5 SAMPLES,R OBERTA CYNDI 2024 90 [facility] METFORMIN HCL 1000MG TAB TAKE ONE TABLET BY MOUTH ONCE A DAY FOR DIABETES TAKE WITH FOOD. AVOID ALCOHOL. DISCONTI NUE BEFORE GETTING XRAY DYE. ORAL DISCONT INUED 09/24/2024 [id number] 5 SAMPLES,R OBERTA CYNDI 2023 90 [facility] METFORMIN HCL 1000MG TAB TAKE ONE TABLET BY MOUTH EVERY DAY FOR DIABETES -DO NOT DRINK ALCOHOL - TAKE WITH FOOD ORAL 09/17/2024 [id number] 5 RISERMAY 2024 30 ROMERO HODGES [facility] METFORMIN HCL 500MG TAB TAKE ONE TABLET BY MOUTH EVERY MORNING ORAL ACTIVE SANDEE REYNOLDS 2014 [facility] METOPROLOL SUCCINATE 100MG TAB,SA TAKE ONE-HALF TABLET BY MOUTH ONCE A DAY FOR HIGH BLOOD PRESSURE SWALLOW WHOLE, DO NOT CRUSH OR CHEW (TABLETS MAY BE CUT IN HALF). ORAL DISCONT INUED BY PROVIDE R 03/27/2025 [id number] 5 SAMPLES,R OBERTA CYNDI 2023 45 [facility] METOPROLOL SUCCINATE 100MG TAB,SA TAKE ONE-HALF TABLET BY MOUTH EVERY DAY ORAL ACTIVE SANDEE REYNOLDS 2013 [facility] MIDODRINE HCL 2.5MG TAB TAKE ONE TABLET BY MOUTH THREE TIMES A DAY ORAL ACTIVE 02/03/2026 [id number] SAMPLES,R OBERTA CYNDI 2024 90 [facility] OMEPRAZOLE 20MG CAP,EC TAKE 2 CAPSULES BY MOUTH EVERY DAY ORAL ACTIVE SANDEE REYNODLS 2020 [facility] OMEPRAZOLE 40MG CAP,EC TAKE ONE CAPSULE BY MOUTH EVERY MORNING BEFORE A MEAL TAKE 30 MINUTES PRIOR TO FOOD. ORAL ACTIVE 09/23/2025 [id number] 5 SAMPLES,R OBERTA CYNDI 2024 90 [facility] OMEPRAZOLE 40MG CAP,EC TAKE ONE CAPSULE BY MOUTH EVERY MORNING BEFORE A MEAL TAKE 30 MINUTES PRIOR TO FOOD. ORAL DISCONT INUED 09/24/2024 [id number] 5 SAMPLES,R OBERTA CYNDI 2023 90 [facility] OXYCODONE HCL 5MG TAB TAKE ONE TABLET BY MOUTH EVERY 6 HOURS NEEDED FOR POST-OPE RATIVE PAIN MAY CAUSE CONSTIPA TION ORAL 06/10/2024 [id number] 4 CARMELA MORRISON 2023 6 [facility] PEG-3350/EL ECTROLYTES PWDR [...] TEST. READ YOUR INSTRUCT IONS!) ORAL 12/21/2023 [id number] 4 [facility] 1 [facility] POLYETHYLEN E GLYCOL 3350 PWDR,ORAL MIX AND DRINK 2 CAPFULS BY MOUTH ONCE A DAY FOR BOWEL EMPTYING (MEASURE WITH CAP AND MIX IN 8 OZ OF WATER) ORAL 01/05/2024 [id number] 4 MACK CHAN W 2023 1530 [facility] SERTRALINE HCL 50MG TAB TAKE ONE-HALF TABLET BY MOUTH EVERY MORNING ORAL ACTIVE 02/03/2026 [id number] 5 SAMPLES,R OBERTA CYNDI 2024 45 [facility] SIMETHICONE 80MG TAB,CHEW CHEW AND SWALLOW FOUR TABLETS BY MOUTH DIRECTED FOR GAS DISCOMFO RT FOR TWO DOSES BEFORE GI PROCEDUR E ORAL 02/27/2024 [id number] 4 Devante BLANC [facility] 2023 8 [facility] N SIMETHICONE 80MG TAB,CHEW CHEW AND SWALLOW FOUR TABLETS BY MOUTH DIRECTED FOR GAS DISCOMFO RT FOR TWO DOSES BEFORE GI PROCEDUR E ORAL 12/21/2023 [id number] 4 Devante BLANC [facility] 2023 8 [facility] N TAMSULOSIN HCL 0.4MG CAP TAKE TWO CAPSULES BY MOUTH EVERY EVENING FOR BENIGN PROSTATI C HYPERPLA JOSE D APPROXIM ATELY 30 MINUTES AFTER THE SAME MEAL EACH DAY ORAL SUSPEND ED 09/23/2025 [id number] 5 SAMPLES,R OBERTA CYNDI 2024 180 [facility] TAMSULOSIN HCL 0.4MG CAP TAKE TWO CAPSULES BY MOUTH EVERY EVENING FOR BENIGN PROSTATI C HYPERPLA JOSE D APPROXIM ATELY 30 MINUTES AFTER THE SAME MEAL EACH DAY ORAL DISCONT INUED 07/22/2024 [id number] SAMPLES,R OBERTA CYNDI 2023 180 [facility] TAMSULOSIN HCL 0.4MG CAP TAKE TWO CAPSULES BY MOUTH EVERY EVENING FOR BENIGN PROSTATI C HYPERPLA JOSE D APPROXIM ATELY 30 MINUTES AFTER THE SAME MEAL EACH DAY ORAL DISCONT INUED 07/22/2024 [id number] SAMPLES,R OBERTA CYNDI 2023 180 [facility] [...] reactions to drug (finding) Cough active 2 [facility] SIMVASTATIN Propensity to adverse reactions to drug (finding) active 9 [facility] SIMVASTATIN Propensity to adverse reactions to drug (finding) Muscle pain active 2 [facility] Immunizations Combined list of available immunizations from the Department of Defense and Veterans Affairs facilities. Immunization Series Date Given Administered By Site Reaction Lot Number CVX Code Drug Animal Laboratory Helper Status Comments Source INFLUENZA, UNSPECIFIED FORMULATION 2022 88 complet ed HISTORICA L INFORMATI ON - FROM OTHER PROVIDER, [facility] ZOSTER RECOMBINANT 2 2021 187 complet ed HISTORICA L INFORMATI ON - FROM OTHER REGISTRY, per JLV given at [facility] ZOSTER RECOMBINANT 1 2021 187 complet ed HISTORICA L INFORMATI ON - FROM OTHER REGISTRY, PER JLV given at [facility] INFLUENZA, UNSPECIFIED FORMULATION 2020 88 complet ed [facility] PNEUMOCOCCAL POLYSACCHARID E PPV23 2 2020 33 complet ed HISTORICA L INFORMATI ON - FROM OTHER REGISTRY, [facility] COVID-19 (MODERNA), MRNA, LNP-S, PF, 100 MCG/0.5ML DOSE OR 50 MCG/0.25ML DOSE 2 2020 207 complet ed HISTORICA L INFORMATI ON - FROM OTHER REGISTRY, [facility] COVID-19 (MODERNA), MRNA, LNP-S, PF, 100 MCG/0.5ML DOSE OR 50 MCG/0.25ML DOSE 1 2020 207 complet ed HISTORICA L INFORMATI ON - FROM OTHER REGISTRY, [facility] INFLUENZA, HIGH-DOSE, QUADRIVALENT, PF 1 2019 197 complet ed HISTORICA L INFORMATI ON - FROM OTHER [facility], [facility] INFLUENZA, UNSPECIFIED FORMULATION 2019 88 complet ed [facility] [place] [facility] INFLUENZA, SPLIT VIRUS, QUADRIVALENT, PF 1 2018 150 complet ed HISTORICA L INFORMATI ON - FROM OTHER REGISTRY, [facility] PNEUMOCOCCAL CONJUGATE PCV 13 1 2018 133 complet ed HISTORICA L INFORMATI ON - FROM OTHER [facility], [facility] INFLUENZA, SEASONAL, INJECTABLE 2018 141 complet ed [facility], [facility] PNEUMOCOCCAL CONJUGATE PCV 13 2018 133 complet ed date unknown [facility], [facility] INFLUENZA, SPLIT VIRUS, TRIVALENT, PRESERVATIVE 2 2017 141 complet ed HISTORICA L INFORMATI ON - FROM OTHER REGISTRY, [facility] INFLUENZA, HIGH-DOSE, TRIVALENT, PF 1 2017 135 complet ed HISTORICA L INFORMATI ON - FROM OTHER REGISTRY, [facility] INFLUENZA, HIGH DOSE SEASONAL 2017 135 complet ed [facility], [facility] PNEUMOCOCCAL CONJUGATE PCV 13 2012 133 complet ed [facility] TDAP 2011 115 complet ed [facility] TD (ADULT), 2 LF TETANUS TOXOID, PRESERVATIVE FREE, ADSORBED 1 2007 09 complet ed HISTORICA L INFORMATI ON - FROM OTHER REGISTRY, [facility] Results Combined list of recent chemistry, hematology and other laboratory results from Department of Defense and Veterans Affairs, ranging from 15 months to all on record, depending upon the facility. Order Name Results Value Reference Range Date Interpretation Specimen Comments Source [id number] HEMOGLOBIN A1C/HEMOGL OBIN.TOTAL IN BLOOD 6.5 4.0 - 6.0 02/02 H Specimen Type: BLOOD No comment entered. Ordering Provider: SONNY SCHMIDT Report Released Date/Time: Feb 02, 2025 09:20 AM Reporting Lab: [address] [phone] Performing Lab: [address] [phone] [facility] BASIC METABOLIC PANEL CREATININE [MASS/VOLU ME] IN SERUM OR PLASMA 1.15 mg/dL 0.7 - 1.3 02/02 Specimen Type: PLASMA Comment: No hemolysis noted. Ordering Provider: SONNY SCHMIDT Report Released Date/Time: Feb 02, 2025 09:20 AM Reporting Lab: [facility] [address] [place] [phone] Performing Lab: [address] [phone] [facility] BASIC METABOLIC PANEL UREA NITROGEN [MASS/VOLU ME] IN SERUM OR PLASMA 17.9 mg/dL 9.0 - 25.0 02/02 Specimen Type: PLASMA Comment: No hemolysis noted. Ordering Provider: SONNY SCHMIDT Report Released Date/Time: Feb 02, 2025 09:20 AM Reporting Lab: [facility] [address] [place] [phone] Performing Lab: [address] [address] [facility] BASIC METABOLIC PANEL GLUCOSE [MASS/VOLU ME] IN SERUM OR PLASMA 185 mg/dL 72 - 99 02/02 H Specimen Type: PLASMA Comment: No hemolysis noted. Ordering Provider: SONNY SCHMIDT Report Released Date/Time: Feb 02, 2025 09:20 AM Reporting Lab: [facility] [address] [place] [phone] Performing Lab: [facility] [address] [place] [phone] [facility] BASIC METABOLIC PANEL SODIUM [MOLES/VOL UME] IN SERUM OR PLASMA 133 meq/L 136 - 145 02/02 L Specimen Type: PLASMA Comment: No hemolysis noted. Ordering Provider: SONNY SCHMIDT Report Released Date/Time: Feb 02, 2025 09:20 AM Reporting Lab: [address] [phone] Performing Lab: [address] [phone] [facility] BASIC METABOLIC PANEL POTASSIUM [MOLES/VOL UME] IN SERUM OR PLASMA 4.3 meq/L 3.5 - 5 02/02 Specimen Type: PLASMA Comment: No hemolysis noted. Ordering Provider: SONNY SCHMIDT Report Released Date/Time: Feb 02, 2025 09:20 AM Reporting Lab: [facility] [address] [place] [phone] Performing Lab: [facility] [address] [place] [phone] [facility] BASIC METABOLIC PANEL CHLORIDE [MOLES/VOL UME] IN SERUM OR PLASMA 103 meq/L 98 - 107 02/02 Specimen Type: PLASMA Comment: No hemolysis noted. Ordering Provider: SONNY SCHMIDT Report Released Date/Time: Feb 02, 2025 09:20 AM Reporting Lab: [facility] [address] [place] [phone] Performing Lab: [facility] [address] [place] [phone] [facility] BASIC METABOLIC PANEL CARBON DIOXIDE, TOTAL [MOLES/VOL UME] IN SERUM OR PLASMA 16 meq/L 22 - 31 02/02 L Specimen Type: PLASMA Comment: No hemolysis noted. Ordering Provider: SONNY SCHMIDT Report Released Date/Time: Feb 02, 2025 09:20 AM Reporting Lab: [address] [address] Performing Lab: [address] [address] [facility] BASIC METABOLIC PANEL CALCIUM [MASS/VOLU ME] IN SERUM OR PLASMA 9.5 mg/dL 8.4 - 10.4 02/02 Specimen Type: PLASMA Comment: No hemolysis noted. Ordering Provider: SONNY SCHMIDT Report Released Date/Time: Feb 02, 2025 09:20 AM Reporting Lab: [address] [address] Performing Lab: [address] [address] [facility] BASIC METABOLIC PANEL GLOMERULAR FILTRATION RATE/1.73 SQ M.PREDICTE D [VOLUME RATE/AREA] IN SERUM, PLASMA OR BLOOD BY CREATININE -BASED FORMULA (CKD-EPI 2020) 63.9 60 02/02 Specimen Type: PLASMA Comment: No hemolysis noted. Ordering Provider: SONNY SCHMIDT Report Released Date/Time: Feb 02, 2025 09:20 AM Reporting Lab: [address] [address] Performing Lab: [address] [address] [facility] CBC LEUKOCYTES [#/VOLUME] IN BLOOD BY AUTOMATED COUNT 13.7 10*3/uL 3.6 - 11.2 02/02 H Specimen Type: BLOOD No comment entered. Ordering Provider: SONNY SCHMIDT Report Released Date/Time: Feb 02, 2025 09:20 AM Reporting Lab: [address] [address] Performing Lab: [address] [address] [facility] CBC ERYTHROCYT ES [#/VOLUME] IN BLOOD BY AUTOMATED COUNT 4.36 10*6/uL 4.10 - 5.70 02/02 Specimen Type: BLOOD No comment entered. Ordering Provider: SONNY SCHMIDT Report Released Date/Time: Feb 02, 2025 09:20 AM Reporting Lab: [address] [address] Performing Lab: [address] [address] [facility] CBC HEMOGLOBIN [MASS/VOLU ME] IN BLOOD 13.9 g/dL 13.1 - 16.8 02/02 Specimen Type: BLOOD No comment entered. Ordering Provider: SONNY SCHMIDT Report Released Date/Time: Feb 02, 2025 09:20 AM Reporting Lab: [place] [address] Performing Lab: [address] [address] [facility] CBC HEMATOCRIT [VOLUME FRACTION] OF BLOOD 42.2 38.2 - 48.4 02/02 Specimen Type: BLOOD No comment entered. Ordering Provider: SONNY SCHMIDT Report Released Date/Time: Feb 02, 2025 09:20 AM Reporting Lab: [address] [address] Performing Lab: [address] [address] [facility] CBC MCV [ENTITIC VOLUME] BY AUTOMATED COUNT 96.8 fL 80.0 - 100.0 02/02 Specimen Type: BLOOD No comment entered. Ordering Provider: SONNY SCHMIDT Report Released Date/Time: Feb 02, 2025 09:20 AM Reporting Lab: [address] [address] Performing Lab: [address] [address] [facility] CBC MCH [ENTITIC MASS] BY AUTOMATED COUNT 31.9 pg 27.0 - 34.0 02/02 Specimen Type: BLOOD No comment entered. Ordering Provider: SONNY SCHMIDT Report Released Date/Time: Feb 02, 2025 09:20 AM Reporting Lab: [facility] [address] [place] [phone] Performing Lab: [facility] [address] [place] [phone] [facility] CBC MCHC [MASS/VOLU ME] BY AUTOMATED COUNT 32.9 g/dL 33.0 - 36.0 02/02 L Specimen Type: BLOOD No comment entered. Ordering Provider: SONNY SCHMIDT Report Released Date/Time: Feb 02, 2025 09:20 AM Reporting Lab: [place] [address] Performing Lab: [address] [address] [facility] CBC PLATELETS [#/VOLUME] IN BLOOD BY AUTOMATED COUNT 244 10*3/uL 150 - 400 02/02 Specimen Type: BLOOD No comment entered. Ordering Provider: SONNY SCHMIDT Report Released Date/Time: Feb 02, 2025 09:20 AM Reporting Lab: [address] [address] Performing Lab: [address] [address] [facility] CBC PLATELET MEAN VOLUME [ENTITIC VOLUME] IN BLOOD BY AUTOMATED COUNT 10.2 fL 7.5 - 11.2 02/02 Specimen Type: BLOOD No comment entered. Ordering Provider: SONNY SCHMIDT Report Released Date/Time: Feb 02, 2025 09:20 AM Reporting Lab: [facility] [address] [place] [phone] Performing Lab: [address] [address] [facility] CBC ERYTHROCYT E DISTRIBUTI ON WIDTH [RATIO] BY AUTOMATED COUNT 12.9 11.8 - 15.1 02/02 Specimen Type: BLOOD No comment entered. Ordering Provider: SONNY SCHMIDT Report Released Date/Time: Feb 02, 2025 09:20 AM Reporting Lab: [facility] [address] [facility] [address] Performing Lab: [facility] [address] [facility] [address] [facility] CBC SEGMENTED NEUTROPHIL S/100 LEUKOCYTES IN BLOOD BY MANUAL COUNT 88.5 02/02 Specimen Type: BLOOD No comment entered. Ordering Provider: SONNY SCHMIDT Report Released Date/Time: Feb 02, 2025 09:20 AM Reporting Lab: [facility] [address] [facility] [address] Performing Lab: [facility] [address] [facility] [address] [facility] CBC MONOCYTES/ 100 LEUKOCYTES IN BLOOD BY AUTOMATED COUNT 4.4 02/02 Specimen Type: BLOOD No comment entered. Ordering Provider: SONNY SCHMIDT Report Released Date/Time: Feb 02, 2025 09:20 AM Reporting Lab: [facility] [address] [facility] [address] Performing Lab: [place] [address] [facility] [address] [facility] CBC POIKILOCYT OSIS [PRESENCE] IN BLOOD BY LIGHT MICROSCOPY 1+ 02/02 Specimen Type: BLOOD No comment entered. Ordering Provider: SONNY SCHMIDT Report Released Date/Time: Feb 02, 2025 09:20 AM Reporting Lab: [facility] [address] [facility] [address] Performing Lab: [facility] [address] [facility] [address] [facility] CBC TRACEY CELLS [PRESENCE] IN BLOOD BY LIGHT MICROSCOPY 1+ 02/02 Specimen Type: BLOOD No comment entered. Ordering Provider: SONNY SCHMIDT Report Released Date/Time: Feb 02, 2025 09:20 AM Reporting Lab: [facility] [address] [facility] [address] Performing Lab: [facility] [address] [facility] [address] [facility] CBC PAPPENHEIM ER BODIES 0 02/02 Specimen Type: BLOOD No comment entered. Ordering Provider: SONNY SCHMIDT Report Released Date/Time: Feb 02, 2025 09:20 AM Reporting Lab: [facility] [address] [place] [phone] Performing Lab: [address] [address] [facility] CBC LYMPHOCYTE S/100 LEUKOCYTES IN BLOOD BY MANUAL COUNT 5.3 02/02 Specimen Type: BLOOD No comment entered. Ordering Provider: SONNY SCHMIDT Report Released Date/Time: Feb 02, 2025 09:20 AM Reporting Lab: [address] [address] Performing Lab: [address] [address] [facility] CBC VARIANT LYMPHOCYTE S/100 LEUKOCYTES IN BLOOD BY MANUAL COUNT 1.8 02/02 Specimen Type: BLOOD No comment entered. Ordering Provider: SONNY SCHMIDT Report Released Date/Time: Feb 02, 2025 09:20 AM Reporting Lab: [facility] [address] [place] [phone] Performing Lab: [address] [address] [facility] CBC PLATELET ADEQUACY [PRESENCE] IN BLOOD BY LIGHT MICROSCOPY ADEQUATE 02/02 Specimen Type: BLOOD No comment entered. Ordering Provider: SONNY SCHMIDT Report Released Date/Time: Feb 02, 2025 09:20 AM Reporting Lab: [facility] [address] [place] [phone] Performing Lab: [address] [address] [facility] CBC MONOCYTES [#/VOLUME] IN BLOOD BY MANUAL COUNT 0.60 10*3/uL 0.19 - 0.80 02/02 Specimen Type: BLOOD No comment entered. Ordering Provider: SONNY SCHMIDT Report Released Date/Time: Feb 02, 2025 09:20 AM Reporting Lab: [facility] [address] [place], [place] [phone] Performing Lab: [facility] [address] [place] [phone] [facility] CBC LYMPHOCYTE S [#/VOLUME] IN BLOOD BY MANUAL COUNT 0.97 10*3/uL 0.77 - 4.50 02/02 Specimen Type: BLOOD No comment entered. Ordering Provider: SONNY SCHMIDT Report Released Date/Time: Feb 02, 2025 09:20 AM Reporting Lab: [place] [phone] Performing Lab: [address] [address] [facility] CBC NEUTROPHIL S [#/VOLUME] IN BLOOD BY MANUAL COUNT 12.12 10*3/uL 2.10 - 8.00 02/02 H Specimen Type: BLOOD No comment entered. Ordering Provider: SONNY SCHMIDT Report Released Date/Time: Feb 02, 2025 09:20 AM Reporting Lab: [place] [phone] Performing Lab: [address] [phone] [facility] MAGNESIUM MAGNESIUM [MASS/VOLU ME] IN SERUM OR PLASMA 1.7 mg/dL 1.6 - 2.6 09/22 Specimen Type: PLASMA Comment: No hemolysis noted. Ordering Provider: SONNY SCHMIDT Report Released Date/Time: Sep 20, 2024 04:29 PM Reporting Lab: [place] [address] Performing Lab: [address] [address] [facility] LIPID PANEL (STL) CHOLESTERO L [MASS/VOLU ME] IN SERUM OR PLASMA 185 mg/dL 0 - 200 09/22 Specimen Type: PLASMA Comment: No hemolysis noted. Ordering Provider: SONNY SCHMIDT Report Released Date/Time: Sep 20, 2024 04:29 PM Reporting Lab: [facility] [address] [facility] [address] Performing Lab: [place] [address] [address] [facility] [address] [facility] LIPID PANEL (STL) TRIGLYCERI DE [MASS/VOLU ME] IN SERUM OR PLASMA 171 mg/dL 0 - 150 09/22 H Specimen Type: PLASMA Comment: No hemolysis noted. Ordering Provider: SONNY SCHMIDT Report Released Date/Time: Sep 20, 2024 04:29 PM Reporting Lab: [place] [address] [facility] [address] Performing Lab: [place] [address] [facility] [address] [facility] LIPID PANEL (STL) CHOLESTERO L IN LDL [MASS/VOLU ME] IN SERUM OR PLASMA BY CALCULATIO N 115 mg/dL 09/22 Specimen Type: PLASMA Comment: No hemolysis noted. Ordering Provider: SONNY SCHMIDT Report Released Date/Time: Sep 20, 2024 04:29 PM Reporting Lab: [place] [address] [facility] [address] Performing Lab: [place] [address] [facility] [address] [facility] LIPID PANEL (STL) CHOLESTERO L IN HDL [MASS/VOLU ME] IN SERUM OR PLASMA 36 mg/dL 40 09/22 L Specimen Type: PLASMA Comment: No hemolysis noted. Ordering Provider: SONNY SCHMIDT Report Released Date/Time: Sep 20, 2024 04:29 PM Reporting Lab: [place] [address] [facility] [address] Performing Lab: [facility] [address] [facility] COMPREHEN SIVE METABOLIC PANEL CREATININE [MASS/VOLU ME] IN SERUM OR PLASMA 1.01 mg/dL 0.7 - 1.3 09/22 Specimen Type: PLASMA Comment: No hemolysis noted. Ordering Provider: SONNY SCHMIDT Report Released Date/Time: Sep 20, 2024 04:29 PM Reporting Lab: [address] [address] Performing Lab: [address] [address] [facility] COMPREHEN SIVE METABOLIC PANEL UREA NITROGEN [MASS/VOLU ME] IN SERUM OR PLASMA 15.7 mg/dL 9.0 - 25.0 09/22 Specimen Type: PLASMA Comment: No hemolysis noted. Ordering Provider: SONNY SCHMIDT Report Released Date/Time: Sep 20, 2024 04:29 PM Reporting Lab: [address] [address] Performing Lab: [address] [address] [facility] COMPREHEN SIVE METABOLIC PANEL GLUCOSE [MASS/VOLU ME] IN SERUM OR PLASMA 217 mg/dL 72 - 99 09/22 H Specimen Type: PLASMA Comment: No hemolysis noted. Ordering Provider: SONNY SCHMIDT Report Released Date/Time: Sep 20, 2024 04:29 PM Reporting Lab: [address] [address] Performing Lab: [address] [address] [facility] COMPREHEN SIVE METABOLIC PANEL SODIUM [MOLES/VOL UME] IN SERUM OR PLASMA 136 meq/L 136 - 145 09/22 Specimen Type: PLASMA Comment: No hemolysis noted. Ordering Provider: SONNY SCHMIDT Report Released Date/Time: Sep 20, 2024 04:29 PM Reporting Lab: [address] [address] Performing Lab: [address] [address] [facility] COMPREHEN SIVE METABOLIC PANEL POTASSIUM [MOLES/VOL UME] IN SERUM OR PLASMA 4.2 meq/L 3.5 - 5 09/22 Specimen Type: PLASMA Comment: No hemolysis noted. Ordering Provider: SONNY SCHMIDT Report Released Date/Time: Sep 20, 2024 04:29 PM Reporting Lab: [facility] [address] [place] [phone] Performing Lab: [address] [address] [facility] COMPREHEN SIVE METABOLIC PANEL CHLORIDE [MOLES/VOL UME] IN SERUM OR PLASMA 107 meq/L 98 - 107 09/22 Specimen Type: PLASMA Comment: No hemolysis noted. Ordering Provider: SONNY SCHMIDT Report Released Date/Time: Sep 20, 2024 04:29 PM Reporting Lab: [address] [address] Performing Lab: [address] [address] [facility] COMPREHEN SIVE METABOLIC PANEL CARBON DIOXIDE, TOTAL [MOLES/VOL UME] IN SERUM OR PLASMA 23 meq/L 22 - 31 09/22 Specimen Type: PLASMA Comment: No hemolysis noted. Ordering Provider: SONNY SCHMIDT Report Released Date/Time: Sep 20, 2024 04:29 PM Reporting Lab: [facility] [address] [place] [phone] Performing Lab: [address] [address] [facility] COMPREHEN SIVE METABOLIC PANEL CALCIUM [MASS/VOLU ME] IN SERUM OR PLASMA 9.1 mg/dL 8.4 - 10.4 09/22 Specimen Type: PLASMA Comment: No hemolysis noted. Ordering Provider: SONNY SCHMIDT Report Released Date/Time: Sep 20, 2024 04:29 PM Reporting Lab: [facility] [address] [place] [phone] Performing Lab: [address] [address] [facility] COMPREHEN SIVE METABOLIC PANEL PROTEIN [MASS/VOLU ME] IN SERUM OR PLASMA 6.5 g/dL 6 - 8.6 09/22 Specimen Type: PLASMA Comment: No hemolysis noted. Ordering Provider: SONNY SCHMIDT Report Released Date/Time: Sep 20, 2024 04:29 PM Reporting Lab: [address] [address] Performing Lab: [address] [address] [facility] COMPREHEN SIVE METABOLIC PANEL ALBUMIN [MASS/VOLU ME] IN SERUM OR PLASMA 3.5 g/dL 3.4 - 5 09/22 Specimen Type: PLASMA Comment: No hemolysis noted. Ordering Provider: SONNY SCHMIDT Report Released Date/Time: Sep 20, 2024 04:29 PM Reporting Lab: [address] [address] Performing Lab: [address] [phone] [facility] COMPREHEN SIVE METABOLIC PANEL BILIRUBIN. TOTAL [MASS/VOLU ME] IN SERUM OR PLASMA 0.6 mg/dL 0.2 - 1.2 09/22 Specimen Type: PLASMA Comment: No hemolysis noted. Ordering Provider: SONNY SCHMIDT Report Released Date/Time: Sep 20, 2024 04:29 PM Reporting Lab: [address] [address] Performing Lab: [address] [address] [facility] COMPREHEN SIVE METABOLIC PANEL ALKALINE PHOSPHATAS E [ENZYMATIC ACTIVITY/V OLUME] IN SERUM OR PLASMA 146 U/L 40 - 150 09/22 Specimen Type: PLASMA Comment: No hemolysis noted. Ordering Provider: SONNY SCHMIDT Report Released Date/Time: Sep 20, 2024 04:29 PM Reporting Lab: [address] [address] Performing Lab: [address] [address] [facility] COMPREHEN SIVE METABOLIC PANEL ASPARTATE AMINOTRANS FERASE [ENZYMATIC ACTIVITY/V OLUME] IN SERUM OR PLASMA 16 U/L 5 - 34 09/22 Specimen Type: PLASMA Comment: No hemolysis noted. Ordering Provider: SONNY SCHMIDT Report Released Date/Time: Sep 20, 2024 04:29 PM Reporting Lab: [facility] [address] [facility] [address] Performing Lab: [place] [address] [facility] [address] [facility] COMPREHEN SIVE METABOLIC PANEL ALANINE AMINOTRANS FERASE [ENZYMATIC ACTIVITY/V OLUME] IN SERUM OR PLASMA 16 U/L 8 - 40 09/22 Specimen Type: PLASMA Comment: No hemolysis noted. Ordering Provider: SONNY SCHMIDT Report Released Date/Time: Sep 20, 2024 04:29 PM Reporting Lab: [place] [address] [facility] [address] Performing Lab: [place] [address] [address] [facility] [address] [facility] COMPREHEN SIVE METABOLIC PANEL GLOMERULAR FILTRATION RATE/1.73 SQ M.PREDICTE D [VOLUME RATE/AREA] IN SERUM, PLASMA OR BLOOD BY CREATININE -BASED FORMULA (CKD-EPI 2020) 74.7 60 09/22 Specimen Type: PLASMA Comment: No hemolysis noted. Ordering Provider: SONNY SCHMIDT Report Released Date/Time: Sep 20, 2024 04:29 PM Reporting Lab: [place] [address] [facility] [address] Performing Lab: [place] [address] [facility] [address] [facility] HGA1C HEMOGLOBIN A1C/HEMOGL OBIN.TOTAL IN BLOOD 7.4 4.0 - 6.0 09/22 H Specimen Type: BLOOD No comment entered. Ordering Provider: SONNY SCHMIDT Report Released Date/Time: Sep 20, 2024 04:29 PM Reporting Lab: [place] [address] [facility] [address] Performing Lab: [place] [address] [facility] [address] [facility] B12 COBALAMIN (VITAMIN B12) [MASS/VOLU ME] IN SERUM OR PLASMA 548 pg/mL 213 - 816 09/22 Specimen Type: SERUM No comment entered. Ordering Provider: SONNY SCHMIDT Report Released Date/Time: Sep 20, 2024 04:29 PM Reporting Lab: [place] [phone] Performing Lab: [place] [address] [facility] [address] [facility] TSH W/ REFLEX FT4 (STL) THYROTROPI N [UNITS/VOL UME] IN SERUM OR PLASMA 2.029 u[IU]/mL 0.47 - 5 09/22 Specimen Type: PLASMA No comment entered. Ordering Provider: SONNY SCHMIDT Report Released Date/Time: Sep 20, 2024 04:29 PM Reporting Lab: [place] [address] [facility] [address] Performing Lab: [address] [address] [facility] CBC LEUKOCYTES [#/VOLUME] IN BLOOD BY AUTOMATED COUNT 5.0 10*3/uL 3.6 - 11.2 09/22 Specimen Type: BLOOD No comment entered. Ordering Provider: SONNY SCHMIDT Report Released Date/Time: Sep 20, 2024 04:29 PM Reporting Lab: [place] [address] [facility] [address] Performing Lab: [place] [address] [facility] [address] [facility] CBC ERYTHROCYT ES [#/VOLUME] IN BLOOD BY AUTOMATED COUNT 4.54 10*6/uL 4.10 - 5.70 09/22 Specimen Type: BLOOD No comment entered. Ordering Provider: SONNY SCHMIDT Report Released Date/Time: Sep 20, 2024 04:29 PM Reporting Lab: [address] [phone] Performing Lab: [place] [address] [facility] [address] [facility] CBC HEMOGLOBIN [MASS/VOLU ME] IN BLOOD 14.7 g/dL 13.1 - 16.8 09/22 Specimen Type: BLOOD No comment entered. Ordering Provider: SONNY SCHMIDT Report Released Date/Time: Sep 20, 2024 04:29 PM Reporting Lab: [address] [address] Performing Lab: [address] [address] [facility] CBC HEMATOCRIT [VOLUME FRACTION] OF BLOOD 43.5 38.2 - 48.4 09/22 Specimen Type: BLOOD No comment entered. Ordering Provider: SONNY SCHMIDT Report Released Date/Time: Sep 20, 2024 04:29 PM Reporting Lab: [address] [address] Performing Lab: [address] [address] [facility] CBC MCV [ENTITIC VOLUME] BY AUTOMATED COUNT 95.8 fL 80.0 - 100.0 09/22 Specimen Type: BLOOD No comment entered. Ordering Provider: SONNY SCHMIDT Report Released Date/Time: Sep 20, 2024 04:29 PM Reporting Lab: [address] [address] Performing Lab: [address] [address] [facility] CBC MCH [ENTITIC MASS] BY AUTOMATED COUNT 32.4 pg 27.0 - 34.0 09/22 Specimen Type: BLOOD No comment entered. Ordering Provider: SONNY SCHMIDT Report Released Date/Time: Sep 20, 2024 04:29 PM Reporting Lab: [address] [address] Performing Lab: [address] [address] [facility] CBC MCHC [MASS/VOLU ME] BY AUTOMATED COUNT 33.8 g/dL 33.0 - 36.0 09/22 Specimen Type: BLOOD No comment entered. Ordering Provider: SONNY SCHMIDT Report Released Date/Time: Sep 20, 2024 04:29 PM Reporting Lab: [address] [address] Performing Lab: [address] [address] [facility] CBC PLATELETS [#/VOLUME] IN BLOOD BY AUTOMATED COUNT 242 10*3/uL 150 - 400 09/22 Specimen Type: BLOOD No comment entered. Ordering Provider: SONNY SCHMIDT Report Released Date/Time: Sep 20, 2024 04:29 PM Reporting Lab: [address] [address] Performing Lab: [address] [address] [facility] CBC PLATELET MEAN VOLUME [ENTITIC VOLUME] IN BLOOD BY AUTOMATED COUNT 10.5 fL 7.5 - 11.2 09/22 Specimen Type: BLOOD No comment entered. Ordering Provider: SONNY SCHMIDT Report Released Date/Time: Sep 20, 2024 04:29 PM Reporting Lab: [address] [address] Performing Lab: [address] [phone] [facility] CBC ERYTHROCYT E DISTRIBUTI ON WIDTH [RATIO] BY AUTOMATED COUNT 12.1 11.8 - 15.1 09/22 Specimen Type: BLOOD No comment entered. Ordering Provider: SONNY SCHMIDT Report Released Date/Time: Sep 20, 2024 04:29 PM Reporting Lab: [address] [address] Performing Lab: [address] [address] [facility] CBC LYMPHOCYTE S/100 LEUKOCYTES IN BLOOD BY AUTOMATED COUNT 32 09/22 Specimen Type: BLOOD No comment entered. Ordering Provider: SONNY SCHMIDT Report Released Date/Time: Sep 20, 2024 04:29 PM Reporting Lab: [facility] [address] [facility] [address] Performing Lab: [facility] [address] [facility] [address] [facility] CBC MONOCYTES/ 100 LEUKOCYTES IN BLOOD BY AUTOMATED COUNT 7 09/22 Specimen Type: BLOOD No comment entered. Ordering Provider: SONNY SCHMIDT Report Released Date/Time: Sep 20, 2024 04:29 PM Reporting Lab: [facility] [address] [facility] [address] Performing Lab: [facility] [address] [place] [address] [facility] CBC NEUTROPHIL S/100 LEUKOCYTES IN BLOOD BY AUTOMATED COUNT 58 09/22 Specimen Type: BLOOD No comment entered. Ordering Provider: SONNY SCHMIDT Report Released Date/Time: Sep 20, 2024 04:29 PM Reporting Lab: [facility] [address] [facility] [address] Performing Lab: [facility] [address] [facility] [address] [facility] CBC EOSINOPHIL S/100 LEUKOCYTES IN BLOOD BY AUTOMATED COUNT 3 09/22 Specimen Type: BLOOD No comment entered. Ordering Provider: SONNY SCHMIDT Report Released Date/Time: Sep 20, 2024 04:29 PM Reporting Lab: [facility] [address] [facility] [address] Performing Lab: [facility] [address] [facility] [address] [facility] CBC BASOPHILS/ 100 LEUKOCYTES IN BLOOD BY AUTOMATED COUNT 1 09/22 Specimen Type: BLOOD No comment entered. Ordering Provider: SONNY SCHMIDT Report Released Date/Time: Sep 20, 2024 04:29 PM Reporting Lab: [facility] [address] [facility] [address] Performing Lab: [address] [address] [facility] CBC LYMPHOCYTE S [#/VOLUME] IN BLOOD BY AUTOMATED COUNT 1.60 10*3/uL 0.77 - 4.50 09/22 Specimen Type: BLOOD No comment entered. Ordering Provider: SONNY SCHMIDT Report Released Date/Time: Sep 20, 2024 04:29 PM Reporting Lab: [address] [address] Performing Lab: [address] [address] [facility] CBC MONOCYTES [#/VOLUME] IN BLOOD BY AUTOMATED COUNT 0.35 10*3/uL 0.19 - 0.80 09/22 Specimen Type: BLOOD No comment entered. Ordering Provider: SONNY SCHMIDT Report Released Date/Time: Sep 20, 2024 04:29 PM Reporting Lab: [address] [address] Performing Lab: [address] [address] [facility] CBC NEUTROPHIL S [#/VOLUME] IN BLOOD BY AUTOMATED COUNT 2.87 10*3/uL 2.10 - 8.00 09/22 Specimen Type: BLOOD No comment entered. Ordering Provider: SONNY SCHMIDT Report Released Date/Time: Sep 20, 2024 04:29 PM Reporting Lab: [address] [address] Performing Lab: [address] [address] [facility] CBC EOSINOPHIL S [#/VOLUME] IN BLOOD BY AUTOMATED COUNT 0.13 10*3/uL 0.00 - 0.60 09/22 Specimen Type: BLOOD No comment entered. Ordering Provider: SONNY SCHMIDT Report Released Date/Time: Sep 20, 2024 04:29 PM Reporting Lab: [address] [address] Performing Lab: [facility] [address] [facility] [address] [facility] CBC BASOPHILS [#/VOLUME] IN BLOOD BY AUTOMATED COUNT 0.03 10*3/uL 0.00 - 0.20 09/22 Specimen Type: BLOOD No comment entered. Ordering Provider: SONNY SCHMIDT Report Released Date/Time: Sep 20, 2024 04:29 PM Reporting Lab: [facility] [address] [id number] Performing Lab: [facility] [address] [address] [facility] Vital Signs Combined list of inpatient and outpatient Vital Signs from Department of Defense and Veterans Affairs, ranging from 12 months to all on record, depending upon the facility. Vital Sign Value Date Comments Source SYSTOLIC BLOOD PRESSURE 96 02/03/20 25 08:39:23 [facility] DIASTOLIC BLOOD PRESSURE 57 025 08:39:23 [facility] PULSE OXIMETRY 96 % 02/02/2025 08:39:23 [facility] WEIGHT 214 02/02/2025 08:39:23 [facility] BMI 29 kg/m2 02/02/2025 08:39:23 [facility] PAIN 2 02/02/2025 08:39:23 [facility] HEIGHT 72 02/02/2025 08:39:23 [facility] TEMPERATURE 98.1 02/02/2025 08:39:23 [facility] PULSE 106 02/02/2025 08:39:23 [facility] RESPIRATION 20 02/02/2025 08:39:23 [facility] SYSTOLIC BLOOD PRESSURE 103 12/28/19 25 10:01:44 [facility] DIASTOLIC BLOOD PRESSURE 60 025 10:01:44 [facility] PULSE OXIMETRY 96 % 12/27/2024 10:01:44 [facility] WEIGHT 230 12/27/2024 10:01:44 [facility] BMI 31 kg/m2 12/27/2024 10:01:44 [facility] PAIN 0 12/27/2024 10:01:44 [facility] TEMPERATURE 97.2 12/27/2024 10:01:44 [facility] PULSE 70 12/27/2024 10:01:44 [facility] RESPIRATION 16 12/27/2024 10:01:44 [facility] SYSTOLIC BLOOD PRESSURE 154 12/08/19 11:01:58 [facility] DIASTOLIC BLOOD PRESSURE 71 025 11:01:58 [facility] PULSE OXIMETRY 97 % 12/07/2024 11:01:58 [facility] WEIGHT 229.6 12/07/2024 11:01:58 [facility] BMI 31 kg/m2 12/07/2024 11:01:58 [facility] PAIN 3 12/07/2024 11:01:58 [facility] HEIGHT 72 12/07/2024 11:01:58 [facility] TEMPERATURE 97.3 12/07/2024 11:01:58 [facility] PULSE 66 12/07/2024 11:01:58 [facility] RESPIRATION 18 12/07/2024 11:01:58 [facility] SYSTOLIC BLOOD PRESSURE 139 09/23/19 11:38:53 [facility] DIASTOLIC BLOOD PRESSURE 74 025 11:38:53 [facility] PULSE OXIMETRY 98 09/22/2024 11:38:53 [facility] WEIGHT 231.8 09/22/2024 11:38:53 [facility] BMI 32 kg/m2 09/22/2024 11:38:53 [facility] PAIN 4 09/22/2024 11:38:53 [facility] HEIGHT 72 09/22/2024 11:38:53 [facility] TEMPERATURE 97.5 09/22/2024 11:38:53 [facility] PULSE 58 09/22/2024 11:38:53 [facility] RESPIRATION 18 09/22/2024 11:38:53 [facility] SYSTOLIC BLOOD PRESSURE 144 08/18/19 11:47:00 ROMERO Samuels [facility] DIASTOLIC BLOOD PRESSURE 71 025 11:47:00 ROMERO HODGES [facility] PAIN 0 08/18/2024 11:47:00 ROMERO HODGES [facility] TEMPERATURE 97.8 08/18/2024 11:47:00 ROMERO Samuels [facility] PULSE 66 08/18/2024 11:47:00 ROMERO C. [facility] RESPIRATION 18 08/18/2024 11:47:00 ROMERO Samuels [facility] Encounters Combined list of: 1) Encounters from Department of Veterans Affairs facilities going backup to the last 18 months, not all [place] inpatient encounters are included; 2) Encounters from the Department of [facility] facilities going backup to 280 months. Location Location Details Encounter Type Encounter Number Reason For Visit Attending Provider ADM Date DC Date Status Disposition Source [facility] ED[facility] & [place] 1 [place] [address]-7.65 [id number] Diagnos is: ICD-10- CM Z72.3 Lack of physica l exercis e AR WINTER 08/20 [facility] EXERCISE CLASS 05705-1.65 [id number] Diagnos is: ICD-10- CM Z72.3 Lack of physica l exercis e LALIT,ANG SEEMA 08/24 [facility] EXERCISE CLASS 90049-5.65 [id number] Diagnos is: ICD-10- CM Z72.3 Lack of physica l exercis e LALIT,ANG SEEMA 08/25 [facility] HC PRO PHONE CALL 5-10 MIN 12737-1.65 [id number] [facility]I [facility]ISCAL 08[facility]counter [id number] [id number] SONNY SCHMIDT 08/31 [facility] Outpatient Encounter [id number] [id number] Devante GRAFF 08[facility] ED[facility] & [place] 1 [place] [address]-6.65 [id number] Diagnos is: ICD-10- CM Z72.3 Lack of physica l exercis e AR WINTER S 09/02 [facility] EXERCISE CLASS 22933-4.65 [id number] Diagnos is: ICD-10- CM Z72.3 Lack of physica l exercis e GREG ANDREA 09/03 [facility] Outpatient Encounter [id number] [id number] 09/03 [facility] Outpatient Encounter 10825-8.65 [id number] SONNY SCHMIDT CYNDI 09/04 [facility] OFFICE O/P EST MOD 30 MIN 90937-1.65 [id number] Diagnos is: ICD-10- CM 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 RAMYA LONGORIA 09/08 [facility] EXERCISE CLASS 55522-6.65 [id number] Diagnos is: ICD-10- CM Z72.3 Lack of physica l exercis e AR WINTER S 09/14 [facility] EXERCISE CLASS 75299-5.65 [id number] 162 Diagnos is: ICD-10- CM Z72.3 Lack of physica l exercis e GREG ANDREA 09/17 [facility] EXERCISE CLASS 75465-5.65 [id number] Diagnos is: ICD-10- CM Z72.3 Lack of physica l exercis e DEVI WELLS P 09/21 [facility] OFFICE O/P EST MOD 30 MIN 42090-0.65 [id number] 103 Diagnos is: ICD-10- CM M25.569 Pain in 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 knee SAMPLES,SONNY LOO CYNDI 09/[address] [place] [facility] EXERCISE CLASS 57685-3.65 [id number] 101 Diagnos is: ICD-10- CM Z72.3 Lack of physica l exercis e GREG ANDREA 09/24 [facility] EXERCISE CLASS 74598-8.65 [id number] Diagnos is: ICD-10- CM Z72.3 Lack of physica l exercis e MELISSA NULL 09/29 [facility] Outpatient Encounter [id number] [id number] 09/30 [facility] EX[facility]ISE CLASS 86233-7.65 [id number] Diagnos is: ICD-10- CM Z72.3 Lack of physica l exercis e GREG ANDREA 10/01 [facility] OFF/OP EST MAY X REQ PHY/QHP 34132-0.65 [id number] Soni NAILS 10/02 [facility] EXERCISE CLASS 60425-0.65 [id number] 287 Diagnos is: ICD-10- CM Z72.3 Lack of physica l exercis e WILFRID ABREU 10/06 [facility] HC PRO PHONE CALL 5-10 MIN 04651-6.65 [id number] Diagnos is: ICD-10- CM Z72.3 Lack of physica l exercis e AR WINTER 10/12 [facility] Outpatient Encounter 42584-9.65 [id number] 10/13 [facility] Outpatient Encounter 60491-3.65 [id number] 10/14 [facility] [place] [facility] OFF/OP EST MAY X REQ PHY/QHP 93412-1.65 [id number] Diagnos is: ICD-10- CM Z71.9 Melter Helper ing, 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 NEGRITA WARRENROSALVA 10/[address] [place] [facility] EXERCISE CLASS 00817-4.65 [id number] 226 Diagnos is: ICD-10- CM Z72.3 Lack of physica l exercis e RUSSELL,BENJ BROWNING P 10/19 [facility] [place] [facility] OFFICE O/P EST LOW 20 MIN 18158-1.65 [id number] 159 Diagnos is: ICD-10- CM 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, 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 SAMPLES,RO CINDA CYNDI 10/20 [place] [facility] Outpatient Encounter [id number] [id number] 10/20 [facility] EXERCISE CLASS 12724-2.65 [id number] 610 Diagnos is: ICD-10- CM Z72.3 Lack of physica l exercis e Michael WARNER 10/22 [facility] EXERCISE CLASS 49462-7.65 [id number] 522 Diagnos is: ICD-10- CM Z72.3 Lack of physica l exercis e RUSSELL,BENJ BROWNING P 10/26 [facility] EXERCISE CLASS 52028-2.65 [id number] 217 Diagnos is: ICD-10- CM Z72.3 Lack of physica l exercis e ANTONROSA MARIAGREG E 10/29 [facility] EXERCISE CLASS 33859-9.65 [id number] 922 Diagnos is: ICD-10- CM Z72.3 Lack of physica l exercis e RUSSELL,BENJ BROWNING P 11/02 [facility] EXERCISE CLASS 03777-0.65 [id number] Diagnos is: ICD-10- CM Z72.3 Lack of physica l exercis e LUIS CARLOS COHN 11/03 [facility] EXERCISE CLASS 91996-6.65 [id number] 543 Diagnos is: ICD-10- CM Z72.3 Lack of physica l exercis e Michael WARNER MY Neal 11/05 [facility] EXERCISE CLASS 34586-5.65 [id number] 976 Diagnos is: ICD-10- CM Z72.3 Lack of physica l exercis e RUSSELL,BENJ BROWNING P 11/09 [facility] OFFICE O/P EST MOD 30 MIN 47880-7.65 [id number] Diagnos is: ICD-10- CM F41.1 General ized anxiety disorde r TATE THOMPSON 11/19 [facility] Outpatient Encounter 32125-3.65 [id number] 1 11/19 [facility] OFF/OP CNSLTJ NEW/EST MOD 40 03803-5.65 [id number] 6 Diagnos is: ICD-10- CM R10.10 Upper abdomin al pain, 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 PEDRITO BLANC TTHEW H 11/20 [facility] OFFICE O/P EST MOD 30 MIN 98016-6.65 [id number] 6 Diagnos is: ICD-10- CM 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, 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 ALEXX ARANDA LLIAM E III 11/30 [facility] EXERCISE CLASS 05539-0.65 [id number] 561 Diagnos is: ICD-10- CM Z72.3 Lack of physica l exercis e RUSSELL,BENJ BROWNING P 01/11 [facility] EXERCISE CLASS 76511-5.65 [id number] 557 Diagnos is: ICD-10- CM Z72.3 Lack of physica l exercis e Michael WARNER MY L 01/14 [facility] EXERCISE CLASS 18633-0.65 [id number] Diagnos is: ICD-10- CM Z72.3 Lack of physica l exercis e RUSSELL,BENJ BROWNING P 01/18 [facility] EXERCISE CLASS 77690-9.65 [id number] 421 Diagnos is: ICD-10- CM Z72.3 Lack of physica l exercis e RUSSELL,BENJ BROWNING P 01/25 [facility] EXERCISE CLASS 39790-4.65 [id number] 227 Diagnos is: ICD-10- CM Z72.3 Lack of physica l exercis e RAMÓN ARCHER NNAH J 01/26 [facility] Outpatient Encounter 52770-6.65 [id number] 01/27 [facility] Outpatient Encounter [id number] [id number] Romeo BLANCO 01/27 [facility] EX[facility]ISE CLASS 57133-2.65 [id number] 434 Diagnos is: ICD-10- CM Z72.3 Lack of physica l exercis e AR WINTER S 02/02 [facility] Outpatient Encounter [id number] [id number] 02/04 [facility] OFFICE O/P EST MOD 30 MIN 68516-3.65 [id number] Diagnos is: ICD-10- CM Z01.818 Encount er for other preproc edural examina LUCIEN Cabezas 02/04 [facility] OFFICE O/P EST SF 10 MIN 38717-8.65 [id number] 1 Diagnos is: ICD-10- CM R93.2 Abnorma l finding s on dx imaging of liver and biliary tract BRENDAN IRELAND S 02/04 [facility] Outpatient Encounter 10569-4.65 [id number] 02/04 [facility] Outpatient Encounter 48328-6.65 [id number] JEF FARNSWORTH E 02/04 [facility] EXERCISE CLASS 64493-1.65 [id number] Diagnos is: ICD-10- CM Z72.3 Lack of physica l exercis e DEVI WELLS P 02/08 [facility] PT EDUCATION NOC GROUP 27997-5.65 [id number] Diagnos is: ICD-10- CM Z72.3 Lack of physica l exercis e RAMÓN ARCHER 02/09 [facility] PT EDUCATION NOC GROUP 73851-6.65 [id number] 706 Diagnos is: ICD-10- CM Z72.3 Lack of physica l exercis e ANTONROSA MARIA GREG Karel 02/11 [facility] [place] [address]-8.65 [id number] Diagnos is: ICD-10- CM E11.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 ations Devante PRINGLE 02/23 [facility] OFFICE O/P EST LOW 20 MIN 52731-9.65 [id number] 006 Diagnos is: ICD-10- CM F41.1 General ized anxiety disorde r TATE THOMPSON 02/24 [facility] Outpatient Encounter [id number] [id number] JENNIFER SAEZ 02/24 [facility] PT EDUCATION NOC GROUP 08751-5.65 [id number] 523 Diagnos is: ICD-10- CM Z72.3 Lack of physica l exercis e Michael WARNER 02/25 [facility] OFFICE O/P EST LOW 20 MIN 55657-0.65 [id number] 5 Diagnos is: ICD-10- CM 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 JOSE RAFAEL Caballero 03/01 [facility] Outpatient Encounter 02834-5.65 [id number] 03/01 [facility] Outpatient Encounter [id number] [id number] 03/02 [facility] EXERCISE CLASS 97485-4.65 [id number] Diagnos is: ICD-10- CM Z72.3 Lack of physica l exercis e GREG ANDREA 03/04 [facility] PT EDUCATION NOC GROUP 39494-1.65 [id number] 562 Diagnos is: ICD-10- CM Z72.3 Lack of physica l exercis e LUIS CARLOS COHN 03/09 [facility] PHYSICAL PERFORMANC E TEST 43463-5.65 [id number] 720 Diagnos is: ICD-10- CM Z72.3 Lack of physica l exercis e AR WINTER 03/10 [facility] EXERCISE CLASS 22970-6.65 [id number] 145 Diagnos is: ICD-10- CM Z72.3 Lack of physica l exercis e Michael WARNER 03/11 [facility] Outpatient Encounter [id number] [id number] 03/15 [facility] EXERCISE CLASS 51806-8.65 [id number] 124 Diagnos is: ICD-10- CM Z72.3 Lack of physica l exercis e RAMÓN ARCHER 03/16 [facility] EXERCISE CLASS 67307-5.65 [id number] 404 Diagnos is: ICD-10- CM Z72.3 Lack of physica l exercis e RAMÓN ARCHER J 03/18 [facility] PT EDUCATION NOC GROUP 29147-2.65 [id number] Diagnos is: ICD-10- CM Z72.3 Lack of physica l exercis e LUIS CARLOS COHN 03/23 [facility] HC PRO PHONE CALL 5-10 MIN 91950-4.65 [id number] YI MARISCAL 03/23 [facility] PT EDUCATION NOC GROUP 17632-9.65 [id number] Diagnos is: ICD-10- CM Z72.3 Lack of physica l exercis e GREG ANDREA 03/25 [facility] [place] [facility] OFFICE O/P EST MOD 30 MIN 32892-0.65 [id number] Diagnos is: ICD-10- CM 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 sophia SONNY SCHMIDT 03/26 [facility] EXERCISE CLASS 92119-2.65 [id number] 310 Diagnos is: ICD-10- CM Z72.3 Lack of physica l exercis e DEVI WELLS P 03/29 [facility] Outpatient Encounter [id number] [id number] Diagnos is: ICD-10- CM 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 NOAH APARICIO 03/29 [facility] EXERCISE CLASS 73500-2.65 [id number] Diagnos is: ICD-10- CM Z72.3 Lack of physica l exercis e TIMMY,A MY L 04/01 [facility] PT EDUCATION NOC GROUP 41373-7.65 [id number] Diagnos is: ICD-10- CM Z72.3 Lack of physica l exercis e GREG ANDREA E 04/08 [facility] OFFICE O/P EST MOD 30 MIN 56489-5.65 [id number] 7 Diagnos is: ICD-10- CM Z01.818 Encount er for other preproc edural examina FABRIZIO Shoemaker 04/12 [facility] Outpatient Encounter 00901-4.65 [id number] 04/14 [facility] OFF/OP EST MAY X REQ PHY/QHP 40605-4.65 [id number] Diagnos is: ICD-10- CM 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 Outpatient Encounter 94097-3.65 [id number] 05/04 [facility] PT EDUCATION NOC GROUP 73731-6.65 [id number] 958 Diagnos is: ICD-10- CM Z72.3 Lack of physica l exercis e SUZIMELGAR NNAH J 05/06 [facility] OFF/OP EST MAY X REQ PHY/QHP 76552-4.65 [id number] Diagnos is: ICD-10- CM E11.40 Type 2 diabete s mellitu s with diabeti c neuropa thy, unsp NEGRITA WARREN 05/06 [facility] Outpatient Encounter 28680-2.65 [id number] 05/07 [facility] OFFICE O/P EST MOD 30 MIN 93074-0.65 [id number] 3 Diagnos is: ICD-10- CM 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 ddCARMELA Mederos 05/10 [facility] REAGENT STRIP/BLOO D GLUCOSE 54686-4.65 [id number] 1 Diagnos is: ICD-10- CM 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 HILENRIQUELO RI D 05/10 [facility] OFFICE O/P EST MOD 30 MIN 50366-6.65 [id number] 9 Diagnos is: ICD-10- CM Z01.818 Encount er for other preproc edural examina GILLIAN Soto IEL P 05/10 [facility] 55428-3.65 [id number] 4 05/10 [facility] Outpatient Encounter 75163-1.65 [id number] 8 GILLIAN BARNES P 05/10 [facility] Outpatient Encounter 18200-0.65 [id number] 4 FANI OSCAR 05/10 [facility] Outpatient Encounter 01269-0.65 [id number] 1 JOSE RAFAEL MATHIS 05/10 [facility] Outpatient Encounter 75235-1.65 [id number] 9 05/10 [facility] LAPAROSCOP IC CHOLECYSTE CTOMY 43202-8.65 [id number] 2 RODRIGO RAMIREZ Wes 05/10 [facility] Outpatient Encounter 34017-7.65 [id number] 1 KARINA RAMIREZOMID Harvey 05/10 [facility] Outpatient Encounter 80518-0.65 [id number] 1 FANI OSCAR 05/10 [facility] HOSP IP/OBS SAME DATE MOD 70 64182-3.65 [id number] Diagnos is: ICD-10- CM K81.1 Chronic cholecy stitis JOSE RAFAEL MATHIS 05/10 [facility] Outpatient Encounter 98300-2.65 [id number] 2 CHAROWILFRID Siddiqui A 05/10 [facility] Inpatient Encounter 89698-6.65 [id number] 9 Admit Reason: CLAUDETTE GUPTAVIVIANACARMELA LANDEROS 05/10 [facility] Inpatient Encounter 81455-0.65 [id number] 0 JOSIAH ZEE L 05/10 [facility] Inpatient Encounter 26460-8.65 [id number] 5 MELIDA ZEEU L 05/10 [facility] Inpatient Encounter 41308-7.65 [id number] 0 JOSIAH ZEE L 05/10 [facility] Inpatient Encounter 57045-4.65 [id number] 7 BRIAN HUERTA 05/10 [facility] Inpatient Encounter 29260-4.65 [id number] 1 RUSSELL ZUNIGA RALDINE 05/11 [facility] Inpatient Encounter 69333-3.65 [id number] 0 EFRAIN,GE RALDINE 05/11 [facility] Inpatient Encounter 83850-0.65 [id number] 5 EFRAIN,GE RALDINE 05/11 [facility] OFF/OP EST MAY X REQ PHY/QHP 32203-0.65 [id number] 7 Diagnos is: ICD-10- CM K81.1 Chronic cholecy stitis JOSE RAFAEL MATHIS LILIA K 05/11 [facility] Inpatient Encounter 07469-1.65 [id number] 4 YES[facility] SWARTZ 05[facility]11 [facility] Outpatient Encounter 99375-3.65 [id number] 9 SEYMOUR GOMEZ 05/11 [facility] Outpatient Encounter 71091-1.65 [id number] 1 05/12 [facility] OFF/OP EST OCTOBER X REQ PHY/QHP 74421-6.65 [id number] Diagnos is: ICD-10- CM Z71.9 Melter Helper ing, unspeci NEGRITA Yuan 05/12 [facility] POSTOP FOLLOW-UP VISIT 36112-7.65 [id number] 8 Diagnos is: ICD-10- CM 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 JOSE RAFAEL MATHIS LILIA K 05/19 [facility] Outpatient Encounter 41055-1.65 [id number] 05/31 [facility] Outpatient Encounter 58318-1.65 [id number] 05/31 [facility] Outpatient Encounter 73880-4.65 [id number] 2 JENNIFER SAEZ 06/03 [facility] EXERCISE CLASS 31434-9.65 [id number] Diagnos is: ICD-10- CM Z72.3 Lack of physica l exercis e RUSSELL,BENJ BROWNING P 06/07 [facility] PT EDUCATION NOC GROUP 15550-0.65 [id number] Diagnos is: ICD-10- CM Z72.3 Lack of physica l exercis e Michael WARNER 06/10 [facility] Outpatient Encounter [id number] 06/14 [facility] 47425-7.65 [id number] Diagnos is: ICD-10- CM Z72.3 Lack of physica l exercis e AR WINTER 06/21 [facility] INDIVID 42634-4.65 [id number] 148 Diagnos is: ICD-10- CM Z72.3 Lack of physica l exercis e GREG ANDREA 06/28 [facility] 02126-8.65 [id number] 002 Diagnos is: ICD-10- CM Z72.3 Lack of physica l exercis e RAMÓN ARCHER NNAH J 06/29 [facility] 72824-1.65 [id number] Diagnos is: ICD-10- CM Z72.3 Lack of physica l exercis e GREG ANDREA 07/01 [facility] Outpatient Encounter [id number] [id number] 07/02 [facility] 71741-5.65 [id number] Diagnos is: ICD-10- CM Z72.3 Lack of physica l exercis e RAMÓN ARCHER NNTIM J 07/06 [facility] 60249-7.65 [id number] 552 Diagnos is: ICD-10- CM Z72.3 Lack of physica l exercis e Michael WARNER MY Neal 07/08 [facility] 13533-8.65 [id number] 458 Diagnos is: ICD-10- CM Z72.3 Lack of physica l exercis e LALITLUIS CARLOS GIBSON SEEMA 07/13 [facility] 00668-6.65 [id number] 755 Diagnos is: ICD-10- CM Z72.3 Lack of physica l exercis e DEVI WELLS P 07/19 [facility] 66309-9.65 [id number] 778 Diagnos is: ICD-10- CM Z72.3 Lack of physica l exercis e AR WINTER 07/20 [facility] Outpatient Encounter [id number] 07/20 [facility] 82347-0.65 [id number] Diagnos is: ICD-10- CM Z72.3 Lack of physica l exercis e WILFRID ABREU E 07/26 [facility] 22567-8.65 [id number] 318 Diagnos is: ICD-10- CM Z72.3 Lack of physica l exercis e AR WINTER 07/27 [facility] 66518-2.65 [id number] 447 Diagnos is: ICD-10- CM Z72.3 Lack of physica l exercis e Michael WARNER 07/29 [facility] 25529-1.65 [id number] 694 Diagnos is: ICD-10- CM Z72.3 Lack of physica l exercis e RAMÓN ARCHER NNAH J 08/03 [facility] 97595-0.65 [id number] 293 Diagnos is: ICD-10- CM Z72.3 Lack of physica l exercis e GREG ANDREA 08/05 [facility] EXERCISE CLASS 28515-6.65 [id number] 451 Diagnos is: ICD-10- CM Z72.3 Lack of physica l exercis e DEVI WELLS 08/16 [facility] Courtney [facility] OFFICE O/P EST SF 10 MIN 71206-8.62 [id number] 65 Diagnos is: ICD-10- CM Z76.0 Encount er for issue of repeat prescri ption RISELORENZO Serra 08/18 [facility] Samules [facility] Samuels [facility] HEARING AID REPAIR/MOD IFYING 35655-3.62 [id number] 97 Diagnos is: ICD-10- CM Z46.1 Encount er for fitting and adjustm ent of hearing aid GOYO ACOSTA SAMI 08/19 [facility] Samuels [facility] EDUCATION [facility]OC [facility] 36119-0.65 [id number] 236 Diagnos is: ICD-10- CM Z72.3 Lack of physica l exercis e AR WINTER S 08/24 [facility] 49535-4.65 [id number] 841 Diagnos is: ICD-10- CM Z72.3 Lack of physica l exercis e RUSSELLDEVI Vinson BROWNING P 09/06 [facility] EXERCISE CLASS 07111-0.65 [id number] 490 Diagnos is: ICD-10- CM Z72.3 Lack of physica l exercis e AR WINTER S 09/14 [facility] 15859-2.65 [id number] 297 Diagnos is: ICD-10- CM Z72.3 Lack of physica l exercis e Michael WARNER 09/16 [facility] 91443-9.65 [id number] 800 Diagnos is: ICD-10- CM Z72.3 Lack of physica l exercis e RUSSELLDEVI BROWNING P 09/20 [facility] PH1 ASSMT&MGMT NQHP 5-10 [id number] [id number] YI MARISCAL 09/21 [facility] OFF[facility] O/P EST MOD 30 MIN [id number] [id number] Diagnos is: ICD-10- CM 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 EDU&TRN PT SELF-MGMT NQHP 1 [id number] [id number] Diagnos is: ICD-10- CM Z72.3 Lack of physica l exercis e GREG ANDREA 09/23 [facility] [id number] [id number] Diagnos is: ICD-10- CM Z72.3 Lack of physica l exercis e AR WINTER 09/27 [facility] [id number] [id number] Diagnos is: ICD-10- CM Z72.3 Lack of physica l exercis e Michael WARNER 09/30 [facility] Outpatient Encounter [id number] [id number] LAINE BRIDGES RLA F 10/04 [facility] Outpatient Encounter [id number] [id number] LAINE BRIDGES RLA F 10/04 [facility] ED[facility]OC [facility] [id number] [id number] Diagnos is: ICD-10- CM Z72.3 Lack of physica l exercis e RUSSELL,BENJ BROWNING P 10/04 [facility] EDU&TRN PT SELF-MGMT NQHP 1 [id number] [id number] 562 Diagnos is: ICD-10- CM Z72.3 Lack of physica l exercis e RUSSELL,BENJ BROWNING P 10/18 [facility] [id number] [id number] Diagnos is: ICD-10- CM Z72.3 Lack of physica l exercis e RUSSELL,BENJ BROWNING P 11/01 [facility] HEARING AID REPAIR/MOD IFYING [id number] [id number] Diagnos is: ICD-10- CM Z46.1 Encount er for fitting and adjustm ent of hearing aid JAMES BARRAGAN Chris 11/05 [facility] EXERCISE CLASS 30570-0.65 [id number] Diagnos is: ICD-10- CM Z72.3 Lack of physica l AR Armstrong S 11/09 [facility] Outpatient Encounter [id number] [id number] 3 11/09 [facility] Outpatient Encounter [id number] [id number] 4 11/09 [facility] EX[facility]ISE [facility] 60730-6.65 [id number] Diagnos is: ICD-10- CM Z72.3 Lack of physica l AR Armstrong S 11/11 [facility] [id number] [id number] Diagnos is: ICD-10- CM Z72.3 Lack of physica l AR Armstrong S 11/16 [facility] Outpatient Encounter [id number] [id number] 3 11/16 [facility] Outpatient Encounter [id number] [id number] 4 11/26 [facility] Outpatient Encounter [id number] [id number] 11/29 [facility] PH1 ASSMT&MGMT NQHP 5-10 [id number] [id number] YI MARISCAL 12/03 [facility] EDUCATION [facility]OC GROUP [id number] [id number] 103 Diagnos is: ICD-10- CM Z72.3 Lack of physica l exercis e RUSSELL,BENJ BROWNING P 12/06 [facility] OFF[facility] O/P EST MOD 30 MIN [id number] [id number] Diagnos is: ICD-10- CM E11.40 Type 2 diabete s mellitu s with diabeti c neuropa thy, unsp SAMPLES,RO CINDA CYNDI 12/07 [facility] Outpatient Encounter [id number] [id number] 3 12/13 [facility] Outpatient Encounter [id number] [id number] 12/14 [facility] OFFICE O/P EST MOD 30 MIN [id number] [id number] Diagnos is: ICD-10- CM Z98.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 ROXANNE ASHLEY 12/27 [facility] Outpatient Encounter [id number] [id number] 12/27 [facility] Outpatient Encounter [id number] [id number] 12/27 [facility] Outpatient Encounter [id number] [id number] 12/[address] [facility] [address] [facility] Outpatient Encounter [id number] [id number] 01/07 [facility] Outpatient Encounter [id number] [id number] 01/11 [facility] Outpatient Encounter [id number] [id number] 6 01/14 [facility] [id number] [id number] 5 01/21 [facility] Outpatient Encounter [id number] [id number] 7 01/25 [facility] Outpatient Encounter [id number] [id number] 5 01/27 [facility] [id number] [id number] 6 01/28 [facility] OFF[facility] O/P EST MOD 30 MIN [id number] [id number] Diagnos is: ICD-10- CM 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 PH1 ASSMT&MGMT NQHP -30 [id number] [id number] Diagnos is: ICD-10- CM I10 Essenti al (primar y) hypertCAM Burdick RA L 02/03 [facility] Outpatient Encounter [id number] [id number] CAM TERRELL RA L 02/03 [facility] PH1 ASSMT&MGMT NQHP 5-10 46011-4.65 [id number] Diagnos is: ICD-10- CM I10 Essenti al (primar y) hyperte gabriella TERRELLAUD RA L 02/03 [facility] PH1 ASSMT&MGMT NQHP 5-10 [id number] [id number] MARISCALYI 02/03 [facility] Outpatient Encounter [id number] [id number] 02/08 [facility] Outpatient Encounter [id number] [id number] 1 02/09 [facility] Outpatient Encounter [id number] [id number] 0 02/10 [facility] Outpatient Encounter [id number] [id number] 9 02/10 [facility] PH1 ASSMT&MGMT NQHP -30 [id number] [id number] 5 Diagnos is: ICD-10- CM I10 Essenti al (primar y) hyperte gabriella TERRELL,AUD RA L 02/10 [facility] Procedures Combined list of: 1) Procedures from Department of [facility] facilities going back up to thelast 18 months, not all VA non-surgical procedures are included; 2) All procedures from the Department of [facility] facilities. Procedure Procedure Type Code Date Perfomer Comments Sourc e LAPAROSCOPIC CHOLECYSTECTOMY LAPAROSCOPIC CHOLECYSTECTOMY 24883 05/10/20 24 [facility] Social History Combined list of available smoking, tobacco, and other social history from Department of [facility] and [facility] facilities. 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 DoD Plan of Care List of future care activities from Department [facility] facilities. Additional future care activities may be listed in the Assessment and Plan section. Date/Time Care Activity Care Activity Detail Facili ty 02/17/2025 AMBULATORY - MEDICINE AMBULATORY - MEDICI NE [facility] Advance Directives List of completed, amended, or rescinded Advance Directives on record at Department [facility] facilities. An actual copy of the Directive is not included. Date Advance Directive Provider Source 01/14/2022 ADVANCE DIRECTIVE DISCUSSION SHEA WINTER [facility]
--- OUTSIDE RECORDS SUMMARY | 2025-02-14 04:25 | XMS_ITS | Clinical Summary ---
Author Organization [facility] Address [address] [place] [address] Care Team Providers Care Art Objects Supervisor Name Role Phone Pauly OWEN MD, Yayo Serra Primary Care Provider Pablito Hinton MD Unavailable [phone] LongoPaul CUTTER INSPECTOR, BABY FORMULA WORKER Unavailable Allergies Active Allergy Reactions Criticality Noted [...] on file Legal Sex Male 3:03 AM POULTRY HATCHERY MAN Gender Identity Not on file Sexual Orientation Not on file Occupation Industry Job Start Date Job End Date Retired Not on file Not on file Not on file Last Filed Vital Signs Vital Sign Reading Time Taken Comments Blood Pressure 124/50 07/12/2021 10:33 AM POULTRY HATCHERY MAN Pulse 56 07/12/2021 10:33 AM POULTRY HATCHERY MAN Temperature - - Respiratory Rate 16 07/12/2021 10:33 AM POULTRY HATCHERY MAN Oxygen Saturation - - Inhaled Oxygen Concentration - - Weight 105.7 kg (233 lb) 07/12/2021 10:33 AM POULTRY HATCHERY MAN Height 182.9 cm (6') 07/12/2021 10:33 AM POULTRY HATCHERY MAN Body Mass Index 31.6 07/12/2021 10:33 AM POULTRY HATCHERY MAN Plan of Treatment Health Maintenance Due Date [...] Recently Relevant to Health Maintenance Insurance MEDICARE [employer] on file Care Teams Art Objects Supervisor Relationship Specialty Start Date End Date Yayo Coats II, MD [address] [place] [address] PCP - General 12/17/09 Pablito Hinton MD [address], [place] [id number] Consulting Physician Interventional Cardiology 10/16/15 Paul Longo, CUTTER INSPECTOR, BABY FORMULA WORKER [address] [place] [address] Nurse Practitioner Advanced Practice Nurse 09/14/20
--- OUTSIDE RECORDS SUMMARY | 2025-02-14 04:26 | XMS_ITS | Clinical Summary ---
Author Organization [facility] First Address [address] [place] [address] Care Team Providers Care Radio Engineer Name Role Phone Unavailable Primary Care [...] 5 11:13 AM CDT 01/07/20 25 Active cyclobenzaprine (FLEXERIL) 10 mg tablet 1 tablet BEDTIME (route: oral) 01/08/20 25 Active metoprolol succinate (Toprol XL) 25 mg Extended Release 24 hour tablet Take 1 Tablet (25 mg) by mouth daily. 90 Tablet 3 01/28/20 25 Active HYDROcodone-aceta minophen (NORCO) 5-325 mg tabletIndications :Post-op pain Take 1 Tablet by mouth every 6 hours as needed for Pain, Moderate. Max Daily Amount: 4 Tablets 28 Tablet 02/05/20 25 Active metoprolol succinate (TOPROL XL) 100 mg Extended Release 24 hour tablet Take 50 mg by mouth daily. 025 Discontinued Irbesartan (AVAPRO) 75 mg tablet Take 75 mg by mouth daily. 03/26/20 24 025 Discontinued(Ne w contraindicatio n) HYDROcodone-aceta minophen (NORCO) [...] mouth daily. 025 Discontinued(Ne w contraindicatio n) HYDROcodone-aceta minophen (NORCO) 5-325 mg tabletIndications :Post-op pain Take 1 Tablet by mouth every 4 hours as needed for Pain, Moderate. Max Daily Amount: 6 Tablets 42 Tablet 01/28/20 25 025 Discontinued(Re order) atorvastatin (LIPITOR) 80 mg tablet Take 80 [...] JUNIOR MD Hyperlipidemia 01/27/2006 Overview (10/28/2024): MARYJO ZAIRE ASST Hypertensive heart disease 07/26/2004 Overview (10/28/2024): Conner HANNA Encounters Date Type Department Care Team Description 02/11/2025 Abstract [facility] Orthopedic Surgery - [address] [place] [address] Conner Degroot MD 02/04/2025 Refill [facility] Orthopedic Surgery - [address] [place] [address] Michael Perez DO Post-op pain 01/31/2025 Telephone [facility] Heart and Vascular - [address] [place] [address] Jasvir Coffey MD Blood Pressure Check 01/27/2025 3:00 PM CDT Office Visit [facility] Heart and Vascular - [address] [place] [address] Jasvir Coffey MD Coronary artery disease - PCI x 3 in 2011 (Primary Dx); Type 2 diabetes mellitus without complication, without long-term current use of insulin ([facility]); Aneurysm of ascending aorta without rupture; Dyslipidemia; Hypotension, unspecified hypotension type 01/26/2025 Refill [facility] Orthopedic Surgery - [address] [place] [address] Conner Degroot MD Post-op pain 01/21/2025 Telephone [facility] Heart and Vascular - [address] [place] [address] Jasvir Coffey MD Information 01/20/2025 10:00 AM CDT Clinical Support [facility] Heart and Vascular - [address] [place] [address] Hypotension, unspecified hypotension type (Primary Dx) 01/20/2025 9:20 AM CDT Office Visit [facility] Orthopedic Surgery - [address] [place] [address] Conner Degroot MD Postoperative visit (Primary Dx); Aftercare following right knee joint replacement surgery; Presence of right artificial knee joint; S/P robot-assisted surgical procedure 01/17/2025 Refill [facility] Orthopedic Surgery - [address] [place] [address] Conner Degroot MD Post-op pain (Primary Dx); Primary osteoarthritis of right knee 01/07/2025 Telephone [facility] Orthopedic Surgery - [address] [place] [address] Conner Degroot MD Question 01/05/2025 10:15 AM CDT Anesthesia Event [facility] Operating Room [address] [place] [address] Cam Marie MD 01/05/2025 9:40 AM CDT - 01/05/2025 12:40 PM CDT Surgery [facility] Operating Room [address] [place] [address] Conner Degroot MD KNEE ARTHROPLASTY TOTAL REPLACEMENT COMPUTER/ROBOTIC ASSISTED 01/05/2025 8:01 AM CDT - 01/06/2025 1:05 PM CDT Hospital Encounter [facility] Medical Surgical Pediatrics [address] [place] [address] Conner Degroot MD Primary osteoarthritis of right knee Discharge Disposition: Home Health Care c 01/05/2025 Travel 01/04/2025 Orders Only [facility] Orthopedic Surgery - [address] [place] [address] Conner Degroot MD Orthopedic aftercare (Primary Dx) 12/31/2024 Prep for Surgery [facility] Orthopedic Surgery - [address] [place] [address] Conner Degroot MD Primary osteoarthritis of right knee (Primary Dx) 12/17/2024 Orders Only [facility] Orthopedic Surgery - [address] [place] [address] Conner Degroot MD Primary osteoarthritis of right knee (Primary Dx) 12/13/2024 10:53 AM CDT - 12/13/2024 11:59 PM CDT Hospital Encounter [facility] [address] [place] [address] Conner Degroot MD Discharge Disposition: Home or Self Care 12/13/2024 10:04 AM CDT - 12/13/2024 11:59 PM CDT Hospital En[facility] [address] [place] [address] Conner Degroot MD Discharge Disposition: Home or Self Care 12/13/2024 10:02 AM CDT - 12/13/2024 11:59 PM CDT Hospital Encounter [facility] [address] [place] [address] Conner Degroot MD Discharge Disposition: Home or Self Care 12/13/2024 9:59 AM CDT - 12/13/2024 11:59 PM CDT [facility] En[facility] [address] [place] [address] Conner Degroot MD Preadmission Screening, Nurse Discharge Disposition: Home or Self Care 12/13/2024 8:25 AM CDT - 12/13/2024 11:59 PM CDT Hospital Encounter [facility] [address] [place] [address] Conner Degroot MD Meier, Gary E, Physical Therapist Discharge Disposition: Home or Self Care 12/13/2024 Travel 12/13/2024 Orders Only [facility] Orthopedic Surgery - [address] [place] [address] Conner Degroot MD Primary osteoarthritis of right knee (Primary Dx) 12/10/2024 Telephone [facility] Orthopedic Surgery - [address] [place] [address] Reginald Queen, Surgery 12/06/2024 External Device Data Initial Department [address] [place]ERN[place]IN: [place] [address] Noe Emergency, 12/06/2024 Telephone [facility] Orthopedic Surgery - [address] [place] [address] Conner Degroot MD Medication Question 12/06/2024 Prep for Surgery [facility] Orthopedic Surgery - [address] [place] [address] Conner Degroot MD Primary osteoarthritis of right knee (Primary Dx); Monitoring for anticoagulant use 11/18/2024 Abstract [facility] Orthopedic Surgery - [address] [place] [address] Conner Degroot MD from Last 3 Months Social History Tobacco Use Types Packs/Day Years Used Date Smoking Tobacco: Never Smokeless Tobacco: Never Alcohol Use Standard Drinks/Week Comments Not Currently 0 (1 standard drink = 0.6 oz pur e alcohol) Feeling Safe Answer Date Recorded Are you in a relationship wi th someone who hurts you emotionally and/or physically? No 01/05/2025 Food Insecurity Answer Date Recorded Patient needs follow up regardin 12/13/2024 Transportation Needs Answer Date Record ed Patient needs follow up regardin 12/13/2024 Utility Needs Answer Date Recorded Patient needs follow up regardin 12/13/2024 Sex and Gender Information Value Date Recorded [...] 03/03/2025 10:30 AM CDT Office Visit [facility] Orthopedic Surgery - [address] [place] [address] Conner Degroot MD [address] [place] [address] 03/03/2025 11:45 AM CDT Office Visit [facility] Heart and Vascular - [address] [place] [address] Jasvir Coffey MD [address] [place] [phone] 04/28/2025 1:45 PM LINE WORKER Office Visit [facility] Heart and Vascular - [address] [place] [address] Jasvir Coffey MD [address] [place] [address] Health Maintenance Due Date Last Done Comments DIABETES ANNUAL FOOT EXAM 1961 DIABETES MICROALBUMIN ANNUAL SCREEN 1961 RSV VACCINE (60+ or ) (1 - 1-dose 75+ series) 2018 DTAP/TDAP/TD VACCINES (3 - T d or Tdap) 03/05/2022 03/05/2012, 02/03/2012 COVID-19 Vaccine (3 - 2023-2 5 season) 2024 08/10/2020, 07/13/2020 [...] years Discontinued Medical Devices Implanted Type Area Supervisor Steno Pool Device Identifier Shelf Expiration Date Model / Serial / Lot Cement Bone Biomet R 1x40 [id number] - [id number] Implanted:Qty: 1 on 01/05/2025 by Conner Degroot MD at [facility] Cement Right: Knee [employer]ID [employer] 04/22/2027 [id number] / / [id number] Cement Bone Biomet R 1x40 [id number] - [id number] Implanted:Qty: 1 on 01/05/2025 by Conner Degroot MD at [facility] Cement Right: Knee [employer] 05/22/2027 [id number] / / [id number] Cement Bone Biomet R 1x40 [id number] - [id number] Implanted:Qty: 1 on 01/05/2025 by Conner Degroot MD at [facility] Cement Right: Knee [employer] 05/22/2027 [id number] / / [id number] Patella Persona Poly 38mm [id number] - [id number] Implanted:Qty: 1 on 01/05/2025 by Conner Degroot MD at [facility] Knee Right: Knee [employer] 10/04/2029 [id number] / / [id number] Comp Tib Persona 5d Szg Rt 33-0233-148-02 - [id number] Implanted:Qty: 1 on 01/05/2025 by Conner Degroot MD at [facility] Knee Right: Knee [employer] [id number] 2 01/29/2034 [id number] / / [id number] Comp Fem Persona Cr Sz12 Rt 19-3258-811-02 - [id number] Implanted:Qty: 1 on 01/05/2025 by Conner Degroot MD at [facility] Knee Right: Knee [employer] [id number] 06/26/2034 [id number] / / [id number] Insert Tib Persona Vivacit-E 12 G-H 10mm Rt Cr 67-9938-181-10 - [id number] Implanted:Qty: 1 on 01/05/2025 by Conner Degroot MD at [facility] Knee Right: Knee [employer] [id number] 08/23/2029 [id number] / / [id number] Screw Persona 2.5x25mm [id number] - [id number] Implanted:Qty: 1 on 01/05/2025 by Conner Degroot MD at [facility] Screw Right: Knee [employer] 12/01/2034 [id number] / / [id number] Procedures Procedure Name Priority Date/Time Associated Diagnosis [...] VW RIGHT Routine 01/05/2025 1:17 PM CDT [place] ANESTHESIA BLOCK PB PLACEHOLDER CHARGE Routine 01/05/2025 1:13 PM CDT POC GLUCOSE Routine 01/05/2025 1:06 PM CDT [place] ANES INSERT ENDOTRACHEAL AIRWAY Routine 01/05/2025 10:23 AM CDT [place] ARTHRP KNE CONDYLE&PLATU MEDIAL&LAT COMPARTMENTS 01/05/2025 9:40 AM CDT Primary osteoarthritis of right knee Case Notes [facility] [place] CPTR-ASST SURGICAL NAVIGATION IMAGE-LESS 01/05/2025 9:40 AM [...] complication, without long-term current use of insulin ([facility]) Aneurysm of ascending aorta without rupture Dyslipidemia [...] [facility] [address] BAKER# [id number] [address] [place] [address] [place] [address] * (ABNORMAL) POC GLUCOSE (01/06/2025 7:59 AM CDT) Only the most recent of6 resultswithin the time period is included. GLUCOSE POC 151(H) 74 - 99 mg/dL 01/06/2025 7:59 AM CDT [facility] SPECIMEN SOURCE, GLUCOSE POC Whole Blood 01/06/2025 7:59 AM T [facility] Blood, whole 01/06/2025 7:59 AM CDT 01/06/2025 8:07 AM CDT Conner Degroot MD POINT OF CARE TESTING Final Result [facility] CLIA# [id number] [address] [place] [address] * (ABNORMAL) CBC WITH DIFFERENTIAL (01/06/2025 4:55 AM CDT) Only the most recent of2 resultswithin the time period is included. WBC 12.4(H) 4.0 - 9.8 K/uL 01/06/2025 5:02 AM [facility] Comment:ANC = 9.77K/uL RBC 3.71(L) 4.50 - 5.40 M/uL 01/06/2025 5:02 AM [facility] HEMOGLOBIN 12.3(L) 13.6 - 16.5 g/dL 01/06/2025 5:02 AM [facility] HEMATOCRIT 36.5(L) 40.0 - 48.0 % 01/06/2025 5:02 AM [facility] MCV 98.4 82.0 - 99.0 fL 01/06/2025 5:02 AM [facility] MCH 33.2(H) 27.2 - 32.6 pg 01/06/2025 5:02 AM [facility] MCHC 33.7 31.5 - 35.5 g/dL 01/06/2025 5:02 AM [facility] RDW 12.3 11.5 - 14.5 % 01/06/2025 5:02 AM [facility] RDW-STDEV 44.8 37.1 - 48.7 fL 01/06/2025 5:02 AM [facility] PLATELETS 186 140 - 350 K/uL 01/06/2025 5:02 AM CDT [facility] [place] MPV 9.9 9.3 - 12.4 fL 01/06/2025 5:02 AM CDT [facility] [place] NEUTROPHILS 79 % 01/06/2025 5:02 AM CDT [facility] [place] LYMPHOCYTES 12 % 01/06/2025 5:02 AM CDT [facility] [place] MONOCYTES 9 % 01/06/2025 5:02 AM CDT [facility] [place] EOSINOPHILS 0 % 01/06/2025 5:02 AM CDT [facility] [place] BASOPHILS 0 % 01/06/2025 5:02 AM CDT [facility] [place] IMMATURE GRANULOCYTES 0 % 01/06/2025 5:02 AM CDT [facility] [place] NEUTROPHIL ABSOLUTE 9.77(H) 1.90 - 7.00 K/uL 01/06/2025 5:02 AM CDT [facility] [place] LYMPHOCYTE ABSOLUTE 1.51 0.70 - 4.50 K/uL 01/06/2025 5:02 AM CDT [facility] [place] MONOCYTE ABSOLUTE 1.09 0.10 - 1.30 K/uL 01/06/2025 5:02 AM CDT [facility] [place] EOSINOPHIL ABSOLUTE 0.00 0.00 - 0.70 K/uL 01/06/2025 5:02 AM CDT [facility] [place] BASOPHILS ABSOLUTE 0.02 0.00 - 0.20 K/uL 01/06/2025 5:02 AM CDT [facility] [place] IMMATURE GRANULOCYTES ABSOLUTE 0.03 0.00 - 0.03 K/uL 01/06/2025 5:02 AM CDT [facility] [place] Blood Venipuncture / Unknown 01/06/2025 4:55 AM CDT 01/06/2025 4:58 AM CDT us Conner Degroot MD HEMATOLOGY ORDERABLES Final Result [facility] [place] CLIA# [id number] [address] [place] [address] * (ABNORMAL) BASIC METABOLIC PANEL (01/06/2025 4:55 AM CDT) SODIUM 137 136 - 145 mmol/L 01/06/2025 5:21 AM [facility] POTASSIUM 4.1 3.5 - 4.9 mmol/L 01/06/2025 5:21 AM [facility] CHLORIDE 106 98 - 107 mmol/L 01/06/2025 5:21 AM [facility] CO2 20(L) 22 - 29 mmol/L 01/06/2025 5:21 AM [facility] CALCIUM 8.5(L) 8.6 - 10.2 mg/dL 01/06/2025 5:21 AM [facility] BUN 18 6 - 20 mg/dL 01/06/2025 5:21 AM [facility] CREATININE 1.08 0.67 - 1.17 mg/dL 01/06/2025 5:21 AM [facility] Comment:The GFR result is no t clinically significant on patients <18 or >70 years of age. GLUCOSE 182(H) 74 - 99 mg/dL 01/06/2025 5:21 AM [facility] GFR >60 mL/min/1.7 3 sq meter 01/06/2025 5:21 AM [facility] Comment:eGFR calculated with 2020 CKD-EPI equation. Vegetarian diet, extremely high or low muscle mass, and may affect results. Cystatin C with Glomerular Filtration Rate is a suitable alternative for these patients. ANION GAP 11 8 - 16 mmol/L 01/06/2025 5:21 AM [facility] Blood Venipuncture / Unknown 01/06/2025 4:55 AM CDT 01/06/2025 4:58 AM CDT us Conner Degroot MD CHEMISTRY ORDERABLES Final R esult [facility] CLIA# [id number] [address] [place] [address] * XR KNEE 1 OR 2 VW [...] of failure. DICTATION LOCATION: Location 4 us Conner Degroot MD DIAGNOSTIC IMAGING ORDERABLE S Final Result * [place] ANESTHESIA BLOCK PB PLACEHOLDER CHARGE (01/05/2025 1:13 [...] Canal Block Laterality: Right Injection technique: Single-shot [place] Identification: ultrasound guided Skin Infiltration: Lidocaine 2% [...] PROCEDURE/MINOR SURGICAL ORD ERABLES Final Result * [place] ANES INSERT ENDOTRACHEAL AIRWAY (01/05/2025 10:23 AM CDT) Narrative Tresa Knight CRNA - 01/05/2025 10:23 AM CDT Tresa Knight CRNA 01/05/2025 11:01 AM Airway Date/Time: 01/05/2025 10:23 AM Location: OR Plan: routine intubation Patient Identity Confirmed by: Verbally with patient and armband Airway: not difficult Staffing Performed: Student NA/AA Authorized by: Cam Marie MD Performed by: Germania Thomas (Student), RN Coin Collector: Tresa Knight CRNA Indications and Patient Condition: [...] VERIFICATION BLOOD GROUP (01/05/2025 8:13 AM CDT) Pathologist [facility] ABO GROUP A 01/05/2025 9:33 AM CDT [facility] [place] RH (D) TYPE Negative 01/05/2025 9:33 AM CDT [facility] [place] Blood Venipuncture / Unknown 01/05/2025 8:13 AM CDT 01/05/2025 8:49 AM CDT Cheyenne Thomas MD BLOOD BANK ORDERABLES Final Re sult [id number] [address] [place] [address], * PROTIME-INR (12/13/2024 11:35 AM CDT) PROTIME 13.3 12.3 - 14.9 Seconds 12/13/2024 11:58 AM CDT [facility] [place] INR 1.0 0.9 - 1.1 12/13/2024 11:58 AM CDT [facility] [place] Blood Venipuncture / Unknown 12/13/2024 11:35 AM CDT 12/13/2024 11:35 AM CDT Narrative [facility] [place] - 12/13/2024 11:58 AM CDT INR Therapeutic Range: Adult: 2.0 - 3.0 for pulmonary embolism or prophylaxis against venous thrombosis or systemic embolization. 2.0 - 3.0 for patients with tissue heart valves. 2.5 - 3.5 for patients with mechanical heart valves or post AL. Pediatric (12 years and under): 1.5 - 3.0 Although the target range in children is not well established, INR values of 1.5 - 3.0 are recommended for most patients. Higher values have been used in children with prosthetic cardiac valves and hereditary clotting disorders. (<3 days) therapeutic ranges have not been established. Conner Degroot MD HEMATOLOGY ORDERABLES Final Result Performing Organization Address City/[facility]/ZIP Co de Phone Number [facility] [place] CLIA# [id number] [address] [place] [address] * TYPE AND SCREEN (12/13/2024 11:35 AM CDT) Pathologist [facility] ABO GROUP A 12/13/2024 1:14 PM CDT [facility] [place] RH (D) TYPE Negative 12/13/2024 1:14 PM CDT [facility] [place] ANTIBODY SCREEN Negative 12/13/2024 1:14 PM CDT [facility] [place] Blood Venipuncture / Unknown 12/13/2024 11:35 AM CDT 12/13/2024 11:35 AM CDT Conner Degroot MD BLOOD BANK ORDERABLES Edited Result - Final Performing Organization Address [facility]/ZIP Co de Phone Number [facility] [place] CLIA# [id number] [address] [place] [address], * (ABNORMAL) COMPREHENSIVE METABOLIC PANEL (12/13/2024 11:35 AM CDT) Pathologist [facility] SODIUM 137 136 - 145 mmol/L 12/13/2024 12:07 PM CDT [facility] [place] POTASSIUM 3.8 3.5 - 4.9 mmol/L 12/13/2024 12:07 PM CDT [facility] CHLORIDE 105 98 - 107 mmol/L 12/13/2024 12:07 PM [facility] CO2 19(L) 22 - 29 mmol/L 12/13/2024 12:07 PM [facility] CALCIUM 9.4 8.6 - 10.2 mg/dL 12/13/2024 12:07 PM [facility] BUN 13 6 - 20 mg/dL 12/13/2024 12:07 PM [facility] CREATININE 1.10 0.67 - 1.17 mg/dL 12/13/2024 12:07 PM [facility] Comment:The GFR result is no t clinically significant on patients <18 or >70 years of age. GLUCOSE 213(H) 74 - 99 mg/dL 12/13/2024 12:07 PM [facility] TOTAL PROTEIN 7.0 6.0 - 8.3 g/dL 12/13/2024 12:07 PM [facility] ALBUMIN 4.0 3.4 - 4.8 g/dL 12/13/2024 12:07 PM [facility] BILIRUBIN TOTAL 0.8 0.0 - 1.0 mg/dL 12/13/2024 12:07 PM [facility] ALKALINE PHOSPHATASE 147(H) 40 - 129 U/L 12/13/2024 12:07 PM [facility] AST 27 12 - 38 U/L 12/13/2024 12:07 PM [facility] ALT 25 <41 U/L 12/13/2024 12:07 PM [facility] GFR >60 mL/min/1.7 3 sq meter 12/13/2024 12:07 PM [facility] Comment:eGFR calculated with 2020 CKD-EPI equation. Vegetarian diet, extremely high or low muscle mass, and may affect results. Cystatin C with Glomerular Filtration Rate is a suitable alternative for these patients. ANION GAP 13 8 - 16 mmol/L 12/13/2024 12:07 PM [facility] Blood Venipuncture / Unknown 12/13/2024 11:35 AM CDT 12/13/2024 11:35 AM CDT Conner Degroot MD CHEMISTRY ORDERABLES Final R esult [facility] [id number] [address] [place] [address] * XR CHEST PA AND LATERAL 2 [...] stable. IMPRESSION: Clear lungs. DICTATION LOCATION: 1 Conner Degroot MD DIAGNOSTIC IMAGING ORDERABLE S Final Result * EKG 12-LEAD (12/13/2024 10:13 AM CDT) 12/13/2024 10:1 3 AM CDT Narrative INTERFACE SYSTEM - 12/13/2024 2:23 PM CDT [facility] [address] [place] [address] Test Date: 2024-12-13 Pat Name: LORETO SEO Department: 12 Room: Gender: Male Communications Tech: : 1945 Requested By: CONNER Serra Order Number: [id number] Reading : Wai Day Measurements Intervals [place] Rate: 81 P: 57 WY: 308 QRS: 99 QRSD: 101 T: 7 QT: 359 QTc: 419 Interpretive Statements SINUS RHYTHM WITH FIRST DEGREE AV BLOCK BORDERLINE RIGHT AXIS DEVIATION NONSPECIFIC T-WAVE ABNORMALITY Electronically Signed On 12-13-2024 14:23:27 CDT by Wai Day Procedure Note Wai Day MD - 12/13/[address] [address] Test Date: 2024-12-13 Pat Name: LORETO SEO Department: 12 Room: Gender: Male Communications Tech: : 1945 Requested By: CONNER Serra Order Number: [id number] Reading : Wai Day Measurements Intervals [place] Rate: 81 P: 57 WY: 308 QRS: 99 QRSD: 101 T: 7 [...] A1C 7.0(H) <5.7 % of total Hgb [employer] Melchor Comment: For someone without known diabetes, [...] children. ESTIMATED AVERAGE GLUCOSE (MG/DL) 154 mg/dL [place] Melchor ESTIMATED AVERAGE GLUCOSE (MMOL/L) 8.5 mmol/L [employer] Melchor Comment: This test was performed on the Sondra aundrea c503 platform. Effective 09/08/23, a change in test platforms from the [employer] to the Sondra aundrea c503 may have shifted HbA1c results compared to historical results. Based on laboratory validation testing conducted at [facility], the [employer] platform relative to the [place] [...] recommended. FASTING:YES FASTING: YES Test Performed at: [place] [address] [address] [id number] Kym Beebe Blood 02/20/2024 10:1 0 AM CDT 02/20/2024 10:12 AM CDT us Jasvir Coffey MD CHEMISTRY ORDERABLES Final Resu lt [facility] [phone] [place] [address] [address] [place] [phone] * (ABNORMAL) LIPID PANEL (02/20/2024 10:10 AM CDT) CHOLESTEROL 117 <200 mg/dL [facility] HDL 22(L) > OR = 40 mg/dL [facility] TRIGLYCERIDE 145 <150 mg/dL [facility] [place] LDL CALCULATED 72 mg/dL (calc) [facility] Comment: Reference range: <100 Desirable range <100 mg/dL for primary prevention; <70 mg/dL for patients with CHD or diabetic patients with > or = 2 CHD risk factors. LDL-C is now calculated using the Elizabeth calculation, which is a validated novel method providing better accuracy than the Friedewald equation in the estimation of LDL-C. Tim GOMEZ et al. DARIO. 2013;310(19): 7881-6184 (http://education.[employer]uaG[employer]/faq/XMM649) CHOL/HDL RATIO 5.3(H) <5.0 (calc) [facility] NON-HDL CHOLESTEROL 95 <130 mg/dL (calc) [facility] Comment: For patients with diabetes plus 1 major ASCVD risk factor, treating to a non-HDL-C goal of <100 mg/dL (LDL-C of <70 mg/dL) is considered a therapeutic option. Test Performed at: [facility] [place] [address] [address] [place] [phone] Kym Beebe Blood 02/20/2024 10:1 0 AM CDT 02/20/2024 10:12 AM CDT us Jasvir Coffey MD CHEMISTRY ORDERABLES Final Resu lt [facility] [phone] [place] [address] [place] [phone] from Last 3 Months or Most Recently Relevant to Health Maintenance Insurance MEDICARE PART A AND B [employer] OPEN CHOICE PPO RX [facility] Medicare Part D RX [employer] Commercial * Guarantor: [employer] [employer] ([employer]) Account Type Relation to Patient Date of Phone Billing Address Corporate Other DEFAULT ADDRESS [address] [employer] Advance Directives For more information, please contact: [phone] * Full Code (Latest Code Status on File) Date Activated Date Inactivated Comments 01/05/2025 2:31 PM 01/06/2025 3:20 PM
--- NOTE | 2025-02-14 04:34 | ED.GENADULT ---
HPI - General Adult General Chief complaint: Wound/Laceration Stated complaint: laceration Time Seen by Provider: 02/14/25 03:53 History of Present Illness HPI narrative: Patient is an 79-year-old male who presents to the emergency department this evening status post a ground level fall which occurred at home. Patient states that he has these episodes where he syncopized is mainly while he is urinating. Patient has been evaluated for these episodes and was told that he has orthostatic hypotension. Patient fell onto his right knee and dehisced his recent right knee replacement wound. Bleeding is currently controlled. Patient also did hit the right side of his head on the ground. Patient is on dual anti-platelet therapy with aspirin and clopidogrel. Denies any additional symptoms or concerns. Related Data Home Medications ?Medication ?Instructions ?Recorded ?Confirmed ?Last Taken ?Type aspirin 81 mg tablet,delayed 81 mg PO QHS 01/28/25 02/14/25 01/27/25 History release (Adult Low Dose Aspirin) atorvastatin 80 mg tablet (Lipitor) 80 mg PO DAILY 01/28/25 02/14/25 01/28/25 History cetirizine 10 mg tablet (24Hour 10 mg PO DAILY 01/28/25 02/14/25 01/28/25 History Allergy) cholecalciferol (vitamin D3) 50 50 mcg PO QHS 01/28/25 02/14/25 01/27/25 History mcg (2,000 unit) capsule (Vitamin D3) clopidogrel 75 mg tablet (Plavix) 75 mg PO DAILY 01/28/25 02/14/25 01/28/25 History cyclobenzaprine 10 mg tablet 10 mg PO HS 01/28/25 02/14/25 01/27/25 History donepezil 10 mg tablet (Aricept) 10 mg PO HS 01/28/25 02/14/25 01/27/25 History empagliflozin 25 mg tablet 25 mg PO DAILY 01/28/25 02/14/25 01/28/25 History (Jardiance) hydrocodone 5 mg-acetaminophen 325 1 tablet PO Q4H PRN pain 01/28/25 02/14/25 01/28/25 History mg tablet isosorbide mononitrate 30 mg 30 mg PO QHS 01/28/25 02/14/25 01/27/25 History tablet,extended release 24 hr mecobalamin (vitamin B12) 1,000 1,000 mcg PO QHS 01/28/25 02/14/25 01/27/25 History mcg lozenges melatonin 5 mg capsule 5 mg PO QHS 01/28/25 02/14/25 01/27/25 History metformin 1,000 mg tablet 1,000 mg PO DAILY 01/28/25 02/14/25 01/28/25 History omeprazole 40 mg capsule,delayed 40 mg PO DAILY 01/28/25 02/14/25 01/28/25 History release tamsulosin 0.4 mg capsule 0.4 mg PO BID 01/28/25 02/14/25 01/28/25 09:00 History Allergies Allergy/AdvReac Type Severity Reaction Status Date / Time simvastatin Allergy Muscle Pain Verified 02/14/25 04:24 MAURICE Inhibitors AdvReac cough Verified 02/14/25 04:24 Review of Systems Review of Systems: All systems are reviewed and are negative unless stated otherwise in the HPI. [facility] Past Medical History Medical History Diabetes Insomnia Dementia BPH (benign prostatic hyperplasia) ACS (acute coronary syndrome) Social History Social History Smoking status: Never smoker Alcohol intake: never Substance use: never Lack of Transportation: No Lack of Food: Never True Current Housing: I Do Not Have Housing Concerned About Future Housing: YES Difficulty Paying Gas/Electric Bills: No Difficulty Paying for Meds: No Currently Unemployed: No Education: Bachelor's Degree Difficulty w/ Childcare or Family Care: No Spiritual care concerns: No Exam Narrative: General: Alert, awake, afebrile, in no acute distress. HEENT: PERRL, no rhinorrhea, no post nasal drip, oropharynx clear, small hematoma to the right head. Neck: Trachea midline, no JVD, no lymphadenopathy. Cardiovascular: Regular rate and rhythm, no murmurs, rubs or gallops, no peripheral edema. Respiratory: Clear to auscultation bilaterally, no tachypnea, no wheezing, no rhonchi, no rubs, no respiratory distress. Abdomen: Soft, nontender, nondistended, no rebound, no guarding, no peritoneal signs. Musculoskeletal: No joint swelling or deformity, normal muscle tone. Skin: No rashes or petechia, no signs of infection, wound dehiscence along patient's right total knee replacement incision site measuring approximately 15 cm. Psychiatric: Alert and oriented, normal behavior and judgment for situation. Neurological: Alert and oriented to person, place, and time. Follows all commands. No focal deficits, speech is clear and fluent. Course Vital Signs Vital signs: Vital Signs Temperature 97.5 F L 02/14/25 03:52 Pulse Rate 112 H 02/14/25 03:52 Respiratory Rate 12 02/14/25 03:52 Blood Pressure 154/90 H 02/14/25 03:52 Pulse Oximetry 100 02/14/25 03:52 Oxygen Delivery Room Air 02/14/25 03:52 Temperature 97.5 F L 02/14/25 03:52 Pulse Rate 101 H 02/14/25 04:10 Respiratory Rate 17 02/14/25 04:10 Blood Pressure 154/90 H 02/14/25 04:10 Pulse Oximetry 97 02/14/25 04:10 Oxygen Delivery Room Air 02/14/25 03:52 Procedures Laceration Laceration 1: Date: 02/14/25 Time: 05:11 Site: lower extremity Side (If applicable): right Size (cm): 15 Description: linear Depth: simple, single layer Pre-repair: wound explored and irrigated ====== Skin Level ====== Skin layer closed with: blank Number of sutures: 21 ====== Subcutaneous Layer ====== ====== Muscle Layer ====== ====== Tendon Layer ====== Medical Decision Making MDM Narrative Medical decision making narrative: The patient was evaluated by myself in the emergency department. History is obtained from patient who is an independent historian and physical exam was performed. External medical records were reviewed at this time. Patient is wound was repaired as detailed under procedural note. Imaging studies obtained included CT brain and C-spine without IV contrast which was independently interpreted by me revealing no acute process, which is pending final radiology interpretation. Differential diagnosis considerations include wound dehiscence, intracranial hemorrhage, fractures. Comorbidities impacting this visit include recent right total knee replacement. I have evaluated and discussed social determinants of health with the patient that could potentially impact subsequent diagnosis and treatment plans. On repeat assessment of the patient, reevaluation revealed that the patient is doing well and is in no acute distress. Patient symptoms have improved since he arrived to our emergency department. Repeat vital signs were all reviewed and noted to be stable. Differential diagnosis and treatment plan were discussed with the patient at bedside. Patient agrees with discussion and after shared medical decision making agrees with discharge. All questions were answered to the patient's satisfaction. Patient will follow up with his orthopedic surgeon within the next 7-10 days. Patient was provided with strict return precautions and instructed to return to the emergency department if any new or worsening symptoms develop. The patient was discharged in stable condition. Vital Signs Vital Signs: Vital Signs Temperature 97.5 F L 02/14/25 03:52 Pulse Rate 112 H 02/14/25 03:52 Respiratory Rate 12 02/14/25 03:52 Blood Pressure 154/90 H 02/14/25 03:52 Pulse Oximetry 100 02/14/25 03:52 Oxygen Delivery Room Air 02/14/25 03:52 Temperature 97.5 F L 02/14/25 03:52 Pulse Rate 101 H 02/14/25 04:10 Respiratory Rate 17 02/14/25 04:10 Blood Pressure 154/90 H 02/14/25 04:10 Pulse Oximetry 97 02/14/25 04:10 Oxygen Delivery Room Air 02/14/25 03:52 Discharge Plan Discharge Clinical Impression: Surgical wound dehiscence, Fall from ground level, Head injury Patient Disposition: Home Condition: Improved Instructions: Antibiotic Form, Care For Your Stitches (ED), Head Injury (DC) Additional Instructions: Please follow-up with your orthopedic surgeon within the next 7-10 days. The 21 blank that were removed today will need to be removed by medical professional within the next 10 days. Return to the ED if any new or worsening symptoms develop. Patient Language: Kuwaiti Prescriptions: No Action atorvastatin [Lipitor] 80 mg tablet 80 mg PO DAILY cetirizine [24Hour Allergy] 10 mg tablet 10 mg PO DAILY clopidogrel [Plavix] 75 mg tablet 75 mg PO DAILY Jardiance 25 mg tablet 25 mg PO DAILY metformin 1,000 mg tablet 1,000 mg PO DAILY omeprazole 40 mg capsule,delayed release(DR/EC) 40 mg PO DAILY tamsulosin 0.4 mg capsule 0.4 mg PO BID aspirin [Adult Low Dose Aspirin] 81 mg tablet,delayed release (DR/EC) 81 mg PO QHS cholecalciferol (vitamin D3) [Vitamin D3] 50 mcg (2,000 unit) capsule 50 mcg PO QHS mecobalamin (vitamin B12) 1,000 mcg lozenge 1,000 mcg PO QHS Rx Instructions: allow to dissolve in mouth OR may chew lightly before swallowing cyclobenzaprine 10 mg tablet 10 mg PO HS donepezil [Aricept] 10 mg tablet 10 mg PO HS isosorbide mononitrate 30 mg tablet extended release 24 hr 30 mg PO QHS melatonin 5 mg capsule 5 mg PO QHS hydrocodone-acetaminophen 5-325 mg tablet 1 tablet PO Q4H PRN (Reason: pain) midodrine 2.5 mg Tablet 5 mg PO TID 30 Days Qty: 180 0RF sertraline [Zoloft] 50 mg Tablet 25 mg PO QAM 30 Days Qty: 15 0RF Follow-up/Referrals: Minnie Rasheed [Other] - 1 Week Time of Disposition: 05:09
[2025-02-14 05:37] VITALS: BP 145/81; PULSE 92
[2025-02-14 05:43] VITALS: BP 145/81; PULSE 92; RESP 14; O2SAT 97
== END 2025-02-14 05:20 | disposition home or self-care (01) ==
PROVIDERS: Emergency Provider Emergency Medicine
DX: T81.31XA Disruption of external operation (surgical) wound, not elsewhere classified, initial encounter (principal); S00.93XA Contusion of unspecified part of head, initial encounter; F03.90 Unspecified dementia, unspecified severity, without behavioral disturbance, psychotic disturbance, mood disturbance, and anxiety; I24.9 Acute ischemic heart disease, unspecified; E11.9 Type 2 diabetes mellitus without complications; N40.0 Benign prostatic hyperplasia without lower urinary tract symptoms; Z96.651 Presence of right artificial knee joint; Z79.899 Other long term (current) drug therapy; Z79.82 Long term (current) use of aspirin; Z79.02 Long term (current) use of antithrombotics/antiplatelets; Z79.84 Long term (current) use of oral hypoglycemic drugs; W18.39XA Other fall on same level, initial encounter; Y83.8 Other surgical procedures as the cause of abnormal reaction of the patient, or of later complication, without mention of misadventure at the time of the procedure
CPT/HCPCS: 12005; 12020; 70450; 72125; 99284